=== PATIENT | male | born 1955 | race Caucasian/White ===

== ENCOUNTER → 2017-07-07 06:35 | Outpatient (CLI) | payer OTHER, SELFPAY ==
--- NOTE | 2017-07-07 06:37 | CT_ITS ---
STUDY: CT CHEST WITH CONTRAST REASON FOR EXAM: Male, 61 years old. History of pulmonary nodule. The patient has a history of a cervical cancer. The patient has a history of radiation chemotherapy. RADIATION DOSAGE (If Supplied By Facility): CTDIvol = ( 8.18 ) mGy, DLP = ( 282.72 ) mGycm TECHNIQUE: Transaxial imaging was performed following intravenous administration of 100 ml of Isovue 300 contrast material. Multiplanar coronal and sagittal images were reformatted. Individualized dose optimization techniques were used for this CT. COMPARISON: Comparison is made with prior study dated April 07, 2017. FINDINGS: A left-sided terry catheter is in situ. Emphysematous changes. There is a lobulated irregular nodular density in the peripheral aspect of the left lower lobe as seen on axial images 73 through 81. It presently measures 2.4 cm x 1.2 cm. This has increased in size as compared to prior study. A faint nodule measuring 5 mm is seen in the anterior aspect of the lingular segment of the left upper lobe anterior to the heart as seen on axial image #99. This may represent a focal area of scarring. Stable emphysematous changes. There is no demonstrated pleural abnormality. Normal heart and pericardium. Prominent left hilar lymph node measuring 2.2 cm. Normal hilar regions. Normal enhanced pulmonary arteries. Normal aorta arch and descending thoracic aorta. Normal osseous structures. A gastrostomy tube is seen within the stomach. CT/Chest WITH Contrast IMPRESSION: Increased size of the nodular density in the peripheral aspect of the left lower lobe. Enlargement of the left hilar lymph node. Electronically Signed: Yosef Blevins MD at 10:40 EST Tel [phone], Service support ,
[2017-07-07 06:51] LABS: CREATININE FINGERSTICK < 0.6 mg/dL (0.70-1.30); EGFR FINGERSTICK > 60.0000 mL/min (>60)
== END ==
PROVIDERS: Family Provider Nurse Practitioner Family; PCP Nurse Practitioner Family; Visit Provider Internal Medicine Medical Oncology
DX: C76.0 Malignant neoplasm of head, face and neck (principal); R91.1 Solitary pulmonary nodule; R59.0 Localized enlarged lymph nodes
CPT/HCPCS: 71260; Q9967

== ENCOUNTER → 2017-08-22 12:53 | Outpatient (CLI) | payer OTHER, SELFPAY ==
[2017-08-22 15:08] LABS: T4 Free Direct 1.85 ng/dL (0.76-1.46); Thyroid Stim Hormone (TSH) < 0.01 uIU/mL (0.358-3.74)
== END ==
PROVIDERS: Family Provider Nurse Practitioner Family; PCP Nurse Practitioner Family; Visit Provider Nurse Practitioner Family
DX: E03.8 Other specified hypothyroidism (principal)
CPT/HCPCS: 36415; 84439; 84443

== ENCOUNTER → 2017-09-16 06:49 | Outpatient (CLI) | payer OTHER, SELFPAY ==
--- NOTE | 2017-09-16 06:52 | CT_ITS ---
STUDY: CT CHEST WITH CONTRAST REASON FOR EXAM: Male, 61 years old. Pulmonary nodule- FOLLOW-UP. THROAT CANCER WITH CHEMO AND RADIATION RADIATION DOSAGE (If Supplied By Facility): CTDIvol = ( 10.16 ) mGy, DLP = ( 299.60 ) mGycm TECHNIQUE: Transaxial imaging was performed following intravenous administration of 100 ml of Isovue 300 contrast material. Individualized dose optimization techniques were used for this CT. COMPARISON: None. FINDINGS: The previously described subpleural nodule has increased in size since the previous study now measures 3.5 x 2.5 cm it measured previously 2.4 x 1.2 cm. There is a new left infrahilar mass measures approximately 4.2 x 3.4 cm resulted in complete occlusion of the right lower lobe bronchus with extension in the segmental bronchi of the right lower lobe. There is no demonstrated pleural abnormality. Normal heart and pericardium. Normal mediastinum. Normal hilar regions. Normal enhanced pulmonary arteries. Normal aorta arch and descending thoracic aorta. Normal osseous structures. There is no demonstrated abnormality of the visualized upper abdomen. CT/Chest WITH Contrast IMPRESSION: Findings are consistent with disease progression the previously described metastatic lesion in the left lung lower lobe has increased in size now measures 3.5 x 2.5 cm. There is a new left hilar mass measures 4.2 x 3.4 cm. Electronically Signed: Nando Angela MD at 12:54 EDT Tel , Service support ,
[2017-09-16 07:00] LABS: CREATININE FINGERSTICK < 0.6 mg/dL (0.70-1.30); EGFR FINGERSTICK > 60.0000 mL/min (>60)
== END ==
PROVIDERS: Family Provider Nurse Practitioner Family; PCP Nurse Practitioner Family; Visit Provider Internal Medicine Medical Oncology
DX: R91.1 Solitary pulmonary nodule (principal); Z85.21 Personal history of malignant neoplasm of larynx
CPT/HCPCS: 71260; Q9967; A4216; J2405

== ENCOUNTER 2017-09-26 12:00 | Day surgery (SDC) | payer OTHER, SELFPAY ==
[2017-09-26] VITALS (8 sets, daily range): BP systolic 107–127; BP diastolic 62–79; PULSE 72–96; RESP 12–16; TEMP 36.6–37.1; O2SAT 94–100; BMI 19.5
--- NOTE | 2017-09-26 | IMM_PTH ---
PATIENT: ALBERTO GRIDER LOC: EN U#:[id number] AGE/SX: 61/M ROOM: RE09/26/[address]: Dr. Carlos Robles DO : 1955 BED: DIS: 09/26/2017 SPEC #: [id number] RECD: 09/29/17 11:59 STATUS: IQRA REQ #: [id number] LUCIANO: 09/26/17 00:[address]: Carlos Robles DEPT: IMMUNOHISTOCHEMISTRY RECD BY: Tati Saez ENTERED: 09/29/17 12:01 SP TYPE: IMMUNO OTHR DR: Allison Sarmiento, WOUND CARE SPECIALIST-C Tissues: D - Lung, NOS Procedures: CK20 (add) CK5-6 (add) CK7 (add) CK8 (add) KI-67 (add) P16 (add) P53 (add) TTF1 (add) Pankeratin (initial) P40 (add) PHYSICIAN & INSTITUTION [place] [phone] SPECIMEN INFORMATION: Tissue Source: D ? Left hilar mass fluid Clinical Info: Hilar mass Specimen Number: [id number] CPT code: 55437, 98286 x9 METHODOLOGY: Deparaffinized sections of prefer/formalin-fixed tissue or PAP/DQ stained slides are incubated with monoclonal/polyclonal antibodies/oligonucleotide probes. Localization is made via biotin free immunoperoxidase method. Appropriate controls are performed and reacted as expected. Results on target cell population are indicated in the following table: RESULTS: ANTIBODY / CLONE RESULT Block D AE1-3 (AE1/AE3/PCK26) positive CK7 (OV-TL12/30) positive, weak CK8 (60ehbtA43) positive, weak CK20 (KS20.8) negative CK5-6 (D5 & 1684) positive P16 (E6H4) negative Ki-67 (30-9) positive, moderate P53 (DO-7) positive, moderate P40 (BC28) positive TTF-1 (8G7G3/1) negative These tests were developed and their performance characteristics determined by [facility]. They may not have been cleared or approved by the U.S. Food and Drug Administration. The FDA has determined that such clearance or approval is not necessary. INTERPRETATION: D. Left hilar mass fluid: Moderately differentiated non-small cell carcinoma, favor squamous cell carcinoma. SJ:angelia 09/30/17
--- NOTE | 2017-09-26 | FLU_PTH ---
PATIENT: ALBERTO GRIDER LOC: EN U#:[id number] AGE/SX: 61/M ROOM: RE09/26/[address]: Dr. Carlos Robles DO : 1955 BED: DIS: 09/26/2017 SPEC #: [id number] RECD: 09/26/17 14:57 STATUS: IQRA CAROLINE #: [id number] LUCIANO: 09/26/17 00:[address]: Carlos Robles DEPT: CYTOLOGY RECD BY: Og Solano ENTERED: 09/26/17 14:58 SP TYPE: Fluid OTHR DR: Allison Sarmiento, ROYCE Tissues: A - Lung, NOS B - Lung, NOS C - Lung, NOS D - Lung, NOS Procedures: Special Stain Group II Surgery Specimen Level IV Cytospin Fluid Comments: @ Specimen number changed from [id number] to [id number] @ on 09/29/17 at 0852 by RGOOD. HEADER OPERATION: EBUS with TBNA and endobronchial biopsy PRE-OP DIAGNOSIS: Hilar mass TISSUE SUBMITTED: A-C - EBUS FNA left hilar mass, D ? Left hilar mass fluid for cytology DIAGNOSIS CYTOLOGY A. EBUS, left hilar mass, FNA, aspiration #1 (smears): Malignant cells present mixed with necrotic cells and inflammation, suspicious for squamous cell carcinoma. B. EBUS, left hilar mass, FNA, aspiration #2 (smears): A few atypical squamous cells noted, suspicious for carcinoma. C. EBUS, left hilar mass, FNA, aspiration #3 (smears): Malignant cells present mixed with necrotic cells and inflammation, suspicious for squamous cell carcinoma. D. Left hilar mass fluid (cell block): Malignant cells present derived from moderately differentiated non-small cell carcinoma, favor squamous cell carcinoma. See comment. SJ:angelia 09/29/17 COMMENT The specimen is evaluated at the time of procedure by Dr. Simental. Immediate evaluation: A. EBUS, FNA, left hilar mass, aspiration #1: Atypical squamous mixed with inflammation. Adequate. Reported to Dr. Robles at 1:55 p.m. B. EBUS, FNA, left hilar mass, aspiration #2: A few atypical squamous cells noted. Reported to Dr. Robles at 2:00 p.m. C. EBUS, FNA, left hilar mass, aspiration #3: Atypical squamous mixed with inflammation. Adequate. Reported to Dr. Robles at 2:00 p.m. D. Immunohistochemistry ([id number]) supports the above diagnosis. CYTOLOGY STUDY Slides are reviewed. CYTOLOGY GROSS A ? Received labeled with the patient?s name, and designated ?EBUS FNA left hilar mass.? The specimen consists of two smears that are submitted for immediate cytologic evaluation (wet read). B - Received labeled with the patient?s name, and designated ?EBUS FNA left hilar mass.? The specimen consists of two smears that are submitted for immediate cytologic evaluation (wet read). C - Received labeled with the patient?s name, and designated ?EBUS FNA left hilar mass.? The specimen consists of two smears that are submitted for immediate cytologic evaluation (wet read). D - Received labeled with the patient's name and and designated per the requisition as left hilar mass. Submitted for cytology preparation including cell block. 09/26/17 TC:0 CPT: 47704, 60134, 06828 x2, 99613
--- NOTE | 2017-09-26 | LUNG_PTH ---
PATIENT: ALBERTO GRIDER LOC: EN U#:[id number] AGE/SX: 61/M ROOM: RE09/26/[address]: Dr. Carlos Robles DO : 1955 BED: DIS: 09/26/2017 SPEC #: [id number] RECD: 09/26/17 14:58 STATUS: IQRA CAROLINE #: [id number] LUCIANO: 09/26/17 00:[address]: Carlos Robles DEPT: SURGICAL PATHOLOGY RECD BY: Og Solano ENTERED: 09/26/17 14:58 SP TYPE: LUNG BX OTHR DR: Allison Sarmiento, CLEARANCE REP-C Tissues: Lung, NOS Procedures: Surgery Specimen Level IV HEADER OPERATION: EBUS with TBNA and endobronchial biopsy PRE-OP DIAGNOSIS: Hilar mass TISSUE SUBMITTED: Endobronchial biopsy, endobronchial lesion MICROSCOPIC DIAGNOSIS Endobronchial lesion, endobronchial biopsy: A fragment of necrotic material with atypical squamous cells, suspicious for carcinoma. Fragments of benign bronchial mucosa with chronic inflammation. See comment. MC:angelia 09/29/17 COMMENT Please correlate with corresponding EBUS, FNA, cytology ([id number]) with diagnosis of moderately differentiated non-small cell carcinoma, favor squamous cell carcinoma. MICROSCOPIC DESCRIPTION Slides are reviewed. GROSS DESCRIPTION Received in fixative is one container labeled with the patient's name and designated endobronchial biopsy, endobronchial lesion. The specimen consists of two irregular fragments of britt soft tissue that in aggregate measure 0.4 x 0.2 x 0.1 cm. The specimen is totally submitted in one cassette. / MC:angelia 09/26/17 TC:5 CPT: 51135
--- NOTE | 2017-09-26 14:30 | OP.PCM_ITS ---
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 As part of the patient's routine follow-up a PET CT was completed in September 2016 which revealed hypermetabolic activity within the left lower lobe and within the laryngeal structures. The patient underwent biopsies of his larynx in October 2016 which were negative. He also had a CT-guided lung biopsy completed of the left lower lobe lung nodule in December 2016 which was also negative. He then followed up with Dr. Leihg of oncology on September 18, 2017, after having undergone a follow-up chest CT with contrast, dated September 16. That imaging study demonstrated increased size in the left lower lobe lung nodule, along with a new infrahilar mass, which appeared to cause compression/obstruction of the left lower lobe mainstem bronchus. Therefore, the patient was referred to undergo bronchoscopy in order to obtain tissue biopsies. PROCEDURE: Bronchoscopy with endoscopic endobronchial ultrasound (EBUS), transbronchial needle aspiration, endobronchial biopsies INDICATION: Left hilar mass PHYSICIAN: Carlos Robles DO ANESTHETIC: This procedure was completed under the supervision of anesthesia. Please refer to their documentation accordingly. COMPLICATIONS: No immediate complications noted. DESCRIPTION OF PROCEDURE: A history and physical has been performed. Please see outpatient pulmonary clinic note. The patient's medications and allergies have been reviewed. The risks and benefits of the procedure and sedation options and risks were discussed with the patient at length. All questions were answered and informed consent was obtained. The patient's identification and proposed procedure were verified prior to the procedure by the physician. ASA GRADE ASSESSMENT: II After obtaining informed consent, the bronchoscope was introduced through the mouth, via the endotracheal tube and advanced to the tracheal bronchial tree bilaterally. The procedure was accomplished without difficulty. The patient tolerated the procedure well. FINDINGS: The trachea was of normal caliber. The carroll is sharp. The tracheal bronchial trees of the left and right lungs were examined to at least the first subsegmental level. The right tracheal bronchial tree was grossly normal in appearance. There was a large circumferential endobronchial lesion noted at the bifurcation of the left upper and left lower lobes. The lesion appeared to nearly completely obstruct the orifice of the left lower lobe takeoff. Once the airway inspection was completed, the standard bronchoscope was withdrawn and a convex probe endobronchial ultrasound (EBUS) bronchoscope was inserted through the same route. The endobronchial ultrasound endoscope was then utilized to systematically examine the superior/inferior mediastinal and hilar lymph nodes to assist with fine-needle aspiration. In total, 3 transbronchial needle aspirations were completed within the identified left hilar mass. On ultrasound, the mass measured at least 3.5 x 4.5 cm. Rapid on-site evaluation (LOPEZ): Preliminary cytology was suggestive of atypical squamous cells. Final pathology results are pending. Following this, the EBUS endoscope was subsequently withdrawn from the patient' s airway through the endotracheal tube. A conventional bronchoscope was then reinserted into the patient's airway, at which time, a total of 4 endobronchial biopsies were obtained from the endobronchial lesion noted at the bifurcation of the left upper and left lower lobes. Following this, cold saline was instilled to assist with hemostasis. Any retained secretions and/or blood was subsequently cleared. The bronchoscope was then withdrawn without complication. The patient was then transferred to the PACU, where they recovered in the usual fashion. IMPRESSION: 1. Large left hilar mass. Transbronchial needle aspiration was completed with preliminary cytology suggestive of atypical squamous cells. 2. Large endobronchial lesion noted at the bifurcation of the left upper and left lower lobes. 4 endobronchial biopsies were completed here. RECOMMENDATIONS: 1. Await final pathology results. 2. Follow-up in the pulmonary medicine clinic as scheduled. Code Visit 9xxxx: Other Procedure See Report - [id number]
== END 2017-09-26 16:36 | disposition home or self-care (01) ==
LOC: EN 12:00 → AC 12:02
PROVIDERS: Family Provider Nurse Practitioner Family; PCP Nurse Practitioner Family; Visit Provider Internal Medicine Critical Care Medicine
PROC: BB4BZZZ Ultrasonography of Pleura (ICD-10-PCS; principal; 2017-09-26 12:00)
DX: C34.32 Malignant neoplasm of lower lobe, left bronchus or lung (principal); E03.9 Hypothyroidism, unspecified; Z85.21 Personal history of malignant neoplasm of larynx; Z87.891 Personal history of nicotine dependence; Z79.899 Other long term (current) drug therapy; Z93.1 Gastrostomy status
CPT/HCPCS: 00520; 31625; 31652; 88108; 88305; 88313; 88341; 88342; J7120; A4216

== ENCOUNTER → 2017-10-14 16:24 | Outpatient (CLI) | payer MEDICARE, OTHER, SELFPAY ==
--- NOTE | 2017-10-14 16:41 | MRI_ITS ---
MR Brain WO/W Contrast INDICATION: New Lung Ca diagnosis. No complaints from patient COMPARISON: None TECHNIQUE: Multiplanar multisequence MRI examination of the brain without and with IV contrast. 6 mL of Gadavist given intravenously. FINDINGS: There is no evidence of restricted diffusion. The ventricular system is normal in size. Cortical sulci and basal cisterns are well seen. Minimal periventricular and few patchy subcortical T2/FLAIR signal hyperintensities are seen, compatible with very mild early chronic ischemic microvascular white matter changes. There is no evidence of parenchymal hemorrhage, mass effect, midline shift, or abnormal extra-axial collection. After contrast administration, there is no abnormal enhancement identified. Flow voids of the [place] vascularity are present. Paranasal sinuses and mastoid air cells are clear. MRI/Brain W/WO Contrast IMPRESSION: No evidence of intracranial metastatic disease. Minimal chronic ischemic microvascular white matter changes, otherwise unremarkable study. at 2329 Reported and signed by: Blanca Davila MD Electronically Signed: Blanca Davila MD at 23:27 EDT Tel , Service support ,
== END ==
PROVIDERS: Family Provider Nurse Practitioner Family; PCP Nurse Practitioner Family; Visit Provider Internal Medicine Medical Oncology
DX: C34.92 Malignant neoplasm of unspecified part of left bronchus or lung (principal)
CPT/HCPCS: 70553; A9585

== ENCOUNTER → 2017-10-16 11:32 | Outpatient (CLI) | payer MEDICARE, OTHER, SELFPAY ==
--- NOTE | 2017-10-16 08:00 | PET_ITS ---
EXAMINATION: FDG PET CT INDICATIONS: A 61-year-old male with reported history of primary head and neck and lung carcinoma presenting for restaging examination. COMPARISON EXAMINATION: Prior FDG PET study dated 09/30/16. INDEX LESION SIZE SUV INTERPRETATION PERSISTENT and NEW: Left mid posterolateral hemithorax pulmonary parenchyma, left lower posterior lung zone 8.1 cm x 4.5 cm (frame 150) compared to 11.5 mm, 09/30/16 12.7 compared to 2.9, 09/30/16 Fulfills quantitative criteria for viable neoplasm, interim metabolic progression NEW: Left thoracic perihilum, precarinal posterior mediastinum 51.9 mm x 48.2 mm 14.3 Fulfills quantitative criteria for viable neoplasm PREVIOUS: Left mid posterolateral hemithorax, left lower lobe, laryngeal structures Demonstrate metabolic resolution on the current examination TECHNIQUE: Following the intravenous administration of 14.84 mCi of F-18 deoxyglucose via the right antecubital fossa, multiplanar image acquisitions of the neck, chest, abdomen and pelvis to level of mid thigh, obtained at one hour post radiopharmaceutical administration contemporaneously interpreted with the current CT of the neck, chest, abdomen and pelvis to level of mid thigh, dated 10/16/17 via coregistration and prior FDG PET study dated 09/30/16 reveal: SERUM GLUCOSE LEVEL: 116 mg/dl. HEIGHT: 68 inches. WEIGHT: 130 lbs. FINDINGS: 1. Persistent and newly defined increased glucose concentration is manifest in the left mid-lower posterior, posterolateral hemithorax pulmonary parenchyma. The calculated maximum standard uptake value is 12.7 compared to 2.9 defined on the FDG PET study dated 09/30/16. The maximal axial diameter of the corresponding metabolic, morphologic abnormality on review of CT of the thorax dated 10/16/17 is 8.1 cm (transverse) x 4.5 cm (AP). 2. Newly defined increased glucose concentration is manifest in the left thoracic perihilum and subcarinal mediastinum, precarinal posterior mediastinum, retroesophageal in location generating a calculated maximum standard uptake value of 14.3. The maximal axial diameter of the largest metabolic, morphologic abnormality on review of CT of the thorax dated 10/16/17 is 51.9 mm (transverse) x 48.2 mm (AP). 3. Normal physiologic distribution of the radiopharmaceutical is apparent in the hepatic (1.5) and splenic parenchyma, both renal units, bladder and visualized intestinal tract. There is uniform distribution of the radiopharmaceutical concentration compared on the cerebellar hemispheres and cerebral cortex. Diffuse intestinal tract activity is noted throughout all four quadrants of the abdominal-pelvic retroperitoneum, mesentery consistent with normal physiologic distribution of the radiopharmaceutical. Prominent glucose metabolism is manifest within the oral cavity without definitive soft tissue abnormalities noted on review of CT of the head and neck dated 10/16/17. There is prominent glucose metabolism observed in the right-left atrial and ventricular myocardium. The previously identified left mid posterolateral hemithorax pulmonary parenchyma, left lower lobe, as well as laryngeal structure hypermetabolic foci noted on the FDG PET study dated 09/30/16 are not apparent on the current examination. Pertinent CT findings are as follows. CHEST: Pjwj-E-Jzlo-MediPort placement is noted. Atherosclerotic calcification is defined in the thoracic aorta without evidence of dilatation, aneurysm formation. Coronary arterial calcification is observed. There are no parenchymal densities-nodules in noted the right-left hemithorax manifesting quantitatively significant increased glucose metabolism. Interstitial changes defined in the left mid-lower posterior lung zone demonstrate no evidence of facilitated glucose metabolism. A left hemithorax pleural effusion demonstrates no evidence of facilitated glucose metabolism. ABDOMEN AND PELVIS: Atherosclerotic calcification is defined in the abdominal aorta without evidence of dilatation, aneurysm formation. Pelvic arterial calcification is observed. Dystrophic calcification is manifest within the prostate gland without evidence of quantitatively significant enhanced glucose metabolism. Right-left inguinal soft tissue densities with fatty hilus formation are non-glucose avid. SKELETAL: Degenerative changes defined in the cervical, thoracic and lumbar spine demonstrate no evidence for glucose hypermetabolism. PET/PET/CT Tumor Base -Thigh Subs IMPRESSION: 1. ABNORMAL EXAMINATION INDICATIVE OF MALIGNANT VIABLE NEOPLASM. 2. Redefined and newly apparent increased glucose metabolism manifest in the left hemithorax pulmonary parenchyma fulfills quantitative criteria for viable neoplasm. (Rose et al, Annals of Internal Medicine, 138:724, 2003). 3. Facilitated radiopharmaceutical concentration noted in the precarinal posterior mediastinum and left thoracic perihilum fulfills quantitative criteria for viable neoplasm. (Ximena et al, Journal of Clinical Oncology 16:2142, 1998). 4. There is interim metabolic resolution of the previously identified left lower lobe pulmonary parenchymal, as well as laryngeal structure hypermetabolic abnormalities. 5. Overall, compared to the prior FDG PET study dated 09/30/16, there is apparent current expression of defined viable neoplastic disease within the context of the left lower hemithorax pulmonary parenchyma, as well as left thoracic perihilum, precarinal posterior mediastinum. Electronic Signature Evelio Pat D.O. Electronically Signed: Evelio Pat DO at 23:50 EDT Tel , Service support ,
== END ==
PROVIDERS: Family Provider Nurse Practitioner Family; PCP Nurse Practitioner Family; Visit Provider Internal Medicine Medical Oncology
DX: C34.32 Malignant neoplasm of lower lobe, left bronchus or lung (principal)
CPT/HCPCS: 78815; A9552; A4216

== ENCOUNTER → 2017-11-07 14:12 | Outpatient (CLI) | payer MEDICARE, OTHER, SELFPAY ==
[2017-11-06 15:18] VITALS: BMI 20.7
--- NOTE | 2017-11-07 | IMM_PTH ---
PATIENT: ALBERTO GRIDER LOC: U#:[id number] AGE/SX: 69/M ROOM: RE11/07/[address]: Dr. Vish Ruiz DO : 1955 BED: DIS: SPEC #: [id number] RECD: 11/11/17 11:00 STATUS: IQRA REJere #: [id number] LUCIANO: 11/07/17 00:[address]: Vish Ruiz DEPT: IMMUNOHISTOCHEMISTRY RECD BY: Eliseo aWhl ENTERED: 11/11/17 11:03 SP TYPE: IMMUNO OTHR DR: Allison Sarmiento, SUPERVISOR [employer]SE-C Tissues: THORACIC FLUID Procedures: RCC (add) NAPSIN A (add) Magno Ret (add) CK20 (add) CK5-6 (add) CK7 (add) CK8 (add) HEP PAR (add) MACRO (add) PSA (add) TTF1 (add) AE1 (add) P40 (add) Vimentin (initial) PHYSICIAN & [address] [address] SPECIMEN INFORMATION: Tissue Source: Thoracic fluid Clinical Info: Pleural effusion Specimen Number: [id number] CPT code: 03867, 12824 x13 METHODOLOGY: Deparaffinized sections of prefer/formalin-fixed tissue or PAP/DQ stained slides are incubated with monoclonal/polyclonal antibodies/oligonucleotide probes. Localization is made via biotin free immunoperoxidase method. Appropriate controls are performed and reacted as expected. Results on target cell population are indicated in the following table: RESULTS: ANTIBODY / CLONE RESULT Vimentin (V9) negative * AE1-3 (AE1/AE3/PCK26) negative * CK7 (OV-TL12/30) negative * CK8 (44tucsZ08) negative * CK20 (KS20.8) negative TTF-1 (8G7G3/1) negative Napsin A (Rabbit Polyclonal) negative HepPar (OCh1E5) negative RCC (PN-15) negative PSA (ER-PR8) negative Macro (HAM-56) negative CK5-6 (D5 & 1684) negative * CALRET (polyclonal) negative * P40 (BC28) negative * - Positive in mesothelial cells - Positive in the macrophages These tests were developed and their performance characteristics determined by [facility]. They may not have been cleared or approved by the U.S. Food and Drug Administration. The FDA has determined that such clearance or approval is not necessary. INTERPRETATION: Thoracentesis fluid: Negative for malignant cells. SJ:mona 11/11/17
--- NOTE | 2017-11-07 | FLU_PTH ---
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 Vish Ruiz DO : 1955 BED: DIS: SPEC #: [id number] RECD: 11/07/17 16:50 STATUS: IQRA CAROLINE #: [id number] LUCIANO: 11/07/17 00:[address]: Vish Ruiz DEPT: CYTOLOGY RECD BY: Og Solano ENTERED: 11/10/17 10:05 SP TYPE: Fluid OTHR DR: Allison Sarmiento WORKERS COMPENSATION MANAGER-C Tissues: THORACIC FLUID Procedures: Pap Stain (control) Special Stain Group II Surgery Specimen Level IV Cell Block Cytospin Fluid HEADER OPERATION: Ultrasound-guided left thoracentesis PRE-OP DIAGNOSIS: Pleural effusion TISSUE SUBMITTED: Thoracentesis fluid for cytology DIAGNOSIS CYTOLOGY Thoracentesis (Cytospin and cell block): Negative for malignant cells. See comment. SJ:leandro 11/11/17 COMMENT Immunohistochemistry ([id number]) supports the above diagnosis. Please make reference to previous specimen cytology [id number] Left hilar mass fluid (cell block) with diagnosis of malignant cells present derived from moderately differentiated non-small cell carcinoma, favor squamous cell carcinoma. Correlation with clinical findings and appropriate followup are necessary. Case has been reviewed in consultation with Dr. Maldonado who concurs with the above diagnosis. IDC:AM CYTOLOGY STUDY Slides are reviewed. CYTOLOGY GROSS Received is 50 ml of red cloudy fluid labeled with the patient's name and and designated per the requisition as left thoracentesis. Submitted for cytology preparation including cell block. / 11/10/17 TC: 5 CPT: 18154, 64341
--- NOTE | 2017-11-07 14:16 | US_ITS ---
PROCEDURE: ULTRASOUND GUIDED THORACENTESIS. DATE: November 07, 2017.. INDICATION: Male, 61 years old. Left pleural effusion PHYSICIAN: Yosef Blevins M.D. PROCEDURE: The risks, benefits, and alternatives to the procedure were explained to the patient. The specific risks of bleeding, infection, and pneumothorax requiring chest tube insertion were discussed and accepted. Written informed consent was obtained. Ultrasonographic evaluation of the left lower pleural space was carried out. An adequate pocket was identified. The patient was placed in the sitting, upright position. The overlying skin was prepped and draped in sterile fashion. 1% lidocaine was administered subcutaneously for local anesthesia. Under ultrasound guidance, a 5French thoracentesis needle/catheter system was advanced into the left posterior lower pleural fluid collection. Approximately 530 mL of blood tinged fluid was drained. The catheter was removed, and a sterile dressing was applied. A specimen was collected and sent to the laboratory for analysis, as requested by the referring clinician. The patient tolerated the procedure well. A chest x-ray was ordered. US/Thoracentesis W US IMPRESSION: Ultrasound-guided left thoracentesis. Electronically Signed: Yosef Blevins MD at 15:56 EDT Tel [phone], Service support ,
--- NOTE | 2017-11-07 15:00 | RAD_ITS ---
STUDY: X-RAY CHEST REASON FOR EXAM: Male, 61 years old. The patient is status post left thoracentesis. TECHNIQUE: PA expiration and inspiration chest radiographs. COMPARISON: None. FINDINGS: The patient is status post left thoracentesis. No evidence of pneumothorax. Residual pleural parenchymal changes at the left lung base. RAD/Chest Insp/Exp 2 View IMPRESSION: There is no evidence of pneumothorax following the left thoracentesis. Electronically Signed: Yosef Blevins MD at 15:49 EDT Tel [phone], Service support ,
[2017-11-07 16:31] LABS: Cytology, Body Fluid / CSF SEE PATHOLOGY REPORT
[2017-11-07 17:06] LABS: Body Fluid Mononuclear WBC # 0.518 10^3/uL; Body Fluid Mononuclear WBC % 65.2 %; Body Fluid Polynuclear WBC # 0.277 10^3/uL; Body Fluid Polynuclear WBC % 34.8 %; Body Fluid Total Cells Counted 0.859 10^3/ul; White Blood Count/Body Fluid 0.795 10^3/uL
[2017-11-07 18:16] LABS: Lymphocytes 17 %; Macrophages 12 %; Monocytes 7 %; Neutrophil (Segs) 44 %
[2017-11-07 18:17] LABS: Auto B Fluid Analyzer BKGD Ct COUNTS W/IN LIMITS (W/IN LIMITS); Mesothelial Cells 20 %
[2017-11-07 18:18] LABS: Appearance/Body Fluid CLOUDY; Color/Body Fluid PINK; Source- Body Fluid THORACENTESIS
[2017-11-11 11:26] LABS: Pathologist Comment/Body Fluid Reviewed
== END ==
PROVIDERS: Family Provider Nurse Practitioner Family; PCP Nurse Practitioner Family; Visit Provider Student in an Organized Health Care Education/Training Program
DX: J90 Pleural effusion, not elsewhere classified (principal)
CPT/HCPCS: 32555; 71046; 87070; 87075; 87205; 88108; 88305; 88313; 88341; 88342; 89050

== ENCOUNTER 2017-11-10 09:23 | Inpatient (IN) | payer MEDICARE, OTHER, SELFPAY ==
[2017-11-06 15:18] VITALS: BMI 20.7
[2017-11-10] VITALS (12 sets, daily range): BP systolic 94–136; BP diastolic 50–76; PULSE 90–103; RESP 16–28; TEMP 36.8–37.9; O2SAT 94–98; BMI 25.0; BMI 18.9; BMI 19.0
--- NOTE | 2017-11-10 09:38 | EKG12_ITS ---
Test Reason : SOB Blood Pressure : / mmHG Vent. Rate : 100 BPM Atrial Rate : 100 BPM P-R Int : 116 ms QRS Dur : 078 ms QT Int : 308 ms P-R-T Axes : 070 055 051 degrees QTc Int : 397 ms Normal sinus rhythm Normal ECG Confirmed by MIKEY TURNER MD ([id number]), film editor supervisor WILLIAM CARLSON ([id number]) on 11/11/2017 9:56:50 AM Referred By: Vish Ruiz Confirmed By:MIKEY TURNER MD
--- NOTE | 2017-11-10 09:38 | RAD_ITS ---
STUDY: X-RAY CHEST REASON FOR EXAM: Male, 61 years old. Dyspnea and shortness of breath. History of pleural effusion. TECHNIQUE: Single AP portable view of the chest. COMPARISON: Comparison is made with prior study dated November 07, 2017. FINDINGS: A left-sided portacatheter is seen with the tip at the junction of the superior cava and right atrium. Since prior study, there is increasing pleural parenchymal changes at the left lung base with loss of volume in the left hemithorax. The right lung is hyperexpanded and clear. Normal size heart. Normal mediastinum and tashia. Normal visualized pulmonary arteries. Normal visualized aortic arch and descending thoracic aorta. Normal visualized thoracic spine. Normal visualized ribs, clavicles, and shoulders. There is no demonstrated abnormality of the visualized soft tissue structures of the upper abdomen. RAD/Chest 1 View (Portable) IMPRESSION: Progressive pleural parenchymal changes at the left lung base with volume loss in the left hemithorax. Electronically Signed: Yosef Blevins MD at 10:26 EDT Tel [phone], Service support ,
[2017-11-10] MEDS: Albuterol 2.5 MG/3 ML VIAL.NEB. INHALATION (09:53)
[2017-11-10 11:02] LABS: Absolute Lymphocyte Count 0.74 X10^3/ul (0.83-4.51); Absolute Neutrophil Count 8.3 X10^3/uL (2.0-7.7); Basophil# 0.02 X10^3/uL; Basophil% 0.2 % (0-1); Eosinophil# 0.05 X10^3/uL; Eosinophils% 0.5 % (0-5); Hematocrit 27.3 % (40-54); Hemoglobin 8.6 g/dl (13.0-16.5); Lymphocyte # 0.74 X10^3/ul (4.0); Lymphocyte % 7.9 % (19-41); Mean Corp Hgb Conc 31.5 g/gl (32-36); Mean Corpuscular Hgb 29.2 pg (27.0-32.0); Mean Corpuscular Volume 92.5 fL (80-94); Mean Platelet Vol. 8.1 fl (6.2-12.0); Monocyte# 0.29 X10^3/uL; Monocyte% 3.1 % (0-10); Neutrophil % 88.1 % (47-70); POSITIVE COUNT NO; POSITIVE DIFFERENTIAL NO; POSITIVE MORPHOLOGY YES; Platelet Count 358 K/mm3 (150-450); RBC Distribution Width CV 15.3 % (11.6-14.6); RBC Distribution Width SD 52.5 fl (35.1-43.9); Red Blood Count 2.95 M/mm3 (4.6-6.2); White Blood Count 9.4 K/mm3 (4.4-11.0)
[2017-11-10 11:03] LABS: Differential Indicated SCAN CRITERIA MET
[2017-11-10 11:16] LABS: Anion Gap 7 (5-15); BUN 28 mg/dL (7-18); BUN/Creat Ratio 29.8 RATIO (10-20); Calcium,Total 9.3 mg/dL (8.5-10.1); Chloride 95 mmol/L (98-107); Creatinine, Serum 0.94 mg/dL (0.70-1.30); EST Glomerular Filtration Rate 87 mL/min (>60); Est Glom Filt Rate - Afr Amer 105 mL/min (>60); Estimated Creatinine Clearance 77.16 ml/min; Glucose 137 mg/dL (74-106); Potassium 4.1 mmol/L (3.5-5.1); Sodium Level 136 mmol/L (136-145)
[2017-11-10 11:22] LABS: Hypochromasia 2+; Platelet Estimate ADEQUATE (ADEQ); Polychromasia 1+
--- NOTE | 2017-11-10 11:46 | ED.VISSUMM ---
- ER Visit Summary Date of Service: 11/10/17 Chief Complaint: [shortness of breath, chest pain] History of Present Illness: The patient is a 61 M [the presents with worsening shortness of breath over the last 2 days. He has a history of recently diagnosed left-sided lung cancer and had thoracentesis this past Friday. He states he initially felt better then began to feel progressively short of breath again over the last 2 days. He also describes intermittent chest pain and right-sided jaw pain. No diaphoresis or exertional symptoms. He is scheduled to start chemotherapy tomorrow. He has a history of past smoking. He appears in no acute distress. He has no other complaints.] Physical Examination: [General: The patient appears well and in no apparent distress. Patient is resting comfortably on cart. Skin: Warm, dry, no pallor noted. No rash. Left anterior chest port site benign. Head: Normocephalic, atraumatic Neck: Supple, nontender. No JVD. Eye: PERRLA, EOMI ENT: Moist mucus membranes, pharynx within normal limits. Cardiovascular: Regular Rate and Rhythm, no gallups or rubs Respiratory: Patient is in no distress, no accessory muscle use, lungs are clear to auscultation on the right side, diminished at the left base, no wheezing, rales or rhonchi Musculoskeletal: normal ROM, no deformity, no tenderness, no swelling. 2+ radial and DP pulses symmetric. GI: No tenderness to palpation, no masses appreciated. No rebound, guarding, or rigidity noted. Neurological: A&O, normal strength and sensation. GCS 15. Psychiatric: Cooperative] Test Results: [EKG shows sinus rhythm with a rate of 100, no acute ischemic changes or arrhythmia, overall unchanged from prior EKG. Hemoglobin is 8.6. CO2 is 34 and BUN is 28. Troponin and BNP are negative. Chest x-ray shows increased left-sided parenchymal changes from recent prior study.] Emergency Department Course and Treatment: [Patient was given albuterol breathing treatment without significant improvement of his symptoms. Chest x-ray finds reaccumulated and worsened left-sided pleural effusion. Patient is not hypoxic and appears in no respiratory distress. On reevaluation at 1140 pulse oximetry 95% on room air. His blood pressure is about 100 systolic which he states is normal for him. He has no fever. Given patient's chest pain and dyspnea I feel he requires admission to the hospital for further evaluation of his chest pain as well as possible repeat thoracentesis or placement of a drain for his left-sided pleural effusion that is making him symptomatically dyspneic. Given his cancer he may need evaluation for possible PE. CTA imaging not able to be performed in the emergency department due to IV dye allergy. Patient would possibly be a candidate for a VQ scan upon admission if indicated. This was discussed with patient and family who are agreeable. Patient's Heart Score is 4. Patient discussed with hospitalist, Dr. Menon, who is agreeable with admission. Patient admitted to PCU in stable condition. ] Treatment Plan: [see above] Disposition: [admission] Impression: [Dyspnea, Chest Pain, Recurrent Pleural Effusion] This note was generated with [employer] dictation software. It may contain incorrect words, spelling, and punctuation that were not noted in review of the chart prior to signing ED Disposition - Plan for ED Patient: Chief Complaint: Shortness of Breath Referrals: Allison Sarmiento FLUME MAKER-C [Primary Care Provider] -
--- NOTE | 2017-11-10 11:51 | ED.DCSUM_ITS ---
- ER Visit Summary Date of Service: 11/10/17 Chief Complaint: [shortness of breath, chest pain] History of Present Illness: The patient is a 61 M [the presents with worsening shortness of breath over the last 2 days. He has a history of recently diagnosed left-sided lung cancer and had thoracentesis this past Friday. He states he initially felt better then began to feel progressively short of breath again over the last 2 days. He also describes intermittent chest pain and right-sided jaw pain. No diaphoresis or exertional symptoms. He is scheduled to start chemotherapy tomorrow. He has a history of past smoking. He appears in no acute distress. He has no other complaints.] Physical Examination: [General: The patient appears well and in no apparent distress. Patient is resting comfortably on cart. Skin: Warm, dry, no pallor noted. No rash. Left anterior chest port site benign. Head: Normocephalic, atraumatic Neck: Supple, nontender. No JVD. Eye: PERRLA, EOMI ENT: Moist mucus membranes, pharynx within normal limits. Cardiovascular: Regular Rate and Rhythm, no gallups or rubs Respiratory: Patient is in no distress, no accessory muscle use, lungs are clear to auscultation on the right side, diminished at the left base, no wheezing, rales or rhonchi Musculoskeletal: normal ROM, no deformity, no tenderness, no swelling. 2+ radial and DP pulses symmetric. GI: No tenderness to palpation, no masses appreciated. No rebound, guarding, or rigidity noted. Neurological: A&O, normal strength and sensation. GCS 15. Psychiatric: Cooperative] Test Results: [EKG shows sinus rhythm with a rate of 100, no acute ischemic changes or arrhythmia, overall unchanged from prior EKG. Hemoglobin is 8.6. CO2 is 34 and BUN is 28. Troponin and BNP are negative. Chest x-ray shows increased left-sided parenchymal changes from recent prior study.] Emergency Department Course and Treatment: [Patient was given albuterol breathing treatment without significant improvement of his symptoms. Chest x- ray finds reaccumulated and worsened left-sided pleural effusion. Patient is not hypoxic and appears in no respiratory distress. On reevaluation at 1140 pulse oximetry 95% on room air. His blood pressure is about 100 systolic which he states is normal for him. He has no fever. Given patient's chest pain and dyspnea I feel he requires admission to the hospital for further evaluation of his chest pain as well as possible repeat thoracentesis or placement of a drain for his left-sided pleural effusion that is making him symptomatically dyspneic. Given his cancer he may need evaluation for possible PE. CTA imaging not able to be performed in the emergency department due to IV dye allergy. Patient would possibly be a candidate for a VQ scan upon admission if indicated. This was discussed with patient and family who are agreeable. Patient's Heart Score is 4. Patient discussed with hospitalist, Dr. Menon, who is agreeable with admission. Patient admitted to PCU in stable condition. ] Treatment Plan: [see above] Disposition: [admission] Impression: [Dyspnea, Chest Pain, Recurrent Pleural Effusion] This note was generated with [employer] dictation software. It may contain incorrect words, spelling, and punctuation that were not noted in review of the chart prior to signing ED Disposition - Plan for ED Patient: Chief Complaint: Shortness of Breath Referrals: Allison Sarmiento TOPPIECE CUTTER-C [Primary Care Provider] -
--- NOTE | 2017-11-10 12:57 | NURSING ---
called ER nurses medical assistants phlebotomists, okay to send up patient
--- NOTE | 2017-11-10 13:19 | HP.PCM_ITS ---
Problem List (1) Chronic anemia Status: Chronic (2) Dysphagia Status: Chronic (3) Non-small cell carcinoma of left lung, stage 3 Status: Chronic (4) History of laryngeal cancer Status: Chronic (5) Pulmonary nodule, left Status: Chronic (6) Tobacco dependence in remission Status: Chronic (7) PEG (percutaneous endoscopic gastrostomy) status Status: Chronic History of Present Illness Date of Admission: 11/10/17 Chief Complaint: Chest pain, shortness of breath. The patient is a 61 year old M with past medical history as mentioned above presented to the emergency room because of chest pain and shortness of breath. This patient had left thoracentesis for left-sided pleural effusion this past Friday, November 07, 2017 and later on that date, he started having chest pain and shortness of breath. The chest pain is both on the anterior chest as well as left lateral chest, pressure-like pain, 6 out of 10 in severity, goes across the left lateral chest, associated with shortness of breath as well as productive cough with small amount of yellow to green sputum, aggravated by taking a deep breath, intermittent pain without relieving factors. He has been more short of breath since he had the thoracentesis which comes mainly on exertion but has been progressively increasing since Friday. He denied fever chills. He denies dizziness or lightheadedness. He denies syncope or presyncope. Also, he complained of right ear pain that has been going on for 3 months, dull aching pain, associated with mild decreasing hearing on the right ear, aggravated by moving his right jaw. On September 26, 2017, he underwent endoscopic endobronchial ultrasound with transbronchial needle aspiration and endobronchial biopsies for left hilar mass and histopathology of that mass revealed moderately differentiated non-small cell carcinoma in favor of squamous cell carcinoma. He is supposed to start chemotherapy tomorrow. In the emergency department, his vital signs were stable and his pulse ox was normal on room air. His routine blood work is remarkable for hemoglobin of 8.6 g/dL, otherwise normal. EKG revealed normal sinus rhythm, normal CT interval, normal QRS, normal QTC and no acute ischemic changes. His troponin is negative. Chest x-ray revealed worsening left-sided pleural effusion. He is being admitted for chest pain, worsening left sided pleural effusion, shortness of breath and right ear pain with questionable tympanic membrane rupture. Past Medical History Past Medical History (Chronic Problems): Chronic Problems (Last Reviewed 11/06/17 @ 15:29 by Lotus Lemos, RN) Chronic anemia (Chronic) Dysphagia (Chronic) Non-small cell carcinoma of left lung, stage 3 (Chronic) History of laryngeal cancer (Chronic) Pulmonary nodule, left (Chronic) Tobacco dependence in remission (Chronic) PEG (percutaneous endoscopic gastrostomy) status (Chronic) Medical History: Medical History (Last Reviewed 11/06/17 @ 15:29 by Lotus Lemos, RN) Anemia D64.9 Chicken pox B01.9 Dysphagia R13.10 Hypernatremia E87.0 Hyponatremia E87.1 Hypothyroidism E03.9 LEFT WRIST SURGERY Laryngeal cancer C32.9 Lymphadenitis I88.9 Measles B05.9 Mumps B26.9 Status post insertion of percutaneous endoscopic gastrostomy (PEG) tube Z93.1 Allergies Iodinated Contrast- Oral and IV Dye [CT] Allergy (Mild, Verified 11/10/17 09:26) Rash Home Medications: Ambulatory Orders Medication Instructions Recorded Albuterol IH (ProAir) [Proair Hfa] 2 puff INHALATION Q6H PRN 11/10/17 Dexamethasone [Decadron] 1 tablet PO DAILY@0800 11/10/17 Levothyroxine [Synthroid] 1 tablet PO DAILY 11/10/17 Lorazepam [Ativan] 1 tablet PO BID 11/10/17 Oxycodone HCl/Acetaminophen 1 tablet PO Q6H PRN 11/10/17 [Percocet 5-325] Surgical History: Surgical History (Last Reviewed 11/06/17 @ 15:29 by Lotus Lemos, RN) History of hernia repair Z98.890, Z87.19 Surgical History: herniorrhaphy, - - PEG tube placement. Psychiatric History: Anxiety Lives: With Family Smoking Status: Former smoker Alcohol: None Drugs: None - *Family History Paternal Family History: Family History (Last Reviewed 11/06/17 @ 15:29 by Lotus Lemos, RN) Father Heart disease History Items: Heart Disease - Maternal Family History: Family History (Last Reviewed 11/06/17 @ 15:29 by Lotus Lemos, RN) Father Heart disease History Items: No pertinent history Review of Systems Constitutional: Reports: Anorexia, Weakness. Denies: Chills, Fever Eyes: Denies: Blurred vision, Double vision, Drainage, Redness HEENT: Reports: Ear Pain - Right ear pain., Hearing Changes. Denies: Difficulty Hearing, Eye Pain, Nasal Congestion, Sore Throat Cardiovascular: Reports: Chest Pain. Denies: Edema, Heaviness, Light Headedness , Orthopnea, Paroxysmal Noc. Dyspnea, Syncope Respiratory: Reports: Shortness of Breath, Shortness of breath upon exertion. Denies: Cough, Hemoptysis, Pleuritic Pain, Sputum production, Wheezing Gastrointestinal: Denies: Abdominal Pain, Constipation, Diarrhea, Nausea, Vomiting Genitourinary: Denies: Dysuria, Frequency, Hematuria Musculoskeletal: Denies: Arm Pain, Back Pain, Foot Pain Skin: Denies: Dryness, Rash Neurological: Denies: Balance problems, Change in Speech, Confusion, Focal weakness, Headaches, Incoordination, Numbness Psychiatric: Reports: Anxiety. Denies: Depression Endocrine: Denies: Change in Body Habitus, Polydipsia VTE Information - Inpt Only VTE Present on Admission: No VTE Mechan Device Prophylaxis: SCD's VTE Pharm Prophylaxis ordered?: No - Physical Exam General: Alert, Oriented x3, Cooperative, No apparent distress HEENT: Atraumatic, PERRLA, EOMI, Normocephalic, - - Tympanic membrane on the right: 2 red spots, questionable perforated tympanic membrane. Oral: Moist Mucosa, No Gingival or Mucosal Lesions/ Ulcerations Neck: Supple, No JVD, Negative Carotid Bruits, Trachea Midline, Thyroid Normal Size and Texture Lungs: Clear to auscultation, No rhonchi, No wheeze, No rales, Diminished Cardiovascular: Regular rate, Regular Rhythm, Normal S1, Normal S2, PMI Normal Abdomen: Bowel Sounds Present, Soft, Non Tender, Non-Distended, No Hepato- splenomegaly, - - PEG tube in place. Extremities: No clubbing, No cyanosis, No edema Skin: No rashes, No breakdown Lymphatic: No Cervical, Supraclavicular, or Inguinal Adenopathy Neurological: Cranial nerves II-XII grossly intact, Motor Exam 5/5 strength throughout Psych/Mental Status: Normal Affect, Appropriate, Alert and oriented to time, place, person, mood and affect Vital Signs Temp Pulse Resp BP Pulse Ox 98.8 F 90 25 H 102/55 L 95 11/10/17 09:24 11/10/17 12:20 11/10/17 12:20 11/10/17 12:20 11/10/17 12:20 Oxygen Delivery Method Room Air Weight: 160 lb Body Mass Index (BMI) 25.0 Laboratory Tests Past 24 Hrs 11/10/17 11/10/17 11/10/17 10:53 10:53 10:53 WBC 9.4 RBC 2.95 L Hgb 8.6 L Hct 27.3 L MCV 92.5 MCH 29.2 MCHC 31.5 L RDW 15.3 H RDW Differential 52.5 H Plt Count 358 MPV 8.1 Immature Gran % (Auto) 0.200 Neut % (Auto) 88.1 H Lymph % (Auto) 7.9 L [place] % (Auto) 3.1 Eos % (Auto) 0.5 Baso % (Auto) 0.2 Absolute Neuts (auto) 8.3 H Absolute Lymphs (auto) 0.74 L Total Counted Not Reportable Platelet Estimate ADEQUATE Polychromasia 1+ Hypochromasia 2+ Sodium 136 Potassium 4.1 Chloride 95 L Carbon Dioxide 34.0 H Anion Gap 7 BUN 28 H Creatinine 0.94 Estim Creat Clear Calc 77.16 Est GFR (MDRD) Af Amer 105 Est GFR (MDRD) Non-Af 87 BUN/Creatinine Ratio 29.8 H Glucose 137 H Calcium 9.3 Troponin I 0.018 B-Natriuretic Peptide 32.0 Clinical Impression(s) from Imaging Studies Chest X-Ray 11/10/17 09:38 IMPRESSION: Progressive pleural parenchymal changes at the left lung base with volume loss in the left hemithorax. Electronically Signed: Yosef Blevins MD at 10:26 EDT Tel [phone], Service support , Assessment/Plan This is a 61 years old male patient presented to the emergency room because of anterior chest pain, left lateral chest pain and shortness of breath, found to have worsening left side pleural effusion in context of recent diagnosis of non- small cell lung cancer and also complains of right ear pain with change in hearing and questionable perforated right tympanic membrane. #1 worsening left pleural effusion: Status post recent left thoracentesis on November 07, 2017, 530 mL of blood-tinged fluid was drained. Pleural fluid analysis reviewed, no pleural fluid protein, albumin or LDH performed. Chest x- ray from today reviewed, revealed worsening left sided pleural effusion. Vital signs are stable, pulse ox is maintained on room air. Plan: Admit to PCU, cardiac monitoring, serial cardiac enzymes, IV morphine as needed for pain, OxyIR as needed for pain, IV fluids, IV antiemetics, pulmonology consult, PT, PTT and INR, PT OT evaluation and treatment. #2 recent diagnosis of non-small cell lung cancer: Status post endoscopic endobronchial ultrasound with biopsies, biopsy revealed moderately differentiated non-small cell lung carcinoma, in favor of squamous cell carcinoma. The plan was to start him on chemotherapy today, now would be postponed. Plan as above. #3 chest pain: Seems to be atypical, it is on both anterior chest and left lateral chest. EKG revealed normal sinus rhythm, no acute ischemic changes. First troponin is negative. Plan: Cardiac monitoring, serial cardiac enzymes, repeat EKG tomorrow morning. #4 right ear pain/questionable perforated right tympanic membrane: This has been going on for 3 months. Right ear examination revealed 2 red spots on the tympanic membrane, questionable perforation. Plan for ENT consult. #5 acute on chronic anemia: It is normocytic anemia, likely because of anemia chronic disease secondary to cancer. Baseline hemoglobin has been fluctuating around 11-12 g/dL. Admission hemoglobin is 8.6 g/dL, it is the first time has been this low. At this time, no evidence of active bleeding. Pleural effusion could be hemorrhagic. At this time, noted indication for blood transfusion. Plan to repeat CBC tomorrow morning. #6 history of laryngeal cancer: Status post chemotherapy and radiation, in remission. #7 chronic dysphagia: Status post PEG tube placement, on tube feeds. #8 DVT prophylaxis: SCDs. This note was generated with [employer] dictation software. It may contain incorrect words, spelling, and punctuation that were not noted in checking the note before signing. Code Visit Inpatient E&M: 73675 Init Hosp L3
--- NOTE | 2017-11-10 13:43 | CASEMGMT ---
Social Work Note In to complete initial assessment as pt is to be admitted. Introduced self and role at [facility]. Pt presents with pleasant affect and is accompanied by his son, Elias. Pt reports to live alone in a one-story home with no entry steps. Denies access issues or use of DME. Pt is independent with ADLs. Confirms that his PCP is Dr. Sarmiento and he also sees Dr. Leigh, Dr. Robles and is scheduled to see Dr. Ruiz for radiation. Preferred pharmacy is [facility]. HCPOA is his son, Elias. Pt does not anticipate needs at discharge, but is aware that RN JONNA or SW is available if needs arise. Adrianne Lovell, HAZARD MITIGATION OFFICER, ABSTRACT WRITER
--- NOTE | 2017-11-10 14:10 | EKG12_ITS ---
Test Reason : Blood Pressure : / mmHG Vent. Rate : 094 BPM Atrial Rate : 094 BPM P-R Int : 122 ms QRS Dur : 086 ms QT Int : 328 ms P-R-T Axes : 069 061 052 degrees QTc Int : 410 ms Normal sinus rhythm Normal ECG When compared with ECG of 08-NOV-2016 09:54, No significant change was found Confirmed by JOHNNY FERNANDEZ, MIKEY ([id number]), order editor WILLIAM CARLSON ([id number]) on 11/11/2017 10:48:59 AM Referred By: KEVIN Confirmed By:MIKEY TURNER MD
--- NOTE | 2017-11-10 14:46 | CON.PCM_ITS ---
Problem List (1) Non-small cell carcinoma of left lung, stage 3 Status: Chronic (2) History of laryngeal cancer Status: Chronic (3) Pulmonary nodule, left Status: Chronic (4) Chronic anemia Status: Chronic (5) Dysphagia Status: Chronic (6) Tobacco dependence in remission Status: Chronic (7) PEG (percutaneous endoscopic gastrostomy) status Status: Chronic Reason for Consult Date of Consultation: 11/10/17 Reason for Consultation: worsening L pleural effusion, recent diagnosis lung CA History of Present Illness: The patient is a 61 year old M with a past medical history as below, last seen by Dr. Robles on 10/01/17 secondary to hilar mass s/p EBUS 09/26, diagnosis of non- small cell carcinoma, favor squamous cell, presented to the ED on 11/10/17 with complaints of progressive shortness of breath since Friday. The patient underwent a left-sided thoracentesis on Friday and has developed worsening shortness of breath and chest discomfort since then. There was approximately 530 mL of blood-tinged fluid drained. A chest x-ray was performed postprocedure and showed no pneumothorax. The patient's chest discomfort does worsen with deep inspiration and with exertion. He has tried using his albuterol inhaler with some improvement in his pain and breathing. The patient has an occasional productive cough of yellow sputum, was green a couple of days ago. Denies any epistaxis or hemoptysis. Denies any fever or chills. Also complains of inability to pass much food down his esophagus, has been losing weight. He has been having nausea and vomiting as well. The patient does have a PEG tube for nutrition. Complains of night sweats. Patient also has a history of laryngeal cancer status post chemoradiation in 2016 with subsequent dysphagia. Not on a modified diet. Significant past smoking history, quit in 2016. A CT of the chest was performed on September 16 that showed increased size in the left lower lobe lung nodule along with a new infrahilar mass, which appeared to cause compression/obstruction of the left lower lobe mainstem bronchus. However, the distal lung remained aerated indicating that the obstruction was not complete. Initial vitals BP 136/76, pulse 103, RR 20, 98.8?F, 97% on room air. Blood work revealed no leukocytosis, hemoglobin of 8.6, was 12.8 on September 23, 2017. Coags were normal. Chemistry remarkable for chloride of 95 and serum bicarb of 34. BUN was 28 and creatinine 0.94. Troponin and BNP were negative. EKG sinus rhythm with no acute changes. Chest x-ray showing progressive pleural parenchymal changes at the left lung base with volume loss in the left hemithorax. Right lung was clear. The patient was transitioned to the progressive care unit for further evaluation and management, with plans for probable Pleurx catheter insertion. Past Medical History Past Medical History (Chronic Problems): Chronic Problems (Last Reviewed 11/06/17 @ 15:29 by Lotus Lemos, RN) Chronic anemia (Chronic) Dysphagia (Chronic) Non-small cell carcinoma of left lung, stage 3 (Chronic) History of laryngeal cancer (Chronic) Pulmonary nodule, left (Chronic) Tobacco dependence in remission (Chronic) PEG (percutaneous endoscopic gastrostomy) status (Chronic) Medical History: Medical History (Last Reviewed 11/06/17 @ 15:29 by Lotus Lemos, MAIRO) Anemia D64.9 Chicken pox B01.9 Dysphagia R13.10 Hypernatremia E87.0 Hyponatremia E87.1 Hypothyroidism E03.9 LEFT WRIST SURGERY Laryngeal cancer C32.9 Lymphadenitis I88.9 Measles B05.9 Mumps B26.9 Status post insertion of percutaneous endoscopic gastrostomy (PEG) tube Z93.1 Allergies Iodinated Contrast- Oral and IV Dye [CT] Allergy (Mild, Verified 11/10/17 09:26) Rash Home Medications: Ambulatory Orders Medication Instructions Recorded Albuterol IH (ProAir) [Proair Hfa] 2 puff INHALATION Q6H PRN 11/10/17 Dexamethasone [Decadron] 1 tablet PO DAILY@0800 11/10/17 Levothyroxine [Synthroid] 1 tablet PO DAILY 11/10/17 Lorazepam [Ativan] 1 tablet PO BID PRN 11/10/17 Oxycodone HCl/Acetaminophen 1 tablet PO Q6H PRN 11/10/17 [Percocet 5-325] Surgical History: Surgical History (Last Reviewed 11/06/17 @ 15:29 by Lotus Lemos, MARIO) History of hernia repair Z98.890, Z87.19 Surgical History: herniorrhaphy, - - PEG tube placement. Psychiatric History: Anxiety Lives: With Family Smoking Status: Former smoker Tobacco Use: Cigarettes - 12-ygdf-odch history Alcohol: None Drugs: None - *Family History Paternal Family History: Family History (Last Reviewed 11/06/17 @ 15:29 by Lotus Lemos RN) Father Heart disease History Items: Heart Disease - Maternal Family History: Family History (Last Reviewed 11/06/17 @ 15:29 by Lotus Lemos RN) Father Heart disease History Items: No pertinent history Review of Systems Constitutional: Reports: Anorexia, Night Sweats, Weakness, Weight Change, Fatigue. Denies: Chills, Fever Eyes: Denies: Vision Change HEENT: Reports: Difficulty Swallowing, - - Throat feels tight. Denies: Head Aches, Nasal bleeding, Nasal Congestion, Post Nasal Drip, Sinus Congestion, Sinus Drainage, Sore Throat Cardiovascular: Reports: Chest Pain, Chest Tightness, Orthopnea. Denies: Edema , Light Headedness, Palpitations, Paroxysmal Noc. Dyspnea, Syncope Respiratory: Reports: Cough, Pleuritic Pain, Shortness of breath upon exertion, Sputum production. Denies: Hemoptysis, Wheezing Gastrointestinal: Reports: Nausea, Vomiting. Denies: Abdominal Pain, Constipation, Diarrhea, Dyspepsia, Hematemesis, Hematochezia, Melena Genitourinary: Denies: Dysuria, Frequency, Hematuria, Nocturia, Retention Musculoskeletal: Denies: Leg Pain, Neck Pain Skin: Denies: Rash, Wounds Neurological: Reports: Difficulty swallowing. Denies: Balance problems, Change in Speech, Confusion, Focal weakness, Numbness, Tingling, Tremor, Seizures Psychiatric: Reports: Anxiety, Depression. Denies: Suicidal Ideations Endocrine: Reports: Change in Body Habitus - Losing weight, inability to eat Hematologic/ Lymphatic: Reports: Anemia, Easy Bruising, Easy Bleeding. Denies: Adenopathy, Hx of blood clot Subjective: The patient was seen and examined. Denies any shortness of breath per se, however feels like he just cannot take a deep breath. He is maintaining appropriate saturations on room air. Denies any fever or chills. No current cough or sputum production. His chest pain is waxing and waning, typically increases with activity or deep breath. Objective: Clinical Impression(s) from Imaging Studies Chest X-Ray 11/10/17 09:38 IMPRESSION: Progressive pleural parenchymal changes at the left lung base with volume loss in the left hemithorax. Electronically Signed: Yosef Blevins MD at 10:26 EDT Tel [phone], Service support , - Physical Exam General: Alert, Oriented x3, Cooperative, No apparent distress, - - Cachectic, appears older than stated age HEENT: Atraumatic, PERRLA, Normocephalic Oral: No Gingival or Mucosal Lesions/ Ulcerations, Dry Mucosa Neck: Supple, No Nodes, No Nuchal Rigidity, Trachea Midline, - - no overt masses palpated but evidence of radiation w/areas of firmness Lungs: No rhonchi, - - Diminished on the left with some dullness to percussion, no rhonchi wheezes or rales. Right lung clear. Cardiovascular: Regular rate, Regular Rhythm, Normal S1, Normal S2, No murmurs, No rub noted, No Gallop Abdomen: Bowel Sounds Present, Soft, Non Tender, Non-Distended Extremities: No clubbing, No cyanosis, No edema Skin: No rashes, No breakdown Musculoskeletal: No Tenderness to Palpation of Joints or Extremities, Arthritic Changes, Cachexia, Muscle Wasting Lymphatic: No Cervical, Supraclavicular, or Inguinal Adenopathy Neurological: Cranial nerves II-XII grossly intact, Neuro grossly intact, Motor Exam 5/5 strength throughout Psych/Mental Status: Alert and oriented to time, place, person, mood and affect Vital Signs Temp Pulse Resp BP Pulse Ox 98.2 F 98 18 104/52 L 96 11/10/17 14:05 11/10/17 14:05 11/10/17 14:05 11/10/17 14:05 11/10/17 14:05 Oxygen Delivery Method Room Air Weight: 121 lb 0.54 oz Body Mass Index (BMI) 18.9 Laboratory Tests Past 24 Hrs 11/10/17 11/10/17 14:15 14:25 PT Pending INR Pending APTT Pending Troponin I Pending Assessment/Plan RECOMMENDATIONS 1. Oxygen supplementation to keep saturations greater than 90% 2. Encourage incentive spirometer 3. Increase activity as tolerated 4. Continue PRN aerosols 5. Consult surgery, plan for Pleurx catheter placement 6. Continue nutrition through PEG tube IMPRESSIONS 1. Newly diagnosed left lung cancer, hilar mass Follows with Dr. Robles, had an endobronchial ultrasound guided biopsy in September 2017 with diagnosis of non-small cell lung cancer. Patient with recent thoracentesis on 11/06 and removal of approximate 530 mL of bloody fluid. Current imaging showing rapid reaccumulation of the fluid, highly suspicious for recurrent malignant effusion. Would recommend placement of Pleurx cath to facilitate drainage. The indications, risks, and benefits were reviewed with the patient and he is agreeable to proceed with procedure. Coags were normal. Consult placed to surgery. 2. Chronic anemia/dysphagia/history of laryngeal cancer status post radiation/ tobacco dependence in remission Complicates care, management, recovery, and prognosis. May benefit from a swallowing evaluation. Encouraged ongoing smoking cessation. Check a CBC in the morning as hemoglobin is significantly lower than last month. No evidence of acute bleed at this time. Thank you for the opportunity to participate in this patient's care, please do not hesitate contact us with any further questions or concerns. This note was generated with [employer] dictation software. It may contain incorrect words, spelling, and punctuation that were not noted in checking the note before signing.
[2017-11-10 15:01] LABS: International Normalized Ratio 1.1; Prothrombin Time (Protime)PT. 14.6 SECONDS (11.7-14.9)
[2017-11-10 15:02] LABS: Partial Thromboplast Time 33.7 Seconds (24.1-36.2)
[2017-11-10 15:26] LABS: Mucous, Urine 0 SEEN /hpf (<or=2+); Red Blood Cells-Urine 0 SEEN /hpf (0-5); Squamous Epithelial Cells - UA 0 SEEN /hpf (0-5); White Blood Cells 0 SEEN /hpf (0-5)
[2017-11-10 15:30] LABS: Color, Urine Yellow (Yellow); Glucose, Dipstick Normal (Normal); Ketone-Dipstick Negative (Negative); Leukocyte Esterase-Dipstick Negative /ul (Negative); Nitrite-Dipstick Negative (Negative); Occult Blood-Urine Negative /ul (Negative); Protein-Dipstick 15 mg/dl (Negative); Urine Bilirubin Dipstick Negative (Negative); Urine Clarity Clear (Clear); Urine Urobilinogen Normal (Normal)
[2017-11-10] MEDS: 0.9% Normal Saline 1,000 ML 75 ML IV (15:32)
[2017-11-10] MEDS: 0.9% NaCl Peripheral Flush Adult/Peds IV ×2 (15:34→18:59)
[2017-11-10 15:55] LABS: Bacteria RARE /hpf (None Seen)
[2017-11-10] MEDS: Morphine 2 MG/ML Syringe 1 MG IV (18:57)
--- NOTE | 2017-11-10 19:00 | PCM.PN.BLA ---
Progress Note Asked to see the patient at the request of Dr. Menon for an abnormal ear drum 61 yo white male well known to me with a previous diagnosis of laryngeal carcinoma. He is s/p chemoradiation therapy for this. He recently was diagnosed with lung CA. He was admitted for increasing shortness of breath. He will be undergoing a pleural catheter placement tomorrow for his pleural effusion and is slated to start chemotherapy for his lung carcinoma. He has been seeing an oral surgeon for a left mandibular micah spicule. He had addressed by oral surgery as it was bothering his tongue. The area of the mandible has not healed. He as been having some right ear pain as well. Recent PET scan did not reveal uptake in the larynx or mandible. PE: awake alert nad left TM is normal Right TM is normal. He has small broken vessel just posterior to the TM on the EAC skin. This is likely from coughing (or trauma which the patient denies). Nose- no bleeding lesions M/op- exposed bone on the right lingual side of the mandible (1 x 3 cm). Neck no adenopathy A: Referred otalgia secondary to non healing mandible ruptured vessel of the right ear canal skin likely secondary to coughing P: The patient should proceed with all planned procedures and chemotherapy. The ruptured vessel will heal without intervention.
--- NOTE | 2017-11-10 19:18 | PCM.CONS.GEN ---
Reason for Consult Date of Consultation: 11/10/17 History of Present Illness: The patient is a 61 year old M with a recently diagnosed left lung cancer. He has a left malignant pleural effusion. He had thoracentesis of this left pleural fluid performed on Friday. He is noted increasing shortness of breath. Chest x-ray today demonstrates significant reaccumulation of the left pleural fluid now about half the lung field. I was contacted for Pleurx catheter placement. Past Medical History Past Medical History (Chronic Problems): Chronic Problems (Last Reviewed 11/06/17 @ 15:29 by Lotus Lemos, RN) Chronic anemia (Chronic) Dysphagia (Chronic) Non-small cell carcinoma of left lung, stage 3 (Chronic) History of laryngeal cancer (Chronic) Pulmonary nodule, left (Chronic) Tobacco dependence in remission (Chronic) PEG (percutaneous endoscopic gastrostomy) status (Chronic) Medical History: Medical History (Last Reviewed 11/06/17 @ 15:29 by Lotus Lemos, RN) Anemia D64.9 Chicken pox B01.9 Dysphagia R13.10 Hypernatremia E87.0 Hyponatremia E87.1 Hypothyroidism E03.9 LEFT WRIST SURGERY Laryngeal cancer C32.9 Lymphadenitis I88.9 Measles B05.9 Mumps B26.9 Status post insertion of percutaneous endoscopic gastrostomy (PEG) tube Z93.1 Allergies Iodinated Contrast- Oral and IV Dye [CT] Allergy (Mild, Verified 11/10/17 09:26) Rash Home Medications: Ambulatory Orders Medication Instructions Recorded Albuterol IH (ProAir) [Proair Hfa] 2 puff INHALATION Q6H PRN 11/10/17 Dexamethasone [Decadron] 1 tablet PO DAILY@0800 11/10/17 Levothyroxine [Synthroid] 1 tablet PO DAILY 11/10/17 Lorazepam [Ativan] 1 tablet PO BID PRN 11/10/17 Oxycodone HCl/Acetaminophen 1 tablet PO Q6H PRN 11/10/17 [Percocet 5-325] Surgical History: Surgical History (Last Reviewed 11/06/17 @ 15:29 by Lotus Lemos, MARIO) History of hernia repair Z98.890, Z87.19 Surgical History: herniorrhaphy, - - PEG tube placement. Psychiatric History: Anxiety Lives: With Family Smoking Status: Former smoker Tobacco Use: Cigarettes - 69-lzek-icpd history Alcohol: None Drugs: None - *Family History Paternal Family History: Family History (Last Reviewed 11/06/17 @ 15:29 by Lotus Lemos RN) Father Heart disease History Items: Heart Disease - Maternal Family History: Family History (Last Reviewed 11/06/17 @ 15:29 by Lotus Lemos RN) Father Heart disease History Items: No pertinent history Review of Systems Constitutional: Reports: Anorexia, Malaise, Weakness. Denies: Chills, Fever, Weight Change HEENT: Reports: - - mouth pain on the right side of his mouth Cardiovascular: Denies: Chest Pain, Palpitations Respiratory: Reports: Cough. Denies: Shortness of breath at rest, Sputum production Gastrointestinal: Denies: Abdominal Pain, Nausea, Vomiting Genitourinary: Denies: Dysuria Musculoskeletal: Denies: Joint Pain, Joint Tenderness Skin: Denies: Rash, Wounds Neurological: Denies: Numbness, Tingling, Focal weakness Psychiatric: Denies: Anxiety, Depression, Homicidal Ideations, Suicidal Ideations Hematologic/ Lymphatic: Denies: Easy Bruising, Easy Bleeding - Physical Exam General: Alert, Oriented x3, Cooperative HEENT: - Oral: Ulcerations Present - with visible bone in the right lower jaw Lungs: Diminished - left to mid base with dullness to percussion on the left hemithorax bottom half consistent with recurring effusion Cardiovascular: Tachycardic Abdomen: Bowel Sounds Present, Soft, Non Tender Vital Signs Temp Pulse Resp BP Pulse Ox 99.5 F H 97 16 112/50 L 94 11/10/17 16:45 11/10/17 16:45 11/10/17 16:45 11/10/17 16:45 11/10/17 16:45 Oxygen Delivery Method Room Air Weight: 54.9 kg Body Mass Index (BMI) 18.9 Intake and Output for Last 24 Hours 11/08/17 11/09/17 11/10/17 23:59 23:59 23:59 Intake Total 243 / 243 Balance 243 / 243 Laboratory Tests Past 24 Hrs 11/10/17 11/10/17 11/10/17 13:15 14:15 14:25 PT 14.6 INR 1.1 APTT 33.7 Troponin I 0.016 Urine Color Yellow Urine Clarity Clear Urine pH 7.0 Ur Specific [place] 1.010 Urine Protein 15 H Urine Glucose (UA) Normal Urine Ketones Negative Urine Occult Blood Negative Urine Nitrite Negative Urine Bilirubin Negative Urine Urobilinogen Normal Ur Leukocyte Esterase Negative Urine RBC 0 SEEN Urine WBC 0 SEEN Ur Squamous Epith Cells 0 SEEN Urine Bacteria RARE Urine Mucus 0 SEEN 11/10/17 17:10 PT INR APTT Troponin I < 0.015 Urine Color Urine Clarity Urine pH Ur Specific [place] Urine Protein Urine Glucose (UA) Urine Ketones Urine Occult Blood Urine Nitrite Urine Bilirubin Urine Urobilinogen Ur Leukocyte Esterase Urine RBC Urine WBC Ur Squamous Epith Cells Urine Bacteria Urine Mucus Assessment/Plan recurring left pleural effusion-need for tunneled pleural catheter I plan to perform a left tunneled thoracic catheter/Pleurx catheter. The patient understands the risks, benefits, possible complications and alternatives. The patient consents to the procedure. We'll make the patient nothing by mouth. We'll hold Lovenox tomorrow. We will plan for 2 g of Ancef on-call to the operating suite.
[2017-11-10] MEDS: LORazepam 0.5 MG Tablet PO (21:57)
[2017-11-10] MEDS: oxyCODONE 5 MG Tablet PO (21:58)
[2017-11-11] VITALS (45 sets, daily range): BP systolic 90–118; BP diastolic 53–70; PULSE 78–172; RESP 13–26; TEMP 36.7–37.9; O2SAT 90–100; BMI 18.9
--- NOTE | 2017-11-11 02:13 | NURSING ---
Patient's tele monitor showing heart rate 150's. Patient resting in bed with eyes closed. Tele monitor shows heart rate back in 80's-90's.
[2017-11-11] MEDS: Morphine 2 MG/ML Syringe 1 MG IV ×3 (04:01→18:10)
[2017-11-11] MEDS: 0.9% NaCl Peripheral Flush Adult/Peds IV ×4 (04:01→23:27)
[2017-11-11 05:00] LABS: Anion Gap 8 (5-15); BUN 23 mg/dL (7-18); Calcium,Total 8.8 mg/dL (8.5-10.1); Chloride 99 mmol/L (98-107); Creatinine, Serum 0.74 mg/dL (0.70-1.30); EST Glomerular Filtration Rate 114 mL/min (>60); Est Glom Filt Rate - Afr Amer 137 mL/min (>60); Glucose 96 mg/dL (74-106); Potassium 4.5 mmol/L (3.5-5.1); Sodium Level 138 mmol/L (136-145)
[2017-11-11 05:41] LABS: Absolute Lymphocyte Count 0.33 X10^3/ul (0.83-4.51); Absolute Neutrophil Count 6.4 X10^3/uL (2.0-7.7); Basophil# 0.02 X10^3/uL; Basophil% 0.3 % (0-1); Eosinophil# 0.14 X10^3/uL; Eosinophils% 1.8 % (0-5); Hematocrit 26.2 % (40-54); Hemoglobin 8.1 g/dl (13.0-16.5); Lymphocyte # 0.33 X10^3/ul (4.0); Lymphocyte % 4.2 % (19-41); Mean Corp Hgb Conc 30.9 g/gl (32-36); Mean Corpuscular Hgb 29.3 pg (27.0-32.0); Mean Corpuscular Volume 94.9 fL (80-94); Mean Platelet Vol. 8.4 fl (6.2-12.0); Monocyte# 0.92 X10^3/uL; Monocyte% 11.7 % (0-10); Neutrophil # 6.44 X10^3/uL (2.7-7.7); Neutrophil % 81.6 % (47-70); Platelet Count 436 K/mm3 (150-450); RBC Distribution Width CV 15.3 % (11.6-14.6); RBC Distribution Width SD 50.4 fl (35.1-43.9); Red Blood Count 2.76 M/mm3 (4.6-6.2); White Blood Count 7.9 K/mm3 (4.4-11.0)
--- NOTE | 2017-11-11 05:55 | EKG12_ITS ---
Test Reason : AM EKG Blood Pressure : / mmHG Vent. Rate : 103 BPM Atrial Rate : 103 BPM P-R Int : 120 ms QRS Dur : 080 ms QT Int : 312 ms P-R-T Axes : 078 065 054 degrees QTc Int : 408 ms Sinus tachycardia Otherwise normal ECG When compared with ECG of 10-NOV-2017 14:19, MANUAL COMPARISON REQUIRED, DATA IS UNCONFIRMED Confirmed by JOHNNY FERNANDEZ, MIKEY ([id number]), news video editor WILLIAM CARLSON ([id number]) on 11/14/2017 9:48:11 AM Referred By: ISIDRO Confirmed By:MIKEY TURNER MD
[2017-11-11 05:57] LABS: Differential Indicated SCAN CRITERIA MET; POSITIVE COUNT NO; POSITIVE DIFFERENTIAL YES; POSITIVE MORPHOLOGY NO
[2017-11-11 06:26] LABS: Differential Comment SCANNED
--- NOTE | 2017-11-11 07:38 | NURSING ---
now in room assessing patient
--- NOTE | 2017-11-11 08:11 | PCM.PROGNOTE ---
Subjective: Chief complaint: Follow-up after admission for worsening left-sided pleural effusion, chest pain, right ear pain, acute on chronic anemia and overnight, he developed cardiac arrhythmia with heart rates up to 160 which seemed to be in sinus tachycardia. Patient seen and examined. He is still complaining of anterior chest pain described as chest pressure. Shortness of breath slightly improved and he was able to sleep last night. Nursing staff reported that overnight, his heart rate has been fast at occasions up to 160 bpm. It seems to be SVT and it was short-term and he could not get an EKG when he had those arrhythmias. At this time, he is in sinus rhythm, heart rate stable and EKG revealed normal sinus rhythm without acute ischemic changes or cardiac arrhythmias. He did mention that he has intermittent symptoms of palpitation that he feels does in his head. He denied dizziness, lightheadedness, syncope or presyncope. At this time, his vital signs are stable. - Physical Exam General: Alert, Oriented x3, Cooperative, No apparent distress HEENT: Atraumatic, PERRLA, EOMI Oral: Moist Mucosa, No Gingival or Mucosal Lesions/ Ulcerations Neck: Supple, No JVD, Negative Carotid Bruits, Trachea Midline, Thyroid Normal Size and Texture Lungs: No wheeze, No rales, Diminished, Rhonchi, - - Markedly decreased breath sounds on the left base with the percussion note, decreased breath sounds bilaterally. Cardiovascular: Regular rate, Regular Rhythm, Normal S1, Normal S2, PMI Normal Abdomen: Bowel Sounds Present, Soft, Non Tender, Non-Distended, No Hepato-splenomegaly Extremities: No clubbing, No cyanosis, No edema Skin: No rashes, No breakdown Lymphatic: No Cervical, Supraclavicular, or Inguinal Adenopathy Neurological: Cranial nerves II-XII grossly intact, Motor Exam 5/5 strength throughout Psych/Mental Status: Normal Affect, Appropriate, Alert and oriented to time, place, person, mood and affect Vital Signs Temp Pulse Resp BP Pulse Ox 98.8 F 106 H 18 114/55 L 90 11/11/17 04:00 11/11/17 06:54 11/11/17 04:00 11/11/17 04:00 11/11/17 07:55 Oxygen Delivery Method Room Air Weight: 121 lb 0.54 oz Body Mass Index (BMI) 18.9 Intake and Output for Last 24 Hours 11/09/17 11/10/17 11/11/17 23:59 23:59 23:59 Intake Total 243 / 243 1833 / 1833 Output Total 600 / 600 Balance 243 / 243 1233 / 1233 Laboratory Tests Past 24 Hrs 11/10/17 11/10/17 11/10/17 13:15 14:15 14:25 WBC RBC Hgb Hct MCV MCH MCHC RDW RDW Differential Plt Count MPV Immature Gran % (Auto) Neut % (Auto) Lymph % (Auto) [place] % (Auto) Eos % (Auto) Baso % (Auto) Absolute Neuts (auto) Absolute Lymphs (auto) Total Counted Differential Comment PT 14.6 INR 1.1 APTT 33.7 Sodium Potassium Chloride Carbon Dioxide Anion Gap BUN Creatinine Estim Creat Clear Calc Est GFR (MDRD) Af Amer Est GFR (MDRD) Non-Af BUN/Creatinine Ratio Glucose Calcium Magnesium Troponin I 0.016 Urine Color Yellow Urine Clarity Clear Urine pH 7.0 Ur Specific [place] 1.010 Urine Protein 15 H Urine Glucose (UA) Normal Urine Ketones Negative Urine Occult Blood Negative Urine Nitrite Negative Urine Bilirubin Negative Urine Urobilinogen Normal Ur Leukocyte Esterase Negative Urine RBC 0 SEEN Urine WBC 0 SEEN Ur Squamous Epith Cells 0 SEEN Urine Bacteria RARE Urine Mucus 0 SEEN 11/10/17 11/11/17 11/11/17 17:10 04:20 04:20 WBC 7.9 RBC 2.76 L Hgb 8.1 L Hct 26.2 L MCV 94.9 H MCH 29.3 MCHC 30.9 L RDW 15.3 H RDW Differential 50.4 H Plt Count 436 MPV 8.4 Immature Gran % (Auto) 0.400 Neut % (Auto) 81.6 H Lymph % (Auto) 4.2 L [place] % (Auto) 11.7 H Eos % (Auto) 1.8 Baso % (Auto) 0.3 Absolute Neuts (auto) 6.4 Absolute Lymphs (auto) 0.33 L Total Counted Not Reportable Differential Comment SCANNED PT INR APTT Sodium 138 Potassium 4.5 Chloride 99 Carbon Dioxide 31.0 Anion Gap 8 BUN 23 H Creatinine 0.74 Estim Creat Clear Calc 81.40 Est GFR (MDRD) Af Amer 137 Est GFR (MDRD) Non-Af 114 BUN/Creatinine Ratio 31.0 H Glucose 96 Calcium 8.8 Magnesium Troponin I < 0.015 Urine Color Urine Clarity Urine pH Ur Specific [place] Urine Protein Urine Glucose (UA) Urine Ketones Urine Occult Blood Urine Nitrite Urine Bilirubin Urine Urobilinogen Ur Leukocyte Esterase Urine RBC Urine WBC Ur Squamous Epith Cells Urine Bacteria Urine Mucus 11/11/17 04:50 WBC RBC Hgb Hct MCV MCH MCHC RDW RDW Differential Plt Count MPV Immature Gran % (Auto) Neut % (Auto) Lymph % (Auto) [place] % (Auto) Eos % (Auto) Baso % (Auto) Absolute Neuts (auto) Absolute Lymphs (auto) Total Counted Differential Comment PT INR APTT Sodium Potassium Chloride Carbon Dioxide Anion Gap BUN Creatinine Estim Creat Clear Calc Est GFR (MDRD) Af Amer Est GFR (MDRD) Non-Af BUN/Creatinine Ratio Glucose Calcium Magnesium 2.0 Troponin I Urine Color Urine Clarity Urine pH Ur Specific [place] Urine Protein Urine Glucose (UA) Urine Ketones Urine Occult Blood Urine Nitrite Urine Bilirubin Urine Urobilinogen Ur Leukocyte Esterase Urine RBC Urine WBC Ur Squamous Epith Cells Urine Bacteria Urine Mucus Medical Necessity - Tobacco Use Smoking Status: Former smoker Tobacco Use: Cigarettes - [id number] history Assessment/Plan This is a 61 years old male patient presented to the emergency room because of anterior chest pain, left lateral chest pain and shortness of breath, found to have worsening left side pleural effusion in context of recent diagnosis of non-small cell lung cancer and also complains of right ear pain with change in hearing. Overnight, he developed cardiac arrhythmia seems to be sinus tachycardia with questionable SVT. #1 worsening left pleural effusion: Respiratory status remains stable, maintaining pulse ox on room air. Status post recent left thoracentesis on November 07, 2017, 530 mL of blood-tinged fluid was drained. Pleural fluid analysis reviewed, no pleural fluid protein, albumin or LDH performed. Pulmonology consulted as well as neurosurgery and plan is for placement of Pleurx catheter. #2 recent diagnosis of non-small cell lung cancer: Status post endoscopic endobronchial ultrasound with biopsies, biopsy revealed moderately differentiated non-small cell lung carcinoma, in favor of squamous cell carcinoma. The plan was to start him on chemotherapy today, now would be postponed. Plan as above. #3 chest pain: Patient still complaining of chest pressure. Repeat EKG today reveals no acute ischemic changes. Troponin is negative ?3. #4 cardiac arrhythmia: Has been intermittent, no EKG obtained during the abnormal rhythm because it is of short duration. Patient complained of intermittent palpitation. Repeat EKG this morning revealed normal sinus rhythm without evidence of arrhythmias. Serum sodium, potassium as well as magnesium are normal. TSH was normal 4 days ago. #5 right ear pain: According to ENT, this is due to referred otalgia secondary to nonhealing mandible. He does have a ruptured visit in the right ear canal which is attributed to coughing. This will heal without interventions according to ENT. #6 acute on chronic anemia: It is normocytic anemia, likely because of anemia chronic disease secondary to cancer. Baseline hemoglobin has been fluctuating around 11-12 g/dL. Admission hemoglobin is 8.1 g/dL, it is the first time has been this low. No indication for transfusion. Plan to transfuse if hemoglobin drops below 8 g/dL. 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 #8 chronic dysphagia: Status post PEG tube placement, on tube feeds. #9 DVT prophylaxis: SCDs. This note was generated with [employer] dictation software. It may contain incorrect words, spelling, and punctuation that were not noted in checking the note before signing. Code Visit Inpatient E&M: 27265 Subs Hosp L3
--- NOTE | 2017-11-11 08:19 | PN_ITS ---
Subjective: Chief complaint: Follow-up after admission for worsening left-sided pleural effusion, chest pain, right ear pain, acute on chronic anemia and overnight, he developed cardiac arrhythmia with heart rates up to 160 which seemed to be in sinus tachycardia. Patient seen and examined. He is still complaining of anterior chest pain described as chest pressure. Shortness of breath slightly improved and he was able to sleep last night. Nursing staff reported that overnight, his heart rate has been fast at occasions up to 160 bpm. It seems to be SVT and it was short-term and he could not get an EKG when he had those arrhythmias. At this time, he is in sinus rhythm, heart rate stable and EKG revealed normal sinus rhythm without acute ischemic changes or cardiac arrhythmias. He did mention that he has intermittent symptoms of palpitation that he feels does in his head. He denied dizziness, lightheadedness, syncope or presyncope. At this time, his vital signs are stable. - Physical Exam General: Alert, Oriented x3, Cooperative, No apparent distress HEENT: Atraumatic, PERRLA, EOMI Oral: Moist Mucosa, No Gingival or Mucosal Lesions/ Ulcerations Neck: Supple, No JVD, Negative Carotid Bruits, Trachea Midline, Thyroid Normal Size and Texture Lungs: No wheeze, No rales, Diminished, Rhonchi, - - Markedly decreased breath sounds on the left base with the percussion note, decreased breath sounds bilaterally. Cardiovascular: Regular rate, Regular Rhythm, Normal S1, Normal S2, PMI Normal Abdomen: Bowel Sounds Present, Soft, Non Tender, Non-Distended, No Hepato- splenomegaly Extremities: No clubbing, No cyanosis, No edema Skin: No rashes, No breakdown Lymphatic: No Cervical, Supraclavicular, or Inguinal Adenopathy Neurological: Cranial nerves II-XII grossly intact, Motor Exam 5/5 strength throughout Psych/Mental Status: Normal Affect, Appropriate, Alert and oriented to time, place, person, mood and affect Vital Signs Temp Pulse Resp BP Pulse Ox 98.8 F 106 H 18 114/55 L 90 11/11/17 04:00 11/11/17 06:54 11/11/17 04:00 11/11/17 04:00 11/11/17 07:55 Oxygen Delivery Method Room Air Weight: 121 lb 0.54 oz Body Mass Index (BMI) 18.9 Intake and Output for Last 24 Hours 11/09/17 11/10/17 11/11/17 23:59 23:59 23:59 Intake Total 243 / 243 1833 / 1833 Output Total 600 / 600 Balance 243 / 243 1233 / 1233 Laboratory Tests Past 24 Hrs 11/10/17 11/10/17 11/10/17 13:15 14:15 14:25 WBC RBC Hgb Hct MCV MCH MCHC RDW RDW Differential Plt Count MPV Immature Gran % (Auto) Neut % (Auto) Lymph % (Auto) [place] % (Auto) Eos % (Auto) Baso % (Auto) Absolute Neuts (auto) Absolute Lymphs (auto) Total Counted Differential Comment PT 14.6 INR 1.1 APTT 33.7 Sodium Potassium Chloride Carbon Dioxide Anion Gap BUN Creatinine Estim Creat Clear Calc Est GFR (MDRD) Af Amer Est GFR (MDRD) Non-Af BUN/Creatinine Ratio Glucose Calcium Magnesium Troponin I 0.016 Urine Color Yellow Urine Clarity Clear Urine pH 7.0 Ur Specific [place] 1.010 Urine Protein 15 H Urine Glucose (UA) Normal Urine Ketones Negative Urine Occult Blood Negative Urine Nitrite Negative Urine Bilirubin Negative Urine Urobilinogen Normal Ur Leukocyte Esterase Negative Urine RBC 0 SEEN Urine WBC 0 SEEN Ur Squamous Epith Cells 0 SEEN Urine Bacteria RARE Urine Mucus 0 SEEN 11/10/17 11/11/17 11/11/17 17:10 04:20 04:20 WBC 7.9 RBC 2.76 L Hgb 8.1 L Hct 26.2 L MCV 94.9 H MCH 29.3 MCHC 30.9 L RDW 15.3 H RDW Differential 50.4 H Plt Count 436 MPV 8.4 Immature Gran % (Auto) 0.400 Neut % (Auto) 81.6 H Lymph % (Auto) 4.2 L [place] % (Auto) 11.7 H Eos % (Auto) 1.8 Baso % (Auto) 0.3 Absolute Neuts (auto) 6.4 Absolute Lymphs (auto) 0.33 L Total Counted Not Reportable Differential Comment SCANNED PT INR APTT Sodium 138 Potassium 4.5 Chloride 99 Carbon Dioxide 31.0 Anion Gap 8 BUN 23 H Creatinine 0.74 Estim Creat Clear Calc 81.40 Est GFR (MDRD) Af Amer 137 Est GFR (MDRD) Non-Af 114 BUN/Creatinine Ratio 31.0 H Glucose 96 Calcium 8.8 Magnesium Troponin I < 0.015 Urine Color Urine Clarity Urine pH Ur Specific [place] Urine Protein Urine Glucose (UA) Urine Ketones Urine Occult Blood Urine Nitrite Urine Bilirubin Urine Urobilinogen Ur Leukocyte Esterase Urine RBC Urine WBC Ur Squamous Epith Cells Urine Bacteria Urine Mucus 11/11/17 04:50 WBC RBC Hgb Hct MCV MCH MCHC RDW RDW Differential Plt Count MPV Immature Gran % (Auto) Neut % (Auto) Lymph % (Auto) [place] % (Auto) Eos % (Auto) Baso % (Auto) Absolute Neuts (auto) Absolute Lymphs (auto) Total Counted Differential Comment PT INR APTT Sodium Potassium Chloride Carbon Dioxide Anion Gap BUN Creatinine Estim Creat Clear Calc Est GFR (MDRD) Af Amer Est GFR (MDRD) Non-Af BUN/Creatinine Ratio Glucose Calcium Magnesium 2.0 Troponin I Urine Color Urine Clarity Urine pH Ur Specific [place] Urine Protein Urine Glucose (UA) Urine Ketones Urine Occult Blood Urine Nitrite Urine Bilirubin Urine Urobilinogen Ur Leukocyte Esterase Urine RBC Urine WBC Ur Squamous Epith Cells Urine Bacteria Urine Mucus Medical Necessity - Tobacco Use Smoking Status: Former smoker Tobacco Use: Cigarettes - [id number] history Assessment/Plan This is a 61 years old male patient presented to the emergency room because of anterior chest pain, left lateral chest pain and shortness of breath, found to have worsening left side pleural effusion in context of recent diagnosis of non- small cell lung cancer and also complains of right ear pain with change in hearing. Overnight, he developed cardiac arrhythmia seems to be sinus tachycardia with questionable SVT. #1 worsening left pleural effusion: Respiratory status remains stable, maintaining pulse ox on room air. Status post recent left thoracentesis on November 07, 2017, 530 mL of blood-tinged fluid was drained. Pleural fluid analysis reviewed, no pleural fluid protein, albumin or LDH performed. Pulmonology consulted as well as neurosurgery and plan is for placement of Pleurx catheter. #2 recent diagnosis of non-small cell lung cancer: Status post endoscopic endobronchial ultrasound with biopsies, biopsy revealed moderately differentiated non-small cell lung carcinoma, in favor of squamous cell carcinoma. The plan was to start him on chemotherapy today, now would be postponed. Plan as above. #3 chest pain: Patient still complaining of chest pressure. Repeat EKG today reveals no acute ischemic changes. Troponin is negative ?3. #4 cardiac arrhythmia: Has been intermittent, no EKG obtained during the abnormal rhythm because it is of short duration. Patient complained of intermittent palpitation. Repeat EKG this morning revealed normal sinus rhythm without evidence of arrhythmias. Serum sodium, potassium as well as magnesium are normal. TSH was normal 4 days ago. #5 right ear pain: According to ENT, this is due to referred otalgia secondary to nonhealing mandible. He does have a ruptured visit in the right ear canal which is attributed to coughing. This will heal without interventions according to ENT. #6 acute on chronic anemia: It is normocytic anemia, likely because of anemia chronic disease secondary to cancer. Baseline hemoglobin has been fluctuating around 11-12 g/dL. Admission hemoglobin is 8.1 g/dL, it is the first time has been this low. No indication for transfusion. Plan to transfuse if hemoglobin drops below 8 g/dL. 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 #8 chronic dysphagia: Status post PEG tube placement, on tube feeds. #9 DVT prophylaxis: SCDs. This note was generated with [employer] dictation software. It may contain incorrect words, spelling, and punctuation that were not noted in checking the note before signing. Code Visit Inpatient E&M: 18475 Subs Hosp L3
--- NOTE | 2017-11-11 08:24 | EKG12_ITS ---
Test Reason : RHYTHM Blood Pressure : / mmHG Vent. Rate : 091 BPM Atrial Rate : 340 BPM P-R Int : 000 ms QRS Dur : 102 ms QT Int : 336 ms P-R-T Axes : -67 069 055 degrees QTc Int : 413 ms Atrial flutter with variable A-V block Abnormal ECG When compared with ECG of 11-NOV-2017 08:40, MANUAL COMPARISON REQUIRED, DATA IS UNCONFIRMED Confirmed by JOHNNY FERNANDEZ, MIKEY ([id number]), news copy editor WILLIAM CARLSON ([id number]) on 11/14/2017 9:46:38 AM Referred By: KEVIN Confirmed By:MIKEY TURNER MD
--- NOTE | 2017-11-11 08:28 | NURSING ---
patient hr noted to be elevated again called for ekg abnormal sent to md notified md awaiting orders . states feels like someone pushing on chest midsternal states better when lying down
--- NOTE | 2017-11-11 08:32 | ECHOD_ITS ---
Reason For Study: AFIB/FLUTTER Procedure This was a 2D Doppler, Color Flow transthoracic echocardiogram. The study was technically difficult. Due to PT sitting supine for exam, off axis apical views due to bandages (unable to remove), no subcostal view due to PEG. Exam performed portable in patient room. Left Ventricle Normal LV size. Left ventricular systolic function is normal. The estimated ejection fraction is 55 %. Unable to assess diastolic dysfunction. No regional wall motion abnormalities noted. Right Ventricle Normal RV size. Normal systolic function. Atria Normal left atrium. Normal right atrium. No doppler evidence for ASD. Mitral Valve There is no mitral annular calcification. Normal mitral valve. Trivial mitral valve insufficiency. Tricuspid Valve Normal tricuspid valve. Trivial tricuspid valve insufficiency. Right ventricular systolic pressure estimated to be 31 mmHg. Aortic Valve Trisinus/trileaflet aortic valve. Mild diffuse aortic valve thickening. Pulmonic Valve The pulmonic valve is not well visualized. Trivial pulmonic valve insufficiency. Great Vessels Normal sized aortic root. Pericardium/Pleural No pericardial effusion. Echolucency c/w a pleural effusion. MMode/2D Measurements & Calculations LVIDd: 4.2 cm IVSd: 1.0 cm Ao root diam: 3.3 cm LVIDs: 2.5 cm LVPWd: 1.0 cm LA dimension: 2.9 cm RVDd: 3.3 cm FS: 40.5 % LAV(MOD-sp4): 47.4 ml LA A4 area: 18.2 cm2 RA A4 area: 16.2 cm2 Doppler Measurements & Calculations MV E max leigh ann: 79.1 cm/sec Ao V2 max: 110.2 cm/sec LV V1 max: 89.0 cm/sec MV A max leigh ann: 38.5 cm/sec Ao max P.9 mmHg LV V1 max P.2 mmHg MV E/A: 2.1 PA V2 max: 98.2 cm/sec TR max leigh ann: 263.0 cm/sec TR max P.7 mmHg Interpretation Summary The study was technically difficult. Left ventricular systolic function is normal. The estimated ejection fraction is 55 %. Trivial mitral valve insufficiency. Trivial tricuspid valve insufficiency. Mild diffuse aortic valve thickening. Trivial pulmonic valve insufficiency. Echolucency c/w a pleural effusion. Right ventricular systolic pressure estimated to be 31 mmHg. Unable to assess diastolic dysfunction. Ordering Physician: Nadege Menon Referring Physician: Vish Ruiz Performed By: January Storey RDCS, RVT
[2017-11-11] MEDS: dilTIAZem 25 MG/5 ML Vial 10 MG IV BOLUS (08:35)
--- NOTE | 2017-11-11 10:17 | PCM.PROGNOTE ---
Subjective: Patient did okay overnight. Patient did have periods of tachycardia that resolved spontaneously. However, on my evaluation this morning, patient had a heart rate of 171 bpm. Patient was given 10 mg of Cardizem with some improvement, but had to be initiated on Cardizem drip. Patient reported slightly worsening shortness of breath compared to previous. No chest pain was reported. Patient did not have any syncope or other hemodynamic instability. - Physical Exam General: Alert, Oriented x3, Cooperative, - - Thin build. Mild respiratory distress HEENT: Atraumatic, PERRLA, EOMI, Normocephalic, - - No scleral icterus or injection noted. Oral: Moist Mucosa, No Gingival or Mucosal Lesions/ Ulcerations Neck: Supple, No JVD, No Nodes, Trachea Midline Lungs: No rhonchi, No wheeze, No rales, Diminished, - - Dullness to percussion at the left chest Cardiovascular: No murmurs, Irregular Rate, No rub noted, No Gallop, Tachycardic, - - A flutter noted on telemetry Abdomen: Bowel Sounds Present, Soft, Non Tender, Non-Distended, - - PEG clean, dry and intact. Extremities: No cyanosis, No edema, Capillary Refill Less than 3 Seconds, Clubbing Skin: No rashes, No breakdown Musculoskeletal: No Tenderness to Palpation of Joints or Extremities, No Muscle Wasting Lymphatic: No Cervical, Supraclavicular, or Inguinal Adenopathy Neurological: Cranial nerves II-XII grossly intact, Neuro grossly intact, Motor Exam 5/5 strength throughout Psych/Mental Status: Alert and oriented to time, place, person, mood and affect Vital Signs Temp Pulse Resp BP Pulse Ox 37.4 C H 103 H 17 117/57 L 97 11/11/17 08:25 11/11/17 09:31 11/11/17 09:31 11/11/17 09:31 11/11/17 09:31 Oxygen Flow Rate (L/min) 2 Oxygen Delivery Method Nasal Cannula Weight: 54.9 kg Body Mass Index (BMI) 18.9 Intake and Output for Last 24 Hours 11/09/17 11/10/17 11/11/17 23:59 23:59 23:59 Intake Total 243 / 243 1833 / 1833 Output Total 600 / 600 Balance 243 / 243 1233 / 1233 Microbiology Past 72 Hours 11/10/17 19:42 Gram Stain - Final Sputum, Expectorated/Coughed Laboratory Tests Past 24 Hrs 11/10/17 11/10/17 11/10/17 13:15 14:15 14:25 WBC RBC Hgb Hct MCV MCH MCHC RDW RDW Differential Plt Count MPV Immature Gran % (Auto) Neut % (Auto) Lymph % (Auto) [place] % (Auto) Eos % (Auto) Baso % (Auto) Absolute Neuts (auto) Absolute Lymphs (auto) Total Counted Differential Comment PT 14.6 INR 1.1 APTT 33.7 Sodium Potassium Chloride Carbon Dioxide Anion Gap BUN Creatinine Estim Creat Clear Calc Est GFR (MDRD) Af Amer Est GFR (MDRD) Non-Af BUN/Creatinine Ratio Glucose Calcium Magnesium Troponin I 0.016 Urine Color Yellow Urine Clarity Clear Urine pH 7.0 Ur Specific [place] 1.010 Urine Protein 15 H Urine Glucose (UA) Normal Urine Ketones Negative Urine Occult Blood Negative Urine Nitrite Negative Urine Bilirubin Negative Urine Urobilinogen Normal Ur Leukocyte Esterase Negative Urine RBC 0 SEEN Urine WBC 0 SEEN Ur Squamous Epith Cells 0 SEEN Urine Bacteria RARE Urine Mucus 0 SEEN 11/10/17 11/11/17 11/11/17 17:10 04:20 04:20 WBC 7.9 RBC 2.76 L Hgb 8.1 L Hct 26.2 L MCV 94.9 H MCH 29.3 MCHC 30.9 L RDW 15.3 H RDW Differential 50.4 H Plt Count 436 MPV 8.4 Immature Gran % (Auto) 0.400 Neut % (Auto) 81.6 H Lymph % (Auto) 4.2 L [place] % (Auto) 11.7 H Eos % (Auto) 1.8 Baso % (Auto) 0.3 Absolute Neuts (auto) 6.4 Absolute Lymphs (auto) 0.33 L Total Counted Not Reportable Differential Comment SCANNED PT INR APTT Sodium 138 Potassium 4.5 Chloride 99 Carbon Dioxide 31.0 Anion Gap 8 BUN 23 H Creatinine 0.74 Estim Creat Clear Calc 81.40 Est GFR (MDRD) Af Amer 137 Est GFR (MDRD) Non-Af 114 BUN/Creatinine Ratio 31.0 H Glucose 96 Calcium 8.8 Magnesium Troponin I < 0.015 Urine Color Urine Clarity Urine pH Ur Specific [place] Urine Protein Urine Glucose (UA) Urine Ketones Urine Occult Blood Urine Nitrite Urine Bilirubin Urine Urobilinogen Ur Leukocyte Esterase Urine RBC Urine WBC Ur Squamous Epith Cells Urine Bacteria Urine Mucus 11/11/17 04:50 WBC RBC Hgb Hct MCV MCH MCHC RDW RDW Differential Plt Count MPV Immature Gran % (Auto) Neut % (Auto) Lymph % (Auto) [place] % (Auto) Eos % (Auto) Baso % (Auto) Absolute Neuts (auto) Absolute Lymphs (auto) Total Counted Differential Comment PT INR APTT Sodium Potassium Chloride Carbon Dioxide Anion Gap BUN Creatinine Estim Creat Clear Calc Est GFR (MDRD) Af Amer Est GFR (MDRD) Non-Af BUN/Creatinine Ratio Glucose Calcium Magnesium 2.0 Troponin I Urine Color Urine Clarity Urine pH Ur Specific [place] Urine Protein Urine Glucose (UA) Urine Ketones Urine Occult Blood Urine Nitrite Urine Bilirubin Urine Urobilinogen Ur Leukocyte Esterase Urine RBC Urine WBC Ur Squamous Epith Cells Urine Bacteria Urine Mucus Clinical Impression(s) from Imaging Studies Chest X-Ray 11/10/17 09:38 IMPRESSION: Progressive pleural parenchymal changes at the left lung base with volume loss in the left hemithorax. Electronically Signed: Yosef Blevins MD at 10:26 EDT Tel [phone], Service support , Medical Necessity - Tobacco Use Smoking Status: Former smoker Tobacco Use: Cigarettes - [id number] history Assessment/Plan RECOMMENDATIONS 1. Oxygen supplementation to keep saturations greater than 90% 2. Encourage incentive spirometer 3. Okay to proceed with Pleurx catheter 4. Continue PRN aerosols 5. Continue with Cardizem drip 6. Continue nutrition through PEG tube 7. Hold on anticoagulation for now given surgical procedure IMPRESSIONS 1. Stage III non-small cell lung cancer Follows with Dr. Robles, had an endobronchial ultrasound guided biopsy in September 2017 with diagnosis of non-small cell lung cancer. Patient with recent thoracentesis on 11/06 and removal of approximate 530 mL of bloody fluid. Current imaging showing rapid reaccumulation of the fluid, highly suspicious for recurrent malignant effusion. Patient has agreed to Pleurx catheter placement. Likely okay to continue with plan. Removal of pleural fluid may improve cardiac irritation. 2. New onset a flutter with RVR Patient does not have an echocardiogram currently on file. Some concern patient may have a concomitant pericardial effusion. Will order echocardiogram. Dr. Arreaga was personally contacted about the case and has seen the patient. Patient was placed on a Cardizem drip. 3. Chronic anemia/dysphagia/history of laryngeal cancer status post radiation/tobacco dependence in remission Complicates care, management, recovery, and prognosis. May benefit from a swallowing evaluation. Encouraged ongoing smoking cessation. Hemoglobin has been stable through hospitalization. No evidence of acute bleed at this time. Thank you for the opportunity to participate in this patient's care, please do not hesitate contact us with any further questions or concerns. This note was generated with [employer] dictation software. It may contain incorrect words, spelling, and punctuation that were not noted in checking the note before signing. Code Visit Inpatient E&M: 57581 Subs Hosp L3
--- NOTE | 2017-11-11 10:23 | PN_ITS ---
Subjective: Patient did okay overnight. Patient did have periods of tachycardia that resolved spontaneously. However, on my evaluation this morning, patient had a heart rate of 171 bpm. Patient was given 10 mg of Cardizem with some improvement, but had to be initiated on Cardizem drip. Patient reported slightly worsening shortness of breath compared to previous. No chest pain was reported. Patient did not have any syncope or other hemodynamic instability. - Physical Exam General: Alert, Oriented x3, Cooperative, - - Thin build. Mild respiratory distress HEENT: Atraumatic, PERRLA, EOMI, Normocephalic, - - No scleral icterus or injection noted. Oral: Moist Mucosa, No Gingival or Mucosal Lesions/ Ulcerations Neck: Supple, No JVD, No Nodes, Trachea Midline Lungs: No rhonchi, No wheeze, No rales, Diminished, - - Dullness to percussion at the left chest Cardiovascular: No murmurs, Irregular Rate, No rub noted, No Gallop, Tachycardic , - - A flutter noted on telemetry Abdomen: Bowel Sounds Present, Soft, Non Tender, Non-Distended, - - PEG clean, dry and intact. Extremities: No cyanosis, No edema, Capillary Refill Less than 3 Seconds, Clubbing Skin: No rashes, No breakdown Musculoskeletal: No Tenderness to Palpation of Joints or Extremities, No Muscle Wasting Lymphatic: No Cervical, Supraclavicular, or Inguinal Adenopathy Neurological: Cranial nerves II-XII grossly intact, Neuro grossly intact, Motor Exam 5/5 strength throughout Psych/Mental Status: Alert and oriented to time, place, person, mood and affect Vital Signs Temp Pulse Resp BP Pulse Ox 37.4 C H 103 H 17 117/57 L 97 11/11/17 08:25 11/11/17 09:31 11/11/17 09:31 11/11/17 09:31 11/11/17 09:31 Oxygen Flow Rate (L/min) 2 Oxygen Delivery Method Nasal Cannula Weight: 54.9 kg Body Mass Index (BMI) 18.9 Intake and Output for Last 24 Hours 11/09/17 11/10/17 11/11/17 23:59 23:59 23:59 Intake Total 243 / 243 1833 / 1833 Output Total 600 / 600 Balance 243 / 243 1233 / 1233 Microbiology Past 72 Hours 11/10/17 19:42 Gram Stain - Final Sputum, Expectorated/Coughed Laboratory Tests Past 24 Hrs 11/10/17 11/10/17 11/10/17 13:15 14:15 14:25 WBC RBC Hgb Hct MCV MCH MCHC RDW RDW Differential Plt Count MPV Immature Gran % (Auto) Neut % (Auto) Lymph % (Auto) [place] % (Auto) Eos % (Auto) Baso % (Auto) Absolute Neuts (auto) Absolute Lymphs (auto) Total Counted Differential Comment PT 14.6 INR 1.1 APTT 33.7 Sodium Potassium Chloride Carbon Dioxide Anion Gap BUN Creatinine Estim Creat Clear Calc Est GFR (MDRD) Af Amer Est GFR (MDRD) Non-Af BUN/Creatinine Ratio Glucose Calcium Magnesium Troponin I 0.016 Urine Color Yellow Urine Clarity Clear Urine pH 7.0 Ur Specific [place] 1.010 Urine Protein 15 H Urine Glucose (UA) Normal Urine Ketones Negative Urine Occult Blood Negative Urine Nitrite Negative Urine Bilirubin Negative Urine Urobilinogen Normal Ur Leukocyte Esterase Negative Urine RBC 0 SEEN Urine WBC 0 SEEN Ur Squamous Epith Cells 0 SEEN Urine Bacteria RARE Urine Mucus 0 SEEN 11/10/17 11/11/17 11/11/17 17:10 04:20 04:20 WBC 7.9 RBC 2.76 L Hgb 8.1 L Hct 26.2 L MCV 94.9 H MCH 29.3 MCHC 30.9 L RDW 15.3 H RDW Differential 50.4 H Plt Count 436 MPV 8.4 Immature Gran % (Auto) 0.400 Neut % (Auto) 81.6 H Lymph % (Auto) 4.2 L [place] % (Auto) 11.7 H Eos % (Auto) 1.8 Baso % (Auto) 0.3 Absolute Neuts (auto) 6.4 Absolute Lymphs (auto) 0.33 L Total Counted Not Reportable Differential Comment SCANNED PT INR APTT Sodium 138 Potassium 4.5 Chloride 99 Carbon Dioxide 31.0 Anion Gap 8 BUN 23 H Creatinine 0.74 Estim Creat Clear Calc 81.40 Est GFR (MDRD) Af Amer 137 Est GFR (MDRD) Non-Af 114 BUN/Creatinine Ratio 31.0 H Glucose 96 Calcium 8.8 Magnesium Troponin I < 0.015 Urine Color Urine Clarity Urine pH Ur Specific [place] Urine Protein Urine Glucose (UA) Urine Ketones Urine Occult Blood Urine Nitrite Urine Bilirubin Urine Urobilinogen Ur Leukocyte Esterase Urine RBC Urine WBC Ur Squamous Epith Cells Urine Bacteria Urine Mucus 11/11/17 04:50 WBC RBC Hgb Hct MCV MCH MCHC RDW RDW Differential Plt Count MPV Immature Gran % (Auto) Neut % (Auto) Lymph % (Auto) [place] % (Auto) Eos % (Auto) Baso % (Auto) Absolute Neuts (auto) Absolute Lymphs (auto) Total Counted Differential Comment PT INR APTT Sodium Potassium Chloride Carbon Dioxide Anion Gap BUN Creatinine Estim Creat Clear Calc Est GFR (MDRD) Af Amer Est GFR (MDRD) Non-Af BUN/Creatinine Ratio Glucose Calcium Magnesium 2.0 Troponin I Urine Color Urine Clarity Urine pH Ur Specific [place] Urine Protein Urine Glucose (UA) Urine Ketones Urine Occult Blood Urine Nitrite Urine Bilirubin Urine Urobilinogen Ur Leukocyte Esterase Urine RBC Urine WBC Ur Squamous Epith Cells Urine Bacteria Urine Mucus Clinical Impression(s) from Imaging Studies Chest X-Ray 11/10/17 09:38 IMPRESSION: Progressive pleural parenchymal changes at the left lung base with volume loss in the left hemithorax. Electronically Signed: Yosef Blevins MD at 10:26 EDT Tel [phone], Service support , Medical Necessity - Tobacco Use Smoking Status: Former smoker Tobacco Use: Cigarettes - [id number] history Assessment/Plan RECOMMENDATIONS 1. Oxygen supplementation to keep saturations greater than 90% 2. Encourage incentive spirometer 3. Okay to proceed with Pleurx catheter 4. Continue PRN aerosols 5. Continue with Cardizem drip 6. Continue nutrition through PEG tube 7. Hold on anticoagulation for now given surgical procedure IMPRESSIONS 1. Stage III non-small cell lung cancer Follows with Dr. Robles, had an endobronchial ultrasound guided biopsy in September 2017 with diagnosis of non-small cell lung cancer. Patient with recent thoracentesis on 11/06 and removal of approximate 530 mL of bloody fluid. Current imaging showing rapid reaccumulation of the fluid, highly suspicious for recurrent malignant effusion. Patient has agreed to Pleurx catheter placement. Likely okay to continue with plan. Removal of pleural fluid may improve cardiac irritation. 2. New onset a flutter with RVR Patient does not have an echocardiogram currently on file. Some concern patient may have a concomitant pericardial effusion. Will order echocardiogram. Dr. Arreaga was personally contacted about the case and has seen the patient. Patient was placed on a Cardizem drip. 3. Chronic anemia/dysphagia/history of laryngeal cancer status post radiation/tobacco dependence in remission Complicates care, management, recovery, and prognosis. May benefit from a swallowing evaluation. Encouraged ongoing smoking cessation. Hemoglobin has been stable through hospitalization. No evidence of acute bleed at this time. Thank you for the opportunity to participate in this patient's care, please do not hesitate contact us with any further questions or concerns. This note was generated with [employer] dictation software. It may contain incorrect words, spelling, and punctuation that were not noted in checking the note before signing. Code Visit Inpatient E&M: 27170 Subs Hosp L3
[2017-11-11] MEDS: Cefazolin 2 GM in 0.9% Normal Saline 100 ML IV (10:53)
[2017-11-11] MEDS: Bupivacaine Mpf 0.5% 30 ML VIAL (11:00)
--- NOTE | 2017-11-11 11:35 | PCM.OPRPT ---
Report of Operation Date of Procedure: 11/11/17 Pre-Operative Diagnosis: LEFT RECURRENT PLUERAL EFFUSION Post-Operative Diagnosis: LEFT RECURRENT PLUERAL EFFUSION - Surgery/Procedure Performed:: LEFT TUNNELED PLEURAL/PLEUREX CATHETER WITH ULTRASOUND GUIDANCE federal mediation commissioner: None Type of Anesthesia:: MAC Anesthesiologist: Tino Velasquez - ASA3 Specimen's removed: pleural fluid for culture Drains: LEFT PLEUREX DRAIN - 300CC - GELATINOUS Estimated Blood Loss (mL): MINIMAL Fluids Replaced: 150 Description of Procedure: The patient was brought to the operating suite. The left chest site was marked in the holding area and the patient concurred this was the planned operative site. Sign was performed verifying patient, site, position, skip antibiotic prophylaxis-2 g of Ancef and DVT prophylaxis with SCDs. Ultrasound was used to evaluate the left thoracic space and pleural fluid was noted to be at the planned site which was marked on the skin Following IV sedation, left chest and upper lateral abdomen were prepped and draped in the usual fashion. Timeout was performed verifying patient, site, position. Local anesthetic was injected and a Seldinger needle was used to access the left pleural space without difficulty. a guidewire was inserted and advanced into the pleural space. Local anesthetic was injected and incision made for the catheter exit site. Next the catheter was tunneled from the skin exit site to the wire. Dilators were placed over the wire until the largest dilator with introducer sheath were placed. The wire and dilator removed. The catheter was fed through the introducer suture sheath and adjusted to the edge of the pleural surface with the fenestrations . There was good return of pleural fluid. The Pleurx catheter was affixed to an adapter and attached to a Pleur-evac at 25 cm suction. A total of approximately 400 cc of fluid was drained. The catheter was secured with a 3-0 silk suture at the skin exit site. The thoracic site. Skin was closed with 4-0 Biosyn interrupted subcuticular sutures. Dermabond was applied to the thoracic site. A dressing was applied. The joints were taped and a large dressing placed over the drain exit site. The patient was brought to recovery room in stable condition with plans for a postprocedure chest x-ray. - Admit VTE Documentation VTE Present on Admission: No
--- NOTE | 2017-11-11 11:37 | RAD_ITS ---
STUDY: X-RAY CHEST REASON FOR EXAM: Male, 61 years old. Pleural effusion TECHNIQUE: Single AP portable view of the chest. COMPARISON: 11/10/2017 FINDINGS: Implanted central catheter seen overlying the left chest with the tip in the SVC. There is a new left pleural catheter, with the tip projecting near the left lung apex. The right lung is expanded and clear. There is a posteriorly layering left pleural effusion. This is very similar to the prior study. There is left lower lobe opacification. There may be slightly increasing left upper lobe airspace disease. No pneumothorax. Normal size heart. Normal mediastinum and tashia. Normal visualized pulmonary arteries. Normal visualized aortic arch and descending thoracic aorta. Normal visualized thoracic spine. Normal visualized ribs, clavicles, and shoulders. There is no demonstrated abnormality of the visualized soft tissue structures of the upper abdomen. There is a small amount of subcutaneous emphysema at the left lateral chest wall. RAD/Chest 1 View (Portable) IMPRESSION: New left pleural catheter in place. No pneumothorax. There may be some increasing left upper lobe airspace disease. Electronically Signed: Steve Marquez DO at 12:19 EDT Tel , Service support ,
[2017-11-11] MEDS: LORazepam 0.5 MG Tablet PO ×2 (13:48→22:22)
[2017-11-11] MEDS: Levothyroxine 150 MCG Tablet PO (13:48)
--- NOTE | 2017-11-11 17:40 | PCM.CONS.C ---
Problem List (1) Atrial fibrillation and flutter Status: Acute (2) Pleural effusion Status: Acute (3) Non-small cell carcinoma of left lung, stage 3 Status: Chronic (4) Chronic anemia Status: Chronic Reason for Consult Date of Consultation: 11/11/17 History of Present Illness: The patient is a 61 year old white male who is referred for evaluation of paroxysmal atrial fibrillation/flutter with rapid ventricular response. The patient has been undergoing evaluation care for underlying lung carcinoma with concerns of metastatic pleural effusion. He is pending upcoming repeat thoracentesis/Pleurx catheter placement. In the interim he has been noted to have intermittent episodes of rapid heart rates which based on his cardiac rhythm strips appear compatible with episodes of paroxysmal atrial fibrillation/flutter. He has required treatment with IV diltiazem. He has been not thought to be an ideal candidate for systemic anticoagulation at this time based upon the need for upcoming further invasive evaluation/therapy. He denies any obvious palpitations. He has had intermittent vague left-sided chest discomfort she has been attributed to his left sided pleural effusion. This has not radiated. He has had progressive shortness of breath and dyspnea which has been attributed to his underlying pulmonary disease process. There has been no acute orthopnea, PND, peripheral pitting edema. There has been no near syncope or syncope. He denies any previous cardiovascular history or undergoing previous cardiovascular diagnostic studies. [] Past Medical History Allergies/Adverse Reactions: Allergies Iodinated Contrast- Oral and IV Dye [CT] Allergy (Mild, Verified 11/10/17 09:26) Rash Home Medications: Ambulatory Orders Medication Instructions Recorded Albuterol IH (ProAir) [Proair Hfa] 2 puff INHALATION Q6H PRN 11/10/17 Dexamethasone [Decadron] 1 tablet PO DAILY@0800 11/10/17 Levothyroxine [Synthroid] 1 tablet PO DAILY 11/10/17 Lorazepam [Ativan] 1 tablet PO BID PRN 11/10/17 Oxycodone HCl/Acetaminophen 1 tablet PO Q6H PRN 11/10/17 [Percocet 5-325] Past Medical History (Chronic Problems): Chronic Problems (Last Reviewed 11/06/17 @ 15:29 by Lotus Lemos RN) Chronic anemia (Chronic) Dysphagia (Chronic) Non-small cell carcinoma of left lung, stage 3 (Chronic) History of laryngeal cancer (Chronic) Pulmonary nodule, left (Chronic) Tobacco dependence in remission (Chronic) PEG (percutaneous endoscopic gastrostomy) status (Chronic) Surgical History: herniorrhaphy, - - PEG tube placement. Psychiatric History: Anxiety - *Family History Paternal Family History: Family History (Last Reviewed 11/06/17 @ 15:29 by Lotus Lemos RN) Father Heart disease History Items: Heart Disease - Maternal Family History: Family History (Last Reviewed 11/06/17 @ 15:29 by Lotus Lemos RN) Father Heart disease History Items: No pertinent history Lives: With Family Smoking Status: Former smoker Tobacco Use: Cigarettes - 82-acnj-cohh history Alcohol: None Drugs: None Review of Systems - Review of Systems General: Denies: Fever, Night Sweats, Fatigue Cardiovascular: Reports: Chest Discomfort, Shortness of Breath. Denies: Orthopnea, PND, Peripheral Edema, Palpitations, Lightheadedness, Dizziness, Near Syncope, Syncope Respiratory: Reports: Shortness of Breath Gastrointestinal: Denies: Hematemesis, Hematochezia, Melena Genitourinary: Denies: Dysuria, Hematuria Subjectve: This is a cachectic appearing 61-year-old white male who appears to be resting comfortably at the moment in no acute distress. Objective: Vital Signs Temp Pulse Resp BP Pulse Ox 99.1 F 84 24 H 103/55 L 94 11/11/17 13:00 11/11/17 17:00 11/11/17 17:00 11/11/17 17:00 11/11/17 17:00 Oxygen Flow Rate (L/min) 2 Oxygen Delivery Method Room Air Weight: 121 lb 0.54 oz Body Mass Index (BMI) 18.9 Intake and Output for Last 24 Hours 11/09/17 11/10/17 11/11/17 23:59 23:59 23:59 Intake Total 243 / 243 2433 / 2433 Output Total 1130 / 1130 Balance 243 / 243 1303 / 1303 General: Awake, Alert, Oriented x 3, Cooperative, No Acute Distress HEENT: Atraumatic, Normocephalic, PERRL, EOMI, Sclera Non Icteric Oral: Moist Mucosa Neck: Supple, Good ROM, No JVD Lungs: Diminished Left Base Cardiovascular: Irregular Rhythm, Normal S1, Normal S2 Vascular: No Carotid Bruits Abdomen: Bowel Sounds Present, Soft, Non Tender Extremities: No edema Psych/Mental Status: Appropriate, Normal Affect 11/10/17 17:10: Troponin I < 0.015 11/11/17 04:20: Sodium 138, Potassium 4.5, Chloride 99, Carbon Dioxide 31.0, Anion Gap 8, BUN 23 H, Creatinine 0.74, Est GFR (MDRD) Af Amer 137, Est GFR (MDRD) Non-Af 114, BUN/Creatinine Ratio 31.0 H, Glucose 96, Calcium 8.8 11/11/17 04:20: WBC 7.9, RBC 2.76 L, Hgb 8.1 L, Hct 26.2 L, MCV 94.9 H, MCH 29.3, MCHC 30.9 L, RDW 15.3 H, RDW Differential 50.4 H, Plt Count 436, MPV 8.4, Immature Gran % (Auto) 0.400, Neut % (Auto) 81.6 H, Lymph % (Auto) 4.2 L, [place] % (Auto) 11.7 H, Eos % (Auto) 1.8, Baso % (Auto) 0.3, Absolute Neuts (auto) 6.4, Total Counted Not Reportable 11/11/17 04:50: Magnesium 2.0 Rhythm: Atrial fibrillation/flutter with rapid ventricular response EKG: Atrial flutter; poor R-wave progression ECHO: 11/11/2017: LV considered normal with an estimated LVEF 55%; echolucency compatible with a pleural effusion; please see official report CXR: Please see official report Assessment/Plan 1. Paroxysmal atrial fibrillation/flutter The patient has demonstrated evidence of paroxysmal atrial fibrillation/flutter. The etiology may be multifactorial. This may be related to a combination of the patient's age, underlying pulmonary disease process, however, at the same time he needs to be monitored for other obvious etiologies. At the present time he is being treated with rate control therapy. It would be reasonable to consider an attempt at regaining sinus rhythm as this recently occurred. An attempt will be made to use IV amiodarone. At the moment he is not an ideal candidate for systemic anticoagulation therapy secondary to his need to undergo continued invasive evaluation care. However, depending upon his clinical course, if this changes, he may become a candidate for systemic oral anticoagulant therapy. Also depending upon his clinical course, if he is able to undergo systemic oral anticoagulation, that he may be considered for a future attempt, if he remains in atrial fibrillation/flutter, with synchronized biphasic DC cardioversion. He has undergone noninvasive studies with a transthoracic echocardiogram. He may eventually need further cardiovascular studies either noninvasive or invasive to evaluate his cardiovascular status as deemed appropriate going forward with respect to his pulmonary condition, etc. 2. Pleural effusion He does have a pleural effusion. Hopefully by placement of his upcoming catheter this will minimize his pleural effusion. This may help with respect any contribution to his atrial dysrhythmias. 3. Lung carcinoma He is pending further evaluation care by hematology oncology with chemotherapy. 4. Anemia The patient does appear to have anemia. This may be anemia of chronic disease. He will need to be monitored for other etiologies. In the meantime depending upon his H&H, if it declines, he may need PRBCs to assist in his oxygen carrying capacity. Comment: The patient's case has been discussed and reviewed with patient and Dr. Oliver of the [facility] pulmonology/critical care medicine staff. This note was generated with [employer] dictation software. It may contain incorrect words, spelling, and punctuation that were not noted in checking the note before signing.
--- NOTE | 2017-11-11 17:50 | CON.PCM_ITS ---
Problem List (1) Atrial fibrillation and flutter Status: Acute (2) Pleural effusion Status: Acute (3) Non-small cell carcinoma of left lung, stage 3 Status: Chronic (4) Chronic anemia Status: Chronic Reason for Consult Date of Consultation: 11/11/17 History of Present Illness: The patient is a 61 year old white male who is referred for evaluation of paroxysmal atrial fibrillation/flutter with rapid ventricular response. The patient has been undergoing evaluation care for underlying lung carcinoma with concerns of metastatic pleural effusion. He is pending upcoming repeat thoracentesis/Pleurx catheter placement. In the interim he has been noted to have intermittent episodes of rapid heart rates which based on his cardiac rhythm strips appear compatible with episodes of paroxysmal atrial fibrillation/ flutter. He has required treatment with IV diltiazem. He has been not thought to be an ideal candidate for systemic anticoagulation at this time based upon the need for upcoming further invasive evaluation/therapy. He denies any obvious palpitations. He has had intermittent vague left-sided chest discomfort she has been attributed to his left sided pleural effusion. This has not radiated. He has had progressive shortness of breath and dyspnea which has been attributed to his underlying pulmonary disease process. There has been no acute orthopnea, PND, peripheral pitting edema. There has been no near syncope or syncope. He denies any previous cardiovascular history or undergoing previous cardiovascular diagnostic studies. [] Past Medical History Allergies/Adverse Reactions: Allergies Iodinated Contrast- Oral and IV Dye [CT] Allergy (Mild, Verified 11/10/17 09:26) Rash Home Medications: Ambulatory Orders Medication Instructions Recorded Albuterol IH (ProAir) [Proair Hfa] 2 puff INHALATION Q6H PRN 11/10/17 Dexamethasone [Decadron] 1 tablet PO DAILY@0800 11/10/17 Levothyroxine [Synthroid] 1 tablet PO DAILY 11/10/17 Lorazepam [Ativan] 1 tablet PO BID PRN 11/10/17 Oxycodone HCl/Acetaminophen 1 tablet PO Q6H PRN 11/10/17 [Percocet 5-325] Past Medical History (Chronic Problems): Chronic Problems (Last Reviewed 11/06/17 @ 15:29 by Lotus Lemos RN) Chronic anemia (Chronic) Dysphagia (Chronic) Non-small cell carcinoma of left lung, stage 3 (Chronic) History of laryngeal cancer (Chronic) Pulmonary nodule, left (Chronic) Tobacco dependence in remission (Chronic) PEG (percutaneous endoscopic gastrostomy) status (Chronic) Surgical History: herniorrhaphy, - - PEG tube placement. Psychiatric History: Anxiety - *Family History Paternal Family History: Family History (Last Reviewed 11/06/17 @ 15:29 by Lotus Lemos RN) Father Heart disease History Items: Heart Disease - Maternal Family History: Family History (Last Reviewed 11/06/17 @ 15:29 by Lotus Lemos RN) Father Heart disease History Items: No pertinent history Lives: With Family Smoking Status: Former smoker Tobacco Use: Cigarettes - [id number] history Alcohol: None Drugs: None Review of Systems - Review of Systems General: Denies: Fever, Night Sweats, Fatigue Cardiovascular: Reports: Chest Discomfort, Shortness of Breath. Denies: Orthopnea, PND, Peripheral Edema, Palpitations, Lightheadedness, Dizziness, Near Syncope, Syncope Respiratory: Reports: Shortness of Breath Gastrointestinal: Denies: Hematemesis, Hematochezia, Melena Genitourinary: Denies: Dysuria, Hematuria Subjectve: This is a cachectic appearing 61-year-old white male who appears to be resting comfortably at the moment in no acute distress. Objective: Vital Signs Temp Pulse Resp BP Pulse Ox 99.1 F 84 24 H 103/55 L 94 11/11/17 13:00 11/11/17 17:00 11/11/17 17:00 11/11/17 17:00 11/11/17 17:00 Oxygen Flow Rate (L/min) 2 Oxygen Delivery Method Room Air Weight: 121 lb 0.54 oz Body Mass Index (BMI) 18.9 Intake and Output for Last 24 Hours 11/09/17 11/10/17 11/11/17 23:59 23:59 23:59 Intake Total 243 / 243 2433 / 2433 Output Total 1130 / 1130 Balance 243 / 243 1303 / 1303 General: Awake, Alert, Oriented x 3, Cooperative, No Acute Distress HEENT: Atraumatic, Normocephalic, PERRL, EOMI, Sclera Non Icteric Oral: Moist Mucosa Neck: Supple, Good ROM, No JVD Lungs: Diminished Left Base Cardiovascular: Irregular Rhythm, Normal S1, Normal S2 Vascular: No Carotid Bruits Abdomen: Bowel Sounds Present, Soft, Non Tender Extremities: No edema Psych/Mental Status: Appropriate, Normal Affect 11/10/17 17:10: Troponin I < 0.015 11/11/17 04:20: Sodium 138, Potassium 4.5, Chloride 99, Carbon Dioxide 31.0, Anion Gap 8, BUN 23 H, Creatinine 0.74, Est GFR (MDRD) Af Amer 137, Est GFR ( MDRD) Non-Af 114, BUN/Creatinine Ratio 31.0 H, Glucose 96, Calcium 8.8 11/11/17 04:20: WBC 7.9, RBC 2.76 L, Hgb 8.1 L, Hct 26.2 L, MCV 94.9 H, MCH 29.3 , MCHC 30.9 L, RDW 15.3 H, RDW Differential 50.4 H, Plt Count 436, MPV 8.4, Immature Gran % (Auto) 0.400, Neut % (Auto) 81.6 H, Lymph % (Auto) 4.2 L, [place] % (Auto) 11.7 H, Eos % (Auto) 1.8, Baso % (Auto) 0.3, Absolute Neuts (auto) 6.4 , Total Counted Not Reportable 11/11/17 04:50: Magnesium 2.0 Rhythm: Atrial fibrillation/flutter with rapid ventricular response EKG: Atrial flutter; poor R-wave progression ECHO: 11/11/2017: LV considered normal with an estimated LVEF 55%; echolucency compatible with a pleural effusion; please see official report CXR: Please see official report Assessment/Plan 1. Paroxysmal atrial fibrillation/flutter The patient has demonstrated evidence of paroxysmal atrial fibrillation/ flutter. The etiology may be multifactorial. This may be related to a combination of the patient's age, underlying pulmonary disease process, however , at the same time he needs to be monitored for other obvious etiologies. At the present time he is being treated with rate control therapy. It would be reasonable to consider an attempt at regaining sinus rhythm as this recently occurred. An attempt will be made to use IV amiodarone. At the moment he is not an ideal candidate for systemic anticoagulation therapy secondary to his need to undergo continued invasive evaluation care. However, depending upon his clinical course, if this changes, he may become a candidate for systemic oral anticoagulant therapy. Also depending upon his clinical course, if he is able to undergo systemic oral anticoagulation, that he may be considered for a future attempt, if he remains in atrial fibrillation/flutter, with synchronized biphasic DC cardioversion. He has undergone noninvasive studies with a transthoracic echocardiogram. He may eventually need further cardiovascular studies either noninvasive or invasive to evaluate his cardiovascular status as deemed appropriate going forward with respect to his pulmonary condition, etc. 2. Pleural effusion He does have a pleural effusion. Hopefully by placement of his upcoming catheter this will minimize his pleural effusion. This may help with respect any contribution to his atrial dysrhythmias. 3. Lung carcinoma He is pending further evaluation care by hematology oncology with chemotherapy. 4. Anemia The patient does appear to have anemia. This may be anemia of chronic disease. He will need to be monitored for other etiologies. In the meantime depending upon his H&H, if it declines, he may need PRBCs to assist in his oxygen carrying capacity. Comment: The patient's case has been discussed and reviewed with patient and Dr. Oliver of the [facility] pulmonology/critical care medicine staff. This note was generated with [employer] dictation software. It may contain incorrect words, spelling, and punctuation that were not noted in checking the note before signing.
[2017-11-11] MEDS: oxyCODONE 5 MG Tablet PO (20:15)
[2017-11-11] MEDS: morphine 10 MG/ML Syringe IV (23:24)
[2017-11-12] VITALS (16 sets, daily range): BP systolic 101–123; BP diastolic 56–91; PULSE 69–85; RESP 12–26; TEMP 37.1–37.2; O2SAT 90–99
[2017-11-12] MEDS: morphine 10 MG/ML Syringe IV ×3 (02:49→10:41)
[2017-11-12] MEDS: 0.9% NaCl Peripheral Flush Adult/Peds IV ×2 (02:49→06:26)
[2017-11-12 04:58] LABS: Hematocrit 25.9 % (40-54)
--- NOTE | 2017-11-12 05:00 | RAD_ITS ---
STUDY: X-RAY CHEST REASON FOR EXAM: Male, 61 years old. Pleural effusion TECHNIQUE: Single AP portable view of the chest. COMPARISON: 11/10/2017, 11/11/2017 FINDINGS: Left pleural catheter is unchanged. The tip projects near the left lung apex. Implanted left central catheter is seen with the tip in the SVC. Cardiac monitoring leads overlie the chest. The right lung is slightly hyperinflated. There is near complete opacification of the left hemithorax with evidence of some volume loss and mediastinal shift towards the left. There is some minimal aeration at the left lung apex. Heart size is difficult to evaluate due to adjacent left lung consolidation. There is mediastinal shift towards the left. Normal visualized pulmonary arteries. Normal visualized aortic arch and descending thoracic aorta. Normal visualized thoracic spine. Normal visualized ribs, clavicles, and shoulders. There is subcutaneous emphysema along the left lateral chest wall. RAD/Chest 1 View (Portable) IMPRESSION: Increasing opacification of the left hemithorax, with evidence of some volume loss. This is likely a combination of atelectasis, consolidation, pleural effusion. Life support tubes and catheters, as detailed above. Electronically Signed: Steve Marquez DO at 8:10 EDT Tel , Service support ,
--- NOTE | 2017-11-12 05:55 | EKG12_ITS ---
Test Reason : RHY CHANGE Blood Pressure : / mmHG Vent. Rate : 072 BPM Atrial Rate : 072 BPM P-R Int : 136 ms QRS Dur : 086 ms QT Int : 370 ms P-R-T Axes : 072 089 066 degrees QTc Int : 405 ms Normal sinus rhythm Normal ECG When compared with ECG of 11-NOV-2017 13:22, MANUAL COMPARISON REQUIRED, DATA IS UNCONFIRMED Confirmed by JOHNNY FERNANDEZ, MIKEY ([id number]), society editor WILLIAM CARLSON ([id number]) on 11/14/2017 9:45:59 AM Referred By: ISIDRO Confirmed By:MIKEY TURNER MD
[2017-11-12] MEDS: Levothyroxine 150 MCG Tablet PO (06:13)
--- NOTE | 2017-11-12 06:54 | CT_ITS ---
STUDY: CT CHEST WITHOUT CONTRAST REASON FOR EXAM: Male, 61 years old. Pleural effusion, non-small cell lung cancer, laryngeal cancer RADIATION DOSAGE (If Supplied By Facility): CTDIvol = ( 7.56 ) mGy, DLP = ( 295.48 ) mGycm TECHNIQUE: Transaxial imaging was performed without the administration of intravenous contrast material. Multiplanar coronal and sagittal images were reformatted. Individualized dose optimization techniques were used for this CT. COMPARISON: Chest x-ray 11/12/2017, PET/CT 65 07/17/2017, CT chest 09/16/2017 FINDINGS: A pleural catheter is seen with the tip directed medially near the left lung apex. An implanted central catheter is seen with the tip in the SVC. There is diffuse opacification of the majority of the left hemithorax, with mild sparing of the left lung apex. There is a small left pleural effusion, seen predominantly at the left lung base in a subpulmonic location and laterally. There is some volume loss within the left lung. There has been significant progression from the previous CT of 09/16/2017. Mild emphysematous changes are seen within the right lung. Normal heart and pericardium. Mild coronary artery calcifications are present. There is continued fullness in the left hilum, difficult to measure accurately due to adjacent lung consolidation, which appears more prominent than on comparison study. Hilar and mediastinal structures are not well delineated in the absence of intravenous contrast. There is a small nodular density within the upper trachea towards the right. This may represent a mass or adherent debris. There is occlusion of the left mainstem bronchus. Normal unenhanced pulmonary arteries. There is mild calcification of the aortic arch. Normal osseous structures. A G-tube is partially visualized. CT/Chest without Contrast IMPRESSION: Progressive opacification of the left hemithorax with only a small amount of aeration within the left upper lobe. Ill-defined hilar density, consistent with mass/adenopathy. Volume loss within the left chest with mediastinal shift towards the left. Small nodular density along the right side of the trachea may represent adherent debris or a mass. Occlusion of the left mainstem bronchus. Small left pleural effusion with a pleural catheter in place. Electronically Signed: Steve Marquez DO at 9:51 EDT Tel , Service support ,
--- NOTE | 2017-11-12 07:47 | PCM.PROGNOTE ---
Patient Problems: Active and Suspected Problems (Last Reviewed 11/06/17 @ 15:29 by Lotus Lemos RN) Atrial fibrillation and flutter (Acute) Pleural effusion (Acute) Subjective: Chief complaint: Follow-up after admission for recurrent left-sided pleural effusion, acute on chronic anemia A. fib with RVR. Patient seen and examined. No acute events overnight. He mentioned that the chest pain improved as well as shortness of breath. He complained of insertion site of the Pleurx catheter. Denied palpitation, dizziness or lightheadedness. No cough or sputum production. He has been in sinus rhythm, rate controlled, blood pressure stable, pulse ox is 95% on 2 L of oxygen. - Physical Exam General: Alert, Oriented x3, Cooperative, No apparent distress HEENT: Atraumatic, PERRLA, EOMI, Normocephalic Oral: Moist Mucosa, No Gingival or Mucosal Lesions/ Ulcerations Neck: Supple, No JVD, Negative Carotid Bruits, Trachea Midline, Thyroid Normal Size and Texture Lungs: No rhonchi, No wheeze, No rales, Diminished, - - Decreased breath sounds on the left base, otherwise clear. Cardiovascular: Regular rate, Regular Rhythm, Normal S1, Normal S2, PMI Normal Abdomen: Bowel Sounds Present, Soft, Non Tender, Non-Distended, No Hepato-splenomegaly Extremities: No clubbing, No cyanosis, No edema Skin: No rashes, No breakdown Lymphatic: No Cervical, Supraclavicular, or Inguinal Adenopathy Neurological: Cranial nerves II-XII grossly intact, Neuro grossly intact Psych/Mental Status: Normal Affect, Appropriate, Alert and oriented to time, place, person, mood and affect Vital Signs Temp Pulse Resp BP Pulse Ox 98.9 F 74 20 H 107/59 L 95 11/12/17 02:00 11/12/17 07:00 11/12/17 07:00 11/12/17 07:00 11/12/17 07:00 Oxygen Flow Rate (L/min) 2 Oxygen Delivery Method Nasal Cannula Weight: 121 lb 0.54 oz Body Mass Index (BMI) 18.9 Intake and Output for Last 24 Hours 11/10/17 11/11/17 11/12/17 23:59 23:59 23:59 Intake Total 243 / 243 4263 / 4263 154 / 154 Output Total 1979 / 1979 400 / 400 Balance 243 / 243 2283 / 2283 -246 / -246 Microbiology Past 72 Hours 11/11/17 Unknown Gram Stain - Final Aspirate - Liquid 11/10/17 19:42 Gram Stain - Final Sputum, Expectorated/Coughed Respiratory Culture - Preliminary Laboratory Tests Past 24 Hrs 11/12/17 04:35 Hgb 8.0 L Hct 25.9 L Clinical Impression(s) from Imaging Studies Chest X-Ray 11/10/17 09:38 IMPRESSION: Progressive pleural parenchymal changes at the left lung base with volume loss in the left hemithorax. Electronically Signed: Yosef Blevins MD at 10:26 EDT Tel [phone], Service support , Chest X-Ray 11/11/17 11:37 IMPRESSION: New left pleural catheter in place. No pneumothorax. There may be some increasing left upper lobe airspace disease. Electronically Signed: Steve Marquez DO at 12:19 EDT Tel , Service support , Medical Necessity - Tobacco Use Smoking Status: Former smoker Tobacco Use: Cigarettes - [id number]-edom history Assessment/Plan All Active Problems (Last Reviewed 11/06/17 @ 15:29 by Lotus Lemos RN) Atrial fibrillation and flutter (Acute) Pleural effusion (Acute) This is a 61 years old male patient presented to the emergency room because of anterior chest pain, left lateral chest pain and shortness of breath, found to have worsening left side pleural effusion in context of recent diagnosis of non-small cell lung cancer. During this hospital stay, he developed A. fib with RVR. #1 worsening left pleural effusion: Status post incision of left Pleurx catheter. Pulse ox is 95% on 2 L of oxygen.. He had recent left thoracentesis on November 07, 2017, 530 mL of blood-tinged fluid was drained. Pleural fluid analysis reviewed, no pleural fluid protein, albumin or LDH performed. Stat CT scan chest ordered by neurosurgery, will follow. #2 recent diagnosis of non-small cell lung cancer: Status post endoscopic endobronchial ultrasound with biopsies, biopsy revealed moderately differentiated non-small cell lung carcinoma, in favor of squamous cell carcinoma. The plan was to start him on chemotherapy today, now would be postponed. Plan as above. #3 chest pain: He has no more chest pain, improved. Repeat EKG today reveals no acute ischemic changes. Troponin is negative ?3. 2D echocardiogram revealed ejection fraction of 55%, other findings reviewed. #4 Newly diagnosed paroxysmal A. fib/flutter: He is on IV Cardizem drip as well as IV amiodarone drip. He converted back to sinus rhythm, rate is controlled, blood pressure stable. 2D echocardiogram revealed ejection fraction Serum sodium, potassium as well as magnesium are normal. TSH was normal 4 days ago. He is not on anticoagulation because of blood-tinged pleural effusion. Cardiology on the case. #5 right ear pain: According to ENT, this is due to referred otalgia secondary to nonhealing mandible. He does have a ruptured visit in the right ear canal which is attributed to coughing. This will heal without interventions according to ENT. #6 acute on chronic anemia: It is normocytic anemia, likely because of anemia chronic disease secondary to cancer. Baseline hemoglobin has been fluctuating around 11-12 g/dL. today's hemoglobin is 8.1 g/dL, it is the first time has been this low. No indication for transfusion. Plan to transfuse if hemoglobin drops below 8 g/dL. 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 #8 chronic dysphagia: Status post PEG tube placement, tolerating tube feeds. #9 DVT prophylaxis: SCDs. This note was generated with [employer] dictation software. It may contain incorrect words, spelling, and punctuation that were not noted in checking the note before signing. Code Visit Inpatient E&M: 26735 Subs Hosp L2
--- NOTE | 2017-11-12 07:54 | PN_ITS ---
Patient Problems: Active and Suspected Problems (Last Reviewed 11/06/17 @ 15:29 by Lotus Lemos RN) Atrial fibrillation and flutter (Acute) Pleural effusion (Acute) Subjective: Chief complaint: Follow-up after admission for recurrent left-sided pleural effusion, acute on chronic anemia A. fib with RVR. Patient seen and examined. No acute events overnight. He mentioned that the chest pain improved as well as shortness of breath. He complained of insertion site of the Pleurx catheter. Denied palpitation, dizziness or lightheadedness. No cough or sputum production. He has been in sinus rhythm, rate controlled, blood pressure stable, pulse ox is 95% on 2 L of oxygen. - Physical Exam General: Alert, Oriented x3, Cooperative, No apparent distress HEENT: Atraumatic, PERRLA, EOMI, Normocephalic Oral: Moist Mucosa, No Gingival or Mucosal Lesions/ Ulcerations Neck: Supple, No JVD, Negative Carotid Bruits, Trachea Midline, Thyroid Normal Size and Texture Lungs: No rhonchi, No wheeze, No rales, Diminished, - - Decreased breath sounds on the left base, otherwise clear. Cardiovascular: Regular rate, Regular Rhythm, Normal S1, Normal S2, PMI Normal Abdomen: Bowel Sounds Present, Soft, Non Tender, Non-Distended, No Hepato- splenomegaly Extremities: No clubbing, No cyanosis, No edema Skin: No rashes, No breakdown Lymphatic: No Cervical, Supraclavicular, or Inguinal Adenopathy Neurological: Cranial nerves II-XII grossly intact, Neuro grossly intact Psych/Mental Status: Normal Affect, Appropriate, Alert and oriented to time, place, person, mood and affect Vital Signs Temp Pulse Resp BP Pulse Ox 98.9 F 74 20 H 107/59 L 95 11/12/17 02:00 11/12/17 07:00 11/12/17 07:00 11/12/17 07:00 11/12/17 07:00 Oxygen Flow Rate (L/min) 2 Oxygen Delivery Method Nasal Cannula Weight: 121 lb 0.54 oz Body Mass Index (BMI) 18.9 Intake and Output for Last 24 Hours 11/10/17 11/11/17 11/12/17 23:59 23:59 23:59 Intake Total 243 / 243 4263 / 4263 154 / 154 Output Total 1979 / 1979 400 / 400 Balance 243 / 243 2283 / 2283 -246 / -246 Microbiology Past 72 Hours 11/11/17 Unknown Gram Stain - Final Aspirate - Liquid 11/10/17 19:42 Gram Stain - Final Sputum, Expectorated/Coughed Respiratory Culture - Preliminary Laboratory Tests Past 24 Hrs 11/12/17 04:35 Hgb 8.0 L Hct 25.9 L Clinical Impression(s) from Imaging Studies Chest X-Ray 11/10/17 09:38 IMPRESSION: Progressive pleural parenchymal changes at the left lung base with volume loss in the left hemithorax. Electronically Signed: Yosef Blevins MD at 10:26 EDT Tel [phone], Service support , Chest X-Ray 11/11/17 11:37 IMPRESSION: New left pleural catheter in place. No pneumothorax. There may be some increasing left upper lobe airspace disease. Electronically Signed: Steve Marquez DO at 12:19 EDT Tel , Service support , Medical Necessity - Tobacco Use Smoking Status: Former smoker Tobacco Use: Cigarettes - [id number] history Assessment/Plan All Active Problems (Last Reviewed 11/06/17 @ 15:29 by Lotus Lemos RN) Atrial fibrillation and flutter (Acute) Pleural effusion (Acute) This is a 61 years old male patient presented to the emergency room because of anterior chest pain, left lateral chest pain and shortness of breath, found to have worsening left side pleural effusion in context of recent diagnosis of non- small cell lung cancer. During this hospital stay, he developed A. fib with RVR. #1 worsening left pleural effusion: Status post incision of left Pleurx catheter. Pulse ox is 95% on 2 L of oxygen.. He had recent left thoracentesis on November 07, 2017, 530 mL of blood-tinged fluid was drained. Pleural fluid analysis reviewed, no pleural fluid protein, albumin or LDH performed. Stat CT scan chest ordered by neurosurgery, will follow. #2 recent diagnosis of non-small cell lung cancer: Status post endoscopic endobronchial ultrasound with biopsies, biopsy revealed moderately differentiated non-small cell lung carcinoma, in favor of squamous cell carcinoma. The plan was to start him on chemotherapy today, now would be postponed. Plan as above. #3 chest pain: He has no more chest pain, improved. Repeat EKG today reveals no acute ischemic changes. Troponin is negative ?3. 2D echocardiogram revealed ejection fraction of 55%, other findings reviewed. #4 Newly diagnosed paroxysmal A. fib/flutter: He is on IV Cardizem drip as well as IV amiodarone drip. He converted back to sinus rhythm, rate is controlled, blood pressure stable. 2D echocardiogram revealed ejection fraction Serum sodium, potassium as well as magnesium are normal. TSH was normal 4 days ago. He is not on anticoagulation because of blood-tinged pleural effusion. Cardiology on the case. #5 right ear pain: According to ENT, this is due to referred otalgia secondary to nonhealing mandible. He does have a ruptured visit in the right ear canal which is attributed to coughing. This will heal without interventions according to ENT. #6 acute on chronic anemia: It is normocytic anemia, likely because of anemia chronic disease secondary to cancer. Baseline hemoglobin has been fluctuating around 11-12 g/dL. today's hemoglobin is 8.1 g/dL, it is the first time has been this low. No indication for transfusion. Plan to transfuse if hemoglobin drops below 8 g/dL. 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 #8 chronic dysphagia: Status post PEG tube placement, tolerating tube feeds. #9 DVT prophylaxis: SCDs. This note was generated with [employer] dictation software. It may contain incorrect words, spelling, and punctuation that were not noted in checking the note before signing. Code Visit Inpatient E&M: 25723 Subs Hosp L2
[2017-11-12] MEDS: 0.9% Normal Saline 1,000 ML 75 ML IV (08:30)
[2017-11-12] MEDS: LORazepam 0.5 MG Tablet PO (08:30)
--- NOTE | 2017-11-12 10:20 | PCM.PROGNOTE ---
Patient Problems: Active and Suspected Problems (Last Reviewed 11/06/17 @ 15:29 by Lotus Lemos RN) Atrial fibrillation and flutter (Acute) Pleural effusion (Acute) Subjective: The patient was seen and examined. His breathing feels about the same. Having pain to insertion site of chest tube. Nursing staff reports issues with chest tube prior to CT, but now appears to be draining appropriately. Objective: Recent lab and culture data reviewed. Hemoglobin remained stable at 8. Preliminary sputum culture showing mixed normal respiratory iraj. Pleural fluid analysis results are pending. Chest CT without contrast 11/12/17 shows a pleural catheter in place near the left lung apex, diffuse opacification of the majority of the left hemithorax with mild sparing of the left lung apex, small left pleural effusion, volume loss within the left lung with mediastinal shift towards the left, significant progression from previous CT of September 16, 2017. Small nodular density along the right side of the trachea that may represent adherent debris or mass, occlusion of the left mainstem bronchus, ill-defined hilar density, consistent with mass/adenopathy. - Physical Exam General: Alert, Oriented x3, Cooperative, No apparent distress HEENT: Atraumatic, Normocephalic Oral: Moist Mucosa, No Gingival or Mucosal Lesions/ Ulcerations Neck: Supple Lungs: No rhonchi, No wheeze, Diminished Cardiovascular: Regular rate, Regular Rhythm, Normal S1, Normal S2, No murmurs, No rub noted, No Gallop Abdomen: Bowel Sounds Present, Soft, Non Tender Extremities: No cyanosis, No edema Skin: - - no changes from previous Musculoskeletal: No Tenderness to Palpation of Joints or Extremities Lymphatic: No Cervical, Supraclavicular, or Inguinal Adenopathy Neurological: Neuro grossly intact Psych/Mental Status: Alert and oriented to time, place, person, mood and affect Vital Signs Temp Pulse Resp BP Pulse Ox 98.7 F 77 17 101/75 97 11/12/17 08:00 11/12/17 08:00 11/12/17 08:00 11/12/17 08:00 11/12/17 08:00 Oxygen Flow Rate (L/min) 2 Oxygen Delivery Method Nasal Cannula Weight: 121 lb 0.54 oz Body Mass Index (BMI) 18.9 Intake and Output for Last 24 Hours 11/10/17 11/11/17 11/12/17 23:59 23:59 23:59 Intake Total 243 / 243 4263 / 4263 184 / 184 Output Total 1979 / 1979 400 / 400 Balance 243 / 243 2283 / 2283 -216 / -216 Microbiology Past 72 Hours 11/11/17 Unknown Gram Stain - Final Aspirate - Liquid 11/10/17 19:42 Gram Stain - Final Sputum, Expectorated/Coughed Respiratory Culture - Preliminary Laboratory Tests Past 24 Hrs 11/12/17 04:35 Hgb 8.0 L Hct 25.9 L Medical Necessity - Tobacco Use Smoking Status: Former smoker Tobacco Use: Cigarettes - [id number] history Assessment/Plan All Active Problems (Last Reviewed 11/06/17 @ 15:29 by Lotus Lemos, MARIO) Atrial fibrillation and flutter (Acute) Pleural effusion (Acute) RECOMMENDATIONS 1. Oxygen supplementation to keep saturations greater than 90% 2. Encourage incentive spirometer 3. Increase activity as tolerated 4. Continue PRN aerosols 5. Continue Cardizem and Amiodarone gtt per cardiology recommendations 6. Continue nutrition through PEG tube 7. Possible transfer to tertiary care center for interventional radiology evaluation IMPRESSIONS 1. Newly diagnosed left lung cancer, hilar mass Follows with Dr. Robles, had EBUS September 2017 with diagnosis of non-small cell lung cancer. Patient with recent thoracentesis on 11/06 and removal of approximate 530 mL of bloody fluid. Current imaging showing rapid reaccumulation of the fluid, highly suspicious for recurrent malignant effusion. Pleurx catheter was placed on 11/11. Not much drainage but fluid accumulation likely compensatory. A CT of the chest was obtained this morning and shows progression of disease with occlusion of left mainstem bronchus and mediastinal shift to the left. Discussed w/Dr. Oliver, possible transfer to tertiary [facility] interventional radiology evaluation and possible mechanical opening/stenting of occlusion, oncology plans for radiation regardless. 2. Chronic anemia/dysphagia/history of laryngeal cancer status post radiation/tobacco dependence in remission Complicates care, management, recovery, and prognosis. May benefit from a swallowing evaluation. Encouraged ongoing smoking cessation. No evidence of acute bleed at this time. Thank you for the opportunity to participate in this patient's care, please do not hesitate contact us with any further questions or concerns. This note was generated with [employer] dictation software. It may contain incorrect words, spelling, and punctuation that were not noted in checking the note before signing.
--- NOTE | 2017-11-12 11:05 | PN_ITS ---
Patient Problems: Active and Suspected Problems (Last Reviewed 11/06/17 @ 15:29 by Lotus Lemos RN) Atrial fibrillation and flutter (Acute) Pleural effusion (Acute) Subjective: The patient was seen and examined. His breathing feels about the same. Having pain to insertion site of chest tube. Nursing staff reports issues with chest tube prior to CT, but now appears to be draining appropriately. Objective: Recent lab and culture data reviewed. Hemoglobin remained stable at 8. Preliminary sputum culture showing mixed normal respiratory iraj. Pleural fluid analysis results are pending. Chest CT without contrast 11/12/17 shows a pleural catheter in place near the left lung apex, diffuse opacification of the majority of the left hemithorax with mild sparing of the left lung apex, small left pleural effusion, volume loss within the left lung with mediastinal shift towards the left, significant progression from previous CT of September 16, 2017. Small nodular density along the right side of the trachea that may represent adherent debris or mass, occlusion of the left mainstem bronchus, ill-defined hilar density, consistent with mass/ adenopathy. - Physical Exam General: Alert, Oriented x3, Cooperative, No apparent distress HEENT: Atraumatic, Normocephalic Oral: Moist Mucosa, No Gingival or Mucosal Lesions/ Ulcerations Neck: Supple Lungs: No rhonchi, No wheeze, Diminished Cardiovascular: Regular rate, Regular Rhythm, Normal S1, Normal S2, No murmurs, No rub noted, No Gallop Abdomen: Bowel Sounds Present, Soft, Non Tender Extremities: No cyanosis, No edema Skin: - - no changes from previous Musculoskeletal: No Tenderness to Palpation of Joints or Extremities Lymphatic: No Cervical, Supraclavicular, or Inguinal Adenopathy Neurological: Neuro grossly intact Psych/Mental Status: Alert and oriented to time, place, person, mood and affect Vital Signs Temp Pulse Resp BP Pulse Ox 98.7 F 77 17 101/75 97 11/12/17 08:00 11/12/17 08:00 11/12/17 08:00 11/12/17 08:00 11/12/17 08:00 Oxygen Flow Rate (L/min) 2 Oxygen Delivery Method Nasal Cannula Weight: 121 lb 0.54 oz Body Mass Index (BMI) 18.9 Intake and Output for Last 24 Hours 11/10/17 11/11/17 11/12/17 23:59 23:59 23:59 Intake Total 243 / 243 4263 / 4263 184 / 184 Output Total 1979 / 1979 400 / 400 Balance 243 / 243 2283 / 2283 -216 / -216 Microbiology Past 72 Hours 11/11/17 Unknown Gram Stain - Final Aspirate - Liquid 11/10/17 19:42 Gram Stain - Final Sputum, Expectorated/Coughed Respiratory Culture - Preliminary Laboratory Tests Past 24 Hrs 11/12/17 04:35 Hgb 8.0 L Hct 25.9 L Medical Necessity - Tobacco Use Smoking Status: Former smoker Tobacco Use: Cigarettes - [id number] history Assessment/Plan All Active Problems (Last Reviewed 11/06/17 @ 15:29 by Lotus Lemos, MARIO) Atrial fibrillation and flutter (Acute) Pleural effusion (Acute) RECOMMENDATIONS 1. Oxygen supplementation to keep saturations greater than 90% 2. Encourage incentive spirometer 3. Increase activity as tolerated 4. Continue PRN aerosols 5. Continue Cardizem and Amiodarone gtt per cardiology recommendations 6. Continue nutrition through PEG tube 7. Possible transfer to tertiary care center for interventional radiology evaluation IMPRESSIONS 1. Newly diagnosed left lung cancer, hilar mass Follows with Dr. Robles, had EBUS September 2017 with diagnosis of non-small cell lung cancer. Patient with recent thoracentesis on 11/06 and removal of approximate 530 mL of bloody fluid. Current imaging showing rapid reaccumulation of the fluid, highly suspicious for recurrent malignant effusion. Pleurx catheter was placed on 11/11. Not much drainage but fluid accumulation likely compensatory. A CT of the chest was obtained this morning and shows progression of disease with occlusion of left mainstem bronchus and mediastinal shift to the left. Discussed w/Dr. Oliver, possible transfer to tertiary [facility] interventional radiology evaluation and possible mechanical opening/stenting of occlusion, oncology plans for radiation regardless. 2. Chronic anemia/dysphagia/history of laryngeal cancer status post radiation/ tobacco dependence in remission Complicates care, management, recovery, and prognosis. May benefit from a swallowing evaluation. Encouraged ongoing smoking cessation. No evidence of acute bleed at this time. Thank you for the opportunity to participate in this patient's care, please do not hesitate contact us with any further questions or concerns. This note was generated with [employer] dictation software. It may contain incorrect words, spelling, and punctuation that were not noted in checking the note before signing.
--- NOTE | 2017-11-12 11:15 | PCM.PN.SRG ---
Patient Problems: Active and Suspected Problems (Last Reviewed 11/06/17 @ 15:29 by Lotus Lemos RN) Atrial fibrillation and flutter (Acute) Pleural effusion (Acute) Subjective: no real improvement in shortness of breath - Physical Exam General: Alert, Oriented x3 Lungs: Diminished - left side, - - serous fluid in CT, total output in reservoir - 500cc (additional 200 overnight) Vital Signs Temp Pulse Resp BP Pulse Ox 98.7 F 83 26 H 120/73 97 11/12/17 09:00 11/12/17 11:00 11/12/17 11:00 11/12/17 11:00 11/12/17 11:00 Oxygen Flow Rate (L/min) 2 Oxygen Delivery Method Nasal Cannula Weight: 54.9 kg Body Mass Index (BMI) 18.9 Intake and Output for Last 24 Hours 11/10/17 11/11/17 11/12/17 23:59 23:59 23:59 Intake Total 243 / 243 4263 / 4263 184 / 184 Output Total 1979 / 1979 400 / 400 Balance 243 / 243 2283 / 2283 -216 / -216 Microbiology Past 72 Hours 11/11/17 Unknown Gram Stain - Final Aspirate - Liquid Wound Culture - Preliminary No growth-Final to follow 11/10/17 19:42 Gram Stain - Final Sputum, Expectorated/Coughed Respiratory Culture - Preliminary Staphylococcus aureus Laboratory Tests Past 24 Hrs 11/12/17 04:35 Hgb 8.0 L Hct 25.9 L Medical Necessity - Tobacco Use Smoking Status: Former smoker Tobacco Use: Cigarettes - [id number] history Assessment/Plan All Active Problems (Last Reviewed 11/06/17 @ 15:29 by Lotus Lemos RN) Atrial fibrillation and flutter (Acute) Pleural effusion (Acute) recurring left pleural effusion-need for tunneled pleural catheter POD # 1 s/p left tunneled thoracic catheter/Pleurx catheter. The patient CXR still demonstrated likely residual fluid versus non re-expanded lung. THe trachea is slightly shifted to the left, suggesting poor lung expansion. Will check CT scan, continue CT to 25cm H2O suction.
--- NOTE | 2017-11-12 12:28 | PCM.DC.SUM ---
Discharge Date and Diagnosis Date of Admission: 11/10/17 Date of Discharge: 11/12/17 - Primary Discharge Diagnosis Active and Suspected Problems (Last Reviewed 11/06/17 @ 15:29 by Lotus Lemos, RN) #1 worsening left-sided pleural effusion. #2 newly diagnosed paroxysmal A. fib/flutter with RVR. #3 recent diagnosis of non-small cell lung cancer. #4 occlusion of the left main bronchus. - Secondary Discharge Diagnosis Chronic Problems (Last Reviewed 11/06/17 @ 15:29 by Lotus Lemos, RN) Chronic anemia (Chronic) Dysphagia (Chronic) Non-small cell carcinoma of left lung, stage 3 (Chronic) History of laryngeal cancer (Chronic) Pulmonary nodule, left (Chronic) Tobacco dependence in remission (Chronic) PEG (percutaneous endoscopic gastrostomy) status (Chronic) Hospital Course and Treatment Imaging Results: 11/12/17 05:00 CXR [Chest 1 View (Portable)] [RAD] Urgent 11/12/17 06:54 Chest without Contrast [CT] Urgent Clinical Impression(s) from Imaging Studies Chest X-Ray 11/10/17 09:38 IMPRESSION: Progressive pleural parenchymal changes at the left lung base with volume loss in the left hemithorax. Electronically Signed: Yosef Blevins MD at 10:26 EDT Tel [phone], Service support , Chest X-Ray 11/11/17 11:37 IMPRESSION: New left pleural catheter in place. No pneumothorax. There may be some increasing left upper lobe airspace disease. Electronically Signed: Steve Marquez DO at 12:19 EDT Tel , Service support , Chest X-Ray 11/12/17 05:00 IMPRESSION: Increasing opacification of the left hemithorax, with evidence of some volume loss. This is likely a combination of atelectasis, consolidation, pleural effusion. Life support tubes and catheters, as detailed above. Electronically Signed: Steve Marquez DO at 8:10 EDT Tel , Service support , Chest CT 11/12/17 06:54 IMPRESSION: Progressive opacification of the left hemithorax with only a small amount of aeration within the left upper lobe. Ill-defined hilar density, consistent with mass/adenopathy. Volume loss within the left chest with mediastinal shift towards the left. Small nodular density along the right side of the trachea may represent adherent debris or a mass. Occlusion of the left mainstem bronchus. Small left pleural effusion with a pleural catheter in place. Electronically Signed: Steve DO Jimmy at 9:51 EDT Tel , Service support , Dr. Chaudhary, general surgery. Dr. Arreaga, cardiology. Dr. Oliver, pulmonology. Dr. trejo, ENT. Procedures: 2-D Echocardiogram, EKG, - - Insertion of left Pleurx catheter for left pleural effusion. Summary of Care Provided: The patient is a 61 year old M admitted because of anterior chest pain, left lateral chest pain or shortness of breath and he was found to have increasing left side pleural effusion in context of recent has diagnosis of non-small cell lung cancer. He had recent endoscopic endobronchial ultrasound with biopsies that revealed moderately differentiated non-small cell lung carcinoma in favor of squamous cell carcinoma. He had thoracentesis a few days before admission but he came in back because of worsening shortness of breath. Chest x-ray revealed significantly increasing left-sided pleural effusion. General surgery consulted and he underwent insertion of left Pleurx catheter for drainage of the left pleural effusion. After admission to the hospital, he went into A. fib with RVR, was started on IV Cardizem as well as IV amiodarone drip for rate control. He converted back to sinus rhythm and his rate was controlled. His 2D echocardiogram revealed ejection fraction of 55%, RVSP of 31 and no significant valvular heart disease. Initially and after incision of the left Pleurx catheter, 500 cc of blood-tinged fluid drained and then no more fluid came out. CT scan chest performed and revealed progressive opacification of the left hemithorax and occlusion of the left main bronchus. There was a concern that this new occlusion of the left main bronchus is due to tumor growth. Dr. Oliver spoke with Dr. Reed Denny and decision was made to transfer the patient to [facility] for intervention regarding the occlusion of the left main bronchus. During this hospital stay, she complained of right ear pain. ENT consulted and stated that this is due to referred otalgia secondary to nonhealing mandible and there is no need for any interventions. Patient transferred to [facility] in a stable medical condition for further management and treatment regarding the complete occlusion of the right main bronchus as well as the left pleural effusion and A. fib with RVR. Home Medications: Medications to take at Discharge Albuterol IH (ProAir) [Proair Hfa] 2 puff INHALATION Q6H PRN 11/10/17 Dexamethasone [Decadron] 1 tablet PO DAILY@0800 11/10/17 Levothyroxine [Synthroid] 1 tablet PO DAILY 11/10/17 Lorazepam [Ativan] 1 tablet PO BID PRN 11/10/17 Oxycodone HCl/Acetaminophen [Percocet 5-325] 1 tablet PO Q6H PRN 11/10/17 Primary Care Physician: Allison Sarmiento, SHILA-C [Primary Care Provider] - Disposition: Acute care Hospital Minutes spent on discharge:: 36 Patient Condition:: Guarded Medical Necessity - Tobacco Use Smoking Status: Former smoker Tobacco Use: Cigarettes - [id number] history Meaningful Use Info Meaningful Use Diagnoses (Choose all that apply): None applicable Code Visit Inpatient E&M: 92453 Disch Hosp
[2017-11-12] MEDS: dilTIAZem 30 MG Tablet PO (12:35)
--- NOTE | 2017-11-12 18:29 | PCM.PN.CARD ---
Subjectve: The patient was evaluated earlier this day. He appear to be symptomatically improved overall since his chest tube placement. However he still had some residual left-sided chest discomfort. He had no other acute complaints. Objective: Vital Signs Temp Pulse Resp BP Pulse Ox 98.7 F 81 18 118/66 96 11/12/17 09:00 11/12/17 13:00 11/12/17 13:00 11/12/17 13:00 11/12/17 13:00 Oxygen Flow Rate (L/min) 2 Oxygen Delivery Method Nasal Cannula Weight: 121 lb 0.54 oz Body Mass Index (BMI) 18.9 Intake and Output for Last 24 Hours 11/10/17 11/11/17 11/12/17 23:59 23:59 23:59 Intake Total 243 / 243 4263 / 4263 585.6 / 585.6 Output Total 1979 / 1979 645 / 645 Balance 243 / 243 2283 / 2283 -59.4 / -59.4 General: Awake, Alert, Oriented x 3, Cooperative, Ill Appearing Neck: No JVD Lungs: Diminished Reinaldo Bases Cardiovascular: Regular Rhythm, Normal S1, Normal S2 Abdomen: Bowel Sounds Present, Soft, Non Tender Extremities: No edema 11/12/17 04:35: Hgb 8.0 L, Hct 25.9 L Rhythm: Sinus rhythm EKG: Sinus rhythm Chest CT Scan: Radiology report noted Medical Necessity - Tobacco Use Smoking Status: Former smoker Tobacco Use: Cigarettes - [id number] history Assessment/Plan 1. Paroxysmal atrial fibrillation/flutter The patient has demonstrated evidence of paroxysmal atrial fibrillation/flutter. The etiology may be multifactorial. This may be related to a combination of the patient's age, underlying pulmonary disease process, however, at the same time he needs to be monitored for other obvious etiologies. At the present time, on his rate control therapy and antiarrhythmic therapy, he is back in sinus rhythm. His IV diltiazem will be converted to oral diltiazem and his IV amiodarone will be converted to oral amiodarone therapy. 2. Pleural effusion He does have a pleural effusion. He is now s/p a chest tube placement. 3. Lung carcinoma He is pending further evaluation care by hematology oncology with chemotherapy. Based upon his ongoing pulmonary issues / findings on his chest CT scan he is being transferred to [facility] for further evaluation / care. 4. Anemia The patient does appear to have anemia. This may be anemia of chronic disease. He will need to be monitored for other etiologies. In the meantime depending upon his H&H, if it declines, he may need PRBCs to assist in his oxygen carrying capacity. Comment: The patient's case has been discussed and reviewed with patient and members of the [facility] hospitalist staff. This note was generated with [employer] dictation software. It may contain incorrect words, spelling, and punctuation that were not noted in checking the note before signing.
--- NOTE | 2017-11-12 18:34 | PN.CARD_ITS ---
Subjectve: The patient was evaluated earlier this day. He appear to be symptomatically improved overall since his chest tube placement. However he still had some residual left-sided chest discomfort. He had no other acute complaints. Objective: Vital Signs Temp Pulse Resp BP Pulse Ox 98.7 F 81 18 118/66 96 11/12/17 09:00 11/12/17 13:00 11/12/17 13:00 11/12/17 13:00 11/12/17 13:00 Oxygen Flow Rate (L/min) 2 Oxygen Delivery Method Nasal Cannula Weight: 121 lb 0.54 oz Body Mass Index (BMI) 18.9 Intake and Output for Last 24 Hours 11/10/17 11/11/17 11/12/17 23:59 23:59 23:59 Intake Total 243 / 243 4263 / 4263 585.6 / 585.6 Output Total 1979 / 1979 645 / 645 Balance 243 / 243 2283 / 2283 -59.4 / -59.4 General: Awake, Alert, Oriented x 3, Cooperative, Ill Appearing Neck: No JVD Lungs: Diminished Reinaldo Bases Cardiovascular: Regular Rhythm, Normal S1, Normal S2 Abdomen: Bowel Sounds Present, Soft, Non Tender Extremities: No edema 11/12/17 04:35: Hgb 8.0 L, Hct 25.9 L Rhythm: Sinus rhythm EKG: Sinus rhythm Chest CT Scan: Radiology report noted Medical Necessity - Tobacco Use Smoking Status: Former smoker Tobacco Use: Cigarettes - [id number] history Assessment/Plan 1. Paroxysmal atrial fibrillation/flutter The patient has demonstrated evidence of paroxysmal atrial fibrillation/ flutter. The etiology may be multifactorial. This may be related to a combination of the patient's age, underlying pulmonary disease process, however , at the same time he needs to be monitored for other obvious etiologies. At the present time, on his rate control therapy and antiarrhythmic therapy, he is back in sinus rhythm. His IV diltiazem will be converted to oral diltiazem and his IV amiodarone will be converted to oral amiodarone therapy. 2. Pleural effusion He does have a pleural effusion. He is now s/p a chest tube placement. 3. Lung carcinoma He is pending further evaluation care by hematology oncology with chemotherapy. Based upon his ongoing pulmonary issues / findings on his chest CT scan he is being transferred to [facility] for further evaluation / care. 4. Anemia The patient does appear to have anemia. This may be anemia of chronic disease. He will need to be monitored for other etiologies. In the meantime depending upon his H&H, if it declines, he may need PRBCs to assist in his oxygen carrying capacity. Comment: The patient's case has been discussed and reviewed with patient and members of the [facility] hospitalist staff. This note was generated with [employer] dictation software. It may contain incorrect words, spelling, and punctuation that were not noted in checking the note before signing.
== END 2017-11-12 13:55 | disposition short-term general hospital (02) | DRG 181 ==
LOC: ED 12:07 → PCU 13:36
PROVIDERS: Family Medicine; Surgery; Admitting Provider Hospitalist; Emergency Provider Emergency Medicine; Family Provider Nurse Practitioner Family; PCP Nurse Practitioner Family; Visit Provider Hospitalist
PROC: 0W9B30Z Drainage of Left Pleural Cavity with Drainage Device, Percutaneous Approach (ICD-10-PCS; CPT 32550; principal; 2017-11-11 10:15)
DX: C34.02 Malignant neoplasm of left main bronchus (principal); J90 Pleural effusion, not elsewhere classified; R64 Cachexia; Z68.1 Body mass index [BMI] 19.9 or less, adult; I48.92 Unspecified atrial flutter; Z93.1 Gastrostomy status; F17.201 Nicotine dependence, unspecified, in remission; D64.9 Anemia, unspecified; Z85.21 Personal history of malignant neoplasm of larynx; Z87.891 Personal history of nicotine dependence; H92.01 Otalgia, right ear; I48.0 Paroxysmal atrial fibrillation; Z92.3 Personal history of irradiation; R13.10 Dysphagia, unspecified
CPT/HCPCS: 32555; 71045; 71250; 80048; 81001; 83735; 83880; 84484; 85014; 85018; 85025; 85610; 85730; 87070; 87075; 87077; 87102; 87186; 87205; 87206; 88108; 88305; 88313; 88341; 88342; 89050; 93005; 93306; 94640; 97802; 97803; 99282; J7030; Q9957; A4216; C1729

== ENCOUNTER 2017-11-21 16:49 | Emergency (ER) | payer OTHER, MEDICARE, SELFPAY ==
[2017-11-06 15:18] VITALS: BMI 20.7
[2017-11-21 16:50] VITALS: BP 114/61; PULSE 101; RESP 18; TEMP 36.5; O2SAT 92; BMI 20.3
--- NOTE | 2017-11-21 17:48 | EKG12_ITS ---
Test Reason : CP Blood Pressure : / mmHG Vent. Rate : 100 BPM Atrial Rate : 100 BPM P-R Int : 124 ms QRS Dur : 086 ms QT Int : 346 ms P-R-T Axes : 099 100 081 degrees QTc Int : 446 ms Suspect arm lead reversal, interpretation assumes no reversal Normal sinus rhythm Right atrial enlargement Borderline ECG Confirmed by JOHNNY FERNANDEZ, MIKEY ([id number]), technical writer and editor JOYCE NICOLAS ([id number]) on 11/24/2017 2:14:30 PM Referred By: Allison Sarmiento Confirmed By:MIKEY TURNER MD
--- NOTE | 2017-11-21 17:50 | RAD_ITS ---
STUDY: X-RAY CHEST REASON FOR EXAM: Male, 61 years old. Chest pain. Lung cancer. TECHNIQUE: Single AP portable view of the chest. COMPARISON: 11/12/2017. FINDINGS: Complete opacification of the left hemithorax and shift of mediastinum to the left. Worsening opacification since previous study. Stable appearance of a left Mediport catheter and left indwelling pleural drain. Hyperexpansion of the right lung which is clear. Normal size heart. Normal mediastinum and tashia. Normal visualized pulmonary arteries. Normal visualized aortic arch and descending thoracic aorta. Normal visualized thoracic spine. Normal visualized ribs, clavicles, and shoulders. There is no demonstrated abnormality of the visualized soft tissue structures of the upper abdomen. RAD/Chest 1 View (Portable) IMPRESSION: Worsening, complete opacification of the left hemithorax. Electronically Signed: Humberto Love MD at 18:17 EDT , Service support ,
[2017-11-21 18:10] VITALS: BP 110/56; PULSE 87; RESP 26; O2SAT 93
[2017-11-21] MEDS: 0.9% Normal Saline 1,000 ML 150 ML IV (18:11)
[2017-11-21] MEDS: morphine 8 MG/ML Syringe IV (18:11)
[2017-11-21 18:48] LABS: Anion Gap 9 (5-15); BUN 47 mg/dL (7-18); BUN/Creat Ratio 35.1 RATIO (10-20); Calcium,Total 9.8 mg/dL (8.5-10.1); Chloride 95 mmol/L (98-107); Creatinine, Serum 1.34 mg/dL (0.70-1.30); EST Glomerular Filtration Rate 57 mL/min (>60); Est Glom Filt Rate - Afr Amer 70 mL/min (>60); Estimated Creatinine Clearance 48.28 ml/min; Glucose 127 mg/dL (74-106); Potassium 4.3 mmol/L (3.5-5.1); Sodium Level 137 mmol/L (136-145)
[2017-11-21 19:16] VITALS: O2SAT 94
[2017-11-21 19:18] LABS: Absolute Lymphocyte Count 0.21 X10^3/ul (0.83-4.51); Absolute Neutrophil Count 13.1 X10^3/uL (2.0-7.7); Hemoglobin 8.9 g/dl (13.0-16.5); Lymphocyte # 0.21 X10^3/ul (4.0); Lymphocyte % 1.5 % (19-41); Mean Corp Hgb Conc 30.7 g/gl (32-36); Mean Corpuscular Hgb 28.3 pg (27.0-32.0); Mean Corpuscular Volume 92.4 fL (80-94); Mean Platelet Vol. 9.1 fl (6.2-12.0); Monocyte# 0.61 X10^3/uL; Monocyte% 4.4 % (0-10); Neutrophil # 13.06 X10^3/uL (2.7-7.7); Neutrophil % 93.8 % (47-70); Platelet Count 506 K/mm3 (150-450); RBC Distribution Width CV 16.3 % (11.6-14.6); RBC Distribution Width SD 53.9 fl (35.1-43.9); Red Blood Count 3.14 M/mm3 (4.6-6.2); White Blood Count 13.9 K/mm3 (4.4-11.0)
[2017-11-21 19:19] LABS: Differential Indicated SCAN CRITERIA MET; POSITIVE COUNT NO; POSITIVE DIFFERENTIAL YES; POSITIVE MORPHOLOGY YES
[2017-11-21 20:00] VITALS: BP 127/68; PULSE 80; RESP 20; O2SAT 92
--- NOTE | 2017-11-21 20:01 | ED.DCSUM_ITS ---
- ER Visit Summary Date of Service: 11/21/17 Chief Complaint: Chest pain History of Present Illness: The patient is a [address] Leigh and Oanh Sarmiento. He has a history of non-small cell lung cancer that was recently diagnosed. He got his first dose of chemo yesterday. He was recently hospitalized and had a left Pleurx catheter placed for his pleural effusion. He was transferred to [facility] where he was seen by Dr. Denny and they were unable to stent his left mainstem bronchus which is a completely occluded. Patient reports that today the home health nurse came out and drained the left Pleurx catheter. States that she took off fluid much more quickly than usual and they got 250 mL off today. He states that on Friday only got 30 cc out. While she was doing this he had the onset of a sharp left-sided chest pain that is 10 at 10 worsening a 10 currently. Is worsened by deep breaths. Is relieved by nothing. He denies any ankle swelling or calf pain. Physical Examination: Vitals: Stable. Afebrile. General: Well-nourished and well-developed. Head: Normocephalic atraumatic. Neck: Supple, no lymphadenopathy. No JVD. Nontender. Cardiovascular: Regular rate and rhythm. No murmurs. Respiratory: No respiratory distress. Clear to auscultation bilaterally. Minimal erythema around the catheter site on the lower chest wall. No drainage or evidence of infection. Abdominal: Soft, nontender, nondistended, normal bowel sounds. No guarding, rebound, or peritoneal signs. Back: Nontender. Extremities: Nontender, no edema. Skin: Normal color, no rash. Neurologic: Alert and oriented ?3. Cranial nerves II through XII are intact. Normal strength and sensation. Psych: Normal affect. Test Results: EKG is sinus at 100 and is unchanged from is negative. Chem-7 is more for chloride of 95, CO2 33, BUN 47, creatinine 1.34, glucose 127. CBC is more for white count 13.9 with an H&H of 8.9-9.0, platelets of 506, 7 neutrophils 94, lymphocytes 2. Chest x-ray shows worsening opacification of left hemithorax with shift to the left. Emergency Department Course and Treatment: Patient had an IV placed. He was given Zofran IV and morphine IV. He is resting comfortably. Treatment Plan: Patient was discussed with Dr. Leigh. Given the onset of this it is likely that this is from the drainage of his pleural effusion. He will be discharged instructions to continue his Percocet for pain. He reports he has not had a bowel movement for 3 days. He is given a bottle of magnesium citrate. Instructed follow-up Dr. Leigh as previously scheduled. Return to the emergency department for any worsening symptoms. Disposition: To home in improved and stable condition. Impression: 1. Left pleural effusion. 2. Occlusion of left main stem bronchus. 3. Non-small cell lung cancer on chemotherapy. This note was generated with [employer] dictation software. It may contain incorrect words, spelling, and punctuation that were not noted in review of the chart prior to signing ED Disposition - Plan for ED Patient: Disposition: Home or Assisted Living Chief Complaint: Chest Pain Instructions: ED Effusion Pleural Referrals: Nino Leigh MD [NON-STAFF] - Keep Alexa appointment
[2017-11-21] MEDS: Ondansetron 4 MG/2 ML Vial IV (20:19)
[2017-11-21] MEDS: Magnesium Citrate 300 ML PO (20:19)
[2017-11-21] MEDS: oxyCODONE 5 MG Tablet 10 MG PO (20:19)
[2017-11-21 20:51] VITALS: BP 127/68; PULSE 71; RESP 19; O2SAT 93
== END 2017-11-21 20:52 | disposition home or self-care (01) ==
PROVIDERS: Emergency Provider Emergency Medicine; Family Provider Nurse Practitioner Family; PCP Nurse Practitioner Family
DX: J90 Pleural effusion, not elsewhere classified (principal); J98.09 Other diseases of bronchus, not elsewhere classified; C34.90 Malignant neoplasm of unspecified part of unspecified bronchus or lung; I48.91 Unspecified atrial fibrillation; I48.92 Unspecified atrial flutter; Z93.1 Gastrostomy status; Z85.21 Personal history of malignant neoplasm of larynx; Z79.899 Other long term (current) drug therapy
CPT/HCPCS: 36591; 71045; 80048; 84484; 85025; 93005; 96361; 96374; 96375; 99284; J7030; A4216; J2405

== ENCOUNTER 2017-12-07 14:47 | Inpatient (IN) | payer OTHER, MEDICARE, SELFPAY ==
[2017-11-06 15:18] VITALS: BMI 20.7
[2017-12-07 14:48] VITALS: BP 132/70; PULSE 107; RESP 18; TEMP 37.4; O2SAT 98; BMI 19.5
--- NOTE | 2017-12-07 15:07 | RAD_ITS ---
STUDY: X-RAY CHEST REASON FOR EXAM: Male, 62 years old. PT STATED HX OF LUNG CANCER, CHEMO, AND A PLEURAL CATHETER INFECTION TECHNIQUE: Frontal and lateral views of the chest. COMPARISON: 12/11/2017 FINDINGS: Chronic appearing increased interstitial lung markings. There is a left Port-A-Cath and/or mediport in place. The tip is in the superior vena caval - atrial junction. Significantly decrease in size of the previous large left pleural effusion. Presently, there is a moderate amount of pleural fluid on the left side. Left chest tube in place. There is no pneumothorax. Right lung is clear. Normal heart size. Normal mediastinum and tashia. Normal visualized pulmonary arteries. There is atherosclerotic calcification of the aortic arch with tortuosity. There are diffuse degenerative changes of the visualized thoracic spine. There is degenerative osteoarthritis of the bilateral shoulders. There is no demonstrated abnormality of the visualized soft tissue structures of the upper abdomen. RAD/Chest PA and Lateral IMPRESSION: Significantly decrease in size of the previous large left pleural effusion. Presently, there is a moderate amount of pleural fluid on the left side. Left chest tube in place. There is no pneumothorax. Right lung is clear. Electronically Signed: Jn Dubon MD at 16:00 EDT , Service support ,
--- NOTE | 2017-12-07 15:24 | ED.DCSUM_ITS ---
- ER Visit Summary Date of Service: 12/07/17 Chief Complaint: Concern for infection to pleural catheter site [] History of Present Illness: The patient is a 62 M [presents the emergency department with complaint of discomfort over the area of the pleural catheter with erythema to the chest wall. Patient states that he saw Dr. Evelio Camp 2 days ago to have the pleural catheter evaluated and was told that he would have to have it removed soon. Patient states he has not been getting any drainage from the catheter. Patient denies any increasing shortness of breath. Patient has not had fever at home. He does describe increased fatigue. Patient's last chemotherapy was 3 days ago. Patient's last radiation was 2 days ago. Patient currently being treated for non-small cell carcinoma of the lung. Patient also with history of laryngeal cancer.] Physical Examination: HEENT-PERRLA, EOMI. Cranial nerves II through XII grossly intact. TMs clear. Mucous membranes moist. No adenopathy. Cardiovascular-regular rate and rhythm without murmur or ectopy Lungs-clear to auscultation, chest wall stable without crepitus or subcu emphysema. Patient does have a left pleural catheter coming from the left anterior chest and along the tract of it subcutaneously he is tender and he has erythema laterally. No fluctuance or definite abscess noted. Abdomen-normoactive bowel sounds, soft, nontender, no rebound or rigidity, no peritoneal signs. Extremities-intact ?4, normal range of motion, normal pulses, atraumatic[] Test Results: [CBC with differential obtained showed a white blood cell count of 0.5, heme globin 7.1, hematocrit 22, platelets 79. Chemistries unremarkable. Lactate is pending. Blood cultures ordered and pending. Chest x -ray showed decreased effusion of the left chest and a left pleural catheter noted in left chest.] Emergency Department Course and Treatment: [Patient was started on Zosyn empirically in case was discussed with Dr. Evelio Chaudhary who will evaluate patient in the department. Patient also discussed with hospitalist who will admit patient.] Given the fact the patient has low-grade temperature and is neutropenic with concern for chest wall infection I feel patient needed to be admitted for further management. Treatment Plan: Admit] Disposition: [Admit] Impression: [Pancytopenia Chest wall cellulitis] This note was generated with [employer] software. It may contain incorrect words, spelling, and punctuation that were not noted in review of the chart prior to signing ED Disposition - Plan for ED Patient: Chief Complaint: Wound Referrals: Allison Sarmiento, ROBOTYPE OPERATOR-C [Primary Care Provider] -
[2017-12-07] MEDS: 0.9% Normal Saline 1,000 ML 150 ML IV ×2 (16:17→23:16)
[2017-12-07 16:19] LABS: Absolute Lymphocyte Count 0.04 X10^3/ul (0.83-4.51); Absolute Neutrophil Count 0.4 X10^3/uL (2.0-7.7); Hematocrit 22.1 % (40-54); Hemoglobin 7.1 g/dl (13.0-16.5); Lymphocyte # 0.04 X10^3/ul (4.0); Lymphocyte % 8.3 % (19-41); Mean Corp Hgb Conc 32.1 g/gl (32-36); Mean Corpuscular Hgb 28.4 pg (27.0-32.0); Mean Corpuscular Volume 88.4 fL (80-94); Mean Platelet Vol. 8.8 fl (6.2-12.0); Monocyte# 0.01 X10^3/uL; Monocyte% 2.1 % (0-10); Neutrophil # 0.42 X10^3/uL (2.7-7.7); Neutrophil % 87.5 % (47-70); Platelet Count 79 K/mm3 (150-450); RBC Distribution Width SD 55.3 fl (35.1-43.9); White Blood Count 0.5 K/mm3 (4.4-11.0)
[2017-12-07 16:20] LABS: Differential Indicated SCAN CRITERIA MET; POSITIVE COUNT YES; POSITIVE DIFFERENTIAL YES; POSITIVE MORPHOLOGY YES
[2017-12-07 16:25] LABS: Anion Gap 5 (5-15); BUN 27 mg/dL (7-18); BUN/Creat Ratio 31.7 RATIO (10-20); Calcium,Total 8.6 mg/dL (8.5-10.1); Chloride 94 mmol/L (98-107); Creatinine, Serum 0.85 mg/dL (0.70-1.30); EST Glomerular Filtration Rate 97 mL/min (>60); Est Glom Filt Rate - Afr Amer 117 mL/min (>60); Estimated Creatinine Clearance 72.39 ml/min; Glucose 117 mg/dL (74-106); Potassium 4.5 mmol/L (3.5-5.1); Sodium Level 130 mmol/L (136-145)
--- NOTE | 2017-12-07 16:39 | NURSING ---
NO LW OR POA
--- NOTE | 2017-12-07 16:44 | NURSING ---
DR SALVADOR SAMUEL
--- NOTE | 2017-12-07 16:59 | NURSING ---
MED SURG SMALL CELL LUNG CA WITH PLEURAL EFFUSION SALVADOR
[2017-12-07 17:02] LABS: Differential Comment SCANNED; Platelet Estimate MOD DEC (ADEQ)
[2017-12-07 17:07] LABS: Lactic Acid 1.4 mmol/L (0.4-2.0)
[2017-12-07 17:08] VITALS: BP 132/70; PULSE 94; RESP 16; O2SAT 97
[2017-12-07 17:09] VITALS: BP 132/70; PULSE 86; RESP 18; O2SAT 94
--- NOTE | 2017-12-07 17:09 | PCM.HP.STD ---
Problem List (1) Cellulitis Status: Acute History of Present Illness Date of Admission: 12/07/17 Chief Complaint: redness over left flank The patient is a 62 year old M with a history of small cell lung cancer s/p left chest tube placement, laryngeal cancer was admitted via the ED on 12/07/2017 with a complaint of redness, minimal swelling and tenderness over the left chest wall, just over the area of the chest tube placement. Symptoms started just 2 days ago. According to patient, he saw Dr. Briones the surgeon in his office Friday he did not have these symptoms. Friday night he noted that he was having the symptoms and he denied any fever or chills. He has had minimal drainage from the chest tube over the past couple of days. In the ED vitals were stable, and CBC with differential showed white cell count of 0.5 with hemoglobin of 7.1 and platelets of 79. Chemistries were unremarkable. Blood cultures were ordered and pending. Chest x-ray showed a decreased effusion of the left chest and a left pleural catheter noted in the left chest. Patient was started on IV Zosyn. He has been admitted and managed for cellulitis of left chest wall. [] Past Medical History Past Medical History (Chronic Problems): Chronic Problems (Last Reviewed 11/27/17 @ 09:38 by Carlota Miguel) PEG (percutaneous endoscopic gastrostomy) status (Chronic) Tobacco dependence in remission (Chronic) Pulmonary nodule, left (Chronic) History of laryngeal cancer (Chronic) Non-small cell carcinoma of left lung, stage 3 (Chronic) Dysphagia (Chronic) Chronic anemia (Chronic) Medical History: Medical History (Last Reviewed 11/27/17 @ 09:38 by Carlota Miguel) Anemia D64.9 Chicken pox B01.9 Dysphagia R13.10 Hypernatremia E87.0 Hyponatremia E87.1 Hypothyroidism E03.9 LEFT WRIST SURGERY Laryngeal cancer C32.9 Lymphadenitis I88.9 Measles B05.9 Mumps B26.9 Status post insertion of percutaneous endoscopic gastrostomy (PEG) tube Z93.1 Allergies Iodinated Contrast- Oral and IV Dye [CT] Allergy (Mild, Verified 12/07/17 14:52) Rash Home Medications: Ambulatory Orders Medication Instructions Recorded Albuterol IH (ProAir) [Proair Hfa] 2 puff INHALATION Q6H PRN 11/10/17 Dexamethasone [Decadron] 1 tablet PO DAILY@0800 11/10/17 Levothyroxine [Synthroid] 1 tablet PO DAILY 11/10/17 Ondansetron [Zofran Odt] 4 mg PO Q8H PRN PRN #30 tab 11/17/17 Oxycodone HCl/Acetaminophen 1 tablet PO Q6H PRN #90 tablet 11/17/17 [Percocet 5-325] Polyethylene Glycol 3350 [Miralax] 17 gm PO DAILY #30 packet 11/17/17 Magic Mouth Wash 15 ml PO Q6H PRN PRN #240 ml 11/27/17 Omeprazole [Prilosec] 20 mg PO DAILY #30 cap 12/03/17 Clonazepam [Klonopin] 0.5 mg PO TID 12/07/17 Surgical History: Surgical History (Last Reviewed 11/27/17 @ 09:38 by Carlota Miguel) History of thoracentesis Z98.890 History of hernia repair Z98.890, Z87.19 Surgical History: herniorrhaphy, - - PEG tube placement. Psychiatric History: Anxiety Lives: With Family Smoking Status: Former smoker - Quit 3 years ago. Had about a 37.5-pack-year smoking history. Alcohol: None - Quit 3 years ago - *Family History Paternal Family History: Family History (Last Reviewed 11/27/17 @ 09:38 by Carlota Miguel) Father Heart disease History Items: Heart Disease - Maternal Family History: Family History (Last Reviewed 11/27/17 @ 09:38 by Carlota Miguel) Father Heart disease History Items: No pertinent history Review of Systems Constitutional: Denies: Chills, Fever, Weight Change Eyes: Reports: Blurred vision HEENT: Denies: Head Aches, Sinus Congestion, Sinus Drainage Cardiovascular: Denies: Chest Pain, Chest Pressure, Chest Tightness, Light Headedness, Palpitations, Paroxysmal Noc. Dyspnea Respiratory: Denies: Cough, Shortness of breath at rest, Shortness of breath upon exertion, Sputum production, Wheezing Gastrointestinal: Denies: Abdominal Pain, Nausea, Vomiting Genitourinary: Denies: Dysuria Musculoskeletal: Denies: Joint Pain, Joint Tenderness Skin: Reports: - - ~ 10x8cm erythematous, warm area over left flank, over chest tube. Mild tenderness and minimal swelling on palpation Neurological: Denies: Numbness, Tingling, Focal weakness Psychiatric: Denies: Anxiety, Depression, Homicidal Ideations, Suicidal Ideations Hematologic/ Lymphatic: Denies: Easy Bruising, Easy Bleeding VTE Information - Inpt Only VTE Present on Admission: No VTE Mechan Device Prophylaxis: SCD's VTE Pharm Prophylaxis ordered?: No Reason prophylaxis not ordered:: Medical Contraindication - thrombocytopenia Patient Problems: Active and Suspected Problems (Last Reviewed 11/27/17 @ 09:38 by Carlota Miguel) Chemotherapy management, encounter for (Acute) Cellulitis (Acute) - Physical Exam General: Alert, Oriented x3, Cooperative, No apparent distress HEENT: Atraumatic, PERRLA, EOMI, Normocephalic Oral: Moist Mucosa Neck: Supple, No JVD, Negative Carotid Bruits Lungs: Normal air movement, No rhonchi, - - moderately decreased breath sounds in left lower lung romeo; no wheezing or crackles Cardiovascular: Regular rate, Regular Rhythm, Normal S1, Normal S2, No murmurs Abdomen: Bowel Sounds Present, Soft, Non Tender, Non-Distended, No Hepato-splenomegaly, - - PEG tube in place Extremities: No clubbing, No cyanosis, No edema, Capillary Refill Less than 3 Seconds Skin: - - erythematous, warm, mildly tender and swollen area over left flank, over the left chest tube Musculoskeletal: No Tenderness to Palpation of Joints or Extremities Lymphatic: No Cervical, Supraclavicular, or Inguinal Adenopathy Neurological: Cranial nerves II-XII grossly intact, Motor Exam 5/5 strength throughout Psych/Mental Status: Normal Affect, Alert and oriented to time, place, person, mood and affect Vital Signs Temp Pulse Resp BP Pulse Ox 99.3 F H 94 16 132/70 H 97 12/07/17 14:48 12/07/17 17:08 12/07/17 17:08 12/07/17 17:08 12/07/17 17:08 Oxygen Delivery Method Room Air Weight: 125 lb 3.561 oz Body Mass Index (BMI) 19.5 Laboratory Tests Past 24 Hrs 12/07/17 12/07/17 12/07/17 16:05 16:05 16:30 WBC 0.5 L* RBC 2.50 L Hgb 7.1 L Hct 22.1 L MCV 88.4 MCH 28.4 MCHC 32.1 RDW 18.0 H RDW Differential 55.3 H Plt Count 79 L MPV 8.8 Immature Gran % (Auto) 2.100 H Neut % (Auto) 87.5 H Lymph % (Auto) 8.3 L [place] % (Auto) 2.1 Eos % (Auto) 0.0 Baso % (Auto) 0.0 Absolute Neuts (auto) 0.4 L Absolute Lymphs (auto) 0.04 L Total Counted Not Reportable Differential Comment SCANNED Diff Path Review May foll Platelet Estimate MOD DEC Sodium 130 L Potassium 4.5 Chloride 94 L Carbon Dioxide 31.0 Anion Gap 5 BUN 27 H Creatinine 0.85 Estim Creat Clear Calc 72.39 Est GFR (MDRD) Af Amer 117 Est GFR (MDRD) Non-Af 97 BUN/Creatinine Ratio 31.7 H Glucose 117 H Lactic Acid 1.4 Calcium 8.6 Diagnostic Data Chest X-Ray 12/07/17 15:07 IMPRESSION: Significantly decrease in size of the previous large left pleural effusion. Presently, there is a moderate amount of pleural fluid on the left side. Left chest tube in place. There is no pneumothorax. Right lung is clear. Electronically Signed: Jn Dubon MD at 16:00 EDT , Service support , ADDENDUM: 12/07/17 1607 IMPRESSION: Significantly decrease in size of the previous large left pleural effusion. Presently, there is a moderate amount of pleural fluid on the left side. Left chest tube in place. There is no pneumothorax. Right lung is clear. Electronically Signed: Jn Duobn MD at 16:00 EDT , Service support , Assessment/Plan All Active Problems (Last Reviewed 11/27/17 @ 09:38 by Carlota Miguel) Atrial fibrillation and flutter (Acute) Pleural effusion (Acute) Chemotherapy management, encounter for (Acute) Cellulitis (Acute) 60-year-old male with a history of non-small cell lung cancer status post chest tube placement and laryngeal cancer admitted with a complaint of redness and swelling of his left chest wall, over site of chest tube. 1. Cellulitis over left chest wall (over site of left chest tube) symptoms started 2 days ago. No associated fever or chills. Fever was however 99.3F on admission. wbc is 0.2, likely due to chemo; last session of chemo was Friday. will admit to med surg 3. started on IV zosyn. will continue. Blood cultures taken in the ED. dicussed with Dr Chaudhary; to continue IV zosyn. If there is no improvement tomorrow, will remove chest tube catheter, and tip will be cultured general surgery consulted. 2. 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 says he is now having minimal drainage from chest tube over the last few days has had 3 sessions of chemotherapy, with last session being 1 week ago. Has had 7 sessions of radiotherapy. Sees Dr Leigh the oncologist wbc is 0.5; likely due to chemo effect; will consult oncology. will give sc granix 300mg once, in light of febrile neutropenia oncology consult placed. 3. History of laryngeal cancer s/p radiation. stable 4. Anemia (normocytic, normochromic) Hb is 7.1; baseline is around 8. will monitor; if it falls below 7, will transfuse. 5. Chronic hyponatremia: Sodium is 130. however, Na has been within normal limits this year ranging between 135-138. This is likely due to lung cancer. Will monitor. 6. Thrombocytopenia: Platelets 79. Will monitor. This is likely due to chemotherapy as platelets on 12/04/2017 was 182. Will monitor closely. 7. DVT prophylaxis; heparin. Given the platelets of 79, patient is a very high risk of DVT due to history of cancer. Will level give subcut heparin 5000 every 12.. If platelets fall below 50,000. SCDs 8. Nutrition: patient unable to eat due to history of laryngeal cancer. Has a PEG tube in place. Says he takes Isosource tube feeding 3x daily. Discussed with pharmacy; we dont have Isosource in our fomulary, the equivalent is Osmolite 1.2. Will start Osmolite 1.2 240mls tid. Nutrition consult placed. 9. Code status: patient counselled extensively about different types of code status and their interpretation. Patient wants to be Full code. This note was generated with [employer] dictation software. It may contain incorrect words, spelling, and punctuation that were not noted in checking the note before signing. Code Visit Inpatient E&M: 29595 Init Hosp L3 Procedures: 90007 Advncd Care Plan 30 Min
--- NOTE | 2017-12-07 17:26 | HP.PCM_ITS ---
Problem List (1) Cellulitis Status: Acute History of Present Illness Date of Admission: 12/07/17 Chief Complaint: redness over left flank The patient is a 62 year old M with a history of small cell lung cancer s/p left chest tube placement, laryngeal cancer was admitted via the ED on 2017 with a complaint of redness, minimal swelling and tenderness over the left chest wall, just over the area of the chest tube placement. Symptoms started just 2 days ago. According to patient, he saw Dr. Briones the surgeon in his office Friday he did not have these symptoms. Friday night he noted that he was having the symptoms and he denied any fever or chills. He has had minimal drainage from the chest tube over the past couple of days. In the ED vitals were stable, and CBC with differential showed white cell count of 0.5 with hemoglobin of 7.1 and platelets of 79. Chemistries were unremarkable. Blood cultures were ordered and pending. Chest x-ray showed a decreased effusion of the left chest and a left pleural catheter noted in the left chest. Patient was started on IV Zosyn. He has been admitted and managed for cellulitis of left chest wall. [] Past Medical History Past Medical History (Chronic Problems): Chronic Problems (Last Reviewed 11/27/17 @ 09:38 by Carlota Miguel) PEG (percutaneous endoscopic gastrostomy) status (Chronic) Tobacco dependence in remission (Chronic) Pulmonary nodule, left (Chronic) History of laryngeal cancer (Chronic) Non-small cell carcinoma of left lung, stage 3 (Chronic) Dysphagia (Chronic) Chronic anemia (Chronic) Medical History: Medical History (Last Reviewed 11/27/17 @ 09:38 by Carlota Miguel) Anemia D64.9 Chicken pox B01.9 Dysphagia R13.10 Hypernatremia E87.0 Hyponatremia E87.1 Hypothyroidism E03.9 LEFT WRIST SURGERY Laryngeal cancer C32.9 Lymphadenitis I88.9 Measles B05.9 Mumps B26.9 Status post insertion of percutaneous endoscopic gastrostomy (PEG) tube Z93.1 Allergies Iodinated Contrast- Oral and IV Dye [CT] Allergy (Mild, Verified 12/07/17 14:52) Rash Home Medications: Ambulatory Orders Medication Instructions Recorded Albuterol IH (ProAir) [Proair Hfa] 2 puff INHALATION Q6H PRN 11/10/17 Dexamethasone [Decadron] 1 tablet PO DAILY@0800 11/10/17 Levothyroxine [Synthroid] 1 tablet PO DAILY 11/10/17 Ondansetron [Zofran Odt] 4 mg PO Q8H PRN PRN #30 tab 11/17/17 Oxycodone HCl/Acetaminophen 1 tablet PO Q6H PRN #90 tablet 11/17/17 [Percocet 5-325] Polyethylene Glycol 3350 [Miralax] 17 gm PO DAILY #30 packet 11/17/17 Magic Mouth Wash 15 ml PO Q6H PRN PRN #240 ml 11/27/17 Omeprazole [Prilosec] 20 mg PO DAILY #30 cap 12/03/17 Clonazepam [Klonopin] 0.5 mg PO TID 12/07/17 Surgical History: Surgical History (Last Reviewed 11/27/17 @ 09:38 by Carlota Miguel) History of thoracentesis Z98.890 History of hernia repair Z98.890, Z87.19 Surgical History: herniorrhaphy, - - PEG tube placement. Psychiatric History: Anxiety Lives: With Family Smoking Status: Former smoker - Quit 3 years ago. Had about a 37.5-pack-year smoking history. Alcohol: None - Quit 3 years ago - *Family History Paternal Family History: Family History (Last Reviewed 11/27/17 @ 09:38 by Carlota Miguel) Father Heart disease History Items: Heart Disease - Maternal Family History: Family History (Last Reviewed 11/27/17 @ 09:38 by Carlota Miguel) Father Heart disease History Items: No pertinent history Review of Systems Constitutional: Denies: Chills, Fever, Weight Change Eyes: Reports: Blurred vision HEENT: Denies: Head Aches, Sinus Congestion, Sinus Drainage Cardiovascular: Denies: Chest Pain, Chest Pressure, Chest Tightness, Light Headedness, Palpitations, Paroxysmal Noc. Dyspnea Respiratory: Denies: Cough, Shortness of breath at rest, Shortness of breath upon exertion, Sputum production, Wheezing Gastrointestinal: Denies: Abdominal Pain, Nausea, Vomiting Genitourinary: Denies: Dysuria Musculoskeletal: Denies: Joint Pain, Joint Tenderness Skin: Reports: - - ~ 10x8cm erythematous, warm area over left flank, over chest tube. Mild tenderness and minimal swelling on palpation Neurological: Denies: Numbness, Tingling, Focal weakness Psychiatric: Denies: Anxiety, Depression, Homicidal Ideations, Suicidal Ideations Hematologic/ Lymphatic: Denies: Easy Bruising, Easy Bleeding VTE Information - Inpt Only VTE Present on Admission: No VTE Mechan Device Prophylaxis: SCD's VTE Pharm Prophylaxis ordered?: No Reason prophylaxis not ordered:: Medical Contraindication - thrombocytopenia Patient Problems: Active and Suspected Problems (Last Reviewed 11/27/17 @ 09:38 by Carlota Miguel) Chemotherapy management, encounter for (Acute) Cellulitis (Acute) - Physical Exam General: Alert, Oriented x3, Cooperative, No apparent distress HEENT: Atraumatic, PERRLA, EOMI, Normocephalic Oral: Moist Mucosa Neck: Supple, No JVD, Negative Carotid Bruits Lungs: Normal air movement, No rhonchi, - - moderately decreased breath sounds in left lower lung romeo; no wheezing or crackles Cardiovascular: Regular rate, Regular Rhythm, Normal S1, Normal S2, No murmurs Abdomen: Bowel Sounds Present, Soft, Non Tender, Non-Distended, No Hepato- splenomegaly, - - PEG tube in place Extremities: No clubbing, No cyanosis, No edema, Capillary Refill Less than 3 Seconds Skin: - - erythematous, warm, mildly tender and swollen area over left flank, over the left chest tube Musculoskeletal: No Tenderness to Palpation of Joints or Extremities Lymphatic: No Cervical, Supraclavicular, or Inguinal Adenopathy Neurological: Cranial nerves II-XII grossly intact, Motor Exam 5/5 strength throughout Psych/Mental Status: Normal Affect, Alert and oriented to time, place, person, mood and affect Vital Signs Temp Pulse Resp BP Pulse Ox 99.3 F H 94 16 132/70 H 97 12/07/17 14:48 12/07/17 17:08 12/07/17 17:08 12/07/17 17:08 12/07/17 17:08 Oxygen Delivery Method Room Air Weight: 125 lb 3.561 oz Body Mass Index (BMI) 19.5 Laboratory Tests Past 24 Hrs 12/07/17 12/07/17 12/07/17 16:05 16:05 16:30 WBC 0.5 L* RBC 2.50 L Hgb 7.1 L Hct 22.1 L MCV 88.4 MCH 28.4 MCHC 32.1 RDW 18.0 H RDW Differential 55.3 H Plt Count 79 L MPV 8.8 Immature Gran % (Auto) 2.100 H Neut % (Auto) 87.5 H Lymph % (Auto) 8.3 L [place] % (Auto) 2.1 Eos % (Auto) 0.0 Baso % (Auto) 0.0 Absolute Neuts (auto) 0.4 L Absolute Lymphs (auto) 0.04 L Total Counted Not Reportable Differential Comment SCANNED Diff Path Review May foll Platelet Estimate MOD DEC Sodium 130 L Potassium 4.5 Chloride 94 L Carbon Dioxide 31.0 Anion Gap 5 BUN 27 H Creatinine 0.85 Estim Creat Clear Calc 72.39 Est GFR (MDRD) Af Amer 117 Est GFR (MDRD) Non-Af 97 BUN/Creatinine Ratio 31.7 H Glucose 117 H Lactic Acid 1.4 Calcium 8.6 Diagnostic Data Chest X-Ray 12/07/17 15:07 IMPRESSION: Significantly decrease in size of the previous large left pleural effusion. Presently, there is a moderate amount of pleural fluid on the left side. Left chest tube in place. There is no pneumothorax. Right lung is clear. Electronically Signed: Jn Dubon MD at 16:00 EDT , Service support , ADDENDUM: 12/07/17 1607 IMPRESSION: Significantly decrease in size of the previous large left pleural effusion. Presently, there is a moderate amount of pleural fluid on the left side. Left chest tube in place. There is no pneumothorax. Right lung is clear. Electronically Signed: Jn Dubon MD at 16:00 EDT , Service support , Assessment/Plan All Active Problems (Last Reviewed 11/27/17 @ 09:38 by Carlota Miguel) Atrial fibrillation and flutter (Acute) Pleural effusion (Acute) Chemotherapy management, encounter for (Acute) Cellulitis (Acute) 60-year-old male with a history of non-small cell lung cancer status post chest tube placement and laryngeal cancer admitted with a complaint of redness and swelling of his left chest wall, over site of chest tube. 1. Cellulitis over left chest wall (over site of left chest tube) * symptoms started 2 days ago. No associated fever or chills. Fever was however 99.3F on admission. * wbc is 0.2, likely due to chemo; last session of chemo was Friday. * will admit to med surg 3. * started on IV zosyn. will continue. Blood cultures taken in the ED. * dicussed with Dr Chaudhary; to continue IV zosyn. If there is no improvement tomorrow, will remove chest tube catheter, and tip will be cultured * general surgery consulted. * 2. 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 says he is now having minimal drainage from chest tube over the last few days * has had 3 sessions of chemotherapy, with last session being 1 week ago. Has had 7 sessions of radiotherapy. Sees Dr Leigh the oncologist * wbc is 0.5; likely due to chemo effect; will consult oncology. * will give sc granix 300mg once, in light of febrile neutropenia * oncology consult placed. * 3. History of laryngeal cancer * s/p radiation. * stable * 4. Anemia (normocytic, normochromic) * Hb is 7.1; baseline is around 8. * will monitor; if it falls below 7, will transfuse. * 5. Chronic hyponatremia: * Sodium is 130. however, Na has been within normal limits this year ranging between 135-138. This is likely due to lung cancer. Will monitor. 6. Thrombocytopenia: Platelets 79. Will monitor. This is likely due to chemotherapy as platelets on 12/04/2017 was 182. Will monitor closely. 7. DVT prophylaxis; * heparin. Given the platelets of 79, patient is a very high risk of DVT due to history of cancer. * Will level give subcut heparin 5000 every 12.. If platelets fall below 50, 000. * SCDs * 8. Nutrition: patient unable to eat due to history of laryngeal cancer. Has a PEG tube in place. Says he takes Isosource tube feeding 3x daily. Discussed with pharmacy; we dont have Isosource in our fomulary, the equivalent is Osmolite 1.2. Will start Osmolite 1.2 240mls tid. Nutrition consult placed. 9. Code status: patient counselled extensively about different types of code status and their interpretation. Patient wants to be Full code. This note was generated with [employer] dictation software. It may contain incorrect words, spelling, and punctuation that were not noted in checking the note before signing. Code Visit Inpatient E&M: 51437 Init Hosp L3 Procedures: 27509 Advncd Care Plan 30 Min
[2017-12-07 17:32] VITALS: BMI 19.7
[2017-12-07 17:40] VITALS: BP 114/72; PULSE 85; RESP 16; TEMP 37.3; O2SAT 95
--- NOTE | 2017-12-07 18:05 | CON.PCM_ITS ---
Reason for Consult Date of Consultation: 12/07/17 History of Present Illness: The patient is a 62 year old M who presents with leukopenia/neutropenia and pain and erythema at his chest insertion site of his pleurex catheter Tomy is a patient I am following for malignant left pleural effusion. ~~ ? I performed a left tunnel Pleurx catheter placement~~on November 11, 2017. ~The patient had significant locally advanced disease and after withdrawal of fluid from the left pleural space. ~The lung failed to expand significantly and actually had a degree of shifting in the mediastinum towards the side of the disease. ~The patient has since been getting his chemotherapy and also had bronchoscopy performed with attempt at opening some of the proximal airways. ~ Overall, the patient notes improved shortness of breath and functional status. ~ He had a CT scan within the last 2 weeks which demonstrated significant reexpansion and aeration of the upper left lobe. ~There is still a consolidated not expanded lower lobe with some pleural fluid still present around it.~~~The patient currently notes that he gets a variable amount of fluid from the Pleurx catheter when he is draining it every few days. ~his appetite has been good. ~ he denies fever, chills or abdominal pain. ~he does note some no significant~ incisional discomfort. I had seen the patient in the office on December 04 and he was doing well without erythema. He now presents to the emergency department with these complaints. Aside from his left-sided lung cancer ,he also has a previous history of floor of mouth cancer. He has a PEG tube where he gets most of his nutrition Past Medical History Past Medical History (Chronic Problems): Chronic Problems (Last Reviewed 11/27/17 @ 09:38 by Carlota Miguel) PEG (percutaneous endoscopic gastrostomy) status (Chronic) Tobacco dependence in remission (Chronic) Pulmonary nodule, left (Chronic) History of laryngeal cancer (Chronic) Dysphagia (Chronic) Chronic anemia (Chronic) Medical History: Medical History (Last Reviewed 11/27/17 @ 09:38 by Carlota Miguel) Anemia D64.9 Chicken pox B01.9 Dysphagia R13.10 Hypernatremia E87.0 Hyponatremia E87.1 Hypothyroidism E03.9 LEFT WRIST SURGERY Laryngeal cancer C32.9 Lymphadenitis I88.9 Measles B05.9 Mumps B26.9 Status post insertion of percutaneous endoscopic gastrostomy (PEG) tube Z93.1 Allergies Iodinated Contrast- Oral and IV Dye [CT] Allergy (Mild, Verified 12/07/17 14:52) Rash Home Medications: Ambulatory Orders Medication Instructions Recorded Albuterol IH (ProAir) [Proair Hfa] 2 puff INHALATION Q6H PRN 11/10/17 Dexamethasone [Decadron] 1 tablet PO DAILY@0800 11/10/17 Levothyroxine [Synthroid] 1 tablet PO DAILY 11/10/17 Ondansetron [Zofran Odt] 4 mg PO Q8H PRN PRN #30 tab 11/17/17 Oxycodone HCl/Acetaminophen 1 tablet PO Q6H PRN #90 tablet 11/17/17 [Percocet 5-325] Polyethylene Glycol 3350 [Miralax] 17 gm PO DAILY #30 packet 11/17/17 Magic Mouth Wash 15 ml PO Q6H PRN PRN #240 ml 11/27/17 Omeprazole [Prilosec] 20 mg PO DAILY #30 cap 12/03/17 Clonazepam [Klonopin] 0.5 mg PO TID 12/07/17 Surgical History: Surgical History (Last Reviewed 11/27/17 @ 09:38 by Carlota Miguel) History of hernia repair Z98.890, Z87.19 History of thoracentesis Z98.890 Surgical History: herniorrhaphy, - - PEG tube placement. Psychiatric History: Anxiety Lives: With Family Smoking Status: Former smoker - Quit 3 years ago. Had about a 37.5-pack-year smoking history. Alcohol: None - Quit 3 years ago - *Family History Paternal Family History: Family History (Last Reviewed 11/27/17 @ 09:38 by Carlota Miguel) Father Heart disease History Items: Heart Disease - Maternal Family History: Family History (Last Reviewed 11/27/17 @ 09:38 by Carlota Miguel) Father Heart disease History Items: No pertinent history Review of Systems Constitutional: Denies: Chills, Fever, Weight Change HEENT: Denies: Head Aches, Sinus Congestion, Sinus Drainage Cardiovascular: Denies: Chest Pain, Palpitations Respiratory: Denies: Cough, Shortness of breath at rest, Sputum production Gastrointestinal: Denies: Abdominal Pain, Nausea, Vomiting Genitourinary: Denies: Dysuria Musculoskeletal: Denies: Joint Pain, Joint Tenderness Skin: Denies: Rash, Wounds Neurological: Denies: Numbness, Tingling, Focal weakness Psychiatric: Denies: Anxiety, Depression, Homicidal Ideations, Suicidal Ideations Hematologic/ Lymphatic: Denies: Easy Bruising, Easy Bleeding Patient Problems: Active and Suspected Problems (Last Reviewed 11/27/17 @ 09:38 by Carlota Miguel) Pancytopenia (Acute) - Physical Exam General: Alert, Oriented x3 Lungs: Diminished - breath sounds at the left base and dullness to percussion at the left base, but overall vastly improved over the past month, - - insertion site at the left lateral chest or the Pleurx catheter inserts into the chest demonstrates some erythema without fluctuance. There is no significant erythema at the site where the tube exits the skin and no expressible purulence. At the site is tender Cardiovascular: Regular rate, Regular Rhythm Abdomen: Bowel Sounds Present, Soft, Non Tender Vital Signs Temp Pulse Resp BP Pulse Ox 99.3 F H 86 18 132/70 H 94 12/07/17 14:48 12/07/17 17:09 12/07/17 17:09 12/07/17 17:09 12/07/17 17:09 Oxygen Delivery Method Room Air Weight: 57.1 kg Body Mass Index (BMI) 19.7 Laboratory Tests Past 24 Hrs 12/07/17 12/07/17 12/07/17 16:05 16:05 16:30 WBC 0.5 L* RBC 2.50 L Hgb 7.1 L Hct 22.1 L MCV 88.4 MCH 28.4 MCHC 32.1 RDW 18.0 H RDW Differential 55.3 H Plt Count 79 L MPV 8.8 Immature Gran % (Auto) 2.100 H Neut % (Auto) 87.5 H Lymph % (Auto) 8.3 L [place] % (Auto) 2.1 Eos % (Auto) 0.0 Baso % (Auto) 0.0 Absolute Neuts (auto) 0.4 L Absolute Lymphs (auto) 0.04 L Total Counted Not Reportable Differential Comment SCANNED Diff Path Review May foll Platelet Estimate MOD DEC Sodium 130 L Potassium 4.5 Chloride 94 L Carbon Dioxide 31.0 Anion Gap 5 BUN 27 H Creatinine 0.85 Estim Creat Clear Calc 72.39 Est GFR (MDRD) Af Amer 117 Est GFR (MDRD) Non-Af 97 BUN/Creatinine Ratio 31.7 H Glucose 117 H Lactic Acid 1.4 Calcium 8.6 Assessment/Plan All Active Problems (Last Reviewed 11/27/17 @ 09:38 by Carlota Miguel) Non-small cell carcinoma of left lung, stage 3 (Acute) Atrial fibrillation and flutter (Acute) Pleural effusion (Acute) Chemotherapy management, encounter for (Acute) Cellulitis (Acute) Pancytopenia (Acute) cellulitis at chest insertion site, neutropenia, lung cancer. The patient will be admitted and started on IV antibiotics. Since there is no significant erythema at the catheter skin exit site, I am not sure if this is erythema from infection or fluid tracing out from the chest. Overall, the patient is responding to his treatment and the upper lung romeo are much better expanded, but there is still collapse of the lower lobe with fluid present in the pleural space. If the site fails to improve, I will plan for removal of the catheter.
[2017-12-07] MEDS: oxyCODONE 5 MG Tablet PO (19:19)
[2017-12-07] MEDS: TBO-FILGRASTIM 300 MCG/0.5 ML ML SC (19:28)
[2017-12-07 20:05] VITALS: BP 122/68; PULSE 84; RESP 18; TEMP 36.9; O2SAT 98
[2017-12-07] MEDS: Piperacil/Tazobactam 3.375 GM/50 ML ML IV (21:50)
[2017-12-07] MEDS: oxyCODONE 5 MG Tablet 10 MG GT (21:51)
[2017-12-07] MEDS: Polyethylene Glycol 3350 17 GM PACKET GT (21:51)
[2017-12-07] MEDS: Heparin Injection (Vial) 5,000 UNIT/ML VIAL 5000 UNIT SC (21:52)
[2017-12-07] MEDS: clonazePAM 0.5 MG Tablet GT (21:52)
[2017-12-07] MEDS: Omeprazole 20 MG Capsule GT (21:53)
[2017-12-08] VITALS (10 sets, daily range): BP systolic 105–134; BP diastolic 54–78; PULSE 74–84; RESP 16–20; TEMP 36.6–37.9; O2SAT 92–100
[2017-12-08] MEDS: oxyCODONE 5 MG Tablet 10 MG GT ×3 (01:49→22:18)
[2017-12-08 05:15] LABS: Hematocrit 20.1 % (40-54); Hemoglobin 6.4 g/dl (13.0-16.5); Mean Corp Hgb Conc 31.8 g/gl (32-36); Mean Corpuscular Hgb 28.6 pg (27.0-32.0); Mean Corpuscular Volume 89.7 fL (80-94); Mean Platelet Vol. 9.3 fl (6.2-12.0); Platelet Count 97 K/mm3 (150-450); RBC Distribution Width CV 17.7 % (11.6-14.6); RBC Distribution Width SD 52.8 fl (35.1-43.9); Red Blood Count 2.24 M/mm3 (4.6-6.2)
[2017-12-08 05:17] LABS: Scan Indicated on CBC? Y/N YES- FLAGS NOTED
[2017-12-08 05:18] LABS: White Blood Count 0.7 K/mm3 (4.4-11.0)
[2017-12-08 05:23] LABS: Creatinine, Serum 0.75 mg/dL (0.70-1.30); EST Glomerular Filtration Rate 112 mL/min (>60); Est Glom Filt Rate - Afr Amer 136 mL/min (>60); Estimated Creatinine Clearance 82.48 ml/min
[2017-12-08] MEDS: Levothyroxine 150 MCG Tablet GT (05:56)
[2017-12-08] MEDS: 0.9% NaCl VAD Flush 10 ML IV (05:57)
[2017-12-08] MEDS: 0.9% Normal Saline 1,000 ML 150 ML IV ×2 (06:05→17:46)
[2017-12-08 06:27] LABS: Differential Comment SCANNED
[2017-12-08] MEDS: Piperacil/Tazobactam 3.375 GM/50 ML ML IV ×3 (06:54→22:18)
[2017-12-08] MEDS: Bupivacaine Mpf 0.5% 30 ML VIAL (08:22)
--- NOTE | 2017-12-08 08:32 | NURSING ---
0822 called report to Jane in [facility]. 1 Unit of blood sent with pt.
--- NOTE | 2017-12-08 09:28 | PCM.OPRPT ---
Report of Operation Date of Procedure: 12/08/17 Pre-Operative Diagnosis: infected left tunneled pleural catheter Post-Operative Diagnosis: infected left tunneled pleural catheter Surgery/Procedure Performed:: removal of tunneled catheter nuclear engineering technician: None Type of Anesthesia:: MAC Anesthesiologist: Alejandro Banuelos Specimen's removed: catheter - tract culture, catheter tip for aerobic and anaerobic Description of Procedure: the patient was brought to the operative suite. Sign in was performed and the patient, site, position. The patient is currently on antibiotics. Following IV sedation, the chest tubes/Pleurx catheter insertion site was prepped and draped in the usual fashion with Betadine paint. Local anesthetic was injected in the skin. The suture securing the catheter was cut and the catheter was removed with gentle traction. There was a scant amount of pus that came out with the catheter. The skin tract was then culture swab and sent for culture. The tip of the catheter was cut, placed in a sterile container and sent for culture. a dressing was applied. The patient was taken to recovery in stable condition.
[2017-12-08] MEDS: Omeprazole 20 MG Capsule GT (10:33)
--- NOTE | 2017-12-08 11:34 | NURSING ---
Pt arrived to floor from PACU around 1030. VSS. Blood hanging and running through pump as maintenance fluid at KVO. Adjusted to 150ml/hr. Pt denies any heart hx. Notified automobile radio repairer who noticed blood was not verified. Quantros entered.
--- NOTE | 2017-12-08 12:14 | NURSING ---
1135 TAR Vitals 98.2 temp, bp right arm 122/72, hr 77. 97% RA, resp 20. Unable to document vitals due to blood transfusion status being transfused even though blood still running. band maker aware.
--- NOTE | 2017-12-08 12:26 | NURSING ---
Blood transfusion complete at 1216. BP right arm 136/67, Hr 90, resp 20, 97% RA.
[2017-12-08 14:16] LABS: Pathologist Review Reviewed
[2017-12-08 14:17] LABS: Pathologist Review Reviewed
--- NOTE | 2017-12-08 14:57 | NURSING ---
pt arrive from PACU around 1030. VSS. Blood hanging and running through IV pump as maintenance fluid at KVO. Adjusted to 150ml/hr. Pt denies heart hx. Notified charge master specialist who noticed blood was not verified.
--- NOTE | 2017-12-08 15:04 | CASEMGMT ---
RNCM Readmission Note. 11/10/17-11/12/17. Pt treated for worsening L sided pleural effusion. Was treated for shortness of breath, had thoracentesis and L pleurx catheter placed. Home on discharge 12/07/17. Readmission for inflammation @ pleurx cath site. On IV antibiotics. Pt lives in one story home. Was independent prior to admission. Tunnel cath removed 12/08. PT/OT ordered, due to surgery, no evals today. DC PLAN: adelfo. Ramona BETANCOURTN RN ACM
[2017-12-08] MEDS: clonazePAM 0.5 MG Tablet GT ×2 (15:33→22:22)
[2017-12-08] MEDS: TBO-FILGRASTIM 300 MCG/0.5 ML ML SC (15:34)
--- NOTE | 2017-12-08 16:10 | ONC.CON.INP2 ---
- Problem List (1) Pancytopenia Status: Acute (2) Non-small cell carcinoma of left lung, stage 3 Status: Acute (3) Pleural effusion Status: Acute Consult Referring Physician: Hospitalist service Consult Results: Lung cancer, pleural effusion, pancytopenia Subjective Date of Service:: 12/08/17 Chief Complaint: infected chest tube History of Present Illness: Mr. Tomy Munson is a 62 y.o.man with stage IIIb non-small cell lung cancer recently diagnosed when a CT scan of chest on 09/16/2017 showed increasing Left lower lobe mass and new Left hilar mass. EBUS + biopsy, on 09/26/2017 and showed squamous cell cancer. MRI brain done on 10/14/2017 was negative for brain metastases. PET/CT on 10/16/2017 shows new hypermetabolic activity in left hemithorax with activity in precarinal area mediastinum, left perihilar area and pleural effusion. Thoracentesis showed no malignant cells. Pleurx cath was placed. He was staged as NSCLC stage IIIB. He started chemotherapy with weekly carboplatin and Taxol on 11/20/2017 with concomitant radiation therapy on 11/24/[address] Leigh and Sara. His last chemo was December 04, 2017. He was hospitalized on December 07 with increasing chest pain at the site of the Pleurx catheter associated with swelling and erythema. He was found to be profoundly pancytopenic with an absolute neutrophil count of 400. He was started on intravenous antibiotics, the Pleurx cath was removed December 08. Past Medical History: Chronic Problems (Last Reviewed 11/27/17 @ 09:38 by Carlota Miguel) PEG (percutaneous endoscopic gastrostomy) status (Chronic) Tobacco dependence in remission (Chronic) Pulmonary nodule, left (Chronic) History of laryngeal cancer (Chronic) Dysphagia (Chronic) Chronic anemia (Chronic) Past Medical/Surgical History: Past Medical History - Most Recent Inpatient Visit Past Medical History Start: 12/07/17 17:32 Text: Status: Complete Freq: ONCE Protocol: Document 12/07/17 17:32 TDW (Rec: 12/07/17 17:41 TDW [id number]) BMI Required to complete PMH What is Patient's BMI 19.7 Past Medical History Unable History Recalled No Query Text:Pt Unable/Family Not Present Neurologic Medical History Hx Stroke/TIA No Hx Dementia/Alzheimer's No Hx Parkinson's Disease No Hx Seizures No Hx Multiple Sclerosis No Hx Migraines No Cardiac Medical History VTE Present on Admission No Hx of Deep Vein Thrombosis/VTE/PE No Hx Hypertension No Hx Chest Pain/Angina Yes: from chest tube Hx Heart Attack No Hx Cardiac Surgery/Stents/Etc. No Hx Heart Failure No Hx Pacemaker/AICD No Hx Irregular Heartbeat and/or Afib Yes Hx Anticoagulant Therapy No Query Text:(Coumadin, Aspirin, Plavix, Xarelto, etc.) Hx Pain in Legs when Walking/Leg Cramps No Respiratory Medical History Hx COPD No Hx Emphysema No Hx Smoking Yes: SMOKED 25 YRS /PPD/QUIT SMOKING 2.5 YRS AGO Smoking Status Former smoker Hx Smoking Cessation Counseling Yes Hx Smoking Exposure Yes Hx Tobacco Use in last 12 months No Hx of Pipe Smoking No Hx Sleep Apnea No: . CPAP No BIPAP No Do you snore loudly (louder than talking No or can be heard through closed doors)? Do you often feel tired/ fatigued/ No sleepy during daytime? Has anyone observed you stop breathing No during sleep? STOP Results Negative GI Medical History Hx Ulcer No Hx Hepatitis No Hx Cirrhosis No Hx GI Bleed No: ESOPHAGUS STRETCHED Hx Unplanned Weight Loss Yes Genitourinary Medical History Indwelling Catheter in Place on Arrival/ No Admission Hx Renal Disease No Hx Dialysis No Musculoskeletal History Hx Arthritis Yes Hx Rheumatoid Arthritis No Endocrine Medical History Hx Diabetes No Hx Thyroid Disease Yes: ON MED Hematologic Medical History Hx of Blood Transfusion Yes Hx of Transfusion in last 3 Months No Ever experience any problems with No transfusion(s)? Hx of Preganancy in last 3 Months N/A Nurse Filling Out Transfusion & TWOLF Questions: Date: 12/07/17 Time: 17:39 Psycho/Social Medical History Hx Depression No Hx Anxiety No Hx Behavior Disorder No Hx Alcohol Use Yes: 12 BEERS /DAY QUIT 2 YRS AGO Hx Substance Use No Other Medical History Hx Blood Disorders No Hx Anemia Yes Hx Cancer Yes: throat/neck cancer/ RADIATION [place] Hx Drug Resistant Organism No Wound/Pressure Injury Present on Arrival Yes /Admission Query Text:If yes, chart assessment in Shift/Clinical Findings Central Line/PICC/VAD Present on Arrival Yes /Admission Antibiotics within last 7 days? No Risk for Readmission Number of Risk Factors 7 At Risk for Readmission Patient is At Risk For Readmission Patient is eligible for Call Back Y Past Medical History (Last Reviewed 11/27/17 @ 09:38 by Carlota Miguel) Anemia (Acute) Chicken pox (Acute) Dysphagia (Acute) Hypernatremia (Acute) Hyponatremia (Acute) Hypothyroidism (Acute) LEFT WRIST SURGERY (Acute) Laryngeal cancer (Acute) Lymphadenitis (Acute) Measles (Acute) Mumps (Acute) Status post insertion of percutaneous endoscopic gastrostomy (PEG) tube (Acute) Past Surgical History (Last Reviewed 11/27/17 @ 09:38 by Carlota Miguel) History of hernia repair (Acute) History of thoracentesis (Acute) Paternal Family History: Family History (Last Reviewed 11/27/17 @ 09:38 by Carlota Miguel) Father Heart disease Family History: Heart Disease - Maternal Family History: Family History (Last Reviewed 11/27/17 @ 09:38 by Carlota Miguel) Father Heart disease Family History: No pertinent history - Social History Lives: With Family Smoking Status: Former smoker - Quit 3 years ago. Had about a 37.5-pack-year smoking history. Alcohol: None - Quit 3 years ago Allergies/Adverse Reactions: Allergy/AdvReac Type Severity Reaction Status Date / Time Iodinated Contrast- Oral and Allergy Mild Rash Verified 12/07/17 14:52 IV Dye [CT] Review of Systems Constitutional:: Reports: Weakness, Fatigue, Weight loss - Each. Denies: Fever, Sweats, Appetite change, Chills Cardiovascular:: Reports: Chest pain - Site of the Pleurx cath, Dyspnea on exertion. Denies: Palpitations, Orthopnea, PND, Shortness of breath Respiratory: Reports: Cough, Shortness of Breath, Shortness of breath upon exertion. Denies: Hemoptysis, Wheezing Gastrointestinal:: Denies: Abdominal pain, Nausea, Vomiting, Diarrhea, Constipation, Hematochezia Genitourinary: Denies: Dysuria, Hematuria, 15, Flank pain Musculoskeletal:: Denies: Back pain, Myalgia, Arthralgia Skin: Denies: Rash, Skin Changes, Wounds Neurological:: Denies: Headache, Dizziness, Visual changes, Tinnitus, Hearing loss Psychiatric: Denies: Anxiety, Depression, Homicidal Ideations, Suicidal Ideations Vital Signs Height 5 ft 7 in Weight: 57.1 kg Weight in Pounds 125.9 lbs Pulse Ox 92 Temperature 98.1 F Pulse Rate 84 Respiratory Rate 20 Blood Pressure 123/66 Blood Pressure Position Semi-Fowlers - Physical Exam General: Alert, Oriented x3, No apparent distress, - - Frail, thin, hoarse HEENT: Atraumatic, PERRLA, EOMI, Normocephalic Oropharynx:: Dry mucosa Neck:: Supple, Trachea midline, - - Port okay. Negative for: JVD, bilateral Cardiac:: Regular rate, Regular rhythm, Normal S1, Normal S2. Negative for: Murmur Lungs: Clear to auscultation, Diminished, Excusion symmetrical. Negative for: Rhonchi, Wheezes Abdomen:: Soft, Non-tender, Non-distended, - - Feeding tube. Negative for: Hepatosplenomegaly Extremities:: Negative for: Cyanosis, Edema Neurological: Neuro grossly intact Skin:: Negative for: Lesions, Rash, Petechiae, Ecchymosis Psychiatric:: Appropriate affect, Euthymic Lymphatics:: Negative for: Cervical lymphadenopathy, Supraclavicular lymphadenopathy Laboratory Data: Microbiology 12/08/17 09:26 Gram Stain - Final Incision/Surgical Site Laboratory Tests 12/08/17 12/08/17 12/08/17 Range/Units 05:45 04:40 04:40 WBC 0.7 L* (4.4-11.0) K/mm3 RBC 2.24 L (4.6-6.2) M/mm3 Hgb 6.4 L (13.0-16.5) g/dl Hct 20.1 L (40-54) % MCV 89.7 (80-94) fL MCH 28.6 (27.0-32.0) pg MCHC 31.8 L (32-36) g/gl RDW 17.7 H (11.6-14.6) % RDW Differential 52.8 H (35.1-43.9) fl Plt Count 97 L (150-450) K/mm3 MPV 9.3 (6.2-12.0) fl Differential Comment SCANNED Diff Path Review Reviewed Creatinine 0.75 (0.70-1.30) mg/dL Estim Creat Clear Calc 82.48 ml/min Est GFR (MDRD) Af Amer 136 (>60) mL/min Est GFR (MDRD) Non-Af 112 (>60) mL/min Blood Type O NEGATIVE Antibody Screen NEGATIVE Crossmatch See Detail Diagnostic Data: Diagnostic Data Chest X-Ray 12/07/17 15:07 IMPRESSION: Significantly decrease in size of the previous large left pleural effusion. Presently, there is a moderate amount of pleural fluid on the left side. Left chest tube in place. There is no pneumothorax. Right lung is clear. Electronically Signed: Jn Dubon MD at 16:00 EDT , Service support , ADDENDUM: 12/07/17 1607 IMPRESSION: Significantly decrease in size of the previous large left pleural effusion. Presently, there is a moderate amount of pleural fluid on the left side. Left chest tube in place. There is no pneumothorax. Right lung is clear. Electronically Signed: Jn Dubon MD at 16:00 EDT , Service support , Assessment and Plan 62-year-old male with: 1. Non-small cell lung cancer, clinical stage IIIB on combined modality chemoradiation. Will hold chemotherapy and radiation this week due to severe pancytopenia and left Pleurx cath infection. 2. Pancytopenia severe due to recent chemotherapy and radiation on top of anemia of chronic disease. Chemo and radiation will be held this week to allow for bone marrow recovery. A)Transfused with packed red blood cells to a target hemoglobin above 7-8 g per DL depending on symptomatology. B) Will start growth factor support with Granix (5 mg/kg body weight subcu daily) until neutrophil recovery above 1000 for 3 successive days. C) Prophylactic platelet transfusion if less than 10 K or active bleeding. 3. Broad-spectrum antibiotic cover as per primary service. 4. Continue tube feeds. 5. Venous thromboembolism prophylaxis, okay to use pharmacologic agent as long as platelet count above 50,000. Patient encouraged to ambulate. Thank you for involving me in his care, will follow-up during hospital stay and after discharge Medications: Prescriptions This Visit Medication Instructions Recorded Clonazepam [Klonopin] 0.5 mg PO TID 12/07/17 Medications Added to Medication List This Visit Category Date Time Status Dexamethasone [Decadron] Med 12/08/17 08:00 Active 4 mg GT DAILY@0800 Tbo-Filgrastim [Granix] Med 12/08/17 11:00 Active 300 mcg SC DAILY Primary Care Provider: ROYCE Montero Referring Provider:
--- NOTE | 2017-12-08 16:20 | CON.PCM_ITS ---
- Problem List (1) Pancytopenia Status: Acute (2) Non-small cell carcinoma of left lung, stage 3 Status: Acute (3) Pleural effusion Status: Acute Consult Referring Physician: Hospitalist service Consult Results: Lung cancer, pleural effusion, pancytopenia Subjective Date of Service:: 12/08/17 Chief Complaint: infected chest tube History of Present Illness: Mr. Tomy Munson is a 62 y.o.man with stage IIIb non-small cell lung cancer recently diagnosed when a CT scan of chest on 09/16/2017 showed increasing Left lower lobe mass and new Left hilar mass. EBUS + biopsy, on 09/26/2017 and showed squamous cell cancer. MRI brain done on 10/14/2017 was negative for brain metastases. PET/CT on 10/16/2017 shows new hypermetabolic activity in left hemithorax with activity in precarinal area mediastinum, left perihilar area and pleural effusion. Thoracentesis showed no malignant cells. Pleurx cath was placed. He was staged as NSCLC stage IIIB. He started chemotherapy with weekly carboplatin and Taxol on 11/20/2017 with concomitant radiation therapy on 11/24/[address] Leigh and Sara. His last chemo was December 04, 2017. He was hospitalized on December 07 with increasing chest pain at the site of the Pleurx catheter associated with swelling and erythema. He was found to be profoundly pancytopenic with an absolute neutrophil count of 400. He was started on intravenous antibiotics, the Pleurx cath was removed December 08. Past Medical History: Chronic Problems (Last Reviewed 11/27/17 @ 09:38 by Carlota Miguel) PEG (percutaneous endoscopic gastrostomy) status (Chronic) Tobacco dependence in remission (Chronic) Pulmonary nodule, left (Chronic) History of laryngeal cancer (Chronic) Dysphagia (Chronic) Chronic anemia (Chronic) Past Medical/Surgical History: Past Medical History - Most Recent Inpatient Visit Past Medical History Start: 12/07/17 17: 32 Text: Status: Complete Freq: ONCE Protocol: Document 12/07/17 17:32 TDW (Rec: 12/07/17 17:41 TDW [id number]) BMI Required to complete PMH What is Patient's BMI 19.7 Past Medical History Unable History Recalled No Query Text:Pt Unable/Family Not Present Neurologic Medical History Hx Stroke/TIA No Hx Dementia/Alzheimer's No Hx Parkinson's Disease No Hx Seizures No Hx Multiple Sclerosis No Hx Migraines No Cardiac Medical History VTE Present on Admission No Hx of Deep Vein Thrombosis/VTE/PE No Hx Hypertension No Hx Chest Pain/Angina Yes: from chest tube Hx Heart Attack No Hx Cardiac Surgery/Stents/Etc. No Hx Heart Failure No Hx Pacemaker/AICD No Hx Irregular Heartbeat and/or Afib Yes Hx Anticoagulant Therapy No Query Text:(Coumadin, Aspirin, Plavix, Xarelto, etc.) Hx Pain in Legs when Walking/Leg Cramps No Respiratory Medical History Hx COPD No Hx Emphysema No Hx Smoking Yes: SMOKED 25 YRS /PPD/QUIT SMOKING 2.5 YRS AGO Smoking Status Former smoker Hx Smoking Cessation Counseling Yes Hx Smoking Exposure Yes Hx Tobacco Use in last 12 months No Hx of Pipe Smoking No Hx Sleep Apnea No: . CPAP No BIPAP No Do you snore loudly (louder than talking No or can be heard through closed doors)? Do you often feel tired/ fatigued/ No sleepy during daytime? Has anyone observed you stop breathing No during sleep? STOP Results Negative GI Medical History Hx Ulcer No Hx Hepatitis No Hx Cirrhosis No Hx GI Bleed No: ESOPHAGUS STRETCHED Hx Unplanned Weight Loss Yes Genitourinary Medical History Indwelling Catheter in Place on Arrival/ No Admission Hx Renal Disease No Hx Dialysis No Musculoskeletal History Hx Arthritis Yes Hx Rheumatoid Arthritis No Endocrine Medical History Hx Diabetes No Hx Thyroid Disease Yes: ON MED Hematologic Medical History Hx of Blood Transfusion Yes Hx of Transfusion in last 3 Months No Ever experience any problems with No transfusion(s)? Hx of Preganancy in last 3 Months N/A Nurse Filling Out Transfusion & TWOLF Questions: Date: 12/07/17 Time: 17:39 Psycho/Social Medical History Hx Depression No Hx Anxiety No Hx Behavior Disorder No Hx Alcohol Use Yes: 12 BEERS /DAY QUIT 2 YRS AGO Hx Substance Use No Other Medical History Hx Blood Disorders No Hx Anemia Yes Hx Cancer Yes: throat/neck cancer/ RADIATION [place] Hx Drug Resistant Organism No Wound/Pressure Injury Present on Arrival Yes /Admission Query Text:If yes, chart assessment in Shift/Clinical Findings Central Line/PICC/VAD Present on Arrival Yes /Admission Antibiotics within last 7 days? No Risk for Readmission Number of Risk Factors 7 At Risk for Readmission Patient is At Risk For Readmission Patient is eligible for Call Back Y Past Medical History (Last Reviewed 11/27/17 @ 09:38 by Carlota Miguel) Anemia (Acute) Chicken pox (Acute) Dysphagia (Acute) Hypernatremia (Acute) Hyponatremia (Acute) Hypothyroidism (Acute) LEFT WRIST SURGERY (Acute) Laryngeal cancer (Acute) Lymphadenitis (Acute) Measles (Acute) Mumps (Acute) Status post insertion of percutaneous endoscopic gastrostomy (PEG) tube (Acute) Past Surgical History (Last Reviewed 11/27/17 @ 09:38 by Carlota Miguel) History of hernia repair (Acute) History of thoracentesis (Acute) Paternal Family History: Family History (Last Reviewed 11/27/17 @ 09:38 by Carlota Miguel) Father Heart disease Family History: Heart Disease - Maternal Family History: Family History (Last Reviewed 11/27/17 @ 09:38 by Carlota Miguel) Father Heart disease Family History: No pertinent history - Social History Lives: With Family Smoking Status: Former smoker - Quit 3 years ago. Had about a 37.5-pack-year smoking history. Alcohol: None - Quit 3 years ago Allergies/Adverse Reactions: Allergy/AdvReac Type Severity Reaction Status Date / Time Iodinated Contrast- Oral and Allergy Mild Rash Verified 12/07/17 14:52 IV Dye [CT] Review of Systems Constitutional:: Reports: Weakness, Fatigue, Weight loss - Each. Denies: Fever , Sweats, Appetite change, Chills Cardiovascular:: Reports: Chest pain - Site of the Pleurx cath, Dyspnea on exertion. Denies: Palpitations, Orthopnea, PND, Shortness of breath Respiratory: Reports: Cough, Shortness of Breath, Shortness of breath upon exertion. Denies: Hemoptysis, Wheezing Gastrointestinal:: Denies: Abdominal pain, Nausea, Vomiting, Diarrhea, Constipation, Hematochezia Genitourinary: Denies: Dysuria, Hematuria, 15, Flank pain Musculoskeletal:: Denies: Back pain, Myalgia, Arthralgia Skin: Denies: Rash, Skin Changes, Wounds Neurological:: Denies: Headache, Dizziness, Visual changes, Tinnitus, Hearing loss Psychiatric: Denies: Anxiety, Depression, Homicidal Ideations, Suicidal Ideations Vital Signs Height 5 ft 7 in Weight: 57.1 kg Weight in Pounds 125.9 lbs Pulse Ox 92 Temperature 98.1 F Pulse Rate 84 Respiratory Rate 20 Blood Pressure 123/66 Blood Pressure Position Semi-Fowlers - Physical Exam General: Alert, Oriented x3, No apparent distress, - - Frail, thin, hoarse HEENT: Atraumatic, PERRLA, EOMI, Normocephalic Oropharynx:: Dry mucosa Neck:: Supple, Trachea midline, - - Port okay. Negative for: JVD, bilateral Cardiac:: Regular rate, Regular rhythm, Normal S1, Normal S2. Negative for: Murmur Lungs: Clear to auscultation, Diminished, Excusion symmetrical. Negative for: Rhonchi, Wheezes Abdomen:: Soft, Non-tender, Non-distended, - - Feeding tube. Negative for: Hepatosplenomegaly Extremities:: Negative for: Cyanosis, Edema Neurological: Neuro grossly intact Skin:: Negative for: Lesions, Rash, Petechiae, Ecchymosis Psychiatric:: Appropriate affect, Euthymic Lymphatics:: Negative for: Cervical lymphadenopathy, Supraclavicular lymphadenopathy Laboratory Data: Microbiology 12/08/17 09:26 Gram Stain - Final Incision/Surgical Site Laboratory Tests 3 12/08/17 12/08/17 12/08/17 Range/Units 05:45 04:40 04:40 WBC 0.7 L* (4.4-11.0) K/mm3 RBC 2.24 L (4.6-6.2) M/mm3 Hgb 6.4 L (13.0-16.5) g/dl Hct 20.1 L (40-54) % MCV 89.7 (80-94) fL MCH 28.6 (27.0-32.0) pg MCHC 31.8 L (32-36) g/gl RDW 17.7 H (11.6-14.6) % RDW Differential 52.8 H (35.1-43.9) fl Plt Count 97 L (150-450) K/mm3 MPV 9.3 (6.2-12.0) fl Differential Comment SCANNED Diff Path Review Reviewed Creatinine 0.75 (0.70-1.30) mg/dL Estim Creat Clear Calc 82.48 ml/min Est GFR (MDRD) Af Amer 136 (>60) mL/min Est GFR (MDRD) Non-Af 112 (>60) mL/min Blood Type O NEGATIVE Antibody Screen NEGATIVE Crossmatch See Detail Diagnostic Data: Diagnostic Data Chest X-Ray 12/07/17 15:07 IMPRESSION: Significantly decrease in size of the previous large left pleural effusion. Presently, there is a moderate amount of pleural fluid on the left side. Left chest tube in place. There is no pneumothorax. Right lung is clear. Electronically Signed: Jn Dubon MD at 16:00 EDT , Service support , ADDENDUM: 12/07/17 1607 IMPRESSION: Significantly decrease in size of the previous large left pleural effusion. Presently, there is a moderate amount of pleural fluid on the left side. Left chest tube in place. There is no pneumothorax. Right lung is clear. Electronically Signed: Jn Dubon MD at 16:00 EDT , Service support , Assessment and Plan 62-year-old male with: 1. Non-small cell lung cancer, clinical stage IIIB on combined modality chemoradiation. Will hold chemotherapy and radiation this week due to severe pancytopenia and left Pleurx cath infection. 2. Pancytopenia severe due to recent chemotherapy and radiation on top of anemia of chronic disease. Chemo and radiation will be held this week to allow for bone marrow recovery. A)Transfused with packed red blood cells to a target hemoglobin above 7-8 g per DL depending on symptomatology. B) Will start growth factor support with Granix (5 mg/kg body weight subcu daily ) until neutrophil recovery above 1000 for 3 successive days. C) Prophylactic platelet transfusion if less than 10 K or active bleeding. 3. Broad-spectrum antibiotic cover as per primary service. 4. Continue tube feeds. 5. Venous thromboembolism prophylaxis, okay to use pharmacologic agent as long as platelet count above 50,000. Patient encouraged to ambulate. Thank you for involving me in his care, will follow-up during hospital stay and after discharge Medications: Prescriptions This Visit Medication Instructions Recorded Clonazepam [Klonopin] 0.5 mg PO TID 12/07/17 Medications Added to Medication List This Visit Category Date Time Status Dexamethasone [Decadron] Med 12/08/17 08:00 Active 4 mg GT DAILY@0800 Tbo-Filgrastim [Granix] Med 12/08/17 11:00 Active 300 mcg SC DAILY Primary Care Provider: ROYCE Montero Referring Provider:
--- NOTE | 2017-12-08 20:36 | PCM.PROGNOTE ---
Patient Problems: Active and Suspected Problems (Last Reviewed 11/27/17 @ 09:38 by Carlota Miguel) Pancytopenia (Acute) Subjective: Patient seen and examined today, was given one unit PRBC's today, I noted oncology note. Cultures are pending on the patient's left Pleurx catheter wound. Patient is currently on Zosyn. Review of the patient's old culture results showed the patient had MRSA in his sputum and right parotid wound in the past. - Physical Exam General: Alert, Oriented x3, Cooperative, No apparent distress, Well developed HEENT: Atraumatic, PERRLA, EOMI, Normocephalic Oral: Moist Mucosa Neck: Supple, No JVD, Negative Carotid Bruits, No Nuchal Rigidity, Trachea Midline, Thyroid Normal Size and Texture Lungs: Clear to auscultation, Normal air movement, No rhonchi, No wheeze Cardiovascular: Regular rate, Regular Rhythm, Normal S1, Normal S2, No murmurs, No Ectopic Activity Abdomen: Bowel Sounds Present, Soft, Non Tender, Non-Distended, No hernias noted Extremities: No clubbing, No cyanosis, No edema, Capillary Refill Less than 3 Seconds Skin: No rashes, No breakdown Musculoskeletal: Cachexia, Muscle Wasting Neurological: Cranial nerves II-XII grossly intact, Neuro grossly intact, Muscle tone normal, Sensory exam intact to light touch and pain Psych/Mental Status: Normal Affect, Appropriate, Alert and oriented to time, place, person, mood and affect Vital Signs Temp Pulse Resp BP Pulse Ox 98.2 F 80 18 128/78 H 98 12/08/17 18:12 12/08/17 18:12 12/08/17 18:12 12/08/17 18:12 12/08/17 18:12 Oxygen Delivery Method Room Air Weight: 57.1 kg Body Mass Index (BMI) 19.7 Intake and Output for Last 24 Hours 12/06/17 12/07/17 12/08/17 23:59 23:59 23:59 Intake Total 740 / 740 5930 / 5930 Output Total 0 / 0 500 / 500 Balance 740 / 740 5430 / 5430 Microbiology Past 72 Hours 12/08/17 09:26 Gram Stain - Final Incision/Surgical Site Laboratory Tests Past 24 Hrs 07/23/18 07/23/18 07/23/18 04:40 04:40 05:45 WBC 0.7 L* RBC 2.24 L Hgb 6.4 L Hct 20.1 L MCV 89.7 MCH 28.6 MCHC 31.8 L RDW 17.7 H RDW Differential 52.8 H Plt Count 97 L MPV 9.3 Differential Comment SCANNED Diff Path Review Reviewed Creatinine 0.75 Estim Creat Clear Calc 82.48 Est GFR (MDRD) Af Amer 136 Est GFR (MDRD) Non-Af 112 Blood Type O NEGATIVE Antibody Screen NEGATIVE Crossmatch See Detail Medical Necessity - Tobacco Use Smoking Status: Former smoker - Quit 3 years ago. Had about a 37.5-pack-year smoking history. Assessment/Plan All Active Problems (Last Reviewed 11/27/17 @ 09:38 by Carlota Miguel) Atrial fibrillation and flutter (Resolved) Cellulitis (Acute) Pancytopenia (Acute) #1 infected left Pleurx catheter site-catheter now removed, patient remains on Zosyn, await culture results #2 pancytopenia-secondary to chemotherapy for non-small cell lung cancer #3 non-small cell lung cancer #4 hyponatremia-labs will be monitored Code Visit Inpatient E&M: 04904 Subs Hosp L2
[2017-12-08] MEDS: Heparin Injection (Vial) 5,000 UNIT/ML VIAL 5000 UNIT SC (22:18)
[2017-12-09] MEDS: 0.9% Normal Saline 1,000 ML 150 ML IV (00:45)
[2017-12-09] MEDS: oxyCODONE 5 MG Tablet 10 MG GT ×2 (05:00→22:19)
[2017-12-09] MEDS: Levothyroxine 150 MCG Tablet GT (05:00)
[2017-12-09] MEDS: Piperacil/Tazobactam 3.375 GM/50 ML ML IV ×3 (05:00→23:30)
[2017-12-09 05:06] VITALS: BP 126/71; PULSE 72; RESP 16; TEMP 36.8; O2SAT 97
[2017-12-09 06:24] LABS: Absolute Lymphocyte Count 0.06 X10^3/ul (0.83-4.51); Absolute Neutrophil Count 0.3 X10^3/uL (2.0-7.7); Hematocrit 22.8 % (40-54); Hemoglobin 7.3 g/dl (13.0-16.5); Lymphocyte # 0.06 X10^3/ul (4.0); Lymphocyte % 13.3 % (19-41); Mean Corpuscular Volume 87.4 fL (80-94); Mean Platelet Vol. 8.6 fl (6.2-12.0); Monocyte# 0.02 X10^3/uL; Monocyte% 4.4 % (0-10); Neutrophil # 0.34 X10^3/uL (2.7-7.7); Neutrophil % 75.6 % (47-70); Platelet Count 76 K/mm3 (150-450); RBC Distribution Width CV 18.4 % (11.6-14.6); RBC Distribution Width SD 53.6 fl (35.1-43.9); Red Blood Count 2.61 M/mm3 (4.6-6.2); White Blood Count 0.5 K/mm3 (4.4-11.0)
[2017-12-09 06:28] LABS: POSITIVE COUNT YES; POSITIVE DIFFERENTIAL YES
[2017-12-09 06:29] LABS: Differential Indicated SCAN CRITERIA MET; POSITIVE MORPHOLOGY YES
[2017-12-09 07:02] LABS: Differential Comment SCANNED; Platelet Estimate SLT DEC (ADEQ)
--- NOTE | 2017-12-09 07:02 | PN.SURG_ITS ---
Patient Problems: Active and Suspected Problems (Last Reviewed 11/27/17 @ 09:38 by Carlota Miguel) Pancytopenia (Acute) Subjective: less pain in the area - Physical Exam General: Alert, Oriented x3 Lungs: Diminished - at the left eycf-[id number]-[id number] erythema along the tract. No significant drainage on the bandage at the exit site. Bandage remians in place Vital Signs Temp Pulse Resp BP Pulse Ox 98.2 F 72 16 126/71 H 97 12/09/17 05:06 12/09/17 05:06 12/09/17 05:06 12/09/17 05:06 12/09/17 05:06 Oxygen Delivery Method Room Air Weight: 57.1 kg Body Mass Index (BMI) 19.7 Intake and Output for Last 24 Hours 12/07/17 12/08/17 12/09/17 23:59 23:59 23:59 Intake Total 740 / 740 6780 / 6780 3329 / 3329 Output Total 0 / 0 500 / 500 1500 / 1500 Balance 740 / 740 6280 / 6280 1829 / 1829 Microbiology Past 72 Hours 12/08/17 09:26 Gram Stain - Final Incision/Surgical Site Laboratory Tests Past 24 Hrs 12/08/17 12/08/17 12/09/17 04:40 05:45 05:50 WBC 0.5 L* RBC 2.61 L Hgb 7.3 L Hct 22.8 L MCV 87.4 MCH 28.0 MCHC 32.0 RDW 18.4 H RDW Differential 53.6 H Plt Count 76 L MPV 8.6 Immature Gran % (Auto) 6.700 H Neut % (Auto) 75.6 H Lymph % (Auto) 13.3 L [place] % (Auto) 4.4 Eos % (Auto) 0.0 Baso % (Auto) 0.0 Absolute Neuts (auto) 0.3 L Absolute Lymphs (auto) 0.06 L Total Counted Pending Diff Path Review Reviewed Blood Type O NEGATIVE Antibody Screen NEGATIVE Crossmatch See Detail Medical Necessity - Tobacco Use Smoking Status: Former smoker - Quit 3 years ago. Had about a 37.5-pack-year smoking history. Assessment/Plan All Active Problems (Last Reviewed 11/27/17 @ 09:38 by Carlota Miguel) Non-small cell carcinoma of left lung, stage 3 (Acute) Atrial fibrillation and flutter (Acute) Pleural effusion (Acute) Chemotherapy management, encounter for (Acute) Cellulitis (Acute) Pancytopenia (Acute) cellulitis at chest insertion site, neutropenia, lung cancer. - POD # 1 Status post removal of tunneled catheter. The patient was admitted and started on IV antibiotics. yesterday, the tract looked no better and there was what appeared to be some bubbling and purulence at the insertion site, so the patient was taken to the operating suite for removal of the catheter The site overall looks better today and the patient notes decreased pain. We are awaiting cultures.
[2017-12-09 08:04] VITALS: BP 123/72; PULSE 79; RESP 18; TEMP 37.4; O2SAT 96
[2017-12-09] MEDS: clonazePAM 0.5 MG Tablet GT ×3 (08:09→22:19)
[2017-12-09] MEDS: Heparin Injection (Vial) 5,000 UNIT/ML VIAL 5000 UNIT SC ×2 (08:12→22:20)
[2017-12-09] MEDS: Omeprazole 20 MG Capsule GT (08:12)
[2017-12-09 08:22] VITALS: PULSE 79
[2017-12-09] MEDS: TBO-FILGRASTIM 300 MCG/0.5 ML ML SC (08:41)
--- NOTE | 2017-12-09 13:49 | CASEMGMT ---
Social Work Note JAZLYN met with pt as pt could be good candidate for Palliative Care. SW introduced self and role at [facility]. Pt is alert and orientated x3. SW educated pt on Palliative care and provided pt with Palliative Care brochure. At this time pt is unsure if he would like referral made for Palliative Care. SW encouraged pt to review Palliative Care referral and this worker will follow up with pt tomorrow to determine if she would like a referral made. Pt states understanding. Adriana Beltran [employer]EL ASSEMBLER, EMPLOYEE BENEFITS COORDINATOR
[2017-12-09 14:21] VITALS: BP 111/70; PULSE 71; RESP 18; TEMP 36.9; O2SAT 97
[2017-12-09 16:30] LABS: Pathologist Review Reviewed
--- NOTE | 2017-12-09 16:50 | PCM.RX.CS ---
Consult Pharmacy has been consulted to manage selected antiobiotic: Vancomycin Type of Consult: New start Suspected Infection: Skin/Soft tissue, Other - PANCYTOPENIA Prior Doses of Antibiotics Received/Current Regimen: NO PRIOR DOSES OF VANCOMYCIN ADMINISTERED Labs: Sodium 130 mmol/L (136-145) L 12/07/17 16:05 Potassium 4.5 mmol/L (3.5-5.1) 12/07/17 16:05 Chloride 94 mmol/L (98-107) L 12/07/17 16:05 Carbon Dioxide 31.0 mmol/L (21.0-32.0) 12/07/17 16:05 Anion Gap 5 (5-15) 12/07/17 16:05 BUN 27 mg/dL (7-18) H 12/07/17 16:05 Creatinine 0.75 mg/dL (0.70-1.30) 12/08/17 04:40 Est GFR (MDRD) Af Amer 136 mL/min (>60) 12/08/17 04:40 Est GFR (MDRD) Non-Af 112 mL/min (>60) 12/08/17 04:40 BUN/Creatinine Ratio 31.7 RATIO (10-20) H 12/07/17 16:05 Glucose 117 mg/dL (74-106) H 12/07/17 16:05 Microbiology: Microbiology 12/08/17 09:26 Incision/Surgical Site Gram Stain - Final 12/08/17 09:26 Incision/Surgical Site Wound Culture - Preliminary Staphylococcus aureus 12/08/17 09:26 Incision/Surgical Site Gram Stain - Final Weight used for dosin.1 kg Estimated Creatinine Clearance: 82ML/MIN Goal Trough: 15-20 mcg/mL Pharmacy Plan for Drug Dosing: Pharmacy to dose vancomycin per consult for the treatment of suspected cellulitis/pancytopenia in a lung cancer patient. Prior to initiation of vancomycin, no previous doses have been administered. Will plan on targeting a trough of 15-20 and will continue to monitor the patient on a daily basis. PLAN/RECOMMENDATIONS 1. Vancomycin initial dose 1750mg IV x1 12/09 @1800 2. Scheduled vancomycin 1000mg IV Q12hrs to start 12/10 @0600 3. Trough scheduled prior to 4th total dose 12/11 @0530 4. Pharmacy Service will continue to monitor and adjust dosing as required.
--- NOTE | 2017-12-09 19:07 | PN_ITS ---
Patient Problems: Active and Suspected Problems (Last Reviewed 11/27/17 @ 09:38 by Carlota Miguel) Pancytopenia (Acute) Subjective: Patient seen and examined today, he remains pancytopenic, hemoglobin does remain above 7. Patient's Pleurx catheter culture site returned positive for staph aureus today-since patient has had a past history of MRSA on previous cultures, I contacted ID and have decided to start the patient on IV vancomycin in addition to his Zosyn. I also discussed this with general surgery. - Physical Exam General: Alert, Oriented x3, Cooperative, No apparent distress, Well developed HEENT: Atraumatic, PERRLA, EOMI, Normocephalic Oral: Moist Mucosa Neck: Supple, No JVD, No Nuchal Rigidity, Trachea Midline, Thyroid Normal Size and Texture Lungs: Clear to auscultation, No rhonchi, No wheeze, No rales, Diminished - Diminished breath sounds at the bases bilaterally Cardiovascular: Regular rate, Regular Rhythm, Normal S1, Normal S2, No murmurs, No Ectopic Activity, PMI Normal, No rub noted, No Gallop Abdomen: Bowel Sounds Present, Soft, Non Tender, Non-Distended, No hernias noted Extremities: No clubbing, No cyanosis, No edema, Capillary Refill Less than 3 Seconds Skin: No rashes, No breakdown Musculoskeletal: Cachexia, Muscle Wasting Neurological: Cranial nerves II-XII grossly intact, Neuro grossly intact, Sensory exam intact to light touch and pain, Coordination normal Psych/Mental Status: Normal Affect, Appropriate, Alert and oriented to time, place, person, mood and affect Vital Signs Temp Pulse Resp BP Pulse Ox 98.5 F 71 18 111/70 97 12/09/17 14:21 12/09/17 14:21 12/09/17 14:21 12/09/17 14:21 12/09/17 14:21 Oxygen Delivery Method Room Air Weight: 57.1 kg Body Mass Index (BMI) 19.7 Intake and Output for Last 24 Hours 12/07/17 12/08/17 12/09/17 23:59 23:59 23:59 Intake Total 740 / 740 6780 / 6780 4042.5 / 4042.5 Output Total 0 / 0 500 / 500 2600 / 2600 Balance 740 / 740 6280 / 6280 1442.5 / 1442.5 Microbiology Past 72 Hours 12/08/17 09:26 Gram Stain - Final Incision/Surgical Site Wound Culture - Preliminary Staphylococcus aureus 12/08/17 09:26 Gram Stain - Final Incision/Surgical Site Laboratory Tests Past 24 Hrs 12/09/17 05:50 WBC 0.5 L* RBC 2.61 L Hgb 7.3 L Hct 22.8 L MCV 87.4 MCH 28.0 MCHC 32.0 RDW 18.4 H RDW Differential 53.6 H Plt Count 76 L MPV 8.6 Immature Gran % (Auto) 6.700 H Neut % (Auto) 75.6 H Lymph % (Auto) 13.3 L [place] % (Auto) 4.4 Eos % (Auto) 0.0 Baso % (Auto) 0.0 Absolute Neuts (auto) 0.3 L Absolute Lymphs (auto) 0.06 L Total Counted Not Reportable Differential Comment SCANNED Diff Path Review Reviewed Platelet Estimate SLT DEC Medical Necessity - Tobacco Use Smoking Status: Former smoker - Quit 3 years ago. Had about a 37.5-pack-year smoking history. Assessment/Plan All Active Problems (Last Reviewed 11/27/17 @ 09:38 by Carlota Miguel) Atrial fibrillation and flutter (Resolved) Cellulitis (Acute) Pancytopenia (Acute) #1 infected left Pleurx catheter site-catheter now removed, patient remains on Zosyn but vancomycin was added due to positive culture for staph aureus from wound site, sensitivity on the staph aureus at this time is pending, ID will see the patient #2 pancytopenia-secondary to chemotherapy for non-small cell lung cancer- recheck CBC in a.m., continue Granix #3 non-small cell lung cancer #4 hyponatremia-labs will be monitored Code Visit Inpatient E&M: 60321 Subs Hosp L2
[2017-12-09 20:22] VITALS: BP 117/69; PULSE 80; RESP 20; TEMP 37.2; O2SAT 97
[2017-12-10] VITALS (7 sets, daily range): BP systolic 110–138; BP diastolic 67–76; PULSE 80–92; RESP 16–20; TEMP 35.8–37.7; O2SAT 95–100
[2017-12-10] MEDS: Albuterol 2.5 MG/3 ML VIAL.NEB. INHALATION (01:30)
[2017-12-10] MEDS: BMX LIQUID 180 ML 15 ML PO ×3 (01:31→22:29)
[2017-12-10] MEDS: 0.9% NaCl VAD Flush IV (06:09)
--- NOTE | 2017-12-10 06:11 | NURSING ---
Dr Padron was in pt c/o indigestion..Checked his meds increased his Gerd Med.
[2017-12-10] MEDS: Vancomycin IV 1,000 MG/200 ML BAG 200 MG IV ×2 (06:38→17:10)
[2017-12-10] MEDS: Piperacil/Tazobactam 3.375 GM/50 ML ML IV (06:38)
[2017-12-10] MEDS: clonazePAM 0.5 MG Tablet GT ×3 (06:41→22:29)
[2017-12-10] MEDS: Levothyroxine 150 MCG Tablet GT (06:41)
[2017-12-10 06:53] LABS: Absolute Neutrophil Count 0.1 X10^3/uL (2.0-7.7); Basophil# 0.01 X10^3/uL; Basophil% 2.8 % (0-1); Hematocrit 23.1 % (40-54); Hemoglobin 7.3 g/dl (13.0-16.5); Lymphocyte % 27.8 % (19-41); Mean Corp Hgb Conc 31.6 g/gl (32-36); Mean Corpuscular Hgb 27.8 pg (27.0-32.0); Mean Corpuscular Volume 87.8 fL (80-94); Mean Platelet Vol. 10.1 fl (6.2-12.0); Monocyte# 0.06 X10^3/uL; Monocyte% 16.7 % (0-10); Neutrophil # 0.09 X10^3/uL (2.7-7.7); Neutrophil % 24.9 % (47-70); Platelet Count 70 K/mm3 (150-450); RBC Distribution Width CV 17.9 % (11.6-14.6); RBC Distribution Width SD 52.5 fl (35.1-43.9); Red Blood Count 2.63 M/mm3 (4.6-6.2)
[2017-12-10 06:55] LABS: Differential Indicated SCAN CRITERIA MET; POSITIVE COUNT YES; POSITIVE DIFFERENTIAL YES; POSITIVE MORPHOLOGY YES; White Blood Count 0.4 K/mm3 (4.4-11.0)
[2017-12-10 07:09] LABS: Anion Gap 7 (5-15); BUN 24 mg/dL (7-18); BUN/Creat Ratio 30.9 RATIO (10-20); Calcium,Total 8.4 mg/dL (8.5-10.1); Chloride 98 mmol/L (98-107); Creatinine, Serum 0.78 mg/dL (0.70-1.30); EST Glomerular Filtration Rate 108 mL/min (>60); Est Glom Filt Rate - Afr Amer 131 mL/min (>60); Estimated Creatinine Clearance 79.31 ml/min; Glucose 70 mg/dL (74-106); Potassium 3.8 mmol/L (3.5-5.1); Sodium Level 136 mmol/L (136-145)
[2017-12-10 07:18] LABS: Differential Comment SCANNED
[2017-12-10 07:19] LABS: Rouleaux 2+
[2017-12-10] MEDS: Omeprazole 20 MG Capsule 40 MG GT (09:04)
[2017-12-10] MEDS: TBO-FILGRASTIM 300 MCG/0.5 ML ML SC (09:05)
[2017-12-10] MEDS: Heparin Injection (Vial) 5,000 UNIT/ML VIAL 5000 UNIT SC (09:05)
--- NOTE | 2017-12-10 11:40 | PCM.PN.SRG ---
Patient Problems: Active and Suspected Problems (Last Reviewed 11/27/17 @ 09:38 by Carlota Miguel) Pancytopenia (Acute) Subjective: basin tender - Physical Exam General: Alert, Oriented x3 Lungs: Diminished - left base - pleurex site slightly red Vital Signs Temp Pulse Resp BP Pulse Ox 99.1 F 82 16 138/72 H 95 12/10/17 09:01 12/10/17 09:01 12/10/17 09:01 12/10/17 09:01 12/10/17 09:01 Oxygen Delivery Method Room Air Weight: 57.1 kg Body Mass Index (BMI) 19.7 Intake and Output for Last 24 Hours 12/08/17 12/09/17 12/10/17 23:59 23:59 23:59 Intake Total 6780 / 6780 4042.5 / 4042.5 1081 / 1081 Output Total 500 / 500 2600 / 2600 1475 / 1475 Balance 6280 / 6280 1442.5 / 1442.5 -394 / -394 Microbiology Past 72 Hours 12/08/17 09:26 Gram Stain - Final Incision/Surgical Site Wound Culture - Final Meth. resistant Staph. aureus Anaerobic Culture - Final No anaerobic bacteria isolated. 12/08/17 09:26 Gram Stain - Final Incision/Surgical Site Wound Culture - Preliminary Staphylococcus aureus Anaerobic Culture - Preliminary Laboratory Tests Past 24 Hrs 12/09/17 12/10/17 12/10/17 05:50 06:00 06:20 WBC 0.4 L* RBC 2.63 L Hgb 7.3 L Hct 23.1 L MCV 87.8 MCH 27.8 MCHC 31.6 L RDW 17.9 H RDW Differential 52.5 H Plt Count 70 L MPV 10.1 Immature Gran % (Auto) 27.800 H Neut % (Auto) 24.9 L Lymph % (Auto) 27.8 [place] % (Auto) 16.7 H Eos % (Auto) 0.0 Baso % (Auto) 2.8 H Absolute Neuts (auto) 0.1 L Absolute Lymphs (auto) 0.10 L Total Counted Not Reportable Differential Comment SCANNED Diff Path Review Reviewed September foll Rouleaux 2+ Sodium 136 Potassium 3.8 Chloride 98 Carbon Dioxide 31.0 Anion Gap 7 BUN 24 H Creatinine 0.78 Estim Creat Clear Calc 79.31 Est GFR (MDRD) Af Amer 131 Est GFR (MDRD) Non-Af 108 BUN/Creatinine Ratio 30.9 H Glucose 70 L Calcium 8.4 L Medical Necessity - Tobacco Use Smoking Status: Former smoker - Quit 3 years ago. Had about a 37.5-pack-year smoking history. Assessment/Plan All Active Problems (Last Reviewed 11/27/17 @ 09:38 by Carlota Miguel) Atrial fibrillation and flutter (Resolved) Cellulitis (Acute) Pancytopenia (Acute) cellulitis at chest insertion site, neutropenia, lung cancer. - POD # 1 Status post removal of tunneled catheter. The patient was admitted and started on IV antibiotics. yesterday, the tract looked no better and there was what appeared to be some bubbling and purulence at the insertion site, so the patient was taken to the operating suite for removal of the catheter The site overall looks better today and the patient notes decreased pain. Culture MRSA - on appropriate Abx.
--- NOTE | 2017-12-10 13:19 | CON.PCM_ITS ---
Problem List (1) Cellulitis Status: Acute Reason for Consult: mrsa Consulted by: Dr. Hong History of Present Illness: The patient is a 62 year old M with NSCLC with malignant effusion, had L pleurx placed about [address] Padron. For past 2 weeks noticed some redness and pain around drain site. No drainage around the tube. No fever or chills. Some SOB. Output from tube was clear. Redness worsened, came to ED, cx (+) for MRSA and drain removed 12/08. Feeling better, abx narrowed to vanc. Full ROS performed and neg except as noted above. No issues with port. - Medical History Past Medical History (Chronic Problems): Chronic Problems (Last Reviewed 11/27/17 @ 09:38 by Carlota Miguel) PEG (percutaneous endoscopic gastrostomy) status (Chronic) Tobacco dependence in remission (Chronic) Pulmonary nodule, left (Chronic) History of laryngeal cancer (Chronic) Non-small cell carcinoma of left lung, stage 3 (Chronic) Dysphagia (Chronic) Chronic anemia (Chronic) Pleural effusion (Chronic) Chemotherapy management, encounter for (Chronic) Allergies/Adverse Reactions: Allergies Iodinated Contrast- Oral and IV Dye [CT] Allergy (Mild, Verified 12/07/17 14:52) Rash Home Medications: Ambulatory Orders Medication Instructions Recorded Albuterol IH (ProAir) [Proair Hfa] 2 puff INHALATION Q6H PRN 11/10/17 Dexamethasone [Decadron] 1 tablet PO DAILY@0800 11/10/17 Levothyroxine [Synthroid] 1 tablet PO DAILY 11/10/17 Ondansetron [Zofran Odt] 4 mg PO Q8H PRN PRN #30 tab 11/17/17 Oxycodone HCl/Acetaminophen 1 tablet PO Q6H PRN #90 tablet 11/17/17 [Percocet 5-325] Polyethylene Glycol 3350 [Miralax] 17 gm PO DAILY #30 packet 11/17/17 Magic Mouth Wash 15 ml PO Q6H PRN PRN #240 ml 11/27/17 Omeprazole [Prilosec] 20 mg PO DAILY #30 cap 12/03/17 Clonazepam [Klonopin] 0.5 mg PO TID 12/07/17 - Social History SMOKING STATUS:: Former smoker Vital Signs Temp Pulse Resp BP Pulse Ox 99.1 F 82 16 138/72 H 95 12/10/17 09:01 12/10/17 09:01 12/10/17 09:01 12/10/17 09:01 12/10/17 09:01 Oxygen Delivery Method Room Air Weight: 57.1 kg Body Mass Index (BMI) 19.7 Microbiology Past 72 Hours 12/08/17 09:26 Gram Stain - Final Incision/Surgical Site Wound Culture - Final Meth. resistant Staph. aureus Anaerobic Culture - Final No anaerobic bacteria isolated. 12/08/17 09:26 Gram Stain - Final Incision/Surgical Site Wound Culture - Preliminary Staphylococcus aureus Anaerobic Culture - Preliminary Laboratory Tests Past 24 Hrs 12/09/17 12/10/17 12/10/17 05:50 06:00 06:20 WBC 0.4 L* RBC 2.63 L Hgb 7.3 L Hct 23.1 L MCV 87.8 MCH 27.8 MCHC 31.6 L RDW 17.9 H RDW Differential 52.5 H Plt Count 70 L MPV 10.1 Immature Gran % (Auto) 27.800 H Neut % (Auto) 24.9 L Lymph % (Auto) 27.8 [place] % (Auto) 16.7 H Eos % (Auto) 0.0 Baso % (Auto) 2.8 H Absolute Neuts (auto) 0.1 L Absolute Lymphs (auto) 0.10 L Total Counted Not Reportable Differential Comment SCANNED Diff Path Review Reviewed September foll Rouleaux 2+ Sodium 136 Potassium 3.8 Chloride 98 Carbon Dioxide 31.0 Anion Gap 7 BUN 24 H Creatinine 0.78 Estim Creat Clear Calc 79.31 Est GFR (MDRD) Af Amer 131 Est GFR (MDRD) Non-Af 108 BUN/Creatinine Ratio 30.9 H Glucose 70 L Calcium 8.4 L - Other Studies Radiology: [] reviewed Other Studies: [] Route of nutrition/ use of supplements: [] Nutritional Intake: [] IV Site: [] Corcoran Catheter: [] - Physical Exam General: Alert, Oriented x3, Cooperative, No apparent distress HEENT: Atraumatic, PERRLA, EOMI Neck: Supple, No Nodes Lungs: Diminished Cardiovascular: Regular rate, Regular Rhythm Abdomen: Bowel Sounds Present, Soft, Non Tender, Non-Distended, - - PEG in place Extremities: No edema Skin: - - L chest former chest tube site with mild redness, no drainage IV Site: Central Line, without redness Musculoskeletal: No Tenderness to Palpation of Joints or Extremities Neurological: Cranial nerves II-XII grossly intact - Assessment/Plan Antibiotics: [] Assessment/Plan: [] Active and Suspected Problems (Last Reviewed 11/27/17 @ 09:38 by Carlota Miguel) Pancytopenia (Acute) MRSA infected chest tube - removed 12/08/[address] Padron. Cont iv vanc. Plan will be for him to go home on po abx. pancytopenia with NSCLC Will follow, thank you.
[2017-12-10 15:32] LABS: Pathologist Review Reviewed
--- NOTE | 2017-12-10 16:52 | PN_ITS ---
Patient Problems: Active and Suspected Problems (Last Reviewed 11/27/17 @ 09:38 by Carlota Miguel) Pancytopenia (Acute) Subjective: Patient was seen and examined today, the sensitivities for the staph aureus reveals that it is MRSA, it is susceptible to Levaquin, tetracycline, and Bactrim. Resistant to clindamycin. Patient has no complaints of any pain at the Pleurx catheter site, he does complain of dry mouth. - Physical Exam General: Alert, Oriented x3, Cooperative, No apparent distress, Well developed HEENT: Atraumatic, PERRLA, EOMI, Normocephalic Oral: Dry Mucosa Neck: Supple, No JVD, No Nuchal Rigidity, Trachea Midline, Thyroid Normal Size and Texture Lungs: Clear to auscultation, No rhonchi, No wheeze, No rales, Diminished - Diminished breath sounds at the bases Cardiovascular: Regular rate, Regular Rhythm, Normal S1, Normal S2, No murmurs, No Ectopic Activity, PMI Normal, No rub noted, No Gallop Abdomen: Bowel Sounds Present, Soft, Non Tender, Non-Distended, No hernias noted Extremities: No clubbing, No cyanosis, No edema, Capillary Refill Less than 3 Seconds Skin: No rashes, No breakdown Musculoskeletal: Cachexia, Muscle Wasting Neurological: Cranial nerves II-XII grossly intact, Neuro grossly intact, Sensory exam intact to light touch and pain, Coordination normal Psych/Mental Status: Normal Affect, Appropriate, Alert and oriented to time, place, person, mood and affect Vital Signs Temp Pulse Resp BP Pulse Ox 96.5 F L 92 16 110/67 95 12/10/17 15:07 12/10/17 15:07 12/10/17 15:07 12/10/17 15:07 12/10/17 15:07 Oxygen Delivery Method Room Air Weight: 57.1 kg Body Mass Index (BMI) 19.7 Intake and Output for Last 24 Hours 12/08/17 12/09/17 12/10/17 23:59 23:59 23:59 Intake Total 6780 / 6780 4042.5 / 4042.5 1407 / 1407 Output Total 500 / 500 2600 / 2600 1775 / 1775 Balance 6280 / 6280 1442.5 / 1442.5 -368 / -368 Microbiology Past 72 Hours 12/08/17 09:26 Gram Stain - Final Incision/Surgical Site Wound Culture - Final Meth. resistant Staph. aureus Anaerobic Culture - Final No anaerobic bacteria isolated. 12/08/17 09:26 Gram Stain - Final Incision/Surgical Site Wound Culture - Preliminary Staphylococcus aureus Anaerobic Culture - Preliminary Laboratory Tests Past 24 Hrs 12/10/17 12/10/17 06:00 06:20 WBC 0.4 L* RBC 2.63 L Hgb 7.3 L Hct 23.1 L MCV 87.8 MCH 27.8 MCHC 31.6 L RDW 17.9 H RDW Differential 52.5 H Plt Count 70 L MPV 10.1 Immature Gran % (Auto) 27.800 H Neut % (Auto) 24.9 L Lymph % (Auto) 27.8 [place] % (Auto) 16.7 H Eos % (Auto) 0.0 Baso % (Auto) 2.8 H Absolute Neuts (auto) 0.1 L Absolute Lymphs (auto) 0.10 L Total Counted Not Reportable Differential Comment SCANNED Diff Path Review Reviewed Rouleaux 2+ Sodium 136 Potassium 3.8 Chloride 98 Carbon Dioxide 31.0 Anion Gap 7 BUN 24 H Creatinine 0.78 Estim Creat Clear Calc 79.31 Est GFR (MDRD) Af Amer 131 Est GFR (MDRD) Non-Af 108 BUN/Creatinine Ratio 30.9 H Glucose 70 L Calcium 8.4 L Medical Necessity - Tobacco Use Smoking Status: Former smoker - Quit 3 years ago. Had about a 37.5-pack-year smoking history. Assessment/Plan All Active Problems (Last Reviewed 11/27/17 @ 09:38 by Carlota Miguel) Atrial fibrillation and flutter (Resolved) Cellulitis (Acute) Pancytopenia (Acute) #1 infected left Pleurx catheter site-catheter now removed, patient's Zosyn was stopped today, he remains on vancomycin at this time, ID is participating in his care #2 pancytopenia-secondary to chemotherapy for non-small cell lung cancer- recheck CBC in a.m., continue Granix #3 non-small cell lung cancer #4 hyponatremia-corrected at this time Code Visit Inpatient E&M: 88469 Subs Hosp L2
[2017-12-10] MEDS: oxyCODONE 5 MG Tablet 10 MG GT (22:34)
[2017-12-11 05:50] VITALS: BP 125/72; PULSE 90; RESP 18; TEMP 37.3; O2SAT 95
[2017-12-11] MEDS: oxyCODONE 5 MG Tablet 10 MG GT ×2 (05:53→21:29)
[2017-12-11] MEDS: Levothyroxine 150 MCG Tablet GT (05:54)
[2017-12-11] MEDS: clonazePAM 0.5 MG Tablet GT ×3 (05:54→21:19)
[2017-12-11] MEDS: 0.9% NaCl VAD Flush IV ×3 (05:55→17:33)
[2017-12-11] MEDS: Vancomycin IV 1,000 MG/200 ML BAG 200 MG IV ×2 (05:55→17:33)
[2017-12-11 06:09] LABS: Vancomycin, Trough Level 15.4 ug/mL (5.0-15.0)
[2017-12-11 06:11] VITALS: RESP 18; O2SAT 95
[2017-12-11] MEDS: Omeprazole 20 MG Capsule 40 MG GT (08:42)
[2017-12-11] MEDS: TBO-FILGRASTIM 300 MCG/0.5 ML ML SC (08:50)
[2017-12-11 09:01] VITALS: BP 124/74; PULSE 108; RESP 20; TEMP 38.1; O2SAT 95
--- NOTE | 2017-12-11 09:09 | PCM.RX.CS ---
Consult Pharmacy has been consulted to manage selected antiobiotic: Vancomycin Type of Consult: Follow-up Suspected Infection: Skin/Soft tissue Prior Doses of Antibiotics Received/Current Regimen: VANCOMYCIN 1000MG IV Q12HRS: 12/10 @0638, 1710 AND 12/11 @0555 Labs: Sodium 136 mmol/L (136-145) 12/10/17 06:00 Potassium 3.8 mmol/L (3.5-5.1) 12/10/17 06:00 Chloride 98 mmol/L (98-107) 12/10/17 06:00 Carbon Dioxide 31.0 mmol/L (21.0-32.0) 12/10/17 06:00 Anion Gap 7 (5-15) 12/10/17 06:00 BUN 24 mg/dL (7-18) H 12/10/17 06:00 Creatinine 0.78 mg/dL (0.70-1.30) 12/10/17 06:00 Est GFR (MDRD) Af Amer 131 mL/min (>60) 12/10/17 06:00 Est GFR (MDRD) Non-Af 108 mL/min (>60) 12/10/17 06:00 BUN/Creatinine Ratio 30.9 RATIO (10-20) H 12/10/17 06:00 Glucose 70 mg/dL (74-106) L 12/10/17 06:00 Vancomycin Trough 15.4 ug/mL (5.0-15.0) H 12/11/17 05:36 Microbiology: Microbiology 12/08/17 09:26 Incision/Surgical Site Gram Stain - Final 12/08/17 09:26 Incision/Surgical Site Wound Culture - Final Meth. resistant Staph. aureus 12/08/17 09:26 Incision/Surgical Site Gram Stain - Final 12/08/17 09:26 Incision/Surgical Site Wound Culture - Final Meth. resistant Staph. aureus 12/08/17 09:26 Incision/Surgical Site Anaerobic Culture - Final No anaerobic bacteria isolated. Weight used for dosin.1 kg Estimated Creatinine Clearance: 79ML/MIN Goal Trough: 15-20 mcg/mL Pharmacy Plan for Drug Dosing: Pharmacy to manage vancomycin per consult for the treatment of a SSTI with (+) MRSA cultures. The patient had a trough drawn which resulted in a value of 15.4 (12hr level). This is adequate given a trough goal of 15-20. Will continue current regimen and re-draw a trough in 4 days to reassess dosing. PLAN/RECOMMENDATIONS 1. Continue vancomycin 1000mg IV Q12hrs 2. Trough scheduled 12/15/17 @0530 to reassess dosing 3.Pharmacy Service will continue to monitor and adjust dosing as required.
--- NOTE | 2017-12-11 10:48 | CT_ITS ---
STUDY: CT CHEST WITH CONTRAST REASON FOR EXAM: Male, 62 years old. Fever, recent chest tube removal. RADIATION DOSAGE (If Supplied By Facility): CTDIvol = ( 8.11 ) mGy, DLP = ( 238.00 ) mGycm TECHNIQUE: Transaxial imaging was performed following intravenous administration of 100 ml of Isovue 300 contrast material. Individualized dose optimization techniques were used for this CT. COMPARISON: 11/12/2017 FINDINGS: Previous noted left-sided chest tube has been removed. The right lung is normally expanded without a superimposed process. There is no organized infiltrate, or suspicious noncalcified mass or nodule When compared to the previous study, there is been significant improvement in the left hemithorax but there remains a significant consolidation and effusion involving the inferior aspect of the left lower lobe. The upper half of the left lung shows some nonspecific pleural thickening and atelectatic changes. Normal heart and pericardium. Normal mediastinum. Normal hilar regions. Normal enhanced pulmonary arteries. Normal aorta arch and descending thoracic aorta. There are multi-level degenerative changes of the thoracic spine. Limited cuts through the upper abdomen suggests a PEG tube is placed CT/Chest WITH Contrast IMPRESSION: There is a combination of consolidation and effusion in the inferior half of the left hemithorax. This represents a significant improvement when compared to the previous study but follow-up is recommended to assure complete resolution. Right lung is clear and well expanded No suspicious axillary or mediastinal adenopathy Degenerative bony changes Electronically Signed: Nathaniel Miramontes MD at 13:36 EDT , Service support ,
--- NOTE | 2017-12-11 10:50 | PCM.PN.ID ---
Patient Problems: Active and Suspected Problems (Last Reviewed 11/27/17 @ 09:38 by Carlota Miguel) Pancytopenia (Acute) Subjective: Feeling ok, no chills, breathing stable, no n/v/d. - Physical Exam General: Alert, Cooperative, No apparent distress Lungs: Clear to auscultation, Diminished Cardiovascular: Regular rate, Regular Rhythm Abdomen: Soft, Non Tender, Non-Distended Skin: No rashes Vital Signs Temp Pulse Resp BP Pulse Ox 100.6 F H 108 H 20 H 124/74 H 95 12/11/17 09:01 12/11/17 09:01 12/11/17 09:01 12/11/17 09:01 12/11/17 09:01 Oxygen Delivery Method Room Air Weight: 57.1 kg Body Mass Index (BMI) 19.7 Intake and Output for Last 24 Hours 12/09/17 12/10/17 12/11/17 23:59 23:59 23:59 Intake Total 4042.5 / 4042.5 3493 / 3493 130 / 130 Output Total 2600 / 2600 3025 / 3025 300 / 300 Balance 1442.5 / 1442.5 468 / 468 -170 / -170 Microbiology Past 72 Hours 12/08/17 09:26 Gram Stain - Final Incision/Surgical Site Wound Culture - Final Meth. resistant Staph. aureus Anaerobic Culture - Final No anaerobic bacteria isolated. 12/08/17 09:26 Gram Stain - Final Incision/Surgical Site Wound Culture - Final Meth. resistant Staph. aureus Anaerobic Culture - Final No anaerobic bacteria isolated. Laboratory Tests Past 24 Hrs 12/10/17 12/11/17 06:20 05:36 Diff Path Review Reviewed Vancomycin Trough 15.4 H Medical Necessity - Tobacco Use Smoking Status: Former smoker - Quit 3 years ago. Had about a 37.5-pack-year smoking history. Route of nutrition/ use of supplements: [] Nutritional Intake: [] IV Site: [] Corcoran Catheter: [] - Assessment/Plan Antibiotics: [] Assessment/Plan: [] Active and Suspected Problems (Last Reviewed 11/27/17 @ 09:38 by Carlota Miguel) Pancytopenia (Acute) MRSA infected chest tube - removed 12/08/[address] Padron. Cont iv vanc. Now with fever to 100.6. Will repeat bcx, check CT chest to look for abscess. If fever recurs, will need to add zosyn for neutropenic fever. pancytopenia with NSCLC Will follow, d/w primary team
[2017-12-11] MEDS: DiphenhydrAMINE 50 MG/ML Syringe 25 MG IV (11:46)
[2017-12-11 12:00] VITALS: RESP 18
[2017-12-11 14:52] VITALS: BP 90/59; PULSE 90; RESP 18; TEMP 37.4; O2SAT 96
--- NOTE | 2017-12-11 16:21 | CASEMGMT ---
Social Work Note Charge Nurse Yareli updated this worker that pt's son Elias would like this worker to call him. SW placed a call to pt's son Elias. Elias wanted this worker to talk to his . SW spoke with Elias's . Elias's wanted to know the different options for the pt. Elias's has concerns about pt's current need for care and has concerns that since pt is positive for MRSA if she and her will be able to take care of pt properly. SW explained SNF, HHC and private duty aides. SW informed Elias's that as long as pt is alert and orientated and able to make decisions he can decide what he would like to do about discharge plans. SW informed Elias's that currently pt has denied SNF placement and plans to discharge home. SW informed Elias's of Medicare requirements and how long Medicare pays for SNF. SW explained that HHC comes out about once-twice a week and educated Elias's on private duty aides. Elias's states understanding. SW encouraged Elias's to have Elias speak to pt about Elias's concerns to see if pt would be agreeable to SNF, HHC, or private duty aides. Elias's states understanding and will have Elias speak to pt tomorrow. Plan: AMANDEEP Beltran [employer], [employer]
--- NOTE | 2017-12-11 18:55 | PCM.PROGNOTE ---
Patient Problems: Active and Suspected Problems (Last Reviewed 11/27/17 @ 09:38 by Carlota Miguel) Pancytopenia (Acute) Subjective: Patient was seen and examined today, no labs were obtained on the patient today, I will order them for tomorrow. Patient has no specific complaints today, temp this morning at 9:01 was 100.6., I talked briefly with infectious diseases as well as oncology about his care, oncology would like the patient's white blood cell count to elevate before he is sent home. - Physical Exam General: Alert, Oriented x3, Cooperative, No apparent distress, Well developed, Well nourished HEENT: Atraumatic, PERRLA, EOMI, Normocephalic Oral: Dry Mucosa Neck: Supple, No JVD, No Nuchal Rigidity, Trachea Midline, Thyroid Normal Size and Texture Lungs: Clear to auscultation, Normal air movement, No rhonchi, No wheeze, No rales Cardiovascular: Regular rate, Regular Rhythm, Normal S1, Normal S2, No murmurs, No Ectopic Activity, No rub noted, No Gallop Abdomen: Bowel Sounds Present, Soft, Non Tender, - - PEG tube present Extremities: No clubbing, No cyanosis, No edema, Capillary Refill Less than 3 Seconds Skin: No rashes, No breakdown Musculoskeletal: No Tenderness to Palpation of Joints or Extremities Neurological: Cranial nerves II-XII grossly intact, Sensory exam intact to light touch and pain, Coordination normal Psych/Mental Status: Normal Affect, Appropriate, Alert and oriented to time, place, person, mood and affect Vital Signs Temp Pulse Resp BP Pulse Ox 99.3 F H 90 18 90/59 L 96 12/11/17 14:52 12/11/17 14:52 12/11/17 14:52 12/11/17 14:52 12/11/17 14:52 Oxygen Delivery Method Room Air Weight: 57.1 kg Body Mass Index (BMI) 19.7 Intake and Output for Last 24 Hours 12/09/17 12/10/17 12/11/17 23:59 23:59 23:59 Intake Total 4042.5 / 4042.5 3493 / 3493 1850 / 1850 Output Total 2600 / 2600 3025 / 3025 1100 / 1100 Balance 1442.5 / 1442.5 468 / 468 750 / 750 Microbiology Past 72 Hours 12/08/17 09:26 Gram Stain - Final Incision/Surgical Site Wound Culture - Final Meth. resistant Staph. aureus Anaerobic Culture - Final No anaerobic bacteria isolated. 12/08/17 09:26 Gram Stain - Final Incision/Surgical Site Wound Culture - Final Meth. resistant Staph. aureus Anaerobic Culture - Final No anaerobic bacteria isolated. Laboratory Tests Past 24 Hrs 12/11/17 05:36 Vancomycin Trough 15.4 H Medical Necessity - Tobacco Use Smoking Status: Former smoker - Quit 3 years ago. Had about a 37.5-pack-year smoking history. Assessment/Plan All Active Problems (Last Reviewed 11/27/17 @ 09:38 by Carlota Miguel) Atrial fibrillation and flutter (Resolved) Cellulitis (Acute) Pancytopenia (Acute) #1 infected left Pleurx catheter site-catheter now removed, MRSA cellulitis-this does not seem to be a systemic infection however, patient will remain on IV vancomycin per ID, CT obtained today shows consolidation in the left lower lung which may however be a result of fluid, atelectasis, cancer, possible pneumonia. Blood cultures so far have been negative #2 pancytopenia-secondary to chemotherapy for non-small cell lung cancer-recheck CBC in a.m., continue Granix #3 non-small cell lung cancer #4 hyponatremia-corrected at this time #5 left hemithorax consolidation and effusion in the inferior half of the left hemithorax-possibly secondary to atelectasis, fluid, pneumonic infiltrate, and lung cancer-no specific treatment at this time other than continuation of present antibiotics, the CT was ordered by infectious diseases. Patient's pulse ox has remained good on room air Code Visit Inpatient E&M: 37302 Subs Hosp L2
--- NOTE | 2017-12-11 19:02 | PN_ITS ---
Patient Problems: Active and Suspected Problems (Last Reviewed 11/27/17 @ 09:38 by Carlota Miguel) Pancytopenia (Acute) Subjective: Patient was seen and examined today, no labs were obtained on the patient today , I will order them for tomorrow. Patient has no specific complaints today, temp this morning at 9:01 was 100.6., I talked briefly with infectious diseases as well as oncology about his care, oncology would like the patient's white blood cell count to elevate before he is sent home. - Physical Exam General: Alert, Oriented x3, Cooperative, No apparent distress, Well developed, Well nourished HEENT: Atraumatic, PERRLA, EOMI, Normocephalic Oral: Dry Mucosa Neck: Supple, No JVD, No Nuchal Rigidity, Trachea Midline, Thyroid Normal Size and Texture Lungs: Clear to auscultation, Normal air movement, No rhonchi, No wheeze, No rales Cardiovascular: Regular rate, Regular Rhythm, Normal S1, Normal S2, No murmurs, No Ectopic Activity, No rub noted, No Gallop Abdomen: Bowel Sounds Present, Soft, Non Tender, - - PEG tube present Extremities: No clubbing, No cyanosis, No edema, Capillary Refill Less than 3 Seconds Skin: No rashes, No breakdown Musculoskeletal: No Tenderness to Palpation of Joints or Extremities Neurological: Cranial nerves II-XII grossly intact, Sensory exam intact to light touch and pain, Coordination normal Psych/Mental Status: Normal Affect, Appropriate, Alert and oriented to time, place, person, mood and affect Vital Signs Temp Pulse Resp BP Pulse Ox 99.3 F H 90 18 90/59 L 96 12/11/17 14:52 12/11/17 14:52 12/11/17 14:52 12/11/17 14:52 12/11/17 14:52 Oxygen Delivery Method Room Air Weight: 57.1 kg Body Mass Index (BMI) 19.7 Intake and Output for Last 24 Hours 12/09/17 12/10/17 12/11/17 23:59 23:59 23:59 Intake Total 4042.5 / 4042.5 3493 / 3493 1850 / 1850 Output Total 2600 / 2600 3025 / 3025 1100 / 1100 Balance 1442.5 / 1442.5 468 / 468 750 / 750 Microbiology Past 72 Hours 12/08/17 09:26 Gram Stain - Final Incision/Surgical Site Wound Culture - Final Meth. resistant Staph. aureus Anaerobic Culture - Final No anaerobic bacteria isolated. 12/08/17 09:26 Gram Stain - Final Incision/Surgical Site Wound Culture - Final Meth. resistant Staph. aureus Anaerobic Culture - Final No anaerobic bacteria isolated. Laboratory Tests Past 24 Hrs 12/11/17 05:36 Vancomycin Trough 15.4 H Medical Necessity - Tobacco Use Smoking Status: Former smoker - Quit 3 years ago. Had about a 37.5-pack-year smoking history. Assessment/Plan All Active Problems (Last Reviewed 11/27/17 @ 09:38 by Carlota Miguel) Atrial fibrillation and flutter (Resolved) Cellulitis (Acute) Pancytopenia (Acute) #1 infected left Pleurx catheter site-catheter now removed, MRSA cellulitis- this does not seem to be a systemic infection however, patient will remain on IV vancomycin per ID, CT obtained today shows consolidation in the left lower lung which may however be a result of fluid, atelectasis, cancer, possible pneumonia. Blood cultures so far have been negative #2 pancytopenia-secondary to chemotherapy for non-small cell lung cancer- recheck CBC in a.m., continue Granix #3 non-small cell lung cancer #4 hyponatremia-corrected at this time #5 left hemithorax consolidation and effusion in the inferior half of the left hemithorax-possibly secondary to atelectasis, fluid, pneumonic infiltrate, and lung cancer-no specific treatment at this time other than continuation of present antibiotics, the CT was ordered by infectious diseases. Patient's pulse ox has remained good on room air Code Visit Inpatient E&M: 39365 Subs Hosp L2
[2017-12-11 21:04] VITALS: BP 115/70; PULSE 90; RESP 18; TEMP 36.5; O2SAT 98
[2017-12-11] MEDS: BMX LIQUID 180 ML 15 ML PO (21:28)
[2017-12-12 03:04] VITALS: BP 96/61; PULSE 85; RESP 18; TEMP 36.6; O2SAT 97
[2017-12-12] MEDS: BMX LIQUID 180 ML 15 ML PO (03:28)
--- NOTE | 2017-12-12 03:44 | NURSING ---
Patient began to discuss with this RN about how he read his MRSA booklet and that he is worried about going back home with his family because he does not want them to get MRSA. Emotional support was provided, social work involved.
[2017-12-12] MEDS: clonazePAM 0.5 MG Tablet GT ×2 (05:34→14:31)
[2017-12-12] MEDS: Levothyroxine 150 MCG Tablet GT (05:34)
[2017-12-12] MEDS: 0.9% NaCl VAD Flush IV (05:34)
[2017-12-12] MEDS: Vancomycin IV 1,000 MG/200 ML BAG 200 MG IV ×2 (05:34→17:43)
[2017-12-12 05:58] LABS: Hematocrit 23.8 % (40-54); Hemoglobin 7.6 g/dl (13.0-16.5); Mean Corp Hgb Conc 31.9 g/gl (32-36); Mean Corpuscular Hgb 28.3 pg (27.0-32.0); Mean Corpuscular Volume 88.5 fL (80-94); Mean Platelet Vol. 10.2 fl (6.2-12.0); Platelet Count 85 K/mm3 (150-450); RBC Distribution Width CV 17.9 % (11.6-14.6); RBC Distribution Width SD 52.2 fl (35.1-43.9); Red Blood Count 2.69 M/mm3 (4.6-6.2)
[2017-12-12 06:07] LABS: Anion Gap 8 (5-15); BUN 22 mg/dL (7-18); BUN/Creat Ratio 29.6 RATIO (10-20); Chloride 95 mmol/L (98-107); Creatinine, Serum 0.74 mg/dL (0.70-1.30); EST Glomerular Filtration Rate 113 mL/min (>60); Est Glom Filt Rate - Afr Amer 137 mL/min (>60); Estimated Creatinine Clearance 83.59 ml/min; Glucose 76 mg/dL (74-106); Potassium 3.8 mmol/L (3.5-5.1); Sodium Level 136 mmol/L (136-145)
[2017-12-12 06:12] LABS: POSITIVE COUNT NO; POSITIVE DIFFERENTIAL YES; POSITIVE MORPHOLOGY YES
[2017-12-12 06:27] LABS: Differential Indicated MANUAL DIFF
[2017-12-12 06:30] LABS: Lymphocyte 8 % (19-41); Metamyelocyte 8 % (0-1); Monocyte 14 % (0-10); Neutrophil-Band 16 % (0-5); Neutrophil-Segmented 54 % (47-70); Nucleated Red Bld Cells,Manual 2 % (0-5); Red Cell Morphology NORM C+C NORMAL (NORM C&C); Total Cells Counted 50 (MANUAL DIFF)
[2017-12-12 06:31] LABS: Absolute Lymphocyte Count 0.15 X10^3/ul (0.83-4.51); Absolute Neutrophil Count 1.4 X10^3/uL (2.0-7.7); Lymphocyte # 0.15 X10^3/ul (4.0); Neutrophil # 1.39 X10^3/uL (2.7-7.7); Platelet Estimate SLT DEC (ADEQ); Toxic Granulation 2+
[2017-12-12] MEDS: BENZOCAINE/MENTHOL 1 LOZENGE MUCOUS MEM ×2 (07:33→14:35)
[2017-12-12] MEDS: Omeprazole 20 MG Capsule 40 MG GT (08:33)
[2017-12-12 08:40] VITALS: BP 113/68; PULSE 97; RESP 18; TEMP 37.2; O2SAT 93
[2017-12-12 08:50] VITALS: PULSE 92
[2017-12-12 09:37] LABS: Pathologist Review Reviewed
--- NOTE | 2017-12-12 11:26 | PCM.PN.SRG ---
Patient Problems: Active and Suspected Problems (Last Reviewed 11/27/17 @ 09:38 by Carlota Miguel) Pancytopenia (Acute) Subjective: minimal pain - Physical Exam General: Alert, Oriented x3 Lungs: Clear to auscultation, Diminished - left base Vital Signs Temp Pulse Resp BP Pulse Ox 99.0 F 92 18 113/68 93 12/12/17 08:40 12/12/17 08:50 12/12/17 08:40 12/12/17 08:40 12/12/17 08:40 Oxygen Delivery Method Room Air Weight: 57.1 kg Body Mass Index (BMI) 19.7 Intake and Output for Last 24 Hours 12/10/17 12/11/17 12/12/17 23:59 23:59 23:59 Intake Total 3493 / 3493 1850 / 1850 1522 / 1522 Output Total 3025 / 3025 1100 / 1100 650 / 650 Balance 468 / 468 750 / 750 872 / 872 Microbiology Past 72 Hours 12/08/17 09:26 Gram Stain - Final Incision/Surgical Site Wound Culture - Final Meth. resistant Staph. aureus Anaerobic Culture - Final No anaerobic bacteria isolated. 12/08/17 09:26 Gram Stain - Final Incision/Surgical Site Wound Culture - Final Meth. resistant Staph. aureus Anaerobic Culture - Final No anaerobic bacteria isolated. Laboratory Tests Past 24 Hrs 12/12/17 12/12/17 05:20 05:20 WBC 2.0 L RBC 2.69 L Hgb 7.6 L Hct 23.8 L MCV 88.5 MCH 28.3 MCHC 31.9 L RDW 17.9 H RDW Differential 52.2 H Plt Count 85 L MPV 10.2 Immature Gran % (Auto) [employer] Neut % (Auto) [employer] Lymph % (Auto) [employer] [place] % (Auto) [employer] Eos % (Auto) [employer] Baso % (Auto) [employer] Absolute Neuts (auto) 1.4 L Absolute Lymphs (auto) 0.15 L Total Counted 50 Neutrophils % (Manual) 54 Band Neutrophils % 16 H Lymphocytes % (Manual) 8 L Monocytes % (Manual) 14 H Metamyelocytes % 8 H Nucleated RBCs/100 WBC [address] Review Reviewed Toxic Granulation 2+ Platelet Estimate SLT DEC RBC Morphology NORM C+C Sodium 136 Potassium 3.8 Chloride 95 L Carbon Dioxide 33.0 H Anion Gap 8 BUN 22 H Creatinine 0.74 Estim Creat Clear Calc 83.59 Est GFR (MDRD) Af Amer 137 Est GFR (MDRD) Non-Af 113 BUN/Creatinine Ratio 29.6 H Glucose 76 Calcium 9.0 Medical Necessity - Tobacco Use Smoking Status: Former smoker - Quit 3 years ago. Had about a 37.5-pack-year smoking history. Assessment/Plan All Active Problems (Last Reviewed 11/27/17 @ 09:38 by Carlota Miguel) Atrial fibrillation and flutter (Resolved) Cellulitis (Acute) Pancytopenia (Acute) cellulitis at chest insertion site, neutropenia, lung cancer. - Status post removal of tunneled catheter. The patient was admitted and started on IV antibiotics. The tract has no drainage and erythema is improved The site overall looks better today and the patient notes decreased pain. Culture MRSA - on appropriate Abx.
[2017-12-12] MEDS: TBO-FILGRASTIM 300 MCG/0.5 ML ML SC (11:57)
--- NOTE | 2017-12-12 12:21 | ONC.PN.INPT ---
- Problem List (1) Pancytopenia Status: Acute (2) Non-small cell carcinoma of left lung, stage 3 Status: Chronic (3) Pleural effusion Status: Chronic Subjective Date of Service:: 12/12/17 infected chest tube Mr. Tomy Munson is a 62 y.o.man with stage IIIb non-small cell lung cancer recently diagnosed when a CT scan of chest on 09/16/2017 showed increasing Left lower lobe mass and new Left hilar mass. EBUS + biopsy, on 09/26/2017 and showed squamous cell cancer. MRI brain done on 10/14/2017 was negative for brain metastases. PET/CT on 10/16/2017 shows new hypermetabolic activity in left hemithorax with activity in precarinal area mediastinum, left perihilar area and pleural effusion. Thoracentesis showed no malignant cells. Pleurx cath was placed. He was staged as NSCLC stage IIIB. He started chemotherapy with weekly carboplatin and Taxol on 11/20/2017 with concomitant radiation therapy on 11/24/[address] Leigh and Sara. His last chemo was December 04, 2017. He was hospitalized on December 07 with increasing chest pain at the site of the Pleurx catheter associated with swelling and erythema. He was found to be profoundly pancytopenic with an absolute neutrophil count of 400. He was started on intravenous antibiotics, the Pleurx cath was removed December 08. I feel much better no dyspnea no cough no chest pain no nausea or vomiting no diarrhea no dysuria no skin rash Past Medical History: Chronic Problems (Last Reviewed 11/27/17 @ 09:38 by Carlota Miguel) PEG (percutaneous endoscopic gastrostomy) status (Chronic) Tobacco dependence in remission (Chronic) Pulmonary nodule, left (Chronic) History of laryngeal cancer (Chronic) Non-small cell carcinoma of left lung, stage 3 (Chronic) Dysphagia (Chronic) Chronic anemia (Chronic) Pleural effusion (Chronic) Chemotherapy management, encounter for (Chronic) Past Medical History - Most Recent Inpatient Visit Past Medical History Start: 12/07/17 17:32 Text: Status: Complete Freq: ONCE Protocol: Document 12/07/17 17:32 TDW (Rec: 12/07/17 17:41 TDW [id number]) BMI Required to complete PMH What is Patient's BMI 19.7 Past Medical History Unable History Recalled No Query Text:Pt Unable/Family Not Present Neurologic Medical History Hx Stroke/TIA No Hx Dementia/Alzheimer's No Hx Parkinson's Disease No Hx Seizures No Hx Multiple Sclerosis No Hx Migraines No Cardiac Medical History VTE Present on Admission No Hx of Deep Vein Thrombosis/VTE/PE No Hx Hypertension No Hx Chest Pain/Angina Yes: from chest tube Hx Heart Attack No Hx Cardiac Surgery/Stents/Etc. No Hx Heart Failure No Hx Pacemaker/AICD No Hx Irregular Heartbeat and/or Afib Yes Hx Anticoagulant Therapy No Query Text:(Coumadin, Aspirin, Plavix, Xarelto, etc.) Hx Pain in Legs when Walking/Leg Cramps No Respiratory Medical History Hx COPD No Hx Emphysema No Hx Smoking Yes: SMOKED 25 YRS /PPD/QUIT SMOKING 2.5 YRS AGO Smoking Status Former smoker Hx Smoking Cessation Counseling Yes Hx Smoking Exposure Yes Hx Tobacco Use in last 12 months No Hx of Pipe Smoking No Hx Sleep Apnea No: . CPAP No BIPAP No Do you snore loudly (louder than talking No or can be heard through closed doors)? Do you often feel tired/ fatigued/ No sleepy during daytime? Has anyone observed you stop breathing No during sleep? STOP Results Negative GI Medical History Hx Ulcer No Hx Hepatitis No Hx Cirrhosis No Hx GI Bleed No: ESOPHAGUS STRETCHED Hx Unplanned Weight Loss Yes Genitourinary Medical History Indwelling Catheter in Place on Arrival/ No Admission Hx Renal Disease No Hx Dialysis No Musculoskeletal History Hx Arthritis Yes Hx Rheumatoid Arthritis No Endocrine Medical History Hx Diabetes No Hx Thyroid Disease Yes: ON MED Hematologic Medical History Hx of Blood Transfusion Yes Hx of Transfusion in last 3 Months No Ever experience any problems with No transfusion(s)? Hx of Preganancy in last 3 Months N/A Nurse Filling Out Transfusion & TWOLF Questions: Date: 12/07/17 Time: 17:39 Psycho/Social Medical History Hx Depression No Hx Anxiety No Hx Behavior Disorder No Hx Alcohol Use Yes: 12 BEERS /DAY QUIT 2 YRS AGO Hx Substance Use No Other Medical History Hx Blood Disorders No Hx Anemia Yes Hx Cancer Yes: throat/neck cancer/ RADIATION [place] Hx Drug Resistant Organism No Wound/Pressure Injury Present on Arrival Yes /Admission Query Text:If yes, chart assessment in Shift/Clinical Findings Central Line/PICC/VAD Present on Arrival Yes /Admission Antibiotics within last 7 days? No Risk for Readmission Number of Risk Factors 7 At Risk for Readmission Patient is At Risk For Readmission Patient is eligible for Call Back Y Past Medical History (Last Reviewed 11/27/17 @ 09:38 by Carlota Miguel) Anemia (Acute) Chicken pox (Acute) Dysphagia (Acute) Hypernatremia (Acute) Hyponatremia (Acute) Hypothyroidism (Acute) LEFT WRIST SURGERY (Acute) Laryngeal cancer (Acute) Lymphadenitis (Acute) Measles (Acute) Mumps (Acute) Status post insertion of percutaneous endoscopic gastrostomy (PEG) tube (Acute) Past Surgical History (Last Reviewed 11/27/17 @ 09:38 by Carlota Miguel) History of hernia repair (Acute) History of thoracentesis (Acute) Paternal Family History: Family History (Last Reviewed 11/27/17 @ 09:38 by Carlota Miguel) Father Heart disease Family History: Heart Disease - Maternal Family History: Family History (Last Reviewed 11/27/17 @ 09:38 by Carlota Miguel) Father Heart disease Family History: No pertinent history - Social History Lives: With Family Smoking Status: Former smoker - Quit 3 years ago. Had about a 37.5-pack-year smoking history. Alcohol: None - Quit 3 years ago Review of Systems Constitutional:: Reports: Weakness, Fatigue. Denies: Fever, Sweats, Weight loss, Appetite change, Chills Cardiovascular:: Reports: Dyspnea on exertion - At baseline. Denies: Chest pain, Palpitations, Orthopnea, PND, Shortness of breath Respiratory: Reports: Shortness of breath upon exertion. Denies: Cough, Hemoptysis, Shortness of Breath, Wheezing Gastrointestinal:: Denies: Abdominal pain, Nausea, Vomiting, Diarrhea, Constipation, Hematochezia Genitourinary: Denies: Dysuria, Hematuria, 15, Flank pain Musculoskeletal:: Denies: Back pain, Myalgia, Arthralgia Skin: Denies: Rash, Skin Changes, Wounds Neurological:: Denies: Headache, Dizziness, Visual changes, Tinnitus, Hearing loss Psychiatric: Denies: Anxiety, Depression, Homicidal Ideations, Suicidal Ideations Vital Signs Height 5 ft 7 in Weight: 57.1 kg Weight in Pounds 125.9 lbs Pulse Ox 93 Temperature 99.0 F Pulse Rate 92 Respiratory Rate 18 Blood Pressure 113/68 Blood Pressure Position Sitting - Physical Exam General: Alert, Oriented x3, No apparent distress Neurological: Neuro grossly intact Psychiatric:: Appropriate affect, Euthymic Laboratory Data: Microbiology 12/08/17 09:26 Gram Stain - Final Incision/Surgical Site Wound Culture - Final Meth. resistant Staph. aureus Anaerobic Culture - Final No anaerobic bacteria isolated. 12/08/17 09:26 Gram Stain - Final Incision/Surgical Site Wound Culture - Final Meth. resistant Staph. aureus Anaerobic Culture - Final No anaerobic bacteria isolated. Laboratory Tests 12/12/17 12/12/17 Range/Units 05:20 05:20 WBC 2.0 L (4.4-11.0) K/mm3 RBC 2.69 L (4.6-6.2) M/mm3 Hgb 7.6 L (13.0-16.5) g/dl Hct 23.8 L (40-54) % MCV 88.5 (80-94) fL MCH 28.3 (27.0-32.0) pg MCHC 31.9 L (32-36) g/gl RDW 17.9 H (11.6-14.6) % RDW Differential 52.2 H (35.1-43.9) fl Plt Count 85 L (150-450) K/mm3 MPV 10.2 (6.2-12.0) fl Immature Gran % (Auto) [employer] Neut % (Auto) [employer] Lymph % (Auto) [employer] [place] % (Auto) [employer] Eos % (Auto) [employer] Baso % (Auto) [employer] Absolute Neuts (auto) 1.4 L (2.0-7.7) X10^3/uL Absolute Lymphs (auto) 0.15 L (0.83-4.51) X10^3/ul Total Counted 50 (MANUAL DIFF) Neutrophils % (Manual) 54 (47-70) % Band Neutrophils % 16 H (0-5) % Lymphocytes % (Manual) 8 L (19-41) % Monocytes % (Manual) 14 H (0-10) % Metamyelocytes % 8 H (0-1) % Nucleated RBCs/100 WBC 2 (0-5) % Diff Path Review Reviewed Toxic Granulation 2+ Platelet Estimate SLT DEC (ADEQ) RBC Morphology NORM C+C (NORM C&C) NORMAL Sodium 136 (136-145) mmol/L Potassium 3.8 (3.5-5.1) mmol/L Chloride 95 L (98-107) mmol/L Carbon Dioxide 33.0 H (21.0-32.0) mmol/L Anion Gap 8 (5-15) BUN 22 H (7-18) mg/dL Creatinine 0.74 (0.70-1.30) mg/dL Estim Creat Clear Calc 83.59 ml/min Est GFR (MDRD) Af Amer 137 (>60) mL/min Est GFR (MDRD) Non-Af 113 (>60) mL/min BUN/Creatinine Ratio 29.6 H (10-20) RATIO Glucose 76 (74-106) mg/dL Calcium 9.0 (8.5-10.1) mg/dL Laboratory Tests 11/27/17 12/04/17 12/07/17 09:20 08:25 16:05 Hgb Plt Count Absolute Neuts (auto) 9.1 H 1.4 L 0.4 L 12/09/17 12/10/17 12/12/17 05:50 06:20 05:20 Hgb 7.6 L Plt Count 85 L Absolute Neuts (auto) 0.3 L 0.1 L 1.4 L Diagnostic Data: Diagnostic Data Chest X-Ray 12/07/17 15:07 IMPRESSION: Significantly decrease in size of the previous large left pleural effusion. Presently, there is a moderate amount of pleural fluid on the left side. Left chest tube in place. There is no pneumothorax. Right lung is clear. Electronically Signed: Jn Dubon MD at 16:00 EDT , Service support , ADDENDUM: 12/07/17 1607 IMPRESSION: Significantly decrease in size of the previous large left pleural effusion. Presently, there is a moderate amount of pleural fluid on the left side. Left chest tube in place. There is no pneumothorax. Right lung is clear. Electronically Signed: Jn Dubon MD at 16:00 EDT , Service support , Chest CT 12/11/17 10:48 IMPRESSION: There is a combination of consolidation and effusion in the inferior half of the left hemithorax. This represents a significant improvement when compared to the previous study but follow-up is recommended to assure complete resolution. Right lung is clear and well expanded No suspicious axillary or mediastinal adenopathy Degenerative bony changes Electronically Signed: Nathaniel Miramontes MD at 13:36 EDT , Service support , Assessment and Plan 62-year-old male with: 1. Non-small cell lung cancer, clinical stage IIIB on combined modality chemoradiation. As he recovers from his wound infection and bone marrow toxicity from chemotherapy he is expected to be able to resume therapy at the beginning of next week. From the hematology oncology view and he would be ready for discharge tomorrow December 13 and to follow-up in the outpatient to resume treatment December 15. 2. Pancytopenia severe due to recent chemotherapy and radiation on top of anemia of chronic disease. Chemo and radiation where held this week to allow for bone marrow recovery. A)Transfused with packed red blood cells to a target hemoglobin above 7-8 g per DL depending on symptomatology. B) Will discontinue growth factor support with Granix (5 mg/kg body weight subcu daily) after December 13 a.m. dose (unless the absolute neutrophil count is equal to or above 10,000 then it can be stopped before tomorrow's dose) C) Prophylactic platelet transfusion if less than 10 K or active bleeding. 3. Broad-spectrum antibiotic cover as per primary service and ID recommendations. 4. Continue tube feeds. 5. Venous thromboembolism prophylaxis, okay to use pharmacologic agent as long as platelet count above 50,000. Patient encouraged to ambulate. Thank you for involving me in his care, will follow-up with Dr. Leigh and Sara after discharge Medications: Prescriptions This Visit Medication Instructions Recorded Clonazepam [Klonopin] 0.5 mg PO TID 12/07/17 Medications Added to Medication List This Visit Category Date Time Status Benzocaine/Menthol [Cepacol Sore Throat Lozenge] Med 12/12/17 06:04 Active 1 lozenge MUCOUS MEM Q2H PRN PRN Primary Care Provider: NORM MonteroC Referring Provider:
--- NOTE | 2017-12-12 12:28 | PN_ITS ---
- Problem List (1) Pancytopenia Status: Acute (2) Non-small cell carcinoma of left lung, stage 3 Status: Chronic (3) Pleural effusion Status: Chronic Subjective Date of Service:: 12/12/17 infected chest tube Mr. Tomy Munson is a 62 y.o.man with stage IIIb non-small cell lung cancer recently diagnosed when a CT scan of chest on 09/16/2017 showed increasing Left lower lobe mass and new Left hilar mass. EBUS + biopsy, on 09/26/2017 and showed squamous cell cancer. MRI brain done on 10/14/2017 was negative for brain metastases. PET/CT on 10/16/2017 shows new hypermetabolic activity in left hemithorax with activity in precarinal area mediastinum, left perihilar area and pleural effusion. Thoracentesis showed no malignant cells. Pleurx cath was placed. He was staged as NSCLC stage IIIB. He started chemotherapy with weekly carboplatin and Taxol on 11/20/2017 with concomitant radiation therapy on 11/24/[address] Leigh and Sara. His last chemo was December 04, 2017. He was hospitalized on December 07 with increasing chest pain at the site of the Pleurx catheter associated with swelling and erythema. He was found to be profoundly pancytopenic with an absolute neutrophil count of 400. He was started on intravenous antibiotics, the Pleurx cath was removed December 08. I feel much better no dyspnea no cough no chest pain no nausea or vomiting no diarrhea no dysuria no skin rash Past Medical History: Chronic Problems (Last Reviewed 11/27/17 @ 09:38 by Carlota Miguel) PEG (percutaneous endoscopic gastrostomy) status (Chronic) Tobacco dependence in remission (Chronic) Pulmonary nodule, left (Chronic) History of laryngeal cancer (Chronic) Non-small cell carcinoma of left lung, stage 3 (Chronic) Dysphagia (Chronic) Chronic anemia (Chronic) Pleural effusion (Chronic) Chemotherapy management, encounter for (Chronic) Past Medical History - Most Recent Inpatient Visit Past Medical History Start: 12/07/17 17: 32 Text: Status: Complete Freq: ONCE Protocol: Document 12/07/17 17:32 TDW (Rec: 12/07/17 17:41 TDW [id number]) BMI Required to complete PMH What is Patient's BMI 19.7 Past Medical History Unable History Recalled No Query Text:Pt Unable/Family Not Present Neurologic Medical History Hx Stroke/TIA No Hx Dementia/Alzheimer's No Hx Parkinson's Disease No Hx Seizures No Hx Multiple Sclerosis No Hx Migraines No Cardiac Medical History VTE Present on Admission No Hx of Deep Vein Thrombosis/VTE/PE No Hx Hypertension No Hx Chest Pain/Angina Yes: from chest tube Hx Heart Attack No Hx Cardiac Surgery/Stents/Etc. No Hx Heart Failure No Hx Pacemaker/AICD No Hx Irregular Heartbeat and/or Afib Yes Hx Anticoagulant Therapy No Query Text:(Coumadin, Aspirin, Plavix, Xarelto, etc.) Hx Pain in Legs when Walking/Leg Cramps No Respiratory Medical History Hx COPD No Hx Emphysema No Hx Smoking Yes: SMOKED 25 YRS /PPD/QUIT SMOKING 2.5 YRS AGO Smoking Status Former smoker Hx Smoking Cessation Counseling Yes Hx Smoking Exposure Yes Hx Tobacco Use in last 12 months No Hx of Pipe Smoking No Hx Sleep Apnea No: . CPAP No BIPAP No Do you snore loudly (louder than talking No or can be heard through closed doors)? Do you often feel tired/ fatigued/ No sleepy during daytime? Has anyone observed you stop breathing No during sleep? STOP Results Negative GI Medical History Hx Ulcer No Hx Hepatitis No Hx Cirrhosis No Hx GI Bleed No: ESOPHAGUS STRETCHED Hx Unplanned Weight Loss Yes Genitourinary Medical History Indwelling Catheter in Place on Arrival/ No Admission Hx Renal Disease No Hx Dialysis No Musculoskeletal History Hx Arthritis Yes Hx Rheumatoid Arthritis No Endocrine Medical History Hx Diabetes No Hx Thyroid Disease Yes: ON MED Hematologic Medical History Hx of Blood Transfusion Yes Hx of Transfusion in last 3 Months No Ever experience any problems with No transfusion(s)? Hx of Preganancy in last 3 Months N/A Nurse Filling Out Transfusion & TWOLF Questions: Date: 12/07/17 Time: 17:39 Psycho/Social Medical History Hx Depression No Hx Anxiety No Hx Behavior Disorder No Hx Alcohol Use Yes: 12 BEERS /DAY QUIT 2 YRS AGO Hx Substance Use No Other Medical History Hx Blood Disorders No Hx Anemia Yes Hx Cancer Yes: throat/neck cancer/ RADIATION [place] Hx Drug Resistant Organism No Wound/Pressure Injury Present on Arrival Yes /Admission Query Text:If yes, chart assessment in Shift/Clinical Findings Central Line/PICC/VAD Present on Arrival Yes /Admission Antibiotics within last 7 days? No Risk for Readmission Number of Risk Factors 7 At Risk for Readmission Patient is At Risk For Readmission Patient is eligible for Call Back Y Past Medical History (Last Reviewed 11/27/17 @ 09:38 by Carlota Miguel) Anemia (Acute) Chicken pox (Acute) Dysphagia (Acute) Hypernatremia (Acute) Hyponatremia (Acute) Hypothyroidism (Acute) LEFT WRIST SURGERY (Acute) Laryngeal cancer (Acute) Lymphadenitis (Acute) Measles (Acute) Mumps (Acute) Status post insertion of percutaneous endoscopic gastrostomy (PEG) tube (Acute) Past Surgical History (Last Reviewed 11/27/17 @ 09:38 by Carlota Miguel) History of hernia repair (Acute) History of thoracentesis (Acute) Paternal Family History: Family History (Last Reviewed 11/27/17 @ 09:38 by Carlota Miguel) Father Heart disease Family History: Heart Disease - Maternal Family History: Family History (Last Reviewed 11/27/17 @ 09:38 by Carlota Miguel) Father Heart disease Family History: No pertinent history - Social History Lives: With Family Smoking Status: Former smoker - Quit 3 years ago. Had about a 37.5-pack-year smoking history. Alcohol: None - Quit 3 years ago Review of Systems Constitutional:: Reports: Weakness, Fatigue. Denies: Fever, Sweats, Weight loss , Appetite change, Chills Cardiovascular:: Reports: Dyspnea on exertion - At baseline. Denies: Chest pain , Palpitations, Orthopnea, PND, Shortness of breath Respiratory: Reports: Shortness of breath upon exertion. Denies: Cough, Hemoptysis, Shortness of Breath, Wheezing Gastrointestinal:: Denies: Abdominal pain, Nausea, Vomiting, Diarrhea, Constipation, Hematochezia Genitourinary: Denies: Dysuria, Hematuria, 15, Flank pain Musculoskeletal:: Denies: Back pain, Myalgia, Arthralgia Skin: Denies: Rash, Skin Changes, Wounds Neurological:: Denies: Headache, Dizziness, Visual changes, Tinnitus, Hearing loss Psychiatric: Denies: Anxiety, Depression, Homicidal Ideations, Suicidal Ideations Vital Signs Height 5 ft 7 in Weight: 57.1 kg Weight in Pounds 125.9 lbs Pulse Ox 93 Temperature 99.0 F Pulse Rate 92 Respiratory Rate 18 Blood Pressure 113/68 Blood Pressure Position Sitting - Physical Exam General: Alert, Oriented x3, No apparent distress Neurological: Neuro grossly intact Psychiatric:: Appropriate affect, Euthymic Laboratory Data: Microbiology 12/08/17 09:26 Gram Stain - Final Incision/Surgical Site Wound Culture - Final Meth. resistant Staph. aureus Anaerobic Culture - Final No anaerobic bacteria isolated. 12/08/17 09:26 Gram Stain - Final Incision/Surgical Site Wound Culture - Final Meth. resistant Staph. aureus Anaerobic Culture - Final No anaerobic bacteria isolated. Laboratory Tests 3 12/12/17 12/12/17 Range/Units 05:20 05:20 WBC 2.0 L (4.4-11.0) K/mm3 RBC 2.69 L (4.6-6.2) M/mm3 Hgb 7.6 L (13.0-16.5) g/dl Hct 23.8 L (40-54) % MCV 88.5 (80-94) fL MCH 28.3 (27.0-32.0) pg MCHC 31.9 L (32-36) g/gl RDW 17.9 H (11.6-14.6) % RDW Differential 52.2 H (35.1-43.9) fl Plt Count 85 L (150-450) K/mm3 MPV 10.2 (6.2-12.0) fl Immature Gran % (Auto) ASSEMBLY LINE LEADER Neut % (Auto) ASSEMBLY LINE LEADER Lymph % (Auto) ASSEMBLY LINE LEADER [place] % (Auto) ASSEMBLY LINE LEADER Eos % (Auto) ASSEMBLY LINE LEADER Baso % (Auto) ASSEMBLY LINE LEADER Absolute Neuts (auto) 1.4 L (2.0-7.7) X10^3/uL Absolute Lymphs (auto) 0.15 L (0.83-4.51) X10^3/ul Total Counted 50 (MANUAL DIFF) Neutrophils % (Manual) 54 (47-70) % Band Neutrophils % 16 H (0-5) % Lymphocytes % (Manual) 8 L (19-41) % Monocytes % (Manual) 14 H (0-10) % Metamyelocytes % 8 H (0-1) % Nucleated RBCs/100 WBC 2 (0-5) % Diff Path Review Reviewed Toxic Granulation 2+ Platelet Estimate SLT DEC (ADEQ) RBC Morphology NORM C+C (NORM C&C) NORMAL Sodium 136 (136-145) mmol/L Potassium 3.8 (3.5-5.1) mmol/L Chloride 95 L (98-107) mmol/L Carbon Dioxide 33.0 H (21.0-32.0) mmol/L Anion Gap 8 (5-15) BUN 22 H (7-18) mg/dL Creatinine 0.74 (0.70-1.30) mg/dL Estim Creat Clear Calc 83.59 ml/min Est GFR (MDRD) Af Amer 137 (>60) mL/min Est GFR (MDRD) Non-Af 113 (>60) mL/min BUN/Creatinine Ratio 29.6 H (10-20) RATIO Glucose 76 (74-106) mg/dL Calcium 9.0 (8.5-10.1) mg/dL Laboratory Tests 11/27/17 12/04/17 12/07/17 09:20 08:25 16:05 Hgb Plt Count Absolute Neuts (auto) 9.1 H 1.4 L 0.4 L 12/09/17 12/10/17 12/12/17 05:50 06:20 05:20 Hgb 7.6 L Plt Count 85 L Absolute Neuts (auto) 0.3 L 0.1 L 1.4 L Diagnostic Data: Diagnostic Data Chest X-Ray 12/07/17 15:07 IMPRESSION: Significantly decrease in size of the previous large left pleural effusion. Presently, there is a moderate amount of pleural fluid on the left side. Left chest tube in place. There is no pneumothorax. Right lung is clear. Electronically Signed: Jn Dubon MD at 16:00 EDT , Service support , ADDENDUM: 12/07/17 1607 IMPRESSION: Significantly decrease in size of the previous large left pleural effusion. Presently, there is a moderate amount of pleural fluid on the left side. Left chest tube in place. There is no pneumothorax. Right lung is clear. Electronically Signed: Jn Dubon MD at 16:00 EDT , Service support , Chest CT 12/11/17 10:48 IMPRESSION: There is a combination of consolidation and effusion in the inferior half of the left hemithorax. This represents a significant improvement when compared to the previous study but follow-up is recommended to assure complete resolution. Right lung is clear and well expanded No suspicious axillary or mediastinal adenopathy Degenerative bony changes Electronically Signed: Nathaniel Miramontes MD at 13:36 EDT , Service support , Assessment and Plan 62-year-old male with: 1. Non-small cell lung cancer, clinical stage IIIB on combined modality chemoradiation. As he recovers from his wound infection and bone marrow toxicity from chemotherapy he is expected to be able to resume therapy at the beginning of next week. From the hematology oncology view and he would be ready for discharge tomorrow December 13 and to follow-up in the outpatient to resume treatment December 15. 2. Pancytopenia severe due to recent chemotherapy and radiation on top of anemia of chronic disease. Chemo and radiation where held this week to allow for bone marrow recovery. A)Transfused with packed red blood cells to a target hemoglobin above 7-8 g per DL depending on symptomatology. B) Will discontinue growth factor support with Granix (5 mg/kg body weight subcu daily) after December 13 a.m. dose (unless the absolute neutrophil count is equal to or above 10,000 then it can be stopped before tomorrow's dose) C) Prophylactic platelet transfusion if less than 10 K or active bleeding. 3. Broad-spectrum antibiotic cover as per primary service and ID recommendations. 4. Continue tube feeds. 5. Venous thromboembolism prophylaxis, okay to use pharmacologic agent as long as platelet count above 50,000. Patient encouraged to ambulate. Thank you for involving me in his care, will follow-up with Dr. Leigh and Sara after discharge Medications: Prescriptions This Visit Medication Instructions Recorded Clonazepam [Klonopin] 0.5 mg PO TID 12/07/17 Medications Added to Medication List This Visit Category Date Time Status Benzocaine/Menthol [Cepacol Sore Throat Lozenge] Med 12/12/17 06:04 Active 1 lozenge MUCOUS MEM Q2H PRN PRN Primary Care Provider: NORM MonteroC Referring Provider:
[2017-12-12 14:27] VITALS: BP 102/71; PULSE 87; RESP 18; TEMP 37.1; O2SAT 96
--- NOTE | 2017-12-12 14:31 | CASEMGMT ---
Social Work Note Pt's son's requesting to speak with this worker. SW met with pt's son. Pt's son Elias asked this worker what are the options are pt as he is still contagious and in precautions. SW informed Elias that this worker is waiting for the ID doctor to determine if pt will be discharged on IV antibiotics or PO antibiotics and once the ID doctor decides this, this worker can confirm discharge plans. SW explained that if pt discharges on IV antibiotics then this worker can most likely get medical transcription services at a SNF. JAZLYN explained that if pt discharges on PO then there is nothing to skill pt as pt is doing well with PT/OT and doesn't require skilled services and that SNF would be private pay. Pt son's states understanding. Elias provided number [phone] and wants this worker to call him once ID doctor determines antibiotics. SW waiting for ID to determine antibiotics. Plan: Home vs. SNF Adriana Beltran REVIEW ANALYST, ROLL EDGE MACHINE OPERATOR
--- NOTE | 2017-12-12 15:14 | CASEMGMT ---
Social Work Note Dr. Hong states that pt will be discharged on PO antibiotics. SW in to update pt of this. He states that he is happy to be able to go home and confirms that he wishes to discharge home. Pt denied Palliative Care referral. SW encouraged pt to take Palliative Care brochure home and if he decides to make a referral he or his son's can call [facility]. Pt states understanding. Pt denies additional needs or concerns at this time. SW placed a call to pt's son Elias and updated him that pt will be discharged on PO antibiotics. Elias states understanding. Plan: Pt to discharge home when medically cleared Adriana Beltran TUCKPOINTER, AUTOMOBILE TIRE BUILDER
--- NOTE | 2017-12-12 16:05 | PN.ID_ITS ---
Patient Problems: Active and Suspected Problems (Last Reviewed 11/27/17 @ 09:38 by Carlota Miguel) Pancytopenia (Acute) Subjective: Feeling much better, no fever, no n/v/d. Minimal cough. - Physical Exam General: Alert, Cooperative, No apparent distress Lungs: Clear to auscultation, Normal air movement Cardiovascular: Regular rate, Regular Rhythm Abdomen: Soft, Non Tender, Non-Distended Skin: No rashes Vital Signs Temp Pulse Resp BP Pulse Ox 98.8 F 87 18 102/71 96 12/12/17 14:27 12/12/17 14:27 12/12/17 14:27 12/12/17 14:27 12/12/17 14:27 Oxygen Delivery Method Room Air Weight: 57.1 kg Body Mass Index (BMI) 19.7 Intake and Output for Last 24 Hours 12/10/17 12/11/17 12/12/17 23:59 23:59 23:59 Intake Total 3493 / 3493 1850 / 1850 2599 / 2599 Output Total 3025 / 3025 1100 / 1100 1150 / 1150 Balance 468 / 468 750 / 750 1449 / 1449 Microbiology Past 72 Hours 12/08/17 09:26 Gram Stain - Final Incision/Surgical Site Wound Culture - Final Meth. resistant Staph. aureus Anaerobic Culture - Final No anaerobic bacteria isolated. 12/08/17 09:26 Gram Stain - Final Incision/Surgical Site Wound Culture - Final Meth. resistant Staph. aureus Anaerobic Culture - Final No anaerobic bacteria isolated. Laboratory Tests Past 24 Hrs 12/12/17 12/12/17 05:20 05:20 WBC 2.0 L RBC 2.69 L Hgb 7.6 L Hct 23.8 L MCV 88.5 MCH 28.3 MCHC 31.9 L RDW 17.9 H RDW Differential 52.2 H Plt Count 85 L MPV 10.2 Immature Gran % (Auto) HYDROGEN POWER PLANT ENGINEER Neut % (Auto) HYDROGEN POWER PLANT ENGINEER Lymph % (Auto) HYDROGEN POWER PLANT ENGINEER [place] % (Auto) HYDROGEN POWER PLANT ENGINEER Eos % (Auto) HYDROGEN POWER PLANT ENGINEER Baso % (Auto) HYDROGEN POWER PLANT ENGINEER Absolute Neuts (auto) 1.4 L Absolute Lymphs (auto) 0.15 L Total Counted 50 Neutrophils % (Manual) 54 Band Neutrophils % 16 H Lymphocytes % (Manual) 8 L Monocytes % (Manual) 14 H Metamyelocytes % 8 H Nucleated RBCs/100 WBC 2 [address] Review Reviewed Toxic Granulation 2+ Platelet Estimate SLT DEC RBC Morphology NORM C+C Sodium 136 Potassium 3.8 Chloride 95 L Carbon Dioxide 33.0 H Anion Gap 8 BUN 22 H Creatinine 0.74 Estim Creat Clear Calc 83.59 Est GFR (MDRD) Af Amer 137 Est GFR (MDRD) Non-Af 113 BUN/Creatinine Ratio 29.6 H Glucose 76 Calcium 9.0 Medical Necessity - Tobacco Use Smoking Status: Former smoker - Quit 3 years ago. Had about a 37.5-pack-year smoking history. Route of nutrition/ use of supplements: [] Nutritional Intake: [] IV Site: [] [place]an Catheter: [] - Assessment/Plan Antibiotics: [] Assessment/Plan: [] Active and Suspected Problems (Last Reviewed 11/27/17 @ 09:38 by Carlota Miguel) Pancytopenia (Acute) MRSA infected chest tube - removed 12/08/[address] Padron. Cont iv vanc. Fever resolved. CT chest showed no new abscess. Bcx remain neg. Plan on d/c home tomorrow on 10 days of doxy 100mg bid. pancytopenia with NSCLC Will follow, d/w primary team
--- NOTE | 2017-12-12 19:02 | PN_ITS ---
Patient Problems: Active and Suspected Problems (Last Reviewed 11/27/17 @ 09:38 by Carlota Miguel) Pancytopenia (Acute) Subjective: Patient seen and examined today, I talked with oncology about his care, oncology would like the patient to receive 1 more shot of Shad X of his white blood cell count is below 10,000 tomorrow and he can be discharged to home. I talked briefly with infectious diseases also. - Physical Exam General: Alert, Oriented x3, Cooperative, No apparent distress, Well developed HEENT: Atraumatic, PERRLA, EOMI, Normocephalic Oral: Moist Mucosa Neck: Supple, No JVD, No Nuchal Rigidity, Trachea Midline, Thyroid Normal Size and Texture Lungs: Clear to auscultation, No rhonchi, No wheeze, No rales, Diminished - Diminished lung sounds at the left base Cardiovascular: Regular rate, Regular Rhythm, Normal S1, Normal S2, No murmurs Abdomen: Bowel Sounds Present, Soft, Non Tender Extremities: No edema, Capillary Refill Less than 3 Seconds Skin: No rashes, No breakdown Musculoskeletal: Cachexia, Muscle Wasting Neurological: Cranial nerves II-XII grossly intact, Motor Exam 5/5 strength throughout, Sensory exam intact to light touch and pain Psych/Mental Status: Normal Affect, Appropriate, Alert and oriented to time, place, person, mood and affect Vital Signs Temp Pulse Resp BP Pulse Ox 98.8 F 87 18 102/71 96 12/12/17 14:27 12/12/17 14:27 12/12/17 14:27 12/12/17 14:27 12/12/17 14:27 Oxygen Delivery Method Room Air Weight: 57.1 kg Body Mass Index (BMI) 19.7 Intake and Output for Last 24 Hours 12/10/17 12/11/17 12/12/17 23:59 23:59 23:59 Intake Total 3493 / 3493 1850 / 1850 3135 / 3135 Output Total 3025 / 3025 1100 / 1100 1150 / 1150 Balance 468 / 468 750 / 750 1984 / 1984 Microbiology Past 72 Hours 12/08/17 09:26 Gram Stain - Final Incision/Surgical Site Wound Culture - Final Meth. resistant Staph. aureus Anaerobic Culture - Final No anaerobic bacteria isolated. 12/08/17 09:26 Gram Stain - Final Incision/Surgical Site Wound Culture - Final Meth. resistant Staph. aureus Anaerobic Culture - Final No anaerobic bacteria isolated. Laboratory Tests Past 24 Hrs 12/12/17 12/12/17 05:20 05:20 WBC 2.0 L RBC 2.69 L Hgb 7.6 L Hct 23.8 L MCV 88.5 MCH 28.3 MCHC 31.9 L RDW 17.9 H RDW Differential 52.2 H Plt Count 85 L MPV 10.2 Immature Gran % (Auto) SPORTS TEAM MARKETING INTERN Neut % (Auto) SPORTS TEAM MARKETING INTERN Lymph % (Auto) SPORTS TEAM MARKETING INTERN [place] % (Auto) SPORTS TEAM MARKETING INTERN Eos % (Auto) SPORTS TEAM MARKETING INTERN Baso % (Auto) SPORTS TEAM MARKETING INTERN Absolute Neuts (auto) 1.4 L Absolute Lymphs (auto) 0.15 L Total Counted 50 Neutrophils % (Manual) 54 Band Neutrophils % 16 H Lymphocytes % (Manual) 8 L Monocytes % (Manual) 14 H Metamyelocytes % 8 H Nucleated RBCs/100 WBC 2 Diff Path Review Reviewed Toxic Granulation 2+ Platelet Estimate SLT DEC RBC Morphology NORM C+C Sodium 136 Potassium 3.8 Chloride 95 L Carbon Dioxide 33.0 H Anion Gap 8 BUN 22 H Creatinine 0.74 Estim Creat Clear Calc 83.59 Est GFR (MDRD) Af Amer 137 Est GFR (MDRD) Non-Af 113 BUN/Creatinine Ratio 29.6 H Glucose 76 Calcium 9.0 Medical Necessity - Tobacco Use Smoking Status: Former smoker - Quit 3 years ago. Had about a 37.5-pack-year smoking history. Assessment/Plan All Active Problems (Last Reviewed 11/27/17 @ 09:38 by Carlota Miguel) Atrial fibrillation and flutter (Resolved) Cellulitis (Acute) Pancytopenia (Acute) #1 infected left Pleurx catheter site-catheter now removed, MRSA cellulitis- this does not seem to be a systemic infection however, anticipate probable discharge tomorrow if patient's white blood cell count remains elevated #2 pancytopenia-secondary to chemotherapy for non-small cell lung cancer- recheck CBC in a.m., continue Granix #3 non-small cell lung cancer-squamous cell cancer #4 hyponatremia-corrected at this time #5 left hemithorax consolidation and effusion in the inferior half of the left hemithorax-possibly secondary to atelectasis and effects of radiation Code Visit Inpatient E&M: [id number] Subs Hosp L2
[2017-12-12 20:16] VITALS: BP 91/54; PULSE 93; RESP 18; TEMP 37.2; O2SAT 93
[2017-12-12] MEDS: oxyCODONE 5 MG Tablet 10 MG GT (21:45)
[2017-12-12 21:56] VITALS: BP 95/61; PULSE 96; RESP 18; TEMP 36.4; O2SAT 99
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
[2017-12-13 04:00] VITALS: BP 100/65; PULSE 80; RESP 18; TEMP 36.4; O2SAT 95
[2017-12-13] MEDS: oxyCODONE 5 MG Tablet 10 MG GT (04:01)
[2017-12-13] MEDS: BENZOCAINE/MENTHOL 1 LOZENGE MUCOUS MEM ×3 (04:01→12:39)
[2017-12-13 05:23] LABS: Hematocrit 23.4 % (40-54); Hemoglobin 7.4 g/dl (13.0-16.5); Mean Corp Hgb Conc 31.6 g/gl (32-36); Mean Corpuscular Hgb 28.2 pg (27.0-32.0); Mean Corpuscular Volume 89.3 fL (80-94); Mean Platelet Vol. 10.1 fl (6.2-12.0); Platelet Count 102 K/mm3 (150-450); RBC Distribution Width CV 17.8 % (11.6-14.6); RBC Distribution Width SD 51.5 fl (35.1-43.9); Red Blood Count 2.62 M/mm3 (4.6-6.2); White Blood Count 5.8 K/mm3 (4.4-11.0)
[2017-12-13 05:25] LABS: POSITIVE COUNT NO; POSITIVE DIFFERENTIAL YES; POSITIVE MORPHOLOGY YES
[2017-12-13 05:26] LABS: Differential Indicated MANUAL DIFF
[2017-12-13 05:58] LABS: Lymphocyte 13 % (19-41); Metamyelocyte 1 % (0-1); Monocyte 3 % (0-10); Neutrophil-Band 9 % (0-5); Neutrophil-Segmented 74 % (47-70); Platelet Estimate ADEQUATE (ADEQ); Red Cell Morphology NORM C+C NORMAL (NORM C&C); Total Cells Counted 100 (MANUAL DIFF)
[2017-12-13 05:59] LABS: Absolute Lymphocyte Count 0.74 X10^3/ul (0.83-4.51); Absolute Neutrophil Count 4.7 X10^3/uL (2.0-7.7); Lymphocyte # 0.74 X10^3/ul (4.0)
[2017-12-13] MEDS: clonazePAM 0.5 MG Tablet GT (06:33)
[2017-12-13] MEDS: Vancomycin IV 1,000 MG/200 ML BAG 200 MG IV (06:33)
[2017-12-13] MEDS: Levothyroxine 150 MCG Tablet GT (06:33)
[2017-12-13] MEDS: 0.9% NaCl VAD Flush IV ×4 (06:36→12:25)
[2017-12-13] MEDS: Omeprazole 20 MG Capsule 40 MG GT (06:40)
[2017-12-13 08:29] VITALS: BP 101/64; PULSE 91; PULSE 98; RESP 17; TEMP 37.2; O2SAT 95
--- NOTE | 2017-12-13 09:41 | PCM.PN.SRG ---
Patient Problems: Active and Suspected Problems (Last Reviewed 11/27/17 @ 09:38 by Carlota Miguel) Pancytopenia (Acute) Subjective: patient states that he feels overall well, looking forward to going home - Physical Exam General: Alert, Oriented x3 Neck: Supple Lungs: - - wound site appears with minimal erythema, healing scab at site, no fluctuance noted Vital Signs Temp Pulse Resp BP Pulse Ox 99.0 F 98 17 101/64 95 12/13/17 08:29 12/13/17 08:29 12/13/17 08:29 12/13/17 08:29 12/13/17 08:29 Oxygen Delivery Method Room Air Weight: 57.1 kg Body Mass Index (BMI) 19.7 Intake and Output for Last 24 Hours 12/11/17 12/12/17 12/13/17 23:59 23:59 23:59 Intake Total 1850 / 1850 3485 / 3485 846 / 846 Output Total 1100 / 1100 1150 / 1150 550 / 550 Balance 750 / 750 2335 / 2335 296 / 296 Microbiology Past 72 Hours 12/08/17 09:26 Gram Stain - Final Incision/Surgical Site Wound Culture - Final Meth. resistant Staph. aureus Anaerobic Culture - Final No anaerobic bacteria isolated. 12/08/17 09:26 Gram Stain - Final Incision/Surgical Site Wound Culture - Final Meth. resistant Staph. aureus Anaerobic Culture - Final No anaerobic bacteria isolated. Laboratory Tests Past 24 Hrs 12/13/17 05:08 WBC 5.8 RBC 2.62 L Hgb 7.4 L Hct 23.4 L MCV 89.3 MCH 28.2 MCHC 31.6 L RDW 17.8 H RDW Differential 51.5 H Plt Count 102 L MPV 10.1 Neut % (Auto) Not Reportable Absolute Neuts (auto) 4.7 Absolute Lymphs (auto) 0.74 L Total Counted 100 Neutrophils % (Manual) 74 H Band Neutrophils % 9 H Lymphocytes % (Manual) 13 L Monocytes % (Manual) 3 Metamyelocytes % 1 Diff Path Review May foll Platelet Estimate ADEQUATE RBC Morphology NORM C+C Medical Necessity - Tobacco Use Smoking Status: Former smoker - Quit 3 years ago. Had about a 37.5-pack-year smoking history. Assessment/Plan All Active Problems (Last Reviewed 11/27/17 @ 09:38 by Carlota Miguel) Atrial fibrillation and flutter (Resolved) Cellulitis (Acute) Pancytopenia (Acute) Impression: s/p removal of tunnelled catheter for infection Plan: much improved cellulitis - none by my exam this morning, except for healing scab Patient denies pain and is looking forward to going home
--- NOTE | 2017-12-13 10:11 | PCM.DC ---
- Discharge Diagnoses Current Active Problems: Current Active and Chronic Problems (Last Reviewed 11/27/17 @ 09:38 by Carlota Miguel) Pancytopenia (Acute) You will use the following diet at home:: No restrictions Your food should be the consistency of: Regular Your liquids should be the consistency of: Regular/Thin Discharge Activity: Return to Normal Activity Weight Bearing Status: Full weight bearing Allergies/Adverse Reactions: Allergies Iodinated Contrast- Oral and IV Dye [CT] Allergy (Mild, Verified 12/07/17 14:52) Rash Medications to take at Discharge Albuterol IH (ProAir) [Proair Hfa] 2 puff INHALATION Q6H PRN 11/10/17 Dexamethasone [Decadron] 1 tablet PO DAILY@0800 11/10/17 Levothyroxine [Synthroid] 1 tablet PO DAILY 11/10/17 Ondansetron [Zofran Odt] 4 mg PO Q8H PRN PRN #30 tab 11/17/17 Oxycodone HCl/Acetaminophen [Percocet 5-325] 1 tablet PO Q6H PRN #90 tablet 11/17/17 Polyethylene Glycol 3350 [Miralax] 17 gm PO DAILY #30 packet 11/17/17 Magic Mouth Wash 15 ml PO Q6H PRN PRN #240 ml 11/27/17 Omeprazole [Prilosec] 20 mg PO DAILY #30 cap 12/03/17 Clonazepam [Klonopin] 0.5 mg PO TID 12/07/17 Bmx Liquid 15 ml PO Q6H PRN ml 12/13/17 Doxycycline [Vibramycin] 100 mg PO BID #20 cap 12/13/17 The following prescriptions were given: Doxycycline [Vibramycin] 100 mg PO BID #20 cap Primary Care Physician: Allison Sarmiento NP-C [Primary Care Provider] - Please follow up with your Primary Care Physician in: in 1-2 weeks Test Results: Test results from this visit will be discussed in further detail at your follow-up appointment, if applicable. Please Follow Up With: Serina Hollingsworth MD When: next week
[2017-12-13] MEDS: TBO-FILGRASTIM 300 MCG/0.5 ML ML SC (10:12)
--- NOTE | 2017-12-13 10:15 | DCINST_ITS ---
- Discharge Diagnoses Current Active Problems: Current Active and Chronic Problems (Last Reviewed 11/27/17 @ 09:38 by Carlota Miguel) Pancytopenia (Acute) You will use the following diet at home:: No restrictions Your food should be the consistency of: Regular Your liquids should be the consistency of: Regular/Thin Discharge Activity: Return to Normal Activity Weight Bearing Status: Full weight bearing Allergies/Adverse Reactions: Allergies Iodinated Contrast- Oral and IV Dye [CT] Allergy (Mild, Verified 12/07/17 14:52) Rash Medications to take at Discharge Albuterol IH (ProAir) [Proair Hfa] 2 puff INHALATION Q6H PRN 11/10/17 Dexamethasone [Decadron] 1 tablet PO DAILY@0800 11/10/17 Levothyroxine [Synthroid] 1 tablet PO DAILY 11/10/17 Ondansetron [Zofran Odt] 4 mg PO Q8H PRN PRN #30 tab 11/17/17 Oxycodone HCl/Acetaminophen [Percocet 5-325] 1 tablet PO Q6H PRN #90 tablet 07/06 Polyethylene Glycol 3350 [Miralax] 17 gm PO DAILY #30 packet 11/17/17 Magic Mouth Wash 15 ml PO Q6H PRN PRN #240 ml 11/27/17 Omeprazole [Prilosec] 20 mg PO DAILY #30 cap 12/03/17 Clonazepam [Klonopin] 0.5 mg PO TID 12/07/17 Bmx Liquid 15 ml PO Q6H PRN ml 12/13/17 Doxycycline [Vibramycin] 100 mg PO BID #20 cap 12/13/17 The following prescriptions were given: Doxycycline [Vibramycin] 100 mg PO BID #20 cap Primary Care Physician: Allison Sarmiento NP-C [Primary Care Provider] - Please follow up with your Primary Care Physician in: in 1-2 weeks Test Results: Test results from this visit will be discussed in further detail at your follow- up appointment, if applicable. Please Follow Up With: Serina Hollingsworth MD When: next week
[2017-12-13 12:19] VITALS: BP 100/58; PULSE 86; RESP 16; TEMP 37.3; O2SAT 96
--- NOTE | 2017-12-15 08:23 | PCM.DC.SUM ---
Discharge Date and Diagnosis Date of Admission: 12/07/17 Date of Discharge: 12/13/17 - Primary Discharge Diagnosis #1 infected left Pleurx catheter site- MRSA cellulitis- #2 pancytopenia-secondary to chemotherapy for non-small cell lung cancer #3 non-small cell lung cancer-squamous cell cancer #4 hyponatremia-corrected at this time #5 left hemithorax consolidation and effusion in the inferior half of the left hemithorax-possibly secondary to atelectasis and effects of radiation - Secondary Discharge Diagnosis Chronic Problems (Last Reviewed 11/27/17 @ 09:38 by Carlota Miguel) PEG (percutaneous endoscopic gastrostomy) status (Chronic) Tobacco dependence in remission (Chronic) Pulmonary nodule, left (Chronic) History of laryngeal cancer (Chronic) Non-small cell carcinoma of left lung, stage 3 (Chronic) Dysphagia (Chronic) Chronic anemia (Chronic) Pleural effusion (Chronic) Chemotherapy management, encounter for (Chronic) Hospital Course and Treatment Operations: None Procedures: - - Removal of Pleurx catheter Summary of Care Provided: The patient is a 62 year old M was seen in the emergency room at [facility] with complaints of discomfort over an area where a Pleurx catheter had been placed in the left chest wall. Patient had seen his general surgeon 2 days prior and was told the catheter was going to have to be removed soon. Evaluation included a CBC which showed a pancytopenia, chemistries were unremarkable, chest x-ray showed a decreased diffusion around the left lung and the presence of a left Pleurx catheter. Patient was given Zosyn in the emergency room, the case was discussed with general surgery and the hospitalist service admitted the patient to [place] [id number] with his oncologist to consult. The Pleurx catheter was removed by general surgery, cultures of the area grew out methicillin resistant staph aureus, infectious diseases was consulted, patient was given Shad X during his hospitalization and his white blood cell count slowly increased. There were no complications during the hospitalization of this patient, on 12/13/17, patient was seen and examined and felt to be in stable condition for discharge home Discharge Activity: Return to Normal Activity Weight Bearing Status: Full weight bearing Home Medications: Medications to take at Discharge Albuterol IH (ProAir) [Proair Hfa] 2 puff INHALATION Q6H PRN 11/10/17 Dexamethasone [Decadron] 1 tablet PO DAILY@0800 11/10/17 Levothyroxine [Synthroid] 1 tablet PO DAILY 11/10/17 Ondansetron [Zofran Odt] 4 mg PO Q8H PRN PRN #30 tab 11/17/17 Oxycodone HCl/Acetaminophen [Percocet 5-325] 1 tablet PO Q6H PRN #90 tablet 11/17/17 Polyethylene Glycol 3350 [Miralax] 17 gm PO DAILY #30 packet 11/17/17 Magic Mouth Wash 15 ml PO Q6H PRN PRN #240 ml 11/27/17 Omeprazole [Prilosec] 20 mg PO DAILY #30 cap 12/03/17 Clonazepam [Klonopin] 0.5 mg PO TID 12/07/17 Bmx Liquid 15 ml PO Q6H PRN ml 12/13/17 Doxycycline [Vibramycin] 100 mg PO BID #20 cap 12/13/17 Following Prescrptions Were Given to Patient: Doxycycline [Vibramycin] 100 mg PO BID #20 cap Primary Care Physician: Allison Sarmiento NP-C [Primary Care Provider] - Please follow up with your Primary Care Physician in: in 1-2 weeks Please Follow Up With: Serina Hollingsworth MD When: next week Disposition: Home Minutes spent on discharge:: 32 Patient Condition:: Stable Medical Necessity - Tobacco Use Smoking Status: Former smoker - Quit 3 years ago. Had about a 37.5-pack-year smoking history. Meaningful Use Info Meaningful Use Diagnoses (Choose all that apply): None applicable Code Visit Inpatient E&M: 36285 Disch Hosp
--- NOTE | 2017-12-15 08:30 | DS.PCM_ITS ---
Discharge Date and Diagnosis Date of Admission: 12/07/17 Date of Discharge: 12/13/17 - Primary Discharge Diagnosis #1 infected left Pleurx catheter site- MRSA cellulitis- #2 pancytopenia-secondary to chemotherapy for non-small cell lung cancer #3 non-small cell lung cancer-squamous cell cancer #4 hyponatremia-corrected at this time #5 left hemithorax consolidation and effusion in the inferior half of the left hemithorax-possibly secondary to atelectasis and effects of radiation - Secondary Discharge Diagnosis Chronic Problems (Last Reviewed 11/27/17 @ 09:38 by Carlota Miguel) PEG (percutaneous endoscopic gastrostomy) status (Chronic) Tobacco dependence in remission (Chronic) Pulmonary nodule, left (Chronic) History of laryngeal cancer (Chronic) Non-small cell carcinoma of left lung, stage 3 (Chronic) Dysphagia (Chronic) Chronic anemia (Chronic) Pleural effusion (Chronic) Chemotherapy management, encounter for (Chronic) Hospital Course and Treatment Operations: None Procedures: - - Removal of Pleurx catheter Summary of Care Provided: The patient is a 62 year old M was seen in the emergency room at [facility] with complaints of discomfort over an area where a Pleurx catheter had been placed in the left chest wall. Patient had seen his general surgeon 2 days prior and was told the catheter was going to have to be removed soon. Evaluation included a CBC which showed a pancytopenia, chemistries were unremarkable, chest x-ray showed a decreased diffusion around the left lung and the presence of a left Pleurx catheter. Patient was given Zosyn in the emergency room, the case was discussed with general surgery and the hospitalist service admitted the patient to [place] [address] with his oncologist to consult. The Pleurx catheter was removed by general surgery, cultures of the area grew out methicillin resistant staph aureus, infectious diseases was consulted, patient was given Shad X during his hospitalization and his white blood cell count slowly increased. There were no complications during the hospitalization of this patient, on 12/13/17, patient was seen and examined and felt to be in stable condition for discharge home Discharge Activity: Return to Normal Activity Weight Bearing Status: Full weight bearing Home Medications: Medications to take at Discharge Albuterol IH (ProAir) [Proair Hfa] 2 puff INHALATION Q6H PRN 11/10/17 Dexamethasone [Decadron] 1 tablet PO DAILY@0800 11/10/17 Levothyroxine [Synthroid] 1 tablet PO DAILY 11/10/17 Ondansetron [Zofran Odt] 4 mg PO Q8H PRN PRN #30 tab 11/17/17 Oxycodone HCl/Acetaminophen [Percocet 5-325] 1 tablet PO Q6H PRN #90 tablet 07/06 Polyethylene Glycol 3350 [Miralax] 17 gm PO DAILY #30 packet 11/17/17 Magic Mouth Wash 15 ml PO Q6H PRN PRN #240 ml 11/27/17 Omeprazole [Prilosec] 20 mg PO DAILY #30 cap 12/03/17 Clonazepam [Klonopin] 0.5 mg PO TID 12/07/17 Bmx Liquid 15 ml PO Q6H PRN ml 12/13/17 Doxycycline [Vibramycin] 100 mg PO BID #20 cap 12/13/17 Following Prescrptions Were Given to Patient: Doxycycline [Vibramycin] 100 mg PO BID #20 cap Primary Care Physician: Allison Sarmiento NP-C [Primary Care Provider] - Please follow up with your Primary Care Physician in: in 1-2 weeks Please Follow Up With: Serina Hollingsworth MD When: next week Disposition: Home Minutes spent on discharge:: 32 Patient Condition:: Stable Medical Necessity - Tobacco Use Smoking Status: Former smoker - Quit 3 years ago. Had about a 37.5-pack-year smoking history. Meaningful Use Info Meaningful Use Diagnoses (Choose all that apply): None applicable Code Visit Inpatient E&M: 12316 Disch Hosp
[2017-12-15 13:31] LABS: Pathologist Review Reviewed
--- NOTE | 2017-12-15 15:57 | CASEMGMT ---
MARIO COYLE Discharge Follow-up Phone Call: LIANNE: 14 Strata: 4 Call Date: 12/15/17 Discharge Date: 12/13/17 Time of Call: 1557 Duration: 1 min Admitting Diagnosis: Small cell lung cancer with pleural effusion. MARIO COYLE attempted to complete follow-up phone call after recent hospitalization. No answer and voice message left with return contact information.
== END 2017-12-13 13:55 | disposition home or self-care (01) | DRG 919 ==
LOC: ED 16:17 → MS3 17:04
PROVIDERS: Internal Medicine Hematology & Oncology; Surgery; Admitting Provider Student in an Organized Health Care Education/Training Program; Emergency Provider Emergency Medicine; Family Provider Nurse Practitioner Family; PCP Nurse Practitioner Family; Visit Provider Internal Medicine
PROC: 0WPB30Z Removal of Drainage Device from Left Pleural Cavity, Percutaneous Approach (ICD-10-PCS; CPT 32550; principal; 2017-12-08 11:15)
DX: T85.79XA Infection and inflammatory reaction due to other internal prosthetic devices, implants and grafts, initial encounter (principal); D61.810 Antineoplastic chemotherapy induced pancytopenia; L03.313 Cellulitis of chest wall; J91.0 Malignant pleural effusion; C34.90 Malignant neoplasm of unspecified part of unspecified bronchus or lung; E87.1 Hypo-osmolality and hyponatremia; E03.9 Hypothyroidism, unspecified; R13.10 Dysphagia, unspecified; R91.1 Solitary pulmonary nodule; D64.9 Anemia, unspecified; F41.9 Anxiety disorder, unspecified; T45.1X5A Adverse effect of antineoplastic and immunosuppressive drugs, initial encounter; Z85.21 Personal history of malignant neoplasm of larynx; Z87.891 Personal history of nicotine dependence; Z93.1 Gastrostomy status; R50.81 Fever presenting with conditions classified elsewhere; B95.62 Methicillin resistant Staphylococcus aureus infection as the cause of diseases classified elsewhere
CPT/HCPCS: 36415; 71046; 71260; 80048; 80202; 82565; 83605; 85025; 85027; 86644; 86850; 86900; 86920; 86922; 87040; 87070; 87075; 87077; 87186; 87205; 94640; 97802; 99283; J7030; J7040; P9040; Q9967; A4216; J1447

== ENCOUNTER 2017-12-24 09:36 | Inpatient (IN) | payer OTHER, MEDICARE, SELFPAY ==
[2017-11-06 15:18] VITALS: BMI 20.7
[2017-12-24] VITALS (11 sets, daily range): BP systolic 91–111; BP diastolic 50–71; PULSE 73–171; RESP 14–21; TEMP 36.6–37.1; O2SAT 97–100; BMI 19.3; BMI 19.1
--- NOTE | 2017-12-24 09:51 | RAD_ITS ---
STUDY: X-RAY CHEST REASON FOR EXAM: Male, 62 years old. Irregular heart rate, status post radiation treatment TECHNIQUE: Single AP portable view of the chest. COMPARISON: 12/07/2017 FINDINGS: Cardiac monitoring leads overlie the chest. Implanted central catheter is seen overlying the left chest with the tip in the SVC. The previously seen pleural catheter at the left lung base has been removed. The right lung is hyperinflated. There is volume loss within the left lung. There is left pleural thickening or left pleural effusion. Normal size heart. Normal mediastinum and tashia. Normal visualized pulmonary arteries. Normal visualized aortic arch and descending thoracic aorta. Normal visualized thoracic spine. Normal visualized ribs, clavicles, and shoulders. There is no demonstrated abnormality of the visualized soft tissue structures of the upper abdomen. RAD/Chest 1 View (Portable) IMPRESSION: Continued pleural thickening or effusion at the left lung base. Removal of the previously seen left pleural tube. Electronically Signed: Steve Marquez DO at 10:47 EDT Tel , Service support ,
[2017-12-24 10:07] LABS: Absolute Lymphocyte Count 0.06 X10^3/ul (0.83-4.51); Absolute Neutrophil Count 6.1 X10^3/uL (2.0-7.7); Basophil# 0.02 X10^3/uL; Basophil% 0.3 % (0-1); Hematocrit 25.4 % (40-54); Hemoglobin 8.2 g/dl (13.0-16.5); Lymphocyte # 0.06 X10^3/ul (4.0); Lymphocyte % 0.9 % (19-41); Mean Corp Hgb Conc 32.3 g/gl (32-36); Mean Corpuscular Hgb 29.6 pg (27.0-32.0); Mean Corpuscular Volume 91.7 fL (80-94); Mean Platelet Vol. 8.2 fl (6.2-12.0); Monocyte# 0.15 X10^3/uL; Monocyte% 2.4 % (0-10); Neutrophil # 6.06 X10^3/uL (2.7-7.7); Neutrophil % 95.9 % (47-70); Platelet Count 444 K/mm3 (150-450); RBC Distribution Width CV 22.4 % (11.6-14.6); RBC Distribution Width SD 62.1 fl (35.1-43.9); Red Blood Count 2.77 M/mm3 (4.6-6.2); White Blood Count 6.3 K/mm3 (4.4-11.0)
[2017-12-24 10:09] LABS: Differential Indicated SCAN CRITERIA MET; POSITIVE COUNT NO; POSITIVE DIFFERENTIAL YES; POSITIVE MORPHOLOGY YES
[2017-12-24 10:22] LABS: Anion Gap 8 (5-15); BUN 29 mg/dL (7-18); BUN/Creat Ratio 31.6 RATIO (10-20); Calcium,Total 8.7 mg/dL (8.5-10.1); Chloride 95 mmol/L (98-107); Creatinine, Serum 0.92 mg/dL (0.70-1.30); EST Glomerular Filtration Rate 89 mL/min (>60); Est Glom Filt Rate - Afr Amer 107 mL/min (>60); Glucose 119 mg/dL (74-106); Potassium 4.4 mmol/L (3.5-5.1); Sodium Level 133 mmol/L (136-145)
--- NOTE | 2017-12-24 10:23 | ED.VISSUMM ---
- ER Visit Summary Date of Service: 12/24/17 Chief Complaint: Elevated heart rate History of Present Illness: The patient is a 62 M who presents with an elevated heart rate. Patient was here getting radiation treatment for his non-small cell lung cancer. They noted that his heart rate was elevated. He has no chest pain, shortness of breath or feels any palpitations. He tells me he has no history of atrial fibrillation/flutter, however upon chart review he does have a diagnosis of this being resolved. This was entered by Dr. Arreaga. Patient was here last week for a infected Pleurx. It grew out MRSA. He states he took his last antibiotic last night. He denies any fevers or pain in that area. Physical Examination: Vital signs reviewed. HEENT exam unremarkable. Heart is tachycardic and at times irregular and at times regular rhythm without murmurs. Lungs are clear to auscultation. There is an old scar on the left side of the chest. It is not erythematous. No draining. Abdomen is soft and nontender. PEG tube in the left upper quadrant is unremarkable. Extremities reveal no edema. Skin exam normal. Neurologic exam normal. Test Results: EKG was atrial flutter with a rate of 166. Hemoglobin 8.2. Sodium 133, chloride 95. Troponin is 0.057. Chest x-ray reveals some chronic pleural thickening Emergency Department Course and Treatment: Patient was given Cardizem and afterwards he converted to a normal sinus rhythm. I discussed this with Dr. Arreaga, on-call for cardiology. He would recommend admission to the elevated troponin. This was discussed with hospitalist for admission Treatment Plan: [] Disposition: Admit Impression: A. fib with RVR This note was generated with [employer] software. It may contain incorrect words, spelling, and punctuation that were not noted in review of the chart prior to signing ED Disposition - Plan for ED Patient: Chief Complaint: Palpitations Referrals: Allison Sarmiento NP-C [Primary Care Provider] -
[2017-12-24] MEDS: dilTIAZem 25 MG/5 ML Vial 20 MG IV BOLUS (10:47)
[2017-12-24] MEDS: Aspirin 81 MG TAB.CHEW 324 MG PO (10:47)
--- NOTE | 2017-12-24 10:58 | ED.RN ---
HR DROPPED FROM 171 TO 87 AFTER ADMIN OF CARDIZEM. RHYTHM A-FIB CONVERTED SHORTLY AFTER ATMOSPHERIC SCIENCES PROFESSOR. PHYSICIAN AWARE.
--- NOTE | 2017-12-24 11:45 | HP.PCM_ITS ---
Problem List (1) PEG (percutaneous endoscopic gastrostomy) status Status: Chronic (2) History of laryngeal cancer Status: Chronic (3) Non-small cell carcinoma of left lung, stage 3 Status: Chronic (4) Dysphagia Status: Chronic (5) Chronic anemia Status: Chronic History of Present Illness Date of Admission: 12/24/17 Chief Complaint: Fast heart rate. The patient is a 62 year old M with past medical history as mentioned above was sent to the emergency department from radiotherapy department because of elevated heart rate. Today, patient came to the radiation treatment department for radiotherapy for non-small cell lung cancer and he was noted to have heart rate in the 160s. He was sent to ER for evaluation. The patient denied any symptoms. He denied chest pain, shortness of breath, palpitation, dizziness, lightheadedness, syncope or presyncope. Patient denies any history of atrial fibrillation or flutter, no history of CAD. In his chart, atrial flutter was listed. He has a history of non-small cell lung cancer, currently on chemotherapy and radiation and his last chemotherapy was last and he supposed to get radiation treatment today. He had history of chronic dysphagia status post PEG tube placement and patient has been on the drinking water by mouth and he takes most of his medications through the PEG tube. He has a history of chronic anemia, baseline hemoglobin has been around 8 g/dL since October and it is normocytic anemia likely due to anemia of chronic disease secondary to cancer. He had history of hypothyroidism and he has been on levothyroxine. In the emergency room, patient was found to be in atrial flutter. He received 1 dose of IV Cardizem bolus and he converted back to sinus rhythm. At this time, heart rate has been in the 90s, blood pressure is borderline. Patient is asymptomatic. Routine blood work was remarkable for hemoglobin of 8.2 g/dL, sodium of 133, otherwise normal. Troponin is 0.057. EKG revealed atrial flutter with heart rates in the 160s, no acute ischemic changes. Chest x-ray showed left pleural thickening, no acute infiltrate or consolidation. He is being admitted for atrial flutter with RVR for evaluation. Past Medical History Past Medical History (Chronic Problems): Chronic Problems (Last Reviewed 12/24/17 @ 09:52 by Jania Vallejo) PEG (percutaneous endoscopic gastrostomy) status (Chronic) Tobacco dependence in remission (Chronic) Pulmonary nodule, left (Chronic) History of laryngeal cancer (Chronic) Non-small cell carcinoma of left lung, stage 3 (Chronic) Dysphagia (Chronic) Chronic anemia (Chronic) Pleural effusion (Chronic) Chemotherapy management, encounter for (Chronic) Medical History: Medical History (Last Reviewed 12/24/17 @ 09:52 by Jania Vallejo) Anemia D64.9 Chicken pox B01.9 Dysphagia R13.10 Hypernatremia E87.0 Hyponatremia E87.1 Hypothyroidism E03.9 LEFT WRIST SURGERY Laryngeal cancer C32.9 Lymphadenitis I88.9 Measles B05.9 Mumps B26.9 Status post insertion of percutaneous endoscopic gastrostomy (PEG) tube Z93.1 port placement Allergies Iodinated Contrast- Oral and IV Dye [CT] Allergy (Mild, Verified 12/24/17 10:54) Rash Home Medications: Ambulatory Orders Medication Instructions Recorded Dexamethasone [Decadron] 1 tablet PO DAILY@0800 11/10/17 Levothyroxine [Synthroid] 1 tablet PO DAILY 11/10/17 Ondansetron [Zofran Odt] 4 mg PO Q8H PRN PRN #30 tab 11/17/17 Polyethylene Glycol 3350 [Miralax] 17 gm PO DAILY #30 packet 11/17/17 Magic Mouth Wash 15 ml PO Q6H PRN PRN #240 ml 11/27/17 Omeprazole [Prilosec] 20 mg PO DAILY #30 cap 12/03/17 Albuterol IH (ProAir) [Proair Hfa] 2 puff INHALATION Q6H PRN #1 12/18/17 inhaler Oxycodone HCl/Acetaminophen 1 tablet PO Q6H PRN #90 tablet 12/18/17 [Percocet 5-325] Surgical History: Surgical History (Last Reviewed 12/24/17 @ 09:52 by Jania Vallejo) History of hernia repair Z98.890, Z87.19 History of thoracentesis Z98.890 Surgical History: herniorrhaphy, - - PEG tube placement. Psychiatric History: Anxiety Lives: Alone Smoking Status: Former smoker - *Family History Paternal Family History: Family History (Last Reviewed 12/24/17 @ 09:52 by Jania Vallejo) Father Heart disease History Items: Heart Disease - Maternal Family History: Family History (Last Reviewed 12/24/17 @ 09:52 by Jania Vallejo) Father Heart disease History Items: No pertinent history Review of Systems Constitutional: Denies: Anorexia, Chills, Fever, Weakness Eyes: Denies: Blurred vision, Double vision, Drainage, Redness HEENT: Denies: Difficulty Hearing, Ear Pain, Eye Pain, Nasal Congestion, Sore Throat Cardiovascular: Denies: Chest Pain, Chest Pressure, Chest Tightness, Heaviness, Light Headedness, Palpitations, Syncope Respiratory: Denies: Cough, Pleuritic Pain, Shortness of Breath, Sputum production, Wheezing Gastrointestinal: Denies: Abdominal Pain, Constipation, Diarrhea, Nausea, Vomiting Genitourinary: Denies: Dysuria, Frequency, Hematuria Musculoskeletal: Denies: Arm Pain, Back Pain, Foot Pain Skin: Denies: Dryness, Rash Neurological: Denies: Balance problems, Double vision, Change in Speech, Slurred speech, Confusion, Focal weakness, Headaches, Incoordination Psychiatric: Denies: Anxiety, Depression Endocrine: Denies: Change in Body Habitus, Polydipsia VTE Information - Inpt Only VTE Present on Admission: No VTE Mechan Device Prophylaxis: None VTE Pharm Prophylaxis ordered?: Yes - Physical Exam General: Alert, Oriented x3, Cooperative, No apparent distress HEENT: Atraumatic, PERRLA, EOMI, Normocephalic Oral: Moist Mucosa, No Gingival or Mucosal Lesions/ Ulcerations Neck: Supple, No JVD, Negative Carotid Bruits, Trachea Midline, Thyroid Normal Size and Texture Lungs: No wheeze, No rales, Diminished, Rhonchi, - - Diminished breath sounds bilateral, more at the bases. Cardiovascular: Regular rate, Regular Rhythm, Normal S1, Normal S2, No murmurs, PMI Normal Abdomen: Bowel Sounds Present, Soft, Non Tender, Non-Distended, No Hepato- splenomegaly, - - PEG tube in place. Extremities: No clubbing, No cyanosis, No edema Skin: No rashes, No breakdown Lymphatic: No Cervical, Supraclavicular, or Inguinal Adenopathy Neurological: Cranial nerves II-XII grossly intact, Motor Exam 5/5 strength throughout Psych/Mental Status: Normal Affect, Appropriate, Alert and oriented to time, place, person, mood and affect Vital Signs Temp Pulse Resp BP Pulse Ox 98.2 F 87 14 98/70 99 12/24/17 09:36 12/24/17 11:25 12/24/17 11:25 12/24/17 11:25 12/24/17 11:25 Oxygen Flow Rate (L/min) 2 Oxygen Delivery Method Room Air Weight: 123 lb Body Mass Index (BMI) 19.3 Laboratory Tests Past 24 Hrs 12/24/17 12/24/17 12/24/17 09:57 09:57 09:57 WBC 6.3 RBC 2.77 L Hgb 8.2 L Hct 25.4 L MCV 91.7 MCH 29.6 MCHC 32.3 RDW 22.4 H RDW Differential 62.1 H Plt Count 444 MPV 8.2 Immature Gran % (Auto) 0.500 Neut % (Auto) 95.9 H Lymph % (Auto) 0.9 L [place] % (Auto) 2.4 Eos % (Auto) 0.0 Baso % (Auto) 0.3 Absolute Neuts (auto) 6.1 Absolute Lymphs (auto) 0.06 L Total Counted Not Reportable Differential Comment COMMENT PT 13.0 INR 1.0 Sodium 133 L Potassium 4.4 Chloride 95 L Carbon Dioxide 30.0 Anion Gap 8 BUN 29 H Creatinine 0.92 Estim Creat Clear Calc 65.70 Est GFR (MDRD) Af Amer 107 Est GFR (MDRD) Non-Af 89 BUN/Creatinine Ratio 31.6 H Glucose 119 H Calcium 8.7 Troponin I 0.057 H Clinical Impression(s) from Imaging Studies Chest X-Ray 12/24/17 09:51 IMPRESSION: Continued pleural thickening or effusion at the left lung base. Removal of the previously seen left pleural tube. Electronically Signed: Steve Marquez DO at 10:47 EDT Tel , Service support , Assessment/Plan All Active Problems (Last Reviewed 12/24/17 @ 09:52 by Jania Vallejo) Atrial fibrillation and flutter (Resolved) This is a 62 years old male patient was sent to emergency department from the radiation therapy department for elevated heart rate, found to have atrial flutter with RVR and is being admitted for treatment and evaluation. #1 atrial flutter with RVR: Unclear of this is new onset or patient has a history of. In the ED, patient received dose of IV Cardizem and he converted back to sinus rhythm. EKG revealed atrial flutter with RVR, no acute ischemic changes. At this time, heart rate has been in the 90s, blood pressure is borderline, patient is asymptomatic. Troponin is borderline elevated. He had 2D echocardiogram back in October, that revealed ejection fraction of 55%, RVSP of 31 and no significant valvular heart disease. His TSH was normal on October,. Patient has no history of heart disease in the past. Plan: Admit to PCU, cardiac monitoring, serial cardiac enzymes, repeat EKG tomorrow morning , repeat CBC and BMP tomorrow, check serum magnesium, cardiology consult, PT OT evaluation and treatment. His [id number] score is 1 based on his age, he is at low to moderate risk of stroke and he is a candidate for antiplatelets only or anticoagulation. #2 non-small cell lung cancer: Currently on chemotherapy and radiation. Last chemotherapy was last and he was getting radiation treatment today. At this time, stable, recommend follow-up with oncology as outpatient. #3 recent history of MRSA infected/cellulitis of left Pleurx catheter site: Patient mentioned that he completed his antibiotics today morning. Incision site of the left Pleurx catheter is clean, dry, no erythema and no evidence of infection. #4 left pleural effusion: Status post removal of left Pleurx catheter, resolved. #5 chronic anemia: It is normocytic anemia due to anemia of chronic disease secondary to cancer. Baseline hemoglobin has been around 8 g/dL. Admission hemoglobin is 8.2 g/dL, stable at baseline. No indication for transfusion. #6 chronic dysphagia: Status post PEG tube placement, continue with tube feeds, nutrition consult. 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 #8 DVT prophylaxis: Subcu Lovenox. This note was generated with [employer] software. It may contain incorrect words, spelling, and punctuation that were not noted in checking the note before signing. Code Visit Inpatient E&M: 36207 Init Hosp L3
--- NOTE | 2017-12-24 15:17 | NURSING ---
Spoke with Thu (hospital manager) about TF for patient. At home pt is on Isosource 250ml TID. The conversion for that is Jevity 1.5. Per Thu, hospital manager left for day but will evaluate pt first thing in am.
--- NOTE | 2017-12-24 15:24 | NURSING ---
Spoke with Raquel in pharmacy- she will put order in for Jevity 1.5 bolus feedings according to what he verbally stated he does at home which is bolus feedings at 0700, 1400, 1900 followed by 50 ml flushes of NS before and after feedings.
[2017-12-24] MEDS: 0.9% Normal Saline 1,000 ML 75 ML IV (16:44)
[2017-12-24] MEDS: Jevity 1.5. 1,000 ML Bottle 250 ML GT (19:58)
--- NOTE | 2017-12-24 21:13 | CON.PCM_ITS ---
Problem List (1) Atrial fibrillation and flutter Status: Acute (2) Non-small cell carcinoma of left lung, stage 3 Status: Chronic (3) Chronic anemia Status: Chronic Reason for Consult Date of Consultation: 12/24/17 History of Present Illness: The patient is a 62 year old white male with a history of paroxysmal atrial fibrillation/flutter who presents for recurrent atrial fibrillation/flutter and concerns of indeterminate troponin I levels superimposed upon a history of underlying lung carcinoma with ongoing chemotherapy and radiation therapy and pleural effusion status post placement of an subsequent removal (secondary to concerns of infection) of a Pleurx catheter. He states he was at radiation therapy today. During his evaluation he noted the medical team noted his heart rate was elevated. They referred him to the [facility] emergency department. There he was found to have recurrent paroxysmal atrial fibrillation/flutter. He was treated with IV diltiazem and regaining sinus rhythm. He states he did not sense his rapid rate. He had no ongoing concerns of chest discomfort or change in his respiratory status. There was no sensation of near syncope or syncope. He was hopeful to be released home for continued outpatient follow-up. However, a troponin I level was taken in the emergency department and was found to be indeterminate. Thus he was placed in the hospital for further evaluation and care. At the present time he is in sinus rhythm. He states he still has no concerns of chest discomfort or any change in his respiratory status. He has denied any obvious palpitations or sensations of near syncope or having any previous syncopal event. He states he cannot take oral medications well and thus his medications and his nourishment has to be placed through his PEG tube. He is also still in need of additional chemotherapy and radiation therapy. He notes his Pleurx catheter was removed secondary to concerns of infection.. [] Past Medical History Allergies/Adverse Reactions: Allergies Iodinated Contrast- Oral and IV Dye [CT] Allergy (Mild, Verified 12/24/17 10:54) Rash Home Medications: Ambulatory Orders Medication Instructions Recorded Dexamethasone [Decadron] 1 tablet PO DAILY@0800 11/10/17 Levothyroxine [Synthroid] 1 tablet PO DAILY 11/10/17 Ondansetron [Zofran Odt] 4 mg PO Q8H PRN PRN #30 tab 11/17/17 Polyethylene Glycol 3350 [Miralax] 17 gm PO DAILY #30 packet 11/17/17 Magic Mouth Wash 15 ml PO Q6H PRN PRN #240 ml 11/27/17 Omeprazole [Prilosec] 20 mg PO DAILY #30 cap 12/03/17 Albuterol IH (ProAir) [Proair Hfa] 2 puff INHALATION Q6H PRN #1 12/18/17 inhaler Oxycodone HCl/Acetaminophen 1 tablet PO Q6H PRN #90 tablet 12/18/17 [Percocet 5-325] Past Medical History (Chronic Problems): Chronic Problems (Last Reviewed 12/24/17 @ 09:52 by Jania Vallejo) PEG (percutaneous endoscopic gastrostomy) status (Chronic) Tobacco dependence in remission (Chronic) Pulmonary nodule, left (Chronic) History of laryngeal cancer (Chronic) Non-small cell carcinoma of left lung, stage 3 (Chronic) Dysphagia (Chronic) Chronic anemia (Chronic) Pleural effusion (Chronic) Chemotherapy management, encounter for (Chronic) Surgical History: herniorrhaphy, - - PEG tube placement. Psychiatric History: Anxiety - *Family History Paternal Family History: Family History (Last Reviewed 12/24/17 @ 09:52 by Jania Vallejo) Father Heart disease History Items: Heart Disease - Maternal Family History: Family History (Last Reviewed 12/24/17 @ 09:52 by Jania Vallejo) Father Heart disease History Items: No pertinent history Lives: Alone Smoking Status: Former smoker Alcohol: None Drugs: None Review of Systems - Review of Systems General: Reports: Weight Loss. Denies: Fever, Fatigue, Night Sweats Cardiovascular: Denies: Chest Discomfort, Shortness of Breath, Orthopnea, PND, Peripheral Edema, Palpitations, Lightheadedness, Dizziness, Near Syncope, Syncope Respiratory: Denies: Cough, Sputum Production, Hemoptysis Gastrointestinal: Denies: Hematemesis, Hematochezia, Melena Genitourinary: Denies: Dysuria, Hematuria Skin: Denies: Rash Subjectve: This is a thin cachectic appearing 62-year-old white male who appears to be resting comfortably at the moment in no acute distress. Objective: Vital Signs Temp Pulse Resp BP Pulse Ox 97.9 F 79 16 97/50 L 100 12/24/17 18:53 12/24/17 19:00 12/24/17 18:53 12/24/17 18:53 12/24/17 18:53 Oxygen Flow Rate (L/min) 2 Oxygen Delivery Method Nasal Cannula Weight: 122 lb 2.177 oz Body Mass Index (BMI) 19.1 Intake and Output for Last 24 Hours 12/22/17 12/23/17 12/24/17 23:59 23:59 23:59 Intake Total 133 / 133 Output Total 250 / 250 Balance -117 / -117 General: Awake, Alert, Oriented x 3, No Acute Distress Neck: No JVD Lungs: Diminished Reinaldo Bases Cardiovascular: Regular Rhythm, Normal S1, Normal S2 Abdomen: Bowel Sounds Present, Soft, Non Tender Extremities: No edema Neurological: No Focal Motor or Sensory Deficit Psych/Mental Status: Appropriate, Normal Affect 12/24/17 14:10: Magnesium 2.0 12/24/17 14:10: Troponin I 0.069 H 12/24/17 16:35: Troponin I 0.060 H Rhythm: Sinus rhythm EKG: Atrial flutter with nonspecific ST segment abnormality ECHO: 11/11/2017: Left ventricle normal with an LVEF of 55%; trivial MR/TR; mild diffuse aortic valve thickening; trivial TX; echolucency compatible with a pleural effusion; estimated RV systolic pressure of 31 mmHg; unable to assess diastolic dysfunction Chest x-ray: Preliminary evaluation: Right lung: Hyperinflated; left lung: Continued evidence of left pleural effusion: Please see official report Assessment/Plan 1. Paroxysmal atrial fibrillation/flutter The patient has had a recurrence of his paroxysmal atrial dysrhythmia with atrial flutter. He appeared without obvious symptoms or hemodynamic compromise. He was treated with IV diltiazem and regain sinus rhythm. At the present time he is being monitored in sinus rhythm. He is being assessed based upon an indeterminate troponin I level which upon repeat has remained indeterminant. His case was reviewed with him. At the present time the etiology of the indeterminate troponin I level may be secondary to a type II event with supply demand mismatch secondary to the underlying atrial dysrhythmia with rapid ventricular response versus a primary acute cardiovascular event without other associated symptoms or objective findings. At the same time other potential noncardiovascular etiologies cannot necessarily be excluded. From a cardiac standpoint he is going to be monitored. He is going to initiate medical management with diltiazem therapy as he has responded to this with respect to his atrial dysrhythmia. He has not been on anticoagulant therapy secondary to his underlying lung carcinoma, anemia, and his need for previous invasive evaluation and care. This could change depending upon his future clinical course. A discussion was held with him as to further evaluation care of his indeterminate troponin I level for the possibility of underlying CAD either noninvasively or invasively. At the present time he is willing to undergo a noninvasive evaluation such as a pharmacologic stress nuclear imaging study. He states that he has not sure at this time, and would have to give consideration to, if he would require further evaluation with a diagnostic cardiac catheterization as to whether or not he would want to do that noting his other medical conditions. 2. 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 It appears he requires continued chemotherapy and radiation therapy. 3. Anemia He remains anemic. This may be anemia of chronic disease if he has no obvious deficiencies or obvious hemorrhagic issues. Depending upon his H&H he may eventually require PRBCs to increase his oxygen carrying capacity and assist with any underlying cardiovascular conditions. Comment: The patient's case has been discussed and reviewed with the patient and previously with the [facility] emergency department staff.
[2017-12-24] MEDS: oxyCODONE 5 MG Tablet GT (23:30)
[2017-12-24] MEDS: Zolpidem Tartrate 5 MG Tablet GT (23:31)
[2017-12-24] MEDS: dilTIAZem 30 MG Tablet GT (23:31)
[2017-12-25] VITALS (21 sets, daily range): BP systolic 102–121; BP diastolic 48–73; PULSE 73–88; RESP 16; TEMP 36.7–37.4; O2SAT 92–100
[2017-12-25 04:36] LABS: Absolute Lymphocyte Count 0.13 X10^3/ul (0.83-4.51); Absolute Neutrophil Count 2.1 X10^3/uL (2.0-7.7); Basophil# 0.01 X10^3/uL; Basophil% 0.4 % (0-1); Hemoglobin 6.6 g/dl (13.0-16.5); Lymphocyte # 0.13 X10^3/ul (4.0); Lymphocyte % 5.3 % (19-41); Mean Corp Hgb Conc 31.4 g/gl (32-36); Mean Corpuscular Hgb 28.6 pg (27.0-32.0); Mean Corpuscular Volume 90.9 fL (80-94); Mean Platelet Vol. 8.2 fl (6.2-12.0); Monocyte# 0.16 X10^3/uL; Monocyte% 6.5 % (0-10); Neutrophil # 2.14 X10^3/uL (2.7-7.7); Neutrophil % 87.4 % (47-70); Platelet Count 302 K/mm3 (150-450); RBC Distribution Width CV 22.5 % (11.6-14.6); RBC Distribution Width SD 65.6 fl (35.1-43.9); Red Blood Count 2.31 M/mm3 (4.6-6.2); White Blood Count 2.5 K/mm3 (4.4-11.0)
[2017-12-25 04:39] LABS: Prothrombin Time (Protime)PT. 13.5 SECONDS (11.7-14.9)
[2017-12-25 04:40] LABS: Partial Thromboplast Time 28.6 Seconds (24.1-36.2)
[2017-12-25 04:50] LABS: Differential Indicated SCAN CRITERIA MET; POSITIVE COUNT NO; POSITIVE DIFFERENTIAL YES; POSITIVE MORPHOLOGY YES
[2017-12-25 05:04] LABS: Anion Gap 9 (5-15); BUN 25 mg/dL (7-18); BUN/Creat Ratio 35.1 RATIO (10-20); Calcium,Total 8.6 mg/dL (8.5-10.1); Chloride 100 mmol/L (98-107); Creatinine, Serum 0.71 mg/dL (0.70-1.30); EST Glomerular Filtration Rate 119 mL/min (>60); Est Glom Filt Rate - Afr Amer 144 mL/min (>60); Estimated Creatinine Clearance 84.53 ml/min; Glucose 64 mg/dL (74-106); Potassium 4.2 mmol/L (3.5-5.1); Sodium Level 138 mmol/L (136-145)
[2017-12-25] MEDS: 0.9% Normal Saline 1,000 ML 75 ML IV (05:34)
[2017-12-25] MEDS: Levothyroxine 150 MCG Tablet GT (05:34)
[2017-12-25] MEDS: 0.9% NaCl Peripheral Flush Adult/Peds IV ×4 (05:37→23:30)
[2017-12-25 06:42] LABS: Anisocytosis 1+; Differential Comment SCAN; Hypochromasia 1+; Microcytosis 1+; Polychromasia 1+
--- NOTE | 2017-12-25 08:19 | PN_ITS ---
Subjective: Chief complaint: Follow-up after admission for A. fib/flutter with RVR. He developed acute on chronic anemia requiring blood transfusion. Patient seen and examined this morning. No acute events overnight. Denied chest pain or shortness of breath. Denied dizziness or lightheadedness he remained in sinus rhythm, vital signs are stable. - Physical Exam General: Alert, Oriented x3, Cooperative, No apparent distress HEENT: Atraumatic, PERRLA, EOMI, Normocephalic Oral: Moist Mucosa, No Gingival or Mucosal Lesions/ Ulcerations Neck: Supple, No JVD, Negative Carotid Bruits, Trachea Midline, Thyroid Normal Size and Texture Lungs: Clear to auscultation, No wheeze, No rales, Diminished, Rhonchi Cardiovascular: Regular rate, Regular Rhythm, Normal S1, Normal S2, PMI Normal Abdomen: Bowel Sounds Present, Soft, Non Tender, Non-Distended, No Hepato- splenomegaly, - - PEG tube in place. Extremities: No clubbing, No cyanosis, No edema Skin: No rashes, No breakdown Lymphatic: No Cervical, Supraclavicular, or Inguinal Adenopathy Neurological: Cranial nerves II-XII grossly intact, Neuro grossly intact Psych/Mental Status: Normal Affect, Appropriate, Alert and oriented to time, place, person, mood and affect Vital Signs Temp Pulse Resp BP Pulse Ox 98.6 F 76 16 115/60 92 12/25/17 05:34 12/25/17 06:56 12/25/17 05:34 12/25/17 05:34 12/25/17 07:50 Oxygen Flow Rate (L/min) 2 Oxygen Delivery Method Room Air Weight: 122 lb 2.177 oz Body Mass Index (BMI) 19.1 Intake and Output for Last 24 Hours 12/23/17 12/24/17 12/25/17 23:59 23:59 23:59 Intake Total 1341 / 1341 537 / 537 Output Total 450 / 450 350 / 350 Balance 891 / 891 187 / 187 Laboratory Tests Past 24 Hrs 12/24/17 12/24/17 12/24/17 14:10 14:10 16:35 WBC RBC Hgb Hct MCV MCH MCHC RDW RDW Differential Plt Count MPV Immature Gran % (Auto) Neut % (Auto) Lymph % (Auto) Power % (Auto) Eos % (Auto) Baso % (Auto) Absolute Neuts (auto) Absolute Lymphs (auto) Total Counted Differential Comment Polychromasia Hypochromasia Anisocytosis Microcytosis PT INR APTT Sodium Potassium Chloride Carbon Dioxide Anion Gap BUN Creatinine Estim Creat Clear Calc Est GFR (MDRD) Af Amer Est GFR (MDRD) Non-Af BUN/Creatinine Ratio Glucose Calcium Magnesium 2.0 Troponin I 0.069 H 0.060 H 12/25/17 12/25/17 12/25/17 04:15 04:15 04:15 WBC 2.5 L RBC 2.31 L Hgb 6.6 L Hct 21.0 L MCV 90.9 MCH 28.6 MCHC 31.4 L RDW 22.5 H RDW Differential 65.6 H Plt Count 302 MPV 8.2 Immature Gran % (Auto) 0.400 Neut % (Auto) 87.4 H Lymph % (Auto) 5.3 L Power % (Auto) 6.5 Eos % (Auto) 0.0 Baso % (Auto) 0.4 Absolute Neuts (auto) 2.1 Absolute Lymphs (auto) 0.13 L Total Counted Not Reportable Differential Comment SCAN Polychromasia 1+ Hypochromasia 1+ Anisocytosis 1+ Microcytosis 1+ PT 13.5 INR 1.0 APTT 28.6 Sodium 138 Potassium 4.2 Chloride 100 Carbon Dioxide 29.0 Anion Gap 9 BUN 25 H Creatinine 0.71 Estim Creat Clear Calc 84.53 Est GFR (MDRD) Af Amer 144 Est GFR (MDRD) Non-Af 119 BUN/Creatinine Ratio 35.1 H Glucose 64 L Calcium 8.6 Magnesium Troponin I Medical Necessity - Tobacco Use Smoking Status: Former smoker Assessment/Plan All Active Problems (Last Reviewed 12/24/17 @ 09:52 by Jania Vallejo) Atrial fibrillation and flutter (Acute) This is a 62 years old male patient was sent to emergency department from the radiation therapy department for elevated heart rate, found to have atrial flutter with RVR and is being admitted for treatment and evaluation. #1 Paroxysmal atrial fibrillation/flutter with RVR: Apparently, patient had a history of paroxysmal A. fib. He remained in sinus rhythm since admission after received 1 dose of IV Cardizem. Heart rate stable, other vital signs are stable. Repeat EKG from today revealed normal sinus rhythm, no acute ischemic changes. Troponin is borderline elevated and flat. He had 2D echocardiogram back in October, that revealed ejection fraction of 55%, RVSP of 31 and no significant valvular heart disease. His TSH was normal on October,. Serum potassium and magnesium were normal. His [id number] score is 1 based on his age, he is at low to moderate risk of stroke and he is a candidate for antiplatelets only or anticoagulation. He is supposed to go for stress test today according to cardiology recommendation but today's hemoglobin is 6.6 g/ dL. Plan to cancel the stress test, blood transfusion, stress test tomorrow. #2 acute on chronic anemia: Today's hemoglobin is 6.6 g/dL. No evidence of active bleeding. Could be due to hemodilution. Plan: Transfuse 2 units of packed RBCs, repeat H&H 2 hours after completing blood transfusion, repeat CBC tomorrow morning, will start iron supplement as well. His iron was low on November. #3 non-small cell lung cancer: Currently on chemotherapy and radiation. Last chemotherapy was last . He is supposed to go for radiation treatment again today. We will check with the staff as the patient can go to his radiation treatment this morning and come back. #4 recent history of MRSA infected/cellulitis of left Pleurx catheter site: Patient mentioned that he completed his antibiotics today morning. Incision site of the left Pleurx catheter is clean, dry, no erythema and no evidence of infection. #5 left pleural effusion: Status post removal of left Pleurx catheter, resolved. #6 chronic dysphagia: Status post PEG tube placement, continue with tube feeds, nutrition consult. 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 #8 DVT prophylaxis: Subcu Lovenox. This note was generated with [employer] dictation software. It may contain incorrect words, spelling, and punctuation that were not noted in checking the note before signing. Code Visit Inpatient E&M: 17877 [facility] L[facility]
--- NOTE | 2017-12-25 09:33 | PN.CARD_ITS ---
Subjectve: The patient remains without any obvious ongoing symptoms of chest discomfort, worsening shortness of breath or dyspnea, or palpitations. Objective: Vital Signs Temp Pulse Resp BP Pulse Ox 98.6 F 76 16 115/60 92 12/25/17 05:34 12/25/17 06:56 12/25/17 05:34 12/25/17 05:34 12/25/17 07:50 Oxygen Flow Rate (L/min) 2 Oxygen Delivery Method Room Air Weight: 122 lb 2.177 oz Body Mass Index (BMI) 19.1 Intake and Output for Last 24 Hours 12/23/17 12/24/17 12/25/17 23:59 23:59 23:59 Intake Total 1341 / 1341 537 / 537 Output Total 450 / 450 350 / 350 Balance 891 / 891 187 / 187 General: Awake, Alert, Oriented x 3, Cooperative, No Acute Distress Neck: No JVD Lungs: Diminished Left Base Cardiovascular: Regular Rhythm, Normal S1, Normal S2 Abdomen: Bowel Sounds Present, Soft, Non Tender Extremities: No edema 12/24/17 14:10: Magnesium 2.0 12/24/17 14:10: Troponin I 0.069 H 12/24/17 16:35: Troponin I 0.060 H 12/25/17 04:15: WBC 2.5 L, RBC 2.31 L, Hgb 6.6 L, Hct 21.0 L, MCV 90.9, MCH 28.6 , MCHC 31.4 L, RDW 22.5 H, RDW Differential 65.6 H, Plt Count 302, MPV 8.2, Immature Gran % (Auto) 0.400, Neut % (Auto) 87.4 H, Lymph % (Auto) 5.3 L, Fisher % (Auto) 6.5, Eos % (Auto) 0.0, Baso % (Auto) 0.4, Absolute Neuts (auto) 2.1, Total Counted Not Reportable 12/25/17 04:15: Sodium 138, Potassium 4.2, Chloride 100, Carbon Dioxide 29.0, Anion Gap 9, BUN 25 H, Creatinine 0.71, Est GFR (MDRD) Af Amer 144, Est GFR ( MDRD) Non-Af 119, BUN/Creatinine Ratio 35.1 H, Glucose 64 L, Calcium 8.6 12/25/17 04:15: PT 13.5, INR 1.0, APTT 28.6 Rhythm: Sinus rhythm Medical Necessity - Tobacco Use Smoking Status: Former smoker Assessment/Plan 1. Paroxysmal atrial fibrillation/flutter The patient has had a recurrence of his paroxysmal atrial dysrhythmia with atrial flutter. He appeared without obvious symptoms or hemodynamic compromise. He was treated with IV diltiazem and regain sinus rhythm. At the present time he is being monitored in sinus rhythm. He is being assessed based upon an indeterminate troponin I level which upon repeat has remained indeterminant. His case was reviewed with him. At the present time the etiology of the indeterminate troponin I level may be secondary to a type II event with supply demand mismatch secondary to the underlying atrial dysrhythmia with rapid ventricular response versus a primary acute cardiovascular event without other associated symptoms or objective findings. At the same time other potential noncardiovascular etiologies cannot necessarily be excluded. From a cardiac standpoint he is going to be monitored. He is going to initiate medical management with diltiazem therapy as he has responded to this with respect to his atrial dysrhythmia. He has not been on anticoagulant therapy secondary to his underlying lung carcinoma, anemia, and his need for previous invasive evaluation and care. This could change depending upon his future clinical course. A discussion was held with him as to further evaluation care of his indeterminate troponin I level for the possibility of underlying CAD either noninvasively or invasively. At the present time he is willing to undergo a noninvasive evaluation such as a pharmacologic stress nuclear imaging study. He states that he has not sure at this time, and would have to give consideration to, if he would require further evaluation with a diagnostic cardiac catheterization as to whether or not he would want to do that noting his other medical conditions. However, this evaluation is now on hold based upon his significant H&H drop. He is being evaluated by internal medicine. He should be considered for PRBC transfusion to increase his hemoglobin/hematocrit to assist with his oxygen carrying capacity. 2. 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 It appears he requires continued chemotherapy and radiation therapy. 3. Anemia He remains anemic. This may be anemia of chronic disease if he has no obvious deficiencies or obvious hemorrhagic issues. Again, based upon his H&H drop, he should be considered for PRBC transfusion. After his H&H is stabilized consideration can be given to further noninvasive cardiovascular evaluation as deemed appropriate. Comment: The patient's case has been discussed and reviewed with the patient.
--- NOTE | 2017-12-25 09:35 | CASEMGMT ---
Call to Radiology Oncology office re: radiation treatments. Jania nurse spoke with Dr. Ruiz who states pt needs to continue with radiation treatments while in the hospital. Jorge Avery nurse notified pt will go to radiation tx. Ramona BETANCOURTN RN ACM
[2017-12-25] MEDS: dilTIAZem 30 MG Tablet GT ×3 (11:13→23:23)
[2017-12-25] MEDS: Enoxaparin 40 MG/0.4 ML Syringe SC (11:13)
[2017-12-25] MEDS: Omeprazole 20 MG Capsule GT (11:16)
--- NOTE | 2017-12-25 11:37 | CASEMGMT ---
MARIO COYLE Readmission Note. Last admission: 12/07-12/13/17. Admission for infected L pleurx catheter site. DC: Home. Had information given for Palliative Care-declined. 12/24/17 Readmission. AFIB with RVR. Elevated heart rate after radiation treatment for NSCLC. HR 160's. Cardizem bolus, converted to SR. *H/H 6.11/06- to receive 3units PRBC. *MARIO COYLE called to Dr. Ruiz's office (radiology oncology) and radiation tx need to continue while in hospital. DC PLANNING: undetermined.
[2017-12-25] MEDS: oxyCODONE 5 MG Tablet GT ×2 (16:41→23:30)
[2017-12-25 21:54] LABS: Hematocrit 28.9 % (40-54); Hemoglobin 9.4 g/dl (13.0-16.5)
[2017-12-25] MEDS: Zolpidem Tartrate 5 MG Tablet GT (23:30)
[2017-12-26 03:00] VITALS: PULSE 68
[2017-12-26] MEDS: 0.9% Normal Saline 1,000 ML 75 ML IV (03:53)
[2017-12-26] MEDS: 0.9% NaCl Peripheral Flush Adult/Peds IV (04:57)
[2017-12-26 05:15] LABS: Absolute Lymphocyte Count 0.14 X10^3/ul (0.83-4.51); Absolute Neutrophil Count 2.6 X10^3/uL (2.0-7.7); Basophil# 0.01 X10^3/uL; Basophil% 0.3 % (0-1); Hematocrit 27.3 % (40-54); Hemoglobin 9.2 g/dl (13.0-16.5); Lymphocyte # 0.14 X10^3/ul (4.0); Lymphocyte % 4.6 % (19-41); Mean Corp Hgb Conc 33.7 g/gl (32-36); Mean Corpuscular Hgb 30.5 pg (27.0-32.0); Mean Corpuscular Volume 90.4 fL (80-94); Mean Platelet Vol. 8.4 fl (6.2-12.0); Monocyte# 0.29 X10^3/uL; Monocyte% 9.6 % (0-10); Neutrophil # 2.57 X10^3/uL (2.7-7.7); Neutrophil % 84.8 % (47-70); Platelet Count 381 K/mm3 (150-450); RBC Distribution Width CV 19.9 % (11.6-14.6); RBC Distribution Width SD 54.3 fl (35.1-43.9); Red Blood Count 3.02 M/mm3 (4.6-6.2)
[2017-12-26 05:16] LABS: Differential Indicated SCAN CRITERIA MET; POSITIVE COUNT NO; POSITIVE DIFFERENTIAL YES; POSITIVE MORPHOLOGY NO
[2017-12-26 05:21] LABS: Partial Thromboplast Time 30.3 Seconds (24.1-36.2)
[2017-12-26 05:28] LABS: Prothrombin Time (Protime)PT. 13.1 SECONDS (11.7-14.9)
[2017-12-26 05:29] LABS: Anion Gap 9 (5-15); BUN 22 mg/dL (7-18); BUN/Creat Ratio 30.6 RATIO (10-20); Calcium,Total 8.6 mg/dL (8.5-10.1); Chloride 99 mmol/L (98-107); Creatinine, Serum 0.72 mg/dL (0.70-1.30); EST Glomerular Filtration Rate 118 mL/min (>60); Est Glom Filt Rate - Afr Amer 143 mL/min (>60); Estimated Creatinine Clearance 83.36 ml/min; Glucose 81 mg/dL (74-106); Potassium 4.2 mmol/L (3.5-5.1); Sodium Level 137 mmol/L (136-145)
[2017-12-26 05:34] LABS: Differential Comment SCANNED
[2017-12-26] MEDS: Levothyroxine 150 MCG Tablet GT (05:35)
[2017-12-26 05:40] VITALS: BP 111/60; PULSE 75; RESP 16; TEMP 36.7; O2SAT 95
[2017-12-26 07:05] VITALS: PULSE 68
[2017-12-26 07:28] VITALS: O2SAT 95
--- NOTE | 2017-12-26 08:18 | STEWCON_ITS ---
Reason For Study: AFIB Stress Results Protocol: Nitish Protocol Maximum Predicted HR: 158 bpm Target HR: 134 bpm% Max imum Predicted HR: 107 % DurationHeart Rate Stage (mm:ss) (bpm) BPCom ment Baseline 73 110/70 Stage 1 3:00 11 5 148/60 Stage 2 0:23 16 9 / SARAI B, Increased fatigue, SOB Recovery 77 130/62 Stress Duration: 3:23 mm:ss Maximum Stress HR: 169 bpm Baseline Echocardiogram Findings The estimated ejection fraction is 65 %. Stress Echo Wall motion Data Resting WMIntermediate WMStress WM Resting Wall Motion Wall Motion Stress No regional wall motion No regional wall motion abnormalities noted. abnormalities noted. EKG Data The baseline ECG demonstrates normal sinus rhythm with at rate of _ beats per minute. No clinical angina was noted. During dobutamine infusion, there were no ST or T wave changes noted to suggest ischemia. Interpretation Summary The estimated ejection fraction is 65 %. Normal, adequate, treadmill echocardiogram. Negative for ischemia by EKG and echocardiographic anterior. No anginal symptoms noted. Transient atrial fibrillation at peak exercise which reverted back to normal sinus rhythm. Rare PVC noted. Appropriate blood pressure response to exercise. Below average exercise capacity for age. Test terminated due to dyspnea and attainment of target heart rate. Final LVEF of 75%. No complications. Ordering Physician: Nicolas Sherwood Referring Physician: Vish Ruiz Performed By: Laurie Johnson, NIKA, RVT
[2017-12-26 10:05] VITALS: BP 128/59; PULSE 80; RESP 16; TEMP 36.8; O2SAT 97
[2017-12-26] MEDS: Omeprazole 20 MG Capsule GT (10:29)
--- NOTE | 2017-12-26 10:41 | PCM.DC ---
You will use the following diet at home:: Other - Continue tube feeds as usual. Discharge Activity: Return to Normal Activity Weight Bearing Status: Weight bearing as tolerated Call your doctor if you observe: Fever of 101 or Higher, Shortness of breath, Dizziness, Fainting spells, Chest pain, Increased palpitations (irregular heartbeat), Uncontrolled pain Allergies/Adverse Reactions: Allergies Iodinated Contrast- Oral and IV Dye [CT] Allergy (Mild, Verified 12/24/17 10:54) Rash Medications to take at Discharge Dexamethasone [Decadron] 1 tablet PO DAILY@0800 11/10/17 Levothyroxine [Synthroid] 1 tablet PO DAILY 11/10/17 Ondansetron [Zofran Odt] 4 mg PO Q8H PRN PRN #30 tab 11/17/17 Polyethylene Glycol 3350 [Miralax] 17 gm PO DAILY #30 packet 11/17/17 Magic Mouth Wash 15 ml PO Q6H PRN PRN #240 ml 11/27/17 Omeprazole [Prilosec] 20 mg PO DAILY #30 cap 12/03/17 Albuterol IH (ProAir) [Proair Hfa] 2 puff INHALATION Q6H PRN #1 inhaler 12/18/17 Oxycodone HCl/Acetaminophen [Percocet 5-325] 1 tablet PO Q6H PRN #90 tablet 12/18/17 Lactose-Reduced Food/Fiber [Isosource 1.5 Magno Tube Feed Lq] 750 ml GT TID 12/25/17 Aspirin 81 mg GT DAILY #90 tab.chew 12/26/17 Diltiazem CD [Cardizem CD] 120 mg GT DAILY #90 cap 12/26/17 Ferrous Sulfate 325 mg GT BIDCM #90 tab 12/26/17 The following prescriptions were given: Aspirin 81 mg GT DAILY #90 tab.chew Diltiazem CD [Cardizem CD] 120 mg GT DAILY #90 cap Ferrous Sulfate 325 mg GT BIDCM #90 tab Primary Care Physician: Allison Sarmiento NP-C [Primary Care Provider] - Please follow up with your Primary Care Physician in: 1 week. Test Results: Test results from this visit will be discussed in further detail at your follow-up appointment, if applicable. Please Follow Up With: Kayode Arreaga MD When: 2 weeks. please call his office.
[2017-12-26] MEDS: Ferrous Sulfate 300 MG/5 ML UDC 325 MG GT (11:04)
[2017-12-26] MEDS: dilTIAZem 30 MG Tablet GT (11:05)
[2017-12-26 11:13] VITALS: PULSE 76
--- NOTE | 2017-12-26 12:54 | PCM.DC.SUM ---
Discharge Date and Diagnosis Date of Admission: 12/24/17 Date of Discharge: 12/26/17 - Primary Discharge Diagnosis #1 paroxysmal atrial fibrillation/flutter with RVR. #2 acute on chronic anemia required blood transfusion. - Secondary Discharge Diagnosis Chronic Problems (Last Reviewed 12/24/17 @ 09:52 by Jania Vallejo) PEG (percutaneous endoscopic gastrostomy) status (Chronic) Tobacco dependence in remission (Chronic) Pulmonary nodule, left (Chronic) History of laryngeal cancer (Chronic) Non-small cell carcinoma of left lung, stage 3 (Chronic) Dysphagia (Chronic) Chronic anemia (Chronic) Pleural effusion (Chronic) Chemotherapy management, encounter for (Chronic) Hospital Course and Treatment Imaging Results: 12/26/17 08:18 Stress Test Echo w/o Contrast [ECHO] Routine Clinical Impression(s) from Imaging Studies Chest X-Ray 12/24/17 09:51 IMPRESSION: Continued pleural thickening or effusion at the left lung base. Removal of the previously seen left pleural tube. Electronically Signed: Steve Marquez DO at 10:47 EDT Tel , Service support , Dr. Arreaga, cardiology. Operations: None Procedures: EKG, - - Stress echocardiogram. Summary of Care Provided: Patient seen and examined on the day of discharge and appeared to be stable to be discharged home. He denies any complaints. He remained in sinus rhythm and his vital signs were stable. - Physical Exam General: Alert, Oriented x3, Cooperative, No apparent distress. HEENT: Atraumatic, PERRLA, EOMI. Neck: Supple, No JVD, Negative Carotid Bruits, Trachea Midline, Thyroid Normal. Lungs: Decreased breath sounds at the bases, more on the left base, rhonchi, No wheeze, No rales. Cardiovascular: Regular rate, Regular Rhythm, Normal S1, Normal S2, PMI Normal. Abdomen: Bowel Sounds Present, Soft, Non Tender, Non-Distended, No Hepato-splenomegaly. Extremities: No clubbing, No cyanosis, No edema Skin: No rashes, No breakdown Neurological: Neuro grossly intact Vital Signs are stable. Hospital course: The patient is a 62 year old M was referred to the emergency department from the radiation therapy department for elevated heart rate and he was found to have atrial flutter with RVR. This patient has a history of episode of paroxysmal atrial fibrillation in the past. During this admission, he was found to be in atrial flutter and his heart rate was in the 160s. He received 1 dose of IV Cardizem bolus in the ER and he converted back to sinus rhythm remained in sinus rhythm throughout admission. Also, started on Cardizem through the GT tube and he remained in sinus rhythm. His troponin was borderline elevated and flat which is attributed to the episode of the atrial flutter with RVR. She denies any chest pain throughout admission. Cardiology consulted and patient underwent stress echocardiogram that was normal, adequate treadmill echocardiogram and was negative for ischemia by EKG and echocardiographic criteria, ejection fraction was 75%. This patient had a history of chronic anemia secondary to cancer and chemotherapy but during this admission, hemoglobin came down to 6.6 g/dL which is attributed to chemotherapy. There was no evidence of active bleeding. Patient received 2 units of packed RBCs and his hemoglobin went up to 9.4 g/dL. Again, he remained in sinus rhythm and his blood pressure remained stable. We did not start him on anticoagulation because of his history of lung cancer, left hemothorax status post removal of left Pleurx catheter and acute on chronic anemia and he is at high risk for bleeding. She discharged home in a stable medical condition, discharged on Cardizem CD 120 mg p.o. daily for rate control, discharged on aspirin 81 mg p.o. daily, not a candidate for anticoagulation as mentioned above, discharged on iron supplement, continued on his other chronic home medication without any changes, plan to follow-up with cardiology in 2 weeks and recommended follow-up with PCP in 1 week. Discharge Activity: Return to Normal Activity Weight Bearing Status: Weight bearing as tolerated Call your doctor if you observe: Fever of 101 or Higher, Shortness of breath, Dizziness, Fainting spells, Chest pain, Increased palpitations (irregular heartbeat), Uncontrolled pain Home Medications: Medications to take at Discharge Dexamethasone [Decadron] 1 tablet PO DAILY@0800 11/10/17 Levothyroxine [Synthroid] 1 tablet PO DAILY 11/10/17 Ondansetron [Zofran Odt] 4 mg PO Q8H PRN PRN #30 tab 11/17/17 Polyethylene Glycol 3350 [Miralax] 17 gm PO DAILY #30 packet 07/02/18 Magic Mouth Wash 15 ml PO Q6H PRN PRN #240 ml 11/27/17 Omeprazole [Prilosec] 20 mg PO DAILY #30 cap 12/03/17 Albuterol IH (ProAir) [Proair Hfa] 2 puff INHALATION Q6H PRN #1 inhaler 12/18/17 Oxycodone HCl/Acetaminophen [Percocet 5-325] 1 tablet PO Q6H PRN #90 tablet 12/18/17 Lactose-Reduced Food/Fiber [Isosource 1.5 Magno Tube Feed Lq] 750 ml GT TID 12/25/17 Aspirin 81 mg GT DAILY #90 tab.chew 12/26/17 Diltiazem CD [Cardizem CD] 120 mg GT DAILY #90 cap 12/26/17 Ferrous Sulfate 325 mg GT BIDCM #90 tab 12/26/17 Following Prescrptions Were Given to Patient: Aspirin 81 mg GT DAILY #90 tab.chew Diltiazem CD [Cardizem CD] 120 mg GT DAILY #90 cap Ferrous Sulfate 325 mg GT BIDCM #90 tab Primary Care Physician: Allison Sarmiento NP-C [Primary Care Provider] - Please follow up with your Primary Care Physician in: 1 week. Please Follow Up With: Kayode Arreaga MD When: 2 weeks. please call his office. Please Follow Up With: Allison Sarmiento NP-C Disposition: Home Minutes spent on discharge:: 32 Patient Condition:: Stable Medical Necessity - Tobacco Use Smoking Status: Former smoker Meaningful Use Info Meaningful Use Diagnoses (Choose all that apply): None applicable Code Visit Inpatient E&M: 03963 [facility]
--- NOTE | 2017-12-26 13:02 | DS.PCM_ITS ---
Discharge Date and Diagnosis Date of Admission: 12/24/17 Date of Discharge: 12/26/17 - Primary Discharge Diagnosis #1 paroxysmal atrial fibrillation/flutter with RVR. #2 acute on chronic anemia required blood transfusion. - Secondary Discharge Diagnosis Chronic Problems (Last Reviewed 12/24/17 @ 09:52 by Jania Vallejo) PEG (percutaneous endoscopic gastrostomy) status (Chronic) Tobacco dependence in remission (Chronic) Pulmonary nodule, left (Chronic) History of laryngeal cancer (Chronic) Non-small cell carcinoma of left lung, stage 3 (Chronic) Dysphagia (Chronic) Chronic anemia (Chronic) Pleural effusion (Chronic) Chemotherapy management, encounter for (Chronic) Hospital Course and Treatment Imaging Results: 12/26/17 08:18 Stress Test Echo w/o Contrast [ECHO] Routine Clinical Impression(s) from Imaging Studies Chest X-Ray 12/24/17 09:51 IMPRESSION: Continued pleural thickening or effusion at the left lung base. Removal of the previously seen left pleural tube. Electronically Signed: Steve Marquez DO at 10:47 EDT Tel , Service support , Dr. Arreaga, cardiology. Operations: None Procedures: EKG, - - Stress echocardiogram. Summary of Care Provided: Patient seen and examined on the day of discharge and appeared to be stable to be discharged home. He denies any complaints. He remained in sinus rhythm and his vital signs were stable. - Physical Exam General: Alert, Oriented x3, Cooperative, No apparent distress. HEENT: Atraumatic, PERRLA, EOMI. Neck: Supple, No JVD, Negative Carotid Bruits, Trachea Midline, Thyroid Normal. Lungs: Decreased breath sounds at the bases, more on the left base, rhonchi, No wheeze, No rales. Cardiovascular: Regular rate, Regular Rhythm, Normal S1, Normal S2, PMI Normal. Abdomen: Bowel Sounds Present, Soft, Non Tender, Non-Distended, No Hepato- splenomegaly. Extremities: No clubbing, No cyanosis, No edema Skin: No rashes, No breakdown Neurological: Neuro grossly intact Vital Signs are stable. Hospital course: The patient is a 62 year old M was referred to the emergency department from the radiation therapy department for elevated heart rate and he was found to have atrial flutter with RVR. This patient has a history of episode of paroxysmal atrial fibrillation in the past. During this admission, he was found to be in atrial flutter and his heart rate was in the 160s. He received 1 dose of IV Cardizem bolus in the ER and he converted back to sinus rhythm remained in sinus rhythm throughout admission. Also, started on Cardizem through the GT tube and he remained in sinus rhythm. His troponin was borderline elevated and flat which is attributed to the episode of the atrial flutter with RVR. She denies any chest pain throughout admission. Cardiology consulted and patient underwent stress echocardiogram that was normal, adequate treadmill echocardiogram and was negative for ischemia by EKG and echocardiographic criteria, ejection fraction was 75%. This patient had a history of chronic anemia secondary to cancer and chemotherapy but during this admission, hemoglobin came down to 6.6 g/dL which is attributed to chemotherapy. There was no evidence of active bleeding. Patient received 2 units of packed RBCs and his hemoglobin went up to 9.4 g/dL. Again, he remained in sinus rhythm and his blood pressure remained stable. We did not start him on anticoagulation because of his history of lung cancer, left hemothorax status post removal of left Pleurx catheter and acute on chronic anemia and he is at high risk for bleeding. She discharged home in a stable medical condition, discharged on Cardizem CD 120 mg p.o. daily for rate control , discharged on aspirin 81 mg p.o. daily, not a candidate for anticoagulation as mentioned above, discharged on iron supplement, continued on his other chronic home medication without any changes, plan to follow-up with cardiology in 2 weeks and recommended follow-up with PCP in 1 week. Discharge Activity: Return to Normal Activity Weight Bearing Status: Weight bearing as tolerated Call your doctor if you observe: Fever of 101 or Higher, Shortness of breath, Dizziness, Fainting spells, Chest pain, Increased palpitations (irregular heartbeat), Uncontrolled pain Home Medications: Medications to take at Discharge Dexamethasone [Decadron] 1 tablet PO DAILY@0800 11/10/17 Levothyroxine [Synthroid] 1 tablet PO DAILY 11/10/17 Ondansetron [Zofran Odt] 4 mg PO Q8H PRN PRN #30 tab 11/17/17 Polyethylene Glycol 3350 [Miralax] 17 gm PO DAILY #30 packet 07/02/18 Magic Mouth Wash 15 ml PO Q6H PRN PRN #240 ml 11/27/17 Omeprazole [Prilosec] 20 mg PO DAILY #30 cap 12/03/17 Albuterol IH (ProAir) [Proair Hfa] 2 puff INHALATION Q6H PRN #1 inhaler Oxycodone HCl/Acetaminophen [Percocet 5-325] 1 tablet PO Q6H PRN #90 tablet 07/06 Lactose-Reduced Food/Fiber [Isosource 1.5 Magno Tube Feed Lq] 750 ml GT TID Aspirin 81 mg GT DAILY #90 tab.chew 12/26/17 Diltiazem CD [Cardizem CD] 120 mg GT DAILY #90 cap 12/26/17 Ferrous Sulfate 325 mg GT BIDCM #90 tab 12/26/17 Following Prescrptions Were Given to Patient: Aspirin 81 mg GT DAILY #90 tab.chew Diltiazem CD [Cardizem CD] 120 mg GT DAILY #90 cap Ferrous Sulfate 325 mg GT BIDCM #90 tab Primary Care Physician: Allison Sarmiento NP-C [Primary Care Provider] - Please follow up with your Primary Care Physician in: 1 week. Please Follow Up With: Kayode Arreaga MD When: 2 weeks. please call his office. Please Follow Up With: Allison Sarmiento NP-C Disposition: Home Minutes spent on discharge:: 32 Patient Condition:: Stable Medical Necessity - Tobacco Use Smoking Status: Former smoker Meaningful Use Info Meaningful Use Diagnoses (Choose all that apply): None applicable Code Visit Inpatient E&M: 61137 Disch Hosp
--- NOTE | 2017-12-29 13:17 | CASEMGMT ---
MARIO COYLE DC Phone Call: Message left with call back information if questions. DC DATE:12/26/17 LACE/STRATA:29/08
== END 2017-12-26 12:06 | disposition home or self-care (01) | DRG 309 ==
LOC: ED 10:50 → PCU 11:49
PROVIDERS: Internal Medicine Cardiovascular Disease; Admitting Provider Hospitalist; Emergency Provider Emergency Medicine; Family Provider Nurse Practitioner Family; PCP Nurse Practitioner Family; Visit Provider Hospitalist
DX: I48.92 Unspecified atrial flutter (principal); C34.92 Malignant neoplasm of unspecified part of left bronchus or lung; J90 Pleural effusion, not elsewhere classified; Z79.899 Other long term (current) drug therapy; Z92.3 Personal history of irradiation; D63.0 Anemia in neoplastic disease; Z86.14 Personal history of Methicillin resistant Staphylococcus aureus infection; Z85.21 Personal history of malignant neoplasm of larynx; Z93.1 Gastrostomy status; R13.10 Dysphagia, unspecified; I48.0 Paroxysmal atrial fibrillation; D64.81 Anemia due to antineoplastic chemotherapy; T45.1X5A Adverse effect of antineoplastic and immunosuppressive drugs, initial encounter; Z87.891 Personal history of nicotine dependence
CPT/HCPCS: 36591; 71045; 77386; 80048; 83735; 84484; 85014; 85018; 85025; 85610; 85730; 86850; 86900; 86920; 86922; 92526; 93005; 93017; 93350; 97110; 97161; 97166; 97530; 97802; 99282; J1756; J7030; P9016; A4216; J2785

== ENCOUNTER 2018-01-12 09:36 | Inpatient (IN) | payer MEDICARE, OTHER, SELFPAY ==
[2017-11-06 15:18] VITALS: BMI 20.7
[2018-01-12] VITALS (7 sets, daily range): BP systolic 114–124; BP diastolic 55–84; PULSE 83–98; RESP 15–18; TEMP 36.6–37.3; O2SAT 94–96; BMI 19.7
[2018-01-12 11:03] LABS: Absolute Lymphocyte Count 0.08 X10^3/ul (0.83-4.51); Absolute Neutrophil Count 0.2 X10^3/uL (2.0-7.7); Basophil# 0.01 X10^3/uL; Basophil% 2.9 % (0-1); Eosinophil# 0.01 X10^3/uL; Eosinophils% 2.9 % (0-5); Hematocrit 22.2 % (40-54); Hemoglobin 7.3 g/dl (13.0-16.5); Lymphocyte # 0.08 X10^3/ul (4.0); Lymphocyte % 22.9 % (19-41); Mean Corp Hgb Conc 32.9 g/gl (32-36); Mean Corpuscular Hgb 30.7 pg (27.0-32.0); Mean Corpuscular Volume 93.3 fL (80-94); Mean Platelet Vol. 9.9 fl (6.2-12.0); Monocyte# 0.07 X10^3/uL; Neutrophil # 0.18 X10^3/uL (2.7-7.7); Neutrophil % 51.3 % (47-70); Platelet Count 38 K/mm3 (150-450); RBC Distribution Width CV 23.7 % (11.6-14.6); RBC Distribution Width SD 76.9 fl (35.1-43.9); Red Blood Count 2.38 M/mm3 (4.6-6.2); White Blood Count 0.4 K/mm3 (4.4-11.0)
[2018-01-12 11:05] LABS: Differential Indicated SCAN CRITERIA MET; POSITIVE COUNT YES; POSITIVE DIFFERENTIAL YES; POSITIVE MORPHOLOGY YES
--- NOTE | 2018-01-12 11:08 | ED.RN ---
AWARE OF LABS
[2018-01-12 11:09] LABS: Anion Gap 4 (5-15); BUN 23 mg/dL (7-18); BUN/Creat Ratio 24.1 RATIO (10-20); Calcium,Total 8.8 mg/dL (8.5-10.1); Chloride 96 mmol/L (98-107); Creatinine, Serum 0.95 mg/dL (0.70-1.30); EST Glomerular Filtration Rate 85 mL/min (>60); Est Glom Filt Rate - Afr Amer 103 mL/min (>60); Estimated Creatinine Clearance 65.17 ml/min; Glucose 123 mg/dL (74-106); Potassium 4.2 mmol/L (3.5-5.1); Sodium Level 133 mmol/L (136-145)
[2018-01-12 11:21] LABS: Anisocytosis 2+; Hypochromasia 3+; Platelet Estimate MKD DEC (ADEQ); Platelet Morphology LARGE; Polychromasia 1+
[2018-01-12] MEDS: Ondansetron 4 MG/2 ML Vial IV (12:08)
[2018-01-12] MEDS: Morphine 4 MG/ML Syringe IV (12:09)
[2018-01-12] MEDS: predniSONE 20 MG Tablet 60 MG PO (12:12)
[2018-01-12] MEDS: DiphenhydrAMINE 50 MG/ML Syringe 25 MG IV (12:12)
--- NOTE | 2018-01-12 14:17 | ED.VISSUMM ---
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 He states his PEG is working appropriately. He reports night sweats. He has had night sweats since diagnosis of his cancer. He does report approximately 7 pound weight loss over the past year. He does report dyspnea on exertion. Denies cough sputum production hemoptysis pleuritic chest pain. Denies leg pain, swelling discoloration. Physical Examination: Patient's vital signs were noted. He is not febrile nor is he hypoxic. HEENT exam is remarkable for pale conjunctival. Mucosa is moist. Lungs reveal no wheeze, rales or rhonchi. Heart is regular without murmur, gallop or rub. Patient has tenderness in the left upper quadrant and right upper quadrant to deep palpation only. There is no guarding or rebound tenderness. PEG is in place with no discoloration of the skin. Bowel sounds are present diminished. He is tympanitic to percussion. There is no inguinal lymphadenopathy. There is no asymmetry, swelling, discoloration, leg vein distention, palpable cords or tenderness along the distribution of the deep venous system. Neuro exam is nonfocal Test Results: Abdominal series reveals no ossific gas pattern with increased fecal matter. White count is 0.4 thousand with an absolute neutrophil count of approximately 220. H&H 7.5 and 22.2. Because he is neutropenic with abdominal pain a CT of the abdomen and pelvis was obtained with p.o. and IV contrast. CT reveals an effusion on the left and an infiltrate. The effusion was noted on x-ray but not the infiltrate. Lactate and blood cultures were obtained and he was treated with Rocephin and azithromycin for community acquired pneumonia since he was not admitted recently. And since he has a port he received 50 mg/kg of vancomycin. Emergency Department Course and Treatment: With patient being neutropenic abdominal pain abdominal CT was obtained since there was no explanation for his pain on the abdominal series. He does have evidence of a pleural effusion. This would not explain his abdominal pain. Treatment Plan: Blood cultures, lactate and antibiotics Disposition: Admit MedSurg reverse isolation Impression: 1. Neutropenic patient 2. Community-acquired pneumonia 3. Peripneumonic effusion 4. Metastatic head and neck cancer This note was generated with [employer] dictation software. It may contain incorrect words, spelling, and punctuation that were not noted in review of the chart prior to signing ED Disposition - Plan for ED Patient: Chief Complaint: Abd Pain Referrals: Allison Sarmiento, DRIER ATTENDANT-C [Primary Care Provider] -
--- NOTE | 2018-01-12 14:26 | PCM.HP.STD ---
Problem List (1) Abdominal pain Status: Acute History of Present Illness Date of Admission: 01/12/18 Chief Complaint: upper abdominal pain The patient is a 62 year old M with a history of laryngeal cancer, non-small cell carcinoma of the left lung, A. fib and hypothyroidism. He was admitted by the ED on 01/12/2018 after he presented with a complaint of upper abdominal pain of a couple of days duration. Pain was sharp, nonradiating, with no aggravating or relieving factors. He denied any fever or chills, any cough or chest pain, any shortness of breath, any diarrhea vomiting. He had his last session of chemotherapy today and decided coming to the ED to be checked out for the abdominal pain. As part of the workup, CAT scan was done which picked up right lower lobe infiltrate. He was therefore admitted to be managed for pneumonia. Vitals done in the ED showed blood pressure of 114/78, temperature of 98.5 Fahrenheit, pulse rate of 94 and respiratory rate of 15 and he was saturating at 94% on room air. Labs were significant for sodium of 133, bicarb of 33, WBC of 0.4, hemoglobin of 7.3 and platelets of 38. He was started on IV ceftriaxone and IV azithromycin. [] Past Medical History Past Medical History (Chronic Problems): Chronic Problems (Last Updated 01/12/18 @ 16:49 by Serina Hollingsworth MD) PEG (percutaneous endoscopic gastrostomy) status (Chronic) Tobacco dependence in remission (Chronic) Pulmonary nodule, left (Chronic) History of laryngeal cancer (Chronic) Non-small cell carcinoma of left lung, stage 3 (Chronic) Dysphagia (Chronic) Chronic anemia (Chronic) Atrial fibrillation and flutter (Chronic) Pleural effusion (Chronic) Chemotherapy management, encounter for (Chronic) Medical History: Medical History (Last Updated 01/12/18 @ 16:49 by Serina Hollingsworth MD) Pain (Acute) R52 PEG (percutaneous endoscopic gastrostomy) status (Chronic) Z93.1 Tobacco dependence in remission (Chronic) F17.201 Pulmonary nodule, left (Chronic) R91.1 History of laryngeal cancer (Chronic) Z85.21 Non-small cell carcinoma of left lung, stage 3 (Chronic) C34.92 Dysphagia (Chronic) R13.10 Chronic anemia (Chronic) D64.9 Atrial fibrillation and flutter (Chronic) I48.91, I48.92 Pleural effusion (Chronic) J90 Chemotherapy management, encounter for (Chronic) Z51.11 Anemia D64.9 Chicken pox B01.9 Dysphagia R13.10 Hypernatremia E87.0 Hyponatremia E87.1 Hypothyroidism E03.9 Laryngeal cancer C32.9 Lymphadenitis I88.9 Measles B05.9 Mumps B26.9 Allergies Iodinated Contrast- Oral and IV Dye [CT] Allergy (Mild, Verified 01/09/18 10:57) Rash Home Medications: Ambulatory Orders Medication Instructions Recorded Albuterol IH (ProAir) [Proair Hfa] 2 puff INHALATION Q6H PRN #1 12/18/17 inhaler Oxycodone HCl/Acetaminophen 1 tab PO Q6H PRN #90 tab 12/18/17 [Percocet 5-325] Ferrous Sulfate 325 mg GT BIDCM #90 tab 12/26/17 levothyroxine 150 mcg tablet 150 mcg PO DAILY tab 12/29/17 omeprazole 20 mg capsule,delayed 20 mg PO DAILY PRN cap 01/09/18 release Clonazepam [Clonazepam] 0.5 mg PO DAILY 01/12/18 Diltiazem HCl 60 mg PO BID 01/12/18 Polyethylene Glycol 3350 [Miralax] 17 gm GT DAILY PRN PRN 01/12/18 Surgical History: Surgical History (Last Updated 01/09/18 @ 10:58 by Edna Mc) Status post insertion of percutaneous endoscopic gastrostomy (PEG) tube Z93.1 port placement History of hernia repair Z98.890, Z87.19 History of thoracentesis Z98.890 LEFT WRIST SURGERY Surgical History: herniorrhaphy, - - PEG tube placement. Psychiatric History: Anxiety Smoking Status: Former smoker - *Family History Paternal Family History: Family History (Last Reviewed 01/08/18 @ 09:29 by Carlota Miguel) Father Heart disease History Items: Heart Disease - Maternal Family History: Family History (Last Reviewed 01/08/18 @ 09:29 by Carlota Miguel) Father Heart disease History Items: No pertinent history Review of Systems Constitutional: Denies: Chills, Fever, Malaise, Weight Change HEENT: Denies: Head Aches, Sinus Congestion, Sinus Drainage Cardiovascular: Denies: Chest Pain, Chest Pressure, Heaviness, Palpitations Respiratory: Reports: Cough, Shortness of breath upon exertion, Sputum production. Denies: Shortness of Breath, Shortness of breath at rest Gastrointestinal: Reports: Abdominal Pain. Denies: Constipation, Diarrhea, Dyspepsia, Nausea, Vomiting Genitourinary: Denies: Dysuria Musculoskeletal: Denies: Joint Pain, Joint Tenderness Skin: Denies: Dryness, Rash, Wounds Neurological: Denies: Numbness, Tingling, Focal weakness Psychiatric: Denies: Anxiety, Depression, Homicidal Ideations, Suicidal Ideations Hematologic/ Lymphatic: Denies: Easy Bruising, Easy Bleeding VTE Information - Inpt Only VTE Present on Admission: No VTE Mechan Device Prophylaxis: SCD's VTE Pharm Prophylaxis ordered?: No Reason prophylaxis not ordered:: Medical Contraindication - thrombocytopenia Patient Problems: Active and Suspected Problems (Last Updated 01/12/18 @ 16:49 by Serina Hollingsworth MD) Constipation (Acute) Pancytopenia (Acute) Abdominal pain (Acute) Pain (Acute) - Physical Exam General: Alert, Oriented x3, Cooperative, No apparent distress HEENT: Atraumatic, PERRLA, EOMI, - - nontender, firm fullness over right side of neck Oral: Moist Mucosa Neck: Supple, No JVD, Negative Carotid Bruits Lungs: - - decreased breath sounds bibasally, with no crackles or wheezing. Cardiovascular: Regular rate, Regular Rhythm, Normal S1, Normal S2, No murmurs Abdomen: Bowel Sounds Present, Soft, Non Tender, Non-Distended, No Hepato-splenomegaly, - - PEG tube. Extremities: No clubbing, No cyanosis, No edema, Capillary Refill Less than 3 Seconds Skin: No rashes, No breakdown Musculoskeletal: No Tenderness to Palpation of Joints or Extremities Lymphatic: No Cervical, Supraclavicular, or Inguinal Adenopathy Neurological: Cranial nerves II-XII grossly intact, Motor Exam 5/5 strength throughout Psych/Mental Status: Normal Affect, Appropriate, Alert and oriented to time, place, person, mood and affect Comment: Left chest mediport Vital Signs Temp Pulse Resp BP Pulse Ox 98.5 F 87 16 124/84 H 96 01/12/18 09:38 01/12/18 12:23 01/12/18 12:23 01/12/18 12:23 01/12/18 12:23 Oxygen Delivery Method Room Air Weight: 126 lb Body Mass Index (BMI) 19.7 Laboratory Tests Past 24 Hrs 01/12/18 01/12/18 10:50 10:50 WBC 0.4 L* RBC 2.38 L Hgb 7.3 L Hct 22.2 L MCV 93.3 MCH 30.7 MCHC 32.9 RDW 23.7 H RDW Differential 76.9 H Plt Count 38 L* MPV 9.9 Immature Gran % (Auto) 0.000 Neut % (Auto) 51.3 Lymph % (Auto) 22.9 Towner % (Auto) 20.0 H Eos % (Auto) 2.9 Baso % (Auto) 2.9 H Absolute Neuts (auto) 0.2 L Absolute Lymphs (auto) 0.08 L Total Counted Not Reportable Diff Path Review May foll Platelet Estimate MKD DEC Plt Morphology Comment LARGE Polychromasia 1+ Hypochromasia 3+ Anisocytosis 2+ Sodium 133 L Potassium 4.2 Chloride 96 L Carbon Dioxide 33.0 H Anion Gap 4 L BUN 23 H Creatinine 0.95 Estim Creat Clear Calc 65.17 Est GFR (MDRD) Af Amer 103 Est GFR (MDRD) Non-Af 85 BUN/Creatinine Ratio 24.1 H Glucose 123 H Calcium 8.8 Assessment/Plan All Active Problems (Last Updated 01/12/18 @ 16:49 by Serina Hollingsworth MD) Constipation (Acute) Pancytopenia (Acute) Abdominal pain (Acute) Pain (Acute) 60-year-old male with a history of laryngeal cancer non-small cell lung cancer presenting with upper abdominal pain of [address] picked up right lower lobe consolidation. 1. ? Health associated pneumonia denies any fever, chills or cough. ONly had right upper quadrant and left upper quadrant pain of a few days' duration SIRS criteria 1/4 (for leucopenia) CT abdomen/pelvis showed small left pleural effusion and consolidation in left lower lobe will admit to PCU with telemetry blood cultures, urine for strep and legionella antigens and urine cultures received IV ceftriaxone and IV azithromycin. will give Granix for neutropenia patient has no symptoms whatsoever pointing towards a pneumonia. Review of previous CT scans showed a left lower lobe mass which was diagnosed to be the NSCLC. CT chest with contrast (12/03) showed a significant consolidation and effusin of hte inferior polse of the left lower lobe. I think this is the same mass that was picked up on the abdominal CT scan. since this consolidation was diagnosed per CT abdomen/pelvis, will get a CT chest to further delineate it, to be sure it is not the lung mass. will hold off on antibiotics for now and await culture results 2. Pancytopenia wbc is 0.4, Hb is 7.4, and platelets-38 will give SC granix 300mcg daily will consult oncology will hold off on platelet transfusion for now 3. Slow transit constipation likely due to opioid use abdominal series showed large amounts of stool on opioids for pain from cancer likely cause of abdominal pain will start oral laxatives; no enemas due to pancytopenia 4. Chronic hyponatremia Na is 133 will monitor 5. Laryngeal cancer and nonsmall cell lung cancer had last radiation therapy today last chemo session 2 weeks ago was deferred o/a of leucopenia due to have next chemo session on 6. Hypothyroidism: on synthroid 7. Afib: controlled. On cardizem. DVT prophylaxis: SCDs. Code status: full code. Patient counselled about different types of code status and their meanings. He was counselled about difference between Full code, DNRCC and DNRCCA. Patient elects to be full code. Total face to face time: 18 minutes This note was generated with [employer] dictation software. It may contain incorrect words, spelling, and punctuation that were not noted in checking the note before signing. Code Visit Inpatient E&M: 56461 Subs Hosp L3 Procedures: 69476 Advncd Care Plan 30 Min
[2018-01-12] MEDS: Ceftriaxone 1 GM/50 ML BAG IV (15:15)
[2018-01-12 16:02] LABS: Lactic Acid 0.5 mmol/L (0.4-2.0)
--- NOTE | 2018-01-12 16:49 | ONC.CON.INP2 ---
- Problem List (1) Non-small cell carcinoma of left lung, stage 3 Status: Chronic (2) Pancytopenia Status: Acute (3) Abdominal pain Status: Acute (4) Constipation Status: Acute Consult Referring Physician: Hospitalist service Consult Results: Lung cancer, pancytopenia, abdominal pain, constipation Subjective Date of Service:: 01/12/18 Chief Complaint: Abdominal pain History of Present Illness: Patient is a 62-year-old male with stage IIIb non-small cell lung cancer on combined chemoradiation last chemotherapy was January 01, 2018 last radiation was today January 12, 2018. Patient admitted with increasing abdominal pain over the past 3 days, no nausea or vomiting, he has been constipated for at least 4 days. No fever, no increasing dyspnea, has a chronic cough no change in character and no sputum production. Past Medical History: Chronic Problems (Last Updated 01/12/18 @ 16:49 by Serina Hollingsworth MD) PEG (percutaneous endoscopic gastrostomy) status (Chronic) Tobacco dependence in remission (Chronic) Pulmonary nodule, left (Chronic) History of laryngeal cancer (Chronic) Non-small cell carcinoma of left lung, stage 3 (Chronic) Dysphagia (Chronic) Chronic anemia (Chronic) Atrial fibrillation and flutter (Chronic) Pleural effusion (Chronic) Chemotherapy management, encounter for (Chronic) Past Medical/Surgical History: Past Medical History - Most Recent Inpatient Visit Past Medical History Start: 01/12/18 14:47 Text: Status: Complete Freq: Protocol: Document 01/12/18 14:47 TASNEEM (Rec: 01/12/18 14:53 [facility] [id number] BMI Required to complete PMH What is Patient's BMI 19.7 Past Medical History Unable History Recalled No Query Text:Pt Unable/Family Not Present Neurologic Medical History Hx Stroke/TIA No Hx Dementia/Alzheimer's No Hx Parkinson's Disease No Hx Seizures No Hx Multiple Sclerosis No Hx Migraines No Cardiac Medical History VTE Present on Admission No Hx of Deep Vein Thrombosis/VTE/PE No Hx Hypertension No Hx Chest Pain/Angina Yes Hx Heart Attack No Hx Cardiac Surgery/Stents/Etc. No Hx Heart Failure No Hx Pacemaker/AICD No Hx Irregular Heartbeat and/or Afib Yes Hx Anticoagulant Therapy No Query Text:(Coumadin, Aspirin, Plavix, Xarelto, etc.) Hx Pain in Legs when Walking/Leg Cramps No Respiratory Medical History Hx COPD No Hx Emphysema No Hx Smoking Yes: QUIT 2014 Smoking Status Former smoker Tobacco Use Cigarettes Hx Smoking Cessation Counseling Yes Hx Smoking Exposure Yes Hx Tobacco Use in last 12 months No Hx of Pipe Smoking No Hx Sleep Apnea No: . CPAP No BIPAP No Do you snore loudly (louder than talking No or can be heard through closed doors)? Do you often feel tired/ fatigued/ Yes sleepy during daytime? Has anyone observed you stop breathing No during sleep? STOP Results Negative GI Medical History Hx Ulcer No Hx Hepatitis No Hx Cirrhosis No Hx GI Bleed No: ESOPHAGUS STRETCHED Hx Unplanned Weight Loss Yes Genitourinary Medical History Indwelling Catheter in Place on Arrival/ No Admission Hx Renal Disease No Hx Dialysis No Musculoskeletal History Hx Arthritis Yes Hx Rheumatoid Arthritis No Endocrine Medical History Hx Diabetes No Hx Thyroid Disease Yes: ON MED Hematologic Medical History Hx of Blood Transfusion Yes Hx of Transfusion in last 3 Months Yes Date of Last Transfusion (if within last 2018 3 months) Ever experience any problems with No transfusion(s)? Hx of Preganancy in last 3 Months N/A Nurse Filling Out Transfusion & SGESSEL Questions: Date: 01/12/18 Time: 14:50 Psycho/Social Medical History Hx Depression No Hx Anxiety Yes Hx Behavior Disorder No Hx Alcohol Use Yes: 12 BEERS /DAY QUIT 2 YRS AGO Hx Substance Use No Other Medical History Hx Blood Disorders No Hx Anemia Yes Hx Cancer Yes: throat/neck/ LUNG cancer/ RADIATION TX Hx Drug Resistant Organism Yes: MRSA Wound/Pressure Injury Present on Arrival No: TO BE ASSESSED PER PRIMARY /Admission RN Query Text:If yes, chart assessment in Shift/Clinical Findings Central Line/PICC/VAD Present on Arrival Yes /Admission Antibiotics within last 7 days? No Comments LAST CHEMO 2 WEEKS AGO Risk for Readmission Number of Risk Factors 8 At Risk for Readmission Patient is At Risk For Readmission Patient is eligible for Call Back Y Past Medical History (Last Updated 01/12/18 @ 16:49 by Serina Hollingsworth MD) Pain (Acute) PEG (percutaneous endoscopic gastrostomy) status (Chronic) Tobacco dependence in remission (Chronic) Pulmonary nodule, left (Chronic) History of laryngeal cancer (Chronic) Non-small cell carcinoma of left lung, stage 3 (Chronic) Dysphagia (Chronic) Chronic anemia (Chronic) Atrial fibrillation and flutter (Chronic) Pleural effusion (Chronic) Chemotherapy management, encounter for (Chronic) Anemia (Acute) Chicken pox (Acute) Dysphagia (Acute) Hypernatremia (Acute) Hyponatremia (Acute) Hypothyroidism (Acute) Laryngeal cancer (Acute) Lymphadenitis (Acute) Measles (Acute) Mumps (Acute) Past Surgical History (Last Updated 01/09/18 @ 10:58 by Edna Mc) Status post insertion of percutaneous endoscopic gastrostomy (PEG) tube (Chronic) port placement (Chronic) History of hernia repair (Resolved) History of thoracentesis (Resolved) LEFT WRIST SURGERY (Resolved) Paternal Family History: Family History (Last Reviewed 01/08/18 @ 09:29 by Carlota Miguel) Father Heart disease Family History: Heart Disease - Maternal Family History: Family History (Last Reviewed 01/08/18 @ 09:29 by Carlota Miguel) Father Heart disease Family History: No pertinent history - Social History Smoking Status: Former smoker Tobacco Use: Cigarettes Allergies/Adverse Reactions: Allergy/AdvReac Type Severity Reaction Status Date / Time Iodinated Contrast- Oral and Allergy Mild Rash Verified 01/09/18 10:57 IV Dye [CT] Review of Systems Constitutional:: Reports: Weakness, Fatigue, Weight loss, Appetite change. Denies: Fever, Sweats, Chills Cardiovascular:: Reports: Dyspnea on exertion. Denies: Chest pain, Palpitations, Orthopnea, PND, Shortness of breath Respiratory: Reports: Shortness of breath upon exertion. Denies: Cough, Hemoptysis, Shortness of Breath, Wheezing Gastrointestinal:: Reports: Abdominal pain - Pain in the right upper abdomen does not appear to be related to food intake., Constipation. Denies: Nausea, Vomiting, Diarrhea, Hematochezia Genitourinary: Denies: Dysuria, Hematuria, 15, Flank pain Musculoskeletal:: Denies: Back pain, Myalgia, Arthralgia Skin: Denies: Rash, Skin Changes, Wounds Neurological:: Denies: Headache, Dizziness, Visual changes, Tinnitus, Hearing loss Psychiatric: Denies: Anxiety, Depression, Homicidal Ideations, Suicidal Ideations Vital Signs Height 5 ft 7 in Weight: 57.017 kg Weight in Pounds 125.7 lbs Pulse Ox 96 Temperature 99.2 F Pulse Rate 84 Respiratory Rate 16 Blood Pressure 120/55 Blood Pressure Position Semi-Fowlers - Physical Exam General: Alert, Oriented x3, No apparent distress, - - ECOG 2, cachectic, hoarse (chronic with a history of laryngeal cancer) HEENT: Atraumatic, PERRLA, EOMI, Normocephalic Oropharynx:: Dry mucosa Neck:: Supple, Trachea midline, -. Negative for: JVD, bilateral Cardiac:: Regular rate, Regular rhythm, Normal S1, Normal S2. Negative for: Murmur Lungs: Clear to auscultation, Diminished - More notably over the left lower lung zone, Excusion symmetrical. Negative for: Rhonchi, Wheezes Abdomen:: Soft, Non-tender, Non-distended, - - No peritoneal signs. Negative for: Hepatosplenomegaly Extremities:: Negative for: Cyanosis, Edema Neurological: Neuro grossly intact Skin:: Negative for: Lesions, Rash, Petechiae, Ecchymosis Psychiatric:: Appropriate affect, Euthymic Lymphatics:: Negative for: Cervical lymphadenopathy, Supraclavicular lymphadenopathy Laboratory Data: Laboratory Tests 01/12/18 Range/Units 15:28 Lactic Acid 0.5 (0.4-2.0) mmol/L Diagnostic Data: Diagnostic Data Acute Abdomen Series 01/12/18 11:00 IMPRESSION: Large amount of fecal material is seen in the colon. Stable pleural parenchymal changes at the left lung base. Electronically Signed: Yosef Blevins MD at 11:27 EDT Tel [phone], Service support , Abdomen/Pelvis CT 01/12/18 11:30 IMPRESSION: Large amount of fecal material in the right hemicolon. Left pleural effusion with consolidation in the left lower lobe. Left renal cyst. Distended urinary bladder. Electronically Signed: Yosef Blevins MD at 14:07 EDT Tel [phone], Service support , Assessment and Plan 62-year-old male with: 1. Stage IIIb non-small cell lung cancer just concluded combined modality therapy (last chemo January 01, 2018, last radiation January 12, 2018). 2. Pancytopenia post chemo and radiation, await bone marrow recovery. A) prophylactic transfusion was packed red blood cells if hemoglobin less than 7 g per DL or symptomatic. B) prophylactic platelet transfusion if less than 10 K. Use nonpharmacologic VTE prophylaxis if platelets are less than 50 K C) Granix (G-CSF) 5 mg/kg (rounded to 300 mg) subcu daily until absolute neutrophil count recovery to above 1000 for 3 days. 3. Abdominal pain, acute but no evidence for an acute surgical abdomen and CT imaging is more consistent with intractable constipation. Advised oral laxative and avoid rectal route until after neutrophil recovery to minimize risk for bacteremia. 4. There is no evidence to suggest an active infection at the present time and therefore will hold off prophylactic antibiotics. 5. High risk for VTE, use nonpharmacologic prophylaxis until platelets are above 50 K. Pression and plan discussed with patient and Medications: Prescriptions This Visit Medication Instructions Recorded Clonazepam [Clonazepam] 0.5 mg PO DAILY 01/12/18 Diltiazem HCl 60 mg PO BID 01/12/18 Polyethylene Glycol 3350 [Miralax] 17 gm GT DAILY PRN PRN 01/12/18 Medications Added to Medication List This Visit Category Date Time Status 0.9% Normal Saline 1,000 ml Med 01/12/18 15:40 Active IV 100 mls/hr 0.9% Saline Lock Med 01/12/18 16:04 Active 5 - 30 ml IV UD PRN Albuterol Aerosols [Ventolin Aerosols] Med 01/12/18 15:40 Active 3 mg INHALATION Q4H PRN Clonazepam [Klonopin] Med 01/13/18 10:00 Active 0.5 mg PO DAILY Diltiazem [Cardizem] Med 01/12/18 22:00 Active 60 mg GT BID Ferrous Sulfate Med 01/12/18 17:00 Active 325 mg GT BIDCM Levothyroxine [Synthroid] Med 01/13/18 06:00 Active 150 mcg PO DAILY@0600 Magnesium Hydroxide [Milk Of Magnesia] Med 01/12/18 15:40 Active 30 ml PO DAILY PRN PRN Osmolite 1.2 Med 01/12/18 17:00 Active 750 ml GT TID Oxycodone [Oxyir] Med 01/12/18 15:40 Active 1 mg PO Q6H PRN Pantoprazole Sodium [Protonix] Med 01/12/18 15:40 Active 20 mg PO DAILY PRN Tbo-Filgrastim [Granix] Med 01/12/18 15:40 Active 300 mcg SC DAILY Primary Care Provider: NORM MonteroC Referring Provider:
[2018-01-12] MEDS: 0.9% Normal Saline 1,000 ML 100 ML IV (16:58)
[2018-01-12] MEDS: Ferrous Sulfate 325 MG Tablet GT (17:49)
[2018-01-12] MEDS: TBO-FILGRASTIM 300 MCG/0.5 ML ML SC (17:49)
[2018-01-12] MEDS: Magnesium Hydroxide 30 ML UDC PO (18:05)
[2018-01-12] MEDS: oxyCODONE 5 MG Tablet 10 MG PO (20:22)
[2018-01-12] MEDS: Senna/Docusate Sodium 1 Tablet PO (21:34)
[2018-01-12] MEDS: dilTIAZem 60 MG Tablet GT (21:34)
[2018-01-13] VITALS (11 sets, daily range): BP systolic 96–122; BP diastolic 55–72; PULSE 77–96; RESP 16–18; TEMP 36.6–37.1; O2SAT 93–96
[2018-01-13] MEDS: 0.9% Normal Saline 1,000 ML 100 ML IV (03:25)
[2018-01-13] MEDS: 0.9% NaCl Peripheral Flush Adult/Peds IV ×3 (04:59→18:48)
[2018-01-13 05:33] LABS: Anion Gap 9 (5-15); BUN 17 mg/dL (7-18); BUN/Creat Ratio 23.5 RATIO (10-20); Calcium,Total 8.4 mg/dL (8.5-10.1); Chloride 98 mmol/L (98-107); Creatinine, Serum 0.72 mg/dL (0.70-1.30); EST Glomerular Filtration Rate 117 mL/min (>60); Est Glom Filt Rate - Afr Amer 141 mL/min (>60); Estimated Creatinine Clearance 85.79 ml/min; Glucose 101 mg/dL (74-106); Potassium 4.2 mmol/L (3.5-5.1); Sodium Level 138 mmol/L (136-145)
[2018-01-13 05:42] LABS: Absolute Lymphocyte Count 0.08 X10^3/ul (0.83-4.51); Absolute Neutrophil Count 0.7 X10^3/uL (2.0-7.7); Hemoglobin 6.9 g/dl (13.0-16.5); Lymphocyte # 0.08 X10^3/ul (4.0); Lymphocyte % 7.8 % (19-41); Mean Corp Hgb Conc 32.9 g/gl (32-36); Mean Corpuscular Hgb 30.5 pg (27.0-32.0); Mean Corpuscular Volume 92.9 fL (80-94); Mean Platelet Vol. 9.9 fl (6.2-12.0); Monocyte# 0.27 X10^3/uL; Monocyte% 26.2 % (0-10); Neutrophil # 0.68 X10^3/uL (2.7-7.7); Platelet Count 53 K/mm3 (150-450); RBC Distribution Width CV 23.6 % (11.6-14.6); RBC Distribution Width SD 77.3 fl (35.1-43.9); Red Blood Count 2.26 M/mm3 (4.6-6.2)
[2018-01-13 05:45] LABS: Differential Indicated SCAN CRITERIA MET; POSITIVE COUNT YES; POSITIVE DIFFERENTIAL YES; POSITIVE MORPHOLOGY YES
[2018-01-13] MEDS: Levothyroxine 150 MCG Tablet GT (06:14)
[2018-01-13 06:36] LABS: Differential Comment SCAN
[2018-01-13 06:37] LABS: Anisocytosis 1+; Hypochromasia 2+; Microcytosis 1+; Polychromasia 1+
[2018-01-13] MEDS: dilTIAZem 60 MG Tablet GT (09:13)
[2018-01-13] MEDS: Ferrous Sulfate 325 MG Tablet GT (09:13)
[2018-01-13] MEDS: Senna/Docusate Sodium 1 Tablet GT (09:14)
[2018-01-13] MEDS: oxyCODONE 5 MG Tablet 10 MG GT (09:17)
[2018-01-13] MEDS: clonazePAM 0.5 MG Tablet GT (09:17)
[2018-01-13] MEDS: TBO-FILGRASTIM 300 MCG/0.5 ML ML SC (09:18)
--- NOTE | 2018-01-13 11:43 | CASEMGMT ---
SW met with patient, introduced self and role at [facility]. SW asked him if he remembered a SW talking with him about Palliative Care when he was at [facility] the end of November. He was not sure so SW started to tell him about Palliative Care and he said he remembered this conversation. He said he doesn't need anything and he will be fine. Jennifer BRITTON MSW
--- NOTE | 2018-01-13 11:51 | PCM.DC ---
- Discharge Diagnoses Current Active Problems: Current Active and Chronic Problems (Last Updated 01/12/18 @ 16:49 by Serina Hollingsworth MD) Constipation (Acute) Pancytopenia (Acute) Abdominal pain (Acute) Pain (Acute) You will use the following diet at home:: No restrictions, Other - PEG feedings as previously directed Your food should be the consistency of: Regular Your liquids should be the consistency of: Regular/Thin Discharge Activity: Return to Normal Activity Allergies/Adverse Reactions: Allergies Iodinated Contrast- Oral and IV Dye [CT] Allergy (Mild, Verified 01/09/18 10:57) Rash Medications to take at Discharge Albuterol IH (ProAir) [Proair Hfa] 2 puff INHALATION Q6H PRN #1 inhaler 12/18/17 Oxycodone HCl/Acetaminophen [Percocet 5-325] 1 tab PO Q6H PRN #90 tab 12/18/17 Ferrous Sulfate 325 mg GT BIDCM #90 tab 12/26/17 levothyroxine 150 mcg tablet 150 mcg PO DAILY tab 12/29/17 omeprazole 20 mg capsule,delayed release 20 mg PO DAILY PRN cap 01/09/18 Clonazepam 0.5 mg PO DAILY 01/12/18 Diltiazem HCl 60 mg PO BID 01/12/18 Polyethylene Glycol 3350 [Miralax] 17 gm GT DAILY PRN PRN 01/12/18 Primary Care Physician: Allison Sarmiento NP-C [Primary Care Provider] - Please follow up with your Primary Care Physician in: 1-2 weeks Test Results: Test results from this visit will be discussed in further detail at your follow-up appointment, if applicable. Please Follow Up With: Allison Sarmiento NP-C Please Follow Up With: Serina Hollingsworth MD When: 1 day Proposed Discharge Date: 01/13/18
--- NOTE | 2018-01-13 11:55 | DCINST_ITS ---
- Discharge Diagnoses Current Active Problems: Current Active and Chronic Problems (Last Updated 01/12/18 @ 16:49 by Serina Hollingsworth MD) Constipation (Acute) Pancytopenia (Acute) Abdominal pain (Acute) Pain (Acute) You will use the following diet at home:: No restrictions, Other - PEG feedings as previously directed Your food should be the consistency of: Regular Your liquids should be the consistency of: Regular/Thin Discharge Activity: Return to Normal Activity Allergies/Adverse Reactions: Allergies Iodinated Contrast- Oral and IV Dye [CT] Allergy (Mild, Verified 01/09/18 10:57) Rash Medications to take at Discharge Albuterol IH (ProAir) [Proair Hfa] 2 puff INHALATION Q6H PRN #1 inhaler Oxycodone HCl/Acetaminophen [Percocet 5-325] 1 tab PO Q6H PRN #90 tab 12/18/17 Ferrous Sulfate 325 mg GT BIDCM #90 tab 12/26/17 levothyroxine 150 mcg tablet 150 mcg PO DAILY tab 12/29/17 omeprazole 20 mg capsule,delayed release 20 mg PO DAILY PRN cap 01/09/18 Clonazepam 0.5 mg PO DAILY 01/12/18 Diltiazem HCl 60 mg PO BID 01/12/18 Polyethylene Glycol 3350 [Miralax] 17 gm GT DAILY PRN PRN 01/12/18 Primary Care Physician: Allison Sarmiento NP-C [Primary Care Provider] - Please follow up with your Primary Care Physician in: 1-2 weeks Test Results: Test results from this visit will be discussed in further detail at your follow- up appointment, if applicable. Please Follow Up With: Allison Sarmiento NP-C Please Follow Up With: Serina Hollingsworth MD When: 1 day Proposed Discharge Date: 01/13/18
[2018-01-13 12:42] LABS: Pathologist Review Reviewed
[2018-01-13 12:45] LABS: Pathologist Review Reviewed
--- NOTE | 2018-01-13 15:17 | PCM.DC.SUM ---
<Robbi Pathak - Last Filed: 01/13/18 15:17> Discharge Date and Diagnosis - Problem List Patient Problems: Active and Suspected Problems (Last Updated 01/12/18 @ 16:49 by Serina Hollingsworth MD) Constipation (Acute) Pancytopenia (Acute) Abdominal pain (Acute) Pain (Acute) Date of Admission: 01/12/18 Date of Discharge: 01/13/18 - Primary Discharge Diagnosis Active and Suspected Problems (Last Updated 01/12/18 @ 16:49 by Serina Hollingsworth MD) Abdominal pain 2/2 Constipation (Acute) Pneumonia ruled out Pancytopenia (Acute) 2/2 lung cancer/chemo, NSCLC stage IIIb Laryngeal cancer, dysphagia, s/p PEG tube Afib Chronic hyponatremia Hypothyroidism - Secondary Discharge Diagnosis Chronic Problems (Last Updated 01/12/18 @ 16:49 by Serina Hollingsworth MD) PEG (percutaneous endoscopic gastrostomy) status (Chronic) Tobacco dependence in remission (Chronic) Pulmonary nodule, left (Chronic) History of laryngeal cancer (Chronic) Non-small cell carcinoma of left lung, stage 3 (Chronic) Dysphagia (Chronic) Chronic anemia (Chronic) Atrial fibrillation and flutter (Chronic) Pleural effusion (Chronic) Chemotherapy management, encounter for (Chronic) Hospital Course and Treatment Imaging Results: CT/Abdomen/Pelvis WITH Contrast IMPRESSION: Large amount of fecal material in the right hemicolon. Left pleural effusion with consolidation in the left lower lobe. Left renal cyst. Distended urinary bladder. RAD/Acute Abdomen Inc Chest IMPRESSION: Large amount of fecal material is seen in the colon. Stable pleural parenchymal changes at the left lung base. Consults: Oncology -Edel Operations: None Procedures: None Summary of Care Provided: Physical exam on day of discharge: General: Resting comfortably NAD Psych: A/Ox3 normal affect HEENT: PEARRLA AT NC Neck: Supple NT CV: RRR no m/t/r/g/h Resp: CTA Abd: [id number] Soft NT no guarding or rigidity Ext: DP2+= no edema Skin: W/D normal turgor Lymph/Heme: No active bleeding or adenopathy Neuro: CN2-12 intact Hospital course: The patient is a 62 year old M with history as above currently on chemotherapy for non-small cell lung cancer with laryngeal cancer, who presented to the emergency room with upper abdominal pain. Imaging revealed severe constipation. Initially there was concern for possible developing infiltrate on CAT scan however this was consistent with prior known lung cancer. He was also found to be pancytopenic. He was admitted to the PCU, oncology was consulted, and started on oral laxatives. By the following morning he had 2 large bowel movements with improvement in his abdominal pain. It was felt that his constipation was likely 2/2 chronic opiate use. He received a dose of Shad X per oncology, and they advised for him to continue grindings until his absolute neutrophil count is greater than 1000 for 3 days. His hemoglobin did drop below 7 so 1 unit of blood was transfused. He was discharged home in stable condition. Please follow up with oncology tomorrow, and see your PCP in 2 weeks. This patient was seen by Robbi Pathak PA-C under the supervision of Doctor Milind. [] Discharge Diet: No Restrictions Discharge Activity: Return to Normal Activity Home Medications: Medications to take at Discharge Albuterol IH (ProAir) [Proair Hfa] 2 puff INHALATION Q6H PRN #1 inhaler 12/18/17 Oxycodone HCl/Acetaminophen [Percocet 5-325] 1 tab PO Q6H PRN #90 tab 12/18/17 Ferrous Sulfate 325 mg GT BIDCM #90 tab 12/26/17 levothyroxine 150 mcg tablet 150 mcg PO DAILY tab 12/29/17 omeprazole 20 mg capsule,delayed release 20 mg PO DAILY PRN cap 01/09/18 Clonazepam 0.5 mg PO DAILY 01/12/18 Diltiazem HCl 60 mg PO BID 01/12/18 Polyethylene Glycol 3350 [Miralax] 17 gm GT DAILY PRN PRN 01/12/18 Senna/Docusate Sodium [Senokot-S] 1 tab GT BID #60 tab 01/13/18 Tbo-Filgrastim [Granix] 300 mcg SC DAILY #5 vial 01/13/18 Following Prescrptions Were Given to Patient: Tbo-Filgrastim [Granix] 300 mcg SC DAILY #5 vial Senna/Docusate Sodium [Senokot-S] 1 tab GT BID #60 tab Primary Care Physician: Allison Sarmiento NP-C [Primary Care Provider] - Please follow up with your Primary Care Physician in: 1-2 weeks Please Follow Up With: Allison Sarmiento NP-C Please Follow Up With: Serina Hollingsworth MD When: 1 day Disposition: Home Minutes spent on discharge:: 35 Patient Condition:: Stable Medical Necessity - Tobacco Use Smoking Status: Former smoker Tobacco Use: Cigarettes Meaningful Use Info Meaningful Use Diagnoses (Choose all that apply): None applicable <Aminah Vaz - Last Filed: 01/13/18 17:44> Discharge Date and Diagnosis - Primary Discharge Diagnosis Active and Suspected Problems (Last Updated 01/12/18 @ 16:49 by Serina Hollingsworth MD) Constipation (Acute) Pancytopenia (Acute) Abdominal pain (Acute) Pain (Acute) - Secondary Discharge Diagnosis Chronic Problems (Last Updated 01/12/18 @ 16:49 by Serina Hollingsworth MD) PEG (percutaneous endoscopic gastrostomy) status (Chronic) Tobacco dependence in remission (Chronic) Pulmonary nodule, left (Chronic) History of laryngeal cancer (Chronic) Non-small cell carcinoma of left lung, stage 3 (Chronic) Dysphagia (Chronic) Chronic anemia (Chronic) Atrial fibrillation and flutter (Chronic) Pleural effusion (Chronic) Chemotherapy management, encounter for (Chronic) Hospital Course and Treatment Summary of Care Provided: Patient seen by Robbi Corral PA-C under my supervision. The patient is a 62 year old M with a history of laryngeal cancer, lung cancer on chemotherapy was admitted via the ED with complaint of upper abdominal pain a few days. Labs were remarkable for pancytopenia with severe neutropenia of 0.1. CT of the abdomen was essentially benign for abdominopelvic pathology but revealed possible infiltrate in the left lower lobe of the chest. He was therefore initially admitted to be managed for health associated pneumonia. Upon admission however on further review of the CT and previous CTs, consolidation had been persistent was consistent with known lung cancer. Abdominal x-rays done showed large stool burden. Patient was therefore managed for constipation likely due to chronic opioid use on account of cancer. He was also managed for pancytopenia due to chemotherapy and cancer. He was started on Granix SC. He was put on oral laxatives and the following day he had 2 large bowel movements and felt that the abdominal pain had been relieved. Patient's hemoglobin dropped to 6.9 and so he was transfused 1 unit of blood. Patient remained stable and was would have preferred to keep him for 1 more day to check if his hemoglobin had come up after transfusion, patient insisted on going home after transfusion. He is to continue with his chronic's for 5 days and is to follow-up with his primary care doctor and oncologist in 1 week and to check his CBC in one week. Was also given a prescription for oral laxatives to help with his bowel regimen. Patient seen and examined prior to discharge. He had no complaints and felt well. He denies any fever or chills, cough or chest pain, shortness of breath, any abdominal pain, any diarrhea vomiting. Review of systems is otherwise negative. o/e: Vitals: Vital Signs Height 5 ft 7 in Weight: 125 lb 10.616 oz Weight in Pounds 125.7 lbs BMI 20.7 Pulse Ox 95 Temperature 98.1 F Pulse Rate 83 Respiratory Rate 18 Blood Pressure 98/55 Blood Pressure Position Sitting General: Alert, Oriented x3, Cooperative, No apparent distress HEENT: Atraumatic, PERRLA, EOMI, - - nontender, firm fullness over right side of neck Oral: Moist Mucosa Neck: Supple, No JVD, Negative Carotid Bruits Lungs: - - decreased breath sounds bibasally, with no crackles or wheezing. Cardiovascular: Regular rate, Regular Rhythm, Normal S1, Normal S2, No murmurs Abdomen: Bowel Sounds Present, Soft, Non Tender, Non-Distended, No Hepato-splenomegaly, - - PEG tube. Extremities: No clubbing, No cyanosis, No edema, Capillary Refill Less than 3 Seconds Skin: No rashes, No breakdown Musculoskeletal: No Tenderness to Palpation of Joints or Extremities Lymphatic: No Cervical, Supraclavicular, or Inguinal Adenopathy Neurological: Cranial nerves II-XII grossly intact, Motor Exam 5/5 strength throughout Psych/Mental Status: Normal Affect, Appropriate, Alert and oriented to time, place, person, mood and affect Comment: Left chest mediport Plan as stated above. Agree with Robbi Pathak PA-C's note, assessment and plan. [] Code Visit Inpatient E&M: 77591 Disch Hosp
--- NOTE | 2018-01-13 15:28 | CASEMGMT ---
Face to Face with patient for initial transition planning/care coordination assessment. MARIO COYLE introduced self and role at [facility], pt voices understanding and consents to assessment at this time. Pt is sitting up in chair in no distress at this time. Pt is A/Ox4 at this time and answers all questions appropriately at this time. Care providers, pharmacy, and demographics verified. See attached link. Pt voices no further concerns/needs at this time. Advised pt to ask for CM if any further questions/concerns/needs arise, voices understanding. PLAN[place] MARIO [place]YLE
[2018-01-13 18:26] LABS: Hematocrit 24.2 % (40-54)
--- NOTE | 2018-01-13 18:49 | NURSING ---
port access flushed with NS & Heparin flush, deaccessed port. pt tolerated well.
--- NOTE | 2018-01-14 10:19 | CASEMGMT ---
Per Alayna MARTIN, pt had a script added on at discharge for Granix and it was sent to [facility] retail pharmacy and they are stating that it needed prior auth. Pt is scheduled to see Dr. Leigh today. Call to Dr Leigh's office and they state that they would prefer pt get the granix subq there and they will take care prior auth at this time. They state they will set pt up to come in and have granix given in the office. Script faxed to Lu's office at this time. Call to Cathy at [facility] retail pharmacy and she is updated on all at this time, voices understanding. Carlton MARTIN CM
--- NOTE | 2018-01-16 11:18 | CASEMGMT ---
RN CM Discharge F/U Phone Call LACE: 13 Strata: 4 Discharge date: 01/13/18 Call date: 01/16/18 Call time: 1122 Attempted to reach pt at this time without success, message left for pt to call this RN CM back. S[place]en RN CM Admission dx: Pneumonia
== END 2018-01-13 18:54 | disposition home or self-care (01) | DRG 391 ==
LOC: ED 10:33 → PCU 14:42
PROVIDERS: Physician Assistant; Admitting Provider Student in an Organized Health Care Education/Training Program; Emergency Provider Emergency Medicine; Family Provider Nurse Practitioner Family; PCP Nurse Practitioner Family; Visit Provider Student in an Organized Health Care Education/Training Program
DX: K59.03 Drug induced constipation (principal); D61.810 Antineoplastic chemotherapy induced pancytopenia; E87.1 Hypo-osmolality and hyponatremia; C34.92 Malignant neoplasm of unspecified part of left bronchus or lung; J90 Pleural effusion, not elsewhere classified; Z92.3 Personal history of irradiation; E03.9 Hypothyroidism, unspecified; I48.91 Unspecified atrial fibrillation; Z93.1 Gastrostomy status; K59.00 Constipation, unspecified; T40.605A Adverse effect of unspecified narcotics, initial encounter; T45.1X5A Adverse effect of antineoplastic and immunosuppressive drugs, initial encounter; R13.10 Dysphagia, unspecified; F17.201 Nicotine dependence, unspecified, in remission; C32.9 Malignant neoplasm of larynx, unspecified
CPT/HCPCS: 36591; 74022; 74177; 77336; 77386; 80048; 83605; 85014; 85018; 85025; 86644; 86850; 86900; 86920; 86922; 87040; 87449; 93005; 97802; 99281; J7030; J7040; J7050; P9040; Q9967; A4216; J1447; J2405; J3490

== ENCOUNTER 2018-02-12 08:58 | Outpatient (RCR) | payer MEDICARE, SELFPAY ==
[2017-11-06 15:18] VITALS: BMI 20.7
== END 2018-02-15 23:59 ==
LOC: NS 08:58
PROVIDERS: Family Provider Nurse Practitioner Family; PCP Nurse Practitioner Family; Visit Provider Internal Medicine Medical Oncology
DX: R13.10 Dysphagia, unspecified (principal); K59.03 Drug induced constipation; R63.4 Abnormal weight loss; N17.9 Acute kidney failure, unspecified; Z93.1 Gastrostomy status; Z68.1 Body mass index [BMI] 19.9 or less, adult; Z71.3 Dietary counseling and surveillance
CPT/HCPCS: 97802

== ENCOUNTER 2018-02-26 15:35 | Outpatient (RCR) | payer MEDICARE, SELFPAY ==
[2017-11-06 15:18] VITALS: BMI 20.7
== END 2018-03-18 23:59 ==
LOC: NS 15:35
PROVIDERS: Family Provider Nurse Practitioner Family; PCP Nurse Practitioner Family; Visit Provider Internal Medicine Medical Oncology
DX: R13.10 Dysphagia, unspecified (principal); K59.03 Drug induced constipation; R63.4 Abnormal weight loss; N17.9 Acute kidney failure, unspecified; Z68.1 Body mass index [BMI] 19.9 or less, adult; Z43.1 Encounter for attention to gastrostomy
CPT/HCPCS: 97803

== ENCOUNTER 2018-04-06 17:24 | Inpatient (IN) | payer MEDICARE, SELFPAY ==
[2017-11-06 15:18] VITALS: BMI 20.7
[2018-04-06 17:24] VITALS: BP 133/71; PULSE 96; RESP 14; TEMP 36.8; O2SAT 96; BMI 19.6
--- NOTE | 2018-04-06 17:47 | CT_ITS ---
STUDY: CT ABDOMEN AND PELVIS WITHOUT CONTRAST REASON FOR EXAM: Male, 62 years old. Abdominal pain, nausea, weakness RADIATION DOSAGE (If Supplied By Facility): CTDIvol = ( 6.04 ) mGy, DLP = ( 292.95 ) mGycm TECHNIQUE: Transaxial images were obtained from the dome of the diaphragm to the symphysis pubis without oral contrast, and without intravenous contrast. Sagittal and coronal images were reconstructed. Individualized dose optimization techniques were used for this CT. COMPARISON: Prior study of 01/12/2018 FINDINGS: There is left basilar atelectasis. Coronary arterial calcifications are present. There is a trace pericardial effusion. Normal liver. Normal gallbladder and extrahepatic biliary system. There is borderline splenomegaly. Normal pancreas. Normal bilateral adrenal glands. Normal right kidney. There is a 3.2 cm cyst of the lower pole of the left kidney. A PEG tube is noted in the stomach. Normal small intestine. There is a large amount of colonic stool. The appendix is visualized and appears normal. There are calcified plaques of the abdominal aorta and common iliac arteries. Normal inferior vena cava. Normal retroperitoneum. Normal urinary bladder. The prostate, seminal vesicles, and seminal vesicle angles are within normal limits. Normal abdominal wall. There are degenerative changes of the lumbar spine. CT/Abdomen/Pelvis without Cont IMPRESSION: 1. Trace pericardial effusion. This is new in the interval. 2. Borderline splenomegaly. 3. Stable 3.2 cm cyst of the left kidney. 4. A PEG tube is present in the stomach. 5. There is a large amount of colonic stool. 6. There is no evidence of free intra-abdominal or intrapelvic air or fluid. Electronically Signed: Jeffery Suárez MD at 19:54 EST , Service support ,
--- NOTE | 2018-04-06 17:50 | CT_ITS ---
STUDY: CT BRAIN WITH AND WITHOUT CONTRAST REASON FOR EXAM: Male, 62 years old. Headache, weakness, nausea RADIATION DOSAGE (If Supplied By Facility): CTDIvol = ( 44.99 ) mGy, DLP = ( 1603.47 ) mGycm TECHNIQUE: Transaxial CT imaging of the brain was performed pre and post contrast administration. The examination was performed with intravenous administration of 50ML ml of Isovue 370 contrast material. Individualized dose optimization techniques were used for this CT. COMPARISON: None. FINDINGS: Normal soft tissue structures. Normal calvarium. There are 2 adjacent rim-enhancing lesions of the right occipitoparietal region measuring 2.5 cm and 1.9 cm respectively. There is an additional rim-enhancing right parietal lobe lesion measuring 1.7 cm. There is diffuse right hemispheric white matter edema. There is mild effacement of the right lateral ventricle. There is effacement of right hemispheric cerebral sulci and an approximately 5.5 cm midline shift toward the left. Normal basal ganglia and thalami. Normal brainstem. Normal cerebellum. There is no intracranial hemorrhage. There are no findings of an acute ischemic infarction. There is inspissated secretion in the left maxillary sinus. CT/Brain/Head W/WO Contrast IMPRESSION: Right occipital and parietal lobe rim enhancing lesions with associated white matter edema and midline shift toward the left. Findings are consistent with metastatic disease. There is no evidence of acute infarct or intracranial hemorrhage. Electronically Signed: Jeffery Suárez MD at 20:01 EST , Service support ,
[2018-04-06] MEDS: MethylPREDNISolone 125 MG/2 ML Vial 60 MG IV (18:24)
[2018-04-06] MEDS: DiphenhydrAMINE 50 MG/ML Syringe 25 MG IV (18:25)
[2018-04-06] MEDS: 0.9% Normal Saline 1,000 ML 150 ML IV (18:26)
[2018-04-06 18:43] LABS: Basophil# 0.01 X10^3/uL; Eosinophil# 0.01 X10^3/uL; Hematocrit 24.8 % (40-54); Hemoglobin 7.7 g/dl (13.0-16.5); Lymphocyte # 0.48 X10^3/ul (4.0); Mean Corpuscular Volume 112.7 fL (80-94); Mean Platelet Vol. 8.3 fl (6.2-12.0); Monocyte# 0.58 X10^3/uL; Neutrophil # 3.62 X10^3/uL (2.7-7.7); Platelet Count 437 K/mm3 (150-450); RBC Distribution Width CV 20.4 % (11.6-14.6); RBC Distribution Width SD 79.4 fl (35.1-43.9); White Blood Count 4.7 K/mm3 (4.4-11.0)
[2018-04-06 18:44] LABS: AST(SGOT) 12 U/L (15-37); Alanine Aminotransfer ALT/SGPT 14 U/L (16-61); Alkaline Phosphatase 69 U/L (45-117); Anion Gap 5 (5-15); BUN 16 mg/dL (7-18); BUN/Creat Ratio 17.1 RATIO (10-20); Bilirubin, Direct 0.17 mg/dL (0.00-0.30); Calcium,Total 8.1 mg/dL (8.5-10.1); Chloride 101 mmol/L (98-107); Creatinine, Serum 0.94 mg/dL (0.70-1.30); EST Glomerular Filtration Rate 87 mL/min (>60); Est Glom Filt Rate - Afr Amer 105 mL/min (>60); Estimated Creatinine Clearance 67.54 ml/min; Globulin 3.1 g/dL (2.2-4.2); Glucose 82 mg/dL (74-106); Potassium 3.6 mmol/L (3.5-5.1); Protein, Total 6.1 g/dL (6.4-8.2); Sodium Level 136 mmol/L (136-145)
[2018-04-06 18:46] LABS: Differential Indicated SCAN CRITERIA MET; POSITIVE COUNT NO; POSITIVE DIFFERENTIAL YES; POSITIVE MORPHOLOGY YES
[2018-04-06 18:50] LABS: International Normalized Ratio 1.1
[2018-04-06 18:51] LABS: Partial Thromboplast Time 41.6 Seconds (24.1-36.2)
[2018-04-06 19:19] LABS: Anisocytosis 2+
[2018-04-06 19:20] LABS: Polychromasia RARE
[2018-04-06 19:28] LABS: Lymphocyte 1 % (19-41); Metamyelocyte 1 % (0-1); Monocyte 13 % (0-10); Neutrophil-Band 18 % (0-5); Neutrophil-Segmented 67 % (47-70); Total Cells Counted 100 (MANUAL DIFF)
[2018-04-06 19:29] LABS: Scan Smear per Review Criteria MANUAL DIFF
--- NOTE | 2018-04-06 20:35 | ED.VISSUMM ---
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 Patient states today he took his medications through his PEG tube and then vomited on 2 separate occasions. He also presents with complaint of left hand cramping that occurred last week followed by rhythmic arm motions for several minutes. He had left hand and arm weakness since that time. Last night he had the cramping in his hand recurred with the rhythmic arm motions. Patient denies any known history of brain metastasis. Patient does follow with Dr. Leigh. Physical Examination: Vital signs are unremarkable. Patient sitting upright in bed no acute distress. Head neck examination is grossly unremarkable. He has no C-spine or paracervical muscular tenderness. Heart is regular rate and rhythm. Lung sounds are clear. Abdomen is soft with no focal tenderness. PEG tube is in place. Hypoactive bowel sounds are present. Neuro exam does reveal left arm weakness. He has strong distal pulses. Test Results: CBC was normal white count with a hemoglobin of 7.7. Chemistry studies normal. LFTs grossly unremarkable. Coags normal. Troponin negative. CT flank shows trace pericardial effusion. Borderline cardiomegaly is noted. PEG tube is present. There is a large amount of colonic stool. CT the head shows right occipital and right parietal lobe rim enhancing lesions with white matter edema and midline shift toward the left measuring 5.5 mm. Emergency Department Course and Treatment: Patient was given IV fluids. Test results were discussed with patient and son at bedside as well as . He advises that the patient needs steroids and with this rhythmic arm motion being concerning for seizure he will be started on Keppra. Patient will need an MRI to further evaluate the number of lesions present and best treatment options. Patient has been ordered initial dose of Decadron and Keppra. Treatment Plan: [] Disposition: Admit Impression: 1. Left arm weakness 2. Metastatic lesions to brain 3. Probable focal seizure left arm This note was generated with [employer]ation software. It may contain incorrect words, spelling, and punctuation that were not noted in review of the chart prior to signing ED Disposition - Plan for ED Patient: Chief Complaint: Weakness Referrals: Allison Sarmiento, SHILA-C [Primary Care Provider] -
--- NOTE | 2018-04-06 20:39 | ED.DCSUM_ITS ---
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 Patient states today he took his medications through his PEG tube and then vomited on 2 separate occasions. He also presents with complaint of left hand cramping that occurred last week followed by rhythmic arm motions for several minutes. He had left hand and arm weakness since that time. Last night he had the cramping in his hand recurred with the rhythmic arm motions. Patient denies any known history of brain metastasis. Patient does follow with Dr. Leigh. Physical Examination: Vital signs are unremarkable. Patient sitting upright in bed no acute distress. Head neck examination is grossly unremarkable. He has no C-spine or paracervical muscular tenderness. Heart is regular rate and rhythm. Lung sounds are clear. Abdomen is soft with no focal tenderness. PEG tube is in place. Hypoactive bowel sounds are present. Neuro exam does reveal left arm weakness. He has strong distal pulses. Test Results: CBC was normal white count with a hemoglobin of 7.7. Chemistry studies normal. LFTs grossly unremarkable. Coags normal. Troponin negative. CT flank shows trace pericardial effusion. Borderline cardiomegaly is noted. PEG tube is present. There is a large amount of colonic stool. CT the head shows right occipital and right parietal lobe rim enhancing lesions with white matter edema and midline shift toward the left measuring 5.5 mm. Emergency Department Course and Treatment: Patient was given IV fluids. Test results were discussed with patient and son at bedside as well as . He advises that the patient needs steroids and with this rhythmic arm motion be ing concerning for seizure he will be started on Keppra. Patient will need an MRI to further evaluate the number of lesions present and best treatment options. Patient has been ordered initial dose of Decadron and Keppra. Treatment Plan: [] Disposition: Admit Impression: 1. Left arm weakness 2. Metastatic lesions to brain 3. Probable focal seizure left arm This note was generated with [employer] software. It may contain incorrect words, spelling, and punctuation that were not noted in review of the chart prior to signing ED Disposition - Plan for ED Patient: Chief Complaint: Weakness Referrals: Allison Sarmiento, SHILA-C [Primary Care Provider] -
[2018-04-06 20:44] VITALS: BP 135/64; PULSE 81; RESP 16; O2SAT 97
--- NOTE | 2018-04-06 20:48 | PCM.HP.STD ---
Problem List (1) Weakness Status: Acute (2) Seizure Status: Acute (3) Brain cancer Status: Acute (4) Constipation Status: Acute (5) Abdominal pain Status: Acute (6) PEG (percutaneous endoscopic gastrostomy) status Status: Chronic (7) Tobacco dependence in remission Status: Chronic (8) History of laryngeal cancer Status: Chronic (9) Dysphagia Status: Chronic (10) Chronic anemia Status: Chronic (11) Atrial fibrillation and flutter Status: Chronic History of Present Illness Date of Admission: 04/06/18 Chief Complaint: weakness, nausea and vomiting The patient is a 62 year old male patient presents to the ER with a complaint of nausea and vomiting and weakness. He describes having involuntary movement of his left arm up and down along with contraction of his right hand. He has abdominal pain/discomfort at or just below his peg tube site and has not been able to keep medication or food down through his peg tube. He is status post laryngeal cancer diagnosed three years ago and then last month for metastatic tumors in the lung for which he has been getting treatment. Today CT scan of the brain shows three brain lesions with a midline shift. He will be admitted to our facility for medical management and MRI in the AM. He will require follow up consultation with neurosurgery to ascertain if any intervention is advised. He will be placed on IV fluid, steroids and Keppra and neurology will be consulted. Past Medical History Past Medical History (Chronic Problems): Chronic Problems (Last Reviewed 03/12/18 @ 09:24 by Jania Vallejo) PEG (percutaneous endoscopic gastrostomy) status (Chronic) Tobacco dependence in remission (Chronic) Pulmonary nodule, left (Chronic) History of laryngeal cancer (Chronic) Non-small cell carcinoma of left lung, stage 3 (Chronic) Dysphagia (Chronic) Chronic anemia (Chronic) Atrial fibrillation and flutter (Chronic) Pleural effusion (Chronic) Chemotherapy management, encounter for (Chronic) Medical History: Medical History (Last Reviewed 03/12/18 @ 09:24 by Jania Vallejo) Pain (Acute) R52 Tobacco dependence in remission (Chronic) F17.201 Pulmonary nodule, left (Chronic) R91.1 History of laryngeal cancer (Chronic) Z85.21 Non-small cell carcinoma of left lung, stage 3 (Chronic) C34.92 Dysphagia (Chronic) R13.10 Chronic anemia (Chronic) D64.9 Atrial fibrillation and flutter (Chronic) I48.91, I48.92 Pleural effusion (Chronic) J90 Chemotherapy management, encounter for (Chronic) Z51.11 Anemia D64.9 Chicken pox B01.9 Dysphagia R13.10 Hypernatremia E87.0 Hyponatremia E87.1 Hypothyroidism E03.9 Laryngeal cancer C32.9 Lymphadenitis I88.9 Measles B05.9 Mumps B26.9 Allergies Iodinated Contrast- Oral and IV Dye [CT] Allergy (Mild, Verified 04/06/18 17:24) Rash Home Medications: Ambulatory Orders Medication Instructions Recorded Albuterol IH (ProAir) [Proair Hfa] 2 puff INHALATION Q6H PRN #1 12/18/17 inhaler levothyroxine 150 mcg tablet 150 mcg GT DAILY tab 12/29/17 Clonazepam 0.5 mg GT Q8H PRN 18 Ferrous Sulfate 325 mg GT BIDCM 90 Days #180 tab 03/24/18 Diltiazem HCl 60 mg GT BID 04/06/18 Lactose-Reduced Food/Fiber 750 ml GT BID 04/06/18 [Isosource 1.5 Magno Liquid] Omeprazole [Prilosec] 20 mg GT DAILY 18 Oxycodone HCl/Acetaminophen 1 tab GT Q6H PRN 04/06/18 [Oxycodone-Acetaminophen 10-325] Surgical History: Surgical History (Last Reviewed 03/12/18 @ 09:24 by Jania Vallejo) PEG (percutaneous endoscopic gastrostomy) status (Chronic) Z93.1 Status post insertion of percutaneous endoscopic gastrostomy (PEG) tube Z93.1 port placement History of hernia repair Z98.890, Z87.19 History of thoracentesis Z98.890 LEFT WRIST SURGERY Surgical History: herniorrhaphy, - - PEG tube placement. Psychiatric History: Anxiety Smoking Status: Former smoker - *Family History Paternal Family History: Family History (Last Reviewed 03/12/18 @ 09:24 by Jania Vallejo) Father Heart disease History Items: Heart Disease - Maternal Family History: Family History (Last Reviewed 03/12/18 @ 09:24 by Jania Vallejo) Father Heart disease History Items: No pertinent history Review of Systems Constitutional: Reports: Malaise, Weakness, Fatigue. Denies: Chills, Fever, Weight Change HEENT: Denies: Head Aches, Sinus Congestion, Sinus Drainage Cardiovascular: Denies: Chest Pain, Palpitations Respiratory: Denies: Cough, Shortness of breath at rest, Sputum production Gastrointestinal: Reports: Abdominal Pain, Nausea, Vomiting Genitourinary: Denies: Dysuria Musculoskeletal: Denies: Joint Pain, Joint Tenderness Skin: Denies: Rash, Wounds Neurological: Reports: Difficulty swallowing, Seizures. Denies: Focal weakness, Numbness, Tingling Psychiatric: Reports: Anxiety. Denies: Depression, Homicidal Ideations, Suicidal Ideations Hematologic/ Lymphatic: Denies: Easy Bruising, Easy Bleeding VTE Information - Inpt Only VTE Present on Admission: No VTE Mechan Device Prophylaxis: None VTE Pharm Prophylaxis ordered?: Yes Patient Problems: Active and Suspected Problems (Last Reviewed 03/12/18 @ 09:24 by Jania Vallejo) Weakness (Acute) Seizure (Acute) Brain cancer (Acute) - Physical Exam General: Alert, Oriented x3, Cooperative HEENT: Atraumatic, PERRLA, EOMI, Normocephalic Neck: Supple Lungs: Clear to auscultation, Normal air movement, No rhonchi, No wheeze, No rales Cardiovascular: Regular rate, Regular Rhythm, Normal S1, Normal S2, No murmurs Abdomen: Bowel Sounds Present, Soft, Tender - mild tenderness no guarding Extremities: No edema Skin: No rashes Musculoskeletal: No Tenderness to Palpation of Joints or Extremities Neurological: Neuro grossly intact Psych/Mental Status: Normal Affect, Appropriate Vital Signs Temp Pulse Resp BP Pulse Ox 98.3 F 81 16 135/64 H 97 04/06/18 17:24 04/06/18 20:44 04/06/18 20:44 04/06/18 20:44 04/06/18 20:44 Oxygen Delivery Method Room Air Weight: 129 lb 3.054 oz Body Mass Index (BMI) 19.6 Laboratory Tests Past 24 Hrs 04/06/18 04/06/18 04/06/18 18:10 18:10 18:10 WBC 4.7 RBC 2.20 L Hgb 7.7 L Hct 24.8 L MCV 112.7 H MCH 35.0 H MCHC 31.0 L RDW 20.4 H RDW Differential 79.4 H Plt Count 437 MPV 8.3 Immature Gran % (Auto) [employer]IT[employer] Neut % (Auto) [employer]ITY ARCHITECT Lymph % (Auto) [employer]ITY ARCHITECT Day % (Auto) [employer]ITY ARCHITECT Eos % (Auto) [employer]ITY ARCHITECT Baso % (Auto) [employer]ITY ARCHITECT Absolute Neuts (auto) 3.6 Absolute Lymphs (auto) 0.48 L Total Counted 100 Neutrophils % (Manual) 67 Band Neutrophils % 18 H Lymphocytes % (Manual) 1 L Monocytes % (Manual) 13 H Metamyelocytes % 1 [address] Review May foll Polychromasia RARE Anisocytosis 2+ PT 14.0 INR 1.1 APTT 41.6 H Sodium 136 Potassium 3.6 Chloride 101 Carbon Dioxide 30.0 Anion Gap 5 BUN 16 Creatinine 0.94 Estim Creat Clear Calc 67.54 Est GFR (MDRD) Af Amer 105 Est GFR (MDRD) Non-Af 87 BUN/Creatinine Ratio 17.1 Glucose 82 Calcium 8.1 L Total Bilirubin 0.40 Direct Bilirubin 0.17 AST 12 L ALT 14 L Alkaline Phosphatase 69 Troponin I < 0.015 Total Protein 6.1 L Albumin 3.0 L Globulin 3.1 Assessment/Plan All Active Problems (Last Reviewed 03/12/18 @ 09:24 by Jania Vallejo) Weakness (Acute) Seizure (Acute) Brain cancer (Acute) Constipation (Acute) Pancytopenia (Acute) Abdominal pain (Acute) Pain (Acute) Chronic Problems (Last Reviewed 03/12/18 @ 09:24 by Jania Vallejo) PEG (percutaneous endoscopic gastrostomy) status (Chronic) Tobacco dependence in remission (Chronic) Pulmonary nodule, left (Chronic) History of laryngeal cancer (Chronic) Non-small cell carcinoma of left lung, stage 3 (Chronic) Dysphagia (Chronic) Chronic anemia (Chronic) Atrial fibrillation and flutter (Chronic) Pleural effusion (Chronic) Chemotherapy management, encounter for (Chronic) Plan - admit to medical surgical floor - consult neurology - IV normal saline at 125cc/hour, zofran 8mg IV q 8hrs prn nausea, Solumedrol 40mg IV q8hrs, and Keppra 500mg IV q 12hrs - MRI brain in am - cbc, bmp in am - morphine 4mg IV q 2 hrs prn pain - miralax 17g in 4 oz water daily via peg - LMWH for DVT prophylaxis Code Visit Inpatient E&M: 26680 Init Hosp L3
[2018-04-06] MEDS: levETIRAcetam IV 1,000 MG/100 ML BAG 400 MG IV (21:04)
[2018-04-06] MEDS: Morphine 4 MG/ML Syringe IV (21:04)
[2018-04-06] MEDS: Ondansetron 4 MG/2 ML Vial IV (21:05)
[2018-04-06 21:18] LABS: Absolute Lymphocyte Count 0.05 X10^3/ul (0.83-4.51)
[2018-04-06 21:56] VITALS: BMI 19.5
[2018-04-06 21:59] VITALS: BP 120/62; PULSE 98; RESP 20; TEMP 36.9; O2SAT 97
[2018-04-06 22:10] VITALS: BMI 19.6
[2018-04-06 23:40] VITALS: BP 107/58; PULSE 82
[2018-04-06] MEDS: dilTIAZem 60 MG Tablet GT (23:56)
[2018-04-07] MEDS: 0.9% Normal Saline 1,000 ML 125 ML IV (04:10)
[2018-04-07 04:20] VITALS: BP 116/56; PULSE 72; RESP 18; TEMP 36.4; O2SAT 97
[2018-04-07 04:39] LABS: Absolute Lymphocyte Count 0.13 X10^3/ul (0.83-4.51); Hematocrit 26.3 % (40-54); Hemoglobin 8.2 g/dl (13.0-16.5); Lymphocyte # 0.13 X10^3/ul (4.0); Lymphocyte % 4.1 % (19-41); Mean Corp Hgb Conc 31.2 g/gl (32-36); Mean Corpuscular Hgb 35.3 pg (27.0-32.0); Mean Corpuscular Volume 113.4 fL (80-94); Mean Platelet Vol. 8.2 fl (6.2-12.0); Monocyte# 0.04 X10^3/uL; Monocyte% 1.3 % (0-10); Neutrophil # 2.98 X10^3/uL (2.7-7.7); Platelet Count 405 K/mm3 (150-450); RBC Distribution Width CV 19.9 % (11.6-14.6); RBC Distribution Width SD 78.9 fl (35.1-43.9); Red Blood Count 2.32 M/mm3 (4.6-6.2); White Blood Count 3.2 K/mm3 (4.4-11.0)
[2018-04-07 04:40] LABS: Differential Indicated SCAN CRITERIA MET; POSITIVE COUNT NO; POSITIVE DIFFERENTIAL YES; POSITIVE MORPHOLOGY YES
[2018-04-07 04:48] LABS: Anion Gap 13 (5-15); BUN 21 mg/dL (7-18); BUN/Creat Ratio 18.9 RATIO (10-20); Calcium,Total 8.9 mg/dL (8.5-10.1); Chloride 100 mmol/L (98-107); Creatinine, Serum 1.11 mg/dL (0.70-1.30); EST Glomerular Filtration Rate 71 mL/min (>60); Est Glom Filt Rate - Afr Amer 86 mL/min (>60); Estimated Creatinine Clearance 55.34 ml/min; Glucose 128 mg/dL (74-106); Potassium 4.5 mmol/L (3.5-5.1); Sodium Level 139 mmol/L (136-145)
[2018-04-07 05:25] LABS: Anisocytosis 1+; Differential Comment SCAN; Hypochromasia 1+; Macrocytosis 1+; Polychromasia 1+
[2018-04-07] MEDS: 0.9% NaCl VAD Flush 10 ML IV ×2 (05:52→05:56)
[2018-04-07] MEDS: Levothyroxine 150 MCG Tablet GT (06:01)
--- NOTE | 2018-04-07 07:22 | MRI_ITS ---
STUDY: MRI BRAIN WITH AND WITHOUT CONTRAST REASON FOR EXAM: Male, 62 years old. Weakness and history of lung cancer TECHNIQUE: Standardized multiplanar fat and water weighted pulse sequences were obtained. 5 ml of Gadavist contrast material was administered intravenously for the contrast portion of the examination. COMPARISON: CT 04/06/2018, MRI 10/14/2017 FINDINGS: 2 heterogeneous ring-enhancing masses are now noted in the right cerebrum. The first is in the posterior right frontal cortex measuring 17 x 16 mm, and the second is in the right temporooccipital subcortical white matter measuring 26 x 25 mm. Both lesions are associated with severe local vasogenic edema. There is effacement of the occipital horn of the right lateral ventricle. There is effacement of all adjacent sulci. A third lesion is identified in the anterior right cerebellar hemisphere measuring 10 x 9 mm. It is associated with mild local vasogenic edema. All 3 lesions are associated with internal T2 shine-through. The cerebral lesions both extend to the pial surface with mild adjacent dural enhancement. Normal sella turcica, pituitary gland, infundibular stalk, optic chiasm and hypothalamus. Normal tectal plate and pineal gland. Remote lacunar infarct in the left thalamus. Normal midbrain, daria and medulla. Normal basal cisterns. Normal bilateral temporal bones. Normal bilateral internal auditory canals. No demonstrated orbital abnormality, within the constraints of a routine brain study. Normal visualized paranasal sinuses. Normal calvarium and skull base. Normal visualized soft tissue structures. Normal visualized upper cervical spine. MRI/Brain W/WO Contrast IMPRESSION: 3 ring-enhancing brain masses are now present, located in the right frontal lobe, right temporo-occipital region, and right cerebellar hemisphere. Signal characteristics are most compatible with metastatic disease. No infarcts or hemorrhages are seen. Electronically Signed: Dennys Romero MD at 9:39 EST Tel , Service support ,
[2018-04-07 07:30] VITALS: BP 116/62; PULSE 81; RESP 18; TEMP 36.6; O2SAT 99
--- NOTE | 2018-04-07 09:03 | NURSING ---
FLUSHED PORT WITH NORMAL SALINE, CONTRAST GIVEN FOR MRI THEN FLUSHED AGAIN WITH 10 CC NORMAL SALINE, REPORT CALLED TO QUINTEN TO INFORM HER NO HEPARIN GIVEN, PT WILL BE HOOKED UP TO A RUNNING IV WHEN BACK TO FLOOR.
[2018-04-07] MEDS: oxyCODONE 5 MG Tablet GT ×2 (09:37→16:20)
[2018-04-07] MEDS: Polyethylene Glycol 3350 17 GM PACKET PO (09:37)
[2018-04-07] MEDS: Enoxaparin 40 MG/0.4 ML Syringe SC (09:37)
[2018-04-07] MEDS: dilTIAZem 60 MG Tablet GT (09:37)
[2018-04-07] MEDS: levETIRAcetam IV 100 ML 400 MG IV (09:41)
[2018-04-07 10:19] LABS: Pathologist Review Reviewed
--- NOTE | 2018-04-07 11:02 | CASEMGMT ---
Tertiary Hospitals in network in-network with insurance. [facility], [facility], [place], [facility], [facility], [place], [place], [place], [facility], [facility]. Per Giving Assistant Website [facility] is not in-network.
[2018-04-07] MEDS: clonazePAM 0.5 MG Tablet GT (11:32)
--- NOTE | 2018-04-07 12:33 | RAO.INPT.CON ---
Date of Service: 04/06/18 Referring Provider: Dr. 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 Unfortunately due to treatment delays the lung cancer appears to have progressed and caused complete collapse of the left lung romeo and interventional pulmonology was unable to place stent. From 11/25/17 - 01/12/18: Patient received definitive chemoradiation therapy to the left lung and hilar disease consisting of 6000 cGy in 30 fractions. History of Present Illness: 06/19/2015: Patient underwent direct laryngoscopy with biopsy of the supraglottic mass which demonstrated invasive moderately differentiated squamous cell carcinoma (p16 negative). 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 From 07/04/15-08/25/15 he received 7104 cGy in 36 fractions. Chemotherapy was given from 07/04/2015 through 08/09/2015 and consisted of 3 cycles of 100 mg/m? cisplatin. 12/23/2016: CT chest with contrast was performed which demonstrated a 1.5 x 1.4 cm noncalcified nodule in the peripheral aspect of the superior segment of the left lower lobe as well as a 5.3 mm noncalcified nodule in the posterior medial segment of the left lower lobe. 01/02/2017: Patient underwent CT-guided biopsy of the left lower lung mass which demonstrated evidence for pneumocyte to hyperplasia with mild atypia but no evidence of malignancy in the submitted specimen. 04/07/2017: CT chest with contrast was performed which showed that the previously seen spiculated mass in left lower lobe had enlarged and now measures 2.04 x 1.72 cm, there is a slightly enlarged small indistinct nodular density in the right upper lobe medially posterior to the trachea which measures 0.46 cm and on the previous exam measured 0.3 cm, there is a lymph node anterior to the right mainstem bronchus which on short axis measures 0.95 cm and previously was 0.65 cm, enlarged left hilar lymph node measuring 1.1 cm is new. 07/07/2017: CT chest with contrast was performed which demonstrated a 2.4 x 1.2 cm lobulated irregular nodular density in the peripheral aspect of the left lower lobe which has increased in size from the previous study, a prominent left hilar lymph node is measured at 2.2 cm. 09/16/2017: CT chest with contrast was performed and demonstrated that the left lower lobe nodular density measuring 3.5 x 2.5 cm and previously measured 2.4 x 1.2 cm, there is a new left infrahilar mass measuring about 4.2 by 3.4 cm resulting in complete occlusion of the right lower lobe bronchus with extension into the segmental bronchi of the right lower lobe. 09/26/2017: Bronchoscopy with EBUS was performed. There was noted to be a large circumferential endobronchial lesion noted at the bifurcation of the left upper and left lower lobes and this lesion appeared to nearly completely obstructed orifice of the left lower lobe takeoff. On ultrasound this lesion measured at least 3.5 x 4.5 cm and several biopsies were obtained. Pathology demonstrated fragment of necrotic material with atypical squamous cells suspicious for carcinoma (CK7 weakly positive, CK20/TTF1/p16 all negative). 10/14/2017: MRI brain was completed which showed no evidence for intracranial metastatic disease. 10/16/2017: PET scan was performed which showed evidence for persistent and newly defined increased glucose concentration manifest in the left mid lower posterior, posterior lateral hemithorax pulmonary parenchyma with a calculated SUV of 12.7, newly defined increased glucose concentration manifest in the precarinal posterior mediastinum and left thoracic perihilum. There is interim metabolic resolution of the previously identified left lower lobe pulmonary parenchymal as well as laryngeal structure hypermetabolic abnormalities. 11/07/2017: Patient underwent ultrasound-guided thoracentesis and 530 mL of blood-tinged fluid was drained, there were no malignant cells identified in the retreat fluid. 11/10/2017: Patient was admitted after returning to the hospital with increasing shortness of breath over the weekend. 11/11/2017: Left tunneled Pleurx catheter was placed 11/12/2017: CT chest without contrast was performed which demonstrated progressive opacification of the left hemithorax with only a small amount of aeration within the left upper lobe, ill-defined hilar density consistent with the previously identified mass/adenopathy, volume loss within the left chest with mediastinal shift towards the left, small nodular density along the right side of the trachea which may represent adherent debris or mass, complete occlusion of the left mainstem bronchus, small left pleural effusion with pleural catheter in place. 11/13/2017: Due to the need for interventional pulmonology consultation the patient was transferred to [facility] to attempt bronchoscopy and stent placement. Mucous plugging and tumor were noted in the left mainstem bronchus, an endobronchial stent was placed but then removed due to suboptimal position and therefore he was sent back to the ICU and extubated and then discharged on 11/14/2017. From 11/25/17 - 01/12/18: Patient received definitive chemoradiation therapy to the left lung and hilar disease consisting of 6000 cGy in 30 fractions. 01/22/18: Initiated consolidative carbo/taxol 04/06/2018: Patient presented to the emergency room with a 3-day history of nausea/vomiting, left hand weakness/seizure activity. 04/06/2018: CT head with and without contrast was performed which demonstrated which demonstrated 3 lesions with associated edema and 5.5 mm midline shift to the left. 04/06/2018: CT abdomen/pelvis was completed which demonstrated trace pericardial effusion, borderline splenomegaly, stable 3.2 cm cyst in the left kidney, and no other abnormalities identified including evidence for metastatic disease. 04/07/2018: MRI of the brain was completed which demonstrated evidence of 3 ring enhancing lesions that are compatible with metastatic disease. These lesions include a 1.7 x 1.6 cm lesion in the right frontal cortex, a 2.6 x 2.5 cm lesion in the right temporal occipital region, and a 1 x 0.9 cm lesion in the right cerebellar hemisphere. There is noted to be associated edema with all lesions. Radiation Treatment History: 1) From 07/04/15-08/25/15 he received 7104 cGy in 36 fractions. Chemotherapy was given from 07/04/2015 through 08/09/2015 and consisted of 3 cycles of 100 mg/m? cisplatin. 2) From 11/25/17 - 01/12/18: Patient received definitive chemoradiation therapy to the left lung and hilar disease consisting of 6000 cGy in 30 fractions. Interval History: Patient was most recently undergoing consolidative chemotherapy with carbo/Taxol under the care of medical oncology. Approximately 3 days prior to admission patient developed twitching seizure-like activity involving the left hand and arm which lasted approximately 3 minutes. He developed no confusion after this and did not have seizure-like activity in any other parts of his body. He had no change in cognitive function or memory and did not lose consciousness during this episode. He then had a recurrence 2 days ago of a very similar experience involving the left hand and arm lasting approximately same amount of time. Over these last few days he is also noted progressively worsening in his strength involving the left hand and has found that he is dropping things more commonly and having a difficult time holding onto things/clenching his hand. He denied having weakness in any other motions in his left arm and denies having any sensory changes. Proximally 5 days ago he developed nausea with occasional vomiting. All feeding is through his PEG tube as he has not been able to swallow since completing treatment for his larynx cancer in 2016. He denies headaches, vision changes, changes in speech, ataxia, falls, changes in cognitive function/memory, weakness anywhere other than his left hand, numbness anywhere in his body, unexpected weight loss, or fatigue. He denies having any worsening in breathing and specifically denies having cough, hemoptysis, increased shortness of breath on exertion. Since initiating Decadron last night he has noted essentially normal strength in the left hand and has not had any other seizure activity for the last 2 days at least. The patient denies having any other problems or concerns at this time. Family History Father Heart disease Medical History Pain (Acute) Tobacco dependence in remission (Chronic) Pulmonary nodule, left (Chronic) History of laryngeal cancer (Chronic) Non-small cell carcinoma of left lung, stage 3 (Chronic) Dysphagia (Chronic) Chronic anemia (Chronic) Atrial fibrillation and flutter (Chronic) Pleural effusion (Chronic) Chemotherapy management, encounter for (Chronic) Anemia (Acute) Chicken pox (Acute) Dysphagia (Acute) Hypernatremia (Acute) Hyponatremia (Acute) Hypothyroidism (Acute) Laryngeal cancer (Acute) Lymphadenitis (Acute) Measles (Acute) Mumps (Acute) Surgical History PEG (percutaneous endoscopic gastrostomy) status (Chronic) Status post insertion of percutaneous endoscopic gastrostomy (PEG) tube (Chronic) port placement (Chronic) History of hernia repair (Resolved) History of thoracentesis (Resolved) LEFT WRIST SURGERY (Resolved) Social History - Tobacco Smoking Status Former smoker Social History - Living Arrangements Patients Living Arrangements Alone Home Medications Medication Instructions Recorded Albuterol IH (ProAir) [Proair Hfa] 2 puff INHALATION Q6H PRN #1 12/18/17 inhaler levothyroxine 150 mcg tablet 150 mcg GT DAILY tab 12/29/17 Clonazepam 0.5 mg GT Q8H PRN 01/12/18 Ferrous Sulfate 325 mg GT BIDCM 90 Days #180 tab 03/24/18 Diltiazem HCl 60 mg GT BID 04/06/18 Lactose-Reduced Food/Fiber 750 ml GT BID 04/06/18 [Isosource 1.5 Magno Liquid] Omeprazole [Prilosec] 20 mg GT DAILY 04/06/18 Oxycodone HCl/Acetaminophen 1 tab GT Q6H PRN 04/06/18 [Oxycodone-Acetaminophen 10-325] Allergy/AdvReac Type Severity Reaction Status Date / Time Iodinated Contrast- Oral and Allergy Mild Rash Verified 04/06/18 17:24 IV Dye [CT] I have reviewed the medical, surgical, and other pertinent history in details and have updated medication and allergy information in the electronic medical record. Review of Systems: A 12-point review of systems was completed and was negative except for what is noted in the HPI/Interval History and by the nurse. Height/Weight/BMI: Height: 5 ft 7 in Weight: 125 lbs (stable) Vital Signs Temperature 97.8 F 04/07/18 07:30 Temperature Source Oral 04/07/18 07:30 Pulse Rate 81 04/07/18 07:30 Pulse Strength Weak (1+) 04/07/18 07:16 Respiratory Rate 18 04/07/18 07:30 Respiratory Effort Non-Labored 04/06/18 17:50 Respiratory Pattern Normal 04/06/18 17:50 Blood Pressure 116/62 04/07/18 07:30 Blood Pressure Mean 80 04/07/18 07:30 Blood Pressure Source Monitor 04/07/18 07:30 Blood Pressure Position Supine 04/07/18 07:30 Blood Pressure Location Left Arm 04/07/18 07:30 Pulse Ox 99 04/07/18 07:30 Oxygen Delivery Method Room Air 04/07/18 07:30 Physical Exam: ECO KARNOFSKY SCORE: 70% CONSTITUTIONAL: Well-developed, well-nourished, and in no apparent distress. Examined while in hospital bed HEENT: No evidence of thrush or lesions within the visualized oropharynx or oral cavity. No trismus. Pupils are equal, round, and reactive to light and accommodation. Extraocular movements are intact. Sclerae are anicteric. NECK: Supple,with no thyromegaly, and non-tender. Trachea midline. No cervical or supraclavicular adenopathy noted. CARDIAC: Regular rate and rhythm. Normal S1, S2. No murmurs, rubs, or gallops. PULMONARY/CHEST: Lungs are clear to auscultation and percussion bilaterally. No wheezes, rhonchi, or crackles noted. No increased work of breathing. ABDOMINAL: Abdomen soft, non-tender, non-distended. PEG tube in place without abnormality. No hepatomegaly. Normoactive bowel sounds in all four quadrants. No guarding, rebound. BACK: Straight and aligned. No CVA tenderness. Axial skeleton non-tender to percussion. EXTREMITIES: Full range of motion in all four extremities, with normal strength equally and symmetrically. No evidence of edema. No clubbing. NEUROLOGICAL EXAM: Alert and oriented x 3. Cranial nerves II through XII are grossly intact. No focal neurological deficit. Speech is fluent. There is no upper or lower extremity sensory deficit or motor deficit. Muscle strength is 5/5 in all muscle groups. Gait not tested. Finger to nose slower with the left hand but no dysmetria noted PSYCHIATRIC: Appropriate mood and affect for the clinical situation. 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 Unfortunately due to treatment delays the lung cancer appears to have progressed and caused complete collapse of the left lung romeo and interventional pulmonology was unable to place stent. From 11/25/17 - 01/12/18: Patient received definitive chemoradiation therapy to the left lung and hilar disease consisting of 6000 cGy in 30 fractions. I reviewed the findings of the CT brain and MRI brain with the patient and his family. Specifically this demonstrates evidence for 3 metastatic lesions, one measuring about 2 cm in the right parietal lobe, one measuring 2.5-3 cm in the right parieto-occipital lobe, and one measuring approximately 1 cm in the right cerebellar hemisphere, there is a fairly large amount of associated edema. In terms of his symptoms he appears to have had a focal seizure twice and has had weakness in the left hand as well as nausea and vomiting, his symptoms appear to have completely stabilized since initiating Decadron yesterday. I reviewed with the patient that the most likely origin of these lesions is from metastatic non-small cell lung cancer given his recent completion of chemoradiation. I also discussed that there is no evidence of disease progression within the abdomen/pelvis but there will be needed CT of the chest to confirm there is no disease progression in this area. I had a detailed discussion with the patient and his family regarding the diagnosis and treatment of brain metastases. Specifically we discussed surgery and radiation therapy options and I explained that systemic therapy would not be appropriate to address these lesions. Given the small number of lesions and large size with symptoms I recommend that he have a neurosurgical evaluation for consideration of removal of the 2 larger lesions. If he is able to undergo surgical resection then I recommended he receive fractionated stereotactic radiation therapy to the resection cavity as well as likely radiosurgery to the small cerebellar lesion. In the event that he is unable to undergo surgical resection then I recommend that he receive fractionated stereotactic radiation therapy alone to the largest lesion and possibly he could receive radiosurgery to the remaining 2. I also had a brief discussion about whole brain radiation therapy but explained that this treatment is generally reserved for patients with multiple (usually greater than 10-15) brain metastases that cannot be treated with focal radiation or surgical resection. I briefly discussed and contrasted the potential toxicities to both focal radiation and whole brain radiation therapy. I explained that we do not have neurosurgical services at our hospital and that he will need to be transferred to a facility that can provide this evaluation. I also explained that we do not complete fractionated stereotactic radiation therapy to the brain or brain radiosurgery at our facility and therefore I would recommend that he have this treatment elsewhere. After discussion with the hospitalist, plan is for transfer depending on social work and insurance. I recommend continuing Decadron 4 mg 3 times daily, Keppra, and PPI for gastric prophylaxis. Thank you for allowing me to participate in the management and care of your patient. If I may answer any questions in the interim, please do not hesitate to contact me at any time. Vish Ruiz DO, Irrigation System Operator, Department of Radiation Oncology [facility]
--- NOTE | 2018-04-07 12:41 | PCM.CONS.GEN ---
Problem List (1) Seizure Status: Acute (2) Metastatic cancer to brain Status: Acute Reason for Consult Date of Consultation: 04/07/18 Reason for Consultation: seizure, brain mets History of Present Illness: The patient is a 62 year old CM with PMH H/O Laryngeal cancer s/p radiation/chemotherapy, H/O lung cancer s/p chemotherapy, radiation, Afib not on AC, S/P PEG placement, H/O tobacco abuse admitted with weakness and seizure. Per patient he had left arm cramping followed by incoordinated and rhythmic swinging movements of the left arm lasting for about 2-3 mins, without any loss of awareness, tongue bite or post ictal state, occurred about 2 times in the last week, left arm got stiff during the event per patient, but denies any GTCs or staring off episodes. Documentation of possible left arm weakness since the events. MRI brain done during this admission showed mets to the right frontal, right occipital and right cerebellum with vasogenic edema and mass effect. Patient has been started on Decadron and Keppra. At present denies any JOHNS, visual disturbances, new onset focal motor weakness, sensory loss or speech disturbances. He lives alone, does drive, denies any falls, does not use cane or walker to ambulate, does not need any assistance for his ADLs. He used to smoke about 2 PPD for many years but quit about 3 yrs ago after being diagnosed with laryngeal cancer. [] Past Medical History Past Medical History (Chronic Problems): Chronic Problems (Last Reviewed 03/12/18 @ 09:24 by Jania Vallejo) PEG (percutaneous endoscopic gastrostomy) status (Chronic) Tobacco dependence in remission (Chronic) Pulmonary nodule, left (Chronic) History of laryngeal cancer (Chronic) Non-small cell carcinoma of left lung, stage 3 (Chronic) Dysphagia (Chronic) Chronic anemia (Chronic) Atrial fibrillation and flutter (Chronic) Pleural effusion (Chronic) Chemotherapy management, encounter for (Chronic) Medical History: Medical History (Last Reviewed 03/12/18 @ 09:24 by Jania Vallejo) Pain (Acute) R52 Tobacco dependence in remission (Chronic) F17.201 Pulmonary nodule, left (Chronic) R91.1 History of laryngeal cancer (Chronic) Z85.21 Non-small cell carcinoma of left lung, stage 3 (Chronic) C34.92 Dysphagia (Chronic) R13.10 Chronic anemia (Chronic) D64.9 Atrial fibrillation and flutter (Chronic) I48.91, I48.92 Pleural effusion (Chronic) J90 Chemotherapy management, encounter for (Chronic) Z51.11 Anemia D64.9 Chicken pox B01.9 Dysphagia R13.10 Hypernatremia E87.0 Hyponatremia E87.1 Hypothyroidism E03.9 Laryngeal cancer C32.9 Lymphadenitis I88.9 Measles B05.9 Mumps B26.9 Allergies Iodinated Contrast- Oral and IV Dye [CT] Allergy (Mild, Verified 04/06/18 17:24) Rash Home Medications: Ambulatory Orders Medication Instructions Recorded Albuterol IH (ProAir) [Proair Hfa] 2 puff INHALATION Q6H PRN #1 12/18/17 inhaler levothyroxine 150 mcg tablet 150 mcg GT DAILY tab 18 Clonazepam 0.5 mg GT Q8H PRN 18 Ferrous Sulfate 325 mg GT BIDCM 90 Days #180 tab 03/24/18 Diltiazem HCl 60 mg GT BID 18 Lactose-Reduced Food/Fiber 750 ml GT BID 04/06/18 [Isosource 1.5 Magno Liquid] Omeprazole [Prilosec] 20 mg GT DAILY 18 Oxycodone HCl/Acetaminophen 1 tab GT Q6H PRN 04/06/18 [Oxycodone-Acetaminophen 10-325] Surgical History: Surgical History (Last Reviewed 03/12/18 @ 09:24 by Jania Vallejo) PEG (percutaneous endoscopic gastrostomy) status (Chronic) Z93.1 Status post insertion of percutaneous endoscopic gastrostomy (PEG) tube Z93.1 port placement History of hernia repair Z98.890, Z87.19 History of thoracentesis Z98.890 LEFT WRIST SURGERY Surgical History: herniorrhaphy, - - PEG tube placement. Psychiatric History: Anxiety Smoking Status: Former smoker Alcohol: None Drugs: None - *Family History Paternal Family History: Family History (Last Reviewed 03/12/18 @ 09:24 by Jania Vallejo) Father Heart disease History Items: Heart Disease - Maternal Family History: Family History (Last Reviewed 03/12/18 @ 09:24 by Jania Vallejo) Father Heart disease History Items: No pertinent history Review of Systems Constitutional: Reports: - - complete ROS negative except as documented in HPI Patient Problems: Active and Suspected Problems (Last Reviewed 03/12/18 @ 09:24 by Jania Vallejo) Weakness (Acute) Seizure (Acute) Brain cancer (Acute) Metastatic cancer to brain (Acute) - Physical Exam General: Alert HEENT: Normocephalic Neck: Supple Lungs: Normal air movement Cardiovascular: Normal S1, Normal S2 Abdomen: Bowel Sounds Present Extremities: No cyanosis Neurological: - - consious, alert, AoA x3, CN 2-12 grossly intact, power 5/5 right UE/LE, left UE -5/5 and left LE 5/5, no sensory loss, no cerebellar signs, Reflexes + B/L B/S/T/K/A, is cachectic, gait deferred. Psych/Mental Status: Normal Affect Vital Signs Temp Pulse Resp BP Pulse Ox 97.8 F 81 18 116/62 99 04/07/18 07:30 04/07/18 07:30 04/07/18 07:30 04/07/18 07:30 04/07/18 07:30 Oxygen Delivery Method Room Air Weight: 56.7 kg Body Mass Index (BMI) 19.5 Intake and Output for Last 24 Hours 04/05/18 04/06/18 04/07/18 23:59 23:59 23:59 Intake Total 1275 / 1275 Output Total 450 / 450 Balance 825 / 825 Laboratory Tests Past 24 Hrs 04/06/18 04/06/18 04/06/18 18:10 18:10 18:10 WBC 4.7 RBC 2.20 L Hgb 7.7 L Hct 24.8 L MCV 112.7 H MCH 35.0 H MCHC 31.0 L RDW 20.4 H RDW Differential 79.4 H Plt Count 437 MPV 8.3 Immature Gran % (Auto) JUMP IRON MACHINE PRESSER Neut % (Auto) JUMP IRON MACHINE PRESSER Lymph % (Auto) JUMP IRON MACHINE PRESSER [place] % (Auto) JUMP IRON MACHINE PRESSER Eos % (Auto) JUMP IRON MACHINE PRESSER Baso % (Auto) JUMP IRON MACHINE PRESSER Absolute Neuts (auto) 4.0 Absolute Lymphs (auto) 0.05 L Total Counted 100 Neutrophils % (Manual) 67 Band Neutrophils % 18 H Lymphocytes % (Manual) 1 L Monocytes % (Manual) 13 H Metamyelocytes % 1 Differential Comment Diff Path Review Reviewed Polychromasia RARE Hypochromasia Anisocytosis 2+ Macrocytosis PT 14.0 INR 1.1 APTT 41.6 H Sodium 136 Potassium 3.6 Chloride 101 Carbon Dioxide 30.0 Anion Gap 5 BUN 16 Creatinine 0.94 Estim Creat Clear Calc 67.54 Est GFR (MDRD) Af Amer 105 Est GFR (MDRD) Non-Af 87 BUN/Creatinine Ratio 17.1 Glucose 82 Calcium 8.1 L Total Bilirubin 0.40 Direct Bilirubin 0.17 AST 12 L ALT 14 L Alkaline Phosphatase 69 Troponin I < 0.015 Total Protein 6.1 L Albumin 3.0 L Globulin 3.1 04/07/18 04/07/18 04:28 04:28 WBC 3.2 L RBC 2.32 L Hgb 8.2 L Hct 26.3 L MCV 113.4 H MCH 35.3 H MCHC 31.2 L RDW 19.9 H RDW Differential 78.9 H Plt Count 405 MPV 8.2 Immature Gran % (Auto) 0.600 Neut % (Auto) 94.0 H Lymph % (Auto) 4.1 L [place] % (Auto) 1.3 Eos % (Auto) 0.0 Baso % (Auto) 0.0 Absolute Neuts (auto) 3.0 Absolute Lymphs (auto) 0.13 L Total Counted Not Reportable Neutrophils % (Manual) Band Neutrophils % Lymphocytes % (Manual) Monocytes % (Manual) Metamyelocytes % Differential Comment SCAN Diff Path Review Polychromasia 1+ Hypochromasia 1+ Anisocytosis 1+ Macrocytosis 1+ PT INR APTT Sodium 139 Potassium 4.5 Chloride 100 Carbon Dioxide 26.0 Anion Gap 13 BUN 21 H Creatinine 1.11 Estim Creat Clear Calc 55.34 Est GFR (MDRD) Af Amer 86 Est GFR (MDRD) Non-Af 71 BUN/Creatinine Ratio 18.9 Glucose 128 H Calcium 8.9 Total Bilirubin Direct Bilirubin AST ALT Alkaline Phosphatase Troponin I Total Protein Albumin Globulin Assessment/Plan All Active Problems (Last Reviewed 03/12/18 @ 09:24 by Jania Vallejo) Weakness (Acute) Seizure (Acute) Brain cancer (Acute) Metastatic cancer to brain (Acute) Constipation (Acute) Pancytopenia (Acute) Abdominal pain (Acute) Pain (Acute) The patient is a 62 year old CM with PMH H/O Laryngeal cancer s/p radiation/chemotherapy, H/O lung cancer s/p chemotherapy, radiation, Afib not on AC, S/P PEG placement, H/O tobacco abuse admitted with weakness and seizure. Per patient he had left arm cramping followed by incoordinated and rhythmic swinging movements of the left arm lasting for about 2-3 mins, without any loss of awareness, tongue bite or post ictal state, occurred about 2 times in the last week, left arm got stiff during the event per patient, but denies any GTCs or staring off episodes. Documentation of possible left arm weakness since the events. MRI brain done during this admission showed mets to the right frontal, right occipital and right cerebellum with vasogenic edema and mass effect. Patient has been started on Decadron and Keppra. At present denies any JOHNS, visual disturbances, new onset focal motor weakness, sensory loss or speech disturbances. He lives alone, does drive, denies any falls, does not use cane or walker to ambulate, does not need any assistance for his ADLs. He used to smoke about 2 PPD for many years but quit about 3 yrs ago after being diagnosed with laryngeal cancer. Impression Metastatic cancer to the brain Simple partial seizures Plan -MRI brain reviewed -Keppra 750 mg BID -Increase Decadron to 4 mg IV q 6 hrly -Check EEG -Neurosurgery consult SAMANTHA -Labs reviewed -seizure precautions discussed in detail, avoid climbing at heights, avoid working with any sharp objects, avoid swimming alone, use shower to bathe instead of bath tub -No driving for 6 months from last seizure event -Afib management and AC decision per primary team and cardiology -Further medical and cancer management per primary team and oncology -Fall precautions -GI/DVT prophylaxis -PT/OT -Please call with questions if any -Follow up with Neurology as outpatient in 4 weeks -Thank you for allowing us to participate in patient's care and management Code Visit Inpatient E&M: [id number] Init Hosp L3
--- NOTE | 2018-04-07 13:24 | PN_ITS ---
<Robbi Pathak - Last Filed: 04/07/18 13:15> Patient Problems: Active and Suspected Problems (Last Reviewed 03/12/18 @ 09:24 by Jania Vallejo) Weakness (Acute) Seizure (Acute) Brain cancer (Acute) Metastatic cancer to brain (Acute) Subjective: Pt had left upper extremity muscle spasms. No other extremity involved. None since admission. No JOHNS, dizziness, LH, double vision, focal weakness. No CP/SOB. Wants transferred for surgery. - Physical Exam General: Alert, Oriented x3, Cooperative HEENT: Atraumatic, PERRLA, EOMI, Normocephalic Neck: Supple, No JVD, Negative Carotid Bruits Lungs: Clear to auscultation, Normal air movement Cardiovascular: Regular rate, No murmurs Abdomen: Bowel Sounds Present, Soft, Non Tender Extremities: No edema, Capillary Refill Less than 3 Seconds Skin: No rashes, No breakdown Musculoskeletal: No Tenderness to Palpation of Joints or Extremities Neurological: Cranial nerves II-XII grossly intact Psych/Mental Status: Normal Affect, Appropriate, Alert and oriented to time, place, person, mood and affect Vital Signs Temp Pulse Resp BP Pulse Ox 97.8 F 81 18 116/62 99 04/07/18 07:30 04/07/18 07:30 04/07/18 07:30 04/07/18 07:30 04/07/18 07:30 Oxygen Delivery Method Room Air Weight: 125 lb 0.034 oz Body Mass Index (BMI) 19.5 Intake and Output for Last 24 Hours 04/05/18 04/06/18 04/07/18 23:59 23:59 23:59 Intake Total 1275 / 1275 Output Total 450 / 450 Balance 825 / 825 Laboratory Tests Past 24 Hrs 04/06/18 04/06/18 04/06/18 18:10 18:10 18:10 WBC 4.7 RBC 2.20 L Hgb 7.7 L Hct 24.8 L MCV 112.7 H MCH 35.0 H MCHC 31.0 L RDW 20.4 H RDW Differential 79.4 H Plt Count 437 MPV 8.3 Immature Gran % (Auto) LITHOGRAPHIC PROOFER APPRENTICE Neut % (Auto) LITHOGRAPHIC PROOFER APPRENTICE Lymph % (Auto) LITHOGRAPHIC PROOFER APPRENTICE [place] % (Auto) LITHOGRAPHIC PROOFER APPRENTICE Eos % (Auto) LITHOGRAPHIC PROOFER APPRENTICE Baso % (Auto) LITHOGRAPHIC PROOFER APPRENTICE Absolute Neuts (auto) 4.0 Absolute Lymphs (auto) 0.05 L Total Counted 100 Neutrophils % (Manual) 67 Band Neutrophils % 18 H Lymphocytes % (Manual) 1 L Monocytes % (Manual) 13 H Metamyelocytes % 1 Differential Comment Diff Path Review Reviewed Polychromasia RARE Hypochromasia Anisocytosis 2+ Macrocytosis PT 14.0 INR 1.1 APTT 41.6 H Sodium 136 Potassium 3.6 Chloride 101 Carbon Dioxide 30.0 Anion Gap 5 BUN 16 Creatinine 0.94 Estim Creat Clear Calc 67.54 Est GFR (MDRD) Af Amer 105 Est GFR (MDRD) Non-Af 87 BUN/Creatinine Ratio 17.1 Glucose 82 Calcium 8.1 L Total Bilirubin 0.40 Direct Bilirubin 0.17 AST 12 L ALT 14 L Alkaline Phosphatase 69 Troponin I < 0.015 Total Protein 6.1 L Albumin 3.0 L Globulin 3.1 04/07/18 04/07/18 04:28 04:28 WBC 3.2 L RBC 2.32 L Hgb 8.2 L Hct 26.3 L MCV 113.4 H MCH 35.3 H MCHC 31.2 L RDW 19.9 H RDW Differential 78.9 H Plt Count 405 MPV 8.2 Immature Gran % (Auto) 0.600 Neut % (Auto) 94.0 H Lymph % (Auto) 4.1 L [place] % (Auto) 1.3 Eos % (Auto) 0.0 Baso % (Auto) 0.0 Absolute Neuts (auto) 3.0 Absolute Lymphs (auto) 0.13 L Total Counted Not Reportable Neutrophils % (Manual) Band Neutrophils % Lymphocytes % (Manual) Monocytes % (Manual) Metamyelocytes % Differential Comment SCAN Diff Path Review Polychromasia 1+ Hypochromasia 1+ Anisocytosis 1+ Macrocytosis 1+ PT INR APTT Sodium 139 Potassium 4.5 Chloride 100 Carbon Dioxide 26.0 Anion Gap 13 BUN 21 H Creatinine 1.11 Estim Creat Clear Calc 55.34 Est GFR (MDRD) Af Amer 86 Est GFR (MDRD) Non-Af 71 BUN/Creatinine Ratio 18.9 Glucose 128 H Calcium 8.9 Total Bilirubin Direct Bilirubin AST ALT Alkaline Phosphatase Troponin I Total Protein Albumin Globulin Medical Necessity - Tobacco Use Smoking Status: Former smoker Assessment/Plan All Active Problems (Last Reviewed 03/12/18 @ 09:24 by Jania Scanlon Weakness (Acute) Seizure (Acute) Brain cancer (Acute) Metastatic cancer to brain (Acute) Constipation (Acute) Pancytopenia (Acute) Abdominal pain (Acute) Pain (Acute) 1. New onset seizure 2/2 newly found brain mets - neuro following. Continue Keppra 2. 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 Leigh/Carri - oncology following. 3 mets including cerebellum, at risk of herniating. Pt desires neurosurgical eval - cant go to [facility] due to insurance, waiting to hear from [facility]. Continue Decadron. Needs surgery and focal radiation. Last radiation therapy 12/2017, last chemo 02/2018. Hx of tobacco abuse. 3. Chronic Anemia - improved 4. Hx Afib - rate controlled. Cardizem. Not on OAC. 5. Hypothyroid - synthroid 6. PEG tube - continue prior feedings. 300 cc isosource 1.5 3x/day with 60cc flush H2O. Titrate up to home dose 6x per day for goal 2700 calories 122.4 g prot, 2094 cc free fluid daily per machine pack assembler notes. Note rec change to Jevity 1.5 30cc/hr with 80cc water flush q 40 hours for 1080 calories 46 g protein and 1027 cc free fluid, increase by 10cc q 8-12 hrs until goal of 60 cc/hr with 175 cc h20 flush for 2160 kiley, 92 g prot, 2144 cc free fluid daily. DVT ppx: lovenox DC planning: transfer for neurosurgery. This patient was seen by Robbi Pathak PA-C under the supervision of Dr. France. <Liam France - Last Filed: 04/07/18 15:03> Subjective: Seen and examined Patient has history of laryngeal cancer status post chemoradiation, completed last cycle of treatment about 1-[address] Leigh. Laryngeal cancer metastasized to left lung, non-small cell carcinoma. The patient was admitted with nausea vomiting about 5 days ago and then about 3 days ago he had 3 minutes of seizure-like activity of left hand with weakness and numbness. Yesterday he again had weakness and numbness and seizure-like activity which she could not control. He denies loss of consciousness, loss of vision/field vision, diplopia or fall. The patient was also seen by radiation oncologist, Vish Gutierrez. - Physical Exam General: Alert, Oriented x3, Cooperative, - - Severe malnutrition, looks like cancer cachexia HEENT: Atraumatic, PERRLA, EOMI, Normocephalic Neck: Supple, No JVD, Negative Carotid Bruits Lungs: Clear to auscultation, Normal air movement, No rhonchi, No wheeze, No rales Cardiovascular: Regular rate, Regular Rhythm, Normal S1, Normal S2, No murmurs Abdomen: Bowel Sounds Present, Soft, Non Tender, - - PEG tube present Extremities: No edema, Capillary Refill Less than 3 Seconds Skin: No rashes, No breakdown Musculoskeletal: No Tenderness to Palpation of Joints or Extremities, Arthritic Changes, Muscle Wasting Neurological: Cranial nerves II-XII grossly intact, Deep Tendon Reflexes 2+/4 and Symmetrical, Neuro grossly intact, - - Gross muscle strength 5/ 5 at major joints but diffuse decreased muscle bulk in extremities. Intact field of vision. No diplopia. Extraocular muscles intact. Gross sensation intact in both upper extremities and symmetrical Psych/Mental Status: Normal Affect, Appropriate Vital Signs Temp Pulse Resp BP Pulse Ox 98.6 F 76 18 110/59 L 97 04/07/18 13:30 04/07/18 13:30 04/07/18 13:30 04/07/18 13:30 04/07/18 13:30 Oxygen Delivery Method Room Air Weight: 125 lb 0.034 oz Body Mass Index (BMI) 19.5 Intake and Output for Last 24 Hours 04/05/18 04/06/18 04/07/18 23:59 23:59 23:59 Intake Total 2642 / 2642 Output Total 900 / 900 Balance 1742 / 1742 Laboratory Tests Past 24 Hrs 04/06/18 04/06/18 04/06/18 18:10 18:10 18:10 WBC 4.7 RBC 2.20 L Hgb 7.7 L Hct 24.8 L MCV 112.7 H MCH 35.0 H MCHC 31.0 L RDW 20.4 H RDW Differential 79.4 H Plt Count 437 MPV 8.3 Immature Gran % (Auto) LITHOGRAPHIC PROOFER APPRENTICE Neut % (Auto) LITHOGRAPHIC PROOFER APPRENTICE Lymph % (Auto) LITHOGRAPHIC PROOFER APPRENTICE [place] % (Auto) LITHOGRAPHIC PROOFER APPRENTICE Eos % (Auto) LITHOGRAPHIC PROOFER APPRENTICE Baso % (Auto) LITHOGRAPHIC PROOFER APPRENTICE Absolute Neuts (auto) 4.0 Absolute Lymphs (auto) 0.05 L Total Counted 100 Neutrophils % (Manual) 67 Band Neutrophils % 18 H Lymphocytes % (Manual) 1 L Monocytes % (Manual) 13 H Metamyelocytes % 1 Differential Comment Diff Path Review Reviewed Polychromasia RARE Hypochromasia Anisocytosis 2+ Macrocytosis PT 14.0 INR 1.1 APTT 41.6 H Sodium 136 Potassium 3.6 Chloride 101 Carbon Dioxide 30.0 Anion Gap 5 BUN 16 Creatinine 0.94 Estim Creat Clear Calc 67.54 Est GFR (MDRD) Af Amer 105 Est GFR (MDRD) Non-Af 87 BUN/Creatinine Ratio 17.1 Glucose 82 Calcium 8.1 L Total Bilirubin 0.40 Direct Bilirubin 0.17 AST 12 L ALT 14 L Alkaline Phosphatase 69 Troponin I < 0.015 Total Protein 6.1 L Albumin 3.0 L Globulin 3.1 04/07/18 04/07/18 04:28 04:28 WBC 3.2 L RBC 2.32 L Hgb 8.2 L Hct 26.3 L MCV 113.4 H MCH 35.3 H MCHC 31.2 L RDW 19.9 H RDW Differential 78.9 H Plt Count 405 MPV 8.2 Immature Gran % (Auto) 0.600 Neut % (Auto) 94.0 H Lymph % (Auto) 4.1 L [place] % (Auto) 1.3 Eos % (Auto) 0.0 Baso % (Auto) 0.0 Absolute Neuts (auto) 3.0 Absolute Lymphs (auto) 0.13 L Total Counted Not Reportable Neutrophils % (Manual) Band Neutrophils % Lymphocytes % (Manual) Monocytes % (Manual) Metamyelocytes % Differential Comment SCAN Diff Path Review Polychromasia 1+ Hypochromasia 1+ Anisocytosis 1+ Macrocytosis 1+ PT INR APTT Sodium 139 Potassium 4.5 Chloride 100 Carbon Dioxide 26.0 Anion Gap 13 BUN 21 H Creatinine 1.11 Estim Creat Clear Calc 55.34 Est GFR (MDRD) Af Amer 86 Est GFR (MDRD) Non-Af 71 BUN/Creatinine Ratio 18.9 Glucose 128 H Calcium 8.9 Total Bilirubin Direct Bilirubin AST ALT Alkaline Phosphatase Troponin I Total Protein Albumin Globulin Assessment/Plan This patient was seen in conjunction with Robbi GUTHRIE. I have independently interviewed and examined the patient and reviewed pertinent history, examination findings, laboratory and plan of management. I have reviewed the note and agree with the documented findings with the few additional points. In brief, patient is admitted for new onset seizure secondary to 3 ring- enhancing lesions found on brain with significant vasogenic edema and midline shift. Patient had CT scan brain and then MRI brain was done. MRI brain shows right frontal, right occipital and right cerebellum ring-enhancing lesions with significant vasogenic edema and midline shift. Patient was started on IV Decadron and Keppra. Seen by neurologist. As the patient needs neurosurgical consult and further management for increased intracranial pressure, this was discussed with the patient son and [id number] present in the room. Further patient was transferred to [facility]. Patient is at risk of tonsillar herniation secondary to increased ICP. I have discussed my assessment with Robbi GUTHRIE and orders have been reviewed. Code Visit Inpatient E&M: [id number] Subs Hosp L3
[2018-04-07 13:30] VITALS: BP 110/59; PULSE 76; RESP 18; TEMP 37; O2SAT 97
--- NOTE | 2018-04-07 14:30 | PCM.DC.SUM ---
<Robbi Pathak - Last Filed: 04/07/18 14:48> Discharge Date and Diagnosis - Problem List Patient Problems: Active and Suspected Problems (Last Reviewed 03/12/18 @ 09:24 by Jania Vallejo) Weakness (Acute) Seizure (Acute) Brain cancer (Acute) Metastatic cancer to brain (Acute) Date of Admission: 04/06/18 Date of Discharge: 04/07/18 - Primary Discharge Diagnosis Active and Suspected Problems (Last Reviewed 03/12/18 @ 09:24 by Jania Vallejo) New onset simple partial seizure 2/2 newly found brain mets 2/2 squamous cell lung cancer, hx of laryngeal cancer Anemia of chronic disease Hx Afib Hx Hypothyroidism PEG tube in place Hx nicotine abuse - Secondary Discharge Diagnosis Chronic Problems (Last Reviewed 03/12/18 @ 09:24 by Jania Vallejo) PEG (percutaneous endoscopic gastrostomy) status (Chronic) Tobacco dependence in remission (Chronic) Pulmonary nodule, left (Chronic) History of laryngeal cancer (Chronic) Non-small cell carcinoma of left lung, stage 3 (Chronic) Dysphagia (Chronic) Chronic anemia (Chronic) Atrial fibrillation and flutter (Chronic) Pleural effusion (Chronic) Chemotherapy management, encounter for (Chronic) Hospital Course and Treatment Imaging Results: CT/Abdomen/Pelvis without Cont IMPRESSION: 1. Trace pericardial effusion. This is new in the interval. 2. Borderline splenomegaly. 3. Stable 3.2 cm cyst of the left kidney. 4. A PEG tube is present in the stomach. 5. There is a large amount of colonic stool. 6. There is no evidence of free intra-abdominal or intrapelvic air or fluid. CT/Brain/Head W/WO Contrast IMPRESSION: Right occipital and parietal lobe rim enhancing lesions with associated white matter edema and midline shift toward the left. Findings are consistent with metastatic disease. There is no evidence of acute infarct or intracranial hemorrhage. MRI/Brain W/WO Contrast IMPRESSION: 3 ring-enhancing brain masses are now present, located in the right frontal lobe, right temporo-occipital region, and right cerebellar hemisphere. Signal characteristics are most compatible with metastatic disease. No infarcts or hemorrhages are seen. Consults: Sara - Rad/Onc Jodie - Neurology Operations: None Procedures: None Summary of Care Provided: Hospital Course: The patient is a 62 year old M with pmhx of laryngeal ca in remission, squamous cell lung cancer pt of Dr. Liegh/Sara last chemo 03/05 last rads 01/03, with PEG tube for feeding in place, also with hx of Afib, hypothyroidism, who presented to the ER with c/o seizure described as his left arm and hand ney and shaking uncontrollably up and down with fist clenching for several minutes. He also had some nausea and vomiting. He had a CT of the brain in the ER and was found to have ring enhancing lesions and a midline shift. He was admitted to the [facility] for new onset simple partial seizure 2/2 mets with oncology and neuro consulted. He was placed on IV keppra and had no further seizure activity. He was placed on decadron as well. He had no issues after admission. An MRI of the brain w and w/o contrast was obtained showing 3 ring enhancing lesions located in the right frontal lobe, right temporo-occipital region, and right cerebellar hemisphere. Oncology and Neurology agreed that he needed seen by a neurosurgeon and would need surgery and focal radiation therapy. He was accepted at [facility] under the care of Dr. Arguello. He was discharged to [facility] in stable condition. Also of note in the ER a CT abd/pelvis was obtained which with nonconcerning results as above. This patient was seen by Robbi Pathak PA-C under the supervision of Dr. France. [] Patient Problems: Active and Suspected Problems (Last Reviewed 03/12/18 @ 09:24 by Jania Vallejo) Weakness (Acute) Seizure (Acute) Brain cancer (Acute) Metastatic cancer to brain (Acute) - Physical Exam General: Alert, Oriented x3, Cooperative HEENT: Atraumatic, PERRLA, EOMI, Normocephalic Neck: Supple, No JVD, Negative Carotid Bruits Lungs: Clear to auscultation, Normal air movement Cardiovascular: Regular rate, No murmurs Abdomen: Bowel Sounds Present, Soft, Non Tender Extremities: No edema, Capillary Refill Less than 3 Seconds Skin: No rashes, No breakdown Musculoskeletal: No Tenderness to Palpation of Joints or Extremities Neurological: Cranial nerves II-XII grossly intact Psych/Mental Status: Normal Affect, Appropriate, Alert and oriented to time, place, person, mood and affect Vital Signs Temp Pulse Resp BP Pulse Ox 98.6 F 76 18 110/59 L 97 04/07/18 13:30 04/07/18 13:30 04/07/18 13:30 04/07/18 13:30 04/07/18 13:30 Oxygen Delivery Method Room Air Weight: 125 lb 0.034 oz Body Mass Index (BMI) 19.5 Intake and Output for Last 24 Hours 04/05/18 04/06/18 04/07/18 23:59 23:59 23:59 Intake Total 2642 / 2642 Output Total 900 / 900 Balance 1742 / 1742 Laboratory Tests Past 24 Hrs 04/06/18 04/06/18 04/06/18 18:10 18:10 18:10 WBC 4.7 RBC 2.20 L Hgb 7.7 L Hct 24.8 L MCV 112.7 H MCH 35.0 H MCHC 31.0 L RDW 20.4 H RDW Differential 79.4 H Plt Count 437 MPV 8.3 Immature Gran % (Auto) [place] Neut % (Auto) [place] Lymph % (Auto) [place] Swain % (Auto) [place] Eos % (Auto) [place] Baso % (Auto) [place] Absolute Neuts (auto) 4.0 Absolute Lymphs (auto) 0.05 L Total Counted 100 Neutrophils % (Manual) 67 Band Neutrophils % 18 H Lymphocytes % (Manual) 1 L Monocytes % (Manual) 13 H Metamyelocytes % 1 Differential Comment Diff Path Review Reviewed Polychromasia RARE Hypochromasia Anisocytosis 2+ Macrocytosis PT 14.0 INR 1.1 APTT 41.6 H Sodium 136 Potassium 3.6 Chloride 101 Carbon Dioxide 30.0 Anion Gap 5 BUN 16 Creatinine 0.94 Estim Creat Clear Calc 67.54 Est GFR (MDRD) Af Amer 105 Est GFR (MDRD) Non-Af 87 BUN/Creatinine Ratio 17.1 Glucose 82 Calcium 8.1 L Total Bilirubin 0.40 Direct Bilirubin 0.17 AST 12 L ALT 14 L Alkaline Phosphatase 69 Troponin I < 0.015 Total Protein 6.1 L Albumin 3.0 L Globulin 3.1 04/07/18 04/07/18 04:28 04:28 WBC 3.2 L RBC 2.32 L Hgb 8.2 L Hct 26.3 L MCV 113.4 H MCH 35.3 H MCHC 31.2 L RDW 19.9 H RDW Differential 78.9 H Plt Count 405 MPV 8.2 Immature Gran % (Auto) 0.600 Neut % (Auto) 94.0 H Lymph % (Auto) 4.1 L Swain % (Auto) 1.3 Eos % (Auto) 0.0 Baso % (Auto) 0.0 Absolute Neuts (auto) 3.0 Absolute Lymphs (auto) 0.13 L Total Counted Not Reportable Neutrophils % (Manual) Band Neutrophils % Lymphocytes % (Manual) Monocytes % (Manual) Metamyelocytes % Differential Comment SCAN Diff Path Review Polychromasia 1+ Hypochromasia 1+ Anisocytosis 1+ Macrocytosis 1+ PT INR APTT Sodium 139 Potassium 4.5 Chloride 100 Carbon Dioxide 26.0 Anion Gap 13 BUN 21 H Creatinine 1.11 Estim Creat Clear Calc 55.34 Est GFR (MDRD) Af Amer 86 Est GFR (MDRD) Non-Af 71 BUN/Creatinine Ratio 18.9 Glucose 128 H Calcium 8.9 Total Bilirubin Direct Bilirubin AST ALT Alkaline Phosphatase Troponin I Total Protein Albumin Globulin Discharge Diet: - - PEG feedings as directed by rug receiving clerk: Rec start trophic feeds of Jevity 1.5 via PEG at 30cc/hour w/ 80cc H2O flush every 4 hours to provide 1080 calories, 46 g protein, and 1027cc free fluid/day. If pt tolerates tube feedings, would increase rate by 10cc every 8 to 12 hours as tolerated until goal rate of 60cc/hour w/ 175cc H2O flush to provide 2160 calories, 92 g protein, and 2144cc free fluid/day. Discharge Activity: Return to Normal Activity Home Medications: Medications to take at Discharge Albuterol IH (ProAir) [Proair Hfa] 2 puff INHALATION Q6H PRN #1 inhaler 12/18/17 levothyroxine 150 mcg tablet 150 mcg GT DAILY tab 12/29/17 Clonazepam 0.5 mg GT Q8H PRN 01/12/18 Ferrous Sulfate 325 mg GT BIDCM 90 Days #180 tab 03/24/18 Diltiazem HCl 60 mg GT BID 04/06/18 Lactose-Reduced Food/Fiber [Isosource 1.5 Magno Liquid] 750 ml GT BID 04/06/18 Omeprazole [Prilosec] 20 mg GT DAILY 04/06/18 Oxycodone HCl/Acetaminophen [Oxycodone-Acetaminophen 10-325] 1 tab GT Q6H PRN 04/06/18 Primary Care Physician: Allison Sarmiento NP-C [Primary Care Provider] - Please follow up with your Primary Care Physician in: 2 weeks Additional Instructions: Further care as directed by [facility]. Disposition: Acute care Hospital Minutes spent on discharge:: 35 Patient Condition:: Stable Medical Necessity - Tobacco Use Smoking Status: Former smoker Meaningful Use Info Meaningful Use Diagnoses (Choose all that apply): None applicable <RománLiam - Last Filed: 04/07/18 15:05> Discharge Date and Diagnosis - Primary Discharge Diagnosis Active and Suspected Problems (Last Reviewed 03/12/18 @ 09:24 by Jania Vallejo) Weakness (Acute) Seizure (Acute) Brain cancer (Acute) Metastatic cancer to brain (Acute) - Secondary Discharge Diagnosis Chronic Problems (Last Reviewed 03/12/18 @ 09:24 by Jania Vallejo) PEG (percutaneous endoscopic gastrostomy) status (Chronic) Tobacco dependence in remission (Chronic) Pulmonary nodule, left (Chronic) History of laryngeal cancer (Chronic) Non-small cell carcinoma of left lung, stage 3 (Chronic) Dysphagia (Chronic) Chronic anemia (Chronic) Atrial fibrillation and flutter (Chronic) Pleural effusion (Chronic) Chemotherapy management, encounter for (Chronic) Hospital Course and Treatment Imaging Results: 04/07/18 07:22 Brain W/WO Contrast [MRI] Stat Summary of Care Provided: This patient was seen in conjunction with Robbi GUTHRIE. I have independently interviewed and examined the patient and reviewed pertinent history, examination findings, laboratory and plan of management. I have reviewed the note and agree with the documented findings with the few additional points. In brief, patient is admitted for new onset seizure secondary to 3 ring-enhancing lesions found on brain with significant vasogenic edema and midline shift. Patient had CT scan brain and then MRI brain was done. MRI brain shows right frontal, right occipital and right cerebellum ring-enhancing lesions with significant vasogenic edema and midline shift. Patient was started on IV Decadron and Keppra. Seen by neurologist. As the patient needs neurosurgical consult and further management for increased intracranial pressure, this was discussed with the patient son and [id number] present in the room.Patient is at risk of tonsillar herniation secondary to increased ICP. The patient is in the process of being transferred to [facility] under the care of Dr. Arguello. I have discussed my assessment with Robbi GUTHRIE and orders have been reviewed. [] Objective: Please see my progress note of today. - Physical Exam Vital Signs Temp Pulse Resp BP Pulse Ox 98.6 F 76 18 110/59 L 97 04/07/18 13:30 04/07/18 13:30 04/07/18 13:30 04/07/18 13:30 04/07/18 13:30 Oxygen Delivery Method Room Air Weight: 125 lb 0.034 oz Body Mass Index (BMI) 19.5 Intake and Output for Last 24 Hours 04/05/18 04/06/18 04/07/18 23:59 23:59 23:59 Intake Total 2642 / 2642 Output Total 900 / 900 Balance 1742 / 1742 Laboratory Tests Past 24 Hrs 04/06/18 04/06/18 04/06/18 18:10 18:10 18:10 WBC 4.7 RBC 2.20 L Hgb 7.7 L Hct 24.8 L MCV 112.7 H MCH 35.0 H MCHC 31.0 L RDW 20.4 H RDW Differential 79.4 H Plt Count 437 MPV 8.3 Immature Gran % (Auto) [place] Neut % (Auto) [place] Lymph % (Auto) [place] Swain % (Auto) [place] Eos % (Auto) [place] Baso % (Auto) [place] Absolute Neuts (auto) 4.0 Absolute Lymphs (auto) 0.05 L Total Counted 100 Neutrophils % (Manual) 67 Band Neutrophils % 18 H Lymphocytes % (Manual) 1 L Monocytes % (Manual) 13 H Metamyelocytes % 1 Differential Comment Diff Path Review Reviewed Polychromasia RARE Hypochromasia Anisocytosis 2+ Macrocytosis PT 14.0 INR 1.1 APTT 41.6 H Sodium 136 Potassium 3.6 Chloride 101 Carbon Dioxide 30.0 Anion Gap 5 BUN 16 Creatinine 0.94 Estim Creat Clear Calc 67.54 Est GFR (MDRD) Af Amer 105 Est GFR (MDRD) Non-Af 87 BUN/Creatinine Ratio 17.1 Glucose 82 Calcium 8.1 L Total Bilirubin 0.40 Direct Bilirubin 0.17 AST 12 L ALT 14 L Alkaline Phosphatase 69 Troponin I < 0.015 Total Protein 6.1 L Albumin 3.0 L Globulin 3.1 04/07/18 04/07/18 04:28 04:28 WBC 3.2 L RBC 2.32 L Hgb 8.2 L Hct 26.3 L MCV 113.4 H MCH 35.3 H MCHC 31.2 L RDW 19.9 H RDW Differential 78.9 H Plt Count 405 MPV 8.2 Immature Gran % (Auto) 0.600 Neut % (Auto) 94.0 H Lymph % (Auto) 4.1 L Swain % (Auto) 1.3 Eos % (Auto) 0.0 Baso % (Auto) 0.0 Absolute Neuts (auto) 3.0 Absolute Lymphs (auto) 0.13 L Total Counted Not Reportable Neutrophils % (Manual) Band Neutrophils % Lymphocytes % (Manual) Monocytes % (Manual) Metamyelocytes % Differential Comment SCAN Diff Path Review Polychromasia 1+ Hypochromasia 1+ Anisocytosis 1+ Macrocytosis 1+ PT INR APTT Sodium 139 Potassium 4.5 Chloride 100 Carbon Dioxide 26.0 Anion Gap 13 BUN 21 H Creatinine 1.11 Estim Creat Clear Calc 55.34 Est GFR (MDRD) Af Amer 86 Est GFR (MDRD) Non-Af 71 BUN/Creatinine Ratio 18.9 Glucose 128 H Calcium 8.9 Total Bilirubin Direct Bilirubin AST ALT Alkaline Phosphatase Troponin I Total Protein Albumin Globulin Code Visit Inpatient E&M: [id number] Disch Hosp
--- NOTE | 2018-04-07 14:33 | DS.PCM_ITS ---
<Robbi Pathak - Last Filed: 04/07/18 14:48> Discharge Date and Diagnosis - Problem List Patient Problems: Active and Suspected Problems (Last Reviewed 03/12/18 @ 09:24 by Jania Vallejo) Weakness (Acute) Seizure (Acute) Brain cancer (Acute) Metastatic cancer to brain (Acute) Date of Admission: 04/06/18 Date of Discharge: 04/07/18 - Primary Discharge Diagnosis Active and Suspected Problems (Last Reviewed 03/12/18 @ 09:24 by Jania Vallejo) New onset simple partial seizure 2/2 newly found brain mets 2/2 squamous cell lung cancer, hx of laryngeal cancer Anemia of chronic disease Hx Afib Hx Hypothyroidism PEG tube in place Hx nicotine abuse - Secondary Discharge Diagnosis Chronic Problems (Last Reviewed 03/12/18 @ 09:24 by Jania Vallejo) PEG (percutaneous endoscopic gastrostomy) status (Chronic) Tobacco dependence in remission (Chronic) Pulmonary nodule, left (Chronic) History of laryngeal cancer (Chronic) Non-small cell carcinoma of left lung, stage 3 (Chronic) Dysphagia (Chronic) Chronic anemia (Chronic) Atrial fibrillation and flutter (Chronic) Pleural effusion (Chronic) Chemotherapy management, encounter for (Chronic) Hospital Course and Treatment Imaging Results: CT/Abdomen/Pelvis without Cont IMPRESSION: 1. Trace pericardial effusion. This is new in the interval. 2. Borderline splenomegaly. 3. Stable 3.2 cm cyst of the left kidney. 4. A PEG tube is present in the stomach. 5. There is a large amount of colonic stool. 6. There is no evidence of free intra-abdominal or intrapelvic air or fluid. CT/Brain/Head W/WO Contrast IMPRESSION: Right occipital and parietal lobe rim enhancing lesions with associated white matter edema and midline shift toward the left. Findings are consistent with metastatic disease. There is no evidence of acute infarct or intracranial hemorrhage. MRI/Brain W/WO Contrast IMPRESSION: 3 ring-enhancing brain masses are now present, located in the right frontal lobe, right temporo-occipital region, and right cerebellar hemisphere. Signal characteristics are most compatible with metastatic disease. No infarcts or hemorrhages are seen. Consults: Sara - Rad/Onc Jodie - Neurology Operations: None Procedures: None Summary of Care Provided: Hospital Course: The patient is a 62 year old M with pmhx of laryngeal ca in remission, squamous cell lung cancer pt of Dr. Leigh/Sara last chemo 03/05 last rads 01/03, with PEG tube for feeding in place, also with hx of Afib, hypothyroidism, who presented to the ER with c/o seizure described as his left arm and hand ney and shaking uncontrollably up and down with fist clenching for several minutes. He also had some nausea and vomiting. He had a CT of the brain in the ER and was found to have ring enhancing lesions and a midline shift. He was admitted to the [facility] for new onset simple partial seizure 2/2 mets with oncology and neuro consulted. He was placed on IV keppra and had no further seizure activity. He was placed on decadron as well. He had no issues after admission. An MRI of the brain w and w/o contrast was obtained showing 3 ring enhancing lesions located in the right frontal lobe, right temporo-occipital region, and right cerebellar hemisphere. Oncology and Neurology agreed that he needed seen by a neurosurgeon and would need surgery and focal radiation therapy. He was accepted at [facility] under the care of Dr. Arguello. He was discharged to [facility] in stable condition. Also of note in the ER a CT abd/pelvis was obtained which with nonconcerning results as above. This patient was seen by Robbi Pathak PA-C under the supervision of Dr. France. [] Patient Problems: Active and Suspected Problems (Last Reviewed 03/12/18 @ 09:24 by Jania Vallejo) Weakness (Acute) Seizure (Acute) Brain cancer (Acute) Metastatic cancer to brain (Acute) - Physical Exam General: Alert, Oriented x3, Cooperative HEENT: Atraumatic, PERRLA, EOMI, Normocephalic Neck: Supple, No JVD, Negative Carotid Bruits Lungs: Clear to auscultation, Normal air movement Cardiovascular: Regular rate, No murmurs Abdomen: Bowel Sounds Present, Soft, Non Tender Extremities: No edema, Capillary Refill Less than 3 Seconds Skin: No rashes, No breakdown Musculoskeletal: No Tenderness to Palpation of Joints or Extremities Neurological: Cranial nerves II-XII grossly intact Psych/Mental Status: Normal Affect, Appropriate, Alert and oriented to time, place, person, mood and affect Vital Signs Temp Pulse Resp BP Pulse Ox 98.6 F 76 18 110/59 L 97 04/07/18 13:30 04/07/18 13:30 04/07/18 13:30 04/07/18 13:30 04/07/18 13:30 Oxygen Delivery Method Room Air Weight: 125 lb 0.034 oz Body Mass Index (BMI) 19.5 Intake and Output for Last 24 Hours 04/05/18 04/06/18 04/07/18 23:59 23:59 23:59 Intake Total 2642 / 2642 Output Total 900 / 900 Balance 1742 / 1742 Laboratory Tests Past 24 Hrs 04/06/18 04/06/18 04/06/18 18:10 18:10 18:10 WBC 4.7 RBC 2.20 L Hgb 7.7 L Hct 24.8 L MCV 112.7 H MCH 35.0 H MCHC 31.0 L RDW 20.4 H RDW Differential 79.4 H Plt Count 437 MPV 8.3 Immature Gran % (Auto) BATT PACKER Neut % (Auto) BATT PACKER Lymph % (Auto) BATT PACKER Lanier % (Auto) BATT PACKER Eos % (Auto) BATT PACKER Baso % (Auto) BATT PACKER Absolute Neuts (auto) 4.0 Absolute Lymphs (auto) 0.05 L Total Counted 100 Neutrophils % (Manual) 67 Band Neutrophils % 18 H Lymphocytes % (Manual) 1 L Monocytes % (Manual) 13 H Metamyelocytes % 1 Differential Comment Diff Path Review Reviewed Polychromasia RARE Hypochromasia Anisocytosis 2+ Macrocytosis PT 14.0 INR 1.1 APTT 41.6 H Sodium 136 Potassium 3.6 Chloride 101 Carbon Dioxide 30.0 Anion Gap 5 BUN 16 Creatinine 0.94 Estim Creat Clear Calc 67.54 Est GFR (MDRD) Af Amer 105 Est GFR (MDRD) Non-Af 87 BUN/Creatinine Ratio 17.1 Glucose 82 Calcium 8.1 L Total Bilirubin 0.40 Direct Bilirubin 0.17 AST 12 L ALT 14 L Alkaline Phosphatase 69 Troponin I < 0.015 Total Protein 6.1 L Albumin 3.0 L Globulin 3.1 04/07/18 04/07/18 04:28 04:28 WBC 3.2 L RBC 2.32 L Hgb 8.2 L Hct 26.3 L MCV 113.4 H MCH 35.3 H MCHC 31.2 L RDW 19.9 H RDW Differential 78.9 H Plt Count 405 MPV 8.2 Immature Gran % (Auto) 0.600 Neut % (Auto) 94.0 H Lymph % (Auto) 4.1 L Lanier % (Auto) 1.3 Eos % (Auto) 0.0 Baso % (Auto) 0.0 Absolute Neuts (auto) 3.0 Absolute Lymphs (auto) 0.13 L Total Counted Not Reportable Neutrophils % (Manual) Band Neutrophils % Lymphocytes % (Manual) Monocytes % (Manual) Metamyelocytes % Differential Comment SCAN Diff Path Review Polychromasia 1+ Hypochromasia 1+ Anisocytosis 1+ Macrocytosis 1+ PT INR APTT Sodium 139 Potassium 4.5 Chloride 100 Carbon Dioxide 26.0 Anion Gap 13 BUN 21 H Creatinine 1.11 Estim Creat Clear Calc 55.34 Est GFR (MDRD) Af Amer 86 Est GFR (MDRD) Non-Af 71 BUN/Creatinine Ratio 18.9 Glucose 128 H Calcium 8.9 Total Bilirubin Direct Bilirubin AST ALT Alkaline Phosphatase Troponin I Total Protein Albumin Globulin Discharge Diet: - - PEG feedings as directed by pipe cutter: Rec start trophic feeds of Jevity 1.5 via PEG at 30cc/hour w/ 80cc H2O flush every 4 hours to provide 1080 calories, 46 g protein, and 1027cc free fluid/day. If pt tolerates tube feedings, would increase rate by 10cc every 8 to 12 hours as tolerated until goal rate of 60cc/hour w/ 175cc H2O flush to provide 2160 calories, 92 g protein, and 2144cc free fluid/day. Discharge Activity: Return to Normal Activity Home Medications: Medications to take at Discharge Albuterol IH (ProAir) [Proair Hfa] 2 puff INHALATION Q6H PRN #1 inhaler 12/18/17 levothyroxine 150 mcg tablet 150 mcg GT DAILY tab 12/29/17 Clonazepam 0.5 mg GT Q8H PRN 01/12/18 Ferrous Sulfate 325 mg GT BIDCM 90 Days #180 tab 03/24/18 Diltiazem HCl 60 mg GT BID 04/06/18 Lactose-Reduced Food/Fiber [Isosource 1.5 Magno Liquid] 750 ml GT BID 04/06/18 Omeprazole [Prilosec] 20 mg GT DAILY 04/06/18 Oxycodone HCl/Acetaminophen [Oxycodone-Acetaminophen 10-325] 1 tab GT Q6H PRN 04/06/18 Primary Care Physician: Allison Sarmiento NP-C [Primary Care Provider] - Please follow up with your Primary Care Physician in: 2 weeks Additional Instructions: Further care as directed by [facility]. Disposition: Acute care Hospital Minutes spent on discharge:: 35 Patient Condition:: Stable Medical Necessity - Tobacco Use Smoking Status: Former smoker Meaningful Use Info Meaningful Use Diagnoses (Choose all that apply): None applicable <RománLiam - Last Filed: 04/07/18 15:05> Discharge Date and Diagnosis - Primary Discharge Diagnosis Active and Suspected Problems (Last Reviewed 03/12/18 @ 09:24 by Jania Vallejo) Weakness (Acute) Seizure (Acute) Brain cancer (Acute) Metastatic cancer to brain (Acute) - Secondary Discharge Diagnosis Chronic Problems (Last Reviewed 03/12/18 @ 09:24 by Jania Vallejo) PEG (percutaneous endoscopic gastrostomy) status (Chronic) Tobacco dependence in remission (Chronic) Pulmonary nodule, left (Chronic) History of laryngeal cancer (Chronic) Non-small cell carcinoma of left lung, stage 3 (Chronic) Dysphagia (Chronic) Chronic anemia (Chronic) Atrial fibrillation and flutter (Chronic) Pleural effusion (Chronic) Chemotherapy management, encounter for (Chronic) Hospital Course and Treatment Imaging Results: 04/07/18 07:22 Brain W/WO Contrast [MRI] Stat Summary of Care Provided: This patient was seen in conjunction with Robbi GUTHRIE. I have independently interviewed and examined the patient and reviewed pertinent history, examination findings, laboratory and plan of management. I have reviewed the note and agree with the documented findings with the few additional points. In brief, patient is admitted for new onset seizure secondary to 3 ring- enhancing lesions found on brain with significant vasogenic edema and midline shift. Patient had CT scan brain and then MRI brain was done. MRI brain shows right frontal, right occipital and right cerebellum ring-enhancing lesions with significant vasogenic edema and midline shift. Patient was started on IV Decadron and Keppra. Seen by neurologist. As the patient needs neurosurgical consult and further management for increased intracranial pressure, this was discussed with the patient son and [id number] present in the room.Patient is at risk of tonsillar herniation secondary to increased ICP. The patient is in the process of being transferred to [facility] under the care of Dr. Arguello. I have discussed my assessment with Robbi GUTHRIE and orders have been reviewed. [] Objective: Please see my progress note of today. - Physical Exam Vital Signs Temp Pulse Resp BP Pulse Ox 98.6 F 76 18 110/59 L 97 04/07/18 13:30 04/07/18 13:30 04/07/18 13:30 04/07/18 13:30 04/07/18 13:30 Oxygen Delivery Method Room Air Weight: 125 lb 0.034 oz Body Mass Index (BMI) 19.5 Intake and Output for Last 24 Hours 04/05/18 04/06/18 04/07/18 23:59 23:59 23:59 Intake Total 2642 / 2642 Output Total 900 / 900 Balance 1742 / 1742 Laboratory Tests Past 24 Hrs 04/06/18 04/06/18 04/06/18 18:10 18:10 18:10 WBC 4.7 RBC 2.20 L Hgb 7.7 L Hct 24.8 L MCV 112.7 H MCH 35.0 H MCHC 31.0 L RDW 20.4 H RDW Differential 79.4 H Plt Count 437 MPV 8.3 Immature Gran % (Auto) BATT PACKER Neut % (Auto) BATT PACKER Lymph % (Auto) BATT PACKER Lanier % (Auto) BATT PACKER Eos % (Auto) BATT PACKER Baso % (Auto) BATT PACKER Absolute Neuts (auto) 4.0 Absolute Lymphs (auto) 0.05 L Total Counted 100 Neutrophils % (Manual) 67 Band Neutrophils % 18 H Lymphocytes % (Manual) 1 L Monocytes % (Manual) 13 H Metamyelocytes % 1 Differential Comment Diff Path Review Reviewed Polychromasia RARE Hypochromasia Anisocytosis 2+ Macrocytosis PT 14.0 INR 1.1 APTT 41.6 H Sodium 136 Potassium 3.6 Chloride 101 Carbon Dioxide 30.0 Anion Gap 5 BUN 16 Creatinine 0.94 Estim Creat Clear Calc 67.54 Est GFR (MDRD) Af Amer 105 Est GFR (MDRD) Non-Af 87 BUN/Creatinine Ratio 17.1 Glucose 82 Calcium 8.1 L Total Bilirubin 0.40 Direct Bilirubin 0.17 AST 12 L ALT 14 L Alkaline Phosphatase 69 Troponin I < 0.015 Total Protein 6.1 L Albumin 3.0 L Globulin 3.1 04/07/18 04/07/18 04:28 04:28 WBC 3.2 L RBC 2.32 L Hgb 8.2 L Hct 26.3 L MCV 113.4 H MCH 35.3 H MCHC 31.2 L RDW 19.9 H RDW Differential 78.9 H Plt Count 405 MPV 8.2 Immature Gran % (Auto) 0.600 Neut % (Auto) 94.0 H Lymph % (Auto) 4.1 L Lanier % (Auto) 1.3 Eos % (Auto) 0.0 Baso % (Auto) 0.0 Absolute Neuts (auto) 3.0 Absolute Lymphs (auto) 0.13 L Total Counted Not Reportable Neutrophils % (Manual) Band Neutrophils % Lymphocytes % (Manual) Monocytes % (Manual) Metamyelocytes % Differential Comment SCAN Diff Path Review Polychromasia 1+ Hypochromasia 1+ Anisocytosis 1+ Macrocytosis 1+ PT INR APTT Sodium 139 Potassium 4.5 Chloride 100 Carbon Dioxide 26.0 Anion Gap 13 BUN 21 H Creatinine 1.11 Estim Creat Clear Calc 55.34 Est GFR (MDRD) Af Amer 86 Est GFR (MDRD) Non-Af 71 BUN/Creatinine Ratio 18.9 Glucose 128 H Calcium 8.9 Total Bilirubin Direct Bilirubin AST ALT Alkaline Phosphatase Troponin I Total Protein Albumin Globulin Code Visit Inpatient E&M: 93710 Disch Hosp
--- NOTE | 2018-04-07 14:37 | NURSING ---
called report to Leah at this time at [facility] 5400. notified her of knot picker cloth time of 1510.
[2018-04-07] MEDS: Jevity 1.5 1,000 ML 60 ML GT (16:32)
== END 2018-04-07 16:49 | disposition short-term general hospital (02) | DRG 54 ==
LOC: ED 18:38 → MS3 21:10
PROVIDERS: Admitting Provider Family Medicine; Emergency Provider Emergency Medicine; Family Provider Nurse Practitioner Family; PCP Nurse Practitioner Family; Visit Provider Internal Medicine
DX: C79.31 Secondary malignant neoplasm of brain (principal); G93.6 Cerebral edema; E43 Unspecified severe protein-calorie malnutrition; G40.89 Other seizures; Z68.1 Body mass index [BMI] 19.9 or less, adult; C34.32 Malignant neoplasm of lower lobe, left bronchus or lung; Z93.1 Gastrostomy status; E03.9 Hypothyroidism, unspecified; Z92.3 Personal history of irradiation; Z85.21 Personal history of malignant neoplasm of larynx; D63.8 Anemia in other chronic diseases classified elsewhere; Z87.891 Personal history of nicotine dependence; Z79.899 Other long term (current) drug therapy; Z86.79 Personal history of other diseases of the circulatory system; R13.10 Dysphagia, unspecified
CPT/HCPCS: 70470; 70553; 74176; 80048; 80076; 84484; 85025; 85610; 85730; 97802; 99282; A9585; J7030; Q9967; A4216; J2405

== ENCOUNTER 2018-05-05 17:55 | Emergency (ER) | payer MEDICARE, SELFPAY ==
[2017-11-06 15:18] VITALS: BMI 20.7
[2018-04-16 13:58] VITALS: BMI 17.9
[2018-05-05] VITALS (7 sets, daily range): BP systolic 108–136; BP diastolic 65–71; PULSE 79–101; RESP 16–22; TEMP 37.1–38.7; O2SAT 94–98; BMI 17.2
--- NOTE | 2018-05-05 18:32 | CT_ITS ---
STUDY: CT BRAIN WITHOUT CONTRAST REASON FOR EXAM: Male, 62 years old. Weakness, history cephalgia and lung CA with metastases to the brain RADIATION DOSAGE (If Supplied By Facility): CTDIvol = ( 44.99 ) mGy, DLP = ( 829.85 ) mGycm TECHNIQUE: Transaxial CT imaging of the brain was performed without administration of intravenous contrast material. Individualized dose optimization techniques were used for this CT. COMPARISON: April 06, 2018 FINDINGS: Normal soft tissue structures. Normal calvarium. Normal size ventricles and extra-axial spaces for the patient's age. There are at least 2 right cerebral lesions noted with surrounding vasogenic edema. The lesions demonstrate slight enlargement since the previous study. Correlation with MRI is recommended if needed to determine interval progression. Normal basal ganglia and thalami. Normal brainstem. Normal cerebellum. There is no intracranial hemorrhage. There are no findings of an acute ischemic infarction. Paranasal sinus disease. CT/Brain/Head without Contrast IMPRESSION: Right cerebral mass lesions with vasogenic edema with interval increase in size since the previous study. Correlate with MRI is recommended to determine interval progression. Electronically Signed: Paulino Martinez DO at 19:55 EST Tel [phone], Service support ,
--- NOTE | 2018-05-05 18:32 | EKG12_ITS ---
Test Reason : WEAKNESS Blood Pressure : / mmHG Vent. Rate : 097 BPM Atrial Rate : 097 BPM P-R Int : 112 ms QRS Dur : 080 ms QT Int : 312 ms P-R-T Axes : 075 078 070 degrees QTc Int : 396 ms Normal sinus rhythm Normal ECG Confirmed by MIKEY TURNER MD ([id number]), film editor supervisor JOYCE NICOLAS ([id number]) on 05/08/2018 1:46:36 PM Referred By: FLORENTINO Confirmed By:MIKEY TURNER MD
--- NOTE | 2018-05-05 18:45 | RAD_ITS ---
STUDY: X-RAY CHEST REASON FOR EXAM: Male, 62 years old. Weakness, fever, dehydration TECHNIQUE: Single AP portable view of the chest. COMPARISON: Prior study of 12/24/2017 FINDINGS: potline monitor leads are present. There is a left-sided MediPort with catheter tip superimposed on the distal SVC. The right lung is mildly hyperinflated. There is an infiltrate of the left lower lobe. There is evidence of left hemithoracic volume loss. There is no demonstrated pleural abnormality. Normal size heart. Normal mediastinum and tashia. Normal visualized pulmonary arteries. There are calcified plaques of the aortic arch. Normal visualized thoracic spine. Normal visualized ribs, clavicles, and shoulders. There is no demonstrated abnormality of the visualized soft tissue structures of the upper abdomen. RAD/Chest 1 View (Portable) IMPRESSION: Left lower lobe infiltrate. There is evidence of left hemithoracic volume loss. The right lung is hyperinflated. Calcified plaques of the aortic arch. A left-sided MediPort is seen with catheter tip superimposed on the distal SVC. Electronically Signed: Jeffery Suárez MD at 19:18 EST , Service support ,
[2018-05-05] MEDS: 0.9% Normal Saline 1,000 ML 150 ML IV (18:51)
[2018-05-05] MEDS: Acetaminophen 650 MG/20 ML UDC GT (18:53)
[2018-05-05 19:18] LABS: Lactic Acid 0.7 mmol/L (0.4-2.0)
[2018-05-05 19:21] LABS: AST(SGOT) 19 U/L (15-37); Alanine Aminotransfer ALT/SGPT 22 U/L (16-61); Albumin, Serum 2.9 g/dL (3.2-5.0); Alkaline Phosphatase 57 U/L (45-117); Anion Gap 8 (5-15); BUN 45 mg/dL (7-18); BUN/Creat Ratio 41.3 RATIO (10-20); Bilirubin, Direct 0.21 mg/dL (0.00-0.30); Calcium,Total 8.6 mg/dL (8.5-10.1); Chloride 96 mmol/L (98-107); Creatinine, Serum 1.09 mg/dL (0.70-1.30); EST Glomerular Filtration Rate 73 mL/min (>60); Est Glom Filt Rate - Afr Amer 88 mL/min (>60); Estimated Creatinine Clearance 49.59 ml/min; Globulin 3.1 g/dL (2.2-4.2); Glucose 71 mg/dL (74-106); Potassium 3.8 mmol/L (3.5-5.1); Sodium Level 134 mmol/L (136-145)
[2018-05-05 19:26] LABS: Absolute Lymphocyte Count 0.22 X10^3/ul (0.83-4.51); Absolute Neutrophil Count 5.2 X10^3/uL (2.0-7.7); Differential Indicated SCAN CRITERIA MET; Eosinophil# 0.07 X10^3/uL; Eosinophils% 1.3 % (0-5); Hematocrit 33.6 % (40-54); Lymphocyte # 0.22 X10^3/ul (4.0); Mean Corp Hgb Conc 32.7 g/gl (32-36); Mean Corpuscular Hgb 34.4 pg (27.0-32.0); Mean Platelet Vol. 9.4 fl (6.2-12.0); Monocyte# 0.02 X10^3/uL; Monocyte% 0.4 % (0-10); Neutrophil # 5.17 X10^3/uL (2.7-7.7); Neutrophil % 94.1 % (47-70); POSITIVE COUNT NO; POSITIVE DIFFERENTIAL YES; POSITIVE MORPHOLOGY YES; Platelet Count 136 K/mm3 (150-450); RBC Distribution Width SD 73.2 fl (35.1-43.9); White Blood Count 5.5 K/mm3 (4.4-11.0)
[2018-05-05 19:40] LABS: Anisocytosis 1+; Macrocytosis 1+; Platelet Estimate SLT DEC (ADEQ)
[2018-05-05 19:49] LABS: Prothrombin Time (Protime)PT. 13.1 SECONDS (11.7-14.9)
[2018-05-05 19:50] LABS: Partial Thromboplast Time 33.6 Seconds (24.1-36.2)
[2018-05-05] MEDS: Piperacil/Tazobactam 3.375 GM/50 ML ML IV (19:55)
--- NOTE | 2018-05-05 21:57 | ED.DCSUM_ITS ---
- ER Visit Summary Date of Service: 05/05/18 Chief Complaint: Weakness History of Present Illness: The patient is a 62 M with known lung/esophageal cancer with metastatic lesions to his brain. He is supposed to begin chemo/radiation this coming week. Patient states yesterday his left arm was intermittently weak but today has been flaccid. He has not been able to feed himself. Physical Examination: Blood pressure is 136/67, temperature 101.4, heart rate 97, respiratory rate 18, pulse ox 96% on room air. Patient is a cachectic appearing gentleman. Head neck examination grossly unremarkable. Heart is regular rate and rhythm. Lungs sounds are diminished at the bases. Abdomen is soft and nontender. PEG tube is in place. Neuro exam reveals his left arm to be flaccid. He does have intact shoulder shrug. He has strong distal pulses and has good sensation on testing. Test Results: Chest x-ray reveals left lower lobe infiltrate. EKG is sinus at 97 with no sign of acute ischemia. CBC was normal white count. Hemoglobin is 11 and platelet count is 136,000. Chemistry studies reveal glucose of 71. Coags normal. LFTs normal. Lactate normal. CT the head shows right cerebral mass lesions with vasogenic edema with interval increase in size since the previous study. Emergency Department Course and Treatment: Patient was given Tylenol for his fever. Patient was given Zosyn and vancomycin following chest x-ray. He is given a dose of IV Decadron following his head CT. Blood cultures were sent. Test results were discussed with the patient's oncologist, Dr. Leigh. He advises the patient could stay here for treatment of his pneumonia or we could transfer to [facility] where he is to begin his radiation therapy. After speaking with the patient he would prefer transfer to [place]. Patient was accepted by Dr. Anderson. Treatment Plan: [] Disposition: Transfer Impression: 1. Esophageal/lung cancer with metastatic brain lesions 2. Flaccid left arm 3. Pneumonia This note was generated with [employer] dictation software. It may contain incorrect words, spelling, and punctuation that were not noted in review of the chart prior to signing ED Disposition - Plan for ED Patient: Disposition: [facility] Chief Complaint: Weakness Referrals: Allison Sarmiento, SHILA-C [Primary Care Provider] -
--- OUTSIDE RECORDS SUMMARY | 2018-08-07 06:11 | XMS RPT_ITS ---
:1955 Author Organization OHIP Support Name Relationship Address Phone Mackenzie Valero Unavailable Unavailable + Sebas Munson Unavailable Unavailable + Lois Munson Unavailable Unavailable + D Unavailable Unavailable Unavailable MACKENZIE VALERO Unavailable [address] + [address] [place] [address] SEBAS MUNSON Unavailable [address] + [place] [address] Mackenzie Valero Unavailable Unavailable + Sebas Munson Unavailable Unavailable + Lois Munson Unavailable Unavailable + Mackenzie Valero Unavailable Unavailable + Sebas Munson Unavailable Unavailable + Lois Munson Unavailable Unavailable + Mackenzie Valero Unavailable Unavailable + Sebas Munson Unavailable Unavailable + Lois Munson Unavailable Unavailable + D Unavailable Unavailable Unavailable MACKENZIE VALERO Unavailable [address] + [address] [place] [address] SEBAS MUNSON Unavailable [address] + [place] [address] D Unavailable Unavailable Unavailable MACKENZIE VALERO Unavailable [address] + [address] [place] [address] SEBAS MUNSON Unavailable [address] + [place] [address] D Unavailable Unavailable Unavailable MACKENZIE VALERO Unavailable [address] + [address] [place] [address] SEBAS MUNSON Unavailable [address] + [place] [address] D Unavailable Unavailable Unavailable MACKENZIE VALERO Unavailable [address] + [address] [place] [address] SEBAS MUNSON Unavailable [address] + [place] [address] D Unavailable Unavailable Unavailable KELLEN VALEROON Unavailable [address] + [address] [place] [address] SEBAS MUNSON Unavailable [address] + [place] [address] D Unavailable Unavailable Unavailable MACKENZIE VALERO Unavailable [address] + [address] [place] [address] SEBAS MUNSON Unavailable [address] + [place] [address] D Unavailable Unavailable Unavailable MACKENZIE VALERO Unavailable [address] + [address] [place] [address] SEBAS MUNSON Unavailable [address] + [place] [address] D Unavailable Unavailable Unavailable KELLEN VALEROON Unavailable [address] + [address] [place] [address] SEBAS MUNSON Unavailable [address] + [place] [address] D Unavailable Unavailable Unavailable MACKENZIE VALERO Unavailable [address] + [address] [place] [address] SEBAS MUNSON Unavailable [address] + [place] [address] D Unavailable Unavailable Unavailable KELLEN VALEROON Unavailable [address] + [address] [place] [address] SEBAS MUNSON Unavailable [address] + [place] [address] D Unavailable Unavailable Unavailable KELLEN VALEROON Unavailable [address] + [address] [place] [address] SEBAS MUNSON Unavailable [address] + [place] [address] D Unavailable Unavailable Unavailable KELLEN VALEROON Unavailable [address] + [address] [place] [address] SEBAS MUNSON Unavailable [address] + [place] [address] D Unavailable Unavailable Unavailable MACKENZIE VALERO Unavailable [address] + [address] [place] [address] SEBAS MUNSON Unavailable [address] + [place] [address] D Unavailable Unavailable Unavailable MACKENZIE VALERO Unavailable [address] + [address] [place] [address] SEBAS MUNSON Unavailable [address] + [place] [address] LOIS MUNSON Unavailable SON + NOT GIVEN Unavailable Unavailable Unavailable D Unavailable Unavailable Unavailable MACKENZIE VALERO Unavailable [address] + [address] [place] [address] SEBAS MUNSON Unavailable [address] + [place] [address] D Unavailable Unavailable Unavailable MACKENZIE VALERO Unavailable [address] + [address] [place] [address] SEBAS MUNSON Unavailable [address] + [place] [address] D Unavailable Unavailable Unavailable MACKENZIE VALERO Unavailable [address] + [address] [place] [address] SEBAS MUNSON Unavailable [address] + [place] [address] D Unavailable Unavailable Unavailable MACKENZIE VALERO Unavailable [address] + [address] [place] [address] SEBAS MUNSON Unavailable [address] + [place] [address] D Unavailable Unavailable Unavailable MACKENZIE VALERO Unavailable [address] + [address] [place] [address] SEBAS MUNSON Unavailable [address] + [place] [address] D Unavailable Unavailable Unavailable MACKENZIE VALERO Unavailable [address] + [address] [place] [address] SEBAS MUNSON Unavailable [address] + [place] [address] D Unavailable Unavailable Unavailable KELLEN VALEROON Unavailable [address] + [address] [place] [address] SEBAS MUNSON Unavailable [address] + [place] [address] D Unavailable Unavailable Unavailable GARDAVID, MACKENZIE Unavailable [address] + [address] [place] [address] SEBAS MUNSON Unavailable [address] + [place] [address] D Unavailable Unavailable Unavailable OSVALDO, MACKENZIE Unavailable [address] + [address] [place] [address] SEBAS MUNSON Unavailable [address] + [place] [address] D Unavailable Unavailable Unavailable OSVALDO, MACKENZIE Unavailable [address] + [address] [place] [address] SEBAS MUNSON Unavailable [address] + [place] [address] D Unavailable Unavailable Unavailable OSVALDO, MACKENZIE Unavailable [address] + [address] [place] [address] SEBAS MUNSON Unavailable [address] + [place] [address] D Unavailable Unavailable Unavailable KELLEN VALEROON Unavailable [address] + [address] [place] [address] SEBAS MUNSON Unavailable [address] + [place] [address] D Unavailable Unavailable Unavailable KELLEN VALEROON Unavailable [address] + [address] [place] [address] SEBAS MUNSON Unavailable [address] + [place] [address] D Unavailable Unavailable Unavailable KELLEN VALEROON Unavailable [address] + [address] [place] [address] SEBAS MUNSON Unavailable [address] + [place] [address] D Unavailable Unavailable Unavailable KELLEN VALEROON Unavailable [address] + [address] [place] [address] SEBAS MUNSON Unavailable [address] + [place] [address] D Unavailable Unavailable Unavailable GARNES, MACKENZIE Unavailable [address] + [address] [place] [address] SEBAS MUNSON Unavailable [address] + [place] [address] D Unavailable Unavailable Unavailable GARNES, MACKENZIE Unavailable [address] + [address] [place] [address] SEBAS MUNSON Unavailable [address] + [place] [address] D Unavailable Unavailable Unavailable GARNES, MACKENZIE Unavailable [address] + [address] [place] [address] SEBAS MUNSON Unavailable [address] + [place] [address] D Unavailable Unavailable Unavailable GARNES, MACKENZIE Unavailable [address] + [address] [place] [address] SEBAS MUNSON Unavailable [address] + [place] [address] D Unavailable Unavailable Unavailable GARNES, MACKENZIE Unavailable [address] + [address] [place] [address] SEBAS MUNSON Unavailable [address] + [place] [address] D Unavailable Unavailable Unavailable GARNES, MACKENZIE Unavailable [address] + [address] [place] [address] SEBAS MUNSON Unavailable [address] + [place] [address] D Unavailable Unavailable Unavailable GARNES, MACKENZIE Unavailable [address] + [address] [place] [address] SEBAS MUNSON Unavailable [address] + [place] [address] D Unavailable Unavailable Unavailable GARNES, MACEKNZIE Unavailable [address] + [address] [place] [address] SEBAS MUNSON Unavailable [address] + [place] [address] D Unavailable Unavailable Unavailable GARNES, MACKENZIE Unavailable [address] + [address] [place] [address] SEBAS MUNSON Unavailable [address] + [place] [address] D Unavailable Unavailable Unavailable KELLEN VALEROON Unavailable [address] + [address] [place] [address] SEBAS MUNSON Unavailable [address] + [place] [address] D Unavailable Unavailable Unavailable MACKENZIE VALERO Unavailable [address] + [address] [place] [address] SEBAS MUNSON Unavailable [address] + [place] [address] D Unavailable Unavailable Unavailable MACKENZIE VALERO Unavailable [address] + [address] [place] [address] SEBAS MUNSON Unavailable [address] + [place] [address] D Unavailable Unavailable Unavailable MACKENZIE VALERO Unavailable [address] + [address] [place] [address] SEBAS MUNSON Unavailable [address] + [place] [address] D Unavailable Unavailable Unavailable MACKENZIE VALERO Unavailable [address] + [address] [place] [address] SEBAS MUNSON Unavailable [address] + [place] [address] D Unavailable Unavailable Unavailable MACKENZIE VALERO Unavailable [address] + [address] [place] [address] SEBAS MUNSON Unavailable [address] + [place] [address] D Unavailable Unavailable Unavailable MACKENZIE VALERO Unavailable [address] + [address] [place] [address] SEBAS MUNSON Unavailable [address] + [place] [address] D Unavailable Unavailable Unavailable MACKENZIE VALERO Unavailable [address] + [address] [place] [address] SEBAS MUNSON Unavailable [address] + [place] [address] D Unavailable Unavailable Unavailable GARNES, MACKENZIE Unavailable [address] + [address] [place] [address] SEBAS UMNSON Unavailable [address] + [place] [address] D Unavailable Unavailable Unavailable GARNES, MACKENZIE Unavailable [address] + [address] [place] [address] SEBAS MUNSON Unavailable [address] + [place] [address] D Unavailable Unavailable Unavailable GARNES, MACKENZIE Unavailable [address] + [address] [place] [address] SEBAS MUNSON Unavailable [address] + [place] [address] D Unavailable Unavailable Unavailable GARNES, MACKENZIE Unavailable [address] + [address] [place] [address] SEBAS MUNSON Unavailable [address] + [place] [address] D Unavailable Unavailable Unavailable GARNES, MACKENZIE Unavailable [address] + [address] [place] [address] SEBAS MUNSON Unavailable [address] + [place] [address] D Unavailable Unavailable Unavailable GARNES, MACKENZIE Unavailable [address] + [address] [place] [address] SEBAS MUNSON Unavailable [address] + [place] [address] D Unavailable Unavailable Unavailable GARNES, MACKENZIE Unavailable [address] + [address] [place] [address] SEBAS MUNSON Unavailable [address] + [place] [address] D Unavailable Unavailable Unavailable GARNES, MACKENZIE Unavailable [address] + [address] [place] [address] SEBAS MUNSON Unavailable [address] + [place] [address] Kellen Valeroon Unavailable Unavailable + Sebas Munson Unavailable Unavailable + D Unavailable Unavailable Unavailable KELLEN VALEROON Unavailable [address] + [address] [place] [address] SEBAS MUNSON Unavailable [address] + [place] [address] D Unavailable Unavailable Unavailable KELLEN VALEROON Unavailable [address] + [address] [place] [address] SEBAS MUNSON Unavailable [address] + [place] [address] D Unavailable Unavailable Unavailable KELLEN VALEROON Unavailable [address] + [address] [place] [address] SEBAS MUNSON Unavailable [address] + [place] [address] D Unavailable Unavailable Unavailable MACKENZIE VALERO Unavailable [address] + [address] [place] [address] SEBAS MUNSON Unavailable [address] + [place] [address] D Unavailable Unavailable Unavailable KELLEN VALEROON Unavailable [address] + [address] [place] [address] SEBAS MUNSON Unavailable [address] + [place] [address] D Unavailable Unavailable Unavailable KELLEN VALEROON Unavailable [address] + [address] [place] [address] SEBAS MUNSON Unavailable [address] + [place] [address] D Unavailable Unavailable Unavailable KELLEN VALEROON Unavailable [address] + [address] [place] [address] SEBAS MUNSON Unavailable [address] + [place] [address] D Unavailable Unavailable Unavailable MACKENZIE VALERO Unavailable [address] + [address] [place] [address] SEBAS MUNSON Unavailable [address] + [place] [address] D Unavailable Unavailable Unavailable MACKENZIE VALERO Unavailable [address] + [address] [place] [address] SEBAS MUNSON Unavailable [address] + [place] [address] D Unavailable Unavailable Unavailable GARNES, MACKENZIE Unavailable [address] + [address] [place] [address] SEBAS MUNSON Unavailable [address] + [place] [address] D Unavailable Unavailable Unavailable GARNES, MACKENZIE Unavailable [address] + [address] [place] [address] SEBAS MUNSON Unavailable [address] + [place] [address] D Unavailable Unavailable Unavailable GARNES, MACKENZIE Unavailable [address] + [address] [place] [address] SEBAS MUNSON Unavailable [address] + [place] [address] D Unavailable Unavailable Unavailable GARNES, MACKENZIE Unavailable [address] + [address] [place] [address] SEBAS MUNSON Unavailable [address] + [place] [address] D Unavailable Unavailable Unavailable GARNES, MACKENZIE Unavailable [address] + [address] [place] [address] SEBAS MUNSON Unavailable [address] + [place] [address] D Unavailable Unavailable Unavailable GARNES, MACKENZIE Unavailable [address] + [address] [place] [address] SEBAS MUNSON Unavailable [address] + [place] [address] D Unavailable Unavailable Unavailable GARNES, MACKENZIE Unavailable [address] + [address] [place] [address] SEBAS MUNSON Unavailable [address] + [place] [address] D Unavailable Unavailable Unavailable GARNES, MACKENZIE Unavailable [address] + [address] [place] [address] D Unavailable Unavailable Unavailable GARNES, MACKENZIE Unavailable [address] + [address] [place] [address] SEBAS MUNSON Unavailable [address] + [place] [address] D Unavailable Unavailable Unavailable GARNES, MACKENZIE Unavailable [address] + [address] [place] [address] MARNI SEBAS Unavailable [address] + [place] [address] D Unavailable Unavailable Unavailable GARNES, MACKENZIE Unavailable [address] + [address] [place] [address] D Unavailable Unavailable Unavailable GARNES, MACKENZIE Unavailable [address] + [address] [place] [address] D Unavailable Unavailable Unavailable GARNES, MACKENZIE Unavailable [address] + [address] [place] [address] D Unavailable Unavailable Unavailable GARNES, MACKENZIE Unavailable [address] + [address] [place] [address] D Unavailable Unavailable Unavailable GARNES, MACKENZIE Unavailable [address] + [address] [place] [address] D Unavailable Unavailable Unavailable GARNES, MACKENZIE Unavailable [address] + [address] [place] [address] D Unavailable Unavailable Unavailable GARNES, MACKENZIE Unavailable [address] + [address] [place] [address] D Unavailable Unavailable Unavailable GARNES, MACKENZIE Unavailable [address] + [address] [place] [address] D Unavailable Unavailable Unavailable GARNES, MACKENZIE Unavailable [address] + [address] [place] [address] D Unavailable Unavailable Unavailable GARNES, MACKENZIE Unavailable [address] + [address] [place] [address] D Unavailable Unavailable Unavailable GARNES, MACKENZIE Unavailable [address] + [address] [place] [address] Care Team Providers Name Role Phone Alfred Sarmiento CAD ENGINEER-C Primary Care Unavailable Leah Hdz Attending Unavailable Alfred Sarmiento CAD ENGINEER-C Primary Care Unavailable Aminah Vaz Admitting Unavailable Aminah Vaz Attending Unavailable Serina Hollingsworth Consulting Unavailable Marisol Segura Attending Unavailable Torsten, Alfred CAD ENGINEER-C Referring Unavailable Torsten, Alfred CAD ENGINEER-C Primary Care Unavailable Prah, Nino Consulting Unavailable Vish Crespo Attending Unavailable Torsten, Alfred CAD ENGINEER-C Referring Unavailable Torsten, Alfred CAD ENGINEER-C Primary Care Unavailable Prah, Nino Consulting Unavailable Marisol Segura Attending Unavailable Torsten, Alfred CAD ENGINEER-C Referring Unavailable Torsten, Alfred CAD ENGINEER-C Primary Care Unavailable Prah, Nino Consulting Unavailable Ashelfah, Ghasem Admitting Unavailable Ashelfah, Ghasem Attending Unavailable Torsten, Alfred CAD ENGINEER-C Primary Care Unavailable Moodispaw, Kayode Consulting Unavailable Ashelfah, Ghasem Consulting Unavailable Ashelfah, Ghasem Admitting Unavailable Ashelfah, Ghasem Attending Unavailable Torsten, Alfred CAD ENGINEER-C Primary Care Unavailable Moodispareva, Kayode Consulting Unavailable Ashelfah, Ghasem Consulting Unavailable Ashelfah, Ghasem Admitting Unavailable Kayode Arreaga Attending Unavailable Torsten, Alfred CAD ENGINEER-C Primary Care Unavailable Kayode Arreaga Consulting Unavailable Ashelfah, Ghasem Consulting Unavailable Vish Crespo Attending Unavailable Torsten, Alfred CAD ENGINEER-C Referring Unavailable Torsten, Alfred CAD ENGINEER-C Primary Care Unavailable Prah, Nino Consulting Unavailable Ashelfah, Ghasem Admitting Unavailable Ashelfah, Ghasem Attending Unavailable Torsten, Alfred CAD ENGINEER-C Primary Care Unavailable Ashelfah, Ghasem Consulting Unavailable Torsten, Alfred CAD ENGINEER-C Primary Care Unavailable Ashelfah, Ghasem Admitting Unavailable Ashelfah, Ghasem Attending Unavailable Gibson, Kayode Consulting Unavailable Neal Jaimes Attending Unavailable ЮлияhNino Attending Unavailable Torsten, Alfred CAD ENGINEER-C Referring Unavailable Torsten, Alfred CAD ENGINEER-C Primary Care Unavailable Prah, Nino Consulting Unavailable Vish Crespo Attending Unavailable Torsten, Alfred CAD ENGINEER-C Referring Unavailable Torsten, Alfred CAD ENGINEER-C Primary Care Unavailable Prah, Nino Consulting Unavailable Koram, Aminah Maricruz Admitting Unavailable Antoine Hong Attending Unavailable Torsten, Alfred CAD ENGINEER-C Primary Care Unavailable Ron Padron Consulting Unavailable Serina Hollingsworth Consulting Unavailable Marko Elliott Consulting Unavailable Antoine Hong Consulting Unavailable Vish Crespo Attending Unavailable Vish Crespo Referring Unavailable Koram, Aminah Maricruz Admitting Unavailable Antoine Hong Attending Unavailable Torsten, Alfred CAD ENGINEER-C Primary Care Unavailable Nereida, Ron Consulting Unavailable Isckarus, Mansour Consulting Unavailable Earl, Marko Consulting Unavailable Tereletsky, Antoine Consulting Unavailable Koram, Aminah Maricruz Admitting Unavailable Antoine Hong Attending Unavailable Torsten, Alfred CAD ENGINEER-C Primary Care Unavailable Nereida, Ron Consulting Unavailable Isckarus, Mansour Consulting Unavailable Earl, Marko Consulting Unavailable Tereletsky, Antoine Consulting Unavailable Koram, Aminah Maricruz Admitting Unavailable Antoine Hong Attending Unavailable Torsten, Alfred CAD ENGINEER-C Primary Care Unavailable Nereida, Ron Consulting Unavailable Isckarus, Mansour Consulting Unavailable Earl, Marko Consulting Unavailable Tereletsky, Antoine Consulting Unavailable Koram, Aminah Maricruz Admitting Unavailable Antoine Hong Attending Unavailable Torsten, Alfred CAD ENGINEER-C Primary Care Unavailable Nereida, Ron Consulting Unavailable Isckarus, Mansour Consulting Unavailable Earl, Marko Consulting Unavailable Tereletsky, Antoine Consulting Unavailable Koram, Aminah Maricruz Admitting Unavailable Serina Hollingsworth Attending Unavailable Torsten, Alfred CAD ENGINEER-C Primary Care Unavailable Nereida, Ron Consulting Unavailable Isckarus, Mansour Consulting Unavailable Tereletsky, Antoine Consulting Unavailable Koram, Aminah Maricruz Admitting Unavailable Koram, Aminah Maricruz Attending Unavailable Torsten, Alfred CAD ENGINEER-C Primary Care Unavailable Koram, Aminah Maricruz Consulting Unavailable Torsten, Alfred CAD ENGINEER-C Primary Care Unavailable Koram, Aminah Maricruz Admitting Unavailable Nereida, Ron Consulting Unavailable Antoine Hong Attending Unavailable Isckarus, Mansour Consulting Unavailable Earl, Marko Consulting Unavailable Vish Crespo Attending Unavailable Torsten, Alfred CAD ENGINEER-C Referring Unavailable Torsten, Alfred CAD ENGINEER-C Primary Care Unavailable PraNino romero Consulting Unavailable Nino Leigh Attending Unavailable Torsten, Alfred CAD ENGINEER-C Referring Unavailable Torsten, Alfred CAD ENGINEER-C Primary Care Unavailable Prah, Nino Consulting Unavailable Vish Crespo Attending Unavailable Torsten, Alfred CAD ENGINEER-C Referring Unavailable Torsten, Alfred CAD ENGINEER-C Primary Care Unavailable Prah, Nino Consulting Unavailable Torsten, Alfred CAD ENGINEER-C Primary Care Unavailable Arya García Attending Unavailable Vish Crespo Attending Unavailable Nino Leigh Attending Unavailable Torsten, Alfred CAD ENGINEER-C Referring Unavailable Torsten, Alfred CAD ENGINEER-C Primary Care Unavailable Prah, Nino Consulting Unavailable Ashelffavian, Ghasem Admitting Unavailable Moodispaw, Kayode Attending Unavailable Alfred Sarmiento CAD ENGINEER-C Primary Care Unavailable BenitoNitish bell Consulting Unavailable Silva, Hai Consulting Unavailable Nereida, Ron Consulting Unavailable Moodispareva, Kayode Consulting Unavailable Ashelfah, Ghasem Consulting Unavailable Ashelfah, Ghasem Admitting Unavailable Nitish Oliver Attending Unavailable Alfred Sarmiento CAD ENGINEER-C Primary Care Unavailable Nitish Oliver Consulting Unavailable Silva, Hai Consulting Unavailable Nereida, Ron Consulting Unavailable Moodispareva, Kayode Consulting Unavailable Ashelfah, Ghasem Consulting Unavailable Ashelfah, Ghasem Admitting Unavailable Ban Alicea CAD ENGINEER-C Attending Unavailable Alfred Sarmiento CAD ENGINEER-C Primary Care Unavailable Benito, Nitish Consulting Unavailable Silva, Hai Consulting Unavailable Nereida, Ron Consulting Unavailable Moodispareva, Kayode Consulting Unavailable Ashelfah, Ghasem Consulting Unavailable Ashelfah, Ghasem Admitting Unavailable Ashelfah, Ghasem Attending Unavailable Alfred Sarmiento CAD ENGINEER-C Primary Care Unavailable Nitish Oliver Consulting Unavailable Silva, Hai Consulting Unavailable Nereida, Ron Consulting Unavailable Basilispareva, Kayode Consulting Unavailable Ashelfah, Ghasem Consulting Unavailable Ashelfah, Ghasem Admitting Unavailable Kayode Arreaga Attending Unavailable Alfred Sarmiento CAD ENGINEER-C Primary Care Unavailable Nitish Oliver Consulting Unavailable Silva, Hai Consulting Unavailable Nereida, Ron Consulting Unavailable Moodispareva, Kayode Consulting Unavailable Ashelfah, Ghasem Consulting Unavailable Ashelfah, Ghasem Admitting Unavailable Ashelfah, Ghasem Attending Unavailable Alfred Sarmiento CAD ENGINEER-C Primary Care Unavailable Nitish Oliver Consulting Unavailable Silva, Hai Consulting Unavailable Nereida, Ron Consulting Unavailable Ashelfah, Ghasem Consulting Unavailable Ashelfah, Ghasem Admitting Unavailable Nitish Oliver Attending Unavailable Torsten, Alfred CAD ENGINEER-C Primary Care Unavailable Nitish Oliver Consulting Unavailable Silva, Hai Consulting Unavailable Nereida, Ron Consulting Unavailable Ashelfah, Ghasem Consulting Unavailable Ashelfah, Ghasem Admitting Unavailable Ban Alicea CAD ENGINEER-C Attending Unavailable lAfred Sarmiento CAD ENGINEER-C Primary Care Unavailable Nitish Oliver Consulting Unavailable Silva, Hai Consulting Unavailable Ashelfah, Ghasem Consulting Unavailable Carlos Robles D.O. Attending Unavailable Torsten, Alfred CAD ENGINEER-C Referring Unavailable Ashelfah, Ghasem Admitting Unavailable Ashelfah, Ghasem Attending Unavailable Torsten, Alfred CAD ENGINEER-C Primary Care Unavailable Ashelfah, Ghasem Consulting Unavailable Torsten, Alfred CAD ENGINEER-C Primary Care Unavailable Ashelfah, Ghasem Admitting Unavailable Ashelfah, Ghasem Attending Unavailable Nitish Oliver Consulting Unavailable Hai Ascencio Consulting Unavailable Ron Padron Consulting Unavailable Kayode Arreaga Consulting Unavailable Vish Crespo Attending Unavailable Vish Crespo Referring Unavailable Torsten, Alfred CAD ENGINEER-C Primary Care Unavailable Vish Crespo Attending Unavailable Torsten, Alfred CAD ENGINEER-C Referring Unavailable Torsten, Alfred CAD ENGINEER-C Primary Care Unavailable Nino Leigh Consulting Unavailable Nino Leigh Attending Unavailable Nino Leigh Attending Unavailable Torsten, Alfred CAD ENGINEER-C Referring Unavailable Torsten, Alfred CAD ENGINEER-C Primary Care Unavailable Nino Leigh Consulting Unavailable Nino Leigh Attending Unavailable Torsten, Alfred CAD ENGINEER-C Primary Care Unavailable Nino Leigh Attending Unavailable Nino Leigh Referring Unavailable Torsten, Alfred CAD ENGINEER-C Primary Care Unavailable Nino Leigh Attending Unavailable Torsten, Alfred CAD ENGINEER-C Referring Unavailable Torsten, Alfred CAD ENGINEER-C Primary Care Unavailable Nino Leigh Consulting Unavailable Carlos Robles D.O. Attending Unavailable Torsten, Alfred CAD ENGINEER-C Referring Unavailable Torsten, Alfred CAD ENGINEER-C Primary Care Unavailable Carlos Robles D.O. Attending Unavailable Carlos Robles D.O. Referring Unavailable Torsten, Alfred CAD ENGINEER-C Primary Care Unavailable Carlos Robles D.O. Consulting Unavailable Carlos Robles D.O. Attending Unavailable Carlos Robles D.O. Referring Unavailable Torsten, Alfred CAD ENGINEER-C Primary Care Unavailable Carlos Robles D.O. Attending Unavailable Torsten, Alfred CAD ENGINEER-C Referring Unavailable Nino Leigh Attending Unavailable Torsten, Alfred CAD ENGINEER-C Referring Unavailable Torsten, Alfred CAD ENGINEER-C Primary Care Unavailable Nino Leigh Consulting Unavailable Nino Leigh Attending Unavailable Lu Nino Referring Unavailable Torsten, Alfred CAD ENGINEER-C Primary Care Unavailable Torsten, Alfred CAD ENGINEER-C Attending Unavailable Torsten, Alfred CAD ENGINEER-C Primary Care Unavailable Nino Leigh Attending Unavailable Torsten, Alfred CAD ENGINEER-C Primary Care Unavailable Nino Leigh Consulting Unavailable Nino Leigh Attending Unavailable Lu Nino Referring Unavailable Torsten, Alfred CAD ENGINEER-C Primary Care Unavailable Nino Leigh Attending Unavailable Torsten, Alfred CAD ENGINEER-C Referring Unavailable Torsten, Alfred CAD ENGINEER-C Primary Care Unavailable Praheather Nino Consulting Unavailable Anu, Kayode Admitting Unavailable Torsten, Alfred CAD ENGINEER-C Primary Care Unavailable Isckarus, Mansour Consulting Unavailable Román, Liam Attending Unavailable Jodie, Melina S. Consulting Unavailable Román, Liam Consulting Unavailable Román, Liam Referring Unavailable Anu, Kayode Admitting Unavailable Vish Crespo Attending Unavailable Torsten, Alfred CAD ENGINEER-C Primary Care Unavailable Isckarus, Mansour Consulting Unavailable Jodie, Melina S. Consulting Unavailable Román, Liam Consulting Unavailable Anu, Kayode Attending Unavailable Torsten, Alfred CAD ENGINEER-C Primary Care Unavailable Torsten, Alfred CAD ENGINEER-C Primary Care Unavailable Brennan, Kayode Admitting Unavailable Isckarus, Mansour Consulting Unavailable Román, Liam Attending Unavailable Jodie, Melina S. Consulting Unavailable Sara, Vish Consulting Unavailable Nino Leigh Attending Unavailable Torsten, Alfred CAD ENGINEER-C Primary Care Unavailable Nino Leigh Attending Unavailable Torsten, Alfred CAD ENGINEER-C Referring Unavailable Torsten, Alfred CAD ENGINEER-C Primary Care Unavailable Nino Leigh Consulting Unavailable Nino Leigh Attending Unavailable Torsten, Alfred CAD ENGINEER-C Referring Unavailable Torsten, Alfred CAD ENGINEER-C Primary Care Unavailable Nino Leigh Consulting Unavailable Vish Crespo Attending Unavailable Nino Leigh Attending Unavailable Torsten, Alfred CAD ENGINEER-C Primary Care Unavailable Kayode Arreaga Attending Unavailable Milind, Aminah Maricruz Referring Unavailable Nino Leigh Attending Unavailable Torsten, Alfred CAD ENGINEER-C Referring Unavailable Torsten, Alfred CAD ENGINEER-C Primary Care Unavailable Nino Leigh Consulting Unavailable Nino Leigh Attending Unavailable Torsten, Alfred CAD ENGINEER-C Primary Care Unavailable Neal Jaimes Attending Unavailable Ashelfah, Ghasem Referring Unavailable Neal Jaimes Attending Unavailable Ashelfah, Ghasem Referring Unavailable Nino Leigh Attending Unavailable Torsten, Alfred CAD ENGINEER-C Referring Unavailable Torsten, Alfred CAD ENGINEER-C Primary Care Unavailable PraNino romero Consulting Unavailable Nino Leigh Attending Unavailable Torsten, Alfred CAD ENGINEER-C Referring Unavailable Torsten, Alfred CAD ENGINEER-C Primary Care Unavailable Nino Leigh Consulting Unavailable Koram, Aminah Maricruz Admitting Unavailable Torsten, Alfred CAD ENGINEER-C Primary Care Unavailable Isckarus, Mansour Consulting Unavailable Koram, Aminah Maricruz Attending Unavailable Koram, Aminah Maricruz Consulting Unavailable Vish Crespo Attending Unavailable Sara, Vish Referring Unavailable Koram, Aminah Maricruz Admitting Unavailable Koram, Aminah Maricruz Attending Unavailable Torsten, Alfred CAD ENGINEER-C Primary Care Unavailable Isckarus, Mansour Consulting Unavailable Koram, Aminah Maricruz Consulting Unavailable Koram, Aminah Maricruz Referring Unavailable Koram, Aminah Maricruz Admitting Unavailable Lucykarus, Naniour Attending Unavailable Torsten, Alfred CAD ENGINEER-C Primary Care Unavailable Lucykarus, Mansour Consulting Unavailable Koram, Aminah Maricruz Consulting Unavailable Esther Johnson Attending Unavailable Torsten, Alfred CAD ENGINEER-C Referring Unavailable Vish Crespo Attending Unavailable Torsten, Alfred CAD ENGINEER-C Referring Unavailable Torsten, Alfred CAD ENGINEER-C Primary Care Unavailable Nino Leigh Consulting Unavailable Neal Jaimes Attending Unavailable Ashelfah, Ghasem Referring Unavailable Ashelfah, Ghasem Admitting Unavailable Kayode Arreaga Attending Unavailable Torsten, Alfred CAD ENGINEER-C Primary Care Unavailable Kayode Arreaga Consulting Unavailable Timoelfah, Ghasem Consulting Unavailable Vish Crespo Attending Unavailable Sara, Vish Referring Unavailable Vish Crespo Attending Unavailable Sara, Vish Referring Unavailable Koram, Aminah Maricruz Admitting Unavailable Antoine Hong Attending Unavailable Torsten, Alfred CAD ENGINEER-C Primary Care Unavailable Ron Padron Unavailable Edel, Mansour Consulting Unavailable Marko Elliott Consulting Unavailable Antoine Hong Consulting Unavailable Nino Leigh Attending Unavailable Torsten, Alfred CAD ENGINEER-C Primary Care Unavailable Torsten, Alfred CAD ENGINEER-C Referring Unavailable TORSTEN, ALFRED Admitting Unavailable TORSTEN, ALFRED Attending Unavailable TORSTEN, ALFRED Primary Care Unavailable TORSTEN, ALFRED Consulting Unavailable PROVIDER, UNKNOWN Consulting Unavailable DENNYOLIVER Attending Unavailable PROVIDER, UNKNOWN Referring Unavailable No, PCP Primary Care Unavailable Stiles, Yoko Attending Unavailable PROVIDER, UNKNOWN Referring Unavailable Torsten, Alfred Primary Care Unavailable Stiles, Yoko Attending Unavailable PROVIDER, UNKNOWN Referring Unavailable No, PCP Primary Care Unavailable Stiles, Yoko Attending Unavailable PROVIDER, UNKNOWN Referring Unavailable Torsten, Alfred Primary Care Unavailable PROVIDER, UNKNOWN Referring Unavailable Torsten, Alfred Primary Care Unavailable MANDEEP Attending Unavailable UNKNOWN, PROVIDER Admitting Unavailable IMCA Primary Care Unavailable SAE CASTILLO Consulting Unavailable BETTYE SUERO Attending Unavailable ITRPETER, AHMED Consulting Unavailable ESTHER BARNES Consulting Unavailable RON PADRON Attending Unavailable ALFRED SARMIENTO Referring Unavailable IVY JEAN Attending Unavailable ZARA YANG Admitting Unavailable BETTYE SUERO Attending Unavailable ESTHER BARNES Consulting Unavailable PROBLEMS PROBLEMS DATE TYPE CONDITION / CODE ATTENDING STATUS SOURCE Admitting Personal history of PARAJULI Active [facility] 8 Diagnosis malignant neoplasm of System larynx / Repository Z85.21(ICD-10) Admitting Secondary malignant PARAJULI Active [facility] 8 Diagnosis neoplasm of brain / System C79.31(ICD-10) Repository Admitting Pneumonia, unspecified PARAJULI Active [facility] 8 Diagnosis organism / System J18.9(ICD-10) Repository Admitting Pneumonia due to other PARAJULI Active [facility] 8 Diagnosis Gram-negative bacteria System / J15.6(ICD-10) Repository Admitting Unspecified severe PARAJULI Active [facility] 8 Diagnosis protein-calorie System malnutrition / Repository E43(ICD-10) Admitting Malignant neoplasm of PARAJULI Active [facility] 8 Diagnosis unsp part of left System bronchus or lung / Repository C34.92(ICD-10) Admitting Hypo-osmolality and PARAJULI Active [facility] 8 Diagnosis hyponatremia / System E87.1(ICD-10) Repository Admitting Candidal stomatitis / PARAJULI Active [facility] 8 Diagnosis B37.0(ICD-10) System Repository Admitting Body mass index (BMI) PARAJULI Active [facility] 8 Diagnosis 19.9 or less, adult / System Z68.1(ICD-10) Repository Admitting Cachexia / R64(ICD-10) PARAJULI Active [facility] 8 Diagnosis System Repository Admitting Dysphagia, unspecified PARAJULI Active [facility] 8 Diagnosis / R13.10(ICD-10) System Repository Admitting Anxiety disorder, PARAJULI Active [facility] 8 Diagnosis unspecified / System F41.9(ICD-10) Repository Admitting Encounter for PARAJULI Active [facility] 8 Diagnosis palliative care / System Z51.5(ICD-10) Repository Admitting Do not resuscitate / PARAJULI Active [facility] 8 Diagnosis Z66(ICD-10) System Repository Admitting Essential (primary) PARAJULI Active [facility] 8 Diagnosis hypertension / System I10(ICD-10) Repository Admitting Neoplasm related pain PARAJULI Active [facility] 8 Diagnosis (acute) (chronic) / System G89.3(ICD-10) Repository Admitting Unspecified PARAJULI Active [facility] 8 Diagnosis convulsions / System R56.9(ICD-10) Repository Admitting Personal history of PARAJULI Active [facility] 8 Diagnosis nicotine dependence / System Z87.891(ICD-10) Repository Admitting Gastrostomy status / PARAJULI Active [facility] 8 Diagnosis Z93.1(ICD-10) System Repository Unknown Z51.0 - Encounter for Nino Leigh Active [facility] antineoplastic Community radiation therapy / Hospital Z51.0(ICD-10) Repository Unknown C34.92 - Malignant Nino Leigh Active [facility] neoplasm of Community unspecified part of Hospital left bronchus or lung Repository / C34.92(ICD-10) Unknown D64.9 - Anemia, Nino Leigh Active [facility] unspecified / Community D64.9(ICD-10) Hospital Repository Unknown Z85.21 - Personal Nino Leigh Active [facility] history of malignant Community neoplasm of larynx / Hospital Z85.21(ICD-10) Repository Admitting Unknown / UNK(Unknown) STONE, BETTYE Active [facility] diagnosis [facility] Repository Active Unknown / UNK(Unknown) STONE, BETTYE Active [place] [facility] Other [place] Repository Unknown R53.1 - Weakness / Liam [place] Active [facility] R53.1(ICD-10) [facility] Hospital Repository Unknown R13.10 - Dysphagia, Nino Leigh Active [facility] unspecified / Community R13.10(ICD-10) Hospital Repository Principle Other specified ALFRED SARMIENTO Active [facility] 8 Diagnosis hypothyroidism / [facility] E038(ICD-10) Hospital Repository Unknown R94.31 - Abnormal [place], Active [facility] electrocardiogram [facility] [ECG] [EKG] / Hospital R94.31(ICD-10) Repository Unknown I48.0 - Paroxysmal [place], Active [facility] atrial fibrillation / [facility] I48.0(ICD-10) Hospital Repository Unknown R91.1 - Solitary Col[place], Active [facility] pulmonary nodule / [facility] Community R91.1(ICD-10) Hospital Repository Unknown K21.9 - [place], Active [facility] esophagitis / Repository K21.9(ICD-10) Unknown I48.92 - Unspecified Fiona, Neal Active [facility] atrial flutter / [facility] I48.92(ICD-10) Hospital Repository Unknown D61.818 - Other Tereletsky, Active [facility] 8 pancytopenia / [facility] D61.818(ICD-10) Hospital Repository Unknown R07.0 - Pain in Nino Hayes Active [facility] / R07.0(ICD-10) [facility] Hospital Repository Unknown Z79.899 - Other long Nino Leigh Active [facility] 8 term (current) drug Community therapy / Hospital Z79.899(ICD-10) Repository Unknown R07.9 - Chest pain, Raquel, Active [facility] unspecified / [facility] R07.9(ICD-10) Hospital Repository Admitting Malignant neoplasm of DENNY, OLIVER Active [facility] 8 Diagnosis left main bronchus / System C34.02(ICD-10) Repository Admitting Oth foreign object in DENNY, OLIVER Active [facility] 8 Diagnosis bronchus causing System asphyxiation, init / Repository T17.590A(ICD-10) Admitting Other diseases of DENNY, OLIVER Active [facility] 8 Diagnosis bronchus, not System elsewhere classified / Repository J98.09(ICD-10) Admitting Unspecified atrial DENNY, OLIVER Active [facility] 8 Diagnosis fibrillation / System I48.91(ICD-10) Repository Admitting Exposure to other DENNY, OLIVER Active [facility] 8 Diagnosis specified factors, System initial encounter / Repository X58.XXXA(ICD-10) Admitting Personal history of DENNY, OLIVER Active [facility] 8 Diagnosis irradiation / System Z92.3(ICD-10) Repository Admitting Personal history of DENNY, OLIVER Active [facility] 8 Diagnosis antineoplastic System chemotherapy / Repository Z92.21(ICD-10) Unknown R00.0 - Tachycardia, Fiona, [place] Active [facility] unspecified / Community R00.0(ICD-10) Hospital Repository Unknown J90 - Pleural Vish Crespo Active [facility] effusion, not Community elsewhere classified / Hospital J90(ICD-10) Repository Unknown C34.32 - Malignant Nino Leigh Active [facility] 8 neoplasm of lower Community lobe, left bronchus or Hospital lung / C34.32(ICD-10) Repository Unknown R91.8 - Other Carlos Robles Active [facility] nonspecific abnormal D.O. Community finding of lung field Hospital / R91.8(ICD-10) Repository Unknown C76.0 - Malignant Nino Leigh Active [facility] 8 neoplasm of head, face Community and neck / Hospital C76.0(ICD-10) Repository PROCEDURES PROCEDURES No Procedure Records FoundRESULTS RESULTS RADIATION ONC DISCH Observed: 06/06/2018 Status: F Source: [employer] [facility] 7:08 PM SYSTEM REPOSITORY PATIENT: TOMY MUNSON DATE OF SERVICE: 05/14/2018 : 1955 AGE: 62 Electronically Authenticated Yoko Stiles MD 06/07/2018 08:19 A MR. MUNSON is a 62-year-old gentleman with multifocal brain metastasis. Given the symptomatology related to the largest lesions, he was treated with stereotactic radiation therapy to a single isocenter consisting of the right parietal and right occipital tumors, delivering 25 Gy over 5 fractions daily. He began therapy on April 2018, and completed therapy on May 14, 2018. CT scan was utilized for planning. 3D reconstruction with DVH. IMRT was utilized to generate steep dose gradients and spare underlying normal tissue structures. Stereotactic planning was done in conjunction with Dr. Westfall. Overall, the patient tolerated the treatment well without required interruption. However, given his overall clinical decline, plan was to complete stereotactic radiation and pursue hospice care. No further follow-up will be scheduled in my clinic. Player[employer] Job ID: [id number] Yoko Stiles MD DOD:06/06/2018 07:08 P ABD/dsk DOT:06/06/201810:35 P cc: Kayode Westfall MD [facility] [address] [facility] [address] Alfred Sarmiento, RANCH MANAGER [address] [facility] [address] [facility] [address] Dexter Crespo, DO [address] [facility] [address] DISCHARGE SUMMARY Observed: 06/06/2018 Status: F Source: [employer] 7:08 PM SYSTEM REPOSITORY PATIENT: TOMY MUNSON DATE OF SERVICE: 05/14/2018 : 1955 AGE: 62 Electronically Authenticated Yoko Stiles MD 06/07/2018 08:19 A MR. MUNSON is a 62-year-old gentleman with multifocal brain metastasis. Given the symptomatology related to the largest lesions, he was treated with stereotactic radiation therapy to a single isocenter consisting of the right parietal and right occipital tumors, delivering 25 Gy over 5 fractions daily. He began therapy on April 2018, and completed therapy on May 14, 2018. CT scan was utilized for planning. 3D reconstruction with DVH. IMRT was utilized to generate steep dose gradients and spare underlying normal tissue structures. Stereotactic planning was done in conjunction with Dr. Westfall. Overall, the patient tolerated the treatment well without required interruption. However, given his overall clinical decline, plan was to complete stereotactic radiation and pursue hospice care. No further follow-up will be scheduled in my clinic. [employer] Job ID: [id number] Yoko Stiles MD DOD:06/06/2018 07:08 P ABD/dsk DOT:06/06/201810:35 P cc: Kayode Westfall MD [facility] [address] [facility] [address] Alfred Sarmiento, RANCH MANAGER [address] [facility] [address] Dexter Crespo, DO [address] [facility] [id number] DISCHARGE SUMMARY Observed: 05/16/2018 Status: F Source: [facility] 9:21 AM SYSTEM REPOSITORY Tomy Munson : 1955 ADMIT DATE: 05/06/2018 DISCHARGE DATE: 05/16/2018 PRIMARY CARE PHYSICIAN: ALFRED SARMIENTO APRN - SECURITY DIRECTOR VISIT STATUS: Inpatient CODE STATUS: DNR-CC DISCHARGE DIAGNOSES: 1. Lung Ca with brain mets 2. Hx of laryngeal CA s/p chemo/XRT with chronic dysphagia 3. Gram negative PNA 4. HTN 5. 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 MRI of the brain was obtained which showed a ting ring-enhancing 4-5 mm lesion in the left Left parietal cortical area. Patient continued to receive XRT with second treatment on 05/08. Patient was aslo found to have gram negative PNA and was treated with a course of antibiotics. Palliative care team was consulted and patient was made DNR CC. He was discharged home today with hospice. Vitals: 05/16/18 0816 BP: 122/74 Pulse: 80 Resp: 20 Temp: 98.7 ?F (37.1 ?C) SpO2: 97% CONSULTANTS: MD Andreia Mcpherson MD DISCHARGE MEDICATIONS: Tomy Munson Home Medication Instructions KIMBERLEY:[id number] Printed on:05/16/18920 Medication Information clonazePAM (KLONOPIN) 1 MG tablet Take 1 tablet by mouth 2 times daily for 10 days. Hospice Patient. dexamethasone (DECADRON) 4 MG tablet Take 4 mg by mouth every 6 hours diltiazem (CARDIZEM) 60 MG tablet Take 60 mg by mouth 2 times daily levETIRAcetam (KEPPRA) 100 MG/ML solution Take 1,000 mg by mouth 2 times daily LORazepam (ATIVAN) 0.5 MG tablet 1 tablet by PEG Tube route every 6 hours as needed for Anxiety for up to 30 days. Hospice Patient. morphine (MSIR) 15 MG tablet 0.5-1 tablets by PEG Tube route every 2 hours as needed for Pain for up to 10 days. Hospice Patient. DIET: DIET GENERAL; ACTIVITY: As tolerated Readmission Risk Risk of Unplanned Readmission: 16 DISPOSITION: Home with hospice FACILITY/HOME CARE AGENCY NAME: [facility] Total Discharge time > 35 mins SIGNATURE: Trini Brito MD PAGER- [phone] Date of Service: 05/16/2018 Time of Service: 9:21 AM RENAL FUNCTION Collected: 05/13/2018 Status: F Source: [employer] 6:03 PM SYSTEM REPOSITORY TYPE CODE TESTS RESULT OUT OF RANGE REFERENCE UNITS LAB NA3 135-145 mmol/L Low Sodium 131 LAB K3 3.5-5.1 mmol/L Normal Potassium 4.6 LAB CL3 98-107 mmol/L Low Chloride 92 LAB CO23 22-30 mmol/L High Carbon Dioxide 33 LAB ANIN3 NA Anion Gap 5 LAB GLUC3 70-100 mg/dL High Glucose 106 LAB BUN3 7-20 mg/dL High Urea Nitrogen 48 LAB CRET3 0.52-1.25 mg/dL Normal Creatinine 0.77 LAB GF3BR >60 mL/min eGFR > 60.0 LAB GF3WR >60 mL/min eGFR OTHER > 60.0 Result Comment: Source- MDRD equation with creatinine calibration to IDMS(NKDEP) eGFR not recommended for drug dose adjustment LAB CA3 8.4-10.4 mg/dL Normal Calcium 8.6 LAB ALB3 3.5-5.0 g/dL Low Albumin, Serum 3.1 LAB PHOS3 2.5-4.5 mg/dL Low Phosphorus 2.4 Performed By: #### RENL3 #### [facility] [address] [place] [id number] RENAL FUNCTION Collected: 05/13/2018 Status: F Source: [employer] 5:07 AM SYSTEM REPOSITORY TYPE CODE TESTS RESULT OUT OF RANGE REFERENCE UNITS LAB NA3 135-145 mmol/L Low Sodium 131 LAB K3 3.5-5.1 mmol/L Normal Potassium 4.2 LAB CL3 98-107 mmol/L Low Chloride 92 LAB CO23 22-30 mmol/L High Carbon Dioxide 35 LAB ANIN3 NA Anion Gap 5 LAB GLUC3 70-100 mg/dL High Glucose 124 LAB BUN3 7-20 mg/dL High Urea Nitrogen 48 LAB CRET3 0.52-1.25 mg/dL Normal Creatinine 0.88 LAB GF3BR >60 mL/min eGFR > 60.0 LAB GF3WR >60 mL/min eGFR OTHER > 60.0 Result Comment: Source- MDRD equation with creatinine calibration to IDMS(NKDEP) eGFR not recommended for drug dose adjustment LAB CA3 8.4-10.4 mg/dL Normal Calcium 8.5 LAB ALB3 3.5-5.0 g/dL Low Albumin, Serum 2.9 LAB PHOS3 2.5-4.5 mg/dL Low Phosphorus 2.3 Performed By: #### RENL3 #### [facility] [address] [place] [id number] PROCALCITONIN Collected: 05/09/2018 Status: F Source: [employer] 12:24 AM SYSTEM REPOSITORY TYPE CODE TESTS RESULT OUT OF RANGE REFERENCE UNITS LAB PRO <0.10 ng/mL Procalcitonin Abnormal 0.13 LAB INT3 NA Interpretation See Below Result Comment: PCT <0.50 = Low risk of severe sepsis and/or septic shock. PCT >2.00 = High risk of severe sepsis and/or septic shock. Performed By: #### PCAL #### [facility] [address] [place] [id number] COMMUTER PILOT MODIFIED BARIUM Observed: 05/08/2018 Status: F Source: [employer] SWALLOW STUDY 2:50 PM SYSTEM REPOSITORY Patient Name: TOMY MUNSON Fluoroscopy Exam Date/Time 05/10/2018 07:53:13 EST Exam COMMUTER PILOT Modified Barium Swallow Study Ordering Physician MD JAMIE, ZORA Tovar Accession Number [id number] Reason For Exam eval ability to swallow liquids Report Date: 05/08/2018 2:50 PM EST Onset Date: 05-06-18 Diagnosis: h/o laryngeal CA s/p radiation ( 5 years ago, 37 radiation treatments, PEG), lung CA w/ mets to the brain (per MRI: vasogenic edema with metastatic lesions right cerebellar hemisphere, right parietal, right occipital lobe, left parietal lobe) Reason for Referral: pneumonia, concern for aspiration PMHX: laryngeal CA, dysphagia, PEG, lung CA w/ brain mets, seizures, anxiety Oxygen Requirement: RA Current Diet: NPO/PEG TF Thickness of liquid: NPO Prior MBS date and results: No prior MBS in [facility]. Pt reports MBS x5 completed at [facility] along with speech therapy. Pt reports most recent MBS completed 3 months ago cleared for liquids only. Pt reports drinking thin liquids at home, PEG TF to supplement. Textures tested: Lemon Ice, [place] Thick, Thin Liquid, Honey Thick Patient position: Seated/Lateral TEST RESULTS: Oral Phase: Pt is edentulous. No solids or purees tested per pt request- concerned it will get stuck. There is premature spillage into the pharynx with liquid consistencies tested. Pharyngeal Phase: The pt does not achieve full epiglottic deflection and as a result has reduced airway protection. Pharyngeal residues across consistencies, although mild, do not clear w/ reflexive reswallows and cued effortful swallows. Lemon ice, nectar thick, honey thick and thin liquids draining down posterior epiglottis and piriforms. There is SILENT vocal cord penetration with nectar thick and thin liquids. Cued hawker and cough do not clear residues from laryngeal vestibule. Pt's absent protective sensory response likely post radiation effect. Pharyngeal Weakness: Weak Pharyngeal Wall, Weak Tongue Base, Reduced Laryngeal Excursion, Reduced Epiglottic Deflection Esophageal Phase: WFL for the scope of this evaluation General Impressions: There is no safe oral diet that can be recommended for this patient. Continue NPO/PEG TF. Pt is currently full code. If pleasure diet desired, consider palliative care consult for further guidance. Discussed importance of good oral hygiene and option of Dill Free Water Protocol when respiratory status is more stable (currently with pneumonia). Patient reports past speech therapy for dysphagia completed at [facility]. Patient is interested in resuming post discharge. Given long standing history of dysphagia and now with brain mets, prognosis for recovery of functional swallow is guarded. Diet Recommendations / Strategies: NPO/PEG TF Recommended Consultations / Follow Up: Plan to follow up 05-11-18 for further education if needed. G-Code: CL Radiologist: Dr. Anastacio Bourgeois DO Radiologist Physician [employer] Technician: Lopez SANTACRUZ Report Dictated on Final Dictated: 05/08/2018 2:50 pm Dictating Physician: MATY BROWNE CCC/FATOU MATTHEWS Signed Date and Time: 05/08/2018 3:10 pm Signed by: MATY BROWNE CCC/FATOU MATTHEWS Transcribed Date and Time: 05/08/2018 2:50 RF SWALLOWING FUNCTION Observed: 05/08/2018 Status: F Source: [employer] W/ VIDEO 2:43 PM SYSTEM REPOSITORY Patient Name: TOMY MUNSON Fluoroscopy Exam Date/Time 05/08/2018 14:56:18 EST Exam RF Swallowing Function w/ Video Ordering Physician MD AYALA DOUGLAS B Accession Number [id number] CTP4 Codes 69299 () Reason For Exam evaluate ability to swallow liquids Report MODIFIED BARIUM SWALLOW (COOKIE SWALLOW) CLINICAL INDICATION: Dysphagia. History of laryngeal cancer. Gastrostomy tube. COMPARISON: None. FLUOROSCOPY TIME: 1.40 minutes. 10 fluoroscopic loop runs were obtained. TECHNIQUE: The procedure was performed in conjunction with speech therapy. Barium mixtures of various consistencies were given under fluoroscopy with the patient in the sitting lateral position. FINDINGS: Preparatory phase shows decreased oral motor skills. Oral phase is unremarkable. Pharyngeal phase shows increased residuals in the valleculae and increased residuals in the piriform sinuses. There is coating of the pharyngeal woo, weakness of pharyngeal wall, weakness of the tongue base, reduced laryngeal elevation, and reduced epiglottic deflection. There is coating of back the epiglottis and silent vocal cord penetration. There is no airway aspiration. There is hypertrophy of the cricopharyngeus. IMPRESSION: Silent vocal cord penetration, but no airway aspiration. Hypertrophy of the cricopharyngeus. Please refer to the speech pathologist's report for additional comments and recommendations. Report Dictated on Final Dictated: 05/08/2018 2:40 pm Dictating Physician: DO BOURGEOIS ALFRED Signed Date and Time: 05/08/2018 3:17 pm Signed by: DO BOURGEOIS ALFRED Transcribed Date and Time: 05/08/2018 2:43 12 LEAD ELECTROCARDIOGRAM Observed: 05/08/2018 Status: F Source: [facility] 1:46 PM [facility] REPOSITORY [facility] Cardiovascular Services [address] [place] [address] 12 Lead EKG 05/05/18 1846 MR#: [id number] Acct: [id number] Name: TOMY MUNSON Rep #: [id number] : 1955 62 From: Neal Jaimes MD Attending Dr: Status: DEP ER Ordering Dr: Leah Hdz MD Date: 05/05/18 Location: ED Sex: M C Admitted: Test Reason : WEAKNESS Blood Pressure : / mmHG Vent. Rate : 097 BPM Atrial Rate : 097 BPM P-R Int : 112 ms QRS Dur : 080 ms QT Int : 312 ms P-R-T Axes : 075 078 070 degrees QTc Int : 396 ms Normal sinus rhythm Normal ECG Confirmed by NEAL JAIMES MD ([id number]), editor in chief newspaper BLANCA NICOLAS ([id number]) on 05/08/2018 1:46:36 PM Referred By: FLORENTINO Confirmed By:NEAL JAIMES MD 05/08/18 1346 Date Neal Jaimes MD CC: ROYCE Sarmiento; Leah Hdz MD Signed VANCOMYCIN TROUGH Collected: 05/08/2018 Status: F Source: [employer] 12:55 PM SYSTEM REPOSITORY TYPE CODE TESTS RESULT OUT OF REFERENCE UNITS RANGE LAB VNCT 15.0-20.0 ug/mL Low Vancomycin 8.4 Trough Result Comment: . Performed By: #### VANCT #### [facility] [address] [place] [phone] HEMOGRAM W/ AUTODIFF Collected: 05/08/2018 Status: F Source: [employer] 6:00 AM SYSTEM REPOSITORY TYPE CODE TESTS RESULT OUT OF REFERENCE UNITS RANGE LAB IWBC 3.6-10.7 10*3/uL WBC Normal 5.7 LAB RBC 4.40-5.90 10*6/uL Low RBC 2.72 LAB HGB 13.0-18.0 g/dL Low Hemoglobin 9.8 LAB HCT 40.0-52.0 % Low Hematocrit 28.3 LAB MCV 80.0-98.0 fL MCV High 103.7 LAB MCH 26.0-34.0 pg MCH High 36.0 LAB MCHC 32.0-36.0 % MCHC Normal 34.8 LAB RDW 11.5-14.5 % RDW High 20.2 LAB PLT 140-440 10*3/uL Platelet Normal 169 LAB MPV 7.4-10.4 fL Low MPV 7.1 LAB GRAN% 40.0-80.0 % Granulocytes High 94.9 LAB LYMP% 20.0-40.0 % Low Lymphocytes 1.1 LAB MONO% 2.0-10.0 % Monocytes Normal 3.3 LAB EOS% 1.0-6.0 % Low Eosinophils 0.0 LAB BAS% 0.0-2.0 % Basophils Normal 0.7 LAB ANC 1.8-7.0 10*3/uL Abs Normal Neutrophile Cnt 5.4 LAB ALC 1.0-4.3 10*3/uL Low Abs Lymph Cnt 0.1 LAB AMC 0.0-0.8 10*3/uL Abs Monocyte Normal Cnt 0.2 LAB AEC 0.0-0.5 10*3/uL Abs Eosin Cnt Normal 0.0 LAB ABC 0.0-0.2 10*3/uL Abs Baso Cnt Normal 0.0 Performed By: #### HEMDF, BMP3 #### [employer] [facility] [address] [place] [phone] BASIC METABOLIC PANEL Collected: 05/08/2018 Status: F Source: [employer] 6:00 AM SYSTEM REPOSITORY TYPE CODE TESTS RESULT OUT OF REFERENCE UNITS RANGE LAB NA3 135-145 mmol/L Low Sodium 132 Result Comment: NOTE: New Sodium Reference Range effective 2018 @ 10:00 LAB K3 3.5-5.1 mmol/L Normal Potassium 4.6 LAB CL3 98-107 mmol/L Low Chloride 94 LAB CO23 22-30 mmol/L High Carbon Dioxide 32 LAB ANIN3 NA Anion Gap 7 LAB GLUC3 70-100 mg/dL High Glucose 109 LAB BUN3 7-20 mg/dL High Urea Nitrogen 39 LAB CRET3 0.52-1.25 mg/dL Normal Creatinine 0.89 LAB GF3BR >60 mL/min eGFR > 60.0 LAB GF3WR >60 mL/min eGFR OTHER > 60.0 Result Comment: Source- MDRD equation with creatinine calibration to IDMS(NKDEP) eGFR not recommended for drug dose adjustment LAB CA3 8.4-10.4 mg/dL Normal Calcium 8.9 Performed By: #### HEMDF, BMP3 #### [facility] [address] [place] [address] Observed: 05/07/2018 Status: F Source: [employer] STREP PNEUMO ANTIGEN, 5:13 PM SYSTEM REPOSITORY URINE Order Comment: Specimen Source Comment:Urine, clean catch STREP PNEUMO ANTIGEN, URINE --> Status: F Strep pneumo antigen NOT DETECTED. Performed By: #### ROBYN DENTON #### [facility] [address] [place] [address] Observed: 05/07/2018 Status: F Source: [employer] LEGIONELLA AG, URINE 5:13 PM SYSTEM REPOSITORY Order Comment: Specimen Source Comment:Urine, clean catch LEGIONELLA AG, URINE --> Status: F Legionella antigen NOT DETECTED. Performed By: #### ROBYN DENTON #### [facility] [address] [place] [phone] HEMOGRAM W/ AUTODIFF Collected: 05/07/2018 Status: F Source: [employer] 5:45 AM SYSTEM REPOSITORY TYPE CODE TESTS RESULT OUT OF REFERENCE UNITS RANGE LAB IWBC 3.6-10.7 10*3/uL WBC Normal 4.4 LAB RBC 4.40-5.90 10*6/uL Low RBC 2.55 LAB HGB 13.0-18.0 g/dL Low Hemoglobin 9.2 LAB HCT 40.0-52.0 % Low Hematocrit 26.5 LAB MCV 80.0-98.0 fL MCV High 104.2 LAB MCH 26.0-34.0 pg MCH High 36.1 LAB MCHC 32.0-36.0 % MCHC Normal 34.6 LAB RDW 11.5-14.5 % RDW High 20.6 LAB PLT 140-440 10*3/uL Platelet Normal 141 LAB MPV 7.4-10.4 fL MPV Normal 7.6 LAB GRAN% 40.0-80.0 % Granulocytes High 96.9 LAB LYMP% 20.0-40.0 % Low Lymphocytes 1.0 LAB MONO% 2.0-10.0 % Monocytes Normal 2.1 LAB EOS% 1.0-6.0 % Low Eosinophils 0.0 LAB BAS% 0.0-2.0 % Basophils Normal 0.0 LAB ANC 1.8-7.0 10*3/uL Abs Normal Neutrophile Cnt 4.2 LAB ALC 1.0-4.3 10*3/uL Low Abs Lymph Cnt 0.0 LAB AMC 0.0-0.8 10*3/uL Abs Monocyte Normal Cnt 0.1 LAB AEC 0.0-0.5 10*3/uL Abs Eosin Cnt Normal 0.0 LAB ABC 0.0-0.2 10*3/uL Abs Baso Cnt Normal 0.0 Performed By: #### HEMDF, BMP3, RBCMO, PCAL #### [facility] [address] [place] [phone] BASIC METABOLIC PANEL Collected: 05/07/2018 Status: F Source: [employer] 5:45 AM SYSTEM REPOSITORY TYPE CODE TESTS RESULT OUT OF REFERENCE UNITS RANGE LAB NA3 135-145 mmol/L Low Sodium 132 Result Comment: NOTE: New Sodium Reference Range effective 2018 @ 10:00 LAB K3 3.5-5.1 mmol/L Normal Potassium 4.4 LAB CL3 98-107 mmol/L Low Chloride 97 LAB CO23 22-30 mmol/L Normal Carbon Dioxide 26 LAB ANIN3 NA Anion Gap 8 LAB GLUC3 70-100 mg/dL High Glucose 124 LAB BUN3 7-20 mg/dL High Urea Nitrogen 35 LAB CRET3 0.52-1.25 mg/dL Normal Creatinine 0.95 LAB GF3BR >60 mL/min eGFR > 60.0 LAB GF3WR >60 mL/min eGFR OTHER > 60.0 Result Comment: Source- MDRD equation with creatinine calibration to IDMS(NKDEP) eGFR not recommended for drug dose adjustment LAB CA3 8.4-10.4 mg/dL Normal Calcium 8.6 Performed By: #### HEMDF, BMP3, RBCMO, PCAL #### [facility] [address] [place] [phone] RBC MORPHOLOGY Collected: 05/07/2018 Status: F Source: [employer] 5:45 AM SYSTEM REPOSITORY TYPE CODE TESTS RESULT OUT OF REFERENCE UNITS RANGE LAB RBMOR NA RBC Morphology ABNORMAL LAB ANISO NA Anisocytosis Moderate LAB POIK NA Poikilocytosis Slight LAB MACRO NA Macrocytosis Slight LAB MICRO NA Microcytosis Slight LAB SCHIS NA Schistocytes Slight LAB SPHER NA Spherocytes Slight Performed By: #### HEMDF, BMP3, RBCMO, PCAL #### [facility] [address] [place] [address] PROCALCITONIN Collected: 05/07/2018 Status: F Source: [employer] 5:45 AM SYSTEM REPOSITORY TYPE CODE TESTS RESULT OUT OF RANGE REFERENCE UNITS LAB PRO <0.10 ng/mL Procalcitonin Abnormal 0.41 LAB INT3 NA Interpretation See Below Result Comment: PCT <0.50 = Low risk of severe sepsis and/or septic shock. PCT >2.00 = High risk of severe sepsis and/or septic shock. Performed By: #### HEMDF, BMP3, RBCMO, PCAL #### [facility] [address] [place] [address] CREATININE Collected: 05/06/2018 Status: F Source: [employer] 11:30 AM SYSTEM REPOSITORY TYPE CODE TESTS RESULT OUT OF RANGE REFERENCE UNITS LAB CRET3 0.52-1.25 mg/dL Normal Creatinine 1.03 LAB GF3BR >60 mL/min eGFR > 60.0 LAB GF3WR >60 mL/min eGFR OTHER > 60.0 Result Comment: Source- MDRD equation with creatinine calibration to IDMS(NKDEP) eGFR not recommended for drug dose adjustment Performed By: #### CRTN3 #### [facility] [address] [place] [address] MRI BRAIN W/ CONTRAST Observed: 05/06/2018 Status: F Source: [employer] 11:12 AM SYSTEM REPOSITORY Patient Name: TOMY MUNSON MRI Exam Date/Time 05/06/2018 10:42:59 EST Exam MRI Brain w/ Contrast Ordering Physician MD MERRY, YOKO B Accession Number [id number] CPT4 Codes 95218 () Reason For Exam LUNG CANCER, NON-SMALL CELL, STAGING Report HISTORY: 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 FINDINGS: Examination compared to last exam 11 days ago and shows slightly increasing vasogenic edema surrounding the known large metastatic lesions in the right cerebellar hemisphere, right parietal, and right occipital lobes A tiny ring-enhancing 4-5 mm lesion is now apparent in the left parietal lobe subcortical white matter Report Dictated on Final Dictated: 05/06/2018 11:12 am Dictating Physician: MD SOLIMAN WILLIAM Signed Date and Time: 05/06/2018 11:18 am Signed by: MD SOLIMAN WILLIAM Transcribed Date and Time: 05/06/2018 11:12 EMERGENCY DEPARTMENT Observed: 05/06/2018 Status: F Source: [facility] SUMMARY 1:[address] [facility] Medical Records Department [address] [place] [address] Emergency Department Summary 05/05/18 2157 MR#: [id number] Acct: [id number] Name: TOMY MUNSON Rep #: [id number] : 1955 62 From: Leah Hdz MD PCP: ROYCE Montero Status: DEP ER - ER Visit Summary Date of Service: 05/05/18 Chief Complaint: Weakness History of Present Illness: The patient is a 62 M with known lung/esophageal cancer with metastatic lesions to his brain. He is supposed to begin chemo/radiation this coming week. Patient states yesterday his left arm was intermittently weak but today has been flaccid. He has not been able to feed himself. Physical Examination: Blood pressure is 136/67, temperature 101.4, heart rate 97, respiratory rate 18, pulse ox 96% on room air. Patient is a cachectic appearing gentleman. Head neck examination grossly unremarkable. Heart is regular rate and rhythm. Lungs sounds are diminished at the bases. Abdomen is soft and nontender. PEG tube is in place. Neuro exam reveals his left arm to be flaccid. He does have intact shoulder shrug. He has strong distal pulses and has good sensation on testing. Test Results: Chest x-ray reveals left lower lobe infiltrate. EKG is sinus at 97 with no sign of acute ischemia. CBC was normal white count. Hemoglobin is 11 and platelet count is 136,000. Chemistry studies reveal glucose of 71. Coags normal. LFTs normal. Lactate normal. CT the head shows right cerebral mass lesions with vasogenic edema with interval increase in size since the previous study. Emergency Department Course and Treatment: Patient was given Tylenol for his fever. Patient was given Zosyn and vancomycin following chest x-ray. He is given a dose of IV Decadron following his head CT. Blood cultures were sent. Test results were discussed with the patient's oncologist, Dr. Leigh. He advises the patient could stay here for treatment of his pneumonia or we could transfer to [facility] where he is to begin his radiation therapy. After speaking with the patient he would prefer transfer to [facility]. Patient was accepted by Dr. Anderson. Treatment Plan: [] Disposition: Transfer Impression: 1. Esophageal/lung cancer with metastatic brain lesions 2. Flaccid left arm 3. Pneumonia This note was generated with [employer] dictation software. It may contain incorrect words, spelling, and punctuation that were not noted in review of the chart prior to signing ED Disposition - Plan for ED Patient: Disposition: [facility] Chief Complaint: Weakness Referrals: Alfred Sarmiento, ROYCE [Primary Care Provider] - What to do if you have Problems For any increased pain, shortness of breath, bleeding, nausea or vomiting, chest pain, or any unexpected problems, contact your Primary Care Provider. Call [facility] ([phone]) or report to the closest Emergency Room. Call 911 if necessary. 05/06/18 0157 <Electronically signed by Leah Hdz MD> Date Leah Hdz MD Cosigner Signature (If Indicated): Date CC: ROYCE Sarmiento Observed: 05/05/2018 Status: F Source: [place] CULTURE, BLOOD (WB) 7:02 PM [facility] REPOSITORY BC No growth in 5 days. Performed By: #### M200.1000 #### [facility] [address] [place], [address] LACTIC ACID Collected: 05/05/2018 Status: F Source: [place] 6:40 PM [facility] REPOSITORY Order Comment: Yes/No query for Sepsis Lactate Rule Y TYPE CODE TESTS RESULT OUT OF RANGE REFERENCE UNITS LAB L503.6005 0.4-2.0 mmol/L Normal LACTIC ACID 0.7 Performed By: #### L503.6005 #### [facility] [address] [place], [address] BASIC METABOLIC Collected: 05/05/2018 Status: F Source: [place] PROFILE (BMP) 6:40 PM [facility] REPOSITORY TYPE CODE TESTS RESULT OUT OF RANGE REFERENCE UNITS LAB L501.0100 74-106 mg/dL Low GLU 71 Result Comment: Please note revised GLUCOSE reference range effective 2017. LAB L501.1000 7-18 mg/dL High BUN 45 LAB L501.1100 0.70-1.30 mg/dL Normal CREAT,SERUM 1.09 Result Comment: The validity of the calculated GFR AND GFRAA in patients over 70 years has not been determined. Clinical correlation is essential. LAB L501.1110 >60 mL/min Normal EST GFR 73 Result Comment: Non- GFR Calc LAB L501.1115 >60 mL/min Normal EST GFR - AA 88 Result Comment: GFR Calc LAB L501.1255 ml/min Normal Estimated CRCL 49.59 LAB L501.1300 10-20 RATIO High BUN/CRE 41.3 LAB L501.2200 8.5-10 mg/dL Normal .1 CA 8.6 LAB L501.5300 136-14 mmol/L Low 5 NA 134 LAB L501.5600 3.5-5. mmol/L Normal 1 K 3.8 LAB L501.5900 98-107 mmol/L Low CL 96 LAB L501.6100 21.0-3 mmol/L Normal 2.0 CO2 30.0 LAB L501.6200 5-15 Normal GAP 8 Performed By: #### L500.2500, L500.3400 #### [facility] [address] [place], [place], [id number] LIVER PROFILE Collected: 05/05/2018 Status: F Source: [place] 6:40 PM [facility] REPOSITORY TYPE CODE TESTS RESULT OUT OF RANGE REFERENCE UNITS LAB L501.1500 6.4-8.2 g/dL Low T PROT 6.0 LAB L501.1800 3.2-5.0 g/dL Low ALB 2.9 LAB L501.1950 2.2-4.2 g/dL Normal GLOB 3.1 LAB L501.4100 15-37 U/L Normal AST 19 LAB L501.4305 45-117 U/L Normal ALK P 57 LAB L501.4405 16-61 U/L Normal ALT 22 LAB L501.4600 0.20-1.00 mg/dL Normal T BILI 0.60 LAB L501.4700 0.00-0.30 mg/dL Normal D BILI 0.21 Performed By: #### L500.2500, L500.3400 #### [facility] [address] [place], [place], [address] CBC W/DIFF, AUTOMATED Collected: 05/05/2018 Status: F Source: [place] 6:40 PM [facility] REPOSITORY TYPE CODE TESTS RESULT OUT OF RANGE REFERENCE UNITS LAB L100.1000 4.4-11.0 K/mm3 Normal WBC 5.5 LAB L100.1200 4.6-6.2 M/mm3 Low RBC 3.20 LAB L100.1300 13.0-16.5 g/dl Low HGB 11.0 LAB L100.1400 40-54 % Low HCT 33.6 LAB L100.1500 80-94 fL High MCV 105.0 LAB L100.1600 27.0-32.0 pg High MCH 34.4 LAB L100.1700 32-36 g/gl Normal MCHC 32.7 LAB L100.1810 11.6-14.6 % High RDW CV 19.0 LAB L100.1820 35.1-43.9 fl High RDW SD 73.2 LAB L100.1900 150-450 K/mm3 Low PLT 136 LAB L100.2000 6.2-12.0 fl Normal MPV 9.4 LAB L100.2100 47-70 % High NEUT% 94.1 LAB L100.2200 19-41 % Low LY% 4.0 LAB L100.2300 0-10 % Normal MONO% 0.4 LAB L100.2400 0-5 % Normal EO% 1.3 LAB L100.2500 0-1 % Normal BASO% 0.0 LAB L100.2550 0.0-0.9 % Normal IM GRAN % 0.200 Result Comment: IG% - Immature Granulocytes (promyelocytes, myelocytes and metamyelocytes) > 1% indicates that a LEFT SHIFT is Present. LAB L100.2620 2.0-7.7 X10 3/uL Normal Absolute Neut 5.2 LAB L100.2720 0.83-4.51 X10 3/ul Low Absolute Lymph 0.22 LAB L100.4500 SMEAR Normal COMMENT Result Comment: LYMPHOPENIA AND LEFT SHIFT NOTED LAB L100.5500 ADEQ Normal PLT EST SLT DEC LAB L100.7300 Normal ANISO 1+ LAB L100.7800 Normal MACROCYTE 1+ Performed By: #### L100.0100 #### [facility] [address] [facility] [place], [place], [id number] PROTHROMBIN TIME W/INR Collected: 05/05/2018 Status: F Source: [place] 6:40 PM [facility] REPOSITORY TYPE CODE TESTS RESULT OUT OF RANGE REFERENCE UNITS LAB L300.4150 11.7-14.9 SECONDS Normal PROTIME 13.1 LAB L300.4200 Normal INR 1.0 Performed By: #### L300.3900, L300.4310 #### [facility] [address] [place], [address] PARTIAL THROMBOPLAST Collected: 05/05/2018 Status: F Source: [facility] TIME 6:40 PM [facility] REPOSITORY TYPE CODE TESTS RESULT OUT OF RANGE REFERENCE UNITS LAB L300.4310 24.1-36.2 Seconds Normal PTT 33.6 Performed By: #### L300.3900, L300.4310 #### [facility] [address] [place], [address] Observed: 05/05/2018 Status: F Source: [place] CULTURE, BLOOD (WB) 6:40 PM [facility] REPOSITORY BC No growth in 5 days. Performed By: #### M200.1000 #### [facility] [address] [place], [place], [address] CHEST 1 VIEW Observed: 05/05/2018 Status: F Source: [place] (PORTABLE) 6:36 PM [facility] REPOSITORY [facility] Imaging Services [address] [place] [address] Chest 1 View (Portable) MR#: [id number] Acct: [id number] Name: TOMY MUNSON Rep #: [id number] : 1955 62 From: Jeffery Suárez MD PCP: ROYCE Montero Status: REG ER Study: Chest 1 View (Portable) Date of Exam: 05/05/18 Exam# [id number] Ordering Dr: Leah Hdz MD STUDY: X-RAY CHEST REASON FOR EXAM: Male, 62 years old. Weakness, fever, dehydration TECHNIQUE: Single AP portable view of the chest. COMPARISON: Prior study of 12/24/2017 FINDINGS: quality assurance monitor body leads are present. There is a left-sided MediPort with catheter tip superimposed on the distal SVC. The right lung is mildly hyperinflated. There is an infiltrate of the left lower lobe. There is evidence of left hemithoracic volume loss. There is no demonstrated pleural abnormality. Normal size heart. Normal mediastinum and tashia. Normal visualized pulmonary arteries. There are calcified plaques of the aortic arch. Normal visualized thoracic spine. Normal visualized ribs, clavicles, and shoulders. There is no demonstrated abnormality of the visualized soft tissue structures of the upper abdomen. RAD/Chest 1 View (Portable) IMPRESSION: Left lower lobe infiltrate. There is evidence of left hemithoracic volume loss. The right lung is hyperinflated. Calcified plaques of the aortic arch. A left-sided MediPort is seen with catheter tip superimposed on the distal SVC. Electronically Signed: Jeffery Suárez MD at 19:18 EST , Service support , CC: ROYCE Sarmiento; Leah Hdz MD [employer] Driver: Signed BRAIN/HEAD WITHOUT Observed: 05/05/2018 Status: F Source: [place] CONTRAST 6:36 PM [facility] REPOSITORY [facility] Imaging Services [address] [place] [address] Brain/Head without Contrast MR#: [id number] Acct: [id number] Name: TOMY MUNSON Rep #: [id number] : 1955 62 From: Paulino Martinez DO PCP: ROYCE Montero Status: REG ER Study: Brain/Head without Contrast Date of Exam: 05/05/18 Exam# [id number] Ordering Dr: Leah Hdz MD STUDY: CT BRAIN WITHOUT CONTRAST REASON FOR EXAM: Male, 62 years old. Weakness, history cephalgia and lung CA with metastases to the brain RADIATION DOSAGE (If Supplied By Facility): CTDIvol = ( 44.99 ) mGy, DLP = ( 829.85 ) mGycm TECHNIQUE: Transaxial CT imaging of the brain was performed without administration of intravenous contrast material. Individualized dose optimization techniques were used for this CT. COMPARISON: April 06, 2018 FINDINGS: Normal soft tissue structures. Normal calvarium. Normal size ventricles and extra-axial spaces for the patient's age. There are at least 2 right cerebral lesions noted with surrounding vasogenic edema. The lesions demonstrate slight enlargement since the previous study. Correlation with MRI is recommended if needed to determine interval progression. Normal basal ganglia and thalami. Normal brainstem. Normal cerebellum. There is no intracranial hemorrhage. There are no findings of an acute ischemic infarction. Paranasal sinus disease. CT/Brain/Head without Contrast IMPRESSION: Right cerebral mass lesions with vasogenic edema with interval increase in size since the previous study. Correlate with MRI is recommended to determine interval progression. Electronically Signed: Paulino Martinez DO at 19:55 EST Tel [phone], Service support , CC: ROYCE Sarmiento; Leah Hdz MD [employer] Driver: Signed RADIATION ONC INIT Observed: 04/29/2018 Status: F Source: [employer] 10:48 AM SYSTEM REPOSITORY PATIENT: TOMY MUNSON DATE OF SERVICE: 04/15/2018 : 1955 AGE: 62 Electronically Authenticated Yoko Stiles MD 04/30/2018 11:22 A REFERRING PHYSICIAN: DEXTER CRESPO DO DIAGNOSIS: MR. MUNSON is a 62-year-old gentleman with multifocal brain metastasis. HISTORY OF PRESENT ILLNESS: We are asked by Dr. Dr. Crespo to see the patient in consideration of the above. 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 He then subsequently had a CT chest done in December of 2016, which demonstrated a mass in the left lower lobe for which he underwent a CT guided biopsy demonstrating pneumocyte hyperplasia with mild atypia, but no evidence of malignancy. On April 07, 2017, the left lower mass had enlarged in size and surveillance CT chest once again in June of 2017 showed increased in size once again with a prominent left hilar lymph node. On September 26, 2017, he underwent bronchoscopy with EBUS with pathology demonstrating a fragment of necrotic material with atypical squamous cell, suspicious for carcinoma. MRI of brain done on October 14, 2017 was negative. PET-CT scan on October 16, 2017 showed newly defined hep avidity in the left mid lower posterior lateral hemithorax as well as precarinal posterior mediastinum and left thoracic perihilum. There was also an effusion, which was negative, but Pleurx catheter was placed. He then in October of 2017 had a volume loss in the left chest with mediastinal shift towards the left and given this, initiated chemoradiation of the left lung and hilar disease consisting of 60 Gy in 30 fractions, completed in December 2017. He then initiated consolidative CarboTaxol in January 2018, however, was admitted in March of 2018 with 3-day history of nausea and vomiting, and left hand weakness/seizure activity. CT head showed 3 lesions with associated edema. He had an MRI of the brain done in March 2018, which showed 3 ring enhancing lesions that are compatible with metastatic disease. Currently, the patient continues on Decadron as well as antiepileptic, though he does not have the doses available for me. He will follow up with me on those. He denies current headache, nausea, or vomiting. He continues to have weakness in the left hand, dropping thing more commonly. He continues to use his PEG tube primarily for nutritional intake. The patient has a prior history of radiotherapy as above. He denies any history of connective tissue diseases including scleroderma. PAST MEDICAL HISTORY: 1. Larynx cancer as above. 2. Lung cancer as above. 3. Atrial fibrillation. 4. Hypothyroidism. PAST SURGICAL HISTORY: 1. PEG tube placement. 2. Hernia repair. 3. Left wrist surgery. ALLERGIES: THESE WERE REVIEWED WITHIN [facility]. MEDICATIONS: These were reviewed within [facility]. FAMILY HISTORY: No familial history of head and neck malignancy, lung cancer. SOCIAL HISTORY: The patient lives with his family member. He denies current tobacco or alcohol use. REVIEW OF SYSTEMS: Complete 12-point review of systems was performed, pertinent positives and negatives are those per in the history of present illness. All other systems reviewed and negative. PHYSICAL EXAMINATION: Vital Signs: These were reviewed within [facility]. General: No acute distress, alert and oriented x3, pleasant. HEENT: Atraumatic, normocephalic. Neck: Supple. Lymph Nodes: No palpable supraclavicular or cervical adenopathy appreciated. Chest: Symmetric. Respiratory: Clear to auscultation bilaterally. Heart: Regular rate and rhythm. Abdomen: Soft, nontender. Extremities: No lower or upper extremity. Neurologic: No focal motor or sensory deficits appreciated. Psychiatric: Appropriate affect, goal oriented speech. IMAGING STUDIES: As documented above in HPI. I personally reviewed the most recent MRI of brain from an outside hospital. ASSESSMENT: MR. MUNSON is a 62-year-old gentleman with a history of metachronous Stage TAWNY supraglottic larynx cancer, status post chemoradiation with then at least clinical Stage IIIB locally advanced squamous cell carcinoma of lung, status post chemoradiation, now with 3 brain metastases, with clinical improvement on Decadron as well as antiepileptic. He is clinically reasonably well. His ECOG performance status is 1. I reviewed with the patient the role for the treatment paradigm for brain metastasis, including whole brain radiotherapy versus stereotactic approaches. Given his age and overall health, a stereotactic approach may be most reasonable. In regards to that, I will coordinate for BrainLab MRI for stereotactic planning in conjunction with Dr. Westfall of Neurosurgery. I reviewed the logistics of this, including CT simulation as well as daily therapy. I reviewed the acute and late side effects of therapy as well. All his questions were answered to his satisfaction. He would like to proceed, and sign the informed sheet to that effect. PLAN: 1. Schedule BrainLab MRI. 2. Pending the above, scheduled CT simulation with subsequent treatment planning for stereotactic radiosurgery and fractionated stereotactic radiation therapy. Thank you for involving me in the care of this patient. Should any questions or concerns arise, please feel free to contact me. [email or web address] Job ID: [id number] Yoko Stiles MD DOD:04/29/2018 10:48 A ABD/yaw DOT:04/29/201801:35 P MRI BRAIN W/ CONTRAST Observed: 04/24/2018 Status: F Source: [employer] 2:14 PM SYSTEM REPOSITORY Patient Name: TOMY MUNSON MRI Exam Date/Time 04/24/2018 10:29:47 EST Exam MRI Brain w/ Contrast Ordering Physician MD MERRY, YOKO Tovar Accession Number [id number] CPT4 Codes 08988 () Reason For Exam brain mets Report Examination: MRI brain with and without gadolinium Indication: brain mets Technique: High-resolution T1 axial images through the brain were obtained following intravenous administration of 10 mL Multihance. Findings: There is a rim enhancing lesion within the right parietal lobe which measures approximately 1.9 x 1.8 cm. There is adjacent parenchymal edema. There is an additional lesion within the right occipital lobe which measures approximately 2.8 x 2.9 cm in axial dimensions. Large amount of adjacent parenchymal edema is noted adjacent to this lesion as well. There is an additional rim-enhancing lesion within the right cerebellar hemisphere on coronal image 20 which measures 9 mm no significant adjacent parenchymal edema is present. No significant midline shift is present. The ventricles, sulci and cisterns are otherwise unremarkable. The brainstem is grossly unremarkable. The orbits are unremarkable. Impression: Intracranial metastatic mass lesions within the right parietal lobe, right occipital lobe and smaller lesion in the right cerebellar hemisphere. Report Dictated on Final Dictated: 04/24/2018 2:14 pm Dictating Physician: MD LIZARRAGA KRIKOR Signed Date and Time: 04/24/2018 2:17 pm Signed by: MD LIZARRAGA KRIKOR Transcribed Date and Time: 04/24/2018 2:14 MRI BRAIN W/ + W/O Observed: 04/24/2018 Status: F Source: [employer] 2:10 PM SYSTEM REPOSITORY Patient Name: TOMY MUNSON MRI Exam Date/Time 04/24/2018 10:30:24 EST Exam MRI Brain w/ + w/o Contrast Ordering Physician MD MERRY, YOKO B Accession Number [id number] CPT4 Codes 30760 () Reason For Exam brain mets Report Examination: MRI brain with and without gadolinium Indication: brain mets Technique: Multi-planar multi-sequence MRI images of the brain were obtained, including gradient echo, T2 and flair axial images, T1 sagittal and coronal images, in addition to diffusion/ADC map. Post gadolinium T1 axial and coronal images were also acquired following intravenous administration of 10 mL Multihance. Findings: There is a rim enhancing lesion within the right parietal lobe which measures approximately 1.7 cm. There is adjacent parenchymal edema. There is an additional lesion within the right occipital lobe which measures approximately 2.7 x 2 x 3.5 cm in axial and craniocaudad dimensions. Large amount of adjacent parenchymal edema is noted adjacent to this lesion as well. There is an additional rim-enhancing lesion within the right cerebellar hemisphere on coronal image 20 which measures 1 cm. No significant adjacent parenchymal edema is present. The ventricles, sulci and cisterns are prominent, consistent with moderate diffuse parenchymal volume loss.. Mild signal changes in the periventricular white matter are present. There are a few small foci of increased T2 signal abnormality in the subcortical white matter. There are no extra-axial fluid collections. The paranasal sinuses and mastoid air cells are grossly clear. The bilateral orbits are grossly unremarkable. There is no abnormal diffusion restriction to suggest acute ischemia/infarct. Impression: Rim-enhancing mass lesions within the right parietal lobe, right occipital lobe and right cerebellar hemisphere, consistent with intracranial metastatic disease. There is adjacent parenchymal edema. Report Dictated on Final Dictated: 04/24/2018 2:10 pm Dictating Physician: MD LIZARRAGA KRIKOR Signed Date and Time: 04/24/2018 2:14 pm Signed by: MD LIZARRAGA KRIKOR Transcribed Date and Time: 04/24/2018 2:10 ONCOLOGY VISIT REPORT Observed: 04/16/2018 Status: F Source: [facility] 2:27 PM [facility] REPOSITORY [facility] [address] [place] [id number] OFFICE VISIT Date of Service: 04/16/18 1412 MR#: [id number] Acct: [id number] Name: TOMY MUNSON Rep #: [id number] : 1955 From: Nino Leigh MD Age/Sex: 62/M Location: [facility] Status: Signed Subjective - Date of Service Date of Service:: 04/16/18 - Chief Complaint F/U for NSCLC on treatment - History of Present Illness Mr. 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 He was treated with concurrent chemotherapy and Radiation. He received 3 cycles of Cisplatin 100mg/m2 from 07/04/2015-08/09/2015. He had a PET/CT done on 11/30/2015 which showed no hypermetabolic activity. PET/CT on 09/30/2016 demonstrated hypermetabolic activity within the left lower lobe and at the level of the laryngeal structures. Underwent biopsies of larynx on 11/15/16 under the care of Dr. Ascencio, pathology of which were negative. Had CT guided bx of LLL nodule on 01/02/[address] scan of chest on 09/16/2017 showed increasing Left lower lobe mass and new Left hilar mass. He was referred for EBUS + biopsy, it was done on 09/26/2017 and showed squamous cell cancer. MRI brain done on 10/14/2017 was negative for brain metastases. PET/CT on 10/16/2017 shows new hypermetabolic activity in left hemithorax with activity in precarinal area mediastinum, left perihilar area and pleural effusion. He had increase in Pleural fluid, thoracentesis showed no malignant cells. Pleurx cath was placed. He was transferred to [facility] for bronchial stenting but could not be done. He was staged as NSCLC stage IIIB. He started chemotherapy with Carboplatin and Taxol every 28 days on 11/20/2017 and Radiation therapy on 11/24/2017. He was admitted 12/07/17-12/15/17 for sepsis and infected Pleurx catheter which was removed. Required admission 12/24/09 for management of atrial flutter with RVR, discharged home on ASA 81 and cardizem. cycle 2 day 8 Taxol omitted. Received cycle 2 day 15 Taxol on 01/01/18. Finished Radiation therapy on 01/12/2018. Started consolidation chemotherapy on 01/22/2018 with Carboplatin and Taxol, C3D15 Taxol was delayed last week because of neutropenia. Finished C4D15 Taxol on 03/12/2018. He developed L sided weakness, found to have Brain metastases on MRI done on 04/07/2018. He is on Decadron, awaiting SBRT to be done at [facility]. He has been falling at home. - Past Medical/Social History Past Medical History Past Medical History: Anemia Other Past Medical History: Hyponatremia Hypothyroidism Dysphagia Hypernatremia Lymphadenitis Measles Mumps Chicken Pox Cancer: Lung cancer,Oral cancer Other Cancer History: hx of laryngeal ca 06/21/15 treated w/chemo and radiation. Past Surgical History Surgical: Hernia repair Other Surgical History: Left Wrist surgery Peg Tube Family History Paternal Past Medical History: Heart disease Maternal Past Medical History: Unknown Social History Social History: No changes Smoking Status Former smoker Review of Systems Constitutional:: Reports: Weakness, Fatigue. Denies: Fever, Sweats Cardiovascular:: Denies: Chest pain, Palpitations, Dyspnea on exertion, Orthopnea, PND, Shortness of breath Respiratory: Denies: Cough, Hemoptysis, Shortness of Breath, Wheezing Gastrointestinal:: Denies: Abdominal pain, Nausea, Vomiting, Diarrhea, Constipation, Hematochezia Genitourinary: Denies: Dysuria, Hematuria, 15, Flank pain Musculoskeletal:: Denies: Back pain, Myalgia, Arthralgia Skin: Denies: Rash, Skin Changes, Wounds Neurological:: Reports: Headache Vital Signs Height 5 ft 8 in Weight: 53.297 kg Weight in Pounds 117.5 lbs BMI 20.7 Pulse Ox 97 - Physical Exam General: Alert, Oriented x3, No apparent distress, - - sitting in wheelchair. HEENT: Atraumatic, PERRLA, EOMI, Normocephalic Cardiac:: Regular rate, Regular rhythm, Normal S1, Normal S2, - - Port R IC.. Negative for: Murmur Lungs: Clear to auscultation, Excusion symmetrical. Negative for: Rhonchi, Wheezes Laboratory Data: Laboratory Tests WBC 15.4 H (4.4-11.0) K/mm3 RBC 2.96 L (4.6-6.2) M/mm3 Hgb 10.6 L (13.0-16.5) g/dl Hct 32.4 L (40-54) % MCV 109.5 H (80-94) fL Assessment and Plan Brain metastases on Decadron. Non small cell lung cancer, squamous cell type, T4 N2 M0-stage IIIB, Pleural fluid is negative for malignant cells. Has finished Carboplatin and Taxol with Radiation and consolidation chemotherapy with Carboplatin and Taxol. History of Laryngeal CA stage TAWNY, S/P Chemoradiation therapy. Falls due brain metastases, Pt wants to stay at his home. PEG tube for feeding. Plan is to continue Decadron and proceed with SBRT. Home care referral. Return to clinic 3 wks. Medications: Prescriptions This Visit Medication Instructions Recorded Albuterol IH (ProAir) [Proair Hfa] 2 puff INHALATION Q6H PRN #1 12/18/17 Primary Care Provider: ROYCE Montero Referring Provider: - Problem List (1) History of laryngeal cancer Status: Chronic (2) Non-small cell carcinoma of left lung, stage 3 Status: Chronic (3) Chemotherapy management, encounter for Status: Chronic Code Visit Office Visits / Consults: 12327 OV L5 Est 04/16/18 1427 <Electronically signed by Nino Leigh MD> Date Nino Leigh MD Cosigner Signature: Date (if applicable) CC: CBC W/DIFF, AUTOMATED Collected: 04/16/2018 Status: F Source: [facility] 1:21 PM [facility] REPOSITORY Order Comment: Reason for Laboratory Test . TYPE CODE TESTS RESULT OUT OF RANGE REFERENCE UNITS LAB L100.1000 4.4-11.0 K/mm3 High WBC 15.4 LAB L100.1200 4.6-6.2 M/mm3 Low RBC 2.96 LAB L100.1300 13.0-16.5 g/dl Low HGB 10.6 LAB L100.1400 40-54 % Low HCT 32.4 LAB L100.1500 80-94 fL High MCV 109.5 LAB L100.1600 27.0-32.0 pg High MCH 35.8 LAB L100.1700 32-36 g/gl Normal MCHC 32.7 LAB L100.1810 11.6-14.6 % High RDW CV 19.0 LAB L100.1820 35.1-43.9 fl High RDW SD 73.8 LAB L100.1900 150-450 K/mm3 Normal PLT 289 LAB L100.2000 6.2-12.0 fl Normal MPV 9.2 LAB L100.2100 47-70 % High NEUT% 95.3 LAB L100.2200 19-41 % Low LY% 1.4 LAB L100.2300 0-10 % Normal MONO% 2.4 LAB L100.2400 0-5 % Normal EO% 0.0 LAB L100.2500 0-1 % Normal BASO% 0.1 LAB L100.2550 0.0-0.9 % Normal IM GRAN % 0.800 Result Comment: IG% - Immature Granulocytes (promyelocytes, myelocytes and metamyelocytes) > 1% indicates that a LEFT SHIFT is Present. LAB L100.2620 2.0-7.7 X10 3/uL High Absolute Neut 14.7 LAB L100.2720 0.83-4.51 X10 3/ul Low Absolute Lymph 0.22 LAB L100.7300 ANISO Normal 1+ LAB L100.7800 Normal MACROCYTE 1+ Performed By: #### L100.0100 #### [facility] [address] [place], [address] COMPREHENSIVE METABOLIC Collected: 04/16/2018 Status: F Source: [facility] 1:21 PM [facility] REPOSITORY Order Comment: Reason for Laboratory Test . TYPE CODE TESTS RESULT OUT OF RANGE REFERENCE UNITS LAB L501.0100 74-106 mg/dL High GLU 215 Result Comment: Glucose result greater than or equal to 200 mg/dL suggests DIABETES MELLITUS per A.D.A. criteria. Please note revised GLUCOSE reference range effective 2017. LAB L501.1000 7-18 mg/dL High BUN 54 LAB L501.1100 0.70-1.30 mg/dL Normal CREAT,SERUM 1.26 Result Comment: The validity of the calculated GFR AND GFRAA in patients over 70 years has not been determined. Clinical correlation is essential. LAB L501.1110 >60 mL/min Normal EST GFR 62 Result Comment: Non- GFR Calc LAB L501.1115 >60 mL/min Normal EST GFR - AA 75 Result Comment: GFR Calc LAB L501.1255 ml/min Normal Estimated CRCL 45.82 LAB L501.1300 10-20 RATIO High BUN/CRE 42.9 LAB L501.1500 6.4-8. g/dL Normal 2 T PROT 6.5 LAB L501.1800 3.2-5. g/dL Normal 0 ALB 3.4 LAB L501.1950 2.2-4. g/dL Normal 2 GLOB 3.1 LAB L501.2000 0.9-2. RATIO Normal 4 A/G 1.1 LAB L501.2200 8.5-10 mg/dL Normal .1 CA 8.8 LAB L501.4100 15-37 U/L Normal AST 37 LAB L501.4305 45-117 U/L Normal ALK P 67 LAB L501.4405 16-61 U/L Normal ALT 60 LAB L501.4600 0.20-1 mg/dL Normal .00 T BILI 0.50 LAB L501.5300 136-14 mmol/L Low 5 NA 134 LAB L501.5600 3.5-5. mmol/L Normal 1 K 3.8 LAB L501.5900 98-107 mmol/L Low CL 95 LAB L501.6100 21.0-3 mmol/L Normal 2.0 CO2 30.0 LAB L501.6200 5-15 Normal GAP 9 Performed By: #### L500.4050, L501.9520 #### [facility] [address] [place], [place], [address] THYROID STIM HORMONE Collected: 04/16/2018 Status: F Source: [facility]) 1:21 PM [facility] REPOSITORY Order Comment: Reason for Laboratory Test . TYPE CODE TESTS RESULT OUT OF RANGE REFERENCE UNITS LAB L501.9520 0.358-3.74 uIU/mL Low TSH 0.19 Performed By: #### L500.4050, L501.9520 #### [facility] [address] [place], [address] CONSULTATION Observed: 04/08/2018 Status: F Source: [facility] 12:23 PM [facility] REPOSITORY [facility] Medical Records Department [address] [place] [id number] Consultation 04/07/18 1241 MR#: [id number] Acct: [id number] Name: TOMY MUNSON Rep #: [id number] : 1955 62 From: Melina Feliciano MD PCP: ROYCE Montero Status: DIS IN Y Location: [facility] [place] LL105-9 Problem List (1) Seizure Status: Acute (2) Metastatic cancer to brain Status: Acute Reason for Consult Date of Consultation: 04/07/18 Reason for Consultation: seizure, brain mets History of Present Illness: The patient is a 62 year old CM with PMH H/O Laryngeal cancer s/p radiation/chemotherapy, H/O lung cancer s/p chemotherapy, radiation, Afib not on AC, S/P PEG placement, H/O tobacco abuse admitted with weakness and seizure. Per patient he had left arm cramping followed by incoordinated and rhythmic swinging movements of the left arm lasting for about 2-3 mins, without any loss of awareness, tongue bite or post ictal state, occurred about 2 times in the last week, left arm got stiff during the event per patient, but denies any GTCs or staring off episodes. Documentation of possible left arm weakness since the events. MRI brain done during this admission showed mets to the right frontal, right occipital and right cerebellum with vasogenic edema and mass effect. Patient has been started on Decadron and Keppra. At present denies any JOHNS, visual disturbances, new onset focal motor weakness, sensory loss or speech disturbances. He lives alone, does drive, denies any falls, does not use cane or walker to ambulate, does not need any assistance for his ADLs. He used to smoke about 2 PPD for many years but quit about 3 yrs ago after being diagnosed with laryngeal cancer. [] Past Medical History Past Medical History (Chronic Problems): Chronic Problems (Last Reviewed 03/12/18 @ 09:24 by Jania Vallejo) PEG (percutaneous endoscopic gastrostomy) status (Chronic) Tobacco dependence in remission (Chronic) Pulmonary nodule, left (Chronic) History of laryngeal cancer (Chronic) Non-small cell carcinoma of left lung, stage 3 (Chronic) Dysphagia (Chronic) Chronic anemia (Chronic) Atrial fibrillation and flutter (Chronic) Pleural effusion (Chronic) Chemotherapy management, encounter for (Chronic) Medical History: Medical History (Last Reviewed 03/12/18 @ 09:24 by Jania Vallejo) Pain (Acute) R52 Tobacco dependence in remission (Chronic) F17.201 Pulmonary nodule, left (Chronic) R91.1 History of laryngeal cancer (Chronic) Z85.21 Non-small cell carcinoma of left lung, stage 3 (Chronic) C34.92 Dysphagia (Chronic) R13.10 Chronic anemia (Chronic) D64.9 Atrial fibrillation and flutter (Chronic) I48.91, I48.92 Pleural effusion (Chronic) J90 Chemotherapy management, encounter for (Chronic) Z51.11 Anemia D64.9 Chicken pox B01.9 Dysphagia R13.10 Hypernatremia E87.0 Hyponatremia E87.1 Hypothyroidism E03.9 Laryngeal cancer C32.9 Lymphadenitis I88.9 Measles B05.9 Mumps B26.9 Allergies Iodinated Contrast- Oral and IV Dye [CT] Allergy (Mild, Verified 04/06/18 17:24) Rash Home Medications: Ambulatory Orders Medication Instructions Recorded Albuterol IH (ProAir) [Proair Hfa] 2 puff INHALATION Q6H PRN #1 12/18/17 levothyroxine 150 mcg tablet 150 mcg GT DAILY tab 12/29/17 Surgical History: Surgical History (Last Reviewed 03/12/18 @ 09:24 by Jania Vallejo) PEG (percutaneous endoscopic gastrostomy) status (Chronic) Z93.1 Status post insertion of percutaneous endoscopic gastrostomy (PEG) tube Z93.1 port placement History of hernia repair Z98.890, Z87.19 History of thoracentesis Z98.890 LEFT WRIST SURGERY Surgical History: herniorrhaphy, - - PEG tube placement. Psychiatric History: Anxiety Smoking Status: Former smoker Alcohol: None Drugs: None - *Family History Paternal Family History: Family History (Last Reviewed 03/12/18 @ 09:24 by Jania Vallejo) Father Heart disease History Items: Heart Disease - Maternal Family History: Family History (Last Reviewed 03/12/18 @ 09:24 by Jania Vallejo) Father Heart disease History Items: No pertinent history Review of Systems Constitutional: Reports: - - complete ROS negative except as documented in HPI Patient Problems: Active and Suspected Problems (Last Reviewed 03/12/18 @ 09:24 by Jania Vallejo) Weakness (Acute) Seizure (Acute) Brain cancer (Acute) Metastatic cancer to brain (Acute) - Physical Exam General: Alert HEENT: Normocephalic Neck: Supple Lungs: Normal air movement Cardiovascular: Normal S1, Normal S2 Abdomen: Bowel Sounds Present Extremities: No cyanosis Neurological: - - consious, alert, AoA x3, CN 2-12 grossly intact, power 5/5 right UE/LE, left UE -5/5 and left LE 5/5, no sensory loss, no cerebellar signs, Reflexes + B/L B/S/T/K/A, is cachectic, gait deferred. Psych/Mental Status: Normal Affect Vital Signs Temp Pulse Resp BP Pulse Ox 97.8 F 81 18 116/62 99 04/07/18 07:30 04/07/18 07:30 04/07/18 07:30 04/07/18 07:30 04/07/18 07:30 Oxygen Delivery Method Room Air Weight: 56.7 kg Body Mass Index (BMI) 19.5 Intake and Output for Last 24 Hours Intake Total 1275 / 1275 Output Total 450 / 450 Balance 825 / 825 Laboratory Tests Past 24 Hrs WBC 4.7 RBC 2.20 L Hgb 7.7 L WBC 3.2 L RBC 2.32 L Hgb 8.2 L Hct 26.3 L MCV 113.4 H MCH 35.3 H MCHC 31.2 L RDW 19.9 H RDW Differential 78.9 H Assessment/Plan All Active Problems (Last Reviewed 03/12/18 @ 09:24 by Jania Vallejo) Weakness (Acute) Seizure (Acute) Brain cancer (Acute) Metastatic cancer to brain (Acute) Constipation (Acute) Pancytopenia (Acute) Abdominal pain (Acute) Pain (Acute) The patient is a 62 year old CM with PMH H/O Laryngeal cancer s/p radiation/chemotherapy, H/O lung cancer s/p chemotherapy, radiation, Afib not on AC, S/P PEG placement, H/O tobacco abuse admitted with weakness and seizure. Per patient he had left arm cramping followed by incoordinated and rhythmic swinging movements of the left arm lasting for about 2-3 mins, without any loss of awareness, tongue bite or post ictal state, occurred about 2 times in the last week, left arm got stiff during the event per patient, but denies any GTCs or staring off episodes. Documentation of possible left arm weakness since the events. MRI brain done during this admission showed mets to the right frontal, right occipital and right cerebellum with vasogenic edema and mass effect. Patient has been started on Decadron and Keppra. At present denies any JOHNS, visual disturbances, new onset focal motor weakness, sensory loss or speech disturbances. He lives alone, does drive, denies any falls, does not use cane or walker to ambulate, does not need any assistance for his ADLs. He used to smoke about 2 PPD for many years but quit about 3 yrs ago after being diagnosed with laryngeal cancer. Impression Metastatic cancer to the brain Simple partial seizures Plan -MRI brain reviewed -ppra 750 mg BID -Increase Decadron to 4 mg IV q 6 hrly -Check EEG -Neurosurgery consult SAMANTHA -Labs reviewed -seizure precautions discussed in detail, avoid climbing at heights, avoid working with any sharp objects, avoid swimming alone, use shower to bathe instead of bath tub -No driving for 6 months from last seizure event -Afib management and AC decision per primary team and cardiology -Further medical and cancer management per primary team and oncology -Fall precautions -GI/DVT prophylaxis -PT/OT -Please call with questions if any -Follow up with Neurology as outpatient in 4 weeks -Thank you for allowing us to participate in patient's care and management Code Visit Inpatient E AND M: [id number] Init Hosp L3 04/08/18 1223 <Electronically signed by Melina Feliciano MD> Date Melina Feliciano MD Cosigner Signature (if applicable): Date CC: ROYCE Sarmiento; Roland Feliciano MD; Serina Hollingsworth MD Signed CNDS Observed: 04/08/2018 Status: COMPLETED Source: [facility] 12:10 PM CLINIC OTHER CAMPUS REPOSITORY O ID: [id number] Author: Bettye Suero Service: Hospital Medicine Author Type: Physician Type: Discharge Summaries Filed: 04/08/2018 12:10 PM Note Text: DISCHARGE SUMMARY PATIENT NAME: Tomy Munson Code Status: Full Code Highest Readmission Risk Score: 13 The 30 day readmissions risk score is derived from an internally validated risk model which evaluates patient level characteristics, utilization history, medication orders and lab results up until the day of discharge. Patients with a score of 40 or above are considered highest risk for readmission. Specific patient level drivers will be listed at the bottom of the summary. Admission Information Admission Information ADMIT DATE: 04/07/2018 DISCHARGE DATE: 04/08/2018 MY DOCTORS AND MEDICAL TEAM: My Main Hospital Doctor: Bettye Suero Primary Care Provider: Alfred Sarmiento CNP My Medical Team Members: Treatment Team: Attending Provider: Bettye Suero Consulting: Sae Castillo Consulting: Sofia Suarez MD Primary Service: Law Lim Consulting: Esther Barnes MY CONDITION AT DISCHARGE: Stable REASON I WAS IN THE HOSPITAL: Seizure SUMMARY OF WHAT HAPPENED WHILE I WAS IN THE HOSPITAL: Patient was admitted for Seizure. This is a 62 year old male was transferred from [facility] for neurosurgery evaluation due to brain metastases. Patient was diagnosed with squamous cell carcinoma of larynx 3 years ago, s/p chemo/XRT, since then on PEG feeding. In October 2017 CT of chest demonstrated a left infrahilar mass compressing the left mainstem bronchus, had endobronchial stent placed but then removed due to sub-optimal position. Bx showed non small cell carcinoma. At that time had thoracentesis done with Pleurx catheter placement. Patient completed chemotherapy for lung cancer 4 weeks ago. Five days ago had one episode of possible seizure, it started with left hand cramping, hand claw followed with seizure like activity of left arm that lasted few minutes. Patient had another episode like this yesterday. Since then he has weakness and numbness of LUE. PCP saw him yesterday, sent to [facility] for admission, MRI of brain done and revealed two heterogeneous ring-enhancing masses in the right cerebellum with severe local vasogenic edema. He was seen by heme onc who felt a biopsy was not necessary and he was also seen by neurology. He was placed on Keppra and decadron and discharged home to see his oncologist in 1 week OTHER PROBLEMS/DIAGNOSIS: Active Problems: Brain metastases (HCC) Laryngeal cancer (HCC) Seizures (HCC) Dysphagia Lung cancer (HCC) Resolved Problems: * No resolved hospital problems. * OPERATIONS PERFORMED WHILE IN THE HOSPITAL: None IMPORTANT TEST/PROCEDURES: No procedures performed TEST RESULTS NOT AVAILABLE AT THIS TIME: No pending results Discharge Disposition Home/Self Care Activity When You Leave the Hospital Activity Resume pre-hospital activity No driving for: INDEFINITE no driving!!! Diet Instructions Diet Resume pre-hospital diet Follow Up Appointments Follow-Up Appointment With: Follow up with you oncologist in [facility] When: In 2 days Additional Provider to Provider Information: This is a 62 year old male was transferred from [facility] for neurosurgery evaluation due to brain metastases. Patient was diagnosed with squamous cell carcinoma of larynx 3 years ago, s/p chemo/XRT, since then on PEG feeding. In October 2017 CT of chest demonstrated a left infrahilar mass compressing the left mainstem bronchus, had endobronchial stent placed but then removed due to sub-optimal position. Bx showed non small cell carcinoma. At that time had thoracentesis done with Pleurx catheter placement. Patient completed chemotherapy for lung cancer 4 weeks ago. Five days ago had one episode of possible seizure, it started with left hand cramping, hand claw followed with seizure like activity of left arm that lasted few minutes. Patient had another episode like this yesterday. Since then he has weakness and numbness of LUE. PCP saw him yesterday, sent to [facility] for admission, MRI of brain done and revealed two heterogeneous ring-enhancing masses in the right cerebellum with severe local vasogenic edema. He was seen by [facility] onc who felt a biopsy was not necessary and he was also seen by neurology. He was placed on Keppra and decadron and discharged home to see his oncologist in 1 week Transitions of Care Critical Issues: SPECIALIST FOLLOW-UP: [place] oncologist SAMANTHA LABS AND PROCEDURES PENDING AT DISCHARGE: No pending results. FOLLOW-UP APPOINTMENTS ALREADY SCHEDULED WITH A [facility] PROVIDER: No future appointments. ALLERGIES Allergen Reactions - Iodinated Contrast-* Rash DISCHARGE MEDICATION: Current Discharge Medication List START taking these medications levETIRAcetam (KEPPRA) 1,000 mg Take 1,000 mg by mouth twice daily. Qty: 60 tablet Refills: 1 CONTINUE these medications which have CHANGED dexamethasone (DECADRON) 4 mg Take 4 mg by mouth every 6 hours. Qty: 60 tablet Refills: 1 CONTINUE these medications which have NOT CHANGED ferrous sulfate 65 mg Take 65 mg by mouth once daily. Refills: 0 clonazePAM (KLONOPIN) 0.5 mg tablet omeprazole (PRILOSEC) 20 mg capsule oxyCODONE-acetaminophen (PERCOCET) 5-325 mg tablet Refills: 0 albuterol (PROVENTIL) 2.5 mg 2.5 mg. levothyroxine (SYNTHROID) 150 mcg 150 mcg once daily. PROAIR HFA 90 mcg/actuation inhaler The patient's risk for 30-day readmission is determined using the following contributing factors: Pt variables contributing to increased readmission risk: 26 Most Recent BUN Result 13 Active Medication Orders 9 First Resulted Calcium During Admission 1 Insurance - Medicare 1 Discharge Disposition - Home 1 Active Anticoagulant TIME OF CARE: Discharge Management: I personally spent greater than 30 minutes involved in the discharge management of this patient. SIGNATURE: Bettye Suero DO PAGER/CONTACT #: DATE: April 08, 2018 TIME: 12:10 PM NUTRITION Observed: 04/08/2018 Status: COMPLETED Source: [facility] 11:00 AM CLINIC OTHER CAMPUS REPOSITORY HNO ID: [id number] Author: Kayla Morfin Service: Nutrition Therapy Author Type: Registered Dietitian Type: Nutrition Filed: 04/08/2018 12:44 PM Note Text: NUTRITION THERAPY INITIAL ASSESSMENT SERVICE DATE: 04/08/2018 SERVICE TIME: 11:00 RECOMMENDED MALNUTRITION DIAGNOSIS: NO MALNUTRITION IDENTIFIED NUTRITION CARE PLAN: Problem, Etiology and Signs/Symptoms: Suboptimal oral intake related to dysphagia as evidenced by pt with hx of larynx cancer and pt with PEG tube. Intervention: 1. Noting discharge orders in, if discharge is held recommend changing TF. Recommend Isosource 1.5 - 500 cc TID; Provides 1500 cc total product, 2250 calories, 102 Grams protein, 1146 cc free H2O. Flush 200 cc with bolus feeds Collaborated with RN Monitor and Evaluation: Goal: Meet >75% of estimated needs Monitor fluid/electrolyte balance Monitor labs, I/Os, vital signs, weight Discharge Nutrition Recommendations: Enteral/Tube feeding: Isosource 1.5 - 6 cartons a day Reason for Assessment: Tube feed consult, MST 2 Per HPI: This is a 62 year old male was transferred from [facility] for neurosurgery evaluation due to brain metastases. Patient was diagnosed with squamous cell carcinoma of larynx 3 years ago, s/p chemo/XRT, since then on PEG feeding. In October 2017 CT of chest demonstrated a left infrahilar mass compressing the left mainstem bronchus, had endobronchial stent placed but then removed due to sub-optimal position. Bx showed non small cell carcinoma. At that time had thoracentesis done with Pleurx catheter placement. Patient completed chemotherapy for lung cancer 4 weeks ago. Five days ago had one episode of possible seizure, it started with left hand cramping, hand claw followed with seizure like activity of left arm that lasted few minutes. Patient had another episode like this yesterday. Since then he has weakness and numbness of LUE. PCP saw him yesterday, sent to [facility] for admission, MRI of brain done and revealed two heterogeneous ring-enhancing masses in the right cerebellum with severe local vasogenic edema. CT of abdomen/pelvis-no metastases. Active Hospital Problems Diagnosis Date Noted - Brain metastases (HCC) 04/07/2018 - Laryngeal cancer (HCC) 04/07/2018 - Seizures (HCC) 04/07/2018 - Dysphagia 04/07/2018 - Lung cancer (HCC) 04/07/2018 PAST MEDICAL HISTORY Diagnosis Date - Anemia - Dysphagia - Hyponatremia - Lung cancer (HCC) - Malnutrition (HCC) - Squamous cell carcinoma head and neck - Xerostomia PAST SURGICAL HISTORY Procedure Laterality Date - COLONOSCOPY 02/01/16 - EGD 02/27/16 - INSERT PLEURAL CATHETER 11/11/2017 - LX UMBILICAL HERNIA REPAIR as a child - PAST SURGICAL HISTORY OF Left wrist surgery - PAST SURGICAL HISTORY OF powerport placed - PEG TUBE PLACEMENT HX Current Diet Order DIET TUBE FEED - BOLUS (NO TRAY) Order Specific Question: TF Product (26 years and up) Answer: ISOSOURCE 1.5 Order Specific Question: TF Total mL per 24 hours Answer: 1500 Order Specific Question: TF Bolus Amount (mL) Answer: 750 Order Specific Question: TF Bolus Every (hrs) Answer: 12 Order Specific Question: TF Route Answer: GASTROSTOMY Order Specific Question: TF Bolus Start Time Answer: 9:00 PM Order Specific Question: TF Water Flush Amt (mL) Pre/Post Bolus (18 years and up) Answer: 60 Lines and Drains: Implanted Vascular Access Device Single Port 04/07/18 1845 Left Chest (Active) Nutritional Intake Prior to Admission: >75% estimated energy needs over the past >1 month(s). Pt reports being TF dependent since undergoing treatment for larynx cancer. Pt reports doing two 750 cc bolus feeds a day at home. Pt reported tolerating well. Pt continued to say he was having vomiting in past 2 weeks which he feels is related to seizures. Pt reported vomiting meds and TF product at times. Suggested to pt he should spread TF throughout the day instead of doing 2 large bolus feeds, but pt declined. During visit, pt was giving himself bolus feeds. Pt stated he did 3 cartons today despite the RN saying he only did 2. Pt appeared slightly confused during visit. Pt states his weight has been stable for months at 125 lbs. 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 Nutrition Abdominal Exam:, abdomen is soft and bowel sounds are normal per clinical documentation ANTHROPOMETRICS Height: 170.2 cm (5' 7) Admission Weight: 57.6 kg (126 lb 15.8 oz) Current Weight: 57.6 kg (126 lb 15.8 oz) Body mass index is 19.89 kg/m?. normal Weight has not changed significantly Last Wt 04/07/18 : 57.6 kg (126 lb 15.8 oz)- bed wt. 03/12/18: 58.1 kg - care everywhere 03/04/18 : 58.1 kg (128 lb) 12/11/17: 57.1 kg - care everywhere Dosing Weight: 57.6 kg Resting Metabolic Rate: 1339 Estimated kilocalorie needs: 5096-8693 kilocalories determined by 30-35 kcal/kg Estimated protein needs: 69-92 grams determined by 1.2-1.6 g/kg Dosing weight Estimated fluid needs: 7095-5123 milliliters based on 1 mL per kcal NUTRITION FOCUSED PHYSICAL EXAM: Suspect pt at baseline, wt stable and pt meeting needs. Subcutaneous Fat Loss Orbital Moderate Triceps Severe Mid-axillary at the iliac crest Severe Muscle Loss Locations: Temporalis Severe Pectoralis Severe Deltoids Severe Interosseous Moderate Latissimus dorsi, trapezius Moderate Quadriceps Unable to determine at this time pt with pants on Gastrocnemius Moderate Potential micronutrient deficiency revealed in: No deficiency identified Edema: No Ascites: No Assessment of Functional Status: Functional capacity is unrelated to nutrition status Temperature Max in 24 hours: Temp (24hrs), Av.7 ?C (98.1 ?F), Min:36.7 ?C (98.1 ?F), Max:36.7 ?C (98.1 ?F) BP 117/60 Pulse 81 Temp 36.7 ?C (98.1 ?F) (Oral) Resp 18 Ht 170.2 cm (5' 7) Wt 57.6 kg (126 lb 15.8 oz) SpO2 96% BMI 19.89 kg/m? Recent Labs 04/08/18 0625 GLUC 114* BUN 26* CREAT 0.99 NA 137 K 4.2 CHLOR 102 CO2 29 HB 7.8* HCT 25.3* WBC 4.15* Potential Signs of Inflammation: hyperglycemia and leukopenia, chronic condition ALLERGIES Allergen Reactions - Iodinated Contrast-* Rash Current Facility-Administered Medications: clonazePAM 0.5 mg tab(s) (KlonoPIN) 0.5 mg ORAL BID albuterol 2.5 mg /3 mL (0.083 %) 2.5 mg (PROVENTIL) 2.5 mg INHALATION q 6 H PRN albuterol HFA 90 mcg/actuation 2 Puff (PROVENTIL HFA, VENTOLIN HFA) 2 Puff INHALATION q 6 H PRN dexamethasone 4 mg tab(s) (DECADRON) 4 mg ORAL q 6 H oxyCODONE-acetaminophen 5-325 mg 1 tablet (PERCOCET) 1 tablet ORAL q [address] 40 mg tab(s) (PROTONIX) 40 mg ORAL DAILY (6 AM) levothyroxine 150 mcg (SYNTHROID) 150 mcg ORAL DAILY (6 AM) heparin 5,000 Units injection 5,000 Units SUBCUTANEOUS q 12 H NaCl 0.9% iv infusion 75 mL/hr INTRAVENOUS CONTINUOUS ondansetron 4 mg tab(s) (ZOFRAN) 4 mg ORAL q 6 H PRN Or ondansetron (PF) 4 mg injection (ZOFRAN) 4 mg INTRAVENOUS q 6 H PRN levETIRAcetam 500 mg tab(s) (KEPPRA) 500 mg ORAL BID polyethylene glycol 3350 17 g packet (MIRALAX, GLYCOLAX) 17 g ORAL DAILY Date 04/07/18699 - 04/08/1865804/08/18699 - 04/09/18 0659 Shift 4452-0500 3027-9344 1872-4429 24 Hour Total 3622-2037 6630-4482 1994-1462 24 Hour Total I N T A K E Shift Total O U T P U T Urine 200 1400 1600 Void (ml) 200 1400 1600 Shift Total 200 1400 1600 Weight (kg) 57.6 57.6 57.6 57.6 57.6 57.6 57.6 Vitamin and Mineral Labs in the past year:No results for input(s): CHROMIUM, COPPER, MANGANESE, SELENIUM, VITAMINA, VITB1, VITB2, VITB6, B12, METHYLMAL, VITD25, VITAMINE, VITAK, ZINC, TIBC, FE, JOHANA in the last 8784 hours. MNT Billing Type: Initial Assess/15 min 3 units SIGNATURE: Kayla Morfin RD PATIENT NAME: Tomy Munson DATE: April 08, 2018 TIME: 8:42 AM PAGER: [phone] CONSULT Observed: 04/08/2018 Status: COMPLETED Source: [facility] 8:57 AM CLINIC OTHER CAMPUS REPOSITORY HNO ID: [id number] Author: Esther Barnes Service: Hematology/Oncology Author Type: Physician Type: Consults Filed: 04/08/2018 9:41 AM Note Text: TOMY MUNSON 62 year old MEDICAL ONCOLOGY CONSULTATION: Brain metastases Subjective HPI: 62-year-old male, admitted on 04/07/2018 secondary to new diagnosis of brain metastases. This patient does have a prior diagnosis of stage III squamous cell carcinoma larynx, treated with chemotherapy/XRT approximate 2014. This therapy was covered to by the development of dysphagia, requiring permanent use of a PEG tube. This summer, he developed a left pleural effusion, and was noted to have a left infrahilar mass compressing the left mainstem bronchus. He was seen at [facility] for an endobronchial stents to improve his respiratory status. This could not be adequately placed, but a Pleurx catheter was placed at that time. 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 His MRI of the brain demonstrated multiple supratentorial lesions. He has been getting outpatient chemotherapy in the [facility], although he does not know the names of his medications. It appears that he has a in non-small cell lung cancer with a malignant effusion. This alone is associated with stage IV disease. [place] prescription history is as follows: 03/24/2018 1 03/23/2018 Oxycodone-Acetaminophen 10-325 120 30 [address] [place] [id number] [place] (911) 0 60.00 MME [place] 03/23/2018 1 03/23/2018 Clonazepam 0.5 MG Tablet 90 30 [address] [place] [id number] [place] (911) 0 3.00 LME [place] 01/02/2018 1 01/02/2018 Oxycodone-Acetaminophen 10-325 90 22 [address] [place] [id number] [place] (911) 0 61.36 MME [place] 12/18/2017 1 12/18/2017 Oxycodone-Acetaminophen 5-325 90 [address] [id number] [place] (911) 0 30.68 [place] 11/21/2017 1 11/21/2017 Clonazepam 0.5 MG Tablet 90 30 [address] [place] [id number] [place] (9943) 0 3.00 [place] 11/21/2017 1 11/17/2017 Oxycodone-Acetaminophen 5-325 120 30 [address] [place] [id number] [place] (9943) 0 30.00 MME [place] Current Facility-Administered Medications: clonazePAM 0.5 mg tab(s) (KlonoPIN) 0.5 mg ORAL BID Yoselin [place] 0.5 mg at 04/07/182123 albuterol 2.5 mg /3 mL (0.083 %) 2.5 mg (PROVENTIL) 2.5 mg INHALATION q 6 H PRN Yoselin [place] albuterol HFA 90 mcg/actuation 2 Puff (PROVENTIL HFA, VENTOLIN HFA) 2 Puff INHALATION q 6 H PRN Y[place]elin [place] dexamethasone 4 mg tab(s) (DECADRON) 4 mg ORAL q 6 H Yoselin [place] 4 mg at 04/08/18611 oxyCODONE-acetaminophen 5-325 mg 1 tablet (PERCOCET) 1 tablet ORAL q 4 H PRN Yoselin [place] 1 tablet at 04/07/182135 pantoprazole DR 40 mg tab(s) (PROTONIX) 40 mg ORAL DAILY (6 AM) Yoselin [place] 40 mg at 04/08/18612 levothyroxine 150 mcg (SYNTHROID) 150 mcg ORAL DAILY (6 AM) Yoselin [place] 150 mcg at 04/08/18 06 heparin 5,000 Units injection 5,000 Units SUBCUTANEOUS q 12 H Yoselin [place] 5,000 Units at 04/07/182124 NaCl 0.9% iv infusion 75 mL/hr INTRAVENOUS CONTINUOUS Yoselin [place] Last Rate: 75 mL/hr at 04/07/182124 75 mL/hr at 04/07/182124 ondansetron 4 mg tab(s) (ZOFRAN) 4 mg ORAL q 6 H PRN Yoselin [place] Or ondansetron (PF) 4 mg injection (ZOFRAN) 4 mg INTRAVENOUS q 6 H PRN Yoselin [place] levETIRAcetam 500 mg tab(s) (KEPPRA) 500 mg ORAL BID Yoselin [place] 500 mg at 04/07/182123 polyethylene glycol 3350 17 g packet (MIRALAX, GLYCOLAX) 17 g ORAL DAILY Yoselin [place] Prescriptions Prior to Admission: ferrous sulfate 325 mg (65 mg iron) tablet Take 65 mg by mouth once daily. Disp: Rfl: 0 Taking dexamethasone (DECADRON) 4 mg tablet DAILY@0800 Disp: Rfl: Not Taking clonazePAM (KLONOPIN) 0.5 mg tablet Disp: Rfl: Taking omeprazole (PRILOSEC) 20 mg capsule Disp: Rfl: Not Taking oxyCODONE-acetaminophen (PERCOCET) 5-325 mg tablet Disp: Rfl: 0 Not Taking albuterol (PROVENTIL) 2.5 mg /3 mL (0.083 %) nebulizer solution 2.5 mg. Disp: Rfl: Not Taking levothyroxine (SYNTHROID) 50 mcg tablet 150 mcg once daily. Disp: Rfl: Taking PROAIR HFA 90 mcg/actuation inhaler Disp: Rfl: Not Taking Social History Marital status: Single Spouse name: Years of education: Number of children: Social History Main Topics Smoking status: Former Smoker Packs/day: 0.00 Years: 0.00 Smokeless tobacco: Never Used Alcohol use: No Drug use: No FAMILY HISTORY Problem Relation Age of Onset - None Other PAST SURGICAL HISTORY Procedure Laterality Date - COLONOSCOPY 02/01/16 - EGD 02/27/16 - INSERT PLEURAL CATHETER 11/11/2017 - LX UMBILICAL HERNIA REPAIR as a child - PAST SURGICAL HISTORY OF Left wrist surgery - PAST SURGICAL HISTORY OF powerport placed - PEG TUBE PLACEMENT HX ROS: All of the following reviewed and negative except as noted below: GENERAL: fatigue, generalized weakness, Anorexia HEENT: no headache, vision changes, eye discomfort, hearing change, ear discomfort, sinus pain, nasal discharge or congestion, oral lesions, soreness, dental problem NECK: no adenopathy, discomfort, change in ROM CHEST: shortness of breath, dyspnea on exertion, HEART: no chest pain, palpitations, syncope ABDOMEN: no nausea, vomiting, constipation, diarrhea, abdominal pain : no dysuria, urgency, frequency, history of stones, incontinence NEURO: See history of present illness EXTREMITIES: no new pain, edema, change in ROM HEME: no new adenopathy, bruises, petechiae PSYCH: no depression, anxiety, agitation PHYSICAL EXAMINATION: see below for new or abnormal findings BP 117/60 Pulse 81 Temp 36.7 ?C (98.1 ?F) (Oral) Resp 18 Ht 170.2 cm (5' 7) Wt 57.6 kg (126 lb 15.8 oz) SpO2 96% BMI 19.89 kg/m? BMI 19.89 kg/(m2) GENERAL: chronically ill-appearing, reasonably well nourished and developed; no acute distress; alert and oriented x 3; intact judgement and insight HEENT: no evidence of trauma; cranial nerves intact; eyes clear EOMI; no hearing deficits apparent; nasal passages unremarkable; throat and mucous membranes clear. Prominent alopecia NECK: supple without lymphadenopathy; no JVD; no thyromegaly CHEST: Breast sounds left base normal chest movement; no rales or rhonchi HEART: regular rate and rhythm, normal S1 and S2, no murmurs, clicks, rubs, or gallops ABDOMEN: soft; nondistended; bowel sounds present; no hepatomegaly; no splenomegaly; no tenderness EXTREMITIES: no evidence of clubbing; no cyanosis; no deformity; no joint effusion; no edema NEURO: cranial nerves intact; no focal deficits; no confusion; no tremor; sensorium normal SKIN: no rash; no skin breakdown; no decubitus lesions HEME: no bruising; no adenopathy PSYCH: no evidence of depression; no anxiety; no agitation; no apparent hallucinations ABNORMAL/NEW FINDINGS: NONE CBC: Recent Labs 04/08/18 0625 WBC 4.15* RBC 2.25* HB 7.8* HCT 25.3* PLT 379* MCV 112.4* MCH 34.7* MPV 9.3 RDW 19.9* CMP: Recent Labs 04/08/18 0625 NA 137 K 4.2 CHLOR 102 CO2 29 BUN 26* CREAT 0.99 GLUC 114* CA 9.0 ANION 10 Heme: No results for input(s): RETICP, ABSRETIC, LD, JOHANA, FE, TIBC, TRANSFERSAT in the last 24 hours. ASSESSMENT ACTIVE PROBLEM LIST Brain Metastases (Hcc) Laryngeal Cancer (Hcc) Seizures (Hcc) Dysphagia Lung Cancer (Hcc) PLAN: Overall prognosis is limited Estimated survival of weeks to months Rehabilitation potential is probably fair in the short-term New brain metastases most consistent with his non-small cell lung primary. Biopsy really is not necessary. He describes plan for restaging scans as early as next week in regard to his systemic disease. He will require follow-up in [place] for both chemotherapy and radiation therapy. Both his medical oncologist and radiation oncologist R in that area. He should be eligible for external beam radiation therapy to the brain. Doubt that he is eligible for gamma knife therapy. His seizures controlled, okay for discharge. As no further workup is necessary. He does not require any opiate prescriptions at discharge. Esther Barnes M.D. PROGRESS Observed: 04/08/2018 Status: COMPLETED Source: [facility] 8:39 AM CLINIC OTHER CAMPUS REPOSITORY HNO ID: [id number] Author: Bettye Suero Service: Hospital Medicine Author Type: Physician Type: Progress Notes Filed: 04/08/2018 8:43 AM Note Text: DEPARTMENT OF HOSPITAL MEDICINE PROGRESS NOTE SERVICE DATE: 04/08/2018 SERVICE TIME: 8:39 AM Hospital Medicine/Primary Attending: Bettye Suero, DO NIGHT AND WEEKEND COVERAGE: After 7pm please page [phone] CHIEF COMPLAINT: Follow up on seizures SUBJECTIVE: Pt seen and examined. No further seizures. Feels ok today. Pt denies chest pain, shortness of breath, nausea, vomiting, or diarrhea. Really only takes some water po OBJECTIVE: PHYSICAL EXAM: BP 117/60 Pulse 81 Temp (Src) 98.1 (Oral) Resp 18 Ht 5' 7 (1.70m) Wt 126 lb 15.8 oz (57.6kg) SpO2 96% BMI 19.88 kg/(m2). General - AANDOx3, NAD, Calm CV - RRR S1 S2, No M/R/G RESP - CTA B/L No wheezes, ronchi, rales ABD - soft, NT, ND +BS, +PEG EXT - no gross joint deformity, no clubbing, cyanosis, edema NEURO - CN II-XII grossly intact, no focal deficits MEDICATIONS: Current hospital medications: clonazePAM 0.5 mg tab(s) (KlonoPIN) 0.5 mg ORAL BID albuterol 2.5 mg /3 mL (0.083 %) 2.5 mg (PROVENTIL) 2.5 mg INHALATION q 6 H PRN albuterol HFA 90 mcg/actuation 2 Puff (PROVENTIL HFA, VENTOLIN HFA) 2 Puff INHALATION q 6 H PRN dexamethasone 4 mg tab(s) (DECADRON) 4 mg ORAL q 6 H oxyCODONE-acetaminophen 5-325 mg 1 tablet (PERCOCET) 1 tablet ORAL q [address] 40 mg tab(s) (PROTONIX) 40 mg ORAL DAILY (6 AM) levothyroxine 150 mcg (SYNTHROID) 150 mcg ORAL DAILY (6 AM) heparin 5,000 Units injection 5,000 Units SUBCUTANEOUS q 12 H NaCl 0.9% iv infusion 75 mL/hr INTRAVENOUS CONTINUOUS ondansetron 4 mg tab(s) (ZOFRAN) 4 mg ORAL q 6 H PRN ondansetron (PF) 4 mg injection (ZOFRAN) 4 mg INTRAVENOUS q 6 H PRN levETIRAcetam 500 mg tab(s) (KEPPRA) 500 mg ORAL BID polyethylene glycol 3350 17 g packet (MIRALAX, GLYCOLAX) 17 g ORAL DAILY DATA: Diagnostic tests reviewed for today's visit: CBC: Recent Labs 04/08/18 0625 WBC 4.15* RBC 2.25* HB 7.8* HCT 25.3* PLT 379* MCV 112.4* MCH 34.7* MPV 9.3 RDW 19.9* Coags: No results for input(s): INR, APTT in the last 24 hours. Invalid input(s): PT BMP: Recent Labs 04/08/18 0625 NA 137 K 4.2 CHLOR 102 CO2 29 BUN 26* CREAT 0.99 GLUC 114* CMP: Recent Labs 04/08/18 0625 NA 137 K 4.2 CHLOR 102 CO2 29 BUN 26* CREAT 0.99 GLUC 114* CA 9.0 ANION 10 Cardiac Enzymes: No results for input(s): CK, MB, CKMB, TROPT in the last 24 hours. Liver Function, Amylase, Lipase: No results for input(s): TPROT, ALB, ALT, AST, ALKPHOS, TBILI, AMYLASE, LIPASE, LACTATE in the last 24 hours. MG/PHOS: No results for input(s): MG, P in the last 24 hours. Renal Panel: Recent Labs 04/08/18 0625 CREAT 0.99 BUN 26* GLUC 114* CA 9.0 CHLOR 102 K 4.2 CO2 29 NA 137 Heme: No results for input(s): RETICP, ABSRETIC, LD, JOHANA, FE, TIBC, TRANSFERSAT in the last 24 hours. No results found for: UALBCR Assessment/Plan 1. Brain mets - appreciate neurosurgery. Await heme onc recs regarding treatment and if biopsy is needed. If bx needed can do next week per neurosurgery, con't with decadron 2. Seizure - due to #1. Con't with Keppra 3. Laryngeal cancer - Gets care in [place] 4. Dysphagia - due to laryngeal cancer. Typically only takes small amounts of water po 5. Non small cell lung cancer - s/p chemo. Follows in [place] 6. Anemia - of chronic disease. Monitor VTE Prophylaxis: Heparin 5000 units Sub Q BID Disposition: Home Functional Status Prior to Admit: Ambulatory Plan of care discussed with: Patient SIGNATURE: Bettye Suero DO PATIENT NAME: Tomy Munson DATE: April 08, 2018 TIME: 8:39 AM PAGER/CONTACT #: [phone] CONSULT Observed: 04/08/2018 Status: COMPLETED Source: [facility] 8:13 AM CLINIC OTHER CAMPUS REPOSITORY HNO ID: [id number] Author: Sae Castillo Service: Neurosurgery Author Type: Physician Type: Consults Filed: 04/08/2018 8:24 AM Note Text: CONSULT: NEUROLOGICAL SURGERY SERVICE SERVICE DATE: 04/08/2018 SERVICE TIME: 05:15A REASON FOR CONSULT: Multiple intracranial lesions concerning for metastasis REQUESTING PHYSICIAN: Yoselin Hennessy PRIMARY CARE PHYSICIAN: Alfred Sarmiento, SECURITY DIRECTOR Subjective Mr. Munson is a 62 year old male who presents for evaluation for recently discovered intracranial lesions. Pt has a hx significant for laryngeal CA and non-small cell lung CA. He presented to OSH with general malaise and left-sided weakness. MRI demonstrates supra and infratentorial lesions FUNCTIONAL STATUS: Partially dependent PAST MEDICAL HISTORY Diagnosis Date - Anemia - Dysphagia - Hyponatremia - Lung cancer (HCC) - Malnutrition (HCC) - Squamous cell carcinoma head and neck - Xerostomia PAST SURGICAL HISTORY Procedure Laterality Date - COLONOSCOPY 02/01/16 - EGD 02/27/16 - INSERT PLEURAL CATHETER 11/11/2017 - LX UMBILICAL HERNIA REPAIR as a child - PAST SURGICAL HISTORY OF Left wrist surgery - PAST SURGICAL HISTORY OF powerport placed - PEG TUBE PLACEMENT HX FAMILY HISTORY Problem Relation Age of Onset - None Other Social History Substance Use Topics - Smoking status: Former Smoker - Smokeless tobacco: Never Used - Alcohol use No Prescriptions Prior to Admission: ferrous sulfate 325 mg (65 mg iron) tablet Take 65 mg by mouth once daily. Disp: Rfl: 0 Taking dexamethasone (DECADRON) 4 mg tablet DAILY@0800 Disp: Rfl: Not Taking clonazePAM (KLONOPIN) 0.5 mg tablet Disp: Rfl: Taking omeprazole (PRILOSEC) 20 mg capsule Disp: Rfl: Not Taking oxyCODONE-acetaminophen (PERCOCET) 5-325 mg tablet Disp: Rfl: 0 Not Taking albuterol (PROVENTIL) 2.5 mg /3 mL (0.083 %) nebulizer solution 2.5 mg. Disp: Rfl: Not Taking levothyroxine (SYNTHROID) 50 mcg tablet 150 mcg once daily. Disp: Rfl: Taking PROAIR HFA 90 mcg/actuation inhaler Disp: Rfl: Not Taking Current hospital medications: clonazePAM 0.5 mg tab(s) (KlonoPIN) 0.5 mg ORAL BID albuterol 2.5 mg /3 mL (0.083 %) 2.5 mg (PROVENTIL) 2.5 mg INHALATION q 6 H PRN albuterol HFA 90 mcg/actuation 2 Puff (PROVENTIL HFA, VENTOLIN HFA) 2 Puff INHALATION q 6 H PRN dexamethasone 4 mg tab(s) (DECADRON) 4 mg ORAL q 6 H oxyCODONE-acetaminophen 5-325 mg 1 tablet (PERCOCET) 1 tablet ORAL q [address] 40 mg tab(s) (PROTONIX) 40 mg ORAL DAILY (6 AM) levothyroxine 150 mcg (SYNTHROID) 150 mcg ORAL DAILY (6 AM) heparin 5,000 Units injection 5,000 Units SUBCUTANEOUS q 12 H NaCl 0.9% iv infusion 75 mL/hr INTRAVENOUS CONTINUOUS ondansetron 4 mg tab(s) (ZOFRAN) 4 mg ORAL q 6 H PRN ondansetron (PF) 4 mg injection (ZOFRAN) 4 mg INTRAVENOUS q 6 H PRN levETIRAcetam 500 mg tab(s) (KEPPRA) 500 mg ORAL BID polyethylene glycol 3350 17 g packet (MIRALAX, GLYCOLAX) 17 g ORAL DAILY Allergies As of Date: 04/07/2018 Allergen Noted Reaction IODINATED CONTRAST- ORAL AND IV D*01/09/2018 Rash Fully Assessed 04/07/2018 COMPLETE REVIEW OF SYSTEMS: GENERAL: Unintentional weight loss RESPIRATORY: Cough; dry, congested NEURO: No history of headaches, syncope, paralysis, seizures or tremors Objective PHYSICAL EXAM: Physical Exam Performed: GENERAL: Alert, no distress, cooperative, No Distress, Smiling, thin HEAD/SINUSES: atraumatic normocephalic EYES: PERRLA, EOMI ABDOMEN: Abdomen soft, non-tender, BS normal, No masses or organomegaly NEURO: AAO x 4 (situation), fc, L-sided paresis (4+)and possible focal UE motor seizure The remainder of the physical exam is noncontributory. BP 117/60 Pulse 81 Temp (Src) 98.1 (Oral) Resp 18 Ht 5' 7 (1.70m) Wt 126 lb 15.8 oz (57.6kg) SpO2 96% BMI 19.88 kg/(m2). DATA: Diagnostic tests reviewed for today's visit: Most recent imaging OSH MRI brain w/wo Impression/Recommendations Active Problems: Brain metastases (HCC) POA: Yes Assessment AND Plan: most likely met from lung(s), multiple lesions (supra/infra tentorial) resection of multiple mets not recommended due to number and eloquence of cortex, will await oncology recs regarding treatment with or w/o need for biopsy. If biopsy recommended by oncology, will be able to perform next week. Please call with any questions or concerns. Sae Castillo MD PhD [facility] April 08, 2018 8:24 AM SIGNATURE: Sae Castillo MD PHd PATIENT NAME: Tomy Munson DATE: April 08, 2018 TIME: 8:13 AM PAGER: BASIC PANEL Collected: 04/08/2018 Status: F Source: [facility] 6:25 AM HEALTH SYSTEM REPOSITORY TYPE CODE TESTS RESULT OUT OF REFERENCE UNITS RANGE LAB NA(LOINC) 136-145 mEq/L Sodium Blood 137 LAB K(LOINC) 3.5-5.1 mEq/L Potassium Blood 4.2 LAB CL(LOINC) 98-107 mEq/L Chloride Blood 102 LAB CO2(LOINC) 21-32 mEq/L CO2 Blood 29 LAB GLU(LOINC) 70-99 mg/dL Glucose High Blood 114 LAB BUN(LOINC) 7-18 mg/dL BUN High Blood 26 LAB CREA(LOINC 0.67-1.17 mg/dL ) Creatinine Blood 0.99 LAB CA(LOINC) 8.5-10.1 mg/dL Calcium Blood 9.0 LAB ANGAP(LOIN 8-16 C) Anion Gap 10 Performed By: #### P8 #### [place] [address] MDRD GFR Collected: 04/08/2018 Status: F Source: [facility] 6:25 [facility] REPOSITORY TYPE CODE TESTS RESULT OUT OF RANGE REFERENCE UNITS LAB GFRFN(LOINC >60mL/min/1.73m ) 2 eGFR >60 Result Comment: If the patient is , multiply the result by 1.210. Performed By: #### GFR #### [place] [address] HEMOGRAM Collected: 04/08/2018 Status: F Source: [facility] 6:25 HEALTH SYSTEM REPOSITORY TYPE CODE TESTS RESULT OUT OF REFERENCE UNITS RANGE LAB WBC(LOINC) 4.23-9.07 thou/cmm Low WBC 4.15 LAB RBC(LOINC) 4.63-6.08 mil/cmm Low RBC 2.25 LAB HGB(LOINC) 13.7-17.5 g/dL Low Hgb 7.8 LAB HCT(LOINC) 40.1-51.0 % Low Hct 25.3 LAB MCV(LOINC) 83.2-95.6 fl High MCV 112.4 LAB MCH(LOINC) 25.7-32.2 pg High MCH 34.7 LAB MCHC(LOINC) 32.3-36.5 % Low MCHC 30.8 LAB RDW(LOINC) 11.6-14.4 % High RDW 19.9 LAB RDWSD(LOINC 36.1-45.8 fl ) High RDW SD 84.0 LAB PLT(LOINC) 141-365 thou/cmm High Platelet 379 LAB MPV(LOINC) 8.7-12.0 fl MPV 9.3 Performed By: #### CBC1 #### [facility] [address] [place] [address] CONSULT Observed: 04/07/2018 Status: COMPLETED Source: [facility] 10:24 PM CLINIC OTHER CAMPUS REPOSITORY HNO ID: [id number] Author: Amanda Valdez (Pa) Service: Neurology General Author Type: Physician Diesel Automotive Technician Type: Consults Filed: 04/07/2018 10:50 PM Note Text: Attestation signed by Yaya Richard Jr. at 04/08/2018 10:16 AM [facility] STAFF PHYSICIAN NOTE OF PERSONAL INVOLVEMENT IN CARE I have reviewed the consult note obtained and documented by the physician assistant hairstylist and I personally participated in the boswell components. I have discussed the case and management of the patient's care. The following comments revise or confirm relevant boswell components of their note. IMPRESSION: This is a 62 year old male who presents with a focal motor seizure of his RUE as detailed above, due to brain mets from his lung cancer. PLAN: Keppra 1000mg bid. Decadron. Neurosurgery eval for consideration of rsection vs gamma knife etc. Home when cleared by them and oncology.No need for EEG. Yaya Richard MD April 08, 2018 10:16 AM INITIAL CONSULT - GENERAL NEUROLOGY SERVICE DATE: 04/07/2018 SERVICE TIME: 10:24 PM Team Requesting Consult: JERRI Current Attending Provider: Zara Yang Neurology was asked by the Hospitalist team to evaluate Tomy Munson, a 62 year old male for a chief complaint of Seizures. Our recommendations of care will be communicated by shared medical record. Reason for Evaluation: Seizures Subjective HPI: This is Mr. Tomy Munson a 62 year old male, transferred from [facility] to the [facility] initially with a chief complaint of seizure activity. Likely secondary to new brain metastasis findings on MRI. Patient states approximately 1 week ago, he was sitting at home trying to use pill cutter to take his medications when all of a sudden his left hand and arm became very stiff and rigid and he was unable to open his hand or fingers. His arm then began thrashing around uncontrollably for 30s-1 minute in duration. Patient reports this then happened again on Friday. PCP instructed him to seek medical attention at [facility] for further evaluation. Patient has history of SCC of the larynx, diagnosed 3 years ago, s/p chemo and radiation therapy. In October of 2017, he was found to have L infrahilar mass in lung with compression of L main bronchus requiring endobronchial stent placement. Biopsy at that time with findings of NSCLC. Patient states he completed chemotherapy for this 4 weeks ago. Patient and son at bedside state that prior to 1 week ago, he has not experienced any seizure like activity or any bouts of confusion or altered mentation. In the last 1 week, son has noticed intermittent confusion, ' he as been off'. Patient denies headache, vision changes, dizziness, gait or balance problems, numbness or weakness in upper or lower extremities. MRI ordered at [facility] with findings of two heterogenous ring-enhancing masses in R cerebellum w/ severe local vasogenic edema. CT abdomen/pelvis with no evidence of additional metastases. Patient transferred here for further neurologic/neurosurgical evaluation. Current hospital medications: clonazePAM 0.5 mg tab(s) (KlonoPIN) 0.5 mg ORAL BID albuterol 2.5 mg /3 mL (0.083 %) 2.5 mg (PROVENTIL) 2.5 mg INHALATION q 6 H PRN albuterol HFA 90 mcg/actuation 2 Puff (PROVENTIL HFA, VENTOLIN HFA) 2 Puff INHALATION q 6 H PRN [START ON 04/08/2018] dexamethasone 4 mg tab(s) (DECADRON) 4 mg ORAL q 6 H oxyCODONE-acetaminophen 5-325 mg 1 tablet (PERCOCET) 1 tablet ORAL q 4 H PRN [START ON 04/08/2018] pantoprazole DR 40 mg tab(s) (PROTONIX) 40 mg ORAL DAILY (6 AM) [START ON 04/08/2018] levothyroxine 150 mcg (SYNTHROID) 150 mcg ORAL DAILY (6 AM) heparin 5,000 Units injection 5,000 Units SUBCUTANEOUS q 12 H NaCl 0.9% iv infusion 75 mL/hr INTRAVENOUS CONTINUOUS ondansetron 4 mg tab(s) (ZOFRAN) 4 mg ORAL q 6 H PRN ondansetron (PF) 4 mg injection (ZOFRAN) 4 mg INTRAVENOUS q 6 H PRN levETIRAcetam 500 mg tab(s) (KEPPRA) 500 mg ORAL BID PAST MEDICAL HISTORY Diagnosis Date - Anemia - Dysphagia - Hyponatremia - Lung cancer (HCC) - Malnutrition (HCC) - Squamous cell carcinoma head and neck - Xerostomia PAST SURGICAL HISTORY Procedure Laterality Date - COLONOSCOPY 02/01/16 - EGD 02/27/16 - INSERT PLEURAL CATHETER 11/11/2017 - LX UMBILICAL HERNIA REPAIR as a child - PAST SURGICAL HISTORY OF Left wrist surgery - PAST SURGICAL HISTORY OF powerport placed - PEG TUBE PLACEMENT HX Social History Marital status: Single Spouse name: Years of education: Number of children: Social History Main Topics Smoking status: Former Smoker Packs/day: 0.00 Years: 0.00 Smokeless tobacco: Never Used Alcohol use: No Drug use: No FAMILY HISTORY Problem Relation Age of Onset - None Other ALLERGIES Allergen Reactions - Iodinated Contrast-* Rash REVIEW OF SYSTEMS: GENERAL: Normal sleep, appetite and activity. No fevers or irritability. HEENT: Negative for headaches, No problems with hearing or vision, no nose bleeds or other nasal problems NECK: Negative for stiffness, lumps or significant neck swelling RESPIRATORY: Negative for cough, wheezing or respiratory distress CARDIOVASCULAR: Negative for chest pain, syncope, lightheadness or heart racing GI: No nausea, vomiting, or diarrhea : No history of dysuria, frequency or incontinence MUSCULOSKELETAL: Negative for joint pain or swelling, back pain or muscle pain SKIN: Negative for lesions, rash, and itching NEURO: See HPI Objective PHYSICAL EXAM: General Appearance: Thin and chronically ill appearing. No acute distress. Skin: Skin color, texture, turgor normal, no suspicious rashes or lesions Head: Normocephalic, no masses, lesions, tenderness or abnormalities Ears: Not examined Nose/Sinuses: Nares normal, septum midline, mucosa normal, no drainage or sinus tenderness Oropharynx: Lips, mucosa, and tongue normal, teeth and gums normal, oropharynx normal Neck: Supple, no adenopathy; thyroid symmetric, normal size, no bruits Lungs: Lungs clear to auscultation. No wheezing, rhonchi, rales Heart: RRR without murmur, gallop, or rubs. No ectopy Abdomen: Abdomen soft, non-tender. Bowel sounds normal. No masses, organomegaly Extremities: No deformities, edema, skin discoloration, clubbing or cyanosis. Good capillary refill. Musculoskeletal: No joint swelling, deformity, or tenderness Peripheral Pulses: Normal Neurological: ? Mental Status: Alert, oriented to person, place and time, Follows commands and Speech fluent and appropriate. Cranial Nerves: CNII: Visual acuity normal, Visual romeo full to confrontation, No APD noted on exam CNIII, IV, : Pupils equal, round and reactive to light, full extraoccular movements, without nystagmus CN V: Facial sensation intact bilaterally to fine touch and pinprick CN VII: Facial muscles symmetric and strong, No noted facial droop CN VIII: Hears finger rub well bilaterally CN IX: Gag Reflex Not examined CN X: Palate elevates symmetrically CN XI: Full strength shoulder shrug bilaterally CN XII: Tongue protrusion full and midline ? Non-Dilated Fundiscopic Examination: Deferred Examination ? Motor Exam: Tone - Normal Bulk - no muscle atrophy ? Motor Exam: Strength: 5/5 strength in bilateral upper and lower extremities ? Sensation: Intact to light touch and temperature. ? Coordination: Finger-to- nose-finger intact bilaterally. ? Gait: NT DATA: Diagnostic tests reviewed for today's visit: Most recent labs and imaging results. Impression/Recommendations This is Tomy Munson, a 62 year old male has a neurological examination that is essentially normal at this visit. 1) Brain Metastases - Neurosurgery consulted for possible surgical intervention - Imaging performed at [facility]. Images to be uploaded into [facility] system - Continue Decadron 4mg q6 2) Focal Seizure - Likely secondary to above -Check 20 minute EEG - Continue Keppra 500mg BID indefinitely - Discussed seizure precautions and no driving with patient and son at bedside 3) NSCLC - Completed chemotherapy 4 weeks ago 4) Hx. Of SCC of the larynx Will follow. To be staffed by Neurologist in AM. SIGNATURE: Amanda Valdez PA-C PATIENT NAME: Tomy Munson DATE: April 07, 2018 TIME: 10:24 PM PAGER/CONTACT #: [email or web address] Observed: 04/07/2018 Status: COMPLETED Source: [facility] 9:39 PM CLINIC OTHER CAMPUS REPOSITORY HNO ID: [id number] Author: Yoselin Hennessy Service: Hospital Medicine Author Type: Physician Type: Progress Notes Filed: 04/07/2018 9:41 PM Note Text: Advance Care Planning discussion Parties in Attendance patient and son Patient's decision making capacity -capable to making decisions Goals of care-home after discharge Plan-would like a neurosurgery input regarding brain mets Code Status-Full code Time spent discussing advanced care planning-16 min CONSULT PROG Observed: 04/07/2018 Status: COMPLETED Source: [facility] 8:[address] [facility] OTHER [place] REPOSITORY HNO ID: [id number] Author: [facility] [place] [place] [facility] Service: Neurosurgery Author Type: Health Clay Burner Type: Consult Progress Note Filed: 04/07/2018 8:09 PM Note Text: Cnslt to Neurosurg- Dr Castillo answering service notified () 04/07 @20:05 HISTORY PHYSICAL Observed: 04/07/2018 Status: COMPLETED Source: [facility] 7:59 PM CLINIC OTHER CAMPUS REPOSITORY HNO ID: [id number] Author: Yoselin Hennessy Service: Hospital Medicine Author Type: Physician Type: HANDP Filed: 04/07/2018 9:16 PM Note Text: DEPARTMENT OF HOSPITAL MEDICINE HISTORY AND PHYSICAL EXAM SERVICE DATE: 04/07/2018 SERVICE TIME: 7:59 PM Primary Care Physician: Alfred Sarmiento CNP NIGHT AND WEEKEND COVERAGE: After 7pm, please call cross cover pager #[phone] Subjective CHIEF COMPLAINT: Brain metastases. HPI: This is a 62 year old male was transferred from [facility] for neurosurgery evaluation due to brain metastases. Patient was diagnosed with squamous cell carcinoma of larynx 3 years ago, s/p chemo/XRT, since then on PEG feeding. In October 2017 CT of chest demonstrated a left infrahilar mass compressing the left mainstem bronchus, had endobronchial stent placed but then removed due to sub-optimal position. Bx showed non small cell carcinoma. At that time had thoracentesis done with Pleurx catheter placement. Patient completed chemotherapy for lung cancer 4 weeks ago. Five days ago had one episode of possible seizure, it started with left hand cramping, hand claw followed with seizure like activity of left arm that lasted few minutes. Patient had another episode like this yesterday. Since then he has weakness and numbness of LUE. PCP saw him yesterday, sent to [facility] for admission, MRI of brain done and revealed two heterogeneous ring-enhancing masses in the right cerebellum with severe local vasogenic edema. CT of abdomen/pelvis-no metastases. Patient denies headache, visual changes or nausea. PAST MEDICAL HISTORY Diagnosis Date - Anemia - Dysphagia - Hyponatremia - Lung cancer (HCC) - Malnutrition (HCC) - Squamous cell carcinoma head and neck - Xerostomia PAST SURGICAL HISTORY Procedure Laterality Date - COLONOSCOPY 02/01/16 - EGD 02/27/16 - INSERT PLEURAL CATHETER 11/11/2017 - LX UMBILICAL HERNIA REPAIR as a child - PAST SURGICAL HISTORY OF Left wrist surgery - PAST SURGICAL HISTORY OF powerport placed - PEG TUBE PLACEMENT HX FAMILY HISTORY Problem Relation Age of Onset - None Other Social History Substance Use Topics - Smoking status: Former Smoker - Smokeless tobacco: Never Used - Alcohol use No MEDICATIONS: Reviewed ALLERGIES Allergen Reactions - Iodinated Contrast-* Rash REVIEW OF SYSTEM: GENERAL: No weight loss, malaise or fevers HEENT: Negative for frequent or significant headaches, No changes in hearing or vision, no nose bleeds or other nasal problems NECK: Negative for lumps, goiter, pain and significant neck swelling RESPIRATORY: Negative for cough, hemoptysis, wheezing, COPD, dyspnea or shortness of breath CARDIOVASCULAR: Negative for chest pain, leg swelling, hypertension, CHF or palpitations GI: No nausea, vomiting, or diarrhea : No history of dysuria, frequency or incontinence MUSCULOSKELETAL: Negative for joint pain or swelling, back pain or muscle pain SKIN: Negative for lesions, rash, and itching PSYCH: Negative for sleep disturbance, mood disorder and recent psychosocial stressors HEMATOLOGY/LYMPHOLOGY: Negative for prolonged bleeding, bruising easily or swollen nodes ENDOCRINE: Negative for cold or heat intolerance, polyuria, polydipsia and goiter NEURO: No history of headaches, syncope, paralysis, seizures or tremors Objective PHYSICAL EXAM: BP 117/60 Pulse 81 Temp (Src) 98.1 (Oral) Resp 18 SpO2 96% GENERAL: Alert, no distress, cooperative SKIN: Skin color, texture, turgor normal. No rashes or lesions. HEENT: normocephalic, atraumatic, EOMI, KAYLA, sclerae anicteric NECK: No jugulovenous distention, Supple, no thyromegaly or lymphadenopathy. Trachea midline. LUNGS: Lungs clear to auscultation b/l, no wheezes, rhonchi or crackles. Good respiratory effort. CARDIAC: Normal S1 and S2; no rubs, murmurs, or gallops ABDOMEN: Abdomen soft, non-tender, BS normal, No masses or organomegaly EXTREMITIES: Extremities normal, no deformities, edema, clubbing or skin discoloration. Good capillary refill., No ulcers NEURO: Gait normal. Cranial nerves II-XII intact DATA: Diagnostic tests reviewed for today's visit: Most recent labs and imaging results. Assessment/Plan Active Problems: Brain metastases (HCC) POA: Yes Assessment AND Plan: -continue Decadron -MRI of brain done and images uploaded in our system -neurosurgery consulted Laryngeal cancer (HCC) POA: Yes Assessment AND Plan: squamous cell Seizures (HCC) POA: Yes Assessment AND Plan: secondary to brain mets -start on Keppra bid -consult neurology Dysphagia POA: Yes Assessment AND Plan: d/t laryngeal cancer -continue PEG feeding -nutrition consult Lung cancer (HCC) POA: Yes Assessment AND Plan: non small lung carcinoma -s/p chemotherapy -stable. Left renal cyst VTE Prophylaxis: Heparin 5000 units Sub Q BID Disposition: Home Plan of care discussed with: Patient and Family/Other: son SIGNATURE: Yoselin Hennessy MD PATIENT NAME: Tomy Munson DATE: April 07, 2018 TIME: 7:59 PM PAGER/CONTACT #: DISCHARGE SUMMARY Observed: 04/07/2018 Status: F Source: [place] 3:05 PM [facility] REPOSITORY [facility] Medical Records Department [address] [place] [id number] Discharge Summary 04/07/18 1430 MR#: [id number] Acct: [id number] Name: TOMY MUNSON Rep #: [id number] : [id number] 62 From: Robbi GUTHRIE PCP: Alfred Sarmiento CAD ENGINEER-C Status: ADM IN Y Location[place] [facility] [place] [id number] <Robbi Pathak - Last Filed: 04/07/18 14:48> Discharge Date and Diagnosis - Problem List Patient Problems: Active and Suspected Problems (Last Reviewed 03/12/18 @ 09:24 by Jania Vallejo) Weakness (Acute) Seizure (Acute) Brain cancer (Acute) Metastatic cancer to brain (Acute) Date of Admission: 04/06/18 Date of Discharge: 04/07/18 - Primary Discharge Diagnosis Active and Suspected Problems (Last Reviewed 03/12/18 @ 09:24 by Jania Vallejo) New onset simple partial seizure 2/2 newly found brain mets 2/2 squamous cell lung cancer, hx of laryngeal cancer Anemia of chronic disease Hx Afib Hx Hypothyroidism PEG tube in place Hx nicotine abuse - Secondary Discharge Diagnosis Chronic Problems (Last Reviewed 03/12/18 @ 09:24 by Jania Vallejo) PEG (percutaneous endoscopic gastrostomy) status (Chronic) Tobacco dependence in remission (Chronic) Pulmonary nodule, left (Chronic) History of laryngeal cancer (Chronic) Non-small cell carcinoma of left lung, stage 3 (Chronic) Dysphagia (Chronic) Chronic anemia (Chronic) Atrial fibrillation and flutter (Chronic) Pleural effusion (Chronic) Chemotherapy management, encounter for (Chronic) Hospital Course and Treatment Imaging Results: CT/Abdomen/Pelvis without Cont IMPRESSION: 1. Trace pericardial effusion. This is new in the interval. 2. Borderline splenomegaly. 3. Stable 3.2 cm cyst of the left kidney. 4. A PEG tube is present in the stomach. 5. There is a large amount of colonic stool. 6. There is no evidence of free intra-abdominal or intrapelvic air or fluid. CT/Brain/Head W/WO Contrast IMPRESSION: Right occipital and parietal lobe rim enhancing lesions with associated white matter edema and midline shift toward the left. Findings are consistent with metastatic disease. There is no evidence of acute infarct or intracranial hemorrhage. MRI/Brain W/WO Contrast IMPRESSION: 3 ring-enhancing brain masses are now present, located in the right frontal lobe, right temporo-occipital region, and right cerebellar hemisphere. Signal characteristics are most compatible with metastatic disease. No infarcts or hemorrhages are seen. Consults: Sara - Ministerio/Onc Jodie - Neurology Operations: None Procedures: None Summary of Care Provided: Hospital Course: The patient is a 62 year old M with pmhx of laryngeal ca in remission, squamous cell lung cancer pt of Dr. Leigh/Sara last chemo 03/05 last rads 01/03, with PEG tube for feeding in place, also with hx of Afib, hypothyroidism, who presented to the ER with c/o seizure described as his left arm and hand ney and shaking uncontrollably up and down with fist clenching for several minutes. He also had some nausea and vomiting. He had a CT of the brain in the ER and was found to have ring enhancing lesions and a midline shift. He was admitted to the [facility] for new onset simple partial seizure 2/2 mets with oncology and neuro consulted. He was placed on IV keppra and had no further seizure activity. He was placed on decadron as well. He had no issues after admission. An MRI of the brain w and w/o contrast was obtained showing 3 ring enhancing lesions located in the right frontal lobe, right temporo-occipital region, and right cerebellar hemisphere. Oncology and Neurology agreed that he needed seen by a neurosurgeon and would need surgery and focal radiation therapy. He was accepted at [facility] under the care of Dr. Arguello. He was discharged to [facility] in stable condition. Also of note in the ER a CT abd/pelvis was obtained which with nonconcerning results as above. This patient was seen by Robbi Pathak PA-C under the supervision of Dr. France. [] Patient Problems: Active and Suspected Problems (Last Reviewed 03/12/18 @ 09:24 by Jania Vallejo) Weakness (Acute) Seizure (Acute) Brain cancer (Acute) Metastatic cancer to brain (Acute) - Physical Exam General: Alert, Oriented x3, Cooperative HEENT: Atraumatic, PERRLA, EOMI, Normocephalic Neck: Supple, No JVD, Negative Carotid Bruits Lungs: Clear to auscultation, Normal air movement Cardiovascular: Regular rate, No murmurs Abdomen: Bowel Sounds Present, Soft, Non Tender Extremities: No edema, Capillary Refill Less than 3 Seconds Skin: No rashes, No breakdown Musculoskeletal: No Tenderness to Palpation of Joints or Extremities Neurological: Cranial nerves II-XII grossly intact Psych/Mental Status: Normal Affect, Appropriate, Alert and oriented to time, place, person, mood and affect Vital Signs Temp Pulse Resp BP Pulse Ox 98.6 F 76 18 110/59 L 97 04/07/18 13:30 04/07/18 13:30 04/07/18 13:30 04/07/18 13:30 04/07/18 13:30 Oxygen Delivery Method Room Air Weight: 125 lb 0.034 oz Body Mass Index (BMI) 19.5 Intake and Output for Last 24 Hours Intake Total 2642 / 2642 Output Total 900 / 900 Balance 1742 / 1742 Laboratory Tests Past 24 Hrs WBC 4.7 RBC 2.20 L Hgb 7.7 L WBC 3.2 L RBC 2.32 L Hgb 8.2 L Hct 26.3 L MCV 113.4 H MCH 35.3 H MCHC 31.2 L RDW 19.9 H RDW Differential 78.9 H Discharge Diet: - - PEG feedings as directed by skiver blockers: Rec start trophic feeds of Jevity 1.5 via PEG at 30cc/hour w/ 80cc H2O flush every 4 hours to provide 1080 calories, 46 g protein, and 1027cc free fluid/day. If pt tolerates tube feedings, would increase rate by 10cc every 8 to 12 hours as tolerated until goal rate of 60cc/hour w/ 175cc H2O flush to provide 2160 calories, 92 g protein, and 2144cc free fluid/day. Discharge Activity: Return to Normal Activity Home Medications: Medications to take at Discharge Albuterol IH (ProAir) [Proair Hfa] 2 puff INHALATION Q6H PRN #1 inhaler 12/18/17 levothyroxine 150 mcg tablet 150 mcg GT DAILY tab 12/29/17 Clonazepam 0.5 mg GT Q8H PRN 01/12/18 Ferrous Sulfate 325 mg GT BIDCM 90 Days #180 tab 03/24/18 Diltiazem HCl 60 mg GT BID 04/06/18 Lactose-Reduced Food/Fiber [Isosource 1.5 Magno Liquid] 750 ml GT BID 04/06/18 Omeprazole [Prilosec] 20 mg GT DAILY 04/06/18 Oxycodone HCl/Acetaminophen [Oxycodone-Acetaminophen 10-325] 1 tab GT Q6H PRN 04/06/18 Primary Care Physician: Alfred Sarmiento, [facility] [Primary Care Provider] - Please follow up with your Primary Care Physician in: 2 weeks Additional Instructions: Further care as directed by [facility]. Disposition: Acute care Hospital Minutes spent on discharge:: 35 Patient Condition:: Stable Medical Necessity - Tobacco Use Smoking Status: Former smoker Meaningful Use Info Meaningful Use Diagnoses (Choose all that apply): None applicable <Liam France - Last Filed: 04/07/18 15:05> Discharge Date and Diagnosis - Primary Discharge Diagnosis Active and Suspected Problems (Last Reviewed 03/12/18 @ 09:24 by Jania Vallejo) Weakness (Acute) Seizure (Acute) Brain cancer (Acute) Metastatic cancer to brain (Acute) - Secondary Discharge Diagnosis Chronic Problems (Last Reviewed 03/12/18 @ 09:24 by Jania Vallejo) PEG (percutaneous endoscopic gastrostomy) status (Chronic) Tobacco dependence in remission (Chronic) Pulmonary nodule, left (Chronic) History of laryngeal cancer (Chronic) Non-small cell carcinoma of left lung, stage 3 (Chronic) Dysphagia (Chronic) Chronic anemia (Chronic) Atrial fibrillation and flutter (Chronic) Pleural effusion (Chronic) Chemotherapy management, encounter for (Chronic) Hospital Course and Treatment Imaging Results: 04/07/18 07:22 Brain W/WO Contrast [MRI] Stat Summary of Care Provided: This patient was seen in conjunction with Robbi GUTHRIE. I have independently interviewed and examined the patient and reviewed pertinent history, examination findings, laboratory and plan of management. I have reviewed the note and agree with the documented findings with the few additional points. In brief, patient is admitted for new onset seizure secondary to 3 ring-enhancing lesions found on brain with significant vasogenic edema and midline shift. Patient had CT scan brain and then MRI brain was done. MRI brain shows right frontal, right occipital and right cerebellum ring-enhancing lesions with significant vasogenic edema and midline shift. Patient was started on IV Decadron and Keppra. Seen by neurologist. As the patient needs neurosurgical consult and further management for increased intracranial pressure, this was discussed with the patient son and [id number] present in the room.Patient is at risk of tonsillar herniation secondary to increased ICP. The patient is in the process of being transferred to [facility] under the care of Dr. Arguello. I have discussed my assessment with Robbi GUTHRIE and orders have been reviewed. [] Objective: Please see my progress note of today. - Physical Exam Vital Signs Temp Pulse Resp BP Pulse Ox 98.6 F 76 18 110/59 L 97 04/07/18 13:30 04/07/18 13:30 04/07/18 13:30 04/07/18 13:30 04/07/18 13:30 Oxygen Delivery Method Room Air Weight: 125 lb 0.034 oz Body Mass Index (BMI) 19.5 Intake and Output for Last 24 Hours Intake Total 2642 / 2642 Output Total 900 / 900 Balance 1742 / 1742 Laboratory Tests Past 24 Hrs WBC 4.7 RBC 2.20 L Hgb 7.7 L WBC 3.2 L RBC 2.32 L Hgb 8.2 L Hct 26.3 L MCV 113.4 H MCH 35.3 H MCHC 31.2 L RDW 19.9 H RDW Differential 78.9 H Code Visit Inpatient E AND M: [id number] Disch Hosp 04/07/18 1449 <Electronically signed by Robbi GUTHRIE> Date Robbi GUTHRIE 04/07/18 1505<Electronically signed by Liam France MD> Cosigner Signature (if applicable): Date Liam France MD CC: ROYCE Sarmiento; JERRI Pathak; Liam France MD Signed CONSULTATION Observed: 04/07/2018 Status: F Source: GIANNA 12:59 PM [facility] REPOSITORY [facility] Medical Records Department [address] [place] [address] Consultation 04/07/18 1233 MR#: [id number] Acct: [id number] Name: TOMY MUNSON Rep #: [id number] : 1955 62 From: Vish Crespo DO PCP: ROYCE Montero Status: ADM IN Y Location[place] [facility] [facility] [place]168-5 Date of Service: 04/06/18 Referring Provider: Dr. 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 Unfortunately due to treatment delays the lung cancer appears to have progressed and caused complete collapse of the left lung romeo and interventional pulmonology was unable to place stent. From 11/25/17 - 01/12/18: Patient received definitive chemoradiation therapy to the left lung and hilar disease consisting of 6000 cGy in 30 fractions. History of Present Illness: 06/19/2015: Patient underwent direct laryngoscopy with biopsy of the supraglottic mass which demonstrated invasive moderately differentiated squamous cell carcinoma (p16 negative). 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 From 07/04/15-08/25/15 he received 7104 cGy in 36 fractions. Chemotherapy was given from 07/04/2015 through 08/09/2015 and consisted of 3 cycles of 100 mg/m cisplatin. 12/23/2016: CT chest with contrast was performed which demonstrated a 1.5 x 1.4 cm noncalcified nodule in the peripheral aspect of the superior segment of the left lower lobe as well as a 5.3 mm noncalcified nodule in the posterior medial segment of the left lower lobe. 01/02/2017: Patient underwent CT-guided biopsy of the left lower lung mass which demonstrated evidence for pneumocyte to hyperplasia with mild atypia but no evidence of malignancy in the submitted specimen. 04/07/2017: CT chest with contrast was performed which showed that the previously seen spiculated mass in left lower lobe had enlarged and now measures 2.04 x 1.72 cm, there is a slightly enlarged small indistinct nodular density in the right upper lobe medially posterior to the trachea which measures 0.46 cm and on the previous exam measured 0.3 cm, there is a lymph node anterior to the right mainstem bronchus which on short axis measures 0.95 cm and previously was 0.65 cm, enlarged left hilar lymph node measuring 1.1 cm is new. 07/07/2017: CT chest with contrast was performed which demonstrated a 2.4 x 1.2 cm lobulated irregular nodular density in the peripheral aspect of the left lower lobe which has increased in size from the previous study, a prominent left hilar lymph node is measured at 2.2 cm. 09/16/2017: CT chest with contrast was performed and demonstrated that the left lower lobe nodular density measuring 3.5 x 2.5 cm and previously measured 2.4 x 1.2 cm, there is a new left infrahilar mass measuring about 4.2 by 3.4 cm resulting in complete occlusion of the right lower lobe bronchus with extension into the segmental bronchi of the right lower lobe. 09/26/2017: Bronchoscopy with EBUS was performed. There was noted to be a large circumferential endobronchial lesion noted at the bifurcation of the left upper and left lower lobes and this lesion appeared to nearly completely obstructed orifice of the left lower lobe takeoff. On ultrasound this lesion measured at least 3.5 x 4.5 cm and several biopsies were obtained. Pathology demonstrated fragment of necrotic material with atypical squamous cells suspicious for carcinoma (CK7 weakly positive, CK20/TTF1/p16 all negative). 10/14/2017: MRI brain was completed which showed no evidence for intracranial metastatic disease. 10/16/2017: PET scan was performed which showed evidence for persistent and newly defined increased glucose concentration manifest in the left mid lower posterior, posterior lateral hemithorax pulmonary parenchyma with a calculated SUV of 12.7, newly defined increased glucose concentration manifest in the precarinal posterior mediastinum and left thoracic perihilum. There is interim metabolic resolution of the previously identified left lower lobe pulmonary parenchymal as well as laryngeal structure hypermetabolic abnormalities. 11/07/2017: Patient underwent ultrasound-guided thoracentesis and 530 mL of blood-tinged fluid was drained, there were no malignant cells identified in the retreat fluid. 11/10/2017: Patient was admitted after returning to the hospital with increasing shortness of breath over the weekend. 11/11/2017: Left tunneled Pleurx catheter was placed 11/12/2017: CT chest without contrast was performed which demonstrated progressive opacification of the left hemithorax with only a small amount of aeration within the left upper lobe, ill-defined hilar density consistent with the previously identified mass/adenopathy, volume loss within the left chest with mediastinal shift towards the left, small nodular density along the right side of the trachea which may represent adherent debris or mass, complete occlusion of the left mainstem bronchus, small left pleural effusion with pleural catheter in place. 11/13/2017: Due to the need for interventional pulmonology consultation the patient was transferred to [facility] to attempt bronchoscopy and stent placement. Mucous plugging and tumor were noted in the left mainstem bronchus, an endobronchial stent was placed but then removed due to suboptimal position and therefore he was sent back to the ICU and extubated and then discharged on 11/14/2017. From 11/25/17 - 01/12/18: Patient received definitive chemoradiation therapy to the left lung and hilar disease consisting of 6000 cGy in 30 fractions. 01/22/18: Initiated consolidative carbo/taxol 04/06/2018: Patient presented to the emergency room with a 3-day history of nausea/vomiting, left hand weakness/seizure activity. 04/06/2018: CT head with and without contrast was performed which demonstrated which demonstrated 3 lesions with associated edema and 5.5 mm midline shift to the left. 04/06/2018: CT abdomen/pelvis was completed which demonstrated trace pericardial effusion, borderline splenomegaly, stable 3.2 cm cyst in the left kidney, and no other abnormalities identified including evidence for metastatic disease. 04/07/2018: MRI of the brain was completed which demonstrated evidence of 3 ring enhancing lesions that are compatible with metastatic disease. These lesions include a 1.7 x 1.6 cm lesion in the right frontal cortex, a 2.6 x 2.5 cm lesion in the right temporal occipital region, and a 1 x 0.9 cm lesion in the right cerebellar hemisphere. There is noted to be associated edema with all lesions. Radiation Treatment History: 1) From 07/04/15-08/25/15 he received 7104 cGy in 36 fractions. Chemotherapy was given from 07/04/2015 through 08/09/2015 and consisted of 3 cycles of 100 mg/m cisplatin. 2) From 11/25/17 - 01/12/18: Patient received definitive chemoradiation therapy to the left lung and hilar disease consisting of 6000 cGy in 30 fractions. Interval History: Patient was most recently undergoing consolidative chemotherapy with carbo/Taxol under the care of medical oncology. Approximately 3 days prior to admission patient developed twitching seizure-like activity involving the left hand and arm which lasted approximately 3 minutes. He developed no confusion after this and did not have seizure- like activity in any other parts of his body. He had no change in cognitive function or memory and did not lose consciousness during this episode. He then had a recurrence 2 days ago of a very similar experience involving the left hand and arm lasting approximately same amount of time. Over these last few days he is also noted progressively worsening in his strength involving the left hand and has found that he is dropping things more commonly and having a difficult time holding onto things/clenching his hand. He denied having weakness in any other motions in his left arm and denies having any sensory changes. Proximally 5 days ago he developed nausea with occasional vomiting. All feeding is through his PEG tube as he has not been able to swallow since completing treatment for his larynx cancer in 2016. He denies headaches, vision changes, changes in speech, ataxia, falls, changes in cognitive function/memory, weakness anywhere other than his left hand, numbness anywhere in his body, unexpected weight loss, or fatigue. He denies having any worsening in breathing and specifically denies having cough, hemoptysis, increased shortness of breath on exertion. Since initiating Decadron last night he has noted essentially normal strength in the left hand and has not had any other seizure activity for the last 2 days at least. The patient denies having any other problems or concerns at this time. Family History Father Heart disease Medical History Pain (Acute) Tobacco dependence in remission (Chronic) Pulmonary nodule, left (Chronic) History of laryngeal cancer (Chronic) Non-small cell carcinoma of left lung, stage 3 (Chronic) Dysphagia (Chronic) Chronic anemia (Chronic) Atrial fibrillation and flutter (Chronic) Pleural effusion (Chronic) Chemotherapy management, encounter for (Chronic) Anemia (Acute) Chicken pox (Acute) Dysphagia (Acute) Hypernatremia (Acute) Hyponatremia (Acute) Hypothyroidism (Acute) Laryngeal cancer (Acute) Lymphadenitis (Acute) Measles (Acute) Mumps (Acute) Surgical History PEG (percutaneous endoscopic gastrostomy) status (Chronic) Status post insertion of percutaneous endoscopic gastrostomy (PEG) tube (Chronic) port placement (Chronic) History of hernia repair (Resolved) History of thoracentesis (Resolved) LEFT WRIST SURGERY (Resolved) Social History - Tobacco Smoking Status Former smoker Social History - Living Arrangements Patients Living Arrangements Alone Home Medications Medication Instructions Recorded Albuterol IH (ProAir) [Proair Hfa] 2 puff INHALATION Q6H PRN #1 12/18/17 levothyroxine 150 mcg tablet 150 mcg GT DAILY tab 12/29/17 Allergy/AdvReac Type Severity Reaction Status Date / Time Iodinated Contrast- Oral and Allergy Mild Rash Verified 04/06/18 17:24 IV Dye [CT] I have reviewed the medical, surgical, and other pertinent history in details and have updated medication and allergy information in the electronic medical record. Review of Systems: A 12-point review of systems was completed and was negative except for what is noted in the HPI/Interval History and by the nurse. Height/Weight/BMI: Height: 5 ft 7 in Weight: 125 lbs (stable) Vital Signs Temperature 97.8 F 04/07/18 07:30 Physical Exam: ECO KARNOFSKY SCORE: 70% CONSTITUTIONAL: Well-developed, well-nourished, and in no apparent distress. Examined while in hospital bed HEENT: No evidence of thrush or lesions within the visualized oropharynx or oral cavity. No trismus. Pupils are equal, round, and reactive to light and accommodation. Extraocular movements are intact. Sclerae are anicteric. NECK: Supple,with no thyromegaly, and non-tender. Trachea midline. No cervical or supraclavicular adenopathy noted. CARDIAC: Regular rate and rhythm. Normal S1, S2. No murmurs, rubs, or gallops. PULMONARY/CHEST: Lungs are clear to auscultation and percussion bilaterally. No wheezes, rhonchi, or crackles noted. No increased work of breathing. ABDOMINAL: Abdomen soft, non-tender, non-distended. PEG tube in place without abnormality. No hepatomegaly. Normoactive bowel sounds in all four quadrants. No guarding, rebound. BACK: Straight and aligned. No CVA tenderness. Axial skeleton non-tender to percussion. EXTREMITIES: Full range of motion in all four extremities, with normal strength equally and symmetrically. No evidence of edema. No clubbing. NEUROLOGICAL EXAM: Alert and oriented x 3. Cranial nerves II through XII are grossly intact. No focal neurological deficit. Speech is fluent. There is no upper or lower extremity sensory deficit or motor deficit. Muscle strength is 5/5 in all muscle groups. Gait not tested. Finger to nose slower with the left hand but no dysmetria noted PSYCHIATRIC: Appropriate mood and affect for the clinical situation. 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 Unfortunately due to treatment delays the lung cancer appears to have progressed and caused complete collapse of the left lung romeo and interventional pulmonology was unable to place stent. From 11/25/17 - 01/12/18: Patient received definitive chemoradiation therapy to the left lung and hilar disease consisting of 6000 cGy in 30 fractions. I reviewed the findings of the CT brain and MRI brain with the patient and his family. Specifically this demonstrates evidence for 3 metastatic lesions, one measuring about 2 cm in the right parietal lobe, one measuring 2.5-3 cm in the right parieto-occipital lobe, and one measuring approximately 1 cm in the right cerebellar hemisphere, there is a fairly large amount of associated edema. In terms of his symptoms he appears to have had a focal seizure twice and has had weakness in the left hand as well as nausea and vomiting, his symptoms appear to have completely stabilized since initiating Decadron yesterday. I reviewed with the patient that the most likely origin of these lesions is from metastatic non-small cell lung cancer given his recent completion of chemoradiation. I also discussed that there is no evidence of disease progression within the abdomen/pelvis but there will be needed CT of the chest to confirm there is no disease progression in this area. I had a detailed discussion with the patient and his family regarding the diagnosis and treatment of brain metastases. Specifically we discussed surgery and radiation therapy options and I explained that systemic therapy would not be appropriate to address these lesions. Given the small number of lesions and large size with symptoms I recommend that he have a neurosurgical evaluation for consideration of removal of the 2 larger lesions. If he is able to undergo surgical resection then I recommended he receive fractionated stereotactic radiation therapy to the resection cavity as well as likely radiosurgery to the small cerebellar lesion. In the event that he is unable to undergo surgical resection then I recommend that he receive fractionated stereotactic radiation therapy alone to the largest lesion and possibly he could receive radiosurgery to the remaining 2. I also had a brief discussion about whole brain radiation therapy but explained that this treatment is generally reserved for patients with multiple (usually greater than 10-15) brain metastases that cannot be treated with focal radiation or surgical resection. I briefly discussed and contrasted the potential toxicities to both focal radiation and whole brain radiation therapy. I explained that we do not have neurosurgical services at our hospital and that he will need to be transferred to a facility that can provide this evaluation. I also explained that we do not complete fractionated stereotactic radiation therapy to the brain or brain radiosurgery at our facility and therefore I would recommend that he have this treatment elsewhere. After discussion with the hospitalist, plan is for transfer depending on social work and insurance. I recommend continuing Decadron 4 mg 3 times daily, Keppra, and PPI for gastric prophylaxis. Thank you for allowing me to participate in the management and care of your patient. If I may answer any questions in the interim, please do not hesitate to contact me at any time. Vish Crespo DO, MS [employer] Maker, Department of Radiation Oncology [facility] 04/07/18 3109 <Electronically signed by Vish Crespo DO> Date Vish Crespo DO Cosigner Signature (if applicable): Date CC: ROYCE Sarmiento; Roland Feliciano MD; Nino Leigh MD; Serina Hollingsworth MD; Liam France MD Signed CBC W/DIFF, AUTOMATED Collected: 04/07/2018 Status: F Source: GIANNA [facility] Order Comment: SPECIMEN OBTAINED FROM LINE DRAW TYPE CODE TESTS RESULT OUT OF RANGE REFERENCE UNITS LAB L100.1000 4.4-11.0 K/mm3 Low WBC 3.2 LAB L100.1200 4.6-6.2 M/mm3 Low RBC 2.32 LAB L100.1300 13.0-16.5 g/dl Low HGB 8.2 LAB L100.1400 40-54 % Low HCT 26.3 LAB L100.1500 80-94 fL High MCV 113.4 LAB L100.1600 27.0-32.0 pg High MCH 35.3 LAB L100.1700 32-36 g/gl Low MCHC 31.2 LAB L100.1810 11.6-14.6 % High RDW CV 19.9 LAB L100.1820 35.1-43.9 fl High RDW SD 78.9 LAB L100.1900 150-450 K/mm3 Normal PLT 405 LAB L100.2000 6.2-12.0 fl Normal MPV 8.2 LAB L100.2100 47-70 % High NEUT% 94.0 LAB L100.2200 19-41 % Low LY% 4.1 LAB L100.2300 0-10 % Normal MONO% 1.3 LAB L100.2400 0-5 % Normal EO% 0.0 LAB L100.2500 0-1 % Normal BASO% 0.0 LAB L100.2550 0.0-0.9 % Normal IM GRAN % 0.600 Result Comment: IG% - Immature Granulocytes (promyelocytes, myelocytes and metamyelocytes) > 1% indicates that a LEFT SHIFT is Present. LAB L100.2620 2.0-7.7 X10 3/uL Absolute Neut Normal 3.0 LAB L100.2720 0.83-4.51 X10 3/ul Low Absolute Lymph 0.13 LAB L100.4500 SMEAR COMMENT Normal SCAN LAB L100.7300 ANISO Normal 1+ LAB L100.7500 POLYCHROMASIA Normal 1+ LAB L100.7600 HYPOCHROMASIA Normal 1+ LAB L100.7800 MACROCYTE Normal 1+ Performed By: #### L100.0100 #### [facility] [address] [place], [place], [id number] BASIC METABOLIC Collected: 04/07/2018 Status: F Source: GIANNA PROFILE (BMP) 4:28 AM [facility] REPOSITORY Order Comment: SPECIMEN OBTAINED FROM LINE DRAW TYPE CODE TESTS RESULT OUT OF RANGE REFERENCE UNITS LAB L501.0100 74-106 mg/dL High GLU 128 Result Comment: Fasting Glucose result greater than or equal to 126 mg/dL suggests DIABETES MELLITUS per A.D.A. criteria. Please note revised GLUCOSE reference range effective 2017. LAB L501.1000 7-18 mg/dL High BUN 21 LAB L501.1100 0.70-1.30 mg/dL Normal CREAT,SERUM 1.11 Result Comment: The validity of the calculated GFR AND GFRAA in patients over 70 years has not been determined. Clinical correlation is essential. LAB L501.1110 >60 mL/min Normal EST GFR 71 Result Comment: Non- GFR Calc LAB L501.1115 >60 mL/min Normal EST GFR - AA 86 Result Comment: GFR Calc LAB L501.1255 ml/min Normal Estimated CRCL 55.34 LAB L501.1300 10-20 RATIO Normal BUN/CRE 18.9 LAB L501.2200 8.5-10 mg/dL Normal .1 CA 8.9 LAB L501.5300 136-14 mmol/L Normal 5 NA 139 LAB L501.5600 3.5-5. mmol/L Normal 1 K 4.5 LAB L501.5900 98-107 mmol/L Normal CL 100 LAB L501.6100 21.0-3 mmol/L Normal 2.0 CO2 26.0 LAB L501.6200 5-15 Normal GAP 13 Performed By: #### L500.2500 #### [facility] [address] [place], [address] EMERGENCY DEPARTMENT Observed: 04/06/2018 Status: F Source: BEECHER SUMMARY 10:48 PM [facility] REPOSITORY [facility] Medical Records Department [address] [facility] [place] [address] Emergency Department Summary 04/06/182034 MR#: [id number] Acct: [id number] Name: TOMY MUNSON Rep #: [id number] : 1955 62 From: Leah Hdz MD PCP: ROYCE Montero Status: ADM IN - ER Visit Summary Date of Service: 04/06/18 Chief Complaint: Left arm weakness History of Present Illness: The patient is a 62 M who finished chemotherapy for laryngeal cancer and lung cancer approximately 1 month ago. Patient states today he took his medications through his PEG tube and then vomited on 2 separate occasions. He also presents with complaint of left hand cramping that occurred last week followed by rhythmic arm motions for several minutes. He had left hand and arm weakness since that time. Last night he had the cramping in his hand recurred with the rhythmic arm motions. Patient denies any known history of brain metastasis. Patient does follow with Dr. Leigh. Physical Examination: Vital signs are unremarkable. Patient sitting upright in bed no acute distress. Head neck examination is grossly unremarkable. He has no C-spine or paracervical muscular tenderness. Heart is regular rate and rhythm. Lung sounds are clear. Abdomen is soft with no focal tenderness. PEG tube is in place. Hypoactive bowel sounds are present. Neuro exam does reveal left arm weakness. He has strong distal pulses. Test Results: CBC was normal white count with a hemoglobin of 7.7. Chemistry studies normal. LFTs grossly unremarkable. Coags normal. Troponin negative. CT flank shows trace pericardial effusion. Borderline cardiomegaly is noted. PEG tube is present. There is a large amount of colonic stool. CT the head shows right occipital and right parietal lobe rim enhancing lesions with white matter edema and midline shift toward the left measuring 5.5 mm. Emergency Department Course and Treatment: Patient was given IV fluids. Test results were discussed with patient and son at bedside as well as . He advises that the patient needs steroids and with this rhythmic arm motion being concerning for seizure he will be started on Keppra. Patient will need an MRI to further evaluate the number of lesions present and best treatment options. Patient has been ordered initial dose of Decadron and Keppra. Treatment Plan: [] Disposition: Admit Impression: 1. Left arm weakness 2. Metastatic lesions to brain 3. Probable focal seizure left arm This note was generated with [employer] software. It may contain incorrect words, spelling, and punctuation that were not noted in review of the chart prior to signing ED Disposition - Plan for ED Patient: Chief Complaint: Weakness Referrals: Alfred Sarmiento, CAD ENGINEER-C [Primary Care Provider] - What to do if you have Problems For any increased pain, shortness of breath, bleeding, nausea or vomiting, chest pain, or any unexpected problems, contact your Primary Care Provider. Call [facility] ([phone]) or report to the closest Emergency Room. Call 911 if necessary. 04/06/18 2248 <Electronically signed by Leah Hdz MD> Date Leah Hdz MD Cosigner Signature (If Indicated): Date CC: CAD ENGINEER-C Alfred Sarmiento BRAIN W/WO CONTRAST Observed: 04/06/2018 Status: F Source: BEECHER 9:47 PM [facility] REPOSITORY [facility] Imaging Services [address] [place] [address] Brain W/WO Contrast MR#: [id number] Acct: [id number] Name: TOMY MUNSON Rep #: [id number] : 1955 M 62 From: Dennys Romero MD PCP: ROYCE Montero Status: ADM IN Study: Brain W/WO Contrast Date of Exam: 04/07/18 Exam# [id number] Ordering Dr: Kayode Brennan MD STUDY: MRI BRAIN WITH AND WITHOUT CONTRAST REASON FOR EXAM: Male, 62 years old. Weakness and history of lung cancer TECHNIQUE: Standardized multiplanar fat and water weighted pulse sequences were obtained. 5 ml of Gadavist contrast material was administered intravenously for the contrast portion of the examination. COMPARISON: CT 04/06/2018, MRI 10/14/2017 FINDINGS: 2 heterogeneous ring-enhancing masses are now noted in the right cerebrum. The first is in the posterior right frontal cortex measuring 17 x 16 mm, and the second is in the right temporooccipital subcortical white matter measuring 26 x 25 mm. Both lesions are associated with severe local vasogenic edema. There is effacement of the occipital horn of the right lateral ventricle. There is effacement of all adjacent sulci. A third lesion is identified in the anterior right cerebellar hemisphere measuring 10 x 9 mm. It is associated with mild local vasogenic edema. All 3 lesions are associated with internal T2 shine-through. The cerebral lesions both extend to the pial surface with mild adjacent dural enhancement. Normal sella turcica, pituitary gland, infundibular stalk, optic chiasm and hypothalamus. Normal tectal plate and pineal gland. Remote lacunar infarct in the left thalamus. Normal midbrain, daria and medulla. Normal basal cisterns. Normal bilateral temporal bones. Normal bilateral internal auditory canals. No demonstrated orbital abnormality, within the constraints of a routine brain study. Normal visualized paranasal sinuses. Normal calvarium and skull base. Normal visualized soft tissue structures. Normal visualized upper cervical spine. MRI/Brain W/WO Contrast IMPRESSION: 3 ring-enhancing brain masses are now present, located in the right frontal lobe, right temporo-occipital region, and right cerebellar hemisphere. Signal characteristics are most compatible with metastatic disease. No infarcts or hemorrhages are seen. Electronically Signed: Dennys Romero MD at 9:39 EST Tel , Service support , CC: ROYCE Sarmiento; Kayode Brennan MD [employer] Tanker Driver: Signed HISTORY AND PHYSICAL Observed: 04/06/2018 Status: F Source: BEECHER EXAM 9:00 PM [facility] REPOSITORY [facility] Medical Records Department [address] [place] [address] History and Physical 04/06/182047 MR#: [id number] Acct: [id number] Name: MARNITOMY Tai Rep #: [id number] : 1955 62 From: Kayode Brennan MD PCP: ROYCE Montero Status: REG ER Y Location: ED Problem List (1) Weakness Status: Acute (2) Seizure Status: Acute (3) Brain cancer Status: Acute (4) Constipation Status: Acute (5) Abdominal pain Status: Acute (6) PEG (percutaneous endoscopic gastrostomy) status Status: Chronic (7) Tobacco dependence in remission Status: Chronic (8) History of laryngeal cancer Status: Chronic (9) Dysphagia Status: Chronic (10) Chronic anemia Status: Chronic (11) Atrial fibrillation and flutter Status: Chronic History of Present Illness Date of Admission: 04/06/18 Chief Complaint: weakness, nausea and vomiting The patient is a 62 year old male patient presents to the ER with a complaint of nausea and vomiting and weakness. He describes having involuntary movement of his left arm up and down along with contraction of his right hand. He has abdominal pain/discomfort at or just below his peg tube site and has not been able to keep medication or food down through his peg tube. He is status post laryngeal cancer diagnosed three years ago and then last month for metastatic tumors in the lung for which he has been getting treatment. Today CT scan of the brain shows three brain lesions with a midline shift. He will be admitted to our facility for medical management and MRI in the AM. He will require follow up consultation with neurosurgery to ascertain if any intervention is advised. He will be placed on IV fluid, steroids and Keppra and neurology will be consulted. Past Medical History Past Medical History (Chronic Problems): Chronic Problems (Last Reviewed 03/12/18 @ 09:24 by Jania Vallejo) PEG (percutaneous endoscopic gastrostomy) status (Chronic) Tobacco dependence in remission (Chronic) Pulmonary nodule, left (Chronic) History of laryngeal cancer (Chronic) Non-small cell carcinoma of left lung, stage 3 (Chronic) Dysphagia (Chronic) Chronic anemia (Chronic) Atrial fibrillation and flutter (Chronic) Pleural effusion (Chronic) Chemotherapy management, encounter for (Chronic) Medical History: Medical History (Last Reviewed 03/12/18 @ 09:24 by Jania Vallejo) Pain (Acute) R52 Tobacco dependence in remission (Chronic) F17.201 Pulmonary nodule, left (Chronic) R91.1 History of laryngeal cancer (Chronic) Z85.21 Non-small cell carcinoma of left lung, stage 3 (Chronic) C34.92 Dysphagia (Chronic) R13.10 Chronic anemia (Chronic) D64.9 Atrial fibrillation and flutter (Chronic) I48.91, I48.92 Pleural effusion (Chronic) J90 Chemotherapy management, encounter for (Chronic) Z51.11 Anemia D64.9 Chicken pox B01.9 Dysphagia R13.10 Hypernatremia E87.0 Hyponatremia E87.1 Hypothyroidism E03.9 Laryngeal cancer C32.9 Lymphadenitis I88.9 Measles B05.9 Mumps B26.9 Allergies Iodinated Contrast- Oral and IV Dye [CT] Allergy (Mild, Verified 04/06/18 17:24) Rash Home Medications: Ambulatory Orders Medication Instructions Recorded Albuterol IH (ProAir) [Proair Hfa] 2 puff INHALATION Q6H PRN #1 12/18/17 levothyroxine 150 mcg tablet 150 mcg GT DAILY tab 12/29/17 Surgical History: Surgical History (Last Reviewed 03/12/18 @ 09:24 by Jania Vallejo) PEG (percutaneous endoscopic gastrostomy) status (Chronic) Z93.1 Status post insertion of percutaneous endoscopic gastrostomy (PEG) tube Z93.1 port placement History of hernia repair Z98.890, Z87.19 History of thoracentesis Z98.890 LEFT WRIST SURGERY Surgical History: herniorrhaphy, - - PEG tube placement. Psychiatric History: Anxiety Smoking Status: Former smoker - *Family History Paternal Family History: Family History (Last Reviewed 03/12/18 @ 09:24 by Jania Vallejo) Father Heart disease History Items: Heart Disease - Maternal Family History: Family History (Last Reviewed 03/12/18 @ 09:24 by Jania Vallejo) Father Heart disease History Items: No pertinent history Review of Systems Constitutional: Reports: Malaise, Weakness, Fatigue. Denies: Chills, Fever, Weight Change HEENT: Denies: Head Aches, Sinus Congestion, Sinus Drainage Cardiovascular: Denies: Chest Pain, Palpitations Respiratory: Denies: Cough, Shortness of breath at rest, Sputum production Gastrointestinal: Reports: Abdominal Pain, Nausea, Vomiting Genitourinary: Denies: Dysuria Musculoskeletal: Denies: Joint Pain, Joint Tenderness Skin: Denies: Rash, Wounds Neurological: Reports: Difficulty swallowing, Seizures. Denies: Focal weakness, Numbness, Tingling Psychiatric: Reports: Anxiety. Denies: Depression, Homicidal Ideations, Suicidal Ideations Hematologic/ Lymphatic: Denies: Easy Bruising, Easy Bleeding VTE Information - Inpt Only VTE Present on Admission: No VTE Mechan Device Prophylaxis: None VTE Pharm Prophylaxis ordered?: Yes Patient Problems: Active and Suspected Problems (Last Reviewed 03/12/18 @ 09:24 by Jania Vallejo) Weakness (Acute) Seizure (Acute) Brain cancer (Acute) - Physical Exam General: Alert, Oriented x3, Cooperative HEENT: Atraumatic, PERRLA, EOMI, Normocephalic Neck: Supple Lungs: Clear to auscultation, Normal air movement, No rhonchi, No wheeze, No rales Cardiovascular: Regular rate, Regular Rhythm, Normal S1, Normal S2, No murmurs Abdomen: Bowel Sounds Present, Soft, Tender - mild tenderness no guarding Extremities: No edema Skin: No rashes Musculoskeletal: No Tenderness to Palpation of Joints or Extremities Neurological: Neuro grossly intact Psych/Mental Status: Normal Affect, Appropriate Vital Signs Temp Pulse Resp BP Pulse Ox 98.3 F 81 16 135/64 H 97 04/06/18 17:24 04/06/18 20:44 04/06/18 20:44 04/06/18 20:44 04/06/18 20:44 Oxygen Delivery Method Room Air Weight: 129 lb 3.054 oz Body Mass Index (BMI) 19.6 Laboratory Tests Past 24 Hrs Assessment/Plan All Active Problems (Last Reviewed 03/12/18 @ 09:24 by Jania Vallejo) Weakness (Acute) Seizure (Acute) Brain cancer (Acute) Constipation (Acute) Pancytopenia (Acute) Abdominal pain (Acute) Pain (Acute) Chronic Problems (Last Reviewed 03/12/18 @ 09:24 by Jania Vallejo) PEG (percutaneous endoscopic gastrostomy) status (Chronic) Tobacco dependence in remission (Chronic) Pulmonary nodule, left (Chronic) History of laryngeal cancer (Chronic) Non-small cell carcinoma of left lung, stage 3 (Chronic) Dysphagia (Chronic) Chronic anemia (Chronic) Atrial fibrillation and flutter (Chronic) Pleural effusion (Chronic) Chemotherapy management, encounter for (Chronic) Plan - admit to medical surgical floor - consult neurology - IV normal saline at 125cc/hour, zofran 8mg IV q 8hrs prn nausea, Solumedrol 40mg IV q8hrs, and Keppra 500mg IV q 12hrs - MRI brain in am - cbc, bmp in am - morphine 4mg IV q 2 hrs prn pain - miralax 17g in 4 oz water daily via peg - LMWH for DVT prophylaxis Code Visit Inpatient E AND M: [id number] Init Hosp L3 04/06/18 2100 <Electronically signed by Kayode Brennan MD> Date Kayode Brennan MD Cosigner Signature: Date (if applicable) CC: [facility] Alfred Sarmiento; Kayode Brennan MD Signed BASIC METABOLIC Collected: 04/06/2018 Status: F Source: GIANNA PROFILE (BMP) 6:10 PM [facility] REPOSITORY TYPE CODE TESTS RESULT OUT OF RANGE REFERENCE UNITS LAB L501.0100 74-106 mg/dL Normal GLU 82 Result Comment: Please note revised GLUCOSE reference range effective 2017. LAB L501.1000 7-18 mg/dL Normal BUN 16 LAB L501.1100 0.70-1.30 mg/dL Normal CREAT,SERUM 0.94 Result Comment: The validity of the calculated GFR AND GFRAA in patients over 70 years has not been determined. Clinical correlation is essential. LAB L501.1110 >60 mL/min Normal EST GFR 87 Result Comment: Non- GFR Calc LAB L501.1115 >60 mL/min Normal EST GFR - AA 105 Result Comment: GFR Calc LAB L501.1255 ml/min Normal Estimated CRCL 67.54 LAB L501.1300 10-20 RATIO Normal BUN/CRE 17.1 LAB L501.2200 8.5-10 mg/dL Low .1 CA 8.1 LAB L501.5300 136-14 mmol/L Normal 5 NA 136 LAB L501.5600 3.5-5. mmol/L Normal 1 K 3.6 LAB L501.5900 98-107 mmol/L Normal CL 101 LAB L501.6100 21.0-3 mmol/L Normal 2.0 CO2 30.0 LAB L501.6200 5-15 Normal GAP 5 Performed By: #### L500.2500, L500.3400, L501.4010 #### [facility] [address] [place], [place], [address] LIVER PROFILE Collected: 04/06/2018 Status: F Source: BEECHER 6:10 PM [facility] REPOSITORY TYPE CODE TESTS RESULT OUT OF RANGE REFERENCE UNITS LAB L501.1500 6.4-8.2 g/dL Low T PROT 6.1 LAB L501.1800 3.2-5.0 g/dL Low ALB 3.0 LAB L501.1950 2.2-4.2 g/dL Normal GLOB 3.1 LAB L501.4100 15-37 U/L Low AST 12 LAB L501.4305 45-117 U/L Normal ALK P 69 LAB L501.4405 16-61 U/L Low ALT 14 LAB L501.4600 0.20-1.00 mg/dL Normal T BILI 0.40 LAB L501.4700 0.00-0.30 mg/dL Normal D BILI 0.17 Performed By: #### L500.2500, L500.3400, L501.4010 #### [facility] [address] [place], [address] TROPONIN-I Collected: 04/06/2018 Status: F Source: BEECHER 6:10 PM [facility] REPOSITORY TYPE CODE TESTS RESULT OUT OF RANGE REFERENCE UNITS LAB L501.4010 <0.045 ng/mL Normal < 0.015 TROPONIN-I Result Comment: TROPONIN-I EXPECTED VALUES <0.045 Negative 0.045 - 0.590 Consistent with Cardiac Damage > OR = 0.600 Critical Value Not every elevated troponin is indicative of PR. These values should be used with clinical judgement in examining the patient's clinical picture for diagnosis. To establish a diagnosis of PR versus myocardial injury, there must be a demonstrated rise and/or fall in the troponin values, in addition to ischemic symptoms, EKG changes, new regional wall motion abnormality, and/or angiographical evidence. PLEASE NOTE: REFERENCE RANGES EDITED 17 Performed By: #### L500.2500, L500.3400, L501.4010 #### [facility] [place], [address] CBC W/DIFF, AUTOMATED Collected: 04/06/2018 Status: C Source: GIANNA 6:10 PM [facility] REPOSITORY TYPE CODE TESTS RESULT OUT OF RANGE REFERENCE UNITS LAB L100.1000 4.4-11.0 K/mm3 Normal WBC 4.7 LAB L100.1200 4.6-6.2 M/mm3 Low RBC 2.20 LAB L100.1300 13.0-16.5 g/dl Low HGB 7.7 LAB L100.1400 40-54 % Low HCT 24.8 LAB L100.1500 80-94 fL High MCV 112.7 LAB L100.1600 27.0-32.0 pg High MCH 35.0 LAB L100.1700 32-36 g/gl Low MCHC 31.0 LAB L100.1810 11.6-14.6 % High RDW CV 20.4 LAB L100.1820 35.1-43.9 fl High RDW SD 79.4 LAB L100.1900 150-450 K/mm3 Normal PLT 437 LAB L100.2000 6.2-12.0 fl Normal MPV 8.3 LAB L100.2620 2.0-7.7 X10 3/uL Normal Absolute Neut 4.0 Result Comment: AMENDED REPORT 04/06/182115 Absolute Neut previously reported as: 3.6 X10^3/uL LAB L100.2720 0.83-4.51 X10 3/ul Low Absolute Lymph 0.05 Result Comment: AMENDED REPORT 04/06/182117 Absolute Lymph previously reported as: 0.48 L X10^3/ul LAB L100.7300 ANISO 2+ Normal LAB L100.7500 POLYCHROMASIA Normal RARE LAB L100.3100 MANUAL DIFF CELLS COUNTED Normal 100 LAB L100.3200 47-70 % SEGS 67 Normal LAB L100.3300 0-5 % High BAND 18 LAB L100.3400 0-1 % META 1 Normal LAB L100.3800 19-41 % Low LYMPH 1 LAB L100.3900 0-10 % High MONOCYTE 13 LAB L100.9900 PATH REV Normal Reviewed Result Comment: Macrocytic anemia. Clinical correlation necessary. [place] M.D. 04/07/18 AMENDED REPORT 04/07/18 1019 PATH REV previously reported as: September Performed By: #### L100.0100 #### [facility] [address] [facility] [place], [address] PROTHROMBIN TIME W/INR Collected: 04/06/2018 Status: F Source: GIANNA 6:10 PM [facility] REPOSITORY TYPE CODE TESTS RESULT OUT OF RANGE REFERENCE UNITS LAB L300.4150 11.7-14.9 SECONDS Normal PROTIME 14.0 LAB L300.4200 Normal INR 1.1 Performed By: #### L300.3900, L300.4310 #### [facility] [address] [facility] [place], [address] PARTIAL THROMBOPLAST Collected: 04/06/2018 Status: F Source: GIANNA TIME 6:10 PM [facility] REPOSITORY TYPE CODE TESTS RESULT OUT OF REFERENCE UNITS RANGE LAB L300.4310 24.1-36.2 Seconds High PTT 41.6 Performed By: #### L300.3900, L300.4310 #### [facility] [address] [place], [address] ABDOMEN/PELVIS WITHOUT Observed: 04/06/2018 Status: F Source: GIANNA CONT 5:51 PM [facility] REPOSITORY [facility] Imaging Services [address] [place] [address] Abdomen/Pelvis without Cont MR#: [id number] Acct: [id number] Name: MARNITOMY Tai Rep #: [id number] : 1955 62 From: Jeffery Suárez MD PCP: ROYCE Montero Status: REG ER Study: Abdomen/Pelvis without Cont Date of Exam: 04/06/18 Exam# [id number] Ordering Dr: Leah Hdz MD STUDY: CT ABDOMEN AND PELVIS WITHOUT CONTRAST REASON FOR EXAM: Male, 62 years old. Abdominal pain, nausea, weakness RADIATION DOSAGE (If Supplied By Facility): CTDIvol = ( 6.04 ) mGy, DLP = ( 292.95 ) mGycm TECHNIQUE: Transaxial images were obtained from the dome of the diaphragm to the symphysis pubis without oral contrast, and without intravenous contrast. Sagittal and coronal images were reconstructed. Individualized dose optimization techniques were used for this CT. COMPARISON: Prior study of 01/12/2018 FINDINGS: There is left basilar atelectasis. Coronary arterial calcifications are present. There is a trace pericardial effusion. Normal liver. Normal gallbladder and extrahepatic biliary system. There is borderline splenomegaly. Normal pancreas. Normal bilateral adrenal glands. Normal right kidney. There is a 3.2 cm cyst of the lower pole of the left kidney. A PEG tube is noted in the stomach. Normal small intestine. There is a large amount of colonic stool. The appendix is visualized and appears normal. There are calcified plaques of the abdominal aorta and common iliac arteries. Normal inferior vena cava. Normal retroperitoneum. Normal urinary bladder. The prostate, seminal vesicles, and seminal vesicle angles are within normal limits. Normal abdominal wall. There are degenerative changes of the lumbar spine. CT/Abdomen/Pelvis without Cont IMPRESSION: 1. Trace pericardial effusion. This is new in the interval. 2. Borderline splenomegaly. 3. Stable 3.2 cm cyst of the left kidney. 4. A PEG tube is present in the stomach. 5. There is a large amount of colonic stool. 6. There is no evidence of free intra-abdominal or intrapelvic air or fluid. Electronically Signed: Jeffery Suárez MD at 19:54 EST , Service support , CC: ROYCE Sarmiento; Leah Hdz MD [employer] Driver: Signed BRAIN/HEAD W/WO Observed: 04/06/2018 Status: F Source: GIANNA CONTRAST 5:51 PM [facility]IT[facility] [facility] [address] [place] [id number] Brain/Head W/WO Contrast MR#: [id number] Acct: [id number] Name: TOMY MUNSON Rep #: [id number] : 1955 M 62 From: Jeffery Suárez MD PCP: ROYCE Montero Status: REG ER Study: Brain/Head W/WO Contrast Date of Exam: 04/06/18 Exam# [id number] Ordering Dr: Leah Hdz MD ADDENDUM by Jeffery Suárez M.D. on 04/06/18 at 2023 ADDENDUM ADDENDUM: There is an approximately 5.5 mm midline shift toward the left, not 5.5 cm as reported. Electronically Signed: Jeffery Suárez MD at 20:24 EST , Service support , 04/06/182023 Date cc: ROYCE Sarmiento; Leah Hdz MD * Signed ADDENDUM by Jeffery Suárez M.D. on 04/06/[address]/Brain/Head W/WO Contrast 04/06/182030 Date cc: ROYCE Sarmiento; Leah Hdz MD * Signed STUDY: CT BRAIN WITH AND WITHOUT CONTRAST REASON FOR EXAM: Male, 62 years old. Headache, weakness, nausea RADIATION DOSAGE (If Supplied By Facility): CTDIvol = ( 44.99 ) mGy, DLP = ( 1603.47 ) mGycm TECHNIQUE: Transaxial CT imaging of the brain was performed pre and post contrast administration. The examination was performed with intravenous administration of 50ML ml of Isovue 370 contrast material. Individualized dose optimization techniques were used for this CT. COMPARISON: None. FINDINGS: Normal soft tissue structures. Normal calvarium. There are 2 adjacent rim-enhancing lesions of the right occipitoparietal region measuring 2.5 cm and 1.9 cm respectively. There is an additional rim-enhancing right parietal lobe lesion measuring 1.7 cm. There is diffuse right hemispheric white matter edema. There is mild effacement of the right lateral ventricle. There is effacement of right hemispheric cerebral sulci and an approximately 5.5 cm midline shift toward the left. Normal basal ganglia and thalami. Normal brainstem. Normal cerebellum. There is no intracranial hemorrhage. There are no findings of an acute ischemic infarction. There is inspissated secretion in the left maxillary sinus. CT/Brain/Head W/WO Contrast IMPRESSION: Right occipital and parietal lobe rim enhancing lesions with associated white matter edema and midline shift toward the left. Findings are consistent with metastatic disease. There is no evidence of acute infarct or intracranial hemorrhage. Electronically Signed: Jeffery Suárez MD at 20:01 EST , Service support , CC: ROYCE Sarmiento; Leah Hdz MD [employer]: Signed ONCOLOGY VISIT REPORT Observed: 03/12/2018 Status: F Source: [place] 10:00 AM [facility] REPOSITORY [facility] [address] [place] [address] OFFICE VISIT Date of Service: 03/12/18 0954 MR#: [id number] Acct: [id number] Name: TOMY MUNSON Rep #: [id number] : 1955 From: Nino Leigh MD Age/Sex: 62/M Location: OMD Status: Signed Subjective - Date of Service Date of Service:: 03/12/18 - Chief Complaint NSCLC on treatment - History of Present Illness Mr. 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 He was treated with concurrent chemotherapy and Radiation. He received 3 cycles of Cisplatin 100mg/m2 from 07/04/2015-08/09/2015. He had a PET/CT done on 11/30/2015 which showed no hypermetabolic activity. PET/CT on 09/30/2016 demonstrated hypermetabolic activity within the left lower lobe and at the level of the laryngeal structures. Underwent biopsies of larynx on 11/15/16 under the care of Dr. Ascencio, pathology of which were negative. Had CT guided bx of LLL nodule on 01/02/[address] scan of chest on 09/16/2017 showed increasing Left lower lobe mass and new Left hilar mass. He was referred for EBUS + biopsy, it was done on 09/26/2017 and showed squamous cell cancer. MRI brain done on 10/14/2017 was negative for brain metastases. PET/CT on 10/16/2017 shows new hypermetabolic activity in left hemithorax with activity in precarinal area mediastinum, left perihilar area and pleural effusion. He had increase in Pleural fluid, thoracentesis showed no malignant cells. Pleurx cath was placed. He was transferred to [facility] for bronchial stenting but could not be done. He was staged as NSCLC stage IIIB. He started chemotherapy with Carboplatin and Taxol every 28 days on 11/20/2017 and Radiation therapy on 11/24/2017. He was admitted 12/07/17-12/15/17 for sepsis and infected Pleurx catheter which was removed. Required admission 12/24/09 for management of atrial flutter with RVR, discharged home on ASA 81 and cardizem. cycle 2 day 8 Taxol omitted. Received cycle 2 day 15 Taxol on 01/01/18. Finished Radiation therapy on 01/12/2018. Started consolidation chemotherapy on 01/22/2018 with Carboplatin and Taxol, C3D15 Taxol was delayed last week because of neutropenia. Comes in for C4D15 Taxol. - Past Medical/Social History Past Medical History Past Medical History: Anemia Other Past Medical History: Hyponatremia Hypothyroidism Dysphagia Hypernatremia Lymphadenitis Measles Mumps Chicken Pox Cancer: Lung cancer,Oral cancer Other Cancer History: hx of laryngeal ca 2/3/16 treated w/chemo and radiation. Past Surgical History Surgical: Hernia repair Other Surgical History: Left Wrist surgery Peg Tube Family History Paternal Past Medical History: Heart disease Maternal Past Medical History: Unknown Social History Social History: No changes Smoking Status Former smoker Review of Systems Constitutional:: Denies: Fever, Sweats, Weight loss, Appetite change, Chills Cardiovascular:: Denies: Chest pain, Palpitations, Dyspnea on exertion, Orthopnea, PND, Shortness of breath Respiratory: Denies: Cough, Hemoptysis, Shortness of Breath, Wheezing Gastrointestinal:: Denies: Abdominal pain, Nausea, Vomiting, Diarrhea, Constipation, Hematochezia Genitourinary: Denies: Dysuria, Hematuria, 15, Flank pain Musculoskeletal:: Denies: Back pain, Myalgia, Arthralgia Skin: Denies: Rash, Skin Changes, Wounds Neurological:: Denies: Headache, Dizziness, Visual changes, Tinnitus, Hearing loss Psychiatric: Denies: Anxiety, Depression, Homicidal Ideations, Suicidal Ideations Vital Signs Height 5 ft 7 in Weight: 58.06 kg Weight in Pounds 128.0 lbs BMI 20.7 Pulse Ox 96 - Physical Exam General: Alert, Oriented x3, No apparent distress, - - port L IC. HEENT: Atraumatic, PERRLA, EOMI, Normocephalic Oropharynx:: Dry mucosa Neck:: Supple, Trachea midline. Negative for: JVD, bilateral Cardiac:: Regular rate, Regular rhythm, Normal S1, Normal S2. Negative for: Murmur Lungs: Clear to auscultation, Excusion symmetrical. Negative for: Rhonchi, Wheezes Neurological: Neuro grossly intact Lymphatics:: Negative for: Cervical lymphadenopathy, Supraclavicular lymphadenopathy, Axillary lymphadenopathy Laboratory Data: Laboratory Tests WBC 1.6 L (4.4-11.0) K/mm3 RBC 2.21 L (4.6-6.2) M/mm3 Hgb 7.6 L (13.0-16.5) g/dl Assessment and Plan Non small cell lung cancer, squamous cell type, T4 N2 M0-stage IIIB, Pleural fluid is negative for malignant cells. Has finished Carboplatin and Taxol with Radiation. Now on consolidation chemotherapy with Carboplatin and Taxol, due for C4 D15 Taxol. History of Laryngeal CA stage TAWNY, S/P Chemoradiation therapy. Counts are OK for therapy. PEG tube for feeding. Plan is to proceed with C4D15 Taxol today. Continue Percocet, use Miralax for constipation prophylaxis. Return to clinic 4 wks with CBC/CMP/TSH. Medications: Prescriptions This Visit Medication Instructions Recorded Albuterol IH (ProAir) [Proair Hfa] 2 puff INHALATION Q6H PRN #1 12/18/17 Primary Care Provider: ROYCE Montero Referring Provider: - Problem List (1) History of laryngeal cancer Status: Chronic (2) Non-small cell carcinoma of left lung, stage 3 Status: Chronic (3) Chemotherapy management, encounter for Status: Chronic Code Visit Office Visits / Consults: [id number] OV L5 Est 03/12/18 1000 <Electronically signed by Nino Leigh MD> Date Nino Leigh MD Cosigner Signature: Date (if applicable) CC: CBC W/DIFF, AUTOMATED Collected: 03/12/2018 Status: F Source: [place]IANNA 9:04 AM [facility] REPOSITORY TYPE CODE TESTS RESULT OUT OF RANGE REFERENCE UNITS LAB L100.1000 4.4-11.0 K/mm3 Low WBC 1.6 LAB L100.1200 4.6-6.2 M/mm3 Low RBC 2.21 LAB L100.1300 13.0-16.5 g/dl Low HGB 7.6 LAB L100.1400 40-54 % Low HCT 23.9 LAB L100.1500 80-94 fL High MCV 108.1 LAB L100.1600 27.0-32.0 pg High MCH 34.4 LAB L100.1700 32-36 g/gl Low MCHC 31.8 LAB L100.1810 11.6-14.6 % High RDW CV 21.6 LAB L100.1820 35.1-43.9 fl High RDW SD 83.4 LAB L100.1900 150-450 K/mm3 Normal PLT 195 LAB L100.2000 6.2-12.0 fl Normal MPV 9.3 LAB L100.2100 47-70 % High NEUT% 71.3 LAB L100.2200 19-41 % Normal LY% 20.0 LAB L100.2300 0-10 % Normal MONO% 7.5 LAB L100.2400 0-5 % Normal EO% 0.6 LAB L100.2500 0-1 % Normal BASO% 0.6 LAB L100.2550 0.0-0.9 % Normal IM GRAN % 0.000 Result Comment: IG% - Immature Granulocytes (promyelocytes, myelocytes and metamyelocytes) > 1% indicates that a LEFT SHIFT is Present. LAB L100.2620 2.0-7.7 X10 3/uL Low Absolute Neut 1.1 LAB L100.2720 0.83-4.51 X10 3/ul Low Absolute Lymph 0.32 LAB L100.5500 ADEQ PLT EST Normal ADEQUATE LAB L100.7300 ANISO Normal 2+ LAB L100.7500 POLYCHROMASIA Normal 1+ LAB L100.7600 HYPOCHROMASIA Normal 3+ LAB L100.7800 MACROCYTE Normal 1+ LAB L100.8400 SCHISTOCYTES Normal RARE Performed By: #### L100.0100, L500.4050, L501.5200 #### [facility] [address] [place], [address] COMPREHENSIVE METABOLIC Collected: 03/12/2018 Status: F Source: [facility] 9:04 AM [facility] REPOSITORY Order Comment: Reason for Laboratory Test Chemotherapy TYPE CODE TESTS RESULT OUT OF RANGE REFERENCE UNITS LAB L501.0100 74-106 mg/dL High GLU 124 Result Comment: Fasting Glucose result from 100 to 125 mg/dL suggests IMPAIRED HOMEOSTASIS per A.D.A. criteria. Please note revised GLUCOSE reference range effective 2017. LAB L501.1000 7-18 mg/dL High BUN 22 LAB L501.1100 0.70-1.30 mg/dL Normal CREAT,SERUM 1.03 Result Comment: The validity of the calculated GFR AND GFRAA in patients over 70 years has not been determined. Clinical correlation is essential. LAB L501.1110 >60 mL/min Normal EST GFR 78 Result Comment: Non- GFR Calc LAB L501.1115 >60 mL/min Normal EST GFR - AA 94 Result Comment: GFR Calc LAB L501.1255 ml/min Normal Estimated CRCL 61.07 LAB L501.1300 10-20 RATIO High BUN/CRE 21.4 LAB L501.1500 6.4-8. g/dL Normal 2 T PROT 7.0 LAB L501.1800 3.2-5. g/dL Normal 0 ALB 3.5 LAB L501.1950 2.2-4. g/dL Normal 2 GLOB 3.5 LAB L501.2000 0.9-2. RATIO Normal 4 A/G 1.0 LAB L501.2200 8.5-10 mg/dL Normal .1 CA 8.9 LAB L501.4100 15-37 U/L Normal AST 18 LAB L501.4305 45-117 U/L Normal ALK P 89 LAB L501.4405 16-61 U/L Normal ALT 19 LAB L501.4600 0.20-1 mg/dL Normal .00 T BILI 0.30 LAB L501.5300 136-14 mmol/L Normal 5 NA 137 LAB L501.5600 3.5-5. mmol/L Normal 1 K 3.9 LAB L501.5900 98-107 mmol/L Normal CL 100 LAB L501.6100 21.0-3 mmol/L Normal 2.0 CO2 32.0 LAB L501.6200 5-15 Normal GAP 5 Performed By: #### L100.0100, L500.4050, L501.5200 #### [facility] [address] [place], [place], [address] MAGNESIUM Collected: 03/12/2018 Status: F Source: [place] 9:04 AM [facility] REPOSITORY Order Comment: Reason for Laboratory Test Chemotherapy TYPE CODE TESTS RESULT OUT OF RANGE REFERENCE UNITS LAB L501.5200 1.6-2.6 mg/dL Normal MG 1.8 Performed By: #### L100.0100, L500.4050, L501.5200 #### [facility] [address] [place], [address] CBC W/DIFF, AUTOMATED Collected: 03/05/2018 Status: F Source: [place] 8:59 AM [facility] REPOSITORY TYPE CODE TESTS RESULT OUT OF RANGE REFERENCE UNITS LAB L100.1000 4.4-11.0 K/mm3 Low WBC 3.1 LAB L100.1200 4.6-6.2 M/mm3 Low RBC 2.36 LAB L100.1300 13.0-16.5 g/dl Low HGB 7.8 LAB L100.1400 40-54 % Low HCT 24.7 LAB L100.1500 80-94 fL High MCV 104.7 LAB L100.1600 27.0-32.0 pg High MCH 33.1 LAB L100.1700 32-36 g/gl Low MCHC 31.6 LAB L100.1810 11.6-14.6 % High RDW CV 21.6 LAB L100.1820 35.1-43.9 fl High RDW SD 81.6 LAB L100.1900 150-450 K/mm3 Normal PLT 328 LAB L100.2000 6.2-12.0 fl Normal MPV 8.8 LAB L100.2100 47-70 % High NEUT% 83.9 LAB L100.2200 19-41 % Low LY% 9.0 LAB L100.2300 0-10 % Normal MONO% 5.2 LAB L100.2400 0-5 % Normal EO% 1.0 LAB L100.2500 0-1 % Normal BASO% 0.6 LAB L100.2550 0.0-0.9 % Normal IM GRAN % 0.300 Result Comment: IG% - Immature Granulocytes (promyelocytes, myelocytes and metamyelocytes) > 1% indicates that a LEFT SHIFT is Present. LAB L100.2620 2.0-7.7 X10 3/uL Normal Absolute Neut 2.6 LAB L100.2720 0.83-4.51 X10 3/ul Low Absolute Lymph 0.28 LAB L100.4500 Normal SMEAR COMMENT SCANNED Performed By: #### L100.0100 #### [facility] [address] [place], [address] COMPREHENSIVE METABOLIC Collected: 03/05/2018 Status: F Source: GIANNA ANDREWS 8:59 AM [facility] REPOSITORY Order Comment: Reason for Laboratory Test Chemotherapy TYPE CODE TESTS RESULT OUT OF RANGE REFERENCE UNITS LAB L501.0100 74-106 mg/dL High GLU 113 Result Comment: Fasting Glucose result from 100 to 125 mg/dL suggests IMPAIRED HOMEOSTASIS per A.D.A. criteria. Please note revised GLUCOSE reference range effective 2017. LAB L501.1000 7-18 mg/dL High BUN 26 LAB L501.1100 0.70-1.30 mg/dL Normal CREAT,SERUM 1.17 Result Comment: The validity of the calculated GFR AND GFRAA in patients over 70 years has not been determined. Clinical correlation is essential. LAB L501.1110 >60 mL/min Normal EST GFR 67 Result Comment: Non- GFR Calc LAB L501.1115 >60 mL/min Normal EST GFR - AA 81 Result Comment: GFR Calc LAB L501.1255 ml/min Normal Estimated CRCL 52.58 LAB L501.1300 10-20 RATIO High BUN/CRE 22.2 LAB L501.1500 6.4-8. g/dL Normal 2 T PROT 7.1 LAB L501.1800 3.2-5. g/dL Normal 0 ALB 3.5 LAB L501.1950 2.2-4. g/dL Normal 2 GLOB 3.6 LAB L501.2000 0.9-2. RATIO Normal 4 A/G 1.0 LAB L501.2200 8.5-10 mg/dL Normal .1 CA 9.0 LAB L501.4100 15-37 U/L Normal AST 22 LAB L501.4305 45-117 U/L Normal ALK P 86 LAB L501.4405 16-61 U/L Normal ALT 22 LAB L501.4600 0.20-1 mg/dL Normal .00 T BILI 0.30 LAB L501.5300 136-14 mmol/L Low 5 NA 133 LAB L501.5600 3.5-5. mmol/L Normal 1 K 4.1 LAB L501.5900 98-107 mmol/L Low CL 96 LAB L501.6100 21.0-3 mmol/L Normal 2.0 CO2 31.0 LAB L501.6200 5-15 Normal GAP 6 Performed By: #### L500.4050, L501.5200 #### [facility] [address] [place], [address] MAGNESIUM Collected: 03/05/2018 Status: F Source: [place] 8:59 AM [facility] REPOSITORY Order Comment: Reason for Laboratory Test Chemotherapy TYPE CODE TESTS RESULT OUT OF RANGE REFERENCE UNITS LAB L501.5200 1.6-2.6 mg/dL Normal MG 1.7 Performed By: #### L500.4050, L501.5200 #### [facility] [address] [place], [address] PROGRESS Observed: 03/04/2018 Status: COMPLETED Source: SELMA 4:[address] [facility] REPOSITORY HNO ID: [id number] Author: Ivy Jean Service: (none) Author Type: Physician Type: Progress Notes Filed: 03/06/2018 3:33 PM Note Text: Tomy Munson 1955 REFERRING PHYSICIAN: Marisol Segura RN CHIEF COMPLAINT: Gastrostomy tube irritation HPI: Tomy is a 62 y/o WM who has gastrostomy tube in place. States that he rubbed against it accidentally and noted red area at the opening and was concerned. Also notes hard stools of the abdomen (points to area of transverse colon) and is concerned about this. 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 pilocarpine (SALAGEN) 5 mg tablet Take 5 mg by mouth three times daily. ALLERGIES: Review of patient's allergies indicates no known allergies. PERSONAL HISTORY: Social History Marital Status: Single Social History Main Topics Extensive TOB and ETOH abuse - but quit with diagnosis of cancer REVIEW OF SYSTEMS: General - denies fevers, weight down with treatment for cancer - stable at present Cardiovascular - denies chest pain, denies history of heart attack Pulmonary - has shortness of breath with exertion, denies coughing up blood at present Gastrointestinal - complaint of severe dry mouth, swallowing difficulties due to post radiation changes requiring dilatation, has throat narrowing due to radiation therapy Neurological - denies numbness/weakness of extremities, denies seizures, denies history of stroke Genitourinary - denies blood in urine, denies burning with urination Hematological - denies spontaneous/prolonged bleeding, denies history of blood transfusions, denies history of deep venous thromboses and/or pulmonary emboli Skin - denies nonhealing skin wounds Musculoskeletal - denies history of fractures Endocrine - denies diabetes Psychological ? denies hallucinations PHYSICAL EXAMINATION: General: The patient is 60 year old male, cachetic appearing. The patient is oriented to time, place, and person. VITALS: Blood pressure 120/62, pulse 72, resp. rate 16. Head ? Normocephalic. EOM intact with sclera clear and no icterus noted. Mouth with mucus membranes tacky Neck - supple with no jugular venous distention noted. Trachea is midline. Lungs ? no labored breathing noted, such as retractions. No cough heard. Abdomen ? soft and benign. Gastrostomy tube in place with surrounding granulation tissue at the site - no evidence of infection, normal bowel sounds. Skin ? normal skin integrity. Psych ? calm and appropriate IMPRESSION: Supraglottic laryngeal cancer - metastatic, gastrostomy tube in place PLAN: I have discussed the above with the patient. Area of granulation tissue treated with silver nitrate, continue use of gastrostomy tube. Return to Clinic: The patient is instructed to follow-up with me as per needed. Ivy Jean MD CNOV Observed: 03/04/2018 Status: COMPLETED Source: [place] 2:30 PM [facility] REPOSITORY Office Visit (SWS) TOMY MUNSON ([id number]) 1955 M Date Time Provider Department 03/04/18 2:30 PM IVY JEAN During your visit today, we recorded the following information about you: Pulse Blood pressure Weight 96/minute 108/58 58.1 kg Gwen Tatum LPN 03/04/2018 3:00 PM Signed REVIEW OF SYSTEMS: General: The patient denies fatigue, NOTES weight loss, NOTES weight gain, denies feeling hot, and denies feelings of cold. Eyes: The patient denies glaucoma, denies eye injury/surgery, wears glasses or contacts. Ear/Nose/Throat: The patient denies allergies, denies hayfever, denies ear infections, and denies bloody noses. Cardiovascular: The patient denies chest pain, denies heart disease, denies high blood pressure,denies cardiac stent, denies prior heart attack, denies irregular heart beat, denies high cholesterol, denies poor circulation, denies heart failure, other cardiac issues, denies claudication, denies cold feet, denies peripheral arterial stent. Respiratory: The patient denies tuberculosis, denies pneumonia, denies frequent cough, denies pulmonary embolism, denies shortness of breath, and denies coughing up blood. Gastrointestinal: The patient NOTES difficulty swallowing, NOTES acid reflux, denies ulcers, denies vomiting, denies jaundice/hepatitis, denies gallbladder problems, denies black or tarry stools, denies hemorrhoids, denies bleeding from rectum, denies diverticulitis, NOTES constipation, denies diarrhea, denies loss of stool control, and denies hernias. Kidney/Bladder: The patient denies kidney stones, denies urine infections, and denies bloody urine. Skin: The patient denies a history of skin cancer, denies bleeding/changing moles, and denies a history of skin rash. Neurologic: The patient denies a history of epilepsy/convulsions, denies headaches, denies head/spinal injuries, and denies stroke/TIA. Psychiatric: The patient denies psychiatric medications, denies depression, and denies voices, denies substance abuse. Endocrine: The patient NOTES thyroid disorders, denies diabetes, and denies hormonal problems. Hematologic: The patient denies a history of bruising, denies bleeding, and denies anemia, denies blood clots. Infections: The patient denies a history of measles and mumps, denies rheumatic fever, and denies sexually transmitted diseases. Musculoskeletal: The patient denies back pain/injury, denies back problems, denies sciatica, denies knee/foot trouble, NOTES arthritis, or denies gout. When was patient's last Mammogram screening? N/A Last Colonoscopy: none Gwen Jean MD 03/06/2018 3:33 PM Signed Tomy Munson 1955 REFERRING PHYSICIAN: Marisol Segura RN CHIEF COMPLAINT: Gastrostomy tube irritation HPI: Tomy is a 62 y/o WM who has gastrostomy tube in place. States that he rubbed against it accidentally and noted red area at the opening and was concerned. Also notes hard stools of the abdomen (points to area of transverse colon) and is concerned about this. 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 pilocarpine (SALAGEN) 5 mg tablet Take 5 mg by mouth three times daily. ALLERGIES: Review of patient's allergies indicates no known allergies. PERSONAL HISTORY: Social History Marital Status: Single Social History Main Topics Extensive TOB and ETOH abuse - but quit with diagnosis of cancer REVIEW OF SYSTEMS: General - denies fevers, weight down with treatment for cancer - stable at present Cardiovascular - denies chest pain, denies history of heart attack Pulmonary - has shortness of breath with exertion, denies coughing up blood at present Gastrointestinal - complaint of severe dry mouth, swallowing difficulties due to post radiation changes requiring dilatation, has throat narrowing due to radiation therapy Neurological - denies numbness/weakness of extremities, denies seizures, denies history of stroke Genitourinary - denies blood in urine, denies burning with urination Hematological - denies spontaneous/prolonged bleeding, denies history of blood transfusions, denies history of deep venous thromboses and/or pulmonary emboli Skin - denies nonhealing skin wounds Musculoskeletal - denies history of fractures Endocrine - denies diabetes Psychological ? denies hallucinations PHYSICAL EXAMINATION: General: The patient is 60 year old male, cachetic appearing. The patient is oriented to time, place, and person. VITALS: Blood pressure 120/62, pulse 72, resp. rate 16. Head ? Normocephalic. EOM intact with sclera clear and no icterus noted. Mouth with mucus membranes tacky Neck - supple with no jugular venous distention noted. Trachea is midline. Lungs ? no labored breathing noted, such as retractions. No cough heard. Abdomen ? soft and benign. Gastrostomy tube in place with surrounding granulation tissue at the site - no evidence of infection, normal bowel sounds. Skin ? normal skin integrity. Psych ? calm and appropriate IMPRESSION: Supraglottic laryngeal cancer - metastatic, gastrostomy tube in place PLAN: I have discussed the above with the patient. Area of granulation tissue treated with silver nitrate, continue use of gastrostomy tube. Return to Clinic: The patient is instructed to follow-up with me as per needed. Ivy Jean MD Referring Provider: SELF [[id number]] Allergies As of Date: 03/04/2018 (No Known Allergies) Date Reviewed: 03/04/2018 Reviewed by: Meggan Richard RN - Fully Assessed Reason for Visit: Consult [173] Cmt: PEG tube Primary Visit Diagnosis:Gastrostomy tube skin breakdown (HCC) [K94.29] Prescriptions as of 03/04/2018 Sig: FERROUS SULFATE 325 MG (65 MG* Take 65 mg by mouth once charbel* CLONAZEPAM 0.5 MG TABLET LEVOTHYROXINE 50 MCG TABLET 1 tablet once daily. DEXAMETHASONE 4 MG TABLET DAILY@0800 OMEPRAZOLE 20 MG CAPSULE,VINI* OXYCODONE-ACETAMINOPHEN 5 MG-* ALBUTEROL SULFATE 2.5 MG/3 ML* 2.5 mg. PROAIR HFA 90 MCG/ACTUATION A* PILOCARPINE 5 MG TABLET Take 5 mg by mouth three time* Problem List As Of Date: 03/04/2018 (None) Visit Notes: >> Gwen Tatum LPN FriMar 04, 2018 2:59 PM Status: Signed REVIEW OF SYSTEMS: General: The patient denies fatigue, NOTES weight loss, NOTES weight gain, denies feeling hot, and denies feelings of cold. Eyes: The patient denies glaucoma, denies eye injury/surgery, wears glasses or contacts. Ear/Nose/Throat: The patient denies allergies, denies hayfever, denies ear infections, and denies bloody noses. Cardiovascular: The patient denies chest pain, denies heart disease, denies high blood pressure,denies cardiac stent, denies prior heart attack, denies irregular heart beat, denies high cholesterol, denies poor circulation, denies heart failure, other cardiac issues, denies claudication, denies cold feet, denies peripheral arterial stent. Respiratory: The patient denies tuberculosis, denies pneumonia, denies frequent cough, denies pulmonary embolism, denies shortness of breath, and denies coughing up blood. Gastrointestinal: The patient NOTES difficulty swallowing, NOTES acid reflux, denies ulcers, denies vomiting, denies jaundice/hepatitis, denies gallbladder problems, denies black or tarry stools, denies hemorrhoids, denies bleeding from rectum, denies diverticulitis, NOTES constipation, denies diarrhea, denies loss of stool control, and denies hernias. Kidney/Bladder: The patient denies kidney stones, denies urine infections, and denies bloody urine. Skin: The patient denies a history of skin cancer, denies bleeding/changing moles, and denies a history of skin rash. Neurologic: The patient denies a history of epilepsy/convulsions, denies headaches, denies head/spinal injuries, and denies stroke/TIA. Psychiatric: The patient denies psychiatric medications, denies depression, and denies voices, denies substance abuse. Endocrine: The patient NOTES thyroid disorders, denies diabetes, and denies hormonal problems. Hematologic: The patient denies a history of bruising, denies bleeding, and denies anemia, denies blood clots. Infections: The patient denies a history of measles and mumps, denies rheumatic fever, and denies sexually transmitted diseases. Musculoskeletal: The patient denies back pain/injury, denies back problems, denies sciatica, denies knee/foot trouble, NOTES arthritis, or denies gout. When was patient's last Mammogram screening? N/A Last Colonoscopy: none Gwen Tatum LPN Medications Discontinued During This Encounter LORazepam (ATIVAN) 0.5 mg tab 11/10/2017 03/04/2018 Class: Historical Med Route: ORAL Sig: Take 0.5 mg by mouth as needed. Disc: Erroneous entry Encounter Status:Closed by MD IVY JEAN on 03/06/18 IRON+IRON BINDING Collected: 02/26/2018 Status: F Source: GIANNA CAPACITY 10:18 AM [facility] REPOSITORY Order Comment: BLOOD IN LAB Reason for Laboratory Test . TYPE CODE TESTS RESULT OUT OF RANGE REFERENCE UNITS LAB L503.6075 250-450 ug/dL TIBC Normal 250 LAB L503.6150 65-175 ug/dL Low IRON 30 LAB L503.6250 15.0-55.0 % Low IRON SATURATION 12.0 Performed By: #### L503.6030, L503.6550 #### [facility] [address] [place], [address] FERRITIN Collected: 02/26/2018 Status: F Source: [place] 10:18 AM [facility] REPOSITORY Order Comment: BLOOD IN LAB Reason for Laboratory Test . TYPE CODE TESTS RESULT OUT OF REFERENCE UNITS RANGE LAB L503.6550 26-388 ng/mL High FERRITIN 1079 Performed By: #### L503.6030, L503.6550 #### [facility] [address] [place], [address] ONCOLOGY VISIT REPORT Observed: 02/26/2018 Status: F Source: [place] 10:02 AM [facility] REPOSITORY [facility] [address] [place] [address] OFFICE VISIT Date of Service: 02/26/18 0951 MR#: [id number] Acct: [id number] Name: TOMY MUNSON Rep #: [id number] : 1955 From: Nino Leigh MD Age/Sex: 62/M Location: OMD Status: Signed Subjective - Date of Service Date of Service:: 02/26/18 - Chief Complaint NSCLC on treatment - History of Present Illness Mr. 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 He was treated with concurrent chemotherapy and Radiation. He received 3 cycles of Cisplatin 100mg/m2 from 07/04/2015-08/09/2015. He had a PET/CT done on 11/30/2015 which showed no hypermetabolic activity. PET/CT on 09/30/2016 demonstrated hypermetabolic activity within the left lower lobe and at the level of the laryngeal structures. Underwent biopsies of larynx on 11/15/16 under the care of Dr. Ascencio, pathology of which were negative. Had CT guided bx of LLL nodule on 01/02/[address] scan of chest on 09/16/2017 showed increasing Left lower lobe mass and new Left hilar mass. He was referred for EBUS + biopsy, it was done on 09/26/2017 and showed squamous cell cancer. MRI brain done on 10/14/2017 was negative for brain metastases. PET/CT on 10/16/2017 shows new hypermetabolic activity in left hemithorax with activity in precarinal area mediastinum, left perihilar area and pleural effusion. He had increase in Pleural fluid, thoracentesis showed no malignant cells. Pleurx cath was placed. He was transferred to [facility] for bronchial stenting but could not be done. He was staged as NSCLC stage IIIB. He started chemotherapy with Carboplatin and Taxol every 28 days on 11/20/2017 and Radiation therapy on 11/24/2017. He was admitted 12/07/17-12/15/17 for sepsis and infected Pleurx catheter which was removed. Required admission 12/24/09 for management of atrial flutter with RVR, discharged home on ASA 81 and cardizem. cycle 2 day 8 Taxol omitted. Received cycle 2 day 15 Taxol on 01/01/18. Finished Radiation therapy on 01/12/2018. Started consolidation chemotherapy on 01/22/2018 with Carboplatin and Taxol, C3D15 Taxol was delayed last week because of neutropenia. Comes in for C4. - Past Medical/Social History Past Medical History Past Medical History: Anemia Other Past Medical History: Hyponatremia Hypothyroidism Dysphagia Hypernatremia Lymphadenitis Measles Mumps Chicken Pox Cancer: Lung cancer,Oral cancer Other Cancer History: hx of laryngeal ca 06/21/15 treated w/chemo and radiation. Past Surgical History Surgical: Hernia repair Other Surgical History: Left Wrist surgery Peg Tube Family History Paternal Past Medical History: Heart disease Maternal Past Medical History: Unknown Social History Social History: No changes Smoking Status Former smoker Review of Systems Constitutional:: Denies: Fever, Sweats, Weight loss, Appetite change, Chills Cardiovascular:: Denies: Chest pain, Palpitations, Dyspnea on exertion, Orthopnea, PND, Shortness of breath Respiratory: Denies: Cough, Hemoptysis, Shortness of Breath, Wheezing Gastrointestinal:: Reports: - - still using PEG tube. Genitourinary: Denies: Dysuria, Hematuria, 15, Flank pain Musculoskeletal:: Denies: Back pain, Myalgia, Arthralgia Skin: Denies: Rash, Skin Changes, Wounds Neurological:: Denies: Headache, Dizziness, Visual changes, Tinnitus, Hearing loss Vital Signs Height 5 ft 7 in Weight: 56.79 kg Weight in Pounds 125.2 lbs BMI 20.7 Pulse Ox 96 - Physical Exam General: Alert, Oriented x3, No apparent distress, - - + Port L IC area. HEENT: Atraumatic, PERRLA, EOMI, Normocephalic Oropharynx:: - - edentulous Neck:: Supple, Trachea midline. Negative for: JVD, bilateral Cardiac:: Regular rate, Regular rhythm, Normal S1, Normal S2. Negative for: Murmur Lungs: Clear to auscultation, Excusion symmetrical. Negative for: Rhonchi, Wheezes Abdomen:: Bowel sounds x 4, Soft, Non-tender, Non-distended, - - + PEG tube. Negative for: Hepatosplenomegaly Extremities:: Negative for: Cyanosis, Edema Neurological: Neuro grossly intact Skin:: Negative for: Lesions, Rash, Petechiae, Ecchymosis Lymphatics:: Negative for: Cervical lymphadenopathy, Supraclavicular lymphadenopathy, Axillary lymphadenopathy Laboratory Data: Laboratory Tests WBC 3.0 L (4.4-11.0) K/mm3 RBC 2.31 L (4.6-6.2) M/mm3 Assessment and Plan Non small cell lung cancer, squamous cell type, T4 N2 M0-stage IIIB, Pleural fluid is negative for malignant cells. Has finished Carboplatin and Taxol with Radiation. Now on consolidation chemotherapy with Carboplatin and Taxol, for C4. History of Laryngeal CA stage TAWNY, S/P Chemoradiation therapy. Counts are OK for therapy. PEG tube for feeding. Plan is to proceed with C4D1 Carboplatin and Taxol today, D8 Taxol next week. Continue Percocet, use Miralax for constipation prophylaxis. Surgery consult-Dr. Jean for PEG tube. Return to clinic 2 wks with CBC/CMP for C4D15 Taxol. Medications: Prescriptions This Visit Medication Instructions Recorded Albuterol IH (ProAir) [Proair Hfa] 2 puff INHALATION Q6H PRN #1 12/18/17 Primary Care Provider: ROYCE Montero Referring Provider: - Problem List (1) History of laryngeal cancer Status: Chronic (2) Non-small cell carcinoma of left lung, stage 3 Status: Chronic (3) Chemotherapy management, encounter for Status: Chronic Code Visit Office Visits / Consults: [id number] OV L5 Est 02/26/18 1002 <Electronically signed by Nino Leigh MD> Date Nino Leigh MD Cosigner Signature: Date (if applicable) CC: CBC W/DIFF, AUTOMATED Collected: 02/26/2018 Status: F Source: GIANNA 9:00 AM [facility] REPOSITORY TYPE CODE TESTS RESULT OUT OF RANGE REFERENCE UNITS LAB L100.1000 4.4-11.0 K/mm3 Low WBC 3.0 LAB L100.1200 4.6-6.2 M/mm3 Low RBC 2.31 LAB L100.1300 13.0-16.5 g/dl Low HGB 7.7 LAB L100.1400 40-54 % Low HCT 24.6 LAB L100.1500 80-94 fL High MCV 106.5 LAB L100.1600 27.0-32.0 pg High MCH 33.3 LAB L100.1700 32-36 g/gl Low MCHC 31.3 LAB L100.1810 11.6-14.6 % High RDW CV 24.0 LAB L100.1820 35.1-43.9 fl High RDW SD 92.5 LAB L100.1900 150-450 K/mm3 Normal PLT 382 LAB L100.2000 6.2-12.0 fl Normal MPV 8.6 LAB L100.2100 47-70 % Normal NEUT% 65.0 LAB L100.2200 19-41 % Normal LY% 19.7 LAB L100.2300 0-10 % High MONO% 13.3 LAB L100.2400 0-5 % Normal EO% 1.7 LAB L100.2500 0-1 % Normal BASO% 0.3 LAB L100.2550 0.0-0.9 % Normal IM GRAN % 0.000 Result Comment: IG% - Immature Granulocytes (promyelocytes, myelocytes and metamyelocytes) > 1% indicates that a LEFT SHIFT is Present. LAB L100.2620 2.0-7.7 X10 3/uL Normal Absolute Neut 2.0 LAB L100.2720 0.83-4.51 X10 3/ul Low Absolute Lymph 0.59 Performed By: #### L100.0100 #### [facility] [address] [place], [address] COMPREHENSIVE METABOLIC Collected: 02/26/2018 Status: F Source: [facility] 9:00 AM [facility] REPOSITORY Order Comment: Reason for Laboratory Test Chemotherapy TYPE CODE TESTS RESULT OUT OF RANGE REFERENCE UNITS LAB L501.0100 74-106 mg/dL High GLU 119 Result Comment: Fasting Glucose result from 100 to 125 mg/dL suggests IMPAIRED HOMEOSTASIS per A.D.A. criteria. Please note revised GLUCOSE reference range effective 2017. LAB L501.1000 7-18 mg/dL High BUN 21 LAB L501.1100 0.70-1.30 mg/dL High CREAT,SERUM 1.31 Result Comment: The validity of the calculated GFR AND GFRAA in patients over 70 years has not been determined. Clinical correlation is essential. LAB L501.1110 >60 mL/min Low EST GFR 59 Result Comment: Non- GFR Calc LAB L501.1115 >60 mL/min Normal EST GFR - AA 71 Result Comment: GFR Calc LAB L501.1255 ml/min Normal Estimated CRCL 46.96 LAB L501.1300 10-20 RATIO Normal BUN/CRE 16.0 LAB L501.1500 6.4-8. g/dL Normal 2 T PROT 6.9 LAB L501.1800 3.2-5. g/dL Normal 0 ALB 3.4 LAB L501.1950 2.2-4. g/dL Normal 2 GLOB 3.5 LAB L501.2000 0.9-2. RATIO Normal 4 A/G 1.0 LAB L501.2200 8.5-10 mg/dL Normal .1 CA 9.1 LAB L501.4100 15-37 U/L Normal AST 16 LAB L501.4305 45-117 U/L Normal ALK P 91 LAB L501.4405 16-61 U/L Normal ALT 20 LAB L501.4600 0.20-1 mg/dL Normal .00 T BILI 0.40 LAB L501.5300 136-14 mmol/L Low 5 NA 135 LAB L501.5600 3.5-5. mmol/L Normal 1 K 4.0 LAB L501.5900 98-107 mmol/L Low CL 95 LAB L501.6100 21.0-3 mmol/L Normal 2.0 CO2 31.0 LAB L501.6200 5-15 Normal GAP 9 Performed By: #### L500.4050, L501.5200 #### [facility] [address] [place], [address] MAGNESIUM Collected: 02/26/2018 Status: F Source: [place] 9:00 AM [facility] REPOSITORY Order Comment: Reason for Laboratory Test Chemotherapy TYPE CODE TESTS RESULT OUT OF RANGE REFERENCE UNITS LAB L501.5200 1.6-2.6 mg/dL Normal MG 2.1 Performed By: #### L500.4050, L501.5200 #### [facility] [address] [place], [address] ONCOLOGY FOLLOW-UP Observed: 02/12/2018 Status: F Source: [place]EE[place]ER VISIT 10:43 AM [facility] REPOSITORY [facility] Medical Records Department [address] [place] [address] Oncology Follow-Up Visit 02/12/18 1033 MR#: [id number] Acct: [id number] Name: TOMY MUNSON Rep #: [id number] : 1955 62 From: Vish Crespo DO PCP: ROYCE Montero Status: REG RCR Y Location: ONC Date of Service: 02/12/18 Diagnosis: Tomy Munson is a 61-year-old male previously treated for 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 Unfortunately due to treatment delays the lung cancer appears to have progressed and caused complete collapse of the left lung romeo and interventional pulmonology was unable to place stent. From 11/25/17 - 01/12/18: Patient received definitive chemoradiation therapy to the left lung and hilar disease consisting of 6000 cGy in 30 fractions. History of Present Illness: 06/19/2015: Patient underwent direct laryngoscopy with biopsy of the supraglottic mass which demonstrated invasive moderately differentiated squamous cell carcinoma (p16 negative). 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 From 07/04/15-08/25/15 he received 7104 cGy in 36 fractions. Chemotherapy was given from 07/04/2015 through 08/09/2015 and consisted of 3 cycles of 100 mg/m cisplatin. 12/23/2016: CT chest with contrast was performed which demonstrated a 1.5 x 1.4 cm noncalcified nodule in the peripheral aspect of the superior segment of the left lower lobe as well as a 5.3 mm noncalcified nodule in the posterior medial segment of the left lower lobe. 01/02/2017: Patient underwent CT-guided biopsy of the left lower lung mass which demonstrated evidence for pneumocyte to hyperplasia with mild atypia but no evidence of malignancy in the submitted specimen. 04/07/2017: CT chest with contrast was performed which showed that the previously seen spiculated mass in left lower lobe had enlarged and now measures 2.04 x 1.72 cm, there is a slightly enlarged small indistinct nodular density in the right upper lobe medially posterior to the trachea which measures 0.46 cm and on the previous exam measured 0.3 cm, there is a lymph node anterior to the right mainstem bronchus which on short axis measures 0.95 cm and previously was 0.65 cm, enlarged left hilar lymph node measuring 1.1 cm is new. 07/07/2017: CT chest with contrast was performed which demonstrated a 2.4 x 1.2 cm lobulated irregular nodular density in the peripheral aspect of the left lower lobe which has increased in size from the previous study, a prominent left hilar lymph node is measured at 2.2 cm. 09/16/2017: CT chest with contrast was performed and demonstrated that the left lower lobe nodular density measuring 3.5 x 2.5 cm and previously measured 2.4 x 1.2 cm, there is a new left infrahilar mass measuring about 4.2 by 3.4 cm resulting in complete occlusion of the right lower lobe bronchus with extension into the segmental bronchi of the right lower lobe. 09/26/2017: Bronchoscopy with EBUS was performed. There was noted to be a large circumferential endobronchial lesion noted at the bifurcation of the left upper and left lower lobes and this lesion appeared to nearly completely obstructed orifice of the left lower lobe takeoff. On ultrasound this lesion measured at least 3.5 x 4.5 cm and several biopsies were obtained. Pathology demonstrated fragment of necrotic material with atypical squamous cells suspicious for carcinoma (CK7 weakly positive, CK20/TTF1/p16 all negative). 10/14/2017: MRI brain was completed which showed no evidence for intracranial metastatic disease. 10/16/2017: PET scan was performed which showed evidence for persistent and newly defined increased glucose concentration manifest in the left mid lower posterior, posterior lateral hemithorax pulmonary parenchyma with a calculated SUV of 12.7, newly defined increased glucose concentration manifest in the precarinal posterior mediastinum and left thoracic perihilum. There is interim metabolic resolution of the previously identified left lower lobe pulmonary parenchymal as well as laryngeal structure hypermetabolic abnormalities. 11/07/2017: Patient underwent ultrasound-guided thoracentesis and 530 mL of blood-tinged fluid was drained, there were no malignant cells identified in the retreat fluid. 11/10/2017: Patient was admitted after returning to the hospital with increasing shortness of breath over the weekend. 11/11/2017: Left tunneled Pleurx catheter was placed 11/12/2017: CT chest without contrast was performed which demonstrated progressive opacification of the left hemithorax with only a small amount of aeration within the left upper lobe, ill-defined hilar density consistent with the previously identified mass/adenopathy, volume loss within the left chest with mediastinal shift towards the left, small nodular density along the right side of the trachea which may represent adherent debris or mass, complete occlusion of the left mainstem bronchus, small left pleural effusion with pleural catheter in place. 11/13/2017: Due to the need for interventional pulmonology consultation the patient was transferred to [facility] to attempt bronchoscopy and stent placement. Mucous plugging and tumor were noted in the left mainstem bronchus, an endobronchial stent was placed but then removed due to suboptimal position and therefore he was sent back to the ICU and extubated and then discharged on 11/14/2017. From 11/25/17 - 01/12/18: Patient received definitive chemoradiation therapy to the left lung and hilar disease consisting of 6000 cGy in 30 fractions. 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 From 07/04/15-08/25/15 he received 7104 cGy in 36 fractions. Chemotherapy was given from 07/04/2015 through 08/09/2015 and consisted of 3 cycles of 100 mg/m cisplatin. 2) From 11/25/17 - 01/12/18: Patient received definitive chemoradiation therapy to the left lung and hilar disease consisting of 6000 cGy in 30 fractions. No pacemaker Interval History: Patient returns for a one-month follow-up after completing chemoradiation. He initiated consolidative chemotherapy approximately 3 weeks ago and reports tolerating this very well. Breathing is improved and he denies having much shortness of breath on exertion. He does not use oxygen supplementation. He woke up with a discomfort in the left posterior lateral back last evening which is sore to the touch this morning but denies having any other pain. He reports occasional fatigue. He has back home and living by himself and able to take care of all activities of daily living without difficulty. He continues to be PEG dependent since his treatment for the head and neck cancer and reports no weight loss recently. He continues to swallow fluids by mouth and has very minimal discomfort with swallowing. I have reviewed the medical, surgical, and other pertinent history in details and have updated medication and allergy information in the electronic medical record. Review of Systems: A 12-point review of systems was completed and was negative except for what is noted in the HPI/Interval History and by the nurse. Imaging: As per HPI, no new imaging. 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 Unfortunately due to treatment delays the lung cancer appears to have progressed and caused complete collapse of the left lung romeo and interventional pulmonology was unable to place stent. From 11/25/17 - 01/12/18: Patient received definitive chemoradiation therapy to the left lung and hilar disease consisting of 6000 cGy in 30 fractions. Patient returns 1 month after completing chemoradiation therapy and he is tolerating consolidative chemotherapy very well. He does not appear to have any residual toxicities from radiation therapy other than mild fatigue at times and mild odynophagia occasionally but it is unclear that this is actually related. Plan: Patient is planning to complete consolidative chemotherapy in March and will then have a follow-up chest CT scan. I reviewed with the patient that I will follow-up with him following the scan to discuss the results. I encouraged him to continue swallowing as much as he can by mouth in an effort to potentially remove the PEG but unfortunate this is already been present for at least 2 years so getting off the PEG tube will be very difficult. Patient was in agreement with our follow-up plan and was instructed to call with any further questions or concerns in the interim. Vish Crespo DO, [employer], Department of Radiation Oncology [facility] 02/12/18 1043 <Electronically signed by Vish Crespo DO> Date Vish Crespo DO CC: Nino Leigh MD Signed ONCOLOGY VISIT REPORT Observed: 02/12/2018 Status: F Source: GIANNA 10:20 AM [facility] REPOSITORY [facility] [place] [address] OFFICE VISIT Date of Service: 02/12/18 1009 MR#: [id number] Acct: [id number] Name: TOMY MUNSON Rep #: [id number] : 1955 From: Nino Leigh MD Age/Sex: 62/M Location: OMD Status: Signed Subjective - Date of Service Date of Service:: 02/12/18 - Chief Complaint NSCLC on treatment - History of Present Illness Mr. 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 He was treated with concurrent chemotherapy and Radiation. He received 3 cycles of Cisplatin 100mg/m2 from 07/04/2015-08/09/2015. He had a PET/CT done on 11/30/2015 which showed no hypermetabolic activity. PET/CT on 09/30/2016 demonstrated hypermetabolic activity within the left lower lobe and at the level of the laryngeal structures. Underwent biopsies of larynx on 11/15/16 under the care of Dr. Ascencio, pathology of which were negative. Had CT guided bx of LLL nodule on 01/02/[address] scan of chest on 09/16/2017 showed increasing Left lower lobe mass and new Left hilar mass. He was referred for EBUS + biopsy, it was done on 09/26/2017 and showed squamous cell cancer. MRI brain done on 10/14/2017 was negative for brain metastases. PET/CT on 10/16/2017 shows new hypermetabolic activity in left hemithorax with activity in precarinal area mediastinum, left perihilar area and pleural effusion. He had increase in Pleural fluid, thoracentesis showed no malignant cells. Pleurx cath was placed. He was transferred to [facility] for bronchial stenting but could not be done. He was staged as NSCLC stage IIIB. He started chemotherapy with Carboplatin and Taxol every 28 days on 11/20/2017 and Radiation therapy on 11/24/2017. He was admitted 12/07/17-12/15/17 for sepsis and infected Pleurx catheter which was removed. Required admission 12/24/09 for management of atrial flutter with RVR, discharged home on ASA 81 and cardizem. cycle 2 day 8 Taxol omitted. Received cycle 2 day 15 Taxol on 01/01/18. Finished Radiation therapy on 01/12/2018. Started consolidation chemotherapy on 01/22/2018 with Carboplatin and Taxol, C3D15 Taxol was delayed last week because of neutropenia. - Past Medical/Social History Past Medical History Past Medical History: Anemia Other Past Medical History: Hyponatremia Hypothyroidism Dysphagia Hypernatremia Lymphadenitis Measles Mumps Chicken Pox Cancer: Lung cancer,Oral cancer Other Cancer History: hx of laryngeal ca 06/21/15 treated w/chemo and radiation. Past Surgical History Surgical: Hernia repair Other Surgical History: Left Wrist surgery Peg Tube Family History Paternal Past Medical History: Heart disease Maternal Past Medical History: Unknown Social History Social History: No changes Smoking Status Former smoker Review of Systems Constitutional:: Denies: Fever, Sweats, Weight loss, Appetite change, Chills Cardiovascular:: Denies: Chest pain, Palpitations, Dyspnea on exertion, Orthopnea, PND, Shortness of breath Respiratory: Denies: Cough, Hemoptysis, Shortness of Breath, Wheezing Gastrointestinal:: Denies: Abdominal pain, Nausea, Vomiting, Diarrhea, Constipation, Hematochezia Genitourinary: Denies: Dysuria, Hematuria, 15, Flank pain Musculoskeletal:: Denies: Back pain, Myalgia, Arthralgia Skin: Denies: Rash, Skin Changes, Wounds Neurological:: Denies: Headache, Dizziness, Visual changes, Tinnitus, Hearing loss Psychiatric: Denies: Anxiety, Depression, Homicidal Ideations, Suicidal Ideations Vital Signs Height 5 ft 7 in Weight: 57.516 kg Weight in Pounds 126.8 lbs BMI 20.7 Pulse Ox 96 - Physical Exam General: Alert, Oriented x3, No apparent distress, - - Port L IC area. HEENT: Atraumatic, PERRLA, EOMI, Normocephalic Oropharynx:: - - edentulous Neck:: Supple, Trachea midline. Negative for: JVD, bilateral Cardiac:: Regular rate, Regular rhythm, Normal S1, Normal S2. Negative for: Murmur Lungs: Clear to auscultation, Excusion symmetrical. Negative for: Rhonchi, Wheezes Abdomen:: Bowel sounds x 4, Soft, Non-tender, Non-distended, - - + PEG tube. Negative for: Hepatosplenomegaly Neurological: Neuro grossly intact Lymphatics:: Negative for: Cervical lymphadenopathy, Supraclavicular lymphadenopathy, Axillary lymphadenopathy Laboratory Data: Laboratory Tests Assessment and Plan Non small cell lung cancer, squamous cell type, T4 N2 M0-stage IIIB, Pleural fluid is negative for malignant cells. Has finished Carboplatin and Taxol with Radiation. Now on consolidation chemotherapy with Carboplatin and Taxol C3. History of Laryngeal CA stage TAWNY, S/P Chemoradiation therapy. Counts are OK for therapy. Plan is to proceed with C3D15 Taxol. Continue Percocet, use Miralax for constipation prophylaxis. Return to clinic 2 wks with CBC/CMP for C4D1 Taxol + Carboplatin. Medications: Prescriptions This Visit Medication Instructions Recorded Primary Care Provider: ROYCE Montero Referring Provider: - Problem List (1) History of laryngeal cancer Status: Chronic (2) Non-small cell carcinoma of left lung, stage 3 Status: Chronic (3) Chemotherapy management, encounter for Status: Chronic Code Visit Office Visits / Consults: 04365 OV L5 Est 02/12/18 1020 <Electronically signed by Nino Leigh MD> Date Nino Leigh MD Cosigner Signature: Date (if applicable) CC: CBC W/DIFF, AUTOMATED Collected: 02/12/2018 Status: F Source: [facility] 9:14 AM [facility] REPOSITORY TYPE CODE TESTS RESULT OUT OF RANGE REFERENCE UNITS LAB L100.1000 4.4-11.0 K/mm3 Low WBC 2.5 LAB L100.1200 4.6-6.2 M/mm3 Low RBC 2.22 LAB L100.1300 13.0-16.5 g/dl Low HGB 7.5 LAB L100.1400 40-54 % Low HCT 23.0 LAB L100.1500 80-94 fL High MCV 103.6 LAB L100.1600 27.0-32.0 pg High MCH 33.8 LAB L100.1700 32-36 g/gl Normal MCHC 32.6 LAB L100.1810 11.6-14.6 % High RDW CV 24.9 LAB L100.1820 35.1-43.9 fl High RDW SD 87.1 LAB L100.1900 150-450 K/mm3 Low PLT 138 LAB L100.2000 6.2-12.0 fl Normal MPV 9.1 LAB L100.2100 47-70 % High NEUT% 81.4 LAB L100.2200 19-41 % Low LY% 8.3 LAB L100.2300 0-10 % Normal MONO% 9.1 LAB L100.2400 0-5 % Normal EO% 0.8 LAB L100.2500 0-1 % Normal BASO% 0.4 LAB L100.2550 0.0-0.9 % Normal IM GRAN % 0.000 Result Comment: IG% - Immature Granulocytes (promyelocytes, myelocytes and metamyelocytes) > 1% indicates that a LEFT SHIFT is Present. LAB L100.2620 2.0-7.7 X10 3/uL Absolute Neut Normal 2.1 LAB L100.2720 0.83-4.51 X10 3/ul Low Absolute Lymph 0.21 LAB L100.5500 ADEQ PLT EST Normal ADEQUATE LAB L100.7300 ANISO Normal 1+ LAB L100.7500 POLYCHROMASIA Normal RARE LAB L100.7600 HYPOCHROMASIA Normal 2+ LAB L100.7800 MACROCYTE Normal 1+ Performed By: #### L100.0100 #### [facility] [address] [place], [place], [address] CBC W/DIFF, AUTOMATED Collected: 02/05/2018 Status: C Source: [place] 9:00 AM [facility] REPOSITORY TYPE CODE TESTS RESULT OUT OF RANGE REFERENCE UNITS LAB L100.1000 4.4-11.0 K/mm3 Low alert WBC 1.3 Result Comment: CRITICAL VALUE VERIFIED. CALLED TO VICTORINO MARTIN 02/05/18 0976 Sandeep Nuñez. RESULTS READ BACK BY SAME. LAB L100.1200 4.6-6.2 M/mm3 Low RBC 2.38 LAB L100.1300 13.0-16.5 g/dl Low HGB 7.6 LAB L100.1400 40-54 % Low HCT 23.4 LAB L100.1500 80-94 fL High MCV 98.3 LAB L100.1600 27.0-32.0 pg Normal MCH 31.9 LAB L100.1700 32-36 g/gl Normal MCHC 32.5 LAB L100.1810 11.6-14.6 % High RDW 24.7 CV LAB L100.1820 35.1-43.9 fl High RDW 84.0 SD LAB L100.1900 150-450 K/mm3 Low PLT 112 LAB L100.2000 6.2-12.0 fl Normal MPV 9.6 LAB L100.2100 47-70 % Normal NEUT% 65.6 LAB L100.2200 19-41 % Normal LY% 20.0 LAB L100.2300 0-10 % High MONO% 12.8 LAB L100.2400 0-5 % Normal EO% 0.8 LAB L100.2500 0-1 % Normal BASO% 0.8 LAB L100.2550 0.0-0.9 % Normal IM 0.000 GRAN % Result Comment: IG% - Immature Granulocytes (promyelocytes, myelocytes and metamyelocytes) > 1% indicates that a LEFT SHIFT is Present. LAB L100.2620 2.0-7.7 X10 3/uL Low Absolute Neut 0.8 LAB L100.2720 0.83-4.51 X10 3/ul Low Absolute Lymph 0.25 LAB L100.4500 Normal SMEAR COMMENT COMMENT Result Comment: SLIDE SCANNED - NEUTROPENIA,LYMPHOPENIA,LEUKOCYTOPENIA, 1+ ANISO. LAB L100.9900 Normal Reviewed PATH REV Result Comment: Pancytopenia. Clinical correlation necessary. Los Simental M.D. 02/06/18 AMENDED REPORT 02/06/18 1003 PATH REV previously reported as: September ale Performed By: #### L100.0100, L500.4050, L501.5200, L501.9520, L506.0400 #### [facility] [address] [place], [place], [address] COMPREHENSIVE METABOLIC Collected: 02/05/2018 Status: F Source: [facility] 9:00 AM [facility] REPOSITORY Order Comment: Reason for Laboratory Test Chemotherapy TYPE CODE TESTS RESULT OUT OF RANGE REFERENCE UNITS LAB L501.0100 74-106 mg/dL High GLU 109 Result Comment: Fasting Glucose result from 100 to 125 mg/dL suggests IMPAIRED HOMEOSTASIS per A.D.A. criteria. Please note revised GLUCOSE reference range effective 2017. LAB L501.1000 7-18 mg/dL High BUN 25 LAB L501.1100 0.70-1.30 mg/dL Normal CREAT,SERUM 1.00 Result Comment: The validity of the calculated GFR AND GFRAA in patients over 70 years has not been determined. Clinical correlation is essential. LAB L501.1110 >60 mL/min Normal EST GFR 81 Result Comment: Non- GFR Calc LAB L501.1115 >60 mL/min Normal EST GFR - AA 98 Result Comment: GFR Calc LAB L501.1255 ml/min Normal Estimated CRCL 62.31 LAB L501.1300 10-20 RATIO High BUN/CRE 25.1 LAB L501.1500 6.4-8. g/dL Normal 2 T PROT 7.1 LAB L501.1800 3.2-5. g/dL Normal 0 ALB 3.4 LAB L501.1950 2.2-4. g/dL Normal 2 GLOB 3.7 LAB L501.2000 0.9-2. RATIO Normal 4 A/G 0.9 LAB L501.2200 8.5-10 mg/dL Normal .1 CA 9.3 LAB L501.4100 15-37 U/L Normal AST 17 LAB L501.4305 45-117 U/L Normal ALK P 78 LAB L501.4405 16-61 U/L Normal ALT 19 LAB L501.4600 0.20-1 mg/dL Normal .00 T BILI 0.40 LAB L501.5300 136-14 mmol/L Low 5 NA 134 LAB L501.5600 3.5-5. mmol/L Normal 1 K 3.8 LAB L501.5900 98-107 mmol/L Low CL 96 LAB L501.6100 21.0-3 mmol/L Normal 2.0 CO2 32.0 LAB L501.6200 5-15 Normal GAP 6 Performed By: #### L100.0100, L500.4050, L501.5200, L501.9520, L506.0400 #### [facility] [address] [place], [address] MAGNESIUM Collected: 02/05/2018 Status: F Source: [place] 9:00 AM [facility] REPOSITORY Order Comment: Reason for Laboratory Test Chemotherapy TYPE CODE TESTS RESULT OUT OF RANGE REFERENCE UNITS LAB L501.5200 1.6-2.6 mg/dL Normal MG 1.8 Performed By: #### L100.0100, L500.4050, L501.5200, L501.9520, L506.0400 #### [facility] [address] [place], [address] THYROID STIM HORMONE Collected: 02/05/2018 Status: F Source: [facility] ([facility]) 9:00 AM [facility] REPOSITORY Order Comment: Reason for Laboratory Test Chemotherapy TYPE CODE TESTS RESULT OUT OF RANGE REFERENCE UNITS LAB L501.9520 0.358-3.74 uIU/mL High TSH 17.50 Performed By: #### L100.0100, L500.4050, L501.5200, L501.9520, L506.0400 #### [facility] [address] [facility] [place], [address] T4 FREE DIRECT Collected: 02/05/2018 Status: F Source: [place] 9:00 AM [facility] REPOSITORY Order Comment: Reason for Laboratory Test Chemotherapy TYPE CODE TESTS RESULT OUT OF RANGE REFERENCE UNITS LAB L506.0400 0.76-1.46 ng/dL Normal T4 FREE 1.15 DIRECT Performed By: #### L100.0100, L500.4050, L501.5200, L501.9520, L506.0400 #### [facility] [address] [facility] [place], [place], [address] CBC W/DIFF, AUTOMATED Collected: 01/30/2018 Status: F Source: [place] 8:57 AM [facility] REPOSITORY Order Comment: Reason for Laboratory Test chemo TYPE CODE TESTS RESULT OUT OF RANGE REFERENCE UNITS LAB L100.1000 4.4-11.0 K/mm3 Low WBC 3.1 LAB L100.1200 4.6-6.2 M/mm3 Low RBC 2.50 LAB L100.1300 13.0-16.5 g/dl Low HGB 7.8 LAB L100.1400 40-54 % Low HCT 24.3 LAB L100.1500 80-94 fL High MCV 97.2 LAB L100.1600 27.0-32.0 pg Normal MCH 31.2 LAB L100.1700 32-36 g/gl Normal MCHC 32.1 LAB L100.1810 11.6-14.6 % High RDW CV 24.5 LAB L100.1820 35.1-43.9 fl High RDW SD 82.4 LAB L100.1900 150-450 K/mm3 Normal PLT 267 LAB L100.2000 6.2-12.0 fl Normal MPV 8.3 LAB L100.2100 47-70 % High NEUT% 82.7 LAB L100.2200 19-41 % Low LY% 12.7 LAB L100.2300 0-10 % Normal MONO% 3.6 LAB L100.2400 0-5 % Normal EO% 0.0 LAB L100.2500 0-1 % Normal BASO% 0.7 LAB L100.2550 0.0-0.9 % Normal IM GRAN % 0.300 Result Comment: IG% - Immature Granulocytes (promyelocytes, myelocytes and metamyelocytes) > 1% indicates that a LEFT SHIFT is Present. LAB L100.2620 2.0-7.7 X10 3/uL Absolute Neut Normal 2.5 LAB L100.2720 0.83-4.51 X10 3/ul Low Absolute Lymph 0.39 LAB L100.7300 ANISO Normal 3+ LAB L100.7600 HYPOCHROMASIA Normal 1+ LAB L100.9900 PATH REV Normal Reviewed Result Comment: Leukopenia and Microcytic anemia. Clinical correlation necessary. Los Simental M.D. 01/30/18 Performed By: #### L100.0100, L500.4050, L501.5200 #### [facility] [address] [place], [place], [address] COMPREHENSIVE METABOLIC Collected: 01/30/2018 Status: F Source: [facility] 8:57 AM [facility] REPOSITORY Order Comment: Reason for Laboratory Test chemo TYPE CODE TESTS RESULT OUT OF RANGE REFERENCE UNITS LAB L501.0100 74-106 mg/dL Normal GLU 103 Result Comment: Fasting Glucose result from 100 to 125 mg/dL suggests IMPAIRED HOMEOSTASIS per A.D.A. criteria. Please note revised GLUCOSE reference range effective 2017. LAB L501.1000 7-18 mg/dL High BUN 27 LAB L501.1100 0.70-1.30 mg/dL Normal CREAT,SERUM 0.89 Result Comment: The validity of the calculated GFR AND GFRAA in patients over 70 years has not been determined. Clinical correlation is essential. LAB L501.1110 >60 mL/min Normal EST GFR 92 Result Comment: Non- GFR Calc LAB L501.1115 >60 mL/min Normal EST GFR - AA 111 Result Comment: GFR Calc LAB L501.1255 ml/min Normal Estimated CRCL 70.89 LAB L501.1300 10-20 RATIO High BUN/CRE 30.3 LAB L501.1500 6.4-8. g/dL Normal 2 T PROT 6.9 LAB L501.1800 3.2-5. g/dL Normal 0 ALB 3.3 LAB L501.1950 2.2-4. g/dL Normal 2 GLOB 3.6 LAB L501.2000 0.9-2. RATIO Normal 4 A/G 0.9 LAB L501.2200 8.5-10 mg/dL Normal .1 CA 8.8 LAB L501.4100 15-37 U/L Normal AST 19 LAB L501.4305 45-117 U/L Normal ALK P 79 LAB L501.4405 16-61 U/L Normal ALT 23 LAB L501.4600 0.20-1 mg/dL Normal .00 T BILI 0.30 LAB L501.5300 136-14 mmol/L Normal 5 NA 137 LAB L501.5600 3.5-5. mmol/L Normal 1 K 4.2 LAB L501.5900 98-107 mmol/L Normal CL 101 LAB L501.6100 21.0-3 mmol/L Normal 2.0 CO2 30.0 LAB L501.6200 5-15 Normal GAP 6 Performed By: #### L100.0100, L500.4050, L501.5200 #### [facility] [address] [place], [address] MAGNESIUM Collected: 01/30/2018 Status: F Source: [place] 8:57 AM [facility] REPOSITORY Order Comment: Reason for Laboratory Test chemo TYPE CODE TESTS RESULT OUT OF RANGE REFERENCE UNITS LAB L501.5200 1.6-2.6 mg/dL Normal MG 1.6 Performed By: #### L100.0100, L500.4050, L501.5200 #### [facility] [address] [place], [address] ONCOLOGY VISIT REPORT Observed: 01/23/2018 Status: F Source: [place] 11:00 AM [facility] REPOSITORY [facility] [address] [place] [address] OFFICE VISIT Date of Service: 01/22/18 1026 MR#: [id number] Acct: [id number] Name: TOMY MUNSON Rep #: [id number] : 1955 From: Nino Leigh MD Age/Sex: 62/M Location: ONC Status: Signed Subjective - Date of Service Date of Service:: 01/22/18 - Chief Complaint NSCLC on treatment - History of Present Illness Mr. 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 He was treated with concurrent chemotherapy and Radiation. He received 3 cycles of Cisplatin 100mg/m2 from 07/04/2015-08/09/2015. He had a PET/CT done on 11/30/2015 which showed no hypermetabolic activity. PET/CT on 09/30/2016 demonstrated hypermetabolic activity within the left lower lobe and at the level of the laryngeal structures. Underwent biopsies of larynx on 11/15/16 under the care of Dr. Ascencio, pathology of which were negative. Had CT guided bx of LLL nodule on 01/02/[address] scan of chest on 09/16/2017 showed increasing Left lower lobe mass and new Left hilar mass. He was referred for EBUS + biopsy, it was done on 09/26/2017 and showed squamous cell cancer. MRI brain done on 10/14/2017 was negative for brain metastases. PET/CT on 10/16/2017 shows new hypermetabolic activity in left hemithorax with activity in precarinal area mediastinum, left perihilar area and pleural effusion. He had increase in Pleural fluid, thoracentesis showed no malignant cells. Pleurx cath was placed. He was transferred to [facility] for bronchial stenting but could not be done. He was staged as NSCLC stage IIIB. He started chemotherapy with Carboplatin and Taxol every 28 days on 11/20/2017 and Radiation therapy on 11/24/2017. He was admitted 12/07/17-12/15/17 for sepsis and infected Pleurx catheter which was removed. Required admission 12/24/09 for management of atrial flutter with RVR, discharged home on ASA 81 and cardizem. cycle 2 day 8 Taxol omitted. Received cycle 2 day 15 Taxol on 01/01/18. Finished Radiation therapy on 01/12/2018. Comes in for follow up to start consolidation chemotherapy. - Past Medical/Social History Past Medical History Past Medical History: Anemia Other Past Medical History: Hyponatremia Hypothyroidism Dysphagia Hypernatremia Lymphadenitis Measles Mumps Chicken Pox Cancer: Lung cancer,Oral cancer Other Cancer History: hx of laryngeal ca 06/21/15 treated w/chemo and radiation. Past Surgical History Surgical: Hernia repair Other Surgical History: Left Wrist surgery Peg Tube Family History Paternal Past Medical History: Heart disease Maternal Past Medical History: Unknown Social History Social History: No changes Smoking Status Former smoker Review of Systems Constitutional:: Denies: Fever, Sweats, Weight loss, Appetite change, Chills Cardiovascular:: Denies: Chest pain, Palpitations, Dyspnea on exertion, Orthopnea, PND, Shortness of breath Respiratory: Denies: Cough, Hemoptysis, Shortness of Breath, Wheezing Gastrointestinal:: Denies: Abdominal pain, Nausea, Vomiting, Diarrhea, Constipation, Hematochezia Genitourinary: Denies: Dysuria, Hematuria, 15, Flank pain Musculoskeletal:: Denies: Back pain, Myalgia, Arthralgia Skin: Denies: Rash, Skin Changes, Wounds Neurological:: Denies: Headache, Dizziness, Visual changes, Tinnitus, Hearing loss Psychiatric: Denies: Anxiety, Depression, Homicidal Ideations, Suicidal Ideations Vital Signs Height 5 ft 7 in Weight: 57.516 kg Weight in Pounds 126.8 lbs BMI 20.7 Pulse Ox 96 - Physical Exam General: Alert, Oriented x3, No apparent distress HEENT: Atraumatic, PERRLA, EOMI, Normocephalic Oropharynx:: Dry mucosa Neck:: Supple, Trachea midline. Negative for: JVD, bilateral Cardiac:: Regular rate, Regular rhythm, Normal S1, Normal S2. Negative for: Murmur Lungs: Clear to auscultation, Excusion symmetrical. Negative for: Rhonchi, Wheezes Abdomen:: - - + PEG tube.` Neurological: Neuro grossly intact Lymphatics:: Negative for: Cervical lymphadenopathy, Supraclavicular lymphadenopathy, Axillary lymphadenopathy Laboratory Data: Laboratory Tests WBC 7.4 (4.4-11.0) K/mm3 Assessment and Plan Non small cell lung cancer, squamous cell type, T4 N2 M0-stage IIIB, Pleural fluid is negative for malignant cells. Has finished Carboplatin and Taxol with Radiation. History of Laryngeal CA stage TAWNY, S/P Chemoradiation therapy. Counts are improving. Plan is to do 2 cycles of consolidation chemotherapy with Taxol + Carboplatin starting today. Continue Percocet, use Miralax for constipation prophylaxis. Return to clinic 4 wks with CBC/CMP for C4D1 Taxol + Carboplatin. Medications: Prescriptions This Visit Medication Instructions Recorded Primary Care Provider: ROYCE Montero Referring Provider: - Problem List (1) History of laryngeal cancer Status: Chronic (2) Non-small cell carcinoma of left lung, stage 3 Status: Chronic (3) Chemotherapy management, encounter for Status: Chronic Code Visit Office Visits / Consults: 87846 OV L5 Est 01/23/18 1100 <Electronically signed by Nino Leigh MD> Date Nino Leigh MD Cosigner Signature: Date (if applicable) CC: CBC W/DIFF, AUTOMATED Collected: 01/22/2018 Status: C Source: [facility] 9:07 AM [facility] REPOSITORY TYPE CODE TESTS RESULT OUT OF RANGE REFERENCE UNITS LAB L100.1000 4.4-11.0 K/mm3 Normal WBC 7.4 LAB L100.1200 4.6-6.2 M/mm3 Low RBC 2.74 LAB L100.1300 13.0-16.5 g/dl Low HGB 8.7 LAB L100.1400 40-54 % Low HCT 27.3 LAB L100.1500 80-94 fL High MCV 99.6 LAB L100.1600 27.0-32.0 pg Normal MCH 31.8 LAB L100.1700 32-36 g/gl Low MCHC 31.9 LAB L100.1810 11.6-14.6 % High RDW CV 26.0 LAB L100.1820 35.1-43.9 fl High RDW SD 84.4 LAB L100.1900 150-450 K/mm3 Normal PLT 380 LAB L100.2000 6.2-12.0 fl Normal MPV 8.4 LAB L100.2100 47-70 % High NEUT% 78.3 LAB L100.2200 19-41 % Low LY% 10.5 LAB L100.2300 0-10 % Normal MONO% 7.9 LAB L100.2400 0-5 % Normal EO% 0.1 LAB L100.2500 0-1 % Normal BASO% 0.3 LAB L100.2550 0.0-0.9 % High IM GRAN % 2.900 Result Comment: IG% - Immature Granulocytes (promyelocytes, myelocytes and metamyelocytes) > 1% indicates that a LEFT SHIFT is Present. LAB L100.2620 2.0-7.7 X10 3/uL Normal Absolute Neut 5.8 LAB L100.2720 0.83-4.51 X10 3/ul Low Absolute Lymph 0.77 LAB L100.4500 Normal SMEAR COMMENT SCANNED LAB L100.9900 Normal PATH REV Reviewed Result Comment: Macrocytic anemia. Neutrophilic left shift. Clinical correlation necessary. Los Simental M.D. 01/23/18 AMENDED REPORT 01/23/18 1114 PATH REV previously reported as: September ale Performed By: #### L100.0100 #### [facility] [place], [address] COMPREHENSIVE METABOLIC Collected: 01/22/2018 Status: F [facility] REPOSITORY Order Comment: Reason for Laboratory Test Chemotherapy TYPE CODE TESTS RESULT OUT OF RANGE REFERENCE UNITS LAB L501.0100 74-106 mg/dL Normal GLU 102 Result Comment: Fasting Glucose result from 100 to 125 mg/dL suggests IMPAIRED HOMEOSTASIS per A.D.A. criteria. Please note revised GLUCOSE reference range effective 2017. LAB L501.1000 7-18 mg/dL High BUN 22 LAB L501.1100 0.70-1.30 mg/dL Normal CREAT,SERUM 0.93 Result Comment: The validity of the calculated GFR AND GFRAA in patients over 70 years has not been determined. Clinical correlation is essential. LAB L501.1110 >60 mL/min Normal EST GFR 87 Result Comment: Non- GFR Calc LAB L501.1115 >60 mL/min Normal EST GFR - AA 105 Result Comment: GFR Calc LAB L501.1255 ml/min Normal Estimated CRCL 67.63 LAB L501.1300 10-20 RATIO High BUN/CRE 23.6 LAB L501.1500 6.4-8. g/dL Normal 2 T PROT 7.2 LAB L501.1800 3.2-5. g/dL Normal 0 ALB 3.2 LAB L501.1950 2.2-4. g/dL Normal 2 GLOB 4.0 LAB L501.2000 0.9-2. RATIO Low 4 A/G 0.8 LAB L501.2200 8.5-10 mg/dL Normal .1 CA 9.1 LAB L501.4100 15-37 U/L Normal AST 17 LAB L501.4305 45-117 U/L Normal ALK P 84 LAB L501.4405 16-61 U/L Normal ALT 19 LAB L501.4600 0.20-1 mg/dL Normal .00 T BILI 0.30 LAB L501.5300 136-14 mmol/L Normal 5 NA 136 LAB L501.5600 3.5-5. mmol/L Normal 1 K 4.1 LAB L501.5900 98-107 mmol/L Normal CL 99 LAB L501.6100 21.0-3 mmol/L Normal 2.0 CO2 30.0 LAB L501.6200 5-15 Normal GAP 7 Performed By: #### L500.4050, L501.5200 #### [facility] [address] [place], [address] MAGNESIUM Collected: 01/22/2018 Status: F Source: [facility] 9:06 AM [facility] REPOSITORY Order Comment: Reason for Laboratory Test Chemotherapy TYPE CODE TESTS RESULT OUT OF RANGE REFERENCE UNITS LAB L501.5200 1.6-2.6 mg/dL Normal MG 2.2 Performed By: #### L500.4050, L501.5200 #### [facility] [address] [place], [address] ONCOLOGY VISIT REPORT Observed: 01/19/2018 Status: F Source: [facility] 5:47 PM [facility] REPOSITORY [facility] [address] [place] [address] OFFICE VISIT Date of Service: 01/19/18 1738 MR#: [id number] Acct: [id number] Name: TOMY MUNSON Rep #: [id number] : 1955 From: Nino Leigh MD Age/Sex: 62/M Location: OMD Status: Signed Subjective - Date of Service Date of Service:: 01/14/18 - Chief Complaint NSCLC on treatment - History of Present Illness Mr. 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 He was treated with concurrent chemotherapy and Radiation. He received 3 cycles of Cisplatin 100mg/m2 from 07/04/2015-08/09/2015. He had a PET/CT done on 11/30/2015 which showed no hypermetabolic activity. PET/CT on 09/30/2016 demonstrated hypermetabolic activity within the left lower lobe and at the level of the laryngeal structures. Underwent biopsies of larynx on 11/15/16 under the care of Dr. Ascencio, pathology of which were negative. Had CT guided bx of LLL nodule on 01/02/[address] scan of chest on 09/16/2017 showed increasing Left lower lobe mass and new Left hilar mass. He was referred for EBUS + biopsy, it was done on 09/26/2017 and showed squamous cell cancer. MRI brain done on 10/14/2017 was negative for brain metastases. PET/CT on 10/16/2017 shows new hypermetabolic activity in left hemithorax with activity in precarinal area mediastinum, left perihilar area and pleural effusion. He had increase in Pleural fluid, thoracentesis showed no malignant cells. Pleurx cath was placed. He was transferred to [facility] for bronchial stenting but could not be done. He was staged as NSCLC stage IIIB. He started chemotherapy with Carboplatin and Taxol every 28 days on 11/20/2017 and Radiation therapy on 11/24/2017. He was admitted 12/07/17-12/15/17 for sepsis and infected Pleurx catheter which was removed. Required admission 12/24/09 for management of atrial flutter with RVR, discharged home on ASA 81 and cardizem. cycle 2 day 8 Taxol omitted. Received cycle 2 day 15 Taxol on 01/01/18. Finished Radiation therapy. Comes in for follow up. He feels well, had abdominal pain and found to have constipation. He had stopped Miralax. - Past Medical/Social History Past Medical History Past Medical History: Anemia Other Past Medical History: Hyponatremia Hypothyroidism Dysphagia Hypernatremia Lymphadenitis Measles Mumps Chicken Pox Cancer: Lung cancer,Oral cancer Other Cancer History: hx of laryngeal ca 06/21/15 treated w/chemo and radiation. Past Surgical History Surgical: Hernia repair Other Surgical History: Left Wrist surgery Peg Tube Family History Paternal Past Medical History: Heart disease Maternal Past Medical History: Unknown Social History Social History: No changes Smoking Status Former smoker Review of Systems Constitutional:: Denies: Fever, Sweats, Weight loss, Appetite change, Chills Cardiovascular:: Denies: Chest pain, Palpitations, Dyspnea on exertion, Orthopnea, PND, Shortness of breath Respiratory: Denies: Cough, Hemoptysis, Shortness of Breath, Wheezing Gastrointestinal:: Denies: Abdominal pain, Nausea, Vomiting, Diarrhea, Constipation, Hematochezia Genitourinary: Denies: Dysuria, Hematuria, 15, Flank pain Musculoskeletal:: Denies: Back pain, Myalgia, Arthralgia Skin: Denies: Rash, Skin Changes, Wounds Neurological:: Denies: Headache, Dizziness, Visual changes, Tinnitus, Hearing loss Psychiatric: Denies: Anxiety, Depression, Homicidal Ideations, Suicidal Ideations Vital Signs Height 5 ft 7 in Weight: 58.06 kg Weight in Pounds 128.0 lbs BMI 20.7 Pulse Ox 97 - Physical Exam General: Alert, Oriented x3, No apparent distress HEENT: Atraumatic, PERRLA, EOMI, Normocephalic Oropharynx:: Dry mucosa Neck:: Supple, Trachea midline. Negative for: JVD, bilateral Cardiac:: Regular rate, Regular rhythm, Normal S1, Normal S2. Negative for: Murmur Lungs: Clear to auscultation, Excusion symmetrical. Negative for: Rhonchi, Wheezes Abdomen:: - - +PEG. Neurological: Neuro grossly intact Lymphatics:: Negative for: Cervical lymphadenopathy, Supraclavicular lymphadenopathy, Axillary lymphadenopathy Assessment and Plan Non small cell lung cancer, squamous cell type, T4 N2 M0-stage IIIB, Pleural fluid is negative for malignant cells. Has finished Carboplatin and Taxol with Radiation. History of Laryngeal CA stage TAWNY, S/P Chemoradiation therapy. Counts are improving. Plan is to do 2 cycles of consolidation chemotherapy with Taxol + Carboplatin next week. Continue Percocet, use Miralax for constipation prophylaxis. Return to clinic 1 wk with CBC/CMP for C3D1 Taxol + Carboplatin. Medications: Prescriptions This Visit Medication Instructions Recorded Primary Care Provider: ROYCE Montero Referring Provider: - Problem List (1) History of laryngeal cancer Status: Chronic (2) Non-small cell carcinoma of left lung, stage 3 Status: Chronic (3) Chemotherapy management, encounter for Status: Chronic Code Visit Office Visits / Consults: 07850 OV L5 Est 01/19/18 6617 <Electronically signed by Nino Leigh MD> Date Nino Leigh MD Cosigner Signature: Date (if applicable) CC: 12 LEAD ELECTROCARDIOGRAM Observed: 01/14/2018 Status: F Source: [place] 1:44 PM [facility] REPOSITORY [facility] Cardiovascular Services [address] [place] [address] 12 Lead EKG 01/12/18 1544 MR#: [id number] Acct: [id number] Name: TOMY MUNSON Rep #: [id number] : 1955 62 From: Kayode Arreaga MD Attending Dr: Aminah Vaz MD Status: DIS IN Ordering Dr: Aminah Vaz MD Date: 01/12/18 Location: [facility] Sex: M C Admitted: 01/12/18 Test Reason : ADMISSION Blood Pressure : / mmHG Vent. Rate : 083 BPM Atrial Rate : 083 BPM P-R Int : 132 ms QRS Dur : 086 ms QT Int : 362 ms P-R-T Axes : 072 055 066 degrees QTc Int : 425 ms Normal sinus rhythm Low voltage QRS (limb leads) Borderline ECG Confirmed by GIBSON FERNANDEZ, KAYODE ([id number]), editor in chief newspaper BLANCA NICOLAS ([id number]) on 01/14/2018 1:44:27 PM Referred By: Alfred Sarmiento Confirmed By:KAYODE ARREAGA MD 01/14/18 1344 Date Kayode Arreaga MD CC: CAD ENGINEER-C Alfred Sarmiento; Aminah Vaz MD Signed CBC W/DIFF, AUTOMATED Collected: 01/14/2018 Status: C Source: [place] 11:12 AM [facility] REPOSITORY Order Comment: Reason for Laboratory Test . TYPE CODE TESTS RESULT OUT OF RANGE REFERENCE UNITS LAB L100.1000 4.4-11.0 K/mm3 Low WBC 2.8 LAB L100.1200 4.6-6.2 M/mm3 Low RBC 2.86 LAB L100.1300 13.0-16.5 g/dl Low HGB 8.7 LAB L100.1400 40-54 % Low HCT 26.7 LAB L100.1500 80-94 fL Normal MCV 93.4 LAB L100.1600 27.0-32.0 pg Normal MCH 30.4 LAB L100.1700 32-36 g/gl Normal MCHC 32.6 LAB L100.1810 11.6-14.6 % High RDW CV 23.4 LAB L100.1820 35.1-43.9 fl High RDW SD 75.0 LAB L100.1900 150-450 K/mm3 Low PLT 89 LAB L100.2000 6.2-12.0 fl Normal MPV 9.7 LAB L100.2100 47-70 % Normal NEUT% 64.5 LAB L100.2200 19-41 % Low LY% 10.5 LAB L100.2300 0-10 % High MONO% 20.7 LAB L100.2400 0-5 % Normal EO% 1.1 LAB L100.2500 0-1 % Normal BASO% 0.7 LAB L100.2550 0.0-0.9 % High IM GRAN % 2.500 Result Comment: IG% - Immature Granulocytes (promyelocytes, myelocytes and metamyelocytes) > 1% indicates that a LEFT SHIFT is Present. LAB L100.2620 2.0-7.7 X10 3/uL Low Absolute Neut 1.8 LAB L100.2720 0.83-4.51 X10 3/ul Low Absolute Lymph 0.29 LAB L100.4800 TOXIC GRAN Normal 1+ LAB L100.5500 ADEQ PLT EST Normal SLT DEC LAB L100.7300 ANISO Normal 2+ LAB L100.7600 HYPOCHROMASIA Normal 1+ LAB L100.9900 PATH REV Normal Reviewed Result Comment: Pancytopenia. Absolute neutropenia. Normocytic anemia. Mild to moderate Thrombocytopenia. Clinical correlation necessary. Huber Maldonado D.O. 01/16/18 AMENDED REPORT 01/16/18 1227 PATH REV previously reported as: Summer aguilera Performed By: #### L100.0100 #### [facility] [place], [address] COMPREHENSIVE METABOLIC Collected: 01/14/2018 Status: F Source: [facility] 11:12 AM [facility] REPOSITORY Order Comment: Reason for Laboratory Test . TYPE CODE TESTS RESULT OUT OF RANGE REFERENCE UNITS LAB L501.0100 74-106 mg/dL High GLU 121 Result Comment: Fasting Glucose result from 100 to 125 mg/dL suggests IMPAIRED HOMEOSTASIS per A.D.A. criteria. Please note revised GLUCOSE reference range effective 2017. LAB L501.1000 7-18 mg/dL High BUN 21 LAB L501.1100 0.70-1.30 mg/dL Normal CREAT,SERUM 0.84 Result Comment: The validity of the calculated GFR AND GFRAA in patients over 70 years has not been determined. Clinical correlation is essential. LAB L501.1110 >60 mL/min Normal EST GFR 98 Result Comment: Non- GFR Calc LAB L501.1115 >60 mL/min Normal EST GFR - AA 119 Result Comment: GFR Calc LAB L501.1255 ml/min Normal Estimated CRCL 74.88 LAB L501.1300 10-20 RATIO High BUN/CRE 24.9 LAB L501.1500 6.4-8. g/dL Normal 2 T PROT 6.6 LAB L501.1800 3.2-5. g/dL Low 0 ALB 3.0 LAB L501.1950 2.2-4. g/dL Normal 2 GLOB 3.6 LAB L501.2000 0.9-2. RATIO Low 4 A/G 0.8 LAB L501.2200 8.5-10 mg/dL Normal .1 CA 8.9 LAB L501.4100 15-37 U/L Normal AST 16 LAB L501.4305 45-117 U/L Normal ALK P 73 LAB L501.4405 16-61 U/L Normal ALT 19 LAB L501.4600 0.20-1 mg/dL Normal .00 T BILI 0.50 LAB L501.5300 136-14 mmol/L Normal 5 NA 136 LAB L501.5600 3.5-5. mmol/L Normal 1 K 4.2 LAB L501.5900 98-107 mmol/L Normal CL 98 LAB L501.6100 21.0-3 mmol/L Normal 2.0 CO2 29.0 LAB L501.6200 5-15 Normal GAP 9 Performed By: #### L500.4050 #### [facility] [address] [place], [place], [id number] HH, HEMOGLOBIN AND Collected: 01/13/2018 Status: F Source: [facility] 6:05 PM [facility] REPOSITORY Order Comment: Comments: To be drawn after transfusion is complete TYPE CODE TESTS RESULT OUT OF RANGE REFERENCE UNITS LAB L100.1300 13.0-16.5 g/dl Low HGB 8.0 LAB L100.1400 40-54 % Low HCT 24.2 Performed By: #### L100.0600 #### [facility] [address] [place], [address] DISCHARGE SUMMARY Observed: 01/13/2018 Status: F Source: [place] 5:44 PM [facility] REPOSITORY [facility] Medical Records Department [address] [place] [address] Discharge Summary 01/13/18 1517 MR#: [id number] Acct: [id number] Name: TOMY MUNSON Rep #: [id number] : 1955 62 From: Robbi GUTHRIE PCP: ROYCE Montero Status: ADM IN Y [id number] <Robbi Pathak - Last Filed: 01/13/18 15:17> Discharge Date and Diagnosis - Problem List Patient Problems: Active and Suspected Problems (Last Updated 01/12/18 @ 16:49 by Serina Hollingsworth MD) Constipation (Acute) Pancytopenia (Acute) Abdominal pain (Acute) Pain (Acute) Date of Admission: 01/12/18 Date of Discharge: 01/13/18 - Primary Discharge Diagnosis Active and Suspected Problems (Last Updated 01/12/18 @ 16:49 by Serina Hollingsworth MD) Abdominal pain 2/2 Constipation (Acute) Pneumonia ruled out Pancytopenia (Acute) 2/2 lung cancer/chemo, NSCLC stage IIIb Laryngeal cancer, dysphagia, s/p PEG tube Afib Chronic hyponatremia Hypothyroidism - Secondary Discharge Diagnosis Chronic Problems (Last Updated 01/12/18 @ 16:49 by Serina Hollingsworth MD) PEG (percutaneous endoscopic gastrostomy) status (Chronic) Tobacco dependence in remission (Chronic) Pulmonary nodule, left (Chronic) History of laryngeal cancer (Chronic) Non-small cell carcinoma of left lung, stage 3 (Chronic) Dysphagia (Chronic) Chronic anemia (Chronic) Atrial fibrillation and flutter (Chronic) Pleural effusion (Chronic) Chemotherapy management, encounter for (Chronic) Hospital Course and Treatment Imaging Results: CT/Abdomen/Pelvis WITH Contrast IMPRESSION: Large amount of fecal material in the right hemicolon. Left pleural effusion with consolidation in the left lower lobe. Left renal cyst. Distended urinary bladder. RAD/Acute Abdomen Inc Chest IMPRESSION: Large amount of fecal material is seen in the colon. Stable pleural parenchymal changes at the left lung base. Consults: Oncology -[place] Operations: None Procedures: None Summary of Care Provided: Physical exam on day of discharge: General: Resting comfortably NAD Psych: A/Ox3 normal affect HEENT: PEARRLA AT NC Neck: Supple NT CV: RRR no m/t/r/g/h Resp: CTA Abd: [id number] Soft NT no guarding or rigidity Ext: DP2+= no edema Skin: W/D normal turgor Lymph/Heme: No active bleeding or adenopathy Neuro: CN2-12 intact Hospital course: The patient is a 62 year old M with history as above currently on chemotherapy for non-small cell lung cancer with laryngeal cancer, who presented to the emergency room with upper abdominal pain. Imaging revealed severe constipation. Initially there was concern for possible developing infiltrate on CAT scan however this was consistent with prior known lung cancer. He was also found to be pancytopenic. He was admitted to the PCU, oncology was consulted, and started on oral laxatives. By the following morning he had 2 large bowel movements with improvement in his abdominal pain. It was felt that his constipation was likely 2/2 chronic opiate use. He received a dose of Shad X per oncology, and they advised for him to continue grindings until his absolute neutrophil count is greater than 1000 for 3 days. His hemoglobin did drop below 7 so 1 unit of blood was transfused. He was discharged home in stable condition. Please follow up with oncology tomorrow, and see your PCP in 2 weeks. This patient was seen by Robbi Pathak PA-C under the supervision of Doctor Milind. [] Discharge Diet: No Restrictions Discharge Activity: Return to Normal Activity Home Medications: Medications to take at Discharge Albuterol IH (ProAir) [Proair Hfa] 2 puff INHALATION Q6H PRN #1 inhaler 12/18/17 Oxycodone HCl/Acetaminophen [Percocet 5-325] 1 tab PO Q6H PRN #90 tab 12/18/17 Ferrous Sulfate 325 mg GT BIDCM #90 tab 12/26/17 levothyroxine 150 mcg tablet 150 mcg PO DAILY tab 12/29/17 omeprazole 20 mg capsule,delayed release 20 mg PO DAILY PRN cap 01/09/18 Clonazepam 0.5 mg PO DAILY 01/12/18 Diltiazem HCl 60 mg PO BID 01/12/18 Polyethylene Glycol 3350 [Miralax] 17 gm GT DAILY PRN PRN 01/12/18 Senna/Docusate Sodium [Senokot-S] 1 tab GT BID #60 tab 01/13/18 Tbo-Filgrastim [Granix] 300 mcg SC DAILY #5 vial 01/13/18 Following Prescrptions Were Given to Patient: Tbo-Filgrastim [Granix] 300 mcg SC DAILY #5 vial Senna/Docusate Sodium [Senokot-S] 1 tab GT BID #60 tab Primary Care Physician: Alfred Sarmiento NP-C [Primary Care Provider] - Please follow up with your Primary Care Physician in: 1-2 weeks Please Follow Up With: Alfred Sarmiento NP-C Please Follow Up With: Serina Hollingsworth MD When: 1 day Disposition: Home Minutes spent on discharge:: 35 Patient Condition:: Stable Medical Necessity - Tobacco Use Smoking Status: Former smoker Tobacco Use: Cigarettes Meaningful Use Info Meaningful Use Diagnoses (Choose all that apply): None applicable <Aminah Vaz - Last Filed: 01/13/18 17:44> Discharge Date and Diagnosis - Primary Discharge Diagnosis Active and Suspected Problems (Last Updated 01/12/18 @ 16:49 by Serina Hollingsworth MD) Constipation (Acute) Pancytopenia (Acute) Abdominal pain (Acute) Pain (Acute) - Secondary Discharge Diagnosis Chronic Problems (Last Updated 01/12/18 @ 16:49 by Serina Hollingsworth MD) PEG (percutaneous endoscopic gastrostomy) status (Chronic) Tobacco dependence in remission (Chronic) Pulmonary nodule, left (Chronic) History of laryngeal cancer (Chronic) Non-small cell carcinoma of left lung, stage 3 (Chronic) Dysphagia (Chronic) Chronic anemia (Chronic) Atrial fibrillation and flutter (Chronic) Pleural effusion (Chronic) Chemotherapy management, encounter for (Chronic) Hospital Course and Treatment Summary of Care Provided: Patient seen by Robbi Corral PA-C under my supervision. The patient is a 62 year old M with a history of laryngeal cancer, lung cancer on chemotherapy was admitted via the ED with complaint of upper abdominal pain a few days. Labs were remarkable for pancytopenia with severe neutropenia of 0.1. CT of the abdomen was essentially benign for abdominopelvic pathology but revealed possible infiltrate in the left lower lobe of the chest. He was therefore initially admitted to be managed for health associated pneumonia. Upon admission however on further review of the CT and previous CTs, consolidation had been persistent was consistent with known lung cancer. Abdominal x-rays done showed large stool burden. Patient was therefore managed for constipation likely due to chronic opioid use on account of cancer. He was also managed for pancytopenia due to chemotherapy and cancer. He was started on Granix SC. He was put on oral laxatives and the following day he had 2 large bowel movements and felt that the abdominal pain had been relieved. Patient's hemoglobin dropped to 6.9 and so he was transfused 1 unit of blood. Patient remained stable and was would have preferred to keep him for 1 more day to check if his hemoglobin had come up after transfusion, patient insisted on going home after transfusion. He is to continue with his chronic's for 5 days and is to follow-up with his primary care doctor and oncologist in 1 week and to check his CBC in one week. Was also given a prescription for oral laxatives to help with his bowel regimen. Patient seen and examined prior to discharge. He had no complaints and felt well. He denies any fever or chills, cough or chest pain, shortness of breath, any abdominal pain, any diarrhea vomiting. Review of systems is otherwise negative. o/e: Vitals: Vital Signs Height 5 ft 7 in General: Alert, Oriented x3, Cooperative, No apparent distress HEENT: Atraumatic, PERRLA, EOMI, - - nontender, firm fullness over right side of neck Oral: Moist Mucosa Neck: Supple, No JVD, Negative Carotid Bruits Lungs: - - decreased breath sounds bibasally, with no crackles or wheezing. Cardiovascular: Regular rate, Regular Rhythm, Normal S1, Normal S2, No murmurs Abdomen: Bowel Sounds Present, Soft, Non Tender, Non-Distended, No Hepato-splenomegaly, - - PEG tube. Extremities: No clubbing, No cyanosis, No edema, Capillary Refill Less than 3 Seconds Skin: No rashes, No breakdown Musculoskeletal: No Tenderness to Palpation of Joints or Extremities Lymphatic: No Cervical, Supraclavicular, or Inguinal Adenopathy Neurological: Cranial nerves II-XII grossly intact, Motor Exam 5/5 strength throughout Psych/Mental Status: Normal Affect, Appropriate, Alert and oriented to time, place, person, mood and affect Comment: Left chest mediport Plan as stated above. Agree with Robbi Pathak PA-C's note, assessment and plan. [] Code Visit Inpatient E AND M: [id number] Disch Hosp 01/13/18 1525 <Electronically signed by Robbi GUTHRIE> Date Robbi GUTHRIE 01/13/18 1744<Electronically signed by Aminah Vaz MD> Cosigner Signature (if applicable): Date Aminah Vaz MD CC: ROYCE Sarmiento; JERRI Pathak; Aminah Vaz MD Signed DISCHARGE INSTRUCTION Observed: 01/13/2018 Status: F Source: [place] 4:13 PM [facility] REPOSITORY [facility] Medical Records Department [address] [place] [address] Instructions for Home/Discharge Instructions 01/13/18 1151 MR#: [id number] Acct: [id number] Name: MARNITOMY Tai Rep #: [id number] : 1955 62 From: Robbi GUTHRIE PCP: ROYCE Montero Status: ADM IN ADDENDUM by JERRI Pathak on 01/13/18 at 1613 Added granix 300 sq daily for 5 days, sennokot BID, and CBC in 7 days for discharge. Date Robbi Pathak cc: ROYCE Sarmiento; Serina Hollingsworth MD * Signed - Discharge Diagnoses Current Active Problems: Current Active and Chronic Problems (Last Updated 01/12/18 @ 16:49 by Serina Hollingsworth MD) Constipation (Acute) Pancytopenia (Acute) Abdominal pain (Acute) Pain (Acute) You will use the following diet at home:: No restrictions, Other - PEG feedings as previously directed Your food should be the consistency of: Regular Your liquids should be the consistency of: Regular/Thin Discharge Activity: Return to Normal Activity Allergies/Adverse Reactions: Allergies Iodinated Contrast- Oral and IV Dye [CT] Allergy (Mild, Verified 01/09/18 10:57) Rash Medications to take at Discharge Albuterol IH (ProAir) [Proair Hfa] 2 puff INHALATION Q6H PRN #1 inhaler 12/18/17 Oxycodone HCl/Acetaminophen [Percocet 5-325] 1 tab PO Q6H PRN #90 tab 12/18/17 Ferrous Sulfate 325 mg GT BIDCM #90 tab 12/26/17 levothyroxine 150 mcg tablet 150 mcg PO DAILY tab 12/29/17 omeprazole 20 mg capsule,delayed release 20 mg PO DAILY PRN cap 01/09/18 Clonazepam 0.5 mg PO DAILY 01/12/18 Diltiazem HCl 60 mg PO BID 01/12/18 Polyethylene Glycol 3350 [Miralax] 17 gm GT DAILY PRN PRN 01/12/18 Primary Care Physician: Alfred Sarmiento NP-C [Primary Care Provider] - Please follow up with your Primary Care Physician in: 1-2 weeks Test Results: Test results from this visit will be discussed in further detail at your follow-up appointment, if applicable. Please Follow Up With: Alfred Sarmiento NP-C Please Follow Up With: Serina Hollingsworth MD When: 1 day Proposed Discharge Date: 01/13/18 01/13/18 1155 <Electronically signed by Robbi GUTHRIE> Date Robbi GUTHRIE CC: ROYCE Hollingsworth MD END OF TREATMENT Observed: 01/13/2018 Status: F Source: [place] SUMMARY 2:50 PM [facility] REPOSITORY [facility] [place] [address] End of Treatment Summary Date of Service: 01/13/18 1422 MR#: [id number] Acct: [id number] Name: TOMY MUNSON Rep #: [id number] : 1955 From: Vish Crespo DO Age/Sex: 62/M Location: [facility] Status: Signed End of Treatment Summary: Diagnosis: Tomy Munson is a 61-year-old male previously treated for 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 Unfortunately due to treatment delays the lung cancer appears to have progressed and caused complete collapse of the left lung romeo and interventional pulmonology was unable to place stent. Oncologic History: 06/19/2015: Patient underwent direct laryngoscopy with biopsy of the supraglottic mass which demonstrated invasive moderately differentiated squamous cell carcinoma (p16 negative). 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 From 07/04/15- 08/25/15 he received 7104 cGy in 36 fractions. Chemotherapy was given from 07/04/2015 through 08/09/2015 and consisted of 3 cycles of 100 mg/m cisplatin. 12/23/2016: CT chest with contrast was performed which demonstrated a 1.5 x 1.4 cm noncalcified nodule in the peripheral aspect of the superior segment of the left lower lobe as well as a 5.3 mm noncalcified nodule in the posterior medial segment of the left lower lobe. 01/02/2017: Patient underwent CT-guided biopsy of the left lower lung mass which demonstrated evidence for pneumocyte to hyperplasia with mild atypia but no evidence of malignancy in the submitted specimen. 04/07/2017: CT chest with contrast was performed which showed that the previously seen spiculated mass in left lower lobe had enlarged and now measures 2.04 x 1.72 cm, there is a slightly enlarged small indistinct nodular density in the right upper lobe medially posterior to the trachea which measures 0.46 cm and on the previous exam measured 0.3 cm, there is a lymph node anterior to the right mainstem bronchus which on short axis measures 0.95 cm and previously was 0.65 cm, enlarged left hilar lymph node measuring 1.1 cm is new. 07/07/2017: CT chest with contrast was performed which demonstrated a 2.4 x 1.2 cm lobulated irregular nodular density in the peripheral aspect of the left lower lobe which has increased in size from the previous study, a prominent left hilar lymph node is measured at 2.2 cm. 09/16/2017: CT chest with contrast was performed and demonstrated that the left lower lobe nodular density measuring 3.5 x 2.5 cm and previously measured 2.4 x 1.2 cm, there is a new left infrahilar mass measuring about 4.2 by 3.4 cm resulting in complete occlusion of the right lower lobe bronchus with extension into the segmental bronchi of the right lower lobe. 09/26/2017: Bronchoscopy with EBUS was performed. There was noted to be a large circumferential endobronchial lesion noted at the bifurcation of the left upper and left lower lobes and this lesion appeared to nearly completely obstructed orifice of the left lower lobe takeoff. On ultrasound this lesion measured at least 3.5 x 4.5 cm and several biopsies were obtained. Pathology demonstrated fragment of necrotic material with atypical squamous cells suspicious for carcinoma (CK7 weakly positive, CK20/TTF1/p16 all negative). 10/14/2017: MRI brain was completed which showed no evidence for intracranial metastatic disease. 10/16/2017: PET scan was performed which showed evidence for persistent and newly defined increased glucose concentration manifest in the left mid lower posterior, posterior lateral hemithorax pulmonary parenchyma with a calculated SUV of 12.7, newly defined increased glucose concentration manifest in the precarinal posterior mediastinum and left thoracic perihilum. There is interim metabolic resolution of the previously identified left lower lobe pulmonary parenchymal as well as laryngeal structure hypermetabolic abnormalities. 11/07/2017: Patient underwent ultrasound-guided thoracentesis and 530 mL of blood-tinged fluid was drained, there were no malignant cells identified in the retreat fluid. 11/10/2017: Patient was admitted after returning to the hospital with increasing shortness of breath over the weekend. 11/11/2017: Left tunneled Pleurx catheter was placed 11/12/2017: CT chest without contrast was performed which demonstrated progressive opacification of the left hemithorax with only a small amount of aeration within the left upper lobe, ill-defined hilar density consistent with the previously identified mass/adenopathy, volume loss within the left chest with mediastinal shift towards the left, small nodular density along the right side of the trachea which may represent adherent debris or mass, complete occlusion of the left mainstem bronchus, small left pleural effusion with pleural catheter in place. 11/13/2017: Due to the need for interventional pulmonology consultation the patient was transferred to [facility] to attempt bronchoscopy and stent placement. Mucous plugging and tumor were noted in the left mainstem bronchus, an endobronchial stent was placed but then removed due to suboptimal position and therefore he was sent back to the ICU and extubated and then discharged on 11/14/2017. The patient completed a course of external beam radiotherapy in our department. This treatment was delivered for curative intent. Treatment was given according to the following parameters: TOMY MUNSON received 6000 cGy of 6 MV photons in 30 fractions to the Left lung and hilum disease with a VMAT technique consisting of 2. On the initial treatment plan the left lung was collapsed and as the lung expanded a re-simulation was completed given the volume changes in order to treat him for the final 16 treatments. Plan some was completed to ensure no overlap with the previous head and neck radiation. The patient did receive concurrent chemotherapy with weekly carbo/taxol. Date of First Treatment: 11/25/17 Date of Last Treatment: 01/12/18 Total Elapsed Days (including weekend and holidays): 48 Missed Treatments: 5, Radiation therapy was held from 12/08- 12/12 due to severe neutropenia. Response and Tolerance: The patient tolerated this course of radiotherapy fairly well overall. The following radiation related toxicities developed during the course of radiation therapy: * Grade 1 fatigue * Grade 1 esophagitis toxicity which was treated with MMW, only takes water by mouth due to chronic PEG and swallowing dysfunction. From 12/07-12/13 he was admitted to the hospital for neutropenia and diagnosed with MRSA infected chest tube which was removed. He reports increased fatigue but is improving since discharge. CT chest on 12/11 showed continued consolidation in the left lower hemithorax but improvement elsewhere. Radiation therapy was held from 12/08-12/12 due to the neutropenia. From 12/24 - 12/26: He was admitted for A. fib with RVR with rate in the 160s. This corrected with Cardizem and he was discharged with Cardizem per day and aspirin as he is not able to take blood thinners. He also was noted to have a borderline elevated troponin which was attributed to the A. fib with RVR, stress test and echo were normal with EF of 75%. Total weight change during therapy: gained 1 lb, PEG dependent and can only swallow fluids by mouth due to previous head and neck irradiation and chronic PEG use. Disposition: The patient tolerated the planned course of radiation therapy well without unexpected toxicity in an appropriate time course. He did miss one week of treatment due to severe neutropenia. I will have the patient follow-up in 4 weeks for a routine visit to assess resolution of radiation toxicity and he will see Dr. Leigh on 01/15/18 to determine if consolidative chemotherapy will be given. The patient will maintain scheduled follow-up visits with the other providers. If we can provide any further information on this patient's course of care, please do not hesitate to ask. We would like to thank you very much for allowing us to participate in the care of this patient. Sincerely, Vish Crespo DO, MS [employer], Department of Radiation Oncology [facility] 01/13/18 1458 <Electronically signed by Vsih Crespo DO> Date Vish Crespo DO Cosigner Signature: Date (if applicable) CC: CAD ENGINEERWin Sarmiento; Nino Leigh MD TYPE AND SCREEN Collected: 01/13/2018 Status: F Source: GIANNA 12:50 PM [facility] REPOSITORY Order Comment: CMV NEG? Y Number of units to transfuse: 1 Is pt's Hgb is </= to 7.0 mg/dl or Hct </= 21%? Y Reason for Ordering Blood: Chronic Are the blood/blood products to be transfused? Y Is the patient having/had surgery? N Give When? When Ready Irradiated? Y Leukodepleted? Y TYPE CODE TESTS RESULT OUT OF RANGE REFERENCE UNITS LAB B10.0800 O Normal BLOOD TYPE GEL NEGATIVE LAB B100.4000 Normal Antibody NEGATIVE Screen Performed By: #### B101.7450 #### [facility] [address] [place], [address] Collected: 01/13/2018 Status: F Source: GIANNA 12:50 PM [facility] REPOSITORY TYPE CODE TESTS RESULT OUT OF REFERENCE UNITS RANGE LAB U100.0000 [id number] TRANSFUSED PRODUCT: T AND S with Crossmatch, Red Cells COUNT: 1 Performed By: #### U100.0000 #### [facility] - refer to report for specific site BASIC METABOLIC Collected: 01/13/2018 Status: F Source: GIANNA PROFILE (BMP) 4:55 AM [facility] REPOSITORY Order Comment: SPECIMEN OBTAINED FROM LINE DRAW TYPE CODE TESTS RESULT OUT OF RANGE REFERENCE UNITS LAB L501.0100 74-106 mg/dL Normal GLU 101 Result Comment: Fasting Glucose result from 100 to 125 mg/dL suggests IMPAIRED HOMEOSTASIS per A.D.A. criteria. Please note revised GLUCOSE reference range effective 2017. LAB L501.1000 7-18 mg/dL Normal BUN 17 LAB L501.1100 0.70-1.30 mg/dL Normal CREAT,SERUM 0.72 Result Comment: The validity of the calculated GFR AND GFRAA in patients over 70 years has not been determined. Clinical correlation is essential. LAB L501.1110 >60 mL/min Normal EST GFR 117 Result Comment: Non- GFR Calc LAB L501.1115 >60 mL/min Normal EST GFR - AA 141 Result Comment: GFR Calc LAB L501.1255 ml/min Normal Estimated CRCL 85.79 LAB L501.1300 10-20 RATIO High BUN/CRE 23.5 LAB L501.2200 8.5-10 mg/dL Low .1 CA 8.4 LAB L501.5300 136-14 mmol/L Normal 5 NA 138 LAB L501.5600 3.5-5. mmol/L Normal 1 K 4.2 LAB L501.5900 98-107 mmol/L Normal CL 98 LAB L501.6100 21.0-3 mmol/L Normal 2.0 CO2 31.0 LAB L501.6200 5-15 Normal GAP 9 Performed By: #### L500.2500 #### [facility] [address] [place], [address] CBC W/DIFF, AUTOMATED Collected: 01/13/2018 Status: C Source: GIANNA 4:55 AM [facility] REPOSITORY Order Comment: SPECIMEN OBTAINED FROM LINE DRAW TYPE CODE TESTS RESULT OUT OF RANGE REFERENCE UNITS LAB L100.1000 4.4-11.0 K/mm3 Low alert WBC 1.0 Result Comment: CRITICAL VALUE VERIFIED. CALLED TO BRANDEN LICONA 01/13/18 0545 Rebeccaveronica Sellers. RESULTS READ BACK BY SAME . LAB L100.1200 4.6-6.2 M/mm3 Low RBC 2.26 LAB L100.1300 13.0-16.5 g/dl Low HGB 6.9 LAB L100.1400 40-54 % Low HCT 21.0 LAB L100.1500 80-94 fL Normal MCV 92.9 LAB L100.1600 27.0-32.0 pg Normal MCH 30.5 LAB L100.1700 32-36 g/gl Normal MCHC 32.9 LAB L100.1810 11.6-14.6 % High RDW 23.6 CV LAB L100.1820 35.1-43.9 fl High RDW 77.3 SD LAB L100.1900 150-450 K/mm3 Low PLT 53 LAB L100.2000 6.2-12.0 fl Normal MPV 9.9 LAB L100.2100 47-70 % Normal NEUT% 66.0 LAB L100.2200 19-41 % Low LY% 7.8 LAB L100.2300 0-10 % High MONO% 26.2 LAB L100.2400 0-5 % Normal EO% 0.0 LAB L100.2500 0-1 % Normal BASO% 0.0 LAB L100.2550 0.0-0.9 % Normal IM 0.000 GRAN % Result Comment: IG% - Immature Granulocytes (promyelocytes, myelocytes and metamyelocytes) > 1% indicates that a LEFT SHIFT is Present. LAB L100.2620 2.0-7.7 X10 3/uL Low Absolute Neut 0.7 LAB L100.2720 0.83-4.51 X10 3/ul Low Absolute Lymph 0.08 LAB L100.4500 SMEAR COMMENT Normal SCAN LAB L100.7300 ANISO Normal 1+ LAB L100.7500 POLYCHROMASIA Normal 1+ LAB L100.7600 HYPOCHROMASIA Normal 2+ LAB L100.7700 MICROCYTES Normal 1+ LAB L100.9900 PATH REV Normal Reviewed Result Comment: Pancytopenia. Leukopenia. Normocytic anemia. Marked Thrombocytopenia. Clinical correlation necessary. Huber Maldonado D.O. 01/13/18 AMENDED REPORT 01/13/18 1244 PATH REV previously reported as: September Performed By: #### L100.0100 #### [facility] [address] Observed: 01/12/2018 Status: F Source: [place] LEGIONELLA ANTIGEN 7:10 PM [facility] URINE REPOSITORY Legionella, UR Legionella Antigen result interpretation: Negative Presumptive negative for Legionella pneumophila serogroup 1 antigen in urine, suggesting no recent or current infection. . Legionella Ag, Urine Negative (See interpretation below) Performed By: #### M300.4500 #### [facility] [address] [place] [address], [address] STREP Observed: 01/12/2018 Status: F Source: [place] PNEUMONIAE ANTIG(UR,CSF) 7:10 PM [facility] REPOSITORY S pneumo Ag [] Negative Urine Presumptive negative for pneumococcal pneumonia, suggesting no current or recent pneumococcal infection. Infection due to S pneumoniae cannot be ruled out since the antigen present in the sample may be below the detection limit of the test. Strep pneumo Test Negative URINE (See interpretation below) Performed By: #### M300.4600 #### [facility] [address] [place], [address] HISTORY AND PHYSICAL Observed: 01/12/2018 Status: F Source: [place] EXAM 6:09 PM [facility] REPOSITORY [facility] Medical Records Department [address] [place] [address] History and Physical 01/12/18 1426 MR#: [id number] Acct: [id number] Name: TOMY MUNSON Rep #: [id number] : 1955 62 From: Aminah Vaz MD PCP: ROYCE Montero Status: ADM IN Location: [facility] [id number] Problem List (1) Abdominal pain Status: Acute History of Present Illness Date of Admission: 01/12/18 Chief Complaint: upper abdominal pain The patient is a 62 year old M with a history of laryngeal cancer, non-small cell carcinoma of the left lung, A. fib and hypothyroidism. He was admitted by the ED on 01/12/2018 after he presented with a complaint of upper abdominal pain of a couple of days duration. Pain was sharp, nonradiating, with no aggravating or relieving factors. He denied any fever or chills, any cough or chest pain, any shortness of breath, any diarrhea vomiting. He had his last session of chemotherapy today and decided coming to the ED to be checked out for the abdominal pain. As part of the workup, CAT scan was done which picked up right lower lobe infiltrate. He was therefore admitted to be managed for pneumonia. Vitals done in the ED showed blood pressure of 114/78, temperature of 98.5 Fahrenheit, pulse rate of 94 and respiratory rate of 15 and he was saturating at 94% on room air. Labs were significant for sodium of 133, bicarb of 33, WBC of 0.4, hemoglobin of 7.3 and platelets of 38. He was started on IV ceftriaxone and IV azithromycin. [] Past Medical History Past Medical History (Chronic Problems): Chronic Problems (Last Updated 01/12/18 @ 16:49 by Serina Hollingsworth MD) PEG (percutaneous endoscopic gastrostomy) status (Chronic) Tobacco dependence in remission (Chronic) Pulmonary nodule, left (Chronic) History of laryngeal cancer (Chronic) Non-small cell carcinoma of left lung, stage 3 (Chronic) Dysphagia (Chronic) Chronic anemia (Chronic) Atrial fibrillation and flutter (Chronic) Pleural effusion (Chronic) Chemotherapy management, encounter for (Chronic) Medical History: Medical History (Last Updated 01/12/18 @ 16:49 by Serina Hollingsworth MD) Pain (Acute) R52 PEG (percutaneous endoscopic gastrostomy) status (Chronic) Z93.1 Tobacco dependence in remission (Chronic) F17.201 Pulmonary nodule, left (Chronic) R91.1 History of laryngeal cancer (Chronic) Z85.21 Non-small cell carcinoma of left lung, stage 3 (Chronic) C34.92 Dysphagia (Chronic) R13.10 Chronic anemia (Chronic) D64.9 Atrial fibrillation and flutter (Chronic) I48.91, I48.92 Pleural effusion (Chronic) J90 Chemotherapy management, encounter for (Chronic) Z51.11 Anemia D64.9 Chicken pox B01.9 Dysphagia R13.10 Hypernatremia E87.0 Hyponatremia E87.1 Hypothyroidism E03.9 Laryngeal cancer C32.9 Lymphadenitis I88.9 Measles B05.9 Mumps B26.9 Allergies Iodinated Contrast- Oral and IV Dye [CT] Allergy (Mild, Verified 01/09/18 10:57) Rash Home Medications: Ambulatory Orders Medication Instructions Recorded Albuterol IH (ProAir) [Proair Hfa] 2 puff INHALATION Q6H PRN #1 12/18/17 Oxycodone HCl/Acetaminophen 1 tab PO Q6H PRN #90 tab 12/18/17 Surgical History: Surgical History (Last Updated 01/09/18 @ 10:58 by Edna Mc) Status post insertion of percutaneous endoscopic gastrostomy (PEG) tube Z93.1 port placement History of hernia repair Z98.890, Z87.19 History of thoracentesis Z98.890 LEFT WRIST SURGERY Surgical History: herniorrhaphy, - - PEG tube placement. Psychiatric History: Anxiety Smoking Status: Former smoker - *Family History Paternal Family History: Family History (Last Reviewed 01/08/18 @ 09:29 by Carlota Miguel) Father Heart disease History Items: Heart Disease - Maternal Family History: Family History (Last Reviewed 01/08/18 @ 09:29 by Carlota Miguel) Father Heart disease History Items: No pertinent history Review of Systems Constitutional: Denies: Chills, Fever, Malaise, Weight Change HEENT: Denies: Head Aches, Sinus Congestion, Sinus Drainage Cardiovascular: Denies: Chest Pain, Chest Pressure, Heaviness, Palpitations Respiratory: Reports: Cough, Shortness of breath upon exertion, Sputum production. Denies: Shortness of Breath, Shortness of breath at rest Gastrointestinal: Reports: Abdominal Pain. Denies: Constipation, Diarrhea, Dyspepsia, Nausea, Vomiting Genitourinary: Denies: Dysuria Musculoskeletal: Denies: Joint Pain, Joint Tenderness Skin: Denies: Dryness, Rash, Wounds Neurological: Denies: Numbness, Tingling, Focal weakness Psychiatric: Denies: Anxiety, Depression, Homicidal Ideations, Suicidal Ideations Hematologic/ Lymphatic: Denies: Easy Bruising, Easy Bleeding VTE Information - Inpt Only VTE Present on Admission: No VTE Mechan Device Prophylaxis: SCD's VTE Pharm Prophylaxis ordered?: No Reason prophylaxis not ordered:: Medical Contraindication - thrombocytopenia Patient Problems: Active and Suspected Problems (Last Updated 01/12/18 @ 16:49 by Serina Hollingsworth MD) Constipation (Acute) Pancytopenia (Acute) Abdominal pain (Acute) Pain (Acute) - Physical Exam General: Alert, Oriented x3, Cooperative, No apparent distress HEENT: Atraumatic, PERRLA, EOMI, - - nontender, firm fullness over right side of neck Oral: Moist Mucosa Neck: Supple, No JVD, Negative Carotid Bruits Lungs: - - decreased breath sounds bibasally, with no crackles or wheezing. Cardiovascular: Regular rate, Regular Rhythm, Normal S1, Normal S2, No murmurs Abdomen: Bowel Sounds Present, Soft, Non Tender, Non-Distended, No Hepato-splenomegaly, - - PEG tube. Extremities: No clubbing, No cyanosis, No edema, Capillary Refill Less than 3 Seconds Skin: No rashes, No breakdown Musculoskeletal: No Tenderness to Palpation of Joints or Extremities Lymphatic: No Cervical, Supraclavicular, or Inguinal Adenopathy Neurological: Cranial nerves II-XII grossly intact, Motor Exam 5/5 strength throughout Psych/Mental Status: Normal Affect, Appropriate, Alert and oriented to time, place, person, mood and affect Comment: Left chest mediport Vital Signs Temp Pulse Resp BP Pulse Ox 98.5 F 87 16 124/84 H 96 01/12/18 09:38 01/12/18 12:23 01/12/18 12:23 01/12/18 12:23 01/12/18 12:23 Oxygen Delivery Method Room Air Weight: 126 lb Body Mass Index (BMI) 19.7 Laboratory Tests Past 24 Hrs WBC 0.4 L* RBC 2.38 L Hgb 7.3 L Hct 22.2 L MCV 93.3 Assessment/Plan All Active Problems (Last Updated 01/12/18 @ 16:49 by Serina Hollingsworth MD) Constipation (Acute) Pancytopenia (Acute) Abdominal pain (Acute) Pain (Acute) 60-year-old male with a history of laryngeal cancer non-small cell lung cancer presenting with upper abdominal pain of [address] picked up right lower lobe consolidation. 1. ? Health associated pneumonia * denies any fever, chills or cough. ONly had right upper quadrant and left upper quadrant pain of a few days' duration * SIRS criteria 05/22 (for leucopenia) * CT abdomen/pelvis showed small left pleural effusion and consolidation in left lower lobe * will admit to PCU with telemetry * blood cultures, urine for strep and legionella antigens and urine cultures * received IV ceftriaxone and IV azithromycin. * will give Granix for neutropenia * patient has no symptoms whatsoever pointing towards a pneumonia. Review of previous CT scans showed a left lower lobe mass which was diagnosed to be the NSCLC. * CT chest with contrast (12/03) showed a significant consolidation and effusin of hte inferior polse of the left lower lobe. I think this is the same mass that was picked up on the abdominal CT scan. * since this consolidation was diagnosed per CT abdomen/pelvis, will get a CT chest to further delineate it, to be sure it is not the lung mass. * will hold off on antibiotics for now and await culture results * 2. Pancytopenia * wbc is 0.4, Hb is 7.4, and platelets-38 * will give SC granix 300mcg daily * will consult oncology * will hold off on platelet transfusion for now * 3. Slow transit constipation likely due to opioid use * abdominal series showed large amounts of stool * on opioids for pain from cancer * likely cause of abdominal pain * will start oral laxatives; no enemas due to pancytopenia * 4. Chronic hyponatremia * Na is 133 * will monitor * 5. Laryngeal cancer and nonsmall cell lung cancer * had last radiation therapy today * last chemo session 2 weeks ago was deferred o/a of leucopenia * due to have next chemo session on * 6. Hypothyroidism: on synthroid 7. Afib: controlled. On cardizem. DVT prophylaxis: SCDs. Code status: full code. Patient counselled about different types of code status and their meanings. He was counselled about difference between Full code, DNRCC and DNRCCA. Patient elects to be full code. Total face to face time: 18 minutes This note was generated with [employer] software. It may contain incorrect words, spelling, and punctuation that were not noted in checking the note before signing. Code Visit Inpatient E AND M: 48162 Subs Hosp L3 Procedures: 54887 Advncd Care Plan 30 Min 01/12/18 1809 <Electronically signed by Aminah Vaz MD> Date Aminah Vaz MD Cosigner Signature: Date (if applicable) CC: ROYCE Sarmiento; Aminah Vaz MD Signed CONSULTATION Observed: 01/12/2018 Status: F Source: [place]ER 5:[address] [facility] Medical Records Department [address] [place] [address] Consultation 01/12/18 1649 MR#: [id number] Acct: [id number] Name: TOMY MUNSON Rep #: [id number] : 1955 62 From: Serina Hollingsworth MD PCP: ROYCE Montero Status: ADM IN Location: [place] [id number] - Problem List (1) Non-small cell carcinoma of left lung, stage 3 Status: Chronic (2) Pancytopenia Status: Acute (3) Abdominal pain Status: Acute (4) Constipation Status: Acute Consult Referring Physician: Hospitalist service Consult Results: Lung cancer, pancytopenia, abdominal pain, constipation Subjective Date of Service:: 01/12/18 Chief Complaint: Abdominal pain History of Present Illness: Patient is a 62-year-old male with stage IIIb non-small cell lung cancer on combined chemoradiation last chemotherapy was January 01, 2018 last radiation was today January 12, 2018. Patient admitted with increasing abdominal pain over the past 3 days, no nausea or vomiting, he has been constipated for at least 4 days. No fever, no increasing dyspnea, has a chronic cough no change in character and no sputum production. Past Medical History: Chronic Problems (Last Updated 01/12/18 @ 16:49 by Serina Hollingsworth MD) PEG (percutaneous endoscopic gastrostomy) status (Chronic) Tobacco dependence in remission (Chronic) Pulmonary nodule, left (Chronic) History of laryngeal cancer (Chronic) Non-small cell carcinoma of left lung, stage 3 (Chronic) Dysphagia (Chronic) Chronic anemia (Chronic) Atrial fibrillation and flutter (Chronic) Pleural effusion (Chronic) Chemotherapy management, encounter for (Chronic) Past Medical/Surgical History: Past Medical History - Most Recent Inpatient Visit Past Medical History Start: 01/12/18 14:47 Text: Status: Complete Freq: Protocol: Document 01/12/18 14:47 [facility] (Rec: 01/12/18 14:53 [facility] [id number]) BMI Required to complete PMH What is Patient's BMI 19.7 Past Medical History Unable History Recalled No Query Text:Pt Unable/Family Not Present Neurologic Medical History Hx Stroke/TIA No Hx Dementia/Alzheimer's No Hx Parkinson's Disease No Hx Seizures No Hx Multiple Sclerosis No Hx Migraines No Cardiac Medical History VTE Present on Admission No Hx of Deep Vein Thrombosis/VTE/PE No Hx Hypertension No Hx Chest Pain/Angina Yes Hx Heart Attack No Hx Cardiac Surgery/Stents/Etc. No Hx Heart Failure No Hx Pacemaker/AICD No Hx Irregular Heartbeat and/or Afib Yes Hx Anticoagulant Therapy No Query Text:(Coumadin, Aspirin, Plavix, Xarelto, etc.) Hx Pain in Legs when Walking/Leg Cramps No Respiratory Medical History Hx COPD No Hx Emphysema No Hx Smoking Yes: QUIT 2014 Smoking Status Former smoker Tobacco Use Cigarettes Hx Smoking Cessation Counseling Yes Hx Smoking Exposure Yes Hx Tobacco Use in last 12 months No Hx of Pipe Smoking No Hx Sleep Apnea No: . CPAP No BIPAP No Do you snore loudly (louder than talking No or can be heard through closed doors)? Do you often feel tired/ fatigued/ Yes sleepy during daytime? Has anyone observed you stop breathing No during sleep? STOP Results Negative GI Medical History Hx Ulcer No Hx Hepatitis No Hx Cirrhosis No Hx GI Bleed No: ESOPHAGUS STRETCHED Hx Unplanned Weight Loss Yes Genitourinary Medical History Indwelling Catheter in Place on Arrival/ No Admission Hx Renal Disease No Hx Dialysis No Musculoskeletal History Hx Arthritis Yes Hx Rheumatoid Arthritis No Endocrine Medical History Hx Diabetes No Hx Thyroid Disease Yes: ON MED Hematologic Medical History Hx of Blood Transfusion Yes Hx of Transfusion in last 3 Months Yes Date of Last Transfusion (if within last 2018 3 months) Ever experience any problems with No transfusion(s)? Hx of Preganancy in last 3 Months N/A Nurse Filling Out Transfusion AND SGESSEL Questions: Date: 01/12/18 Time: 14:50 Psycho/Social Medical History Hx Depression No Hx Anxiety Yes Hx Behavior Disorder No Hx Alcohol Use Yes: 12 BEERS /DAY QUIT 2 YRS AGO Hx Substance Use No Other Medical History Hx Blood Disorders No Hx Anemia Yes Hx Cancer Yes: throat/neck/ LUNG cancer/ RADIATION TX Hx Drug Resistant Organism Yes: MRSA Wound/Pressure Injury Present on Arrival No: TO BE ASSESSED PER PRIMARY /Admission RN Query Text:If yes, chart assessment in Shift/Clinical Findings Central Line/PICC/VAD Present on Arrival Yes /Admission Antibiotics within last 7 days? No Comments LAST CHEMO 2 WEEKS AGO Risk for Readmission Number of Risk Factors 8 At Risk for Readmission Patient is At Risk For Readmission Patient is eligible for Call Back Y Past Medical History (Last Updated 01/12/18 @ 16:49 by Serina Hollingsworth MD) Pain (Acute) PEG (percutaneous endoscopic gastrostomy) status (Chronic) Tobacco dependence in remission (Chronic) Pulmonary nodule, left (Chronic) History of laryngeal cancer (Chronic) Non-small cell carcinoma of left lung, stage 3 (Chronic) Dysphagia (Chronic) Chronic anemia (Chronic) Atrial fibrillation and flutter (Chronic) Pleural effusion (Chronic) Chemotherapy management, encounter for (Chronic) Anemia (Acute) Chicken pox (Acute) Dysphagia (Acute) Hypernatremia (Acute) Hyponatremia (Acute) Hypothyroidism (Acute) Laryngeal cancer (Acute) Lymphadenitis (Acute) Measles (Acute) Mumps (Acute) Past Surgical History (Last Updated 01/09/18 @ 10:58 by Edna Mc) Status post insertion of percutaneous endoscopic gastrostomy (PEG) tube (Chronic) port placement (Chronic) History of hernia repair (Resolved) History of thoracentesis (Resolved) LEFT WRIST SURGERY (Resolved) Paternal Family History: Family History (Last Reviewed 01/08/18 @ 09:29 by Carlota Miguel) Father Heart disease Family History: Heart Disease - Maternal Family History: Family History (Last Reviewed 01/08/18 @ 09:29 by Carlota Miguel) Father Heart disease Family History: No pertinent history - Social History Smoking Status: Former smoker Tobacco Use: Cigarettes Allergies/Adverse Reactions: Allergy/AdvReac Type Severity Reaction Status Date / Time Iodinated Contrast- Oral and Allergy Mild Rash Verified 01/09/18 10:57 IV Dye [CT] Review of Systems Constitutional:: Reports: Weakness, Fatigue, Weight loss, Appetite change. Denies: Fever, Sweats, Chills Cardiovascular:: Reports: Dyspnea on exertion. Denies: Chest pain, Palpitations, Orthopnea, PND, Shortness of breath Respiratory: Reports: Shortness of breath upon exertion. Denies: Cough, Hemoptysis, Shortness of Breath, Wheezing Gastrointestinal:: Reports: Abdominal pain - Pain in the right upper abdomen does not appear to be related to food intake., Constipation. Denies: Nausea, Vomiting, Diarrhea, Hematochezia Genitourinary: Denies: Dysuria, Hematuria, 15, Flank pain Musculoskeletal:: Denies: Back pain, Myalgia, Arthralgia Skin: Denies: Rash, Skin Changes, Wounds Neurological:: Denies: Headache, Dizziness, Visual changes, Tinnitus, Hearing loss Psychiatric: Denies: Anxiety, Depression, Homicidal Ideations, Suicidal Ideations Vital Signs Height 5 ft 7 in Weight: 57.017 kg Weight in Pounds 125.7 lbs Pulse Ox 96 - Physical Exam General: Alert, Oriented x3, No apparent distress, - - ECOG 2, cachectic, hoarse (chronic with a history of laryngeal cancer) HEENT: Atraumatic, PERRLA, EOMI, Normocephalic Oropharynx:: Dry mucosa Neck:: Supple, Trachea midline, -. Negative for: JVD, bilateral Cardiac:: Regular rate, Regular rhythm, Normal S1, Normal S2. Negative for: Murmur Lungs: Clear to auscultation, Diminished - More notably over the left lower lung zone, Excusion symmetrical. Negative for: Rhonchi, Wheezes Abdomen:: Soft, Non-tender, Non-distended, - - No peritoneal signs. Negative for: Hepatosplenomegaly Extremities:: Negative for: Cyanosis, Edema Neurological: Neuro grossly intact Skin:: Negative for: Lesions, Rash, Petechiae, Ecchymosis Psychiatric:: Appropriate affect, Euthymic Lymphatics:: Negative for: Cervical lymphadenopathy, Supraclavicular lymphadenopathy Laboratory Data: Laboratory Tests Lactic Acid 0.5 (0.4-2.0) mmol/L Diagnostic Data: Diagnostic Data Acute Abdomen Series 01/12/18 11:00 IMPRESSION: Large amount of fecal material is seen in the colon. Stable pleural parenchymal changes at the left lung base. Electronically Signed: Yosef Blevins MD at 11:27 EDT Tel [phone], Service support , Abdomen/Pelvis CT 01/12/18 11:30 IMPRESSION: Large amount of fecal material in the right hemicolon. Left pleural effusion with consolidation in the left lower lobe. Left renal cyst. Distended urinary bladder. Electronically Signed: Yosef Blevins MD at 14:07 EDT Tel [phone], Service support , Assessment and Plan 62-year-old male with: 1. Stage IIIb non-small cell lung cancer just concluded combined modality therapy (last chemo January 01, 2018, last radiation January 12, 2018). 2. Pancytopenia post chemo and radiation, await bone marrow recovery. A) prophylactic transfusion was packed red blood cells if hemoglobin less than 7 g per DL or symptomatic. B) prophylactic platelet transfusion if less than 10 K. Use nonpharmacologic VTE prophylaxis if platelets are less than 50 K C) Granix (G-CSF) 5 mg/kg (rounded to 300 mg) subcu daily until absolute neutrophil count recovery to above 1000 for 3 days. 3. Abdominal pain, acute but no evidence for an acute surgical abdomen and CT imaging is more consistent with intractable constipation. Advised oral laxative and avoid rectal route until after neutrophil recovery to minimize risk for bacteremia. 4. There is no evidence to suggest an active infection at the present time and therefore will hold off prophylactic antibiotics. 5. High risk for VTE, use nonpharmacologic prophylaxis until platelets are above 50 K. Pression and plan discussed with patient and Medications: Prescriptions This Visit Medication Instructions Recorded Clonazepam [Clonazepam] 0.5 mg PO DAILY 01/12/18 Diltiazem HCl 60 mg PO BID 01/12/18 Polyethylene Glycol 3350 [Miralax] 17 gm GT DAILY PRN PRN 01/12/18 Medications Added to Medication List This Visit 0.9% Normal Saline 1,000 ml Med 01/12/18 15:40 Active IV 100 mls/hr 0.9% Saline Lock Med 01/12/18 16:04 Active 5 - 30 ml IV UD PRN Primary Care Provider: ROYCE Montero Referring Provider: 01/12/18 1700 <Electronically signed by Serina Hollingsworth MD> Date Serina Hollingsworth MD Cosigner Signature (if applicable): Date CC: ROYCE Sarmiento; Serina Hollingsworth MD Signed LACTIC ACID Collected: 01/12/2018 Status: F Source: GIANNA 3:28 PM [facility] REPOSITORY Order Comment: Yes/No query for Sepsis Lactate Rule Y TYPE CODE TESTS RESULT OUT OF RANGE REFERENCE UNITS LAB L503.6005 0.4-2.0 mmol/L Normal LACTIC ACID 0.5 Performed By: #### L503.6005 #### [facility] [facility] [place], [address] Observed: 01/12/2018 Status: F Source: GIANNA CULTURE, BLOOD (WB) 3:28 PM [facility] REPOSITORY BC No growth in 5 days. Performed By: #### M200.1000 #### [facility] [address] [place], [address] Observed: 01/12/2018 Status: F Source: GIANNA CULTURE, BLOOD (WB) 2:40 PM [facility] REPOSITORY BC No growth in 5 days. Performed By: #### M200.1000 #### [facility] [address] [place], [address] EMERGENCY DEPARTMENT Observed: 01/12/2018 Status: F Source: GIANNA SUMMARY 2:24 PM [facility]OSP[facility] REPOSITORY [facility] Medical Records Department [address] [place] [address] Emergency Department Summary 01/12/18 1417 MR#: [id number] Acct: [id number] Name: TOMY MUNSON Rep #: [id number] : 1955 62 From: Hiro Burgess MD PCP: ROYCE Montero Status: REG ER - ER Visit Summary Date of Service: 01/12/18 Chief Complaint: Bilateral anterior chest upper abdominal pain with drinking water and no BM 4 days History of Present Illness: The patient is a 62 M who has a history 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 He states his PEG is working appropriately. He reports night sweats. He has had night sweats since diagnosis of his cancer. He does report approximately 7 pound weight loss over the past year. He does report dyspnea on exertion. Denies cough sputum production hemoptysis pleuritic chest pain. Denies leg pain, swelling discoloration. Physical Examination: Patient's vital signs were noted. He is not febrile nor is he hypoxic. HEENT exam is remarkable for pale conjunctival. Mucosa is moist. Lungs reveal no wheeze, rales or rhonchi. Heart is regular without murmur, gallop or rub. Patient has tenderness in the left upper quadrant and right upper quadrant to deep palpation only. There is no guarding or rebound tenderness. PEG is in place with no discoloration of the skin. Bowel sounds are present diminished. He is tympanitic to percussion. There is no inguinal lymphadenopathy. There is no asymmetry, swelling, discoloration, leg vein distention, palpable cords or tenderness along the distribution of the deep venous system. Neuro exam is nonfocal Test Results: Abdominal series reveals no ossific gas pattern with increased fecal matter. White count is 0.4 thousand with an absolute neutrophil count of approximately 220. H AND H 7.5 and 22.2. Because he is neutropenic with abdominal pain a CT of the abdomen and pelvis was obtained with p.o. and IV contrast. CT reveals an effusion on the left and an infiltrate. The effusion was noted on x-ray but not the infiltrate. Lactate and blood cultures were obtained and he was treated with Rocephin and azithromycin for community acquired pneumonia since he was not admitted recently. And since he has a port he received 50 mg/kg of vancomycin. Emergency Department Course and Treatment: With patient being neutropenic abdominal pain abdominal CT was obtained since there was no explanation for his pain on the abdominal series. He does have evidence of a pleural effusion. This would not explain his abdominal pain. Treatment Plan: Blood cultures, lactate and antibiotics Disposition: Admit [facility] isolation Impression: 1. Neutropenic patient 2. Community-acquired pneumonia 3. Peripneumonic effusion 4. Metastatic head and neck cancer This note was generated with [employer] software. It may contain incorrect words, spelling, and punctuation that were not noted in review of the chart prior to signing ED Disposition - Plan for ED Patient: Chief Complaint: Abd Pain Referrals: Alfred Sarmiento NP-C [Primary Care Provider] - What to do if you have Problems For any increased pain, shortness of breath, bleeding, nausea or vomiting, chest pain, or any unexpected problems, contact your Primary Care Provider. Call [facility] ([phone]) or report to the closest Emergency Room. Call 911 if necessary. 01/12/18 1424 <Electronically signed by Hiro Burgess MD> Date Hiro Burgess MD Cosigner Signature (If Indicated): Date CC: ROYCE Sarmiento; Nino Leigh MD ABDOMEN/PELVIS WITH Observed: 01/12/2018 Status: F Source: GIANNA CONTRAST 11:30 AM [facility] REPOSITORY [facility] Imaging Services [facility] [place] [address] Abdomen/Pelvis WITH Contrast MR#: [id number] Acct: [id number] Name: TOMY MUNSON Tai Rep #: [id number] : 1955 M 62 From: Yosef Blevins MD PCP: ROYCE Montero Status: REG ER Study: Abdomen/Pelvis WITH Contrast Date of Exam: 01/12/18 Exam# [id number] Ordering Dr: Hiro Burgess MD STUDY: CT ABDOMEN AND PELVIS WITH CONTRAST REASON FOR EXAM: Male, 62 years old. Right upper abdominal pain. History of esophageal cancer. PEG tube in situ. RADIATION DOSAGE (If Supplied By Facility): CTDIvol = ( 11.80 ) mGy, DLP = ( 348.03 ) mGycm TECHNIQUE: Transaxial images were obtained from the dome of the diaphragm to the symphysis pubis with oral contrast. 100mL ml of Isovue 300 contrast was administered. Sagittal and coronal images were reconstructed. Individualized dose optimization techniques were used for this CT. COMPARISON: None. FINDINGS: Small left pleural effusion with consolidation in the left lower lobe. The visualized portions of the heart are within normal limits. Normal liver. Normal gallbladder and extrahepatic biliary system. Normal spleen. Normal pancreas. Normal bilateral adrenal glands. Normal right kidney. There is a 3.2 cm x 2.5 cm cyst in the inferior anterior aspect of the left kidney. A PEG tube is seen along the anterior aspect of the body of the stomach. Normal small intestine. Moderate amount of fecal material is seen in the right hemicolon. Sigmoid diverticulosis. The appendix is visualized and appears normal. There is diffuse atherosclerotic calcification of the abdominal aorta, without a demonstrated aneurysm. Normal inferior vena cava. Normal retroperitoneum. Distended urinary bladder Normal abdominal wall. Normal osseous structures. CT/Abdomen/Pelvis WITH Contrast IMPRESSION: Large amount of fecal material in the right hemicolon. Left pleural effusion with consolidation in the left lower lobe. Left renal cyst. Distended urinary bladder. Electronically Signed: Yosef Blevins MD at 14:07 EDT Tel [phone], Service support , CC: ROYCE Sarmiento; Hiro Burgess MD [employer] Driver: Signed CBC W/DIFF, AUTOMATED Collected: 01/12/2018 Status: C Source: GIANNA 10:50 AM [facility] REPOSITORY Order Comment: CRITICAL VALUES VERIFIED. CALLED TO MARIO PASTOR 01/12/18 1105 Adrianne Scruggs. RESULTS READ BACK BY SAME . TYPE CODE TESTS RESULT OUT OF RANGE REFERENCE UNITS LAB L100.1000 4.4-11.0 K/mm3 Low alert WBC 0.4 LAB L100.1200 4.6-6.2 M/mm3 Low RBC 2.38 LAB L100.1300 13.0-16.5 g/dl Low HGB 7.3 LAB L100.1400 40-54 % Low HCT 22.2 LAB L100.1500 80-94 fL Normal MCV 93.3 LAB L100.1600 27.0-32.0 pg Normal MCH 30.7 LAB L100.1700 32-36 g/gl Normal MCHC 32.9 LAB L100.1810 11.6-14.6 % High RDW CV 23.7 LAB L100.1820 35.1-43.9 fl High RDW SD 76.9 LAB L100.1900 150-450 K/mm3 Low alert PLT 38 LAB L100.2000 6.2-12.0 fl Normal MPV 9.9 LAB L100.2100 47-70 % Normal NEUT% 51.3 LAB L100.2200 19-41 % Normal LY% 22.9 LAB L100.2300 0-10 % High MONO% 20.0 LAB L100.2400 0-5 % Normal EO% 2.9 LAB L100.2500 0-1 % High BASO% 2.9 LAB L100.2550 0.0-0.9 % Normal IM GRAN % 0.000 Result Comment: IG% - Immature Granulocytes (promyelocytes, myelocytes and metamyelocytes) > 1% indicates that a LEFT SHIFT is Present. LAB L100.2620 2.0-7.7 X10 3/uL Low Absolute Neut 0.2 LAB L100.2720 0.83-4.51 X10 3/ul Low Absolute Lymph 0.08 LAB L100.5500 ADEQ PLT EST Normal MKD DEC LAB L100.5650 PLT MORPH Normal LARGE LAB L100.7300 ANISO Normal 2+ LAB L100.7500 POLYCHROMASIA Normal 1+ LAB L100.7600 HYPOCHROMASIA Normal 3+ LAB L100.9900 PATH REV Normal Reviewed Result Comment: Pancytopenia with marked Thrombocytopenia. Clinical correlation necessary. Huber Maldonado D.O. 01/13/18 AMENDED REPORT 01/13/18 1242 PATH REV previously reported as: Summer aguilera Performed By: #### L100.0100 #### [facility] [address] [place], [place], [address] BASIC METABOLIC Collected: 01/12/2018 Status: F Source: BEECHER PROFILE (BMP) 10:50 AM [facility] REPOSITORY TYPE CODE TESTS RESULT OUT OF RANGE REFERENCE UNITS LAB L501.0100 74-106 mg/dL High GLU 123 Result Comment: Fasting Glucose result from 100 to 125 mg/dL suggests IMPAIRED HOMEOSTASIS per A.D.A. criteria. Please note revised GLUCOSE reference range effective 2017. LAB L501.1000 7-18 mg/dL High BUN 23 LAB L501.1100 0.70-1.30 mg/dL Normal CREAT,SERUM 0.95 Result Comment: The validity of the calculated GFR AND GFRAA in patients over 70 years has not been determined. Clinical correlation is essential. LAB L501.1110 >60 mL/min Normal EST GFR 85 Result Comment: Non- GFR Calc LAB L501.1115 >60 mL/min Normal EST GFR - AA 103 Result Comment: GFR Calc LAB L501.1255 ml/min Normal Estimated CRCL 65.17 LAB L501.1300 10-20 RATIO High BUN/CRE 24.1 LAB L501.2200 8.5-10 mg/dL Normal .1 CA 8.8 LAB L501.5300 136-14 mmol/L Low 5 NA 133 LAB L501.5600 3.5-5. mmol/L Normal 1 K 4.2 LAB L501.5900 98-107 mmol/L Low CL 96 LAB L501.6100 21.0-3 mmol/L High 2.0 CO2 33.0 LAB L501.6200 5-15 Low GAP 4 Performed By: #### L500.2500 #### [facility] [address] [place], [address] ACUTE ABDOMEN INC Observed: 01/12/2018 Status: F Source: BEECHER CHEST 9:54 AM [facility] REPOSITORY [facility] Imaging Services [address] [place] [address] Acute Abdomen Inc Chest MR#: [id number] Acct: [id number] Name: TOMY MUNSON Rep #: [id number] : 1955 M 62 From: Yosef Blevins MD PCP: ROYCE Montero Status: REG ER Study: Acute Abdomen Inc Chest Date of Exam: 01/12/18 Exam# [id number] Ordering Dr: Hiro Burgess MD STUDY: X-RAY - ACUTE ABDOMINAL SERIES REASON FOR EXAM: Male, 62 years old. 3 day history of constipation and abdominal pain. TECHNIQUE: Single view of the chest. Supine, and erect view(s) of the abdomen were obtained. COMPARISON: Comparison is made with prior chest radiograph dated December 25, 1999 FINDINGS: A left-sided portacatheter is seen. The tip is at the junction of the superior vena cava and right atrium. Stable small left pleural effusion with underlying infiltration and/or atelectasis in the posterior medial segment of the left lower lobe. There is hyperexpansion of the right hemithorax. The right lung is clear. Normal size heart. Normal mediastinum and tashia. Normal visualized pulmonary arteries. Normal visualized aortic arch and descending thoracic aorta. There is an abundance of fecal material throughout the colon. The soft tissue structures of the abdomen and pelvis are unremarkable. Levoscoliosis. RAD/Acute Abdomen Inc Chest IMPRESSION: Large amount of fecal material is seen in the colon. Stable pleural parenchymal changes at the left lung base. Electronically Signed: Yosef Blevins MD at 11:27 EDT Tel [phone], Service support , CC: ROYCE Sarmiento; Hiro Burgess MD [employer]: Signed CARDIOLOGY VISIT Observed: 01/09/2018 Status: F Source: BEECHER REPORT 3:10 PM [facility] REPOSITORY [facility] [address] [place] [address] OFFICE VISIT Date of Service: 01/09/18 MR#: [id number] Acct: [id number] Name: TOMY MUNSON Rep #: [id number] : 1955 Provider: SHILA Johnson Age/Sex: 62/M [place] [facility] Status: Signed HPI HPI Details: TOMY MUNSON, is a 62 M who presents to the office today for a cardiovascular outpatient follow-up. He has a history of paroxysmal atrial fibrillation/flutter, lung carcinoma with ongoing chemotherapy and radiation therapy status post pleural effusion with Pleurx catheter (subsequently removed). He was recently admitted to [facility] in December 2017 for atrial fibrillation with RVR. He was started on IV Cardizem and return to sinus rhythm. He underwent a stress echocardiogram was negative for ischemia by EKG and echocardiographic criteria with ejection fraction 75%. He was not started on oral anticoagulation due to a history of chronic anemia secondary to cancer and chemotherapy. During his admission his hemoglobin did drop to 6.6 g/dL that was attributed to chemotherapy that required 2 units of PRBCs. He was discharged on p.o. Cardizem and asked to follow-up with cardiology. Pt denies chest, arm, jaw, or neck discomfort. His exercise tolerance is stable via fishing. Pt denies symptoms of CHF, palpitations, lightheadedness, dizziness, near syncopal or syncopal episodes. Pt denies edema or claudication issues. Pt. denies orthopnea, PND, fever, chills, blood in urine, blood in stool, myalgia, or unexplainable fatigue. Intake Vital Signs01/09/18 Height 5 ft 7 in 01/09/18 Weight: 128 lb 01/09/18 Body Mass Index (BMI) 20.0 01/09/18 Blood Pressure 106/48 01/09/18 Blood Pressure Location Lt brachial Intake Visit Reasons: DC PCU 8-10 (2 wks) Director Of Logistics Required: No Accompanied by: None Is patient in pain?: No Allergies Iodinated Contrast- Oral and IV Dye [CT] Allergy (Mild, Verified 01/09/18 10:57) Rash Medications Ondansetron [Zofran Odt] 4 mg PO Q8H PRN PRN #30 tab 11/17/17 [Rx Confirmed 01/09/18] Albuterol IH (ProAir) [Proair Hfa] 2 puff INHALATION Q6H PRN #1 inhaler 12/18/17 [Rx Confirmed 01/08/18] Oxycodone HCl/Acetaminophen [Percocet 5-325] 1 tab PO Q6H PRN #90 tab 12/18/17 [Rx Confirmed 01/09/18] Lactose-Reduced Food/Fiber [Isosource 1.5 Magno Tube Feed Lq] 750 ml GT TID 12/25/17 [History Confirmed 01/09/18] Ferrous Sulfate 325 mg GT BIDCM #90 tab 12/26/17 [Rx Confirmed 01/09/18] levothyroxine 150 mcg tablet 150 mcg PO DAILY tab 12/29/17 [History Confirmed 01/09/18] diltiazem 60 mg tablet 60 mg PO BID #60 tab 01/02/18 [Rx Confirmed 01/09/18] omeprazole 20 mg capsule,delayed release 20 mg PO DAILY PRN cap 01/09/18 [History] polyethylene glycol 3350 17 gram oral powder packet 17 g PO DAILY PRN packet 01/09/18 [History] Ejection fraction %: 55 to 59 PFSH Medical History Pain (Acute) PEG (percutaneous endoscopic gastrostomy) status (Chronic) Tobacco dependence in remission (Chronic) Pulmonary nodule, left (Chronic) History of laryngeal cancer (Chronic) Non-small cell carcinoma of left lung, stage 3 (Chronic) Dysphagia (Chronic) Chronic anemia (Chronic) Atrial fibrillation and flutter (Chronic) Pleural effusion (Chronic) Chemotherapy management, encounter for (Chronic) Anemia (Acute) Chicken pox (Acute) Dysphagia (Acute) Hypernatremia (Acute) Hyponatremia (Acute) Hypothyroidism (Acute) Laryngeal cancer (Acute) Lymphadenitis (Acute) Measles (Acute) Mumps (Acute) Surgical History Status post insertion of percutaneous endoscopic gastrostomy (PEG) tube (Chronic) port placement (Chronic) History of hernia repair (Resolved) History of thoracentesis (Resolved) LEFT WRIST SURGERY (Resolved) Family History Father Heart disease Social History Smoking Status: Former smoker quit date: 05/19/14 pack-years: 30 second hand exposure: No alcohol intake: never substance use type: does not use caffeine: No ROS Const Const: Negative for fatigue, weakness, body ache, fever(s) or chills ENT ENT: Negative for dizziness Cardio Chest Pain: No Palpitations: No Edema: None Muscle aches with walking: None Resp Respiratory: Negative for SOB with activity, SOB at rest, SOB orthopnea\SOB lying down or paroxysmal nocturnal dyspnea GI GI: Negative nausea, black,tarry stools, bright, red blood in stools or vomiting blood/hematemesis : Negative for hematuria or frequent nighttime urination/ nocturia Musc Musc: Negative for muscle aches/ myalgia Skin Skin: Negative non-healing lesions or rash Neuro Neuro: Negative for weakness, dizziness, lightheadedness, near syncope, syncope or orthostatic symptoms Endo Endo: Negative for fatigue Allergy Allergy/Immunology: Negative for rash Cardiology Exam Const Appearance: cooperative, healthy appearing, comfortable and no acute distress Nutritional Appearance: average body habitus and well nourished Orientation: alert, awake and oriented x3 Head Head: normal to inspection Ears: hearing grossly normal bilaterally Nose: external nose normal Face and Sinus: face symmetric Mouth: oral mucosae normal Eyes General: appearance normal, both eyes and all related structures Eyelids: eyelids normal EOM: EOM intact bilaterally Neck Neck: no JVD and normal visual inspection Carotids: normal carotid upstroke Chest Chest inspection: normal inspection of the chest and normal respiratory effort; negative cough Auscultation: Bilateral: Clear to Auscultation Cardio Rate: regular rate Rhythm: regular rhythm Heart sounds: S1 normal and S2 normal; negative rub, gallop or murmur GI GI: normal to inspection Neuro General: alert, awake, oriented x3 and CN's II-XI intact bilaterally Skin Skin: no rashes or lesions noted Extremities Pulses: Normal: Right Posterior Tibial Pulse, Left Posterior Tibial Pulse, Right Radial Pulse, Left Radial Pulse Lower Extremity Edema: None: Bilateral Psych Psychological: normal affect Supplemental Info Stress echocardiogram from December 2017 showed ejection fraction of 65% and was considered a normal, adequate, treadmill echocardiogram that was negative for ischemia by EKG and echocardiographic criteria. No anginal symptoms were noted. Transient atrial fibrillation at peak exercise with reverted back to normal sinus rhythm. Rare PVCs noted. Appropriate blood pressure response to exercise. Below average exercise capacity for age and test terminated due to dyspnea and attainment of target heart rate. Assessment AND Plan 1. Atrial fibrillation and flutter I48.91; I48.92 Plan He appears to be maintaining regular rhythm. His heart rate is well controlled. He will continue with Cardizem. As noted above he is not on oral anticoagulation due to history of chronic anemia and recently requiring packed red blood cells for hemoglobin 6.6 g/dL. Plan Detail Additional Comments Thank you for allowing us to participate in the patient's plan of care, if you have any questions please do not hesitate to call. This note was generated using a voice recognition system and there may be incorrect words, spelling, or punctuation that were not noted upon reviewing the office note prior to saving. Follow Up 14 Months (PFM) 6 Months (CAD ENGINEER/PA) Coding Level of Care Code Off vis,est,level 3 Diagnoses Atrial fibrillation and flutter I48.91; I48.92 Coding Level of Care Code Off vis,est,level 3 Diagnoses Atrial fibrillation and flutter I48.91; I48.92 01/09/18 1510 <Electronically signed by Esther CRANE> Date Esther CRANE Cosigner Signature: Date (if applicable) CC: ROYCE Sarmiento ONCOLOGY VISIT REPORT Observed: 01/08/2018 Status: F Source: [facility] 11:55 AM [facility] REPOSITORY [facility] [address] [place], [place] [address]laura [place] [address] OFFICE VISIT Date of Service: 01/08/18 0941 MR#: [id number] Acct: [id number] Name: TOMY MUNSON Rep #: [id number] : 1955 From: Marisol CRANE Age/Sex: 62/M Location: OMD Status: Signed Subjective - Date of Service Date of Service:: 01/08/18 - Chief Complaint NSCLC on treatment - History of Present Illness Mr. 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 He was treated with concurrent chemotherapy and Radiation. He received 3 cycles of Cisplatin 100mg/m2 from 07/04/2015-08/09/2015. He had a PET/CT done on 11/30/2015 which showed no hypermetabolic activity. PET/CT on 09/30/2016 demonstrated hypermetabolic activity within the left lower lobe and at the level of the laryngeal structures. Underwent biopsies of larynx on 11/15/16 under the care of Dr. Ascencio, pathology of which were negative. Had CT guided bx of LLL nodule on 01/02/[address] scan of chest on 09/16/2017 showed increasing Left lower lobe mass and new Left hilar mass. He was referred for EBUS + biopsy, it was done on 09/26/2017 and showed squamous cell cancer. MRI brain done on 10/14/2017 was negative for brain metastases. PET/CT on 10/16/2017 shows new hypermetabolic activity in left hemithorax with activity in precarinal area mediastinum, left perihilar area and pleural effusion. He had increase in Pleural fluid, thoracentesis showed no malignant cells. Pleurx cath was placed. He was transferred to [facility] for bronchial stenting but could not be done. He was staged as NSCLC stage IIIB. He started chemotherapy with Carboplatin and Taxol every 28 days on 11/20/2017 and Radiation therapy on 11/24/2017. He was admitted 12/07/17-12/15/17 for sepsis and infected Pleurx catheter which was removed. Required admission 12/24/09 for management of atrial flutter with RVR, discharged home on ASA 81 and cardizem. cycle 2 day 8 Taxol omitted. Received cycle 2 day 15 Taxol on 01/01/18. - Interval History The patient is presenting to clinic for 1 week follow up. Concerns today include bruising involving BUE, he attributes to use of ASA 81 mg. No other episodes of bleeding, including epistaxis, melena/hematochezia. Otherwise denies any outstanding complaints. Fatigue mild to moderate, citing he spent all day yesterday hiking and fishing. Nausea mild intermittent, taking Zofran with relief has not resulted in any episodes of emesis. Denies dizziness, CP, palpations, abd pain, swelling/pain of his extremities and diarrhea. - Past Medical/Social History Past Medical History Past Medical History: Anemia Other Past Medical History: Hyponatremia Hypothyroidism Dysphagia Hypernatremia Lymphadenitis Measles Mumps Chicken Pox Cancer: Lung cancer,Oral cancer Other Cancer History: hx of laryngeal ca 06/21/15 treated w/chemo and radiation. Past Surgical History Surgical: Hernia repair Other Surgical History: Left Wrist surgery Peg Tube Family History Paternal Past Medical History: Heart disease Maternal Past Medical History: Unknown Social History Social History: No changes Smoking Status Former smoker Review of Systems Constitutional:: Reports: Weakness, Fatigue. Denies: Fever, Sweats, Weight loss, Appetite change, Chills Cardiovascular:: Reports: Dyspnea on exertion. Denies: Chest pain, Palpitations, Orthopnea, PND Respiratory: Reports: Cough, Shortness of Breath. Denies: Hemoptysis, Wheezing Gastrointestinal:: Reports: Nausea. Denies: Abdominal pain, Vomiting, Diarrhea, Constipation, Hematochezia Genitourinary: Denies: Dysuria, Hematuria, Urinary frequency, Flank pain Musculoskeletal:: Denies: Back pain, Myalgia, Arthralgia Skin: Denies: Rash, Skin Changes, Wounds Neurological:: Reports: Numbness, Tingling. Denies: Headache, Dizziness, Visual changes, Tinnitus, Hearing loss Psychiatric: Denies: Anxiety, Depression, Homicidal Ideations, Suicidal Ideations Vital Signs Height 5 ft 7 in Weight: 126 lb Weight in Pounds 126.0 lbs BMI 20.7 Pulse Ox 96 - Physical Exam General: Alert, Oriented x3, No apparent distress HEENT: Atraumatic, Normocephalic, - - wears glasses Oropharynx:: Dry mucosa. Negative for: Ulcerated lesions Neck:: Supple, Trachea midline. Negative for: JVD, bilateral Cardiac:: Regular rate, Regular rhythm, Normal S1, Normal S2. Negative for: Murmur Lungs: Wheezes - faint expiratory, Excusion symmetrical. Negative for: Rhonchi, Diminished, Increased respiratory effort Abdomen:: Bowel sounds x 4, Soft, Non-tender, Non-distended, - - PEG in place. Negative for: Hepatosplenomegaly Extremities:: Negative for: Cyanosis, Edema, Calf tenderness Neurological: Neuro grossly intact Skin:: - - port left upper chest accessed with gripper covered with DSD. Negative for: Lesions, Rash, Petechiae, Ecchymosis Psychiatric:: Appropriate affect, Euthymic Lymphatics:: Negative for: Cervical lymphadenopathy, Supraclavicular lymphadenopathy, Axillary lymphadenopathy Assessment and Plan 1. Non small cell lung cancer, squamous cell type, T4 N2 M0- stage IIIB, Pleural fluid is negative for malignant cells, on Carboplatin and Taxol with Radiation. Compression of Left main bronchus and Pulmonary vessels. Overall, patient reports he is feeling better in comparison to last week in terms of energy levels and decreased incidence/severity of nausea. CBC reveals pancytopenia, notably grade 3 thrombocytopenia. Bleeding precautions reviewed in depth. No active bleeding, although patient admits to bruising easily. Advised to HOLD ASA 81 mg and cardiology notified. (Has appointment with Dr Arreaga tomorrow). He is not on Plavix. Hgb 8.5- no indication for transfusion at the present time. Will closely monitor. Grade 3 Neutropenia- ANC 0.8 Neutropenic precautions reviewed. 2. H/o Laryngeal CA stage TAWNY, S/P Chemoradiation therapy Repeat CBC on Friday01/12/18 while here for radiation. RTO on 01/15/[address] Leigh. Case discussed with Dr. Leigh on 01/07/18- Per Dr. Leigh patient to possibly start consolidation chemotherapy on 01/15/18. Marisol Segura, MSN, [employer]LECTION CLERK, AOCNP Medications: Prescriptions This Visit Medication Instructions Recorded Ondansetron [Zofran Odt] 4 mg PO Q8H PRN PRN #30 tab 11/17/17 Primary Care Provider: ROYCE Montero Referring Provider: - Problem List (1) Pulmonary nodule, left Status: Chronic (2) Atrial fibrillation and flutter Status: Acute (3) History of laryngeal cancer Status: Chronic 01/08/18 1155 <Electronically signed by Marisol CRANE> Date Marisol CRANE Cosigner Signature: Date (if applicable) CC: CBC W/DIFF, AUTOMATED Collected: 01/08/2018 Status: C Source: [place] 9:23 AM [facility] REPOSITORY Order Comment: Reason for Laboratory Test . TYPE CODE TESTS RESULT OUT OF RANGE REFERENCE UNITS LAB L100.1000 4.4-11.0 K/mm3 Low alert WBC 0.9 Result Comment: CRITICAL VALUE VERIFIED. CALLED TO VICTORINO MARTIN 01/08/18 0940 Sandepe Stephen RESULTS READ BACK BY SAME. LAB L100.1200 4.6-6.2 M/mm3 Low RBC 2.78 LAB L100.1300 13.0-16.5 g/dl Low HGB 8.5 LAB L100.1400 40-54 % Low HCT 26.0 LAB L100.1500 80-94 fL Normal MCV 93.5 LAB L100.1600 27.0-32.0 pg Normal MCH 30.6 LAB L100.1700 32-36 g/gl Normal MCHC 32.7 LAB L100.1810 11.6-14.6 % High RDW 23.7 CV LAB L100.1820 35.1-43.9 fl High RDW 80.3 SD LAB L100.1900 150-450 K/mm3 Low alert PLT 29 Result Comment: CRITICAL VALUE VERIFIED. CALLED TO VICTORINO MARTIN 01/08/18 0940 Sandeep Stephen RESULTS READ BACK BY SAME. LAB L100.2000 6.2-12.0 fl Normal MPV 9.8 LAB L100.2100 47-70 % High NEUT% 91.1 LAB L100.2200 19-41 % Low LY% 6.7 LAB L100.2300 0-10 % Normal MONO% 1.1 LAB L100.2400 0-5 % Normal EO% 1.1 LAB L100.2500 0-1 % Normal BASO% 0.0 LAB L100.2550 0.0-0.9 % Normal IM GRAN % 0.000 Result Comment: IG% - Immature Granulocytes (promyelocytes, myelocytes and metamyelocytes) > 1% indicates that a LEFT SHIFT is Present. LAB L100.2620 2.0-7.7 X10 3/uL Low Absolute Neut 0.8 LAB L100.2720 0.83-4.51 X10 3/ul Low Absolute Lymph 0.06 LAB L100.4500 Normal SMEAR COMMENT COMMENT Result Comment: SLIDE SCANNED - NEUTROPENIA,LYMPHOPENIA,LEUKOCYTOPENIA,THROMBOCYTOPENIA, 1+ ANISO. LAB L100.9900 Normal Reviewed PATH REV Result Comment: Pancytopenia. Clinical correlation necessary. [place] M.D. 01/09/18 AMENDED REPORT 01/09/18 0858 PATH REV previously reported as: September ale Performed By: #### L100.0100, L500.4050, L501.5200 #### [facility] [address] [place], [address] COMPREHENSIVE METABOLIC Collected: 01/08/2018 Status: F Source: [facility] 9:23 AM [facility] REPOSITORY Order Comment: Reason for Laboratory Test . TYPE CODE TESTS RESULT OUT OF RANGE REFERENCE UNITS LAB L501.0100 74-106 mg/dL High GLU 108 Result Comment: Fasting Glucose result from 100 to 125 mg/dL suggests IMPAIRED HOMEOSTASIS per A.D.A. criteria. Please note revised GLUCOSE reference range effective 2017. LAB L501.1000 7-18 mg/dL High BUN 26 LAB L501.1100 0.70-1.30 mg/dL Normal CREAT,SERUM 0.84 Result Comment: The validity of the calculated GFR AND GFRAA in patients over 70 years has not been determined. Clinical correlation is essential. LAB L501.1110 >60 mL/min Normal EST GFR 98 Result Comment: Non- GFR Calc LAB L501.1115 >60 mL/min Normal EST GFR - AA 118 Result Comment: GFR Calc LAB L501.1255 ml/min Normal Estimated CRCL 73.71 LAB L501.1300 10-20 RATIO High BUN/CRE 30.8 LAB L501.1500 6.4-8. g/dL Normal 2 T PROT 6.6 LAB L501.1800 3.2-5. g/dL Low 0 ALB 3.1 LAB L501.1950 2.2-4. g/dL Normal 2 GLOB 3.5 LAB L501.2000 0.9-2. RATIO Normal 4 A/G 0.9 LAB L501.2200 8.5-10 mg/dL Normal .1 CA 8.7 LAB L501.4100 15-37 U/L Normal AST 19 LAB L501.4305 45-117 U/L Normal ALK P 64 LAB L501.4405 16-61 U/L Normal ALT 21 LAB L501.4600 0.20-1 mg/dL Normal .00 T BILI 0.40 LAB L501.5300 136-14 mmol/L Low 5 NA 133 LAB L501.5600 3.5-5. mmol/L Normal 1 K 4.2 LAB L501.5900 98-107 mmol/L Low CL 96 LAB L501.6100 21.0-3 mmol/L Normal 2.0 CO2 30.0 LAB L501.6200 5-15 Normal GAP 7 Performed By: #### L100.0100, L500.4050, L501.5200 #### [facility] [address] [facility] [place], [address] MAGNESIUM Collected: 01/08/2018 Status: F Source: [place] 9:23 AM [facility] REPOSITORY Order Comment: Reason for Laboratory Test . TYPE CODE TESTS RESULT OUT OF RANGE REFERENCE UNITS LAB L501.5200 1.6-2.6 mg/dL Normal MG 1.9 Performed By: #### L100.0100, L500.4050, L501.5200 #### [facility] [address] [facility] [place], [address] RADIATION ONCOLOGY Observed: 01/07/2018 Status: F Source: [place] VISIT 9:57 AM [facility] REPOSITORY [facility] [address] [facility] 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 Unfortunately due to treatment delays the lung cancer appears to have progressed and caused complete collapse of the left lung romeo and interventional pulmonology was unable to place stent. Plan was made to complete definitive chemoradiation therapy consisting of 6000 cGy in 30 fractions with concurrent Carbo/Taxol. Treatment Data: Treatment Site: Left lung and left hilar disease Current total dose/Total dose planned: 5400 cGy / 6000 cGy Fraction number: Chemotherapy: Weekly Carbo/Taxol Subjective: Patient reports doing well overall. Patient previously was draining Pleurx catheter daily and getting out about 200-400 cc per day. From 12/07-12/13 he was admitted to the hospital for neutropenia and diagnosed with MRSA infected chest tube which was removed. He reports increased fatigue but is improving since discharge. CT chest on 12/11 showed continued consolidation in the left lower hemithorax but improvement elsewhere. Radiation therapy was held from 12/08-12/12 due to the neutropenia. From 12/24 - 12/26: He was admitted for A. fib with RVR with rate in the 160s. This corrected with Cardizem and he was discharged with Cardizem per day and aspirin as he is not able to take blood thinners. He also was noted to have a borderline elevated troponin which was attributed to the A. fib with RVR, stress test and echo were normal with EF of 75%. Nutrition: PEG tube dependent,weight fluctuating, up 5 lbs this week. Only water by mouth Xerostomia: chronic and stable, biotene and water Fatigue: moderate Pain: occasional right CW pain, mild Resp: occasional SOB (mild) and much improved since pre-treatment. occasional cough, no hemoptysis. Swallowing: just fluids since previous H AND N cancer chemoradiation. Occasional mild discomfort with fluids. no dysphagia Afib/Flutter: controlled with cardizem Height/Weight/BMI: Height: 5 ft 7 in Weight: 56.608 kg; 11/26/17: 124.8 lbs, 12/03/17: 127.5 lbs, 12/15/17: 125.9 lbs, 12/17/17: 123.6 lbs, 12/24/17: 123.9 lbs, 129 lbs. Vital Signs Temperature 98.5 F 01/07/18 09:48 Temperature Source Oral 01/07/18 09:48 Pulse Rate 87 01/07/18 09:48 Respiratory Rate 16 01/07/18 09:48 Objective: Gen: NAD ENT: mouth dry, no thrush Resp: improved upper left lung sounds with good air movement. CTA bilaterally now with occasional expiratory wheeze. CV: regular rate, irregularly irregular rhythm Abd: PEG tube and Pleurx Catheter in place Skin: no erythema Laboratory Tests WBC Hgb Plt Count Absolute Neuts (auto) 1.4 L 0.4 L 0.3 L WBC 5.8 Hgb 7.4 L Plt Count 102 L Absolute Neuts (auto) 0.1 L 1.4 L 4.7 Laboratory Tests Absolute Neuts (auto) 8.2 H 6.1 Troponin I < 0.015 Absolute Neuts (auto) Troponin I 0.057 H Laboratory Tests WBC 3.0 L Hgb 9.2 L Plt Count 381 Absolute Neuts (auto) 2.6 BUN 22 H Creatinine 0.72 Laboratory Tests WBC 2.6 L Hgb 10.2 L Plt Count 76 L BUN 26 H Creatinine 0.86 Assessment: Tolerating radiation therapy well overall. Left lung has re-expanded. All treatment related imaging reviewed and approved. GERD Breathing stable Neutropenia without fever: jennifer of 0.1, improved. Radiation therapy was held for one week due to very low neutrophil count A fib with RVR: rate controlled with cardizem, taking aspirin cannot take blood thinner. Plan: Due to lung re-expansion, completed verification simulation re-plan was completed for the final 16 fractions. Discussed potential radiation toxicities and their timing Omeprazole through PEG tube Will get percocet refill from PCP neutropenia resolved. Afib with RVR: continue follow up and recs from cardiology. Continue treatment as planned, will complete planned XRT on Friday 01/12 and follow up one month later. Still considering consolidative chemo. Thank you for allowing me to participate in the management and care of your patient. If I may answer any questions in the interim, please do not hesitate to contact me at any time. Vish Crespo DO, MS [employer], Department of Radiation Oncology [facility] 01/07/18 1731 <Electronically signed by Vish Crespo DO> Date Vish Sara RIOS Cosigner Signature: Date (if applicable) CC: ONCOLOGY VISIT REPORT Observed: 01/01/2018 Status: F Source: [place] 2:50 PM [facility] REPOSITORY [facility] [address] [place] [address] OFFICE VISIT Date of Service: 01/01/18 0925 MR#: [id number] Acct: [id number] Name: TOMY MUNSON Rep #: [id number] : 1955 From: Marisol CRANE Age/Sex: 62/M Location: ONC Status: Signed Subjective - Date of Service Date of Service:: 01/01/18 - Chief Complaint NSCLC on treatment - History of Present Illness Mr. 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 He was treated with concurrent chemotherapy and Radiation. He received 3 cycles of Cisplatin 100mg/m2 from 07/04/2015-08/09/2015. He had a PET/CT done on 11/30/2015 which showed no hypermetabolic activity. PET/CT on 09/30/2016 demonstrated hypermetabolic activity within the left lower lobe and at the level of the laryngeal structures. Underwent biopsies of larynx on 11/15/16 under the care of Dr. Ascencio, pathology of which were negative. Had CT guided bx of LLL nodule on 01/02/[address] scan of chest on 09/16/2017 showed increasing Left lower lobe mass and new Left hilar mass. He was referred for EBUS + biopsy, it was done on 09/26/2017 and showed squamous cell cancer. MRI brain done on 10/14/2017 was negative for brain metastases. PET/CT on 10/16/2017 shows new hypermetabolic activity in left hemithorax with activity in precarinal area mediastinum, left perihilar area and pleural effusion. He had increase in Pleural fluid, thoracentesis showed no malignant cells. Pleurx cath was placed. He was transferred to [facility] for bronchial stenting but could not be done. He was staged as NSCLC stage IIIB. He started chemotherapy with Carboplatin and Taxol every 28 days on 11/20/2017 and Radiation therapy on 11/24/2017. He was admitted 12/07/17-12/15/17 for sepsis and infected Pleurx catheter which was removed. Required admission 12/24/09 for management of atrial flutter with RVR, discharged home on ASA 81 and cardizem. - Interval History The patient is presenting to clinic for an evaluation anticipating he will receive chemotherapy today. Treatment held last week d/t admission for management of atrial flutter. Discharge home on 12/26/17 on ASA 81 and Cardizem, taking as advised. Only concerns today are difficulty administering Cardizem via PEG and fatigue. Describes fatigue is mild citing he was able to go fishing most of the weekend. Also requests refill of Percocet. Per patient takes 1 tablet at at bedtime for right-sided jaw pain (in which he attributes to radiation therapy for previously treated head and neck CA), chronic. Has been evaluated by oral surgery in the past and interventions have been deferred until after he has completed chemoradiation. Specifically denies chest pain, palpitations, swelling and pain of his extremities and any overt episodes of bleeding or abnormal bruising. Further denies any worsening of exertional dyspnea from baseline. - Past Medical/Social History Past Medical History Past Medical History: Anemia Other Past Medical History: Hyponatremia Hypothyroidism Dysphagia Hypernatremia Lymphadenitis Measles Mumps Chicken Pox Cancer: Lung cancer,Oral cancer Other Cancer History: hx of laryngeal ca 06/21/15 treated w/chemo and radiation. Past Surgical History Surgical: Hernia repair Other Surgical History: Left Wrist surgery Peg Tube Family History Paternal Past Medical History: Heart disease Maternal Past Medical History: Unknown Social History Social History: No changes Smoking Status Former smoker Review of Systems Constitutional:: Reports: Fatigue. Denies: Fever, Sweats, Weight loss, Appetite change, Chills Cardiovascular:: Denies: Chest pain, Palpitations, Dyspnea on exertion, Orthopnea, PND, Shortness of breath Respiratory: Denies: Cough, Hemoptysis, Shortness of Breath, Wheezing Gastrointestinal:: Denies: Abdominal pain, Nausea, Vomiting, Diarrhea, Constipation, Hematochezia Genitourinary: Denies: Dysuria, Hematuria, Urinary frequency, Flank pain Musculoskeletal:: Denies: Back pain, Myalgia, Arthralgia Skin: Denies: Rash, Skin Changes, Wounds Neurological:: Reports: Numbness, Tingling. Denies: Headache, Dizziness, Visual changes, Tinnitus, Hearing loss Psychiatric: Denies: Anxiety, Depression, Homicidal Ideations, Suicidal Ideations Vital Signs Height 5 ft 7 in Weight: 124 lb 4.8 oz Weight in Pounds 124.3 lbs BMI 20.7 Pulse Ox 99 - Physical Exam General: Alert, Oriented x3, No apparent distress HEENT: Atraumatic, Normocephalic Oropharynx:: Dry mucosa, - - Edentulous. Negative for: Ulcerated lesions Neck:: Supple, Trachea midline. Negative for: JVD, bilateral Cardiac:: Regular rate, Regular rhythm, Normal S1, Normal S2. Negative for: Murmur Lungs: Diminished, Excusion symmetrical. Negative for: Rhonchi, Wheezes, Increased respiratory effort Abdomen:: Bowel sounds x 4, Soft, Non-tender, Non-distended. Negative for: Hepatosplenomegaly Extremities:: Negative for: Cyanosis, Edema Neurological: Neuro grossly intact Skin:: - - Port left upper chest access with gripper covered with DSD. Negative for: Lesions, Rash, Petechiae, Ecchymosis Psychiatric:: Appropriate affect, Euthymic Lymphatics:: Negative for: Cervical lymphadenopathy, Supraclavicular lymphadenopathy, Axillary lymphadenopathy Diagnostic Data: Laboratory Tests WBC 2.6 L Hgb 10.2 L Plt Count 76 L Absolute Neuts (auto) 2.2 BUN 26 H Creatinine 0.86 Albumin 2.9 L Assessment and Plan 1. Non small cell lung cancer, squamous cell type, T4 N2 M0- stage IIIB, Pleural fluid is negative for malignant cells, on Carboplatin and Taxol with Radiation. Compression of Left main bronchus and Pulmonary vessels. Pleural effusion, Pleurx catheter removed. Dose of Taxol reduced with cycle 2 to 80mg/m2 in response to sepsis. C2 D8 Taxol omitted d/t hospitalization for management of arrhythmia last week. CBC reviewed and although thrombocytopenia more pronounced as evidenced by platelet count 76,000, counts are within acceptable parameters for Taxol. He is otherwise not endorsing any signs or symptoms of toxicity contraindicating chemotherapy today. Thus will proceed with cycle 2 day 15 Taxol at a maintained 80 mg/m2 2. H/o Laryngeal CA stage TAWNY, S/P Chemoradiation therapy 3. Right sided jaw pain- Patient attributes to radiation associated with treatment for laryngeal ca. Has established with an oral surgeon who plans intervention subsequent to present course of concomitant chemoradiation. Patient give #90 Percocet on 12/18/17. Will not refill at this time. Should continue Miralax for constipation prophylaxis. 4. Afib with RVR- Advised to continue cardiology recommendations. Platelets 76,000. Continue ASA 81 mg to hold in the future in the event platelets <50,000. Keep OV with Dr. Arreaga next week. Will call cardiology to determine if there is an alternate for the Cardizem capsules, ie a tablet that can be more easily crushed and administered through PEG. Return to clinic 1 wk with CBC/CMP for C3D1 Carboplatin/Taxol, sooner if issues arise. Marisol Segura, MSN, [employer] COLLECTION CLERK, AOCNP Medications: Prescriptions This Visit Medication Instructions Recorded Ondansetron [Zofran Odt] 4 mg PO Q8H PRN PRN #30 tab 11/17/17 Primary Care Provider: ROYCE Montero Referring Provider: - Problem List (1) Pulmonary nodule, left Status: Chronic (2) Atrial fibrillation and flutter Status: Acute (3) History of laryngeal cancer Status: Chronic (4) Pain Status: Acute 01/01/18 1450 <Electronically signed by Marisol ZHENGC> Date Marisol CRANE Cosigner Signature: Date (if applicable) CC: RAFITA W/DIFF, AUTOMATED Collected: 01/01/2018 Status: F Source: [facility] 9:18 AM [facility] REPOSITORY Order Comment: Reason for Laboratory Test OV TYPE CODE TESTS RESULT OUT OF RANGE REFERENCE UNITS LAB L100.1000 4.4-11.0 K/mm3 Low WBC 2.6 LAB L100.1200 4.6-6.2 M/mm3 Low RBC 3.34 LAB L100.1300 13.0-16.5 g/dl Low HGB 10.2 LAB L100.1400 40-54 % Low HCT 31.7 LAB L100.1500 80-94 fL High MCV 94.9 LAB L100.1600 27.0-32.0 pg Normal MCH 30.5 LAB L100.1700 32-36 g/gl Normal MCHC 32.2 LAB L100.1810 11.6-14.6 % High RDW CV 24.5 LAB L100.1820 35.1-43.9 fl High RDW SD 81.4 LAB L100.1900 150-450 K/mm3 Low PLT 76 LAB L100.2000 6.2-12.0 fl Normal MPV 8.3 LAB L100.2100 47-70 % High NEUT% 85.4 LAB L100.2200 19-41 % Low LY% 7.3 LAB L100.2300 0-10 % Normal MONO% 6.9 LAB L100.2400 0-5 % Normal EO% 0.0 LAB L100.2500 0-1 % Normal BASO% 0.4 LAB L100.2550 0.0-0.9 % Normal IM GRAN % 0.000 Result Comment: IG% - Immature Granulocytes (promyelocytes, myelocytes and metamyelocytes) > 1% indicates that a LEFT SHIFT is Present. LAB L100.2620 2.0-7.7 X10 3/uL Absolute Neut Normal 2.2 LAB L100.2720 0.83-4.51 X10 3/ul Low Absolute Lymph 0.19 LAB L100.5500 ADEQ PLT EST Normal MOD DEC LAB L100.7300 ANISO Normal 1+ LAB L100.7500 POLYCHROMASIA Normal RARE LAB L100.7600 HYPOCHROMASIA Normal 1+ LAB L100.7800 MACROCYTE Normal 1+ Performed By: #### L100.0100, L500.4050, L501.5200 #### [facility] [address] [place], [address] COMPREHENSIVE METABOLIC Collected: 01/01/2018 Status: F Source: [place] ANDREWS 9:18 AM [facility] REPOSITORY Order Comment: Reason for Laboratory Test OV TYPE CODE TESTS RESULT OUT OF RANGE REFERENCE UNITS LAB L501.0100 74-106 mg/dL High GLU 124 Result Comment: Fasting Glucose result from 100 to 125 mg/dL suggests IMPAIRED HOMEOSTASIS per A.D.A. criteria. Please note revised GLUCOSE reference range effective 2017. LAB L501.1000 7-18 mg/dL High BUN 26 LAB L501.1100 0.70-1.30 mg/dL Normal CREAT,SERUM 0.86 Result Comment: The validity of the calculated GFR AND GFRAA in patients over 70 years has not been determined. Clinical correlation is essential. LAB L501.1110 >60 mL/min Normal EST GFR 96 Result Comment: Non- GFR Calc LAB L501.1115 >60 mL/min Normal EST GFR - AA 116 Result Comment: GFR Calc LAB L501.1255 ml/min Normal Estimated CRCL 70.85 LAB L501.1300 10-20 RATIO High BUN/CRE 30.2 LAB L501.1500 6.4-8. g/dL Normal 2 T PROT 6.4 LAB L501.1800 3.2-5. g/dL Low 0 ALB 2.9 LAB L501.1950 2.2-4. g/dL Normal 2 GLOB 3.5 LAB L501.2000 0.9-2. RATIO Low 4 A/G 0.8 LAB L501.2200 8.5-10 mg/dL Normal .1 CA 8.6 LAB L501.4100 15-37 U/L Low AST 13 LAB L501.4305 45-117 U/L Normal ALK P 58 LAB L501.4405 16-61 U/L Normal ALT 21 LAB L501.4600 0.20-1 mg/dL Normal .00 T BILI 0.50 LAB L501.5300 136-14 mmol/L Low 5 NA 134 LAB L501.5600 3.5-5. mmol/L Normal 1 K 4.0 LAB L501.5900 98-107 mmol/L Low CL 97 LAB L501.6100 21.0-3 mmol/L Normal 2.0 CO2 31.0 LAB L501.6200 5-15 Normal GAP 6 Performed By: #### L100.0100, L500.4050, L501.5200 #### [facility] [address] [place], [address] MAGNESIUM Collected: 01/01/2018 Status: F Source: [place] 9:18 AM [facility] REPOSITORY Order Comment: Reason for Laboratory Test OV TYPE CODE TESTS RESULT OUT OF RANGE REFERENCE UNITS LAB L501.5200 1.6-2.6 mg/dL Normal MG 1.9 Performed By: #### L100.0100, L500.4050, L501.5200 #### [facility] [address] [place], [address] RADIATION ONCOLOGY Observed: 12/31/2017 Status: F Source: [place] VISIT 9:50 AM [facility] REPOSITORY [facility] [address] [facility] 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 Unfortunately due to treatment delays the lung cancer appears to have progressed and caused complete collapse of the left lung romeo and interventional pulmonology was unable to place stent. Plan was made to complete definitive chemoradiation therapy consisting of 6000 cGy in 30 fractions with concurrent Carbo/Taxol. Treatment Data: Treatment Site: Left lung and left hilar disease Current total dose/Total dose planned: 4400 cGy / 6000 cGy Fraction number: Chemotherapy: Weekly Carbo/Taxol Subjective: Patient reports doing well overall. Patient previously was draining Pleurx catheter daily and getting out about 200-400 cc per day. From 12/07-12/13 he was admitted to the hospital for neutropenia and diagnosed with MRSA infected chest tube which was removed. He reports increased fatigue but is improving since discharge. CT chest on 12/11 showed continued consolidation in the left lower hemithorax but improvement elsewhere. Radiation therapy was held from 12/08-12/12 due to the neutropenia. From 12/24 - 12/26: He was admitted for A. fib with RVR with rate in the 160s. This corrected with Cardizem and he was discharged with Cardizem per day and aspirin as he is not able to take blood thinners. He also was noted to have a borderline elevated troponin which was attributed to the A. fib with RVR, stress test and echo were normal with EF of 75%. Nutrition: PEG tube dependent, reduced about a week ago due to dietary recommendation. weight stable this week. Only water by mouth Fatigue: moderate Pain: occasional right CW pain, mild Resp: occasional SOB (mild) and much improved since pre-treatment. occasional cough, no hemoptysis. Swallowing: just fluids since previous H AND N cancer chemoradiation. no pain with fluids. no dysphagia Height/Weight/BMI: Height: 5 ft 7 in Weight: 56.608 kg; 11/26/17: 124.8 lbs, 12/03/17: 127.5 lbs, 12/15/17: 125.9 lbs, 12/17/17: 123.6 lbs, 12/24/17: 123.9 lbs Vital Signs Temperature 98.3 F 12/31/17 09:15 Temperature Source Oral 12/31/17 09:15 Pulse Rate 93 12/31/17 09:15 Respiratory Rate 16 12/31/17 09:15 Objective: Gen: NAD ENT: mouth dry, no thrush Resp: improved upper left lung sounds with good air movement. CTA bilaterally now with occasional expiratory wheeze CV: regular rate, irregularly irregular rhythm Abd: PEG tube and Pleurx Catheter in place Skin: no erythema Laboratory Tests WBC Hgb Plt Count Absolute Neuts (auto) 1.4 L 0.4 L 0.3 L WBC 5.8 Hgb 7.4 L Plt Count 102 L Absolute Neuts (auto) 0.1 L 1.4 L 4.7 Laboratory Tests Absolute Neuts (auto) 8.2 H 6.1 Troponin I < 0.015 Absolute Neuts (auto) Troponin I 0.057 H Laboratory Tests WBC 3.0 L Hgb 9.2 L Plt Count 381 Absolute Neuts (auto) 2.6 BUN 22 H Creatinine 0.72 Assessment: Tolerating radiation therapy well overall. Left lung has re-expanded superiorly in the last couple days. GERD Breathing stable Neutropenia without fever: jennifer of 0.1, improved. Radiation therapy was held for one week due to very low neutrophil count A fib with RVR: rate controlled with cardizem, taking aspirin cannot take blood thinner. Plan: Due to lung re-expansion, completed verification simulation re-plan was completed for the final 16 fractions. Discussed potential radiation toxicities and their timing Omeprazole through PEG tube Will get percocet refill from PCP neutropenia resolved. Afib with RVR: continue follow up and recs from cardiology. Continue treatment as planned, follow-up next week or sooner if needed. Thank you for allowing me to participate in the management and care of your patient. If I may answer any questions in the interim, please do not hesitate to contact me at any time. Vish Crespo DO, MS [employer], Department of Radiation Oncology [facility] 12/31/17 7987 <Electronically signed by Vish Crespo DO> Date Vish Crespo DO Cosigner Signature: Date (if applicable) CC: 12 LEAD ELECTROCARDIOGRAM Observed: 12/29/2017 Status: F Source: [place] 3:49 PM [facility] REPOSITORY [facility] Cardiovascular Services [address] [place] [address] 12 Lead EKG 12/25/17 0613 MR#: [id number] Acct: [id number] Name: TOMY MUNSON Rep #: [id number] : 1955 62 From: Neal Jaimes MD Attending Dr: Nadege Menon Status: DIS IN Ordering Dr: Nadege Menon MD Date: 12/25/17 Location: [facility] Sex: M C Admitted: 12/24/17 Test Reason : AM EKG Blood Pressure : / mmHG Vent. Rate : 073 BPM Atrial Rate : 073 BPM P-R Int : 132 ms QRS Dur : 084 ms QT Int : 368 ms P-R-T Axes : 077 052 058 degrees QTc Int : 405 ms Normal sinus rhythm Normal ECG When compared with ECG of 24-DEC-2017 09:44, MANUAL COMPARISON REQUIRED, DATA IS UNCONFIRMED Confirmed by NEAL JAIMES MD ([id number]), editor in chief newspaper [employer]AN[employer] NICOLAS ([id number]) on 12/29/2017 3:48:47 PM Referred By: DR MENON Confirmed By:NEAL JAIMES MD 12/29/17 1548 Date Neal Jaimes MD CC: ROYCE Sarmiento; Nadege Menon Signed 12 LEAD ELECTROCARDIOGRAM Observed: 12/29/2017 Status: F Source: [place] 3:47 PM [facility] REPOSITORY [facility] Cardiovascular Services [address] [place] [address] 12 Lead EKG 12/26/17 0506 MR#: [id number] Acct: [id number] Name: TOMY MUNSON Rep #: [id number] : 1955 62 From: Neal Jaimes MD Attending Dr: Nadege Menon Status: DIS IN Ordering Dr: Kayode Arreaga MD Date: 12/26/17 Location: [facility] Sex: M C Admitted: 12/24/17 Test Reason : AM Blood Pressure : / mmHG Vent. Rate : 071 BPM Atrial Rate : 071 BPM P-R Int : 138 ms QRS Dur : 084 ms QT Int : 362 ms P-R-T Axes : 069 071 072 degrees QTc Int : 393 ms Normal sinus rhythm Normal ECG When compared with ECG of 25-DEC-2017 06:13, MANUAL COMPARISON REQUIRED, DATA IS UNCONFIRMED Confirmed by NEAL JAIMES MD ([id number]), editor in chief newspaper [employer] NICOLAS ([id number]) on 12/29/2017 3:47:14 PM Referred By: ISIDRO Confirmed By:NEAL JAIMES MD 12/29/17 1547 Date Neal Jaimes MD CC: ROYCE Sarmiento; Nadege Menon; Kayode Arreaga MD Signed 12 LEAD ELECTROCARDIOGRAM Observed: 12/29/2017 Status: F Source: [place] 2:53 PM [facility] REPOSITORY [facility] Cardiovascular Services [facility] [address] [place] [address] 12 Lead EKG 12/24/17 0944 MR#: [id number] Acct: [id number] Name: TOMY MUNSON Rep #: [id number] : 1955 62 From: Neal Jaimes MD Attending Dr: N[place] Status: DIS IN Ordering Dr: Bright Joseph MD Date: 12/24/17 Location: [facility] Sex: M C Admitted: 12/24/17 Test Reason : TACHY Blood Pressure : / mmHG Vent. Rate : 166 BPM Atrial Rate : 332 BPM P-R Int : 000 ms QRS Dur : 080 ms QT Int : 270 ms P-R-T Axes : 000 058 075 degrees QTc Int : 448 ms Atrial flutter with 2:[address] abnormality Abnormal ECG Confirmed by NEAL JAIMES MD ([id number]), editor in chief newspaper [employer] NICOLAS ([id number]) on 12/29/2017 2:53:29 PM Referred By: CHRISTIANO/CAIO Confirmed By:NEAL JAIMES MD 12/29/17 1453 Date Neal Jaimes MD CC: ROYCE Sarmiento; Nadege Menon; Bright Joseph MD Signed DISCHARGE SUMMARY Observed: 12/26/2017 Status: F Source: [place] 1:03 PM [facility] REPOSITORY [facility] Medical Records Department [address] [place] [address] Discharge Summary 12/26/17 1254 MR#: [id number] Acct: [id number] Name: TOMY MUNSON Rep #: [id number] : 1955 62 From: Nadege Menon MD PCP: ROYCE Montero Status: DIS IN Y Location: [place] [id number] Discharge Date and Diagnosis Date of Admission: 12/24/17 Date of Discharge: 12/26/17 - Primary Discharge Diagnosis #1 paroxysmal atrial fibrillation/flutter with RVR. #2 acute on chronic anemia required blood transfusion. - Secondary Discharge Diagnosis Chronic Problems (Last Reviewed 12/24/17 @ 09:52 by Jania Vallejo) PEG (percutaneous endoscopic gastrostomy) status (Chronic) Tobacco dependence in remission (Chronic) Pulmonary nodule, left (Chronic) History of laryngeal cancer (Chronic) Non-small cell carcinoma of left lung, stage 3 (Chronic) Dysphagia (Chronic) Chronic anemia (Chronic) Pleural effusion (Chronic) Chemotherapy management, encounter for (Chronic) Hospital Course and Treatment Imaging Results: 12/26/17 08:18 Stress Test Echo w/o Contrast [ECHO] Routine Clinical Impression(s) from Imaging Studies Chest X-Ray 12/24/17 09:51 IMPRESSION: Continued pleural thickening or effusion at the left lung base. Removal of the previously seen left pleural tube. Electronically Signed: Steve Marquez DO at 10:47 EDT Tel , Service support , Dr. Arreaga, cardiology. Operations: None Procedures: EKG, - - Stress echocardiogram. Summary of Care Provided: Patient seen and examined on the day of discharge and appeared to be stable to be discharged home. He denies any complaints. He remained in sinus rhythm and his vital signs were stable. - Physical Exam General: Alert, Oriented x3, Cooperative, No apparent distress. HEENT: Atraumatic, PERRLA, EOMI. Neck: Supple, No JVD, Negative Carotid Bruits, Trachea Midline, Thyroid Normal. Lungs: Decreased breath sounds at the bases, more on the left base, rhonchi, No wheeze, No rales. Cardiovascular: Regular rate, Regular Rhythm, Normal S1, Normal S2, PMI Normal. Abdomen: Bowel Sounds Present, Soft, Non Tender, Non-Distended, No Hepato-splenomegaly. Extremities: No clubbing, No cyanosis, No edema Skin: No rashes, No breakdown Neurological: Neuro grossly intact Vital Signs are stable. Hospital course: The patient is a 62 year old M was referred to the emergency department from the radiation therapy department for elevated heart rate and he was found to have atrial flutter with RVR. This patient has a history of episode of paroxysmal atrial fibrillation in the past. During this admission, he was found to be in atrial flutter and his heart rate was in the 160s. He received 1 dose of IV Cardizem bolus in the ER and he converted back to sinus rhythm remained in sinus rhythm throughout admission. Also, started on Cardizem through the GT tube and he remained in sinus rhythm. His troponin was borderline elevated and flat which is attributed to the episode of the atrial flutter with RVR. She denies any chest pain throughout admission. Cardiology consulted and patient underwent stress echocardiogram that was normal, adequate treadmill echocardiogram and was negative for ischemia by EKG and echocardiographic criteria, ejection fraction was 75%. This patient had a history of chronic anemia secondary to cancer and chemotherapy but during this admission, hemoglobin came down to 6.6 g/dL which is attributed to chemotherapy. There was no evidence of active bleeding. Patient received 2 units of packed RBCs and his hemoglobin went up to 9.4 g/dL. Again, he remained in sinus rhythm and his blood pressure remained stable. We did not start him on anticoagulation because of his history of lung cancer, left hemothorax status post removal of left Pleurx catheter and acute on chronic anemia and he is at high risk for bleeding. She discharged home in a stable medical condition, discharged on Cardizem CD 120 mg p.o. daily for rate control, discharged on aspirin 81 mg p.o. daily, not a candidate for anticoagulation as mentioned above, discharged on iron supplement, continued on his other chronic home medication without any changes, plan to follow-up with cardiology in 2 weeks and recommended follow- up with PCP in 1 week. Discharge Activity: Return to Normal Activity Weight Bearing Status: Weight bearing as tolerated Call your doctor if you observe: Fever of 101 or Higher, Shortness of breath, Dizziness, Fainting spells, Chest pain, Increased palpitations (irregular heartbeat), Uncontrolled pain Home Medications: Medications to take at Discharge Dexamethasone [Decadron] 1 tablet PO DAILY@0800 11/10/17 Levothyroxine [Synthroid] 1 tablet PO DAILY 11/10/17 Ondansetron [Zofran Odt] 4 mg PO Q8H PRN PRN #30 tab 11/17/17 Polyethylene Glycol 3350 [Miralax] 17 gm PO DAILY #30 packet 11/17/17 Magic Mouth Wash 15 ml PO Q6H PRN PRN #240 ml 11/27/17 Omeprazole [Prilosec] 20 mg PO DAILY #30 cap 12/03/17 Albuterol IH (ProAir) [Proair Hfa] 2 puff INHALATION Q6H PRN #1 inhaler 12/18/17 Oxycodone HCl/Acetaminophen [Percocet 5-325] 1 tablet PO Q6H PRN #90 tablet 12/18/17 Lactose-Reduced Food/Fiber [Isosource 1.5 Magno Tube Feed Lq] 750 ml GT TID 12/25/17 Aspirin 81 mg GT DAILY #90 tab.chew 12/26/17 Diltiazem CD [Cardizem CD] 120 mg GT DAILY #90 cap 12/26/17 Ferrous Sulfate 325 mg GT BIDCM #90 tab 12/26/17 Following Prescrptions Were Given to Patient: Aspirin 81 mg GT DAILY #90 tab.chew Diltiazem CD [Cardizem CD] 120 mg GT DAILY #90 cap Ferrous Sulfate 325 mg GT BIDCM #90 tab Primary Care Physician: Alfred Sarmiento NP-C [Primary Care Provider] - Please follow up with your Primary Care Physician in: 1 week. Please Follow Up With: Kayode Arreaga MD When: 2 weeks. please call his office. Please Follow Up With: Alfred Sarmiento NP-C Disposition: Home Minutes spent on discharge:: 32 Patient Condition:: Stable Medical Necessity - Tobacco Use Smoking Status: Former smoker Meaningful Use Info Meaningful Use Diagnoses (Choose all that apply): None applicable Code Visit Inpatient E AND M: 81938 Disch Hosp 12/26/17 1303 <Electronically signed by Nadege Menon MD> Date Nadege Menon MD Cosigner Signature (if applicable): Date CC: CAD ENGINEER-C Alfred Sarmiento; Nadege Menon; Nino Leigh MD; Serina Hollingsworth MD; Kayode Arreaga MD Signed DISCHARGE INSTRUCTION Observed: 12/26/2017 Status: F Source: [place] 10:42 AM [facility] REPOSITORY [facility] Medical Records Department [address] [place] [address] [place] [address] Instructions for Home/Discharge Instructions 12/26/17 1041 MR#: [id number] Acct: [id number] Name: TOMY MUNSON Rep #: [id number] : 1955 62 From: Nadege Menon MD PCP: ROYCE Montero Status: ADM IN You will use the following diet at home:: Other - Continue tube feeds as usual. Discharge Activity: Return to Normal Activity Weight Bearing Status: Weight bearing as tolerated Call your doctor if you observe: Fever of 101 or Higher, Shortness of breath, Dizziness, Fainting spells, Chest pain, Increased palpitations (irregular heartbeat), Uncontrolled pain Allergies/Adverse Reactions: Allergies Iodinated Contrast- Oral and IV Dye [CT] Allergy (Mild, Verified 12/24/17 10:54) Rash Medications to take at Discharge Dexamethasone [Decadron] 1 tablet PO DAILY@0800 11/10/17 Levothyroxine [Synthroid] 1 tablet PO DAILY 11/10/17 Ondansetron [Zofran Odt] 4 mg PO Q8H PRN PRN #30 tab 11/17/17 Polyethylene Glycol 3350 [Miralax] 17 gm PO DAILY #30 packet 11/17/17 Magic Mouth Wash 15 ml PO Q6H PRN PRN #240 ml 11/27/17 Omeprazole [Prilosec] 20 mg PO DAILY #30 cap 12/03/17 Albuterol IH (ProAir) [Proair Hfa] 2 puff INHALATION Q6H PRN #1 inhaler 12/18/17 Oxycodone HCl/Acetaminophen [Percocet 5-325] 1 tablet PO Q6H PRN #90 tablet 12/18/17 Lactose-Reduced Food/Fiber [Isosource 1.5 Magno Tube Feed Lq] 750 ml GT TID 12/25/17 Aspirin 81 mg GT DAILY #90 tab.chew 12/26/17 Diltiazem CD [Cardizem CD] 120 mg GT DAILY #90 cap 12/26/17 Ferrous Sulfate 325 mg GT BIDCM #90 tab 12/26/17 The following prescriptions were given: Aspirin 81 mg GT DAILY #90 tab.chew Diltiazem CD [Cardizem CD] 120 mg GT DAILY #90 cap Ferrous Sulfate 325 mg GT BIDCM #90 tab Primary Care Physician: Alfred Sarmiento NP-C [Primary Care Provider] - Please follow up with your Primary Care Physician in: 1 week. Test Results: Test results from this visit will be discussed in further detail at your follow-up appointment, if applicable. Please Follow Up With: Kayode Arreaga MD When: 2 weeks. please call his office. 12/26/17 1042 <Electronically signed by Nadege Menon MD> Date Nadege Menon MD CC: CAD ENGINEER-C Alfred Arreaga MD STRESS TEST ECHO W/ Observed: 12/26/2017 Status: F Source: [place] CONTRAST 10:03 AM [facility] REPOSITORY [facility] Cardiovascular Services [address] [place] [address] Stress Test Echo w/o Contrast MR#: [id number] Acct: [id number] Name: TOMY MUNSON Rep #: [id number] : 1955 62 From: Nicolas Sherwood MD Primary Care: ROYCE Montero Status: ADM IN Ordering Dr: Nicolas Sherwood MD Sex: M C Reason For Study: AFIB Stress Results Protocol: Nitish Protocol Maximum Predicted HR: 158 bpm Target HR: 134 bpm% Max imum Predicted HR: 107 % DurationHeart Rate Stage (mm:ss) (bpm) BPCom ment Baseline 73 110/70 Stage 1 3:00 11 5 148/60 Stage 2 0:23 16 9 / SARAI B, Increased fatigue, SOB Recovery 77 130/62 Stress Duration: 3:23 mm:ss Maximum Stress HR: 169 bpm Baseline Echocardiogram Findings The estimated ejection fraction is 65 %. Stress Echo Wall motion Data Resting WMIntermediate WMStress WM Resting Wall Motion Wall Motion Stress No regional wall motion No regional wall motion abnormalities noted. abnormalities noted. EKG Data The baseline ECG demonstrates normal sinus rhythm with at rate of _ beats per minute. No clinical angina was noted. During dobutamine infusion, there were no ST or T wave changes noted to suggest ischemia. Interpretation Summary The estimated ejection fraction is 65 %. Normal, adequate, treadmill echocardiogram. Negative for ischemia by EKG and echocardiographic anterior. No anginal symptoms noted. Transient atrial fibrillation at peak exercise which reverted back to normal sinus rhythm. Rare PVC noted. Appropriate blood pressure response to exercise. Below average exercise capacity for age. Test terminated due to dyspnea and attainment of target heart rate. Final LVEF of 75%. No complications. Ordering Physician: Nicolas Sherwood Referring Physician: Vish Crespo Performed By: Laurie Johnson, NIKA, RVT 12/26/17 1002 Date Nicolas Sherwood MD CC: ROYCE Sarmiento; Nicolas Sherwood MD; Nadege Menon Date Dictated: 12/26/17 0834 Date Transcribed: 12/26/17 1002 [employer] Driver: Signed CBC W/DIFF, AUTOMATED Collected: 12/26/2017 Status: F Source: [place] 4:50 AM [facility] REPOSITORY Order Comment: SPECIMEN OBTAINED FROM LINE DRAW TYPE CODE TESTS RESULT OUT OF RANGE REFERENCE UNITS LAB L100.1000 4.4-11.0 K/mm3 Low WBC 3.0 LAB L100.1200 4.6-6.2 M/mm3 Low RBC 3.02 LAB L100.1300 13.0-16.5 g/dl Low HGB 9.2 LAB L100.1400 40-54 % Low HCT 27.3 LAB L100.1500 80-94 fL Normal MCV 90.4 LAB L100.1600 27.0-32.0 pg Normal MCH 30.5 LAB L100.1700 32-36 g/gl Normal MCHC 33.7 LAB L100.1810 11.6-14.6 % High RDW CV 19.9 LAB L100.1820 35.1-43.9 fl High RDW SD 54.3 LAB L100.1900 150-450 K/mm3 Normal PLT 381 LAB L100.2000 6.2-12.0 fl Normal MPV 8.4 LAB L100.2100 47-70 % High NEUT% 84.8 LAB L100.2200 19-41 % Low LY% 4.6 LAB L100.2300 0-10 % Normal MONO% 9.6 LAB L100.2400 0-5 % Normal EO% 0.0 LAB L100.2500 0-1 % Normal BASO% 0.3 LAB L100.2550 0.0-0.9 % Normal IM GRAN % 0.700 Result Comment: IG% - Immature Granulocytes (promyelocytes, myelocytes and metamyelocytes) > 1% indicates that a LEFT SHIFT is Present. LAB L100.2620 2.0-7.7 X10 3/uL Normal Absolute Neut 2.6 LAB L100.2720 0.83-4.51 X10 3/ul Low Absolute Lymph 0.14 LAB L100.4500 Normal SMEAR COMMENT SCANNED Result Comment: LYMPHOPENIA NOTED Performed By: #### L100.0100 #### [place] [facility] [address] [place] [id number] BASIC METABOLIC Collected: 12/26/2017 Status: F Source: [place] PROFILE (BMP) 4:50 AM [facility] REPOSITORY Order Comment: SPECIMEN OBTAINED FROM LINE DRAW TYPE CODE TESTS RESULT OUT OF RANGE REFERENCE UNITS LAB L501.0100 74-106 mg/dL Normal GLU 81 Result Comment: Please note revised GLUCOSE reference range effective 2017. LAB L501.1000 7-18 mg/dL High BUN 22 LAB L501.1100 0.70-1.30 mg/dL Normal CREAT,SERUM 0.72 Result Comment: The validity of the calculated GFR AND GFRAA in patients over 70 years has not been determined. Clinical correlation is essential. LAB L501.1110 >60 mL/min Normal EST GFR 118 Result Comment: Non- GFR Calc LAB L501.1115 >60 mL/min Normal EST GFR - AA 143 Result Comment: GFR Calc LAB L501.1255 ml/min Normal Estimated CRCL 83.36 LAB L501.1300 10-20 RATIO High BUN/CRE 30.6 LAB L501.2200 8.5-10 mg/dL Normal .1 CA 8.6 LAB L501.5300 136-14 mmol/L Normal 5 NA 137 LAB L501.5600 3.5-5. mmol/L Normal 1 K 4.2 LAB L501.5900 98-107 mmol/L Normal CL 99 LAB L501.6100 21.0-3 mmol/L Normal 2.0 CO2 29.0 LAB L501.6200 5-15 Normal GAP 9 Performed By: #### L500.2500 #### [facility] Laboratory [address] [place], [place], [id number] PROTHROMBIN TIME W/INR Collected: 12/26/2017 Status: F Source: GIANNA 4:50 AM [facility] REPOSITORY Order Comment: SPECIMEN OBTAINED FROM LINE DRAW TYPE CODE TESTS RESULT OUT OF RANGE REFERENCE UNITS LAB L300.4150 11.7-14.9 SECONDS Normal PROTIME 13.1 LAB L300.4200 Normal INR 1.0 Performed By: #### L300.3900, L300.4310 #### [facility] [address] [place], [place], [address] PARTIAL THROMBOPLAST Collected: 12/26/2017 Status: F Source: GIANNA TIME 4:50 AM [facility] REPOSITORY Order Comment: SPECIMEN OBTAINED FROM LINE DRAW TYPE CODE TESTS RESULT OUT OF RANGE REFERENCE UNITS LAB L300.4310 24.1-36.2 Seconds Normal PTT 30.3 Performed By: #### L300.3900, L300.4310 #### [facility] [address] [place], [place], [address] HH, HEMOGLOBIN AND Collected: 12/25/2017 Status: F Source: GIANNA HEMATOCRIT 9:25 PM [facility] REPOSITORY Order Comment: Comments: 1 hour after completing the blood transfusion PT IS A NURSE DRAW PT HAS PORT TYPE CODE TESTS RESULT OUT OF RANGE REFERENCE UNITS LAB L100.1300 13.0-16.5 g/dl Low HGB 9.4 LAB L100.1400 40-54 % Low HCT 28.9 Performed By: #### L100.0600 #### [facility] [address] [place], [place], [address] TYPE AND SCREEN Collected: 12/25/2017 Status: F Source: BEECHER 8:30 AM [facility] REPOSITORY Order Comment: CMV NEG? N Number of units to transfuse: 2 Is this product for anemia associated with hemoglobinopathy? N Is pt's Hgb is </= to 7.0 mg/dl or Hct </= 21%? Y Is there an orthostatic change in BP (SBP drop > 10mmHg)? N Is this for PREOP anemia correction prior to anesthesia? N Reason for Ordering Blood: Chronic Is there symptomatic anemia? N Are the blood/blood products to be transfused? Y Is the patient having/had surgery? N Give When? When Ready Irradiated? N Leukodepleted? Y TYPE CODE TESTS RESULT OUT OF RANGE REFERENCE UNITS LAB B10.0800 O Normal BLOOD TYPE GEL NEGATIVE LAB B100.4000 Normal Antibody NEGATIVE Screen Performed By: #### B101.7450 #### [facility] [address] [place], [address] RC Collected: 12/25/2017 Status: F Source: BEECHER 8:30 AM [facility] REPOSITORY TYPE CODE TESTS RESULT OUT OF REFERENCE UNITS RANGE LAB U100.0000 [id number] TRANSFUSED PRODUCT: T AND S with Crossmatch, Red Cells COUNT: 2 Performed By: #### U100.0000 #### [facility] - refer to report for specific site PROTHROMBIN TIME W/INR Collected: 12/25/2017 Status: F Source: BEECHER 4:15 AM [facility] REPOSITORY TYPE CODE TESTS RESULT OUT OF RANGE REFERENCE UNITS LAB L300.4150 11.7-14.9 SECONDS Normal PROTIME 13.5 LAB L300.4200 Normal INR 1.0 Performed By: #### L300.3900, L300.4310 #### [facility] [address] [place], [place], [address] PARTIAL THROMBOPLAST Collected: 12/25/2017 Status: F Source: BEECHER TIME 4:15 AM [facility] REPOSITORY TYPE CODE TESTS RESULT OUT OF RANGE REFERENCE UNITS LAB L300.4310 24.1-36.2 Seconds Normal PTT 28.6 Performed By: #### L300.3900, L300.4310 #### [facility] [address] [place], [place], [address] CBC W/DIFF, AUTOMATED Collected: 12/25/2017 Status: F Source: BEECHER 4:15 AM [facility] REPOSITORY TYPE CODE TESTS RESULT OUT OF RANGE REFERENCE UNITS LAB L100.1000 4.4-11.0 K/mm3 Low WBC 2.5 LAB L100.1200 4.6-6.2 M/mm3 Low RBC 2.31 LAB L100.1300 13.0-16.5 g/dl Low HGB 6.6 LAB L100.1400 40-54 % Low HCT 21.0 LAB L100.1500 80-94 fL Normal MCV 90.9 LAB L100.1600 27.0-32.0 pg Normal MCH 28.6 LAB L100.1700 32-36 g/gl Low MCHC 31.4 LAB L100.1810 11.6-14.6 % High RDW CV 22.5 LAB L100.1820 35.1-43.9 fl High RDW SD 65.6 LAB L100.1900 150-450 K/mm3 Normal PLT 302 LAB L100.2000 6.2-12.0 fl Normal MPV 8.2 LAB L100.2100 47-70 % High NEUT% 87.4 LAB L100.2200 19-41 % Low LY% 5.3 LAB L100.2300 0-10 % Normal MONO% 6.5 LAB L100.2400 0-5 % Normal EO% 0.0 LAB L100.2500 0-1 % Normal BASO% 0.4 LAB L100.2550 0.0-0.9 % Normal IM GRAN % 0.400 Result Comment: IG% - Immature Granulocytes (promyelocytes, myelocytes and metamyelocytes) > 1% indicates that a LEFT SHIFT is Present. LAB L100.2620 2.0-7.7 X10 3/uL Absolute Neut Normal 2.1 LAB L100.2720 0.83-4.51 X10 3/ul Low Absolute Lymph 0.13 LAB L100.4500 SMEAR COMMENT Normal SCAN LAB L100.7300 ANISO Normal 1+ LAB L100.7500 POLYCHROMASIA Normal 1+ LAB L100.7600 HYPOCHROMASIA Normal 1+ LAB L100.7700 MICROCYTES Normal 1+ Performed By: #### L100.0100 #### [facility] [address] [place], [address] BASIC METABOLIC Collected: 12/25/2017 Status: F Source: BEECHER PROFILE ([facility]) 4:15 AM [facility] REPOSITORY TYPE CODE TESTS RESULT OUT OF RANGE REFERENCE UNITS LAB L501.0100 74-106 mg/dL Low GLU 64 Result Comment: Please note revised GLUCOSE reference range effective 2017. LAB L501.1000 7-18 mg/dL High BUN 25 LAB L501.1100 0.70-1.30 mg/dL Normal CREAT,SERUM 0.71 Result Comment: The validity of the calculated GFR AND GFRAA in patients over 70 years has not been determined. Clinical correlation is essential. LAB L501.1110 >60 mL/min Normal EST GFR 119 Result Comment: Non- GFR Calc LAB L501.1115 >60 mL/min Normal EST GFR - AA 144 Result Comment: GFR Calc LAB L501.1255 ml/min Normal Estimated CRCL 84.53 LAB L501.1300 10-20 RATIO High BUN/CRE 35.1 LAB L501.2200 8.5-10 mg/dL Normal .1 CA 8.6 LAB L501.5300 136-14 mmol/L Normal 5 NA 138 LAB L501.5600 3.5-5. mmol/L Normal 1 K 4.2 LAB L501.5900 98-107 mmol/L Normal CL 100 LAB L501.6100 21.0-3 mmol/L Normal 2.0 CO2 29.0 LAB L501.6200 5-15 Normal GAP 9 Performed By: #### L500.2500 #### [facility] [address] [place], [address] CONSULTATION Observed: 12/24/2017 Status: F Source: BEECHER 9:20 PM [facility] REPOSITORY [facility] Medical Records Department [address] [place] [address] Consultation 12/24/172108 MR#: [id number] Acct: [id number] Name: TOMY MUNSON Rep #: [id number] : 1955 62 From: Kayode Arreaga MD PCP: ROYCE Montero Status: ADM IN Y [id number] Problem List (1) Atrial fibrillation and flutter Status: Acute (2) Non-small cell carcinoma of left lung, stage 3 Status: Chronic (3) Chronic anemia Status: Chronic Reason for Consult Date of Consultation: 12/24/17 History of Present Illness: The patient is a 62 year old white male with a history of paroxysmal atrial fibrillation/flutter who presents for recurrent atrial fibrillation/flutter and concerns of indeterminate troponin I levels superimposed upon a history of underlying lung carcinoma with ongoing chemotherapy and radiation therapy and pleural effusion status post placement of an subsequent removal (secondary to concerns of infection) of a Pleurx catheter. He states he was at radiation therapy today. During his evaluation he noted the medical team noted his heart rate was elevated. They referred him to the [facility] emergency department. There he was found to have recurrent paroxysmal atrial fibrillation/flutter. He was treated with IV diltiazem and regaining sinus rhythm. He states he did not sense his rapid rate. He had no ongoing concerns of chest discomfort or change in his respiratory status. There was no sensation of near syncope or syncope. He was hopeful to be released home for continued outpatient follow- up. However, a troponin I level was taken in the emergency department and was found to be indeterminate. Thus he was placed in the hospital for further evaluation and care. At the present time he is in sinus rhythm. He states he still has no concerns of chest discomfort or any change in his respiratory status. He has denied any obvious palpitations or sensations of near syncope or having any previous syncopal event. He states he cannot take oral medications well and thus his medications and his nourishment has to be placed through his PEG tube. He is also still in need of additional chemotherapy and radiation therapy. He notes his Pleurx catheter was removed secondary to concerns of infection.. [] Past Medical History Allergies/Adverse Reactions: Allergies Iodinated Contrast- Oral and IV Dye [CT] Allergy (Mild, Verified 12/24/17 10:54) Rash Home Medications: Ambulatory Orders Medication Instructions Recorded Dexamethasone [Decadron] 1 tablet PO DAILY@0800 11/10/17 Levothyroxine [Synthroid] 1 tablet PO DAILY 11/10/17 Ondansetron [Zofran Odt] 4 mg PO Q8H PRN PRN #30 tab 11/17/17 Past Medical History (Chronic Problems): Chronic Problems (Last Reviewed 12/24/17 @ 09:52 by Jania Vallejo) PEG (percutaneous endoscopic gastrostomy) status (Chronic) Tobacco dependence in remission (Chronic) Pulmonary nodule, left (Chronic) History of laryngeal cancer (Chronic) Non-small cell carcinoma of left lung, stage 3 (Chronic) Dysphagia (Chronic) Chronic anemia (Chronic) Pleural effusion (Chronic) Chemotherapy management, encounter for (Chronic) Surgical History: herniorrhaphy, - - PEG tube placement. Psychiatric History: Anxiety - *Family History Paternal Family History: Family History (Last Reviewed 12/24/17 @ 09:52 by Jania Vallejo) Father Heart disease History Items: Heart Disease - Maternal Family History: Family History (Last Reviewed 12/24/17 @ 09:52 by Jania Vallejo) Father Heart disease History Items: No pertinent history Lives: Alone Smoking Status: Former smoker Alcohol: None Drugs: None Review of Systems - Review of Systems General: Reports: Weight Loss. Denies: Fever, Fatigue, Night Sweats Cardiovascular: Denies: Chest Discomfort, Shortness of Breath, Orthopnea, PND, Peripheral Edema, Palpitations, Lightheadedness, Dizziness, Near Syncope, Syncope Respiratory: Denies: Cough, Sputum Production, Hemoptysis Gastrointestinal: Denies: Hematemesis, Hematochezia, Melena Genitourinary: Denies: Dysuria, Hematuria Skin: Denies: Rash Subjectve: This is a thin cachectic appearing 62-year-old white male who appears to be resting comfortably at the moment in no acute distress. Objective: Vital Signs Temp Pulse Resp BP Pulse Ox 97.9 F 79 16 97/50 L 100 12/24/17 18:53 12/24/17 19:00 12/24/17 18:53 12/24/17 18:53 12/24/17 18:53 Oxygen Flow Rate (L/min) 2 Oxygen Delivery Method Nasal Cannula Weight: 122 lb 2.177 oz Body Mass Index (BMI) 19.1 Intake and Output for Last 24 Hours Intake Total 133 / 133 Output Total 250 / 250 Balance -117 / -117 General: Awake, Alert, Oriented x 3, No Acute Distress Neck: No JVD Lungs: Diminished Reinaldo Bases Cardiovascular: Regular Rhythm, Normal S1, Normal S2 Abdomen: Bowel Sounds Present, Soft, Non Tender Extremities: No edema Neurological: No Focal Motor or Sensory Deficit Psych/Mental Status: Appropriate, Normal Affect 12/24/17 14:10: Magnesium 2.0 12/24/17 14:10: Troponin I 0.069 H 12/24/17 16:35: Troponin I 0.060 H Rhythm: Sinus rhythm EKG: Atrial flutter with nonspecific ST segment abnormality ECHO: 11/11/2017: Left ventricle normal with an LVEF of 55%; trivial MR/TR; mild diffuse aortic valve thickening; trivial OR; echolucency compatible with a pleural effusion; estimated RV systolic pressure of 31 mmHg; unable to assess diastolic dysfunction Chest x-ray: Preliminary evaluation: Right lung: Hyperinflated; left lung: Continued evidence of left pleural effusion: Please see official report Assessment/Plan 1. Paroxysmal atrial fibrillation/flutter The patient has had a recurrence of his paroxysmal atrial dysrhythmia with atrial flutter. He appeared without obvious symptoms or hemodynamic compromise. He was treated with IV diltiazem and regain sinus rhythm. At the present time he is being monitored in sinus rhythm. He is being assessed based upon an indeterminate troponin I level which upon repeat has remained indeterminant. His case was reviewed with him. At the present time the etiology of the indeterminate troponin I level may be secondary to a type II event with supply demand mismatch secondary to the underlying atrial dysrhythmia with rapid ventricular response versus a primary acute cardiovascular event without other associated symptoms or objective findings. At the same time other potential noncardiovascular etiologies cannot necessarily be excluded. From a cardiac standpoint he is going to be monitored. He is going to initiate medical management with diltiazem therapy as he has responded to this with respect to his atrial dysrhythmia. He has not been on anticoagulant therapy secondary to his underlying lung carcinoma, anemia, and his need for previous invasive evaluation and care. This could change depending upon his future clinical course. A discussion was held with him as to further evaluation care of his indeterminate troponin I level for the possibility of underlying CAD either noninvasively or invasively. At the present time he is willing to undergo a noninvasive evaluation such as a pharmacologic stress nuclear imaging study. He states that he has not sure at this time, and would have to give consideration to, if he would require further evaluation with a diagnostic cardiac catheterization as to whether or not he would want to do that noting his other medical conditions. 2. 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 It appears he requires continued chemotherapy and radiation therapy. 3. Anemia He remains anemic. This may be anemia of chronic disease if he has no obvious deficiencies or obvious hemorrhagic issues. Depending upon his H AND H he may eventually require PRBCs to increase his oxygen carrying capacity and assist with any underlying cardiovascular conditions. Comment: The patient's case has been discussed and reviewed with the patient and previously with the [facility] emergency department staff. 12/24/172119 <Electronically signed by Kayode Arreaga MD> Date Kayode Arreaga MD Cosigner Signature (if applicable): Date CC: ROYCE Sarmiento; Kayode Arreaga MD Signed TROPONIN-I Collected: 12/24/2017 Status: F Source: BEECHER 4:35 PM [facility] REPOSITORY Order Comment: 'TROP' Serial specimen #1, #2 or #3: 3 TYPE CODE TESTS RESULT OUT OF RANGE REFERENCE UNITS LAB L501.4010 <0.045 ng/mL High 0.060 TROPONIN-I Result Comment: TROPONIN-I EXPECTED VALUES <0.045 Negative 0.045 - 0.590 Consistent with Cardiac Damage > OR = 0.600 Critical Value Not every elevated troponin is indicative of PR. These values should be used with clinical judgement in examining the patient's clinical picture for diagnosis. To establish a diagnosis of PR versus myocardial injury, there must be a demonstrated rise and/or fall in the troponin values, in addition to ischemic symptoms, EKG changes, new regional wall motion abnormality, and/or angiographical evidence. PLEASE NOTE: REFERENCE RANGES EDITED 17 Performed By: #### L501.4010 #### [facility] [address] [place], [address] MAGNESIUM Collected: 12/24/2017 Status: F Source: BEECHER 2:10 PM [facility] REPOSITORY Order Comment: PT HAS PORT NURSE DRAW. TYPE CODE TESTS RESULT OUT OF RANGE REFERENCE UNITS LAB L501.5200 1.6-2.6 mg/dL Normal MG 2.0 Performed By: #### L501.5200 #### [facility] [address] [place], [address] TROPONIN-I Collected: 12/24/2017 Status: F Source: BEECHER 2:10 PM [facility] REPOSITORY Order Comment: 'TROP' Serial specimen #1, #2 or #3: 2 TYPE CODE TESTS RESULT OUT OF RANGE REFERENCE UNITS LAB L501.4010 <0.045 ng/mL High 0.069 TROPONIN-I Result Comment: TROPONIN-I EXPECTED VALUES <0.045 Negative 0.045 - 0.590 Consistent with Cardiac Damage > OR = 0.600 Critical Value Not every elevated troponin is indicative of PR. These values should be used with clinical judgement in examining the patient's clinical picture for diagnosis. To establish a diagnosis of PR versus myocardial injury, there must be a demonstrated rise and/or fall in the troponin values, in addition to ischemic symptoms, EKG changes, new regional wall motion abnormality, and/or angiographical evidence. PLEASE NOTE: REFERENCE RANGES EDITED 17 Performed By: #### L501.4010 #### [facility] [address] [place], [address] RADIATION ONCOLOGY Observed: 12/24/2017 Status: F Source: BEECHER VISIT 12:58 PM [facility] REPOSITORY [facility] [address] 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 Unfortunately due to treatment delays the lung cancer appears to have progressed and caused complete collapse of the left lung romeo and interventional pulmonology was unable to place stent. Plan was made to complete definitive chemoradiation therapy consisting of 6000 cGy in 30 fractions with concurrent Carbo/Taxol. Treatment Data: Treatment Site: Left lung and left hilar disease Current total dose/Total dose planned: 3400 cGy / 6000 cGy Fraction number: Chemotherapy: Weekly Carbo/Taxol Subjective: Patient reports doing well overall. Patient previously was draining Pleurx catheter daily and getting out about 200-400 cc per day. From 12/07-12/13 he was admitted to the hospital for neutropenia and diagnosed with MRSA infected chest tube which was removed. He reports increased fatigue but is improving since discharge. CT chest on 12/11 showed continued consolidation in the left lower hemithorax but improvement elsewhere. Radiation therapy was held from 12/08-12/12 due to the neutropenia. Nutrition: PEG tube dependent, reduced about a week ago due to dietary recommendation. weight stable this week. Only water by mouth Fatigue: moderate Pain: occasional CW pain, mild Resp: occasional SOB (mild), occasional cough, no hemoptysis. breathing improved some this week. Swallowing: just fluids since previous H AND N cancer chemoradiation. no pain with fluids. Denies Chest pain or worsened SOB Height/Weight/BMI: Height: 5 ft 7 in Weight: 56.608 kg; 11/26/17: 124.8 lbs, 12/03/17: 127.5 lbs, 12/15/17: 125.9 lbs, 12/17/17: 123.6 lbs, 12/24/17: 123.9 lbs Vital Signs BP: 118/73 T: 98.3 F P: 85 O2 sat: 96% RA Objective: Gen: NAD ENT: mouth dry, no thrush Resp: improved upper left lung sounds with good air movement. CTA on the right without w/r/r CV: tachycardia of about 160 bpm, sounds regular rhythm Abd: PEG tube and Pleurx Catheter in place Skin: no erythema Laboratory Tests WBC Hgb Plt Count Absolute Neuts (auto) 1.4 L 0.4 L 0.3 L WBC 5.8 Hgb 7.4 L Plt Count 102 L Absolute Neuts (auto) 0.1 L 1.4 L 4.7 Laboratory Tests Absolute Neuts (auto) 8.2 H 6.1 Troponin I < 0.015 Absolute Neuts (auto) Troponin I 0.057 H Assessment: Tolerating radiation therapy well overall. Left lung has re-expanded superiorly in the last couple days. GERD Breathing stable Neutropenia without fever: jennifer of 0.1, improved. Tachycardia: sent to ED and found to have Afib with RVR, Plan: Due to lung re-expansion, completed verification simulation re-plan was completed for the final 16 fractions. Discussed potential radiation toxicities and their timing Omeprazole through PEG tube neutropenia resolved. Admitted for Afib with RVR and has elevated troponin today after treatment, will monitor and evaluate for treatment tomorrow. Continue treatment as planned, follow-up next week or sooner if needed. Thank you for allowing me to participate in the management and care of your patient. If I may answer any questions in the interim, please do not hesitate to contact me at any time. Vish Crespo DO, MS [employer], Department of Radiation Oncology [facility] 12/24/17 1258 <Electronically signed by Vish Crespo DO> Date Vish Crespo DO Cosigner Signature: Date (if applicable) CC: HISTORY AND PHYSICAL Observed: 12/24/2017 Status: F Source: BEECHER EXAM 11:58 AM [facility] REPOSITORY [facility] Medical Records Department [address] [place] [address] History and Physical 12/24/17 1139 MR#: [id number] Acct: [id number] Name: TOMY MUNSON Rep #: [id number] : 1955 62 From: Nadege Menon MD PCP: ROYCE Montero Status: ADM IN Location: [place] [address] Problem List (1) PEG (percutaneous endoscopic gastrostomy) status Status: Chronic (2) History of laryngeal cancer Status: Chronic (3) Non-small cell carcinoma of left lung, stage 3 Status: Chronic (4) Dysphagia Status: Chronic (5) Chronic anemia Status: Chronic History of Present Illness Date of Admission: 12/24/17 Chief Complaint: Fast heart rate. The patient is a 62 year old M with past medical history as mentioned above was sent to the emergency department from radiotherapy department because of elevated heart rate. Today, patient came to the radiation treatment department for radiotherapy for non-small cell lung cancer and he was noted to have heart rate in the 160s. He was sent to ER for evaluation. The patient denied any symptoms. He denied chest pain, shortness of breath, palpitation, dizziness, lightheadedness, syncope or presyncope. Patient denies any history of atrial fibrillation or flutter, no history of CAD. In his chart, atrial flutter was listed. He has a history of non-small cell lung cancer, currently on chemotherapy and radiation and his last chemotherapy was last and he supposed to get radiation treatment today. He had history of chronic dysphagia status post PEG tube placement and patient has been on the drinking water by mouth and he takes most of his medications through the PEG tube. He has a history of chronic anemia, baseline hemoglobin has been around 8 g/dL since October, and it is normocytic anemia likely due to anemia of chronic disease secondary to cancer. He had history of hypothyroidism and he has been on levothyroxine. In the emergency room, patient was found to be in atrial flutter. He received 1 dose of IV Cardizem bolus and he converted back to sinus rhythm. At this time, heart rate has been in the 90s, blood pressure is borderline. Patient is asymptomatic. Routine blood work was remarkable for hemoglobin of 8.2 g/dL, sodium of 133, otherwise normal. Troponin is 0.057. EKG revealed atrial flutter with heart rates in the 160s, no acute ischemic changes. Chest x-ray showed left pleural thickening, no acute infiltrate or consolidation. He is being admitted for atrial flutter with RVR for evaluation. Past Medical History Past Medical History (Chronic Problems): Chronic Problems (Last Reviewed 12/24/17 @ 09:52 by Jania Vallejo) PEG (percutaneous endoscopic gastrostomy) status (Chronic) Tobacco dependence in remission (Chronic) Pulmonary nodule, left (Chronic) History of laryngeal cancer (Chronic) Non-small cell carcinoma of left lung, stage 3 (Chronic) Dysphagia (Chronic) Chronic anemia (Chronic) Pleural effusion (Chronic) Chemotherapy management, encounter for (Chronic) Medical History: Medical History (Last Reviewed 12/24/17 @ 09:52 by Jania Vallejo) Anemia D64.9 Chicken pox B01.9 Dysphagia R13.10 Hypernatremia E87.0 Hyponatremia E87.1 Hypothyroidism E03.9 LEFT WRIST SURGERY Laryngeal cancer C32.9 Lymphadenitis I88.9 Measles B05.9 Mumps B26.9 Status post insertion of percutaneous endoscopic gastrostomy (PEG) tube Z93.1 port placement Allergies Iodinated Contrast- Oral and IV Dye [CT] Allergy (Mild, Verified 12/24/17 10:54) Rash Home Medications: Ambulatory Orders Medication Instructions Recorded Dexamethasone [Decadron] 1 tablet PO DAILY@0800 11/10/17 Levothyroxine [Synthroid] 1 tablet PO DAILY 11/10/17 Ondansetron [Zofran Odt] 4 mg PO Q8H PRN PRN #30 tab 11/17/17 Surgical History: Surgical History (Last Reviewed 12/24/17 @ 09:52 by Jania Vallejo) History of hernia repair Z98.890, Z87.19 History of thoracentesis Z98.890 Surgical History: herniorrhaphy, - - PEG tube placement. Psychiatric History: Anxiety Lives: Alone Smoking Status: Former smoker - *Family History Paternal Family History: Family History (Last Reviewed 12/24/17 @ 09:52 by Jania Vallejo) Father Heart disease History Items: Heart Disease - Maternal Family History: Family History (Last Reviewed 12/24/17 @ 09:52 by Jania Vallejo) Father Heart disease History Items: No pertinent history Review of Systems Constitutional: Denies: Anorexia, Chills, Fever, Weakness Eyes: Denies: Blurred vision, Double vision, Drainage, Redness HEENT: Denies: Difficulty Hearing, Ear Pain, Eye Pain, Nasal Congestion, Sore Throat Cardiovascular: Denies: Chest Pain, Chest Pressure, Chest Tightness, Heaviness, Light Headedness, Palpitations, Syncope Respiratory: Denies: Cough, Pleuritic Pain, Shortness of Breath, Sputum production, Wheezing Gastrointestinal: Denies: Abdominal Pain, Constipation, Diarrhea, Nausea, Vomiting Genitourinary: Denies: Dysuria, Frequency, Hematuria Musculoskeletal: Denies: Arm Pain, Back Pain, Foot Pain Skin: Denies: Dryness, Rash Neurological: Denies: Balance problems, Double vision, Change in Speech, Slurred speech, Confusion, Focal weakness, Headaches, Incoordination Psychiatric: Denies: Anxiety, Depression Endocrine: Denies: Change in Body Habitus, Polydipsia VTE Information - Inpt Only VTE Present on Admission: No VTE Mechan Device Prophylaxis: None VTE Pharm Prophylaxis ordered?: Yes - Physical Exam General: Alert, Oriented x3, Cooperative, No apparent distress HEENT: Atraumatic, PERRLA, EOMI, Normocephalic Oral: Moist Mucosa, No Gingival or Mucosal Lesions/ Ulcerations Neck: Supple, No JVD, Negative Carotid Bruits, Trachea Midline, Thyroid Normal Size and Texture Lungs: No wheeze, No rales, Diminished, Rhonchi, - - Diminished breath sounds bilateral, more at the bases. Cardiovascular: Regular rate, Regular Rhythm, Normal S1, Normal S2, No murmurs, PMI Normal Abdomen: Bowel Sounds Present, Soft, Non Tender, Non-Distended, No Hepato-splenomegaly, - - PEG tube in place. Extremities: No clubbing, No cyanosis, No edema Skin: No rashes, No breakdown Lymphatic: No Cervical, Supraclavicular, or Inguinal Adenopathy Neurological: Cranial nerves II-XII grossly intact, Motor Exam 5/5 strength throughout Psych/Mental Status: Normal Affect, Appropriate, Alert and oriented to time, place, person, mood and affect Vital Signs Temp Pulse Resp BP Pulse Ox 98.2 F 87 14 98/70 99 12/24/17 09:36 12/24/17 11:25 12/24/17 11:25 12/24/17 11:25 12/24/17 11:25 Oxygen Flow Rate (L/min) 2 Oxygen Delivery Method Room Air Weight: 123 lb Body Mass Index (BMI) 19.3 Laboratory Tests Past 24 Hrs WBC 6.3 RBC 2.77 L Clinical Impression(s) from Imaging Studies Chest X-Ray 12/24/17 09:51 IMPRESSION: Continued pleural thickening or effusion at the left lung base. Removal of the previously seen left pleural tube. Electronically Signed: Steve Marquez DO at 10:47 EDT Tel , Service support , Assessment/Plan All Active Problems (Last Reviewed 12/24/17 @ 09:52 by Jania Vallejo) Atrial fibrillation and flutter (Resolved) This is a 62 years old male patient was sent to emergency department from the radiation therapy department for elevated heart rate, found to have atrial flutter with RVR and is being admitted for treatment and evaluation. #1 atrial flutter with RVR: Unclear of this is new onset or patient has a history of. In the ED, patient received dose of IV Cardizem and he converted back to sinus rhythm. EKG revealed atrial flutter with RVR, no acute ischemic changes. At this time, heart rate has been in the 90s, blood pressure is borderline, patient is asymptomatic. Troponin is borderline elevated. He had 2D echocardiogram back in October, that revealed ejection fraction of 55%, RVSP of 31 and no significant valvular heart disease. His TSH was normal on October,. Patient has no history of heart disease in the past. Plan: Admit to PCU, cardiac monitoring, serial cardiac enzymes, repeat EKG tomorrow morning, repeat CBC and BMP tomorrow, check serum magnesium, cardiology consult, PT OT evaluation and treatment. His [id number]- VASc score is 1 based on his age, he is at low to moderate risk of stroke and he is a candidate for antiplatelets only or anticoagulation. #2 non-small cell lung cancer: Currently on chemotherapy and radiation. Last chemotherapy was last and he was getting radiation treatment today. At this time, stable, recommend follow-up with oncology as outpatient. #3 recent history of MRSA infected/cellulitis of left Pleurx catheter site: Patient mentioned that he completed his antibiotics today morning. Incision site of the left Pleurx catheter is clean, dry, no erythema and no evidence of infection. #4 left pleural effusion: Status post removal of left Pleurx catheter, resolved. #5 chronic anemia: It is normocytic anemia due to anemia of chronic disease secondary to cancer. Baseline hemoglobin has been around 8 g/dL. Admission hemoglobin is 8.2 g/dL, stable at baseline. No indication for transfusion. #6 chronic dysphagia: Status post PEG tube placement, continue with tube feeds, nutrition consult. 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 #8 DVT prophylaxis: Subcu Lovenox. This note was generated with [employer] dictation software. It may contain incorrect words, spelling, and punctuation that were not noted in checking the note before signing. Code Visit Inpatient E AND M: 52762 Init Hosp L3 12/24/17 1158 <Electronically signed by Nadege Menon MD> Date Nadege Menon MD Cosigner Signature: Date (if applicable) CC: ROYCE Sarmiento; Roxyaraceli Menon Signed EMERGENCY DEPARTMENT Observed: 12/24/2017 Status: F Source: BEECHER SUMMARY 11:27 AM [facility] REPOSITORY [facility] Medical Records Department [address] [place] [address] Emergency Department Summary 12/24/17 1023 MR#: [id number] Acct: [id number] Name: TOMY MUNSON Rep #: [id number] : 1955 62 From: Bright Joseph MD PCP: ROYCE Montero Status: REG ER - ER Visit Summary Date of Service: 12/24/17 Chief Complaint: Elevated heart rate History of Present Illness: The patient is a 62 M who presents with an elevated heart rate. Patient was here getting radiation treatment for his non-small cell lung cancer. They noted that his heart rate was elevated. He has no chest pain, shortness of breath or feels any palpitations. He tells me he has no history of atrial fibrillation/flutter, however upon chart review he does have a diagnosis of this being resolved. This was entered by Dr. Arreaga. Patient was here last week for a infected Pleurx. It grew out MRSA. He states he took his last antibiotic last night. He denies any fevers or pain in that area. Physical Examination: Vital signs reviewed. HEENT exam unremarkable. Heart is tachycardic and at times irregular and at times regular rhythm without murmurs. Lungs are clear to auscultation. There is an old scar on the left side of the chest. It is not erythematous. No draining. Abdomen is soft and nontender. PEG tube in the left upper quadrant is unremarkable. Extremities reveal no edema. Skin exam normal. Neurologic exam normal. Test Results: EKG was atrial flutter with a rate of 166. Hemoglobin 8.2. Sodium 133, chloride 95. Troponin is 0.057. Chest x-ray reveals some chronic pleural thickening Emergency Department Course and Treatment: Patient was given Cardizem and afterwards he converted to a normal sinus rhythm. I discussed this with Dr. Arreaga, on-call for cardiology. He would recommend admission to the elevated troponin. This was discussed with hospitalist for admission Treatment Plan: [] Disposition: Admit Impression: [place] with RVR This note was generated with [employer] dictation software. It may contain incorrect words, spelling, and punctuation that were not noted in review of the chart prior to signing ED Disposition - Plan for ED Patient: Chief Complaint: Palpitations Referrals: Alfred Sarmiento, ROYCE [Primary Care Provider] - What to do if you have Problems For any increased pain, shortness of breath, bleeding, nausea or vomiting, chest pain, or any unexpected problems, contact your Primary Care Provider. Call [facility] ([phone]) or report to the closest Emergency Room. Call 911 if necessary. 12/24/17 1127 <Electronically signed by Bright Joseph MD> Date Bright Joseph MD Cosigner Signature (If Indicated): Date CC: ROYCE Sarmiento CBC W/DIFF, AUTOMATED Collected: 12/24/2017 Status: F Source: BEECHER 9:57 AM [facility] REPOSITORY TYPE CODE TESTS RESULT OUT OF RANGE REFERENCE UNITS LAB L100.1000 4.4-11.0 K/mm3 Normal WBC 6.3 LAB L100.1200 4.6-6.2 M/mm3 Low RBC 2.77 LAB L100.1300 13.0-16.5 g/dl Low HGB 8.2 LAB L100.1400 40-54 % Low HCT 25.4 LAB L100.1500 80-94 fL Normal MCV 91.7 LAB L100.1600 27.0-32.0 pg Normal MCH 29.6 LAB L100.1700 32-36 g/gl Normal MCHC 32.3 LAB L100.1810 11.6-14.6 % High RDW CV 22.4 LAB L100.1820 35.1-43.9 fl High RDW SD 62.1 LAB L100.1900 150-450 K/mm3 Normal PLT 444 LAB L100.2000 6.2-12.0 fl Normal MPV 8.2 LAB L100.2100 47-70 % High NEUT% 95.9 LAB L100.2200 19-41 % Low LY% 0.9 LAB L100.2300 0-10 % Normal MONO% 2.4 LAB L100.2400 0-5 % Normal EO% 0.0 LAB L100.2500 0-1 % Normal BASO% 0.3 LAB L100.2550 0.0-0.9 % Normal IM GRAN % 0.500 Result Comment: IG% - Immature Granulocytes (promyelocytes, myelocytes and metamyelocytes) > 1% indicates that a LEFT SHIFT is Present. LAB L100.2620 2.0-7.7 X10 3/uL Normal Absolute Neut 6.1 LAB L100.2720 0.83-4.51 X10 3/ul Low Absolute Lymph 0.06 LAB L100.4500 Normal SMEAR COMMENT COMMENT Result Comment: SLIDE SCANNED - LYMPHOPENIA, 1+ ANISO. Performed By: #### L100.0100 #### [facility] [address] [place], [place], [id number] PROTHROMBIN TIME W/INR Collected: 12/24/2017 Status: F Source: BEECHER 9:57 AM [facility] REPOSITORY TYPE CODE TESTS RESULT OUT OF RANGE REFERENCE UNITS LAB L300.4150 11.7-14.9 SECONDS Normal PROTIME 13.0 LAB L300.4200 Normal INR 1.0 Performed By: #### L300.3900 #### [facility] [address] [place], [address] BASIC METABOLIC Collected: 12/24/2017 Status: F Source: BEECHER PROFILE (BMP) 9:57 AM [facility] REPOSITORY TYPE CODE TESTS RESULT OUT OF RANGE REFERENCE UNITS LAB L501.0100 74-106 mg/dL High GLU 119 Result Comment: Fasting Glucose result from 100 to 125 mg/dL suggests IMPAIRED HOMEOSTASIS per A.D.A. criteria. Please note revised GLUCOSE reference range effective 2017. LAB L501.1000 7-18 mg/dL High BUN 29 LAB L501.1100 0.70-1.30 mg/dL Normal CREAT,SERUM 0.92 Result Comment: The validity of the calculated GFR AND GFRAA in patients over 70 years has not been determined. Clinical correlation is essential. LAB L501.1110 >60 mL/min Normal EST GFR 89 Result Comment: Non- GFR Calc LAB L501.1115 >60 mL/min Normal EST GFR - AA 107 Result Comment: GFR Calc LAB L501.1255 ml/min Normal Estimated CRCL 65.70 LAB L501.1300 10-20 RATIO High BUN/CRE 31.6 LAB L501.2200 8.5-10 mg/dL Normal .1 CA 8.7 LAB L501.5300 136-14 mmol/L Low 5 NA 133 LAB L501.5600 3.5-5. mmol/L Normal 1 K 4.4 LAB L501.5900 98-107 mmol/L Low CL 95 LAB L501.6100 21.0-3 mmol/L Normal 2.0 CO2 30.0 LAB L501.6200 5-15 Normal GAP 8 Performed By: #### L500.2500, L501.4010 #### [facility] [address] [place], [place], [id number] TROPONIN-I Collected: 12/24/2017 Status: F Source: [place]ER 9:57 AM [facility] REPOSITORY TYPE CODE TESTS RESULT OUT OF RANGE REFERENCE UNITS LAB L501.4010 <0.045 ng/mL High 0.057 TROPONIN-I Result Comment: TROPONIN-I EXPECTED VALUES <0.045 Negative 0.045 - 0.590 Consistent with Cardiac Damage > OR = 0.600 Critical Value Not every elevated troponin is indicative of PR. These values should be used with clinical judgement in examining the patient's clinical picture for diagnosis. To establish a diagnosis of PR versus myocardial injury, there must be a demonstrated rise and/or fall in the troponin values, in addition to ischemic symptoms, EKG changes, new regional wall motion abnormality, and/or angiographical evidence. PLEASE NOTE: REFERENCE RANGES EDITED 17 Performed By: #### L500.2500, L501.4010 #### [facility] [address] [place], [address] CHEST 1 VIEW Observed: 12/24/2017 Status: F Source: BEECHER (PORTABLE) 9:52 AM [facility] REPOSITORY [facility] Imaging [place] [address] Chest 1 View (Portable) MR#: [id number] Acct: [id number] Name: TOMY MUNSON Rep #: [id number] : 1955 M 62 From: Steve Marquez DO PCP: ROYCE Montero Status: REG ER Study: Chest 1 View (Portable) Date of Exam: 12/24/17 Exam# [id number] Ordering Dr: Bright Joseph MD STUDY: X-RAY CHEST REASON FOR EXAM: Male, 62 years old. Irregular heart rate, status post radiation treatment TECHNIQUE: Single AP portable view of the chest. COMPARISON: 12/07/2017 FINDINGS: Cardiac monitoring leads overlie the chest. Implanted central catheter is seen overlying the left chest with the tip in the SVC. The previously seen pleural catheter at the left lung base has been removed. The right lung is hyperinflated. There is volume loss within the left lung. There is left pleural thickening or left pleural effusion. Normal size heart. Normal mediastinum and tashia. Normal visualized pulmonary arteries. Normal visualized aortic arch and descending thoracic aorta. Normal visualized thoracic spine. Normal visualized ribs, clavicles, and shoulders. There is no demonstrated abnormality of the visualized soft tissue structures of the upper abdomen. RAD/Chest 1 View (Portable) IMPRESSION: Continued pleural thickening or effusion at the left lung base. Removal of the previously seen left pleural tube. Electronically Signed: Steve Marquez DO at 10:47 EDT Tel , Service support , CC: ROYCE Sarmiento; Bright Joseph MD [employer]: Signed ONCOLOGY VISIT REPORT Observed: 12/19/2017 Status: F Source: GIANNA 11:28 AM [facility] REPOSITORY [facility] [place] [address] OFFICE VISIT Date of Service: 12/18/17 1043 MR#: [id number] Acct: [id number] Name: TOMY MUNSON Rep #: [id number] : 1955 From: Nino Leigh MD Age/Sex: 62/M Location: [facility] Status: Signed Subjective - Date of Service Date of Service:: 12/18/17 - Chief Complaint F/u for NSCLC and chemotherapy. - History of Present Illness Mr. 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 He was treated with concurrent chemotherapy and Radiation. He received 3 cycles of Cisplatin 100mg/m2 from 07/04/2015-08/09/2015. He had a PET/CT done on 11/30/2015 which showed no hypermetabolic activity. PET/CT on 09/30/2016 demonstrated hypermetabolic activity within the left lower lobe and at the level of the laryngeal structures. Underwent biopsies of larynx on 11/15/16 under the care of Dr. Ascencio, pathology of which were negative. Had CT guided bx of LLL nodule on 01/02/[address] scan of chest on 09/16/2017 showed increasing Left lower lobe mass and new Left hilar mass. He was referred for EBUS + biopsy, it was done on 09/26/2017 and showed squamous cell cancer. MRI brain done on 10/14/2017 was negative for brain metastases. PET/CT on 10/16/2017 shows new hypermetabolic activity in left hemithorax with activity in precarinal area mediastinum, left perihilar area and pleural effusion. He had increase in Pleural fluid, thoracentesis showed no malignant cells. Pleurx cath was placed. He was transferred to [facility] for bronchial stenting but could not be done. He was staged as NSCLC stage IIIB. He started chemotherapy with Carboplatin and Taxol every 28 days on 11/20/2017 and Radiation therapy on 11/24/2017. He was admitted last week for sepsis and infected Pleurx catheter which was removed. Comes for C2 of Carboplatin and Taxol. Feels well. - Past Medical/Social History Past Medical History Past Medical History: Anemia Other Past Medical History: Hyponatremia Hypothyroidism Dysphagia Hypernatremia Lymphadenitis Measles Mumps Chicken Pox Cancer: Lung cancer,Oral cancer Other Cancer History: hx of laryngeal ca 06/21/15 treated w/chemo and radiation. Past Surgical History Surgical: Hernia repair Other Surgical History: Left Wrist surgery Peg Tube Family History Paternal Past Medical History: Heart disease Maternal Past Medical History: Unknown Social History Social History: No changes Smoking Status Former smoker Review of Systems Constitutional:: Reports: - - + hoarseness. Denies: Fever, Sweats, Weight loss, Appetite change, Chills Cardiovascular:: Denies: Chest pain, Palpitations, Dyspnea on exertion, Orthopnea, PND, Shortness of breath Respiratory: Denies: Cough, Hemoptysis, Shortness of Breath, Wheezing Gastrointestinal:: Denies: Abdominal pain, Nausea, Vomiting, Diarrhea, Constipation, Hematochezia Genitourinary: Denies: Dysuria, Hematuria, 15, Flank pain Musculoskeletal:: Denies: Back pain, Myalgia, Arthralgia Skin: Denies: Rash, Skin Changes, Wounds Neurological:: Denies: Headache, Dizziness, Visual changes, Tinnitus, Hearing loss Psychiatric: Denies: Anxiety, Depression, Homicidal Ideations, Suicidal Ideations Vital Signs Height 5 ft 7 in Weight: 55.021 kg Weight in Pounds 121.3 lbs BMI 20.7 Pulse Ox 94 - Physical Exam General: Alert, Oriented x3, No apparent distress, - - Port L IC area HEENT: Atraumatic, PERRLA, EOMI, Normocephalic, - - + hoarseness of voice. Oropharynx:: - - edentulous. Neck:: Supple, Trachea midline. Negative for: JVD, bilateral Cardiac:: Regular rate, Regular rhythm, Normal S1, Normal S2. Negative for: Murmur Lungs: Clear to auscultation, Excusion symmetrical. Negative for: Rhonchi, Wheezes Abdomen:: - - +PEG tube Extremities:: Negative for: Cyanosis, Edema Neurological: Neuro grossly intact Psychiatric:: Appropriate affect, Euthymic Lymphatics:: Negative for: Cervical lymphadenopathy, Supraclavicular lymphadenopathy, Axillary lymphadenopathy Laboratory Data: Laboratory Tests WBC 10.7 (4.4-11.0) K/mm3 Assessment and Plan Non small cell lung cancer, squamous cell type, T4 N2 M0-stage IIIB, Pleural fluid is negative for malignant cells, on Carboplatin and Taxol with Radiation. Compression of Left main bronchus and Pulmonary vessels. Pleural effusion, Pleurx catheter removed. History of Laryngeal CA stage TAWNY, S/P Chemoradiation therapy. Counts OK. Because of sepsis, will decrease Taxol dose to 80mg/m2. Plan is to proceed with C2D1 Carboplatin and Taxol today. Renew Percocet, use Miralax for constipation prophylaxis. Return to clinic 1 wk with CBC/CMP for C2D8 Taxol. Medications: Prescriptions This Visit Medication Instructions Recorded Ondansetron [Zofran Odt] 4 mg PO Q8H PRN PRN #30 tab 11/17/17 Oxycodone HCl/Acetaminophen 1 tablet PO Q6H PRN #90 tablet 11/17/17 [Percocet 5-325] Primary Care Provider: ROYCE Montero Referring Provider: - Problem List (1) History of laryngeal cancer Status: Chronic (2) Non-small cell carcinoma of left lung, stage 3 Status: Chronic (3) Chemotherapy management, encounter for Status: Chronic Code Visit Office Visits / Consults: 63880 OV L5 Est 12/19/17 1128 <Electronically signed by Nino Leigh MD> Date Nino Leigh MD Cosigner Signature: Date (if applicable) CC: CBC W/DIFF, AUTOMATED Collected: 12/18/2017 Status: C Source: GIANNA 9:15 AM [facility] REPOSITORY Order Comment: Reason for Laboratory Test . TYPE CODE TESTS RESULT OUT OF RANGE REFERENCE UNITS LAB L100.1000 4.4-11.0 K/mm3 Normal WBC 10.7 LAB L100.1200 4.6-6.2 M/mm3 Low RBC 3.12 LAB L100.1300 13.0-16.5 g/dl Low HGB 8.9 LAB L100.1400 40-54 % Low HCT 28.5 LAB L100.1500 80-94 fL Normal MCV 91.3 LAB L100.1600 27.0-32.0 pg Normal MCH 28.5 LAB L100.1700 32-36 g/gl Low MCHC 31.2 LAB L100.1810 11.6-14.6 % High RDW CV 22.1 LAB L100.1820 35.1-43.9 fl High RDW SD 57.8 LAB L100.1900 150-450 K/mm3 Normal PLT 299 LAB L100.2000 6.2-12.0 fl Normal MPV 9.6 LAB L100.3100 MANUAL DIFF Normal CELLS COUNTED 100 LAB L100.3200 47-70 % High 71 SEGS LAB L100.3300 0-5 % High 6 BAND LAB L100.3400 0-1 % High 3 META LAB L100.3500 0-0 High 1 MYELO LAB L100.3600 0-0 High 4 PROMYELO LAB L100.3800 19-41 % Low 6 LYMPH LAB L100.3900 0-10 % 7 Normal MONOCYTE LAB L100.4000 0-5 % 1 Normal EOS LAB L100.4100 0-1 % 1 Normal BASOPHIL LAB L100.5500 ADEQ Normal PLT EST ADEQUATE LAB L100.7000 NORM C AND C NORMAL N Normal RED CELL MORPH CHROM LAB L100.7300 1+ Normal ANISO LAB L100.2620 2.0-7.7 X10 3/uL High Absolute Neut 8.2 LAB L100.2720 0.83-4.51 X10 3/ul Low Absolute Lymph 0.64 LAB L100.9900 Normal PATH REV Reviewed Result Comment: Neutrophilic left shift. Normocytic anemia. Clinical correlation necessary. [place] M.D. 12/18/17 AMENDED REPORT 12/18/17 1357 PATH REV previously reported as: September ale Performed By: #### L100.0100 #### [facility] [address], [address] COMPREHENSIVE METABOLIC Collected: 12/18/2017 Status: F [facility] AM [facility] REPOSITORY Order Comment: Reason for Laboratory Test . TYPE CODE TESTS RESULT OUT OF RANGE REFERENCE UNITS LAB L501.0100 74-106 mg/dL Normal GLU 91 Result Comment: Please note revised GLUCOSE reference range effective 2017. LAB L501.1000 7-18 mg/dL High BUN 31 LAB L501.1100 0.70-1.30 mg/dL Normal CREAT,SERUM 1.12 Result Comment: The validity of the calculated GFR AND GFRAA in patients over 70 years has not been determined. Clinical correlation is essential. LAB L501.1110 >60 mL/min Normal EST GFR 71 Result Comment: Non- GFR Calc LAB L501.1115 >60 mL/min Normal EST GFR - AA 85 Result Comment: GFR Calc LAB L501.1255 ml/min Normal Estimated CRCL 53.22 LAB L501.1300 10-20 RATIO High BUN/CRE 27.7 LAB L501.1500 6.4-8. g/dL Normal 2 T PROT 6.8 LAB L501.1800 3.2-5. g/dL Low 0 ALB 2.9 LAB L501.1950 2.2-4. g/dL Normal 2 GLOB 3.9 LAB L501.2000 0.9-2. RATIO Low 4 A/G 0.7 LAB L501.2200 8.5-10 mg/dL Normal .1 CA 8.9 LAB L501.4100 15-37 U/L Normal AST 19 LAB L501.4305 45-117 U/L Normal ALK P 78 LAB L501.4405 16-61 U/L Normal ALT 39 LAB L501.4600 0.20-1 mg/dL Normal .00 T BILI 0.30 LAB L501.5300 136-14 mmol/L Low 5 NA 134 LAB L501.5600 3.5-5. mmol/L Normal 1 K 3.8 LAB L501.5900 98-107 mmol/L Low CL 97 LAB L501.6100 21.0-3 mmol/L Normal 2.0 CO2 31.0 LAB L501.6200 5-15 Normal GAP 6 Performed By: #### L500.4050 #### [facility] [address] [place], [place], [address] RADIATION ONCOLOGY Observed: 12/17/2017 Status: F Source: [place]CHER VISIT 4:38 PM [facility] REPOSITORY [facility] [address] [place] [address] OFFICE VISIT Date of Service: 12/17/17 1636 MR#: [id number] Acct: [id number] Name: TOMY MUNSON Rep #: [id number] : 1955 From: Vish Crespo Age/Sex: 62/M Location: [facility] Status: Signed Date of Service: 12/17/17 Diagnosis: Tomy Munson is a 61-year-old male previously treated for 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 Unfortunately due to treatment delays the lung cancer appears to have progressed and caused complete collapse of the left lung romeo and interventional pulmonology was unable to place stent. Plan was made to complete definitive chemoradiation therapy consisting of 6000 cGy in 30 fractions with concurrent Carbo/Taxol. He has a Pleurx catheter in the left lung remains completely deflated due to obstruction. Treatment Data: Treatment Site: Left lung and left hilar disease Current total dose/Total dose planned: 2400 cGy / 6000 cGy Fraction number: Chemotherapy: Weekly Carbo/Taxol Subjective: Patient reports doing well overall. Patient previously was draining Pleurx catheter daily and getting out about 200-400 cc per day. From 12/07-12/13 he was admitted to the hospital for neutropenia and diagnosed with MRSA infected chest tube which was removed. He reports increased fatigue but is improving since discharge. CT chest on 12/11 showed continued consolidation in the left lower hemithorax but improvement elsewhere. Radiation therapy was held from 12/08-12/12 due to the neutropenia. Nutrition: PEG tube dependent, reduced about a week ago due to dietary recommendation. Down 6 lbs this week. Only water by mouth Fatigue: moderate Pain: occasional CW pain, mild Resp: occasional SOB (mild), occasional cough, no hemoptysis. breathing improved some this week. Swallowing: just fluids since previous H AND N cancer chemoradiation. no pain with fluids. Height/Weight/BMI: Height: 5 ft 7 in Weight: 56.608 kg; 11/26/17: 124.8 lbs, 12/03/17: 127.5 lbs, 12/15/17: 125.9 lbs, Vital Signs BP: 118/73 T: 98.3 F P: 85 O2 sat: 96% RA Objective: Gen: NAD ENT: mouth dry, no thrush Resp: improved upper left lung sounds with good air movement. reduced air movement within the left lower lung romeo. CTA on the right without w/r/r CV: RRR Abd: PEG tube and Pleurx Catheter in place Skin: no erythema Laboratory Tests WBC Hgb Plt Count Absolute Neuts (auto) 1.4 L 0.4 L 0.3 L WBC 5.8 Hgb 7.4 L Plt Count 102 L Absolute Neuts (auto) 0.1 L 1.4 L 4.7 Assessment: Tolerating radiation therapy well overall. Left lung has re-expanded superiorly in the last couple days. GERD Improved breathing Neutropenia without fever: jennifer of 0.1, improved this week so resuming therapy. Plan: Due to lung re-expansion, completed verification simulation and current radiation delivery is adequate without re-plan. Discussed potential radiation toxicities and their timing Omeprazole through PEG tube Re-started RT today, neutropenia resolved, will resume chemotherapy this week. Continue treatment as planned, follow-up next week or sooner if needed. Thank you for allowing me to participate in the management and care of your patient. If I may answer any questions in the interim, please do not hesitate to contact me at any time. Vish Crespo DO, MS [employer]ide Tool Maker, Department of Radiation Oncology [facility] 12/17/17 1543 <Electronically signed by Vish Crespo DO> Date Vish Crespo DO Cosigner Signature: Date (if applicable) CC: PROGRESS Observed: 12/15/2017 Status: COMPLETED Source: [place] 9:30 PM [facility] REPOSITORY HNO ID: [id number] Author: Ron Padron Service: (none) Author Type: Physician Type: Progress Notes Filed: 12/15/2017 9:37 PM Note Text: OPERATIVE NOTATION FOR [facility] SURGICAL PROCEDURE. December 08, 2017 Tomy Munson 1955 [id number] male PROCEDURE: 93260 - removal Pleurex Catheter SURGEON: Boni Padron M.D. FACS SPECIAL INSPECTOR: None DEPT: WQ PROVIDER: [id number]=MrevwmuRon Padron MD POS: [id number] DIAGNOSIS: (C34.92) Malignant neoplasm of left lung, unspecified part of lung (HCC) (primary encounter diagnosis) (J91.0) Malignant pleural effusion ASA CLASS: 3 - Severe FINDINGS: COMPLICATIONS: None PMHx - PAST MEDICAL HISTORY Diagnosis Date - Anemia - Dysphagia - Hyponatremia - Malnutrition (HCC) - Squamous cell carcinoma head and neck - Xerostomia COMORBIDITIES - Smoking/Tobacco, Cancer Metastasis, Current Cancer Therapy, Chronic Pulmonary, COPD and Active Tx pulmonary Disease Post Op Occurrences - None Wound Classification - Contaminated Operative note dictated in the [facility] dictation system. Ron Padron MD RADIATION ONCOLOGY Observed: 12/15/2017 Status: F Source: [place] VISIT 2:41 PM [facility] REPOSITORY [facility] [address] [place] [id number] OFFICE VISIT Date of Service: 12/15/17 1243 MR#: [id number] Acct: [id number] Name: TOMY MUNSON Rep #: [id number] : 1955 From: Vish Crespo DO Age/Sex: 62/M Location: [facility] Status: Signed Date of Service: 12/15/17 Diagnosis: Tomy Munson is a 61-year-old male previously treated for 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 Unfortunately due to treatment delays the lung cancer appears to have progressed and caused complete collapse of the left lung romeo and interventional pulmonology was unable to place stent. Plan was made to complete definitive chemoradiation therapy consisting of 6000 cGy in 30 fractions with concurrent Carbo/Taxol. He has a Pleurx catheter in the left lung remains completely deflated due to obstruction. Treatment Data: Treatment Site: Left lung and left hilar disease Current total dose/Total dose planned: 2000 cGy / 6000 cGy Fraction number: Chemotherapy: Weekly Carbo/Taxol Subjective: Patient reports doing well overall. Patient previously was draining Pleurx catheter daily and getting out about 200-400 cc per day. From 12/07-12/13 he was admitted to the hospital for neutropenia and diagnosed with MRSA infected chest tube which was removed. He reports increased fatigue but is improving since discharge. CT chest on 12/11 showed continued consolidation in the left lower hemithorax but improvement elsewhere. Radiation therapy was held from 12/08-12/12 due to the neutropenia. Nutrition: PEG tube dependent, reduced about a week ago due to dietary recommendation. Down 6 lbs this week. Only water by mouth Fatigue: moderate Pain: occasional CW pain, mild Resp: occasional SOB (mild), occasional cough, no hemoptysis. breathing improved some this week. Swallowing: just fluids since previous H AND N cancer chemoradiation. no pain with fluids. Height/Weight/BMI: Height: 5 ft 7 in Weight: 56.608 kg; 11/26/17: 124.8 lbs, 12/03/17: 127.5 lbs, 12/15/17: 125.9 lbs, Vital Signs BP: 118/73 T: 98.3 F P: 85 O2 sat: 96% RA Objective: Gen: NAD ENT: mouth dry, no thrush Resp: improved upper left lung sounds with good air movement. reduced air movement within the left lower lung romeo. CTA on the right without w/r/r CV: RRR Abd: PEG tube and Pleurx Catheter in place Skin: no erythema Laboratory Tests WBC Hgb Plt Count Absolute Neuts (auto) 1.4 L 0.4 L 0.3 L WBC 5.8 Hgb 7.4 L Plt Count 102 L Absolute Neuts (auto) 0.1 L 1.4 L 4.7 Assessment: Tolerating radiation therapy well overall. Left lung has re-expanded superiorly in the last couple days. GERD Improved breathing Neutropenia without fever: jennifer of 0.1, improved this week so resuming therapy. Plan: Due to lung re-expansion, completed verification simulation and current radiation delivery is adequate without re-plan. Discussed potential radiation toxicities and their timing Omeprazole through PEG tube Re-started RT today, neutropenia resolved, will resume chemotherapy this week. Continue treatment as planned, follow-up next week or sooner if needed. Thank you for allowing me to participate in the management and care of your patient. If I may answer any questions in the interim, please do not hesitate to contact me at any time. Vish Crespo DO, MS Carbide Tool Maker, Department of Radiation Oncology [facility] 12/15/17 1441 <Electronically signed by Vish Crespo DO> Date Vish Crespo DO Cosigner Signature: Date (if applicable) CC: DISCHARGE SUMMARY Observed: 12/15/2017 Status: F Source: [place] 8:30 AM [facility] REPOSITORY [facility] Medical Records Department [address] [place] [address] Discharge Summary 12/15/1723 MR#: [id number] Acct: [id number] Name: TOMY MUNSON Rep #: [id number] : 1955 62 From: Antoine Hong DO PCP: ROYCE Montero Status: DIS IN Y Location: MS3 DI605-5 Discharge Date and Diagnosis Date of Admission: 12/07/17 Date of Discharge: 12/13/17 - Primary Discharge Diagnosis #1 infected left Pleurx catheter site- MRSA cellulitis- #2 pancytopenia-secondary to chemotherapy for non-small cell lung cancer #3 non-small cell lung cancer-squamous cell cancer #4 hyponatremia-corrected at this time #5 left hemithorax consolidation and effusion in the inferior half of the left hemithorax-possibly secondary to atelectasis and effects of radiation - Secondary Discharge Diagnosis Chronic Problems (Last Reviewed 11/27/17 @ 09:38 by Carlota Miguel) PEG (percutaneous endoscopic gastrostomy) status (Chronic) Tobacco dependence in remission (Chronic) Pulmonary nodule, left (Chronic) History of laryngeal cancer (Chronic) Non-small cell carcinoma of left lung, stage 3 (Chronic) Dysphagia (Chronic) Chronic anemia (Chronic) Pleural effusion (Chronic) Chemotherapy management, encounter for (Chronic) Hospital Course and Treatment Operations: None Procedures: - - Removal of Pleurx catheter Summary of Care Provided: The patient is a 62 year old M was seen in the emergency room at [facility] with complaints of discomfort over an area where a Pleurx catheter had been placed in the left chest wall. Patient had seen his general surgeon 2 days prior and was told the catheter was going to have to be removed soon. Evaluation included a CBC which showed a pancytopenia, chemistries were unremarkable, chest x-ray showed a decreased diffusion around the left lung and the presence of a left Pleurx catheter. Patient was given Zosyn in the emergency room, the case was discussed with general surgery and the hospitalist service admitted the patient to [place] [address] with his oncologist to consult. The Pleurx catheter was removed by general surgery, cultures of the area grew out methicillin resistant staph aureus, infectious diseases was consulted, patient was given Shad X during his hospitalization and his white blood cell count slowly increased. There were no complications during the hospitalization of this patient, on 12/13/17, patient was seen and examined and felt to be in stable condition for discharge home Discharge Activity: Return to Normal Activity Weight Bearing Status: Full weight bearing Home Medications: Medications to take at Discharge Albuterol IH (ProAir) [Proair Hfa] 2 puff INHALATION Q6H PRN 11/10/17 Dexamethasone [Decadron] 1 tablet PO DAILY@0800 11/10/17 Levothyroxine [Synthroid] 1 tablet PO DAILY 11/10/17 Ondansetron [Zofran Odt] 4 mg PO Q8H PRN PRN #30 tab 11/17/17 Oxycodone HCl/Acetaminophen [Percocet 5-325] 1 tablet PO Q6H PRN #90 tablet 11/17/17 Polyethylene Glycol 3350 [Miralax] 17 gm PO DAILY #30 packet 11/17/17 Magic Mouth Wash 15 ml PO Q6H PRN PRN #240 ml 11/27/17 Omeprazole [Prilosec] 20 mg PO DAILY #30 cap 12/03/17 Clonazepam [Klonopin] 0.5 mg PO TID 12/07/17 Bmx Liquid 15 ml PO Q6H PRN ml 12/13/17 Doxycycline [Vibramycin] 100 mg PO BID #20 cap 12/13/17 Following Prescrptions Were Given to Patient: Doxycycline [Vibramycin] 100 mg PO BID #20 cap Primary Care Physician: Alfred Sarmiento NP-C [Primary Care Provider] - Please follow up with your Primary Care Physician in: in 1- 2 weeks Please Follow Up With: Serina Hollingsworth MD When: next week Disposition: Home Minutes spent on discharge:: 32 Patient Condition:: Stable Medical Necessity - Tobacco Use Smoking Status: Former smoker - Quit 3 years ago. Had about a 37.5-pack-year smoking history. Meaningful Use Info Meaningful Use Diagnoses (Choose all that apply): None applicable Code Visit Inpatient E AND M: 49152 Disch Hosp 12/15/17 0830 <Electronically signed by Antoine Hong DO> Date Antoine Hong DO Cosigner Signature (if applicable): Date CC: ROYCE Sarmiento; Antoine Hong DO Signed DISCHARGE INSTRUCTION Observed: 12/13/2017 Status: F Source: [place] 10:15 AM [facility] REPOSITORY [facility] Medical Records Department [address] [place] [address] Instructions for Home/Discharge Instructions 12/13/17 1011 MR#: [id number] Acct: [id number] Name: TOMY MUNSON Rep #: [id number] : 1955 62 From: Antoine Hong DO PCP: ROYCE Montero Status: ADM IN - Discharge Diagnoses Current Active Problems: Current Active and Chronic Problems (Last Reviewed 11/27/17 @ 09:38 by Carlota Miguel) Pancytopenia (Acute) You will use the following diet at home:: No restrictions Your food should be the consistency of: Regular Your liquids should be the consistency of: Regular/Thin Discharge Activity: Return to Normal Activity Weight Bearing Status: Full weight bearing Allergies/Adverse Reactions: Allergies Iodinated Contrast- Oral and IV Dye [CT] Allergy (Mild, Verified 12/07/17 14:52) Rash Medications to take at Discharge Albuterol IH (ProAir) [Proair Hfa] 2 puff INHALATION Q6H PRN 11/10/17 Dexamethasone [Decadron] 1 tablet PO DAILY@0800 11/10/17 Levothyroxine [Synthroid] 1 tablet PO DAILY 11/10/17 Ondansetron [Zofran Odt] 4 mg PO Q8H PRN PRN #30 tab 11/17/17 Oxycodone HCl/Acetaminophen [Percocet 5-325] 1 tablet PO Q6H PRN #90 tablet 11/17/17 Polyethylene Glycol 3350 [Miralax] 17 gm PO DAILY #30 packet 11/17/17 Magic Mouth Wash 15 ml PO Q6H PRN PRN #240 ml 11/27/17 Omeprazole [Prilosec] 20 mg PO DAILY #30 cap 12/03/17 Clonazepam [Klonopin] 0.5 mg PO TID 12/07/17 Bmx Liquid 15 ml PO Q6H PRN ml 12/13/17 Doxycycline [Vibramycin] 100 mg PO BID #20 cap 12/13/17 The following prescriptions were given: Doxycycline [Vibramycin] 100 mg PO BID #20 cap Primary Care Physician: Alfred Sarmiento NP-C [Primary Care Provider] - Please follow up with your Primary Care Physician in: in 1- 2 weeks Test Results: Test results from this visit will be discussed in further detail at your follow-up appointment, if applicable. Please Follow Up With: Serina Hollingsworth MD When: next week 12/13/17 1015 <Electronically signed by Antoine Hong DO> Date Antoine Hong DO CC: ROYCE Laius, MD; Ron Padron MD; Marko Elliott MD CBC W/DIFF, AUTOMATED Collected: 12/13/2017 Status: C Source: [place] 5:08 AM [facility] REPOSITORY Order Comment: SPECIMEN OBTAINED FROM LINE DRAW TYPE CODE TESTS RESULT OUT OF RANGE REFERENCE UNITS LAB L100.1000 4.4-11.0 K/mm3 Normal WBC 5.8 LAB L100.1200 4.6-6.2 M/mm3 Low RBC 2.62 LAB L100.1300 13.0-16.5 g/dl Low HGB 7.4 LAB L100.1400 40-54 % Low HCT 23.4 LAB L100.1500 80-94 fL Normal MCV 89.3 LAB L100.1600 27.0-32.0 pg Normal MCH 28.2 LAB L100.1700 32-36 g/gl Low MCHC 31.6 LAB L100.1810 11.6-14.6 % High RDW CV 17.8 LAB L100.1820 35.1-43.9 fl High RDW SD 51.5 LAB L100.1900 150-450 K/mm3 Low PLT 102 LAB L100.2000 6.2-12.0 fl Normal MPV 10.1 LAB L100.3100 MANUAL DIFF Normal CELLS COUNTED 100 LAB L100.3200 47-70 % High 74 SEGS LAB L100.3300 0-5 % High 9 BAND LAB L100.3400 0-1 % 1 Normal META LAB L100.3800 19-41 % Low 13 LYMPH LAB L100.3900 0-10 % 3 Normal MONOCYTE LAB L100.5500 ADEQ Normal PLT EST ADEQUATE LAB L100.7000 NORM C AND C NORMAL Normal RED CELL MORPH NORM C+C LAB L100.2620 2.0-7.7 X10 3/uL Normal Absolute Neut 4.7 LAB L100.2720 0.83-4.51 X10 3/ul Low Absolute Lymph 0.74 LAB L100.9900 Normal PATH REV Reviewed Result Comment: Normocytic anemia. Thrombocytopenia. Clinical correlation necessary. Los Simental M.D. 12/15/17 AMENDED REPORT 12/15/17 1331 PATH REV previously reported as: May ale Performed By: #### L100.0100 #### [facility] [address] [place], [address] BASIC METABOLIC Collected: 12/12/2017 Status: F Source: [facility] PROFILE ([facility]) 5:20 AM [facility] REPOSITORY Order Comment: SPECIMEN OBTAINED FROM LINE DRAW TYPE CODE TESTS RESULT OUT OF RANGE REFERENCE UNITS LAB L501.0100 74-106 mg/dL Normal GLU 76 Result Comment: Please note revised GLUCOSE reference range effective 2017. LAB L501.1000 7-18 mg/dL High BUN 22 LAB L501.1100 0.70-1.30 mg/dL Normal CREAT,SERUM 0.74 Result Comment: The validity of the calculated GFR AND GFRAA in patients over 70 years has not been determined. Clinical correlation is essential. LAB L501.1110 >60 mL/min Normal EST GFR 113 Result Comment: Non- GFR Calc LAB L501.1115 >60 mL/min Normal EST GFR - AA 137 Result Comment: GFR Calc LAB L501.1255 ml/min Normal Estimated CRCL 83.59 LAB L501.1300 10-20 RATIO High BUN/CRE 29.6 LAB L501.2200 8.5-10 mg/dL Normal .1 CA 9.0 LAB L501.5300 136-14 mmol/L Normal 5 NA 136 LAB L501.5600 3.5-5. mmol/L Normal 1 K 3.8 LAB L501.5900 98-107 mmol/L Low CL 95 LAB L501.6100 21.0-3 mmol/L High 2.0 CO2 33.0 LAB L501.6200 5-15 Normal GAP 8 Performed By: #### L500.2500 #### [facility] [address] [facility] [place], [address] CBC W/DIFF, AUTOMATED Collected: 12/12/2017 Status: C Source: [place] 5:20 AM [facility] REPOSITORY Order Comment: SPECIMEN OBTAINED FROM LINE DRAW TYPE CODE TESTS RESULT OUT OF RANGE REFERENCE UNITS LAB L100.1000 4.4-11.0 K/mm3 Low WBC 2.0 LAB L100.1200 4.6-6.2 M/mm3 Low RBC 2.69 LAB L100.1300 13.0-16.5 g/dl Low HGB 7.6 LAB L100.1400 40-54 % Low HCT 23.8 LAB L100.1500 80-94 fL Normal MCV 88.5 LAB L100.1600 27.0-32.0 pg Normal MCH 28.3 LAB L100.1700 32-36 g/gl Low MCHC 31.9 LAB L100.1810 11.6-14.6 % High RDW CV 17.9 LAB L100.1820 35.1-43.9 fl High RDW SD 52.2 LAB L100.1900 150-450 K/mm3 Low PLT 85 LAB L100.2000 6.2-12.0 fl Normal MPV 10.2 LAB L100.2620 2.0-7.7 X10 3/uL Low Absolute Neut 1.4 Result Comment: AMENDED REPORT 12/12/17626 Absolute Neut previously reported as: 1.2 L X10^3/uL LAB L100.2720 0.83-4.51 X10 3/ul Low Absolute Lymph 0.15 Result Comment: AMENDED REPORT 12/12/17626 Absolute Lymph previously reported as: 0.25 L X10^3/ul LAB L100.3100 MANUAL DIFF 50 Normal CELLS COUNTED LAB L100.3200 47-70 % 54 Normal SEGS LAB L100.3300 0-5 % 16 High BAND LAB L100.3400 0-1 % 8 High META LAB L100.3800 19-41 % Low 8 LYMPH LAB L100.3900 0-10 % 14 High MONOCYTE LAB L100.4400 0-5 % 2 Normal NRBC,MANUAL CT LAB L100.4800 2+ Normal TOXIC GRAN LAB L100.5500 ADEQ Normal PLT EST SLT DEC LAB L100.7000 NORM C AND NORMAL C Normal RED CELL MORPH NORM C+C LAB L100.9900 Normal PATH REV Reviewed Result Comment: Pancytopenia. Clinical correlation necessary. Los Simental M.D. 12/12/17 AMENDED REPORT 12/12/17 0936 PATH REV previously reported as: Summer aguilera Performed By: #### L100.0100 #### [facility] [place], [address] Observed: 12/11/2017 Status: F Source: GIANNA CULTURE, BLOOD (WB) 12:05 PM [facility] REPOSITORY REGINALDO NADEEM ONE VENOUS. PT IS NURSE DRAW OTHER SET DRAW THROUGH LINE BY RN. BC No growth in 5 days. Performed By: #### M200.1000 #### [facility] [address] [place], [address] CHEST WITH CONTRAST Observed: 12/11/2017 Status: F Source: GIANNA 10:50 AM [facility] REPOSITORY [facility] Imaging Services [address] [place] [address] Chest WITH Contrast MR#: [id number] Acct: [id number] Name: TOMY MUNSON Rep #: [id number] : 1955 M 62 From: Charles Miramontes MD PCP: ROYCE Montero Status: ADM IN Study: Chest WITH Contrast Date of Exam: 12/11/17 Exam# [id number] Ordering Dr: Marko Elliott MD STUDY: CT CHEST WITH CONTRAST REASON FOR EXAM: Male, 62 years old. Fever, recent chest tube removal. RADIATION DOSAGE (If Supplied By Facility): CTDIvol = ( 8.11 ) mGy, DLP = ( 238.00 ) mGycm TECHNIQUE: Transaxial imaging was performed following intravenous administration of 100 ml of Isovue 300 contrast material. Individualized dose optimization techniques were used for this CT. COMPARISON: 11/12/2017 FINDINGS: Previous noted left-sided chest tube has been removed. The right lung is normally expanded without a superimposed process. There is no organized infiltrate, or suspicious noncalcified mass or nodule When compared to the previous study, there is been significant improvement in the left hemithorax but there remains a significant consolidation and effusion involving the inferior aspect of the left lower lobe. The upper half of the left lung shows some nonspecific pleural thickening and atelectatic changes. Normal heart and pericardium. Normal mediastinum. Normal hilar regions. Normal enhanced pulmonary arteries. Normal aorta arch and descending thoracic aorta. There are multi-level degenerative changes of the thoracic spine. Limited cuts through the upper abdomen suggests a PEG tube is placed CT/Chest WITH Contrast IMPRESSION: There is a combination of consolidation and effusion in the inferior half of the left hemithorax. This represents a significant improvement when compared to the previous study but follow-up is recommended to assure complete resolution. Right lung is clear and well expanded No suspicious axillary or mediastinal adenopathy Degenerative bony changes Electronically Signed: Nathaniel Miramontes MD at 13:36 EDT , Service support , CC: [facility] Alfred Sarmiento; Marko Elliott MD [employer]: Signed VANCOMYCIN, TROUGH Collected: 12/11/2017 Status: F Source: GIANNA LEVEL 5:36 AM [facility] REPOSITORY Order Comment: Comments: PLEASE DRAW 30MIN PRIOR TO DOSE ON 12/11 @0600 Time Medication is to be Given? 0600 TYPE CODE TESTS RESULT OUT OF REFERENCE UNITS RANGE LAB L501.8820 5.0-15.0 ug/mL High VANCO, TROUGH 15.4 Result Comment: VANCOMYCIN STANDARED DRUG THERAPY TROUGH LEVEL: 5.0 - 15.0 mg/L VANCOMYCIN HIGH INTENSITY THERAPY TROUGH LEVEL: 15.0 - 20.0 mg/L High Intensity therapy recommended for serious life threatening infections include: - Meningitis -Endocarditis -Pneumonia (Ventilator/Healtcare Associated) -Sepsis PLEASE CONTACT PHARMACY SERVICES (#[id number]) FOR INTERPRETATION OF RESULTS. Performed By: #### L501.8820 #### [facility] [address] [facility] [place], [address] CONSULTATION Observed: 12/10/2017 Status: F Source: [place] 1:19 PM [facility] REPOSITORY [facility] Medical Records Department [address] [facility] [place] [address] Consultation 12/10/17 1313 MR#: [id number] Acct: [id number] Name: MARNITOMY Tai Rep #: [id number] : 1955 62 From: Marko Elliott MD PCP: ROYCE Montero Status: ADM IN Y Location: MS3 [id number] Problem List (1) Cellulitis Status: Acute Reason for Consult: mrsa Consulted by: Dr. Hong History of Present Illness: The patient is a 62 year old M with NSCLC with malignant effusion, had L pleurx placed about [address] Padron. For past 2 weeks noticed some redness and pain around drain site. No drainage around the tube. No fever or chills. Some SOB. Output from tube was clear. Redness worsened, came to ED, cx (+) for MRSA and drain removed 12/08. Feeling better, abx narrowed to vanc. Full ROS performed and neg except as noted above. No issues with port. - Medical History Past Medical History (Chronic Problems): Chronic Problems (Last Reviewed 11/27/17 @ 09:38 by Carlota Miguel) PEG (percutaneous endoscopic gastrostomy) status (Chronic) Tobacco dependence in remission (Chronic) Pulmonary nodule, left (Chronic) History of laryngeal cancer (Chronic) Non-small cell carcinoma of left lung, stage 3 (Chronic) Dysphagia (Chronic) Chronic anemia (Chronic) Pleural effusion (Chronic) Chemotherapy management, encounter for (Chronic) Allergies/Adverse Reactions: Allergies Iodinated Contrast- Oral and IV Dye [CT] Allergy (Mild, Verified 12/07/17 14:52) Rash Home Medications: Ambulatory Orders Medication Instructions Recorded - Social History SMOKING STATUS:: Former smoker Vital Signs Temp Pulse Resp BP Pulse Ox 99.1 F 82 16 138/72 H 95 12/10/17 09:01 12/10/17 09:01 12/10/17 09:01 12/10/17 09:01 12/10/17 09:01 Oxygen Delivery Method Room Air Weight: 57.1 kg Body Mass Index (BMI) 19.7 Microbiology Past 72 Hours 12/08/17 09:26 Gram Stain - Final Incision/Surgical Site Wound Culture - Final Laboratory Tests Past 24 Hrs WBC 0.4 L* RBC 2.63 L Hgb 7.3 L - Other Studies Radiology: [] reviewed Other Studies: [] Route of nutrition/ use of supplements: [] Nutritional Intake: [] IV Site: [] Corcoran Catheter: [] - Physical Exam General: Alert, Oriented x3, Cooperative, No apparent distress HEENT: Atraumatic, PERRLA, EOMI Neck: Supple, No Nodes Lungs: Diminished Cardiovascular: Regular rate, Regular Rhythm Abdomen: Bowel Sounds Present, Soft, Non Tender, Non-Distended, - - PEG in place Extremities: No edema Skin: - - L chest former chest tube site with mild redness, no drainage IV Site: Central Line, without redness Musculoskeletal: No Tenderness to Palpation of Joints or Extremities Neurological: Cranial nerves II-XII grossly intact - Assessment/Plan Antibiotics: [] Assessment/Plan: [] Active and Suspected Problems (Last Reviewed 11/27/17 @ 09:38 by Carlota Miguel) Pancytopenia (Acute) MRSA infected chest tube - removed 12/08/[address] Padron. Cont iv vanc. Plan will be for him to go home on po abx. pancytopenia with NSCLC Will follow, thank you. 12/10/17 1319 <Electronically signed by Marko Elliott MD> Date Marko Elliott MD Cosigner Signature (if applicable): Date CC: CAD ENGINEER-C Alfred Sarmiento; Serina Hollingsworth MD; Ron Padron MD; Marko Elliott MD Signed CBC W/DIFF, AUTOMATED Collected: 12/10/2017 Status: C Source: [place] 6:20 AM [facility] REPOSITORY TYPE CODE TESTS RESULT OUT OF RANGE REFERENCE UNITS LAB L100.1000 4.4-11.0 K/mm3 Low alert WBC 0.4 Result Comment: CRITICAL VALUE VERIFIED. CALLED TO MARIO BALES MS3 12/10/17 0655 Yusra Judge. RESULTS READ BACK BY SAME . LAB L100.1200 4.6-6.2 M/mm3 Low RBC 2.63 LAB L100.1300 13.0-16.5 g/dl Low HGB 7.3 LAB L100.1400 40-54 % Low HCT 23.1 LAB L100.1500 80-94 fL Normal MCV 87.8 LAB L100.1600 27.0-32.0 pg Normal MCH 27.8 LAB L100.1700 32-36 g/gl Low MCHC 31.6 LAB L100.1810 11.6-14.6 % High RDW 17.9 CV LAB L100.1820 35.1-43.9 fl High RDW 52.5 SD LAB L100.1900 150-450 K/mm3 Low PLT 70 LAB L100.2000 6.2-12.0 fl Normal MPV 10.1 LAB L100.2100 47-70 % Low NEUT% 24.9 LAB L100.2200 19-41 % Normal LY% 27.8 LAB L100.2300 0-10 % High MONO% 16.7 LAB L100.2400 0-5 % Normal EO% 0.0 LAB L100.2500 0-1 % High BASO% 2.8 LAB L100.2550 0.0-0.9 % High IM GRAN % 27.800 Result Comment: IG% - Immature Granulocytes (promyelocytes, myelocytes and metamyelocytes) > 1% indicates that a LEFT SHIFT is Present. LAB L100.2620 2.0-7.7 X10 3/uL Low Absolute Neut 0.1 LAB L100.2720 0.83-4.51 X10 3/ul Low Absolute Lymph 0.10 LAB L100.4500 Normal SMEAR COMMENT SCANNED Result Comment: LEUKOCYTOPENIA NOTED LAB L100.8300 Normal 2+ [place] LAB L100.9900 Normal PATH REV Reviewed Result Comment: Pancytopenia. Clinical correlation necessary. Los Simental M.D. 12/10/17 AMENDED REPORT 12/10/17 1532 PATH REV previously reported as: September ale Performed By: #### L100.0100 #### [facility] [address] [place], [address] BASIC METABOLIC Collected: 12/10/2017 Status: F Source: GIANNA PROFILE ([facility]) 6:00 AM [facility] REPOSITORY TYPE CODE TESTS RESULT OUT OF RANGE REFERENCE UNITS LAB L501.0100 74-106 mg/dL Low GLU 70 Result Comment: Please note revised GLUCOSE reference range effective 2017. LAB L501.1000 7-18 mg/dL High BUN 24 LAB L501.1100 0.70-1.30 mg/dL Normal CREAT,SERUM 0.78 Result Comment: The validity of the calculated GFR AND GFRAA in patients over 70 years has not been determined. Clinical correlation is essential. LAB L501.1110 >60 mL/min Normal EST GFR 108 Result Comment: Non- GFR Calc LAB L501.1115 >60 mL/min Normal EST GFR - AA 131 Result Comment: GFR Calc LAB L501.1255 ml/min Normal Estimated CRCL 79.31 LAB L501.1300 10-20 RATIO High BUN/CRE 30.9 LAB L501.2200 8.5-10 mg/dL Low .1 CA 8.4 LAB L501.5300 136-14 mmol/L Normal 5 NA 136 LAB L501.5600 3.5-5. mmol/L Normal 1 K 3.8 LAB L501.5900 98-107 mmol/L Normal CL 98 LAB L501.6100 21.0-3 mmol/L Normal 2.0 CO2 31.0 LAB L501.6200 5-15 Normal GAP 7 Performed By: #### L500.2500 #### [facility] [address] [place], [address] OPERATIVE REPORT Observed: 12/09/2017 Status: F Source: [place] 1:28 PM [facility] REPOSITORY [facility] Medical Records Department [address] [place] [address] Operative Report 12/08/17 0928 MR#: [id number] Acct: [id number] Name: TOMY MUNSON Rep #: [id number] : 1955 62 From: Ron Padron MD PCP: ROYCE Montero Status: ADM IN Location: [place] [id number] Report of Operation Date of Procedure: 12/08/17 Pre-Operative Diagnosis: infected left tunneled pleural catheter Post-Operative Diagnosis: infected left tunneled pleural catheter Surgery/Procedure Performed:: removal of tunneled catheter steel fixer: None Type of Anesthesia:: MAC Anesthesiologist: Alejandro Banuelos Specimen's removed: catheter - tract culture, catheter tip for aerobic and anaerobic Description of Procedure: the patient was brought to the operative suite. Sign in was performed and the patient, site, position. The patient is currently on antibiotics. Following IV sedation, the chest tubes/Pleurx catheter insertion site was prepped and draped in the usual fashion with Betadine paint. Local anesthetic was injected in the skin. The suture securing the catheter was cut and the catheter was removed with gentle traction. There was a scant amount of pus that came out with the catheter. The skin tract was then culture swab and sent for culture. The tip of the catheter was cut, placed in a sterile container and sent for culture. a dressing was applied. The patient was taken to recovery in stable condition. 12/09/17 1328 <Electronically signed by Ron Padron MD> Date Ron Padron MD CC: ROYCE Sarmiento; Serina Hollingsworth MD; Ron Padron MD Signed CONSULTATION Observed: 12/09/2017 Status: F Source: [place] 1:03 PM [facility] REPOSITORY [facility] Medical Records Department [address] [place] [address] Consultation 12/07/17 1801 MR#: [id number] Acct: [id number] Name: TOMY MUNSON Rep #: [id number] : 1955 62 From: Ron Padron MD PCP: ROYCE Montero Status: ADM IN Location: [place] [id number] Reason for Consult Date of Consultation: 12/07/17 History of Present Illness: The patient is a 62 year old M who presents with leukopenia/neutropenia and pain and erythema at his chest insertion site of his pleurex catheter Tomy is a patient I am following for malignant left pleural effusion. I performed a left tunnel Pleurx catheter placement on November 11, 2017. The patient had significant locally advanced disease and after withdrawal of fluid from the left pleural space. The lung failed to expand significantly and actually had a degree of shifting in the mediastinum towards the side of the disease. The patient has since been getting his chemotherapy and also had bronchoscopy performed with attempt at opening some of the proximal airways. Overall, the patient notes improved shortness of breath and functional status. He had a CT scan within the last 2 weeks which demonstrated significant reexpansion and aeration of the upper left lobe. There is still a consolidated not expanded lower lobe with some pleural fluid still present around it. The patient currently notes that he gets a variable amount of fluid from the Pleurx catheter when he is draining it every few days. his appetite has been good. he denies fever, chills or abdominal pain. he does note some no significant incisional discomfort. I had seen the patient in the office on December 04 and he was doing well without erythema. He now presents to the emergency department with these complaints. Aside from his left-sided lung cancer ,he also has a previous history of floor of mouth cancer. He has a PEG tube where he gets most of his nutrition Past Medical History Past Medical History (Chronic Problems): Chronic Problems (Last Reviewed 11/27/17 @ 09:38 by Carlota Miguel) PEG (percutaneous endoscopic gastrostomy) status (Chronic) Tobacco dependence in remission (Chronic) Pulmonary nodule, left (Chronic) History of laryngeal cancer (Chronic) Dysphagia (Chronic) Chronic anemia (Chronic) Medical History: Medical History (Last Reviewed 11/27/17 @ 09:38 by Carlota Miguel) Anemia D64.9 Chicken pox B01.9 Dysphagia R13.10 Hypernatremia E87.0 Hyponatremia E87.1 Hypothyroidism E03.9 LEFT WRIST SURGERY Laryngeal cancer C32.9 Lymphadenitis I88.9 Measles B05.9 Mumps B26.9 Status post insertion of percutaneous endoscopic gastrostomy (PEG) tube Z93.1 Allergies Iodinated Contrast- Oral and IV Dye [CT] Allergy (Mild, Verified 12/07/17 14:52) Rash Home Medications: Ambulatory Orders Medication Instructions Recorded Surgical History: Surgical History (Last Reviewed 11/27/17 @ 09:38 by Carlota Miguel) History of hernia repair Z98.890, Z87.19 History of thoracentesis Z98.890 Surgical History: herniorrhaphy, - - PEG tube placement. Psychiatric History: Anxiety Lives: With Family Smoking Status: Former smoker - Quit 3 years ago. Had about a 37.5-pack-year smoking history. Alcohol: None - Quit 3 years ago - *Family History Paternal Family History: Family History (Last Reviewed 11/27/17 @ 09:38 by Carlota Miguel) Father Heart disease History Items: Heart Disease - Maternal Family History: Family History (Last Reviewed 11/27/17 @ 09:38 by Carlota Miguel) Father Heart disease History Items: No pertinent history Review of Systems Constitutional: Denies: Chills, Fever, Weight Change HEENT: Denies: Head Aches, Sinus Congestion, Sinus Drainage Cardiovascular: Denies: Chest Pain, Palpitations Respiratory: Denies: Cough, Shortness of breath at rest, Sputum production Gastrointestinal: Denies: Abdominal Pain, Nausea, Vomiting Genitourinary: Denies: Dysuria Musculoskeletal: Denies: Joint Pain, Joint Tenderness Skin: Denies: Rash, Wounds Neurological: Denies: Numbness, Tingling, Focal weakness Psychiatric: Denies: Anxiety, Depression, Homicidal Ideations, Suicidal Ideations Hematologic/ Lymphatic: Denies: Easy Bruising, Easy Bleeding Patient Problems: Active and Suspected Problems (Last Reviewed 11/27/17 @ 09:38 by Carlota Miguel) Pancytopenia (Acute) - Physical Exam General: Alert, Oriented x3 Lungs: Diminished - breath sounds at the left base and dullness to percussion at the left base, but overall vastly improved over the past month, - - insertion site at the left lateral chest or the Pleurx catheter inserts into the chest demonstrates some erythema without fluctuance. There is no significant erythema at the site where the tube exits the skin and no expressible purulence. At the site is tender Cardiovascular: Regular rate, Regular Rhythm Abdomen: Bowel Sounds Present, Soft, Non Tender Vital Signs Temp Pulse Resp BP Pulse Ox 99.3 F H 86 18 132/70 H 94 12/07/17 14:48 12/07/17 17:09 12/07/17 17:09 12/07/17 17:09 12/07/17 17:09 Oxygen Delivery Method Room Air Weight: 57.1 kg Body Mass Index (BMI) 19.7 Laboratory Tests Past 24 Hrs WBC 0.5 L* RBC 2.50 L Hgb 7.1 L Hct 22.1 L Assessment/Plan All Active Problems (Last Reviewed 11/27/17 @ 09:38 by Carlota Miguel) Non-small cell carcinoma of left lung, stage 3 (Acute) Atrial fibrillation and flutter (Acute) Pleural effusion (Acute) Chemotherapy management, encounter for (Acute) Cellulitis (Acute) Pancytopenia (Acute) cellulitis at chest insertion site, neutropenia, lung cancer. The patient will be admitted and started on IV antibiotics. Since there is no significant erythema at the catheter skin exit site, I am not sure if this is erythema from infection or fluid tracing out from the chest. Overall, the patient is responding to his treatment and the upper lung romeo are much better expanded, but there is still collapse of the lower lobe with fluid present in the pleural space. If the site fails to improve, I will plan for removal of the catheter. 12/09/17 1303 <Electronically signed by Ron Padron MD> Date Ron Padron MD Cosigner Signature (if applicable): Date CC: CAD ENGINEER-C Alfred Sarmiento; Serina Hollingsworth MD; Ron Padron MD Signed CBC W/DIFF, AUTOMATED Collected: 12/09/2017 Status: C Source: [place]IANNA 5:50 AM [facility] REPOSITORY Order Comment: SPECIMEN OBTAINED FROM LINE DRAW CRITICAL VALUE VERIFIED. CALLED TO ROXANNERN MS3 12/09/17 0708 Yusra Judge. RESULTS READ BACK BY SAME . TYPE CODE TESTS RESULT OUT OF RANGE REFERENCE UNITS LAB L100.1000 4.4-11.0 K/mm3 Low alert WBC 0.5 LAB L100.1200 4.6-6.2 M/mm3 Low RBC 2.61 LAB L100.1300 13.0-16.5 g/dl Low HGB 7.3 LAB L100.1400 40-54 % Low HCT 22.8 LAB L100.1500 80-94 fL Normal MCV 87.4 LAB L100.1600 27.0-32.0 pg Normal MCH 28.0 LAB L100.1700 32-36 g/gl Normal MCHC 32.0 LAB L100.1810 11.6-14.6 % High RDW CV 18.4 LAB L100.1820 35.1-43.9 fl High RDW SD 53.6 LAB L100.1900 150-450 K/mm3 Low PLT 76 LAB L100.2000 6.2-12.0 fl Normal MPV 8.6 LAB L100.2100 47-70 % High NEUT% 75.6 LAB L100.2200 19-41 % Low LY% 13.3 LAB L100.2300 0-10 % Normal MONO% 4.4 LAB L100.2400 0-5 % Normal EO% 0.0 LAB L100.2500 0-1 % Normal BASO% 0.0 LAB L100.2550 0.0-0.9 % High IM GRAN % 6.700 Result Comment: IG% - Immature Granulocytes (promyelocytes, myelocytes and metamyelocytes) > 1% indicates that a LEFT SHIFT is Present. LAB L100.2620 2.0-7.7 X10 3/uL Low Absolute Neut 0.3 LAB L100.2720 0.83-4.51 X10 3/ul Low Absolute Lymph 0.06 LAB L100.4500 Normal SMEAR COMMENT SCANNED Result Comment: LEUKOCYTOPENIA NOTED LAB L100.5500 ADEQ Normal SLT PLT DEC EST LAB L100.9900 Normal PATH Reviewed REV Result Comment: Pancytopenia. Clinical correlation necessary. Los Simental M.D. 12/09/17 AMENDED REPORT 12/09/17 1630 PATH REV previously reported as: September ale Performed By: #### L100.0100 #### [facility] [address] [place], [address] CONSULTATION Observed: 12/08/2017 Status: F Source: [place] 4:26 PM [facility] REPOSITORY [facility] Medical Records Department [address] [address] Consultation 12/08/17 1610 MR#: [id number] Acct: [id number] Name: TOMY MUNSON Rep #: [id number] : 1955 62 From: Serina Hollingsworth MD PCP: ROYCE Montero Status: ADM IN Y Location: MS3 [id number] - Problem List (1) Pancytopenia Status: Acute (2) Non-small cell carcinoma of left lung, stage 3 Status: Acute (3) Pleural effusion Status: Acute Consult Referring Physician: Hospitalist service Consult Results: Lung cancer, pleural effusion, pancytopenia Subjective Date of Service:: 12/08/17 Chief Complaint: infected chest tube History of Present Illness: Mr. Tomy Munson is a 62 y.o.man with stage IIIb non-small cell lung cancer recently diagnosed when a CT scan of chest on 09/16/2017 showed increasing Left lower lobe mass and new Left hilar mass. EBUS + biopsy, on 09/26/2017 and showed squamous cell cancer. MRI brain done on 10/14/2017 was negative for brain metastases. PET/CT on 10/16/2017 shows new hypermetabolic activity in left hemithorax with activity in precarinal area mediastinum, left perihilar area and pleural effusion. Thoracentesis showed no malignant cells. Pleurx cath was placed. He was staged as NSCLC stage IIIB. He started chemotherapy with weekly carboplatin and Taxol on 11/20/2017 with concomitant radiation therapy on 11/24/[address] Leigh and aSra. His last chemo was December 04, 2017. He was hospitalized on December 07 with increasing chest pain at the site of the Pleurx catheter associated with swelling and erythema. He was found to be profoundly pancytopenic with an absolute neutrophil count of 400. He was started on intravenous antibiotics, the Pleurx cath was removed December 08. Past Medical History: Chronic Problems (Last Reviewed 11/27/17 @ 09:38 by Carlota Miguel) PEG (percutaneous endoscopic gastrostomy) status (Chronic) Tobacco dependence in remission (Chronic) Pulmonary nodule, left (Chronic) History of laryngeal cancer (Chronic) Dysphagia (Chronic) Chronic anemia (Chronic) Past Medical/Surgical History: Past Medical History - Most Recent Inpatient Visit Past Medical History Start: 12/07/17 17:32 Text: Status: Complete Freq: ONCE Protocol: Document 12/07/17 17:32 TDW (Rec: 12/07/17 17:41 TDW [id number]) BMI Required to complete PMH What is Patient's BMI 19.7 Past Medical History Unable History Recalled No Query Text:Pt Unable/Family Not Present Neurologic Medical History Hx Stroke/TIA No Hx Dementia/Alzheimer's No Hx Parkinson's Disease No Hx Seizures No Hx Multiple Sclerosis No Hx Migraines No Cardiac Medical History VTE Present on Admission No Hx of Deep Vein Thrombosis/VTE/PE No Hx Hypertension No Hx Chest Pain/Angina Yes: from chest tube Hx Heart Attack No Hx Cardiac Surgery/Stents/Etc. No Hx Heart Failure No Hx Pacemaker/AICD No Hx Irregular Heartbeat and/or Afib Yes Hx Anticoagulant Therapy No Query Text:(Coumadin, Aspirin, Plavix, Xarelto, etc.) Hx Pain in Legs when Walking/Leg Cramps No Respiratory Medical History Hx COPD No Hx Emphysema No Hx Smoking Yes: SMOKED 25 YRS /PPD/QUIT SMOKING 2.5 YRS AGO Smoking Status Former smoker Hx Smoking Cessation Counseling Yes Hx Smoking Exposure Yes Hx Tobacco Use in last 12 months No Hx of Pipe Smoking No Hx Sleep Apnea No: . CPAP No BIPAP No Do you snore loudly (louder than talking No or can be heard through closed doors)? Do you often feel tired/ fatigued/ No sleepy during daytime? Has anyone observed you stop breathing No during sleep? STOP Results Negative GI Medical History Hx Ulcer No Hx Hepatitis No Hx Cirrhosis No Hx GI Bleed No: ESOPHAGUS STRETCHED Hx Unplanned Weight Loss Yes Genitourinary Medical History Indwelling Catheter in Place on Arrival/ No Admission Hx Renal Disease No Hx Dialysis No Musculoskeletal History Hx Arthritis Yes Hx Rheumatoid Arthritis No Endocrine Medical History Hx Diabetes No Hx Thyroid Disease Yes: ON MED Hematologic Medical History Hx of Blood Transfusion Yes Hx of Transfusion in last 3 Months No Ever experience any problems with No transfusion(s)? Hx of Preganancy in last 3 Months N/A Nurse Filling Out Transfusion AND TWOLF Questions: Date: 12/07/17 Time: 17:39 Psycho/Social Medical History Hx Depression No Hx Anxiety No Hx Behavior Disorder No Hx Alcohol Use Yes: 12 BEERS /DAY QUIT 2 YRS AGO Hx Substance Use No Other Medical History Hx Blood Disorders No Hx Anemia Yes Hx Cancer Yes: throat/neck cancer/ RADIATION [place] Hx Drug Resistant Organism No Wound/Pressure Injury Present on Arrival Yes /Admission Query Text:If yes, chart assessment in Shift/Clinical Findings Central Line/PICC/VAD Present on Arrival Yes /Admission Antibiotics within last 7 days? No Risk for Readmission Number of Risk Factors 7 At Risk for Readmission Patient is At Risk For Readmission Patient is eligible for Call Back Y Past Medical History (Last Reviewed 11/27/17 @ 09:38 by Carlota Miguel) Anemia (Acute) Chicken pox (Acute) Dysphagia (Acute) Hypernatremia (Acute) Hyponatremia (Acute) Hypothyroidism (Acute) LEFT WRIST SURGERY (Acute) Laryngeal cancer (Acute) Lymphadenitis (Acute) Measles (Acute) Mumps (Acute) Status post insertion of percutaneous endoscopic gastrostomy (PEG) tube (Acute) Past Surgical History (Last Reviewed 11/27/17 @ 09:38 by Carlota Miguel) History of hernia repair (Acute) History of thoracentesis (Acute) Paternal Family History: Family History (Last Reviewed 11/27/17 @ 09:38 by Carlota Miguel) Father Heart disease Family History: Heart Disease - Maternal Family History: Family History (Last Reviewed 11/27/17 @ 09:38 by Carlota Miguel) Father Heart disease Family History: No pertinent history - Social History Lives: With Family Smoking Status: Former smoker - Quit 3 years ago. Had about a 37.5-pack-year smoking history. Alcohol: None - Quit 3 years ago Allergies/Adverse Reactions: Allergy/AdvReac Type Severity Reaction Status Date / Time Iodinated Contrast- Oral and Allergy Mild Rash Verified 12/07/17 14:52 IV Dye [CT] Review of Systems Constitutional:: Reports: Weakness, Fatigue, Weight loss - Each. Denies: Fever, Sweats, Appetite change, Chills Cardiovascular:: Reports: Chest pain - Site of the Pleurx cath, Dyspnea on exertion. Denies: Palpitations, Orthopnea, PND, Shortness of breath Respiratory: Reports: Cough, Shortness of Breath, Shortness of breath upon exertion. Denies: Hemoptysis, Wheezing Gastrointestinal:: Denies: Abdominal pain, Nausea, Vomiting, Diarrhea, Constipation, Hematochezia Genitourinary: Denies: Dysuria, Hematuria, 15, Flank pain Musculoskeletal:: Denies: Back pain, Myalgia, Arthralgia Skin: Denies: Rash, Skin Changes, Wounds Neurological:: Denies: Headache, Dizziness, Visual changes, Tinnitus, Hearing loss Psychiatric: Denies: Anxiety, Depression, Homicidal Ideations, Suicidal Ideations Vital Signs Height 5 ft 7 in Weight: 57.1 kg Weight in Pounds 125.9 lbs Pulse Ox 92 - Physical Exam General: Alert, Oriented x3, No apparent distress, - - Frail, thin, hoarse HEENT: Atraumatic, PERRLA, EOMI, Normocephalic Oropharynx:: Dry mucosa Neck:: Supple, Trachea midline, - - Port okay. Negative for: JVD, bilateral Cardiac:: Regular rate, Regular rhythm, Normal S1, Normal S2. Negative for: Murmur Lungs: Clear to auscultation, Diminished, Excusion symmetrical. Negative for: Rhonchi, Wheezes Abdomen:: Soft, Non-tender, Non-distended, - - Feeding tube. Negative for: Hepatosplenomegaly Extremities:: Negative for: Cyanosis, Edema Neurological: Neuro grossly intact Skin:: Negative for: Lesions, Rash, Petechiae, Ecchymosis Psychiatric:: Appropriate affect, Euthymic Lymphatics:: Negative for: Cervical lymphadenopathy, Supraclavicular lymphadenopathy Laboratory Data: Microbiology 12/08/17 09:26 Gram Stain - Final Incision/Surgical Site Laboratory Tests WBC 0.7 L* (4.4-11.0) K/mm3 RBC 2.24 L (4.6-6.2) M/mm3 Hgb 6.4 L (13.0-16.5) g/dl Diagnostic Data: Diagnostic Data Chest X-Ray 12/07/17 15:07 IMPRESSION: Significantly decrease in size of the previous large left pleural effusion. Presently, there is a moderate amount of pleural fluid on the left side. Left chest tube in place. There is no pneumothorax. Right lung is clear. Electronically Signed: Jn Dubon MD at 16:00 EDT , Service support , ADDENDUM: 12/07/17 1607 IMPRESSION: Significantly decrease in size of the previous large left pleural effusion. Presently, there is a moderate amount of pleural fluid on the left side. Left chest tube in place. There is no pneumothorax. Right lung is clear. Electronically Signed: Jn Dubon MD at 16:00 EDT , Service support , Assessment and Plan 62-year-old male with: 1. Non-small cell lung cancer, clinical stage IIIB on combined modality chemoradiation. Will hold chemotherapy and radiation this week due to severe pancytopenia and left Pleurx cath infection. 2. Pancytopenia severe due to recent chemotherapy and radiation on top of anemia of chronic disease. Chemo and radiation will be held this week to allow for bone marrow recovery. A)Transfused with packed red blood cells to a target hemoglobin above 7-8 g per DL depending on symptomatology. B) Will start growth factor support with Granix (5 mg/kg body weight subcu daily) until neutrophil recovery above 1000 for 3 successive days. C) Prophylactic platelet transfusion if less than 10 K or active bleeding. 3. Broad-spectrum antibiotic cover as per primary service. 4. Continue tube feeds. 5. Venous thromboembolism prophylaxis, okay to use pharmacologic agent as long as platelet count above 50,000. Patient encouraged to ambulate. Thank you for involving me in his care, will follow-up during hospital stay and after discharge Medications: Prescriptions This Visit Medication Instructions Recorded Clonazepam [Klonopin] 0.5 mg PO TID 12/07/17 Medications Added to Medication List This Visit Dexamethasone [Decadron] Med 12/08/17 08:00 Active 4 mg GT DAILY@0800 Tbo-Filgrastim [Granix] Med 12/08/17 11:00 Active 300 mcg SC DAILY Primary Care Provider: ROYCE Montero Referring Provider: 12/08/17 1863 <Electronically signed by Serina Hollingsworth MD> Date Serina Hollingsworth MD Cosigner Signature (if applicable): Date CC: ROYCE Sarmiento; Serina Hollingsworth MD; Ron Padron MD Signed Observed: 12/08/2017 Status: F Source: GIANNA CULTURE, DEEP WOUND 9:26 AM [facility] REPOSITORY Order Date: 12/18/16 Comments: 2. swab from pleurex catheter site Gram Stain Gram Stain 1+ Gram positive cocci No White Blood Cells Wound Culture RESULTS CALLED TO ANITA/WIN 12/10/17 0803 Andreia Dc. REPORT READ BACK BY SAME. Copy of report sent to Infection Control Printer [id number] 12/10/17 0806 LISA. ORGANISM 1: Meth. resistant Staph. aureus Amount Growth 3+ Meth. resistant Staph. aureus: REACTION Benzylpenicillin NF 0.25 R Cefoxitin *NF + Clindamycin $$ <=0.25 R Inducable Clindamycin Resistan + Erythromycin $ >=8 R Gentamicin $ <=0.5 S Levofloxacin $ <=0.12 S Linezolid $$$$ 1 S Oxacillin NF 1 R Tigecycline $$$$ <=0.12 S Rifampin $$ <=0.5 S Tetracycline NF <=1 S Trimethoprim/Sulfametho $ <=10 S Vancomycin $ <=0.5 S (NF) indicates non-formulary drug at [facility]. Approval by Infectious Disease Specialist required before non-formulary drugs may be ordered and/or dispensed. * CLSI guidelines does not recommend testing of cephalosporins. This interpretation is deduced from Beta-lactam/penicillin results. Cult, Anaerobic No anaerobic bacteria isolated. Performed By: #### M100.1500 #### [facility] [address] [place], [place], [address] Observed: 12/08/2017 Status: F Source: BEECHER CULTURE, DEEP WOUND 9:26 AM [facility] REPOSITORY Order Date: 12/18/16 Comments: 1. Chest Tube Catheter Tip Gram Stain Gram Stain Rare White Blood Cells 3+ Gram positive cocci Wound Culture Copy of report sent to Infection Control Printer [id number] 12/11/17 0809 LISA. ORGANISM 1: Meth. resistant Staph. aureus Amount Growth Growth Meth. resistant Staph. aureus: REACTION Benzylpenicillin NF 0.25 R Cefoxitin *NF + Clindamycin $$ <=0.25 S Inducable Clindamycin Resistan - Erythromycin $ >=8 R Gentamicin $ <=0.5 S Levofloxacin $ 0.25 S Linezolid $$$$ 2 S Oxacillin NF 2 R Tigecycline $$$$ <=0.12 S Rifampin $$ <=0.5 S Tetracycline NF <=1 S Trimethoprim/Sulfametho $ <=10 S Vancomycin $ 1 S (NF) indicates non-formulary drug at [facility]. Approval by Infectious Disease Specialist required before non-formulary drugs may be ordered and/or dispensed. * CLSI guidelines does not recommend testing of cephalosporins. This interpretation is deduced from Beta-lactam/penicillin results. Cult, Anaerobic No anaerobic bacteria isolated. Performed By: #### M100.1500 #### [facility] [address] [place], [address] TYPE AND SCREEN Collected: 12/08/2017 Status: F Source: BEECHER 5:45 AM [facility] REPOSITORY Order Comment: CMV NEG? N Number of units to transfuse: 1 Reason for Ordering Blood: Acute Are the blood/blood products to be transfused? Y Is the patient having/had surgery? N Give When? When Ready Irradiated? Y Leukodepleted? Y TYPE CODE TESTS RESULT OUT OF RANGE REFERENCE UNITS LAB B10.0800 O Normal BLOOD TYPE GEL NEGATIVE LAB B100.4000 Normal Antibody NEGATIVE Screen Performed By: #### B101.7450 #### [facility] [address] [place], [address] RC Collected: 12/08/2017 Status: F Source: BEECHER 5:45 AM [facility] REPOSITORY TYPE CODE TESTS RESULT OUT OF REFERENCE UNITS RANGE LAB U100.0000 [id number] TRANSFUSED PRODUCT: T AND S with Crossmatch, Red Cells COUNT: 1 Performed By: #### U100.0000 #### [facility] - refer to report for specific site CBC-COMPLETE BLOOD CNT Collected: 12/08/2017 Status: C Source: BEECHER NO DIFF 4:40 AM [facility] REPOSITORY Order Comment: SPECIMEN OBTAINED FROM LINE DRAW TYPE CODE TESTS RESULT OUT OF RANGE REFERENCE UNITS LAB L100.1000 4.4-11.0 K/mm3 Low alert WBC 0.7 Result Comment: CRITICAL VALUE VERIFIED. CALLED TO MARIO CARROLL MS3 12/08/17 0517 Yusra Judge. RESULTS READ BACK BY SAME . LAB L100.1200 4.6-6.2 M/mm3 Low 2.24 RBC LAB L100.1300 13.0-16.5 g/dl Low 6.4 HGB LAB L100.1400 40-54 % Low 20.1 HCT LAB L100.1500 80-94 fL Normal 89.7 MCV LAB L100.1600 27.0-32.0 pg Normal 28.6 MCH LAB L100.1700 32-36 g/gl Low 31.8 MCHC LAB L100.1810 11.6-14.6 % High 17.7 RDW CV LAB L100.1820 35.1-43.9 fl High 52.8 RDW SD LAB L100.1900 150-450 K/mm3 Low 97 PLT LAB L100.2000 6.2-12.0 fl Normal 9.3 MPV LAB L100.9900 Normal Reviewed PATH REV Result Comment: Pancytopenia. Clinical correlation necessary. Los Simental M.D. 12/08/17 AMENDED REPORT 12/08/17 1417 PATH REV previously reported as: September Performed By: #### L100.0500, L100.4500 #### [facility] [address] [place], [place], [address] DIFFERENTIAL COMMENT Collected: 12/08/2017 Status: F Source: BEECHER 4:40 AM [facility] REPOSITORY Order Comment: SPECIMEN OBTAINED FROM LINE DRAW TYPE CODE TESTS RESULT OUT OF RANGE REFERENCE UNITS LAB L100.4500 Normal SMEAR COMMENT SCANNED Result Comment: LEUKOCYTOPENIA NOTED 2+ ROULEAUX NOTED Performed By: #### L100.0500, L100.4500 #### [facility] [address] [place], [address] SERUM CREATININE AND Collected: 12/08/2017 Status: F Source: BEECHER GFR 4:40 AM [facility] REPOSITORY Order Comment: SPECIMEN OBTAINED FROM LINE DRAW TYPE CODE TESTS RESULT OUT OF RANGE REFERENCE UNITS LAB L501.1100 0.70-1.30 mg/dL Normal 0.75 CREAT,SERUM Result Comment: The validity of the calculated GFR AND GFRAA in patients over 70 years has not been determined. Clinical correlation is essential. LAB L501.1110 >60 mL/min Normal EST GFR 112 Result Comment: Non- GFR Calc LAB L501.1115 >60 mL/min Normal EST GFR - AA 136 Result Comment: GFR Calc LAB L501.1255 ml/min Normal Estimated CRCL 82.48 Performed By: #### L501.1105 #### [facility] [address] [place], [address] CNOP Observed: 12/08/2017 Status: COMPLETED Source: SELMA 12:00 AM [facility] REPOSITORY Operative Note (Enc) (GENSWS) Progress Notes: oRn Padron MD 12/15/2017 9:37 PM Signed OPERATIVE NOTATION FOR [facility] SURGICAL PROCEDURE. December 08, 2017 Tomy Munson 1955 [id number] male PROCEDURE: 27297 - removal Pleurex Catheter SURGEON: Boni Padron M.D. FACS SPECIAL INSPECTOR: None DEPT: WQ PROVIDER: G30=RfnivquRon Padron MD POS: [id number] DIAGNOSIS: (C34.92) Malignant neoplasm of left lung, unspecified part of lung (HCC) (primary encounter diagnosis) (J91.0) Malignant pleural effusion ASA CLASS: 3 - Severe FINDINGS: COMPLICATIONS: None PMHx - PAST MEDICAL HISTORY Diagnosis Date - Anemia - Dysphagia - Hyponatremia - Malnutrition (HCC) - Squamous cell carcinoma head and neck - Xerostomia COMORBIDITIES - Smoking/Tobacco, Cancer Metastasis, Current Cancer Therapy, Chronic Pulmonary, COPD and Active Tx pulmonary Disease Post Op Occurrences - None Wound Classification - Contaminated Operative note dictated in the [facility] dictation system. Ron Padron MD Encounter Status:Closed by RON PADRON MD on 12/15/17 EMERGENCY DEPARTMENT Observed: 12/07/2017 Status: F Source: BEECHER SUMMARY 11:15 PM [facility] REPOSITORY [facility] Medical Records Department [address] [place] [address] Emergency Department Summary 12/07/17 1522 MR#: [id number] Acct: [id number] Name: TOMY MUNSON Rep #: [id number] : 1955 62 From: Helena River DO PCP: ROYCE Montero Status: ADM IN - ER Visit Summary Date of Service: 12/07/17 Chief Complaint: Concern for infection to pleural catheter site [] History of Present Illness: The patient is a 62 M [presents the emergency department with complaint of discomfort over the area of the pleural catheter with erythema to the chest wall. Patient states that he saw Dr. Ron Camp 2 days ago to have the pleural catheter evaluated and was told that he would have to have it removed soon. Patient states he has not been getting any drainage from the catheter. Patient denies any increasing shortness of breath. Patient has not had fever at home. He does describe increased fatigue. Patient's last chemotherapy was 3 days ago. Patient's last radiation was 2 days ago. Patient currently being treated for non-small cell carcinoma of the lung. Patient also with history of laryngeal cancer.] Physical Examination: HEENT-PERRLA, EOMI. Cranial nerves II through XII grossly intact. TMs clear. Mucous membranes moist. No adenopathy. Cardiovascular-regular rate and rhythm without murmur or ectopy Lungs-clear to auscultation, chest wall stable without crepitus or subcu emphysema. Patient does have a left pleural catheter coming from the left anterior chest and along the tract of it subcutaneously he is tender and he has erythema laterally. No fluctuance or definite abscess noted. Abdomen-normoactive bowel sounds, soft, nontender, no rebound or rigidity, no peritoneal signs. Extremities-intact 4, normal range of motion, normal pulses, atraumatic[] Test Results: [CBC with differential obtained showed a white blood cell count of 0.5, heme globin 7.1, hematocrit 22, platelets 79. Chemistries unremarkable. Lactate is pending. Blood cultures ordered and pending. Chest x-ray showed decreased effusion of the left chest and a left pleural catheter noted in left chest.] Emergency Department Course and Treatment: [Patient was started on Zosyn empirically in case was discussed with Dr. Ron Chaudhary who will evaluate patient in the department. Patient also discussed with hospitalist who will admit patient.] Given the fact the patient has low-grade temperature and is neutropenic with concern for chest wall infection I feel patient needed to be admitted for further management. Treatment Plan: Admit] Disposition: [Admit] Impression: [Pancytopenia Chest wall cellulitis] This note was generated with [employer] dictation software. It may contain incorrect words, spelling, and punctuation that were not noted in review of the chart prior to signing ED Disposition - Plan for ED Patient: Chief Complaint: Wound Referrals: Alfred Sarmiento NP-C [Primary Care Provider] - What to do if you have Problems For any increased pain, shortness of breath, bleeding, nausea or vomiting, chest pain, or any unexpected problems, contact your Primary Care Provider. Call [facility] ([phone]) or report to the closest Emergency Room. Call 911 if necessary. 12/07/17 1885 <Electronically signed by Helena River DO> Date Helena River DO Cosigner Signature (If Indicated): Date CC: CAD ENGINEER-Haja Sarmiento HISTORY AND PHYSICAL Observed: 12/07/2017 Status: F Source: BEECHER EXAM 5:45 PM [facility] REPOSITORY [facility] Medical Records Department [address] [place] [address] History and Physical 12/07/17 1709 MR#: [id number] Acct: [id number] Name: TOMY MUNSON Rep #: [id number] : 1955 62 From: Aminah Vaz MD PCP: ROYCE Montero Status: ADM IN Y Location: [facility] [place] Problem List (1) Cellulitis Status: Acute History of Present Illness Date of Admission: 12/07/17 Chief Complaint: redness over left flank The patient is a 62 year old M with a history of small cell lung cancer s/p left chest tube placement, laryngeal cancer was admitted via the ED on 12/07/2017 with a complaint of redness, minimal swelling and tenderness over the left chest wall, just over the area of the chest tube placement. Symptoms started just 2 days ago. According to patient, he saw Dr. Briones the surgeon in his office [place] he did not have these symptoms. Friday night he noted that he was having the symptoms and he denied any fever or chills. He has had minimal drainage from the chest tube over the past couple of days. In the ED vitals were stable, and CBC with differential showed white cell count of 0.5 with hemoglobin of 7.1 and platelets of 79. Chemistries were unremarkable. Blood cultures were ordered and pending. Chest x-ray showed a decreased effusion of the left chest and a left pleural catheter noted in the left chest. Patient was started on IV Zosyn. He has been admitted and managed for cellulitis of left chest wall. [] Past Medical History Past Medical History (Chronic Problems): Chronic Problems (Last Reviewed 11/27/17 @ 09:38 by Carlota Miguel) PEG (percutaneous endoscopic gastrostomy) status (Chronic) Tobacco dependence in remission (Chronic) Pulmonary nodule, left (Chronic) History of laryngeal cancer (Chronic) Non-small cell carcinoma of left lung, stage 3 (Chronic) Dysphagia (Chronic) Chronic anemia (Chronic) Medical History: Medical History (Last Reviewed 11/27/17 @ 09:38 by Carlota Miguel) Anemia D64.9 Chicken pox B01.9 Dysphagia R13.10 Hypernatremia E87.0 Hyponatremia E87.1 Hypothyroidism E03.9 LEFT WRIST SURGERY Laryngeal cancer C32.9 Lymphadenitis I88.9 Measles B05.9 Mumps B26.9 Status post insertion of percutaneous endoscopic gastrostomy (PEG) tube Z93.1 Allergies Iodinated Contrast- Oral and IV Dye [CT] Allergy (Mild, Verified 12/07/17 14:52) Rash Home Medications: Ambulatory Orders Medication Instructions Recorded Surgical History: Surgical History (Last Reviewed 11/27/17 @ 09:38 by Carlota Miguel) History of thoracentesis Z98.890 History of hernia repair Z98.890, Z87.19 Surgical History: herniorrhaphy, - - PEG tube placement. Psychiatric History: Anxiety Lives: With Family Smoking Status: Former smoker - Quit 3 years ago. Had about a 37.5-pack-year smoking history. Alcohol: None - Quit 3 years ago - *Family History Paternal Family History: Family History (Last Reviewed 11/27/17 @ 09:38 by Carlota Miguel) Father Heart disease History Items: Heart Disease - Maternal Family History: Family History (Last Reviewed 11/27/17 @ 09:38 by Carlota Miguel) Father Heart disease History Items: No pertinent history Review of Systems Constitutional: Denies: Chills, Fever, Weight Change Eyes: Reports: Blurred vision HEENT: Denies: Head Aches, Sinus Congestion, Sinus Drainage Cardiovascular: Denies: Chest Pain, Chest Pressure, Chest Tightness, Light Headedness, Palpitations, Paroxysmal Noc. Dyspnea Respiratory: Denies: Cough, Shortness of breath at rest, Shortness of breath upon exertion, Sputum production, Wheezing Gastrointestinal: Denies: Abdominal Pain, Nausea, Vomiting Genitourinary: Denies: Dysuria Musculoskeletal: Denies: Joint Pain, Joint Tenderness Skin: Reports: - - 10x8cm erythematous, warm area over left flank, over chest tube. Mild tenderness and minimal swelling on palpation Neurological: Denies: Numbness, Tingling, Focal weakness Psychiatric: Denies: Anxiety, Depression, Homicidal Ideations, Suicidal Ideations Hematologic/ Lymphatic: Denies: Easy Bruising, Easy Bleeding VTE Information - Inpt Only VTE Present on Admission: No VTE Mechan Device Prophylaxis: SCD's VTE Pharm Prophylaxis ordered?: No Reason prophylaxis not ordered:: Medical Contraindication - thrombocytopenia Patient Problems: Active and Suspected Problems (Last Reviewed 11/27/17 @ 09:38 by Carlota Miguel) Chemotherapy management, encounter for (Acute) Cellulitis (Acute) - Physical Exam General: Alert, Oriented x3, Cooperative, No apparent distress HEENT: Atraumatic, PERRLA, EOMI, Normocephalic Oral: Moist Mucosa Neck: Supple, No JVD, Negative Carotid Bruits Lungs: Normal air movement, No rhonchi, - - moderately decreased breath sounds in left lower lung romeo; no wheezing or crackles Cardiovascular: Regular rate, Regular Rhythm, Normal S1, Normal S2, No murmurs Abdomen: Bowel Sounds Present, Soft, Non Tender, Non-Distended, No Hepato-splenomegaly, - - PEG tube in place Extremities: No clubbing, No cyanosis, No edema, Capillary Refill Less than 3 Seconds Skin: - - erythematous, warm, mildly tender and swollen area over left flank, over the left chest tube Musculoskeletal: No Tenderness to Palpation of Joints or Extremities Lymphatic: No Cervical, Supraclavicular, or Inguinal Adenopathy Neurological: Cranial nerves II-XII grossly intact, Motor Exam 5/5 strength throughout Psych/Mental Status: Normal Affect, Alert and oriented to time, place, person, mood and affect Vital Signs Temp Pulse Resp BP Pulse Ox 99.3 F H 94 16 132/70 H 97 12/07/17 14:48 12/07/17 17:08 12/07/17 17:08 12/07/17 17:08 12/07/17 17:08 Oxygen Delivery Method Room Air Weight: 125 lb 3.561 oz Body Mass Index (BMI) 19.5 Laboratory Tests Past 24 Hrs WBC 0.5 L* RBC 2.50 L Hgb 7.1 L Hct 22.1 L Diagnostic Data Chest X-Ray 12/07/17 15:07 IMPRESSION: Significantly decrease in size of the previous large left pleural effusion. Presently, there is a moderate amount of pleural fluid on the left side. Left chest tube in place. There is no pneumothorax. Right lung is clear. Electronically Signed: Jn Dubon MD at 16:00 EDT , Service support , ADDENDUM: 12/07/17 1607 IMPRESSION: Significantly decrease in size of the previous large left pleural effusion. Presently, there is a moderate amount of pleural fluid on the left side. Left chest tube in place. There is no pneumothorax. Right lung is clear. Electronically Signed: Jn Dubon MD at 16:00 EDT , Service support , Assessment/Plan All Active Problems (Last Reviewed 11/27/17 @ 09:38 by Carlota Miguel) Atrial fibrillation and flutter (Acute) Pleural effusion (Acute) Chemotherapy management, encounter for (Acute) Cellulitis (Acute) 60-year-old male with a history of non-small cell lung cancer status post chest tube placement and laryngeal cancer admitted with a complaint of redness and swelling of his left chest wall, over site of chest tube. 1. Cellulitis over left chest wall (over site of left chest tube) * symptoms started 2 days ago. No associated fever or chills. Fever was however 99.3F on admission. * wbc is 0.2, likely due to chemo; last session of chemo was Friday. * will admit to med surg 3. * started on IV zosyn. will continue. Blood cultures taken in the ED. * dicussed with Dr Chaudhary; to continue IV zosyn. If there is no improvement tomorrow, will remove chest tube catheter, and tip will be cultured * general surgery consulted. * 2. 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 says he is now having minimal drainage from chest tube over the last few days * has had 3 sessions of chemotherapy, with last session being 1 week ago. Has had 7 sessions of radiotherapy. Sees Dr Leigh the oncologist * wbc is 0.5; likely due to chemo effect; will consult oncology. * will give sc granix 300mg once, in light of febrile neutropenia * oncology consult placed. * 3. History of laryngeal cancer * s/p radiation. * stable * 4. Anemia (normocytic, normochromic) * Hb is 7.1; baseline is around 8. * will monitor; if it falls below 7, will transfuse. * 5. Chronic hyponatremia: * Sodium is 130. however, Na has been within normal limits this year ranging between 135-138. This is likely due to lung cancer. Will monitor. 6. Thrombocytopenia: Platelets 79. Will monitor. This is likely due to chemotherapy as platelets on 12/04/2017 was 182. Will monitor closely. 7. DVT prophylaxis; * heparin. Given the platelets of 79, patient is a very high risk of DVT due to history of cancer. * Will level give subcut heparin 5000 every 12.. If platelets fall below 50,000. * SCDs * 8. Nutrition: patient unable to eat due to history of laryngeal cancer. Has a PEG tube in place. Says he takes Isosource tube feeding 3x daily. Discussed with pharmacy; we dont have Isosource in our fomulary, the equivalent is Osmolite 1.2. Will start Osmolite 1.2 240mls tid. Nutrition consult placed. 9. Code status: patient counselled extensively about different types of code status and their interpretation. Patient wants to be Full code. This note was generated with [employer] dictation software. It may contain incorrect words, spelling, and punctuation that were not noted in checking the note before signing. Code Visit Inpatient E AND M: 64321 Init Hosp L3 Procedures: 51442 Advncd Care Plan 30 Min 12/07/17 3555 <Electronically signed by Aminah Vaz MD> Date Aminah Vaz MD Cosigner Signature: Date (if applicable) CC: CAD ENGINEER-C Alfred Sarmiento; Aminah Vaz MD Signed LACTIC ACID Collected: 12/07/2017 Status: F Source: BEECHER 4:30 PM [facility] REPOSITORY Order Comment: Yes/No query for Sepsis Lactate Rule Y TYPE CODE TESTS RESULT OUT OF RANGE REFERENCE UNITS LAB L503.6005 0.4-2.0 mmol/L Normal LACTIC ACID 1.4 Performed By: #### L503.6005 #### [facility] [address] [place], [place], [address] Observed: 12/07/2017 Status: F Source: BEECHER CULTURE, BLOOD (WB) 4:15 PM [facility] REPOSITORY BC No growth in 5 days. Performed By: #### M200.1000 #### [facility] [address] [place], [address] CBC W/DIFF, AUTOMATED Collected: 12/07/2017 Status: C Source: GIANNA 4:05 PM [facility] REPOSITORY TYPE CODE TESTS RESULT OUT OF RANGE REFERENCE UNITS LAB L100.1000 4.4-11.0 K/mm3 Low alert WBC 0.5 Result Comment: RESULTS CALLED TO Boni SKINNER 12/07/17 Heavenly Blanton. REPORT READ BACK BY SAME. LAB L100.1200 4.6-6.2 M/mm3 Low RBC 2.50 LAB L100.1300 13.0-16.5 g/dl Low HGB 7.1 LAB L100.1400 40-54 % Low HCT 22.1 LAB L100.1500 80-94 fL Normal MCV 88.4 LAB L100.1600 27.0-32.0 pg Normal MCH 28.4 LAB L100.1700 32-36 g/gl Normal MCHC 32.1 LAB L100.1810 11.6-14.6 % High RDW 18.0 CV LAB L100.1820 35.1-43.9 fl High RDW 55.3 SD LAB L100.1900 150-450 K/mm3 Low PLT 79 LAB L100.2000 6.2-12.0 fl Normal MPV 8.8 LAB L100.2100 47-70 % High NEUT% 87.5 LAB L100.2200 19-41 % Low LY% 8.3 LAB L100.2300 0-10 % Normal MONO% 2.1 LAB L100.2400 0-5 % Normal EO% 0.0 LAB L100.2500 0-1 % Normal BASO% 0.0 LAB L100.2550 0.0-0.9 % High IM 2.100 GRAN % Result Comment: IG% - Immature Granulocytes (promyelocytes, myelocytes and metamyelocytes) > 1% indicates that a LEFT SHIFT is Present. LAB L100.2620 2.0-7.7 X10 3/uL Low Absolute Neut 0.4 LAB L100.2720 0.83-4.51 X10 3/ul Low Absolute Lymph 0.04 LAB L100.4500 Normal SMEAR COMMENT SCANNED LAB L100.5500 ADEQ Normal PLT EST MOD DEC LAB L100.9900 Normal PATH REV Reviewed Result Comment: Pancytopenia. Clinical correlation necessary. Los Simental M.D. 12/08/17 AMENDED REPORT 12/08/17 1415 PATH REV previously reported as: Summer aguilera Performed By: #### L100.0100 #### [facility] [address] [place], [address] BASIC METABOLIC Collected: 12/07/2017 Status: F Source: GIANNA PROFILE (BMP) 4:05 PM [facility] REPOSITORY TYPE CODE TESTS RESULT OUT OF RANGE REFERENCE UNITS LAB L501.0100 74-106 mg/dL High GLU 117 Result Comment: Fasting Glucose result from 100 to 125 mg/dL suggests IMPAIRED HOMEOSTASIS per A.D.A. criteria. Please note revised GLUCOSE reference range effective 2017. LAB L501.1000 7-18 mg/dL High BUN 27 LAB L501.1100 0.70-1.30 mg/dL Normal CREAT,SERUM 0.85 Result Comment: The validity of the calculated GFR AND GFRAA in patients over 70 years has not been determined. Clinical correlation is essential. LAB L501.1110 >60 mL/min Normal EST GFR 97 Result Comment: Non- GFR Calc LAB L501.1115 >60 mL/min Normal EST GFR - AA 117 Result Comment: GFR Calc LAB L501.1255 ml/min Normal Estimated CRCL 72.39 LAB L501.1300 10-20 RATIO High BUN/CRE 31.7 LAB L501.2200 8.5-10 mg/dL Normal .1 CA 8.6 LAB L501.5300 136-14 mmol/L Low 5 NA 130 LAB L501.5600 3.5-5. mmol/L Normal 1 K 4.5 LAB L501.5900 98-107 mmol/L Low CL 94 LAB L501.6100 21.0-3 mmol/L Normal 2.0 CO2 31.0 LAB L501.6200 5-15 Normal GAP 5 Performed By: #### L500.2500 #### [facility] [address] [place], [place], [address] Observed: 12/07/2017 Status: F Source: GIANNA CULTURE, BLOOD (WB) 4:05 PM [facility] REPOSITORY BC No growth in 5 days. Performed By: #### M200.1000 #### [facility] [address] [facility] [place], [place], [address] CHEST PA AND LATERAL Observed: 12/07/2017 Status: F Source: GIANNA 3:09 PM [facility] REPOSITORY [facility] Imaging Services [address] [place] [address] Chest PA and Lateral MR#: [id number] Acct: [id number] Name: TOMY MUNSON Rep #: [id number] : 1955 M 62 From: Jn Dubon MD PCP: ROYCE Montero Status: REG ER Study: Chest PA and Lateral Date of Exam: 12/07/17 Exam# [id number] Ordering Dr: Helena River DO ADDENDUM by Jn Dubon on 12/07/17 at 1600 RAD/Chest PA and Lateral IMPRESSION: Significantly decrease in size of the previous large left pleural effusion. Presently, there is a moderate amount of pleural fluid on the left side. Left chest tube in place. There is no pneumothorax. Right lung is clear. Electronically Signed: Jn Dubon MD at 16:00 EDT , Service support , 12/07/17 1607 Date cc: CAD ENGINEER-C Alfred Sarmiento; Helena River DO * Signed ADDENDUM by Jn Dubon on 12/07/17 at 1600 ADDENDUM Comparison date has been corrected STUDY: X-RAY CHEST REASON FOR EXAM: Male, 62 years old. PT STATED HX OF LUNG CANCER, CHEMO, AND A PLEURAL CATHETER INFECTION TECHNIQUE: Frontal and lateral views of the chest. COMPARISON: 11/21/2017 FINDINGS: Chronic appearing increased interstitial lung markings. There is a left Port-A-Cath and/or mediport in place. The tip is in the superior vena caval - atrial junction. Significantly decrease in size of the previous large left pleural effusion. Presently, there is a moderate amount of pleural fluid on the left side. Left chest tube in place. There is no pneumothorax. Right lung is clear. Normal heart size. Normal mediastinum and tashia. Normal visualized pulmonary arteries. There is atherosclerotic calcification of the aortic arch with tortuosity. There are diffuse degenerative changes of the visualized thoracic spine. There is degenerative osteoarthritis of the bilateral shoulders. There is no demonstrated abnormality of the visualized soft tissue structures of the upper abdomen. 12/07/17 1600 Date cc: ROYCE Sarmiento; Helena River DO * Signed STUDY: X-RAY CHEST REASON FOR EXAM: Male, 62 years old. PT STATED HX OF LUNG CANCER, CHEMO, AND A PLEURAL CATHETER INFECTION TECHNIQUE: Frontal and lateral views of the chest. COMPARISON: 12/11/2017 FINDINGS: Chronic appearing increased interstitial lung markings. There is a left Port-A-Cath and/or mediport in place. The tip is in the superior vena caval - atrial junction. Significantly decrease in size of the previous large left pleural effusion. Presently, there is a moderate amount of pleural fluid on the left side. Left chest tube in place. There is no pneumothorax. Right lung is clear. Normal heart size. Normal mediastinum and tashia. Normal visualized pulmonary arteries. There is atherosclerotic calcification of the aortic arch with tortuosity. There are diffuse degenerative changes of the visualized thoracic spine. There is degenerative osteoarthritis of the bilateral shoulders. There is no demonstrated abnormality of the visualized soft tissue structures of the upper abdomen. RAD/Chest PA and Lateral IMPRESSION: Significantly decrease in size of the previous large left pleural effusion. Presently, there is a moderate amount of pleural fluid on the left side. Left chest tube in place. There is no pneumothorax. Right lung is clear. Electronically Signed: Jn Dubon MD at 16:00 EDT , Service support , CC: ROYCE Sarmiento; Helena River DO [employer] Driver: Signed PROGRESS Observed: 12/06/2017 Status: COMPLETED Source: SELMA 8:03 AM [facility] REPOSITORY HNO ID: [id number] Author: Ron Padron Service: (none) Author Type: Physician Type: Progress Notes Filed: 12/06/2017 8:08 AM Note Text: FOLLOW UP VISIT - POST OP NAME: Tomy Munson [facility] NO.: [id number] DATE OF SERVICE: 12/04/2017 : 1955 REFERRING PHYSICIAN: Alfred Sarmiento CNP Tomy is a patient I am following for malignant left pleural effusion. I performed a left tunnel Pleurx catheter placement on November 11, 2017. The patient had significant locally advanced disease and after withdrawal of fluid from the left pleural space. The lung failed to expand significantly and actually had a degree of shifting in the mediastinum towards the side of the disease. The patient has since been getting his chemotherapy and also had bronchoscopy performed with attempt at opening some of the proximal airways. Overall, the patient notes improved shortness of breath and functional status. He had a CT scan within the last 2 weeks which demonstrated significant reexpansion and aeration of the upper left lobe. There is still a consolidated not expanded lower lobe with some pleural fluid still present around it. The patient currently notes that he gets a variable amount of fluid from the Pleurx catheter when he is draining it every few days. his appetite has been good. he denies fever, chills or abdominal pain. he does note some no significant incisional discomfort. VITALS: Blood pressure 108/58, pulse 87, SpO2 97 %. On examination, improved aeration of the left upper lobe, which still decreased breath sounds and dullness to percussion left base. The catheter site is intact Assessment IMPRESSION: Status post left Pleurx catheter placement PLAN: If the patient notes any problems or signs of wound infections, he should contact me immediately. I am hopeful that with continued treatment, his lower lobe also reexpand and the catheter will be able to drain the remaining pleural fluid that still seems to be present. I discussed with the patient that if it gets to the point that he has no continuous fluid output and, or a follow-up chest x-ray demonstrates better reexpansion of the lower lobe with no residual fluid in the chest space, then we can remove the Pleurx catheter in the office. Diagnoses: (C34.92) Malignant neoplasm of left lung, unspecified part of lung (HCC) (primary encounter diagnosis) (J91.0) Malignant pleural effusion Return to Clinic: The patient is instructed to follow- up with me as needed. Ron Padron MD CNOV Observed: 12/04/2017 Status: COMPLETED Source: SELMA 1:00 PM [facility] REPOSITORY Office Visit (GENSWS) MARNITOMY ([id number]) 1955 M Date Time Provider Department 12/04/17 1:00 PM RON PADRON During your visit today, we recorded the following information about you: Pulse Blood pressure 87/minute 108/58 Ron Padron MD 12/06/2017 8:08 AM Signed FOLLOW UP VISIT - POST OP NAME: Tomy [facility] NO.: [id number] DATE OF SERVICE: 12/04/2017 : 1955 REFERRING PHYSICIAN: Alfred Sarmiento CNP Tomy is a patient I am following for malignant left pleural effusion. I performed a left tunnel Pleurx catheter placement on November 11, 2017. The patient had significant locally advanced disease and after withdrawal of fluid from the left pleural space. The lung failed to expand significantly and actually had a degree of shifting in the mediastinum towards the side of the disease. The patient has since been getting his chemotherapy and also had bronchoscopy performed with attempt at opening some of the proximal airways. Overall, the patient notes improved shortness of breath and functional status. He had a CT scan within the last 2 weeks which demonstrated significant reexpansion and aeration of the upper left lobe. There is still a consolidated not expanded lower lobe with some pleural fluid still present around it. The patient currently notes that he gets a variable amount of fluid from the Pleurx catheter when he is draining it every few days. his appetite has been good. he denies fever, chills or abdominal pain. he does note some no significant incisional discomfort. VITALS: Blood pressure 108/58, pulse 87, SpO2 97 %. On examination, improved aeration of the left upper lobe, which still decreased breath sounds and dullness to percussion left base. The catheter site is intact Assessment IMPRESSION: Status post left Pleurx catheter placement PLAN: If the patient notes any problems or signs of wound infections, he should contact me immediately. I am hopeful that with continued treatment, his lower lobe also reexpand and the catheter will be able to drain the remaining pleural fluid that still seems to be present. I discussed with the patient that if it gets to the point that he has no continuous fluid output and, or a follow-up chest x-ray demonstrates better reexpansion of the lower lobe with no residual fluid in the chest space, then we can remove the Pleurx catheter in the office. Diagnoses: (C34.92) Malignant neoplasm of left lung, unspecified part of lung (HCC) (primary encounter diagnosis) (J91.0) Malignant pleural effusion Return to Clinic: The patient is instructed to follow- up with me as needed. Ron Padron MD Referring Provider: ALFRED SARMIENTO [[id number]] Allergies As of Date: 12/04/2017 (No Known Allergies) Date Reviewed: 12/04/2017 Reviewed by: Nino Gordon LPN - Fully Assessed Reason for Visit: Post Op [174] Cmt: post op Pleurex catheter Primary Visit Diagnosis:Malignant neoplasm of left lung, unspecified part of lung (HCC) [C34.92] Other Visit Diagnosis:Malignant pleural effusion [J91.0] Prescriptions as of 12/04/2017 Sig: DEXAMETHASONE 4 MG TABLET DAILY@0800 LEVOTHYROXINE 50 MCG TABLET 1 tablet once daily. PILOCARPINE 5 MG TABLET Take 5 mg by mouth three time* CLONAZEPAM 0.5 MG TABLET OMEPRAZOLE 20 MG CAPSULE,VINI* OXYCODONE-ACETAMINOPHEN 5 MG-* ALBUTEROL SULFATE 2.5 MG/3 ML* 2.5 mg. PROAIR HFA 90 MCG/ACTUATION A* Problem List As Of Date: 12/04/2017 (None) Letter Text Letter Text Letter Text Encounter Status:Closed by RON PADRON MD on 12/06/17 CBC W/DIFF, AUTOMATED Collected: 12/04/2017 Status: F Source: GIANNA 8:25 AM [facility] REPOSITORY TYPE CODE TESTS RESULT OUT OF RANGE REFERENCE UNITS LAB L100.1000 4.4-11.0 K/mm3 Low WBC 1.6 LAB L100.1200 4.6-6.2 M/mm3 Low RBC 3.23 LAB L100.1300 13.0-16.5 g/dl Low HGB 9.3 LAB L100.1400 40-54 % Low HCT 29.4 LAB L100.1500 80-94 fL Normal MCV 91.0 LAB L100.1600 27.0-32.0 pg Normal MCH 28.8 LAB L100.1700 32-36 g/gl Low MCHC 31.6 LAB L100.1810 11.6-14.6 % High RDW CV 17.4 LAB L100.1820 35.1-43.9 fl High RDW SD 53.8 LAB L100.1900 150-450 K/mm3 Normal PLT 182 LAB L100.2000 6.2-12.0 fl Normal MPV 8.2 LAB L100.2100 47-70 % High NEUT% 87.3 LAB L100.2200 19-41 % Low LY% 5.1 LAB L100.2300 0-10 % Normal MONO% 7.0 LAB L100.2400 0-5 % Normal EO% 0.0 LAB L100.2500 0-1 % Normal BASO% 0.0 LAB L100.2550 0.0-0.9 % Normal IM GRAN % 0.600 Result Comment: IG% - Immature Granulocytes (promyelocytes, myelocytes and metamyelocytes) > 1% indicates that a LEFT SHIFT is Present. LAB L100.2620 2.0-7.7 X10 3/uL Low Absolute Neut 1.4 LAB L100.2720 0.83-4.51 X10 3/ul Low Absolute Lymph 0.08 LAB L100.4500 Normal SMEAR COMMENT COMMENT Result Comment: SLIDE SCANNED - LYMPHOPENIA NOTED. Performed By: #### L100.0100, L500.4050, L501.5200 #### [facility] [address] [place], [address] COMPREHENSIVE METABOLIC Collected: 12/04/2017 Status: F Source: GIANNA [facility] 8:25 AM [facility] REPOSITORY Order Comment: Reason for Laboratory Test Chemotherapy TYPE CODE TESTS RESULT OUT OF RANGE REFERENCE UNITS LAB L501.0100 74-106 mg/dL Normal GLU 90 Result Comment: Please note revised GLUCOSE reference range effective 2017. LAB L501.1000 7-18 mg/dL High BUN 28 LAB L501.1100 0.70-1.30 mg/dL Normal CREAT,SERUM 1.04 Result Comment: The validity of the calculated GFR AND GFRAA in patients over 70 years has not been determined. Clinical correlation is essential. LAB L501.1110 >60 mL/min Normal EST GFR 77 Result Comment: Non- GFR Calc LAB L501.1115 >60 mL/min Normal EST GFR - AA 93 Result Comment: GFR Calc LAB L501.1255 ml/min Normal Estimated CRCL 60.24 LAB L501.1300 10-20 RATIO High BUN/CRE 26.9 LAB L501.1500 6.4-8. g/dL Normal 2 T PROT 7.0 LAB L501.1800 3.2-5. g/dL Low 0 ALB 2.9 LAB L501.1950 2.2-4. g/dL Normal 2 GLOB 4.1 LAB L501.2000 0.9-2. RATIO Low 4 A/G 0.7 LAB L501.2200 8.5-10 mg/dL Normal .1 CA 9.0 LAB L501.4100 15-37 U/L Low AST 14 LAB L501.4305 45-117 U/L Normal ALK P 61 LAB L501.4405 16-61 U/L Normal ALT 36 LAB L501.4600 0.20-1 mg/dL Normal .00 T BILI 0.60 LAB L501.5300 136-14 mmol/L Low 5 NA 131 LAB L501.5600 3.5-5. mmol/L Normal 1 K 3.7 LAB L501.5900 98-107 mmol/L Low CL 93 LAB L501.6100 21.0-3 mmol/L Normal 2.0 CO2 30.0 LAB L501.6200 5-15 Normal GAP 8 Performed By: #### L100.0100, L500.4050, L501.5200 #### [facility] [address] [place], [address] MAGNESIUM Collected: 12/04/2017 Status: F Source: [place] 8:25 AM [facility] REPOSITORY Order Comment: Reason for Laboratory Test Chemotherapy TYPE CODE TESTS RESULT OUT OF RANGE REFERENCE UNITS LAB L501.5200 1.6-2.6 mg/dL Normal MG 1.9 Performed By: #### L100.0100, L500.4050, L501.5200 #### [facility] [address] [place], [address] RADIATION ONCOLOGY Observed: 12/03/2017 Status: F Source: [place] VISIT 10:11 AM [facility] REPOSITORY [facility] [address] 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 Unfortunately due to treatment delays the lung cancer appears to have progressed and caused complete collapse of the left lung romeo and interventional pulmonology was unable to place stent. Plan was made to complete definitive chemoradiation therapy consisting of 6000 cGy in 30 fractions with concurrent Carbo/Taxol. He has a Pleurx catheter in the left lung remains completely deflated due to obstruction. Treatment Data: Treatment Site: Left lung and left hilar disease Current total dose/Total dose planned: 1400 cGy / 6000 cGy Fraction number: Chemotherapy: Weekly Carbo/Taxol Subjective: Patient reports doing well overall. Patient previously was draining Pleurx catheter daily and getting out about 200-400 cc per day. He has not drained in several days. Nutrition: PEG tube dependent, reduced about a week ago due to dietary recommendation. Down 6 lbs this week. Only water by mouth Fatigue: none Pain: occasional CW pain, mild Resp: occasional SOB (mild), occasional cough, no hemoptysis. breathing improved some this week. Swallowing: just fluids since previous H AND N cancer chemoradiation. no pain with fluids. Height/Weight/BMI: Height: 5 ft 7 in Weight: 56.608 kg; 11/26/17: 124.8 lbs, 12/03/17: 127.5 Vital Signs Stable Objective: Gen: NAD ENT: mouth dry, no thrush Resp: improved upper left lung sounds with good air movement. reduced air movement within the left lower lung romeo. CTA on the right without w/r/r CV: RRR Abd: PEG tube and Pleurx Catheter in place Skin: no erythema Laboratory Tests WBC 9.6 Hgb 8.7 L Plt Count 369 BUN 32 H Creatinine 0.92 Assessment: Tolerating radiation therapy well overall. Left lung has re-expanded superiorly in the last couple days. GERD Improved breathing Plan: Due to lung re-expansion, completed verification simulation today and may complete replan. Discussed potential radiation toxicities and their timing Recommended trying to drain Pleurx catheter as needed. Will follow up with surgery later this week. Start Omeprazole through PEG tube Continue treatment as planned, follow-up next week or sooner if needed. Thank you for allowing me to participate in the management and care of your patient. If I may answer any questions in the interim, please do not hesitate to contact me at any time. Vish Crespo DO, [employer] Tool Maker, Department of Radiation Oncology [facility] 12/03/17 1011 <Electronically signed by Vish Crespo DO> Date Vish Adan Signature: Date (if applicable) CC: ONCOLOGY VISIT REPORT Observed: 11/27/2017 Status: F Source: GIANNA 5:12 PM [facility] REPOSITORY [facility] [place] [address] OFFICE VISIT Date of Service: 11/27/17 1045 MR#: [id number] Acct: [id number] Name: TOMY MUNSON Rep #: [id number] : 1955 From: Nino Leigh MD Age/Sex: 61/M Location: ONC Status: Signed Subjective - Date of Service Date of Service:: 11/27/17 - Chief Complaint F/u for NSCLC management. - History of Present Illness Mr. 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 He was treated with concurrent chemotherapy and Radiation. He received 3 cycles of Cisplatin 100mg/m2 from 07/04/2015-08/09/2015. He had a PET/CT done on 11/30/2015 which showed no hypermetabolic activity. PET/CT on 09/30/2016 demonstrated hypermetabolic activity within the left lower lobe and at the level of the laryngeal structures. Underwent biopsies of larynx on 11/15/16 under the care of Dr. Ascencio, pathology of which were negative. Had CT guided bx of LLL nodule on 01/02/[address] scan of chest on 09/16/2017 showed increasing Left lower lobe mass and new Left hilar mass. He was referred for EBUS + biopsy, it was done on 09/26/2017 and showed squamous cell cancer. MRI brain done on 10/14/2017 was negative for brain metastases. PET/CT on 10/16/2017 shows new hypermetabolic activity in left hemithorax with activity in precarinal area mediastinum, left perihilar area and pleural effusion. He had increase in Pleural fluid, thoracentesis showed no malignant cells. Pleurx cath was placed. He was transferred to [facility] for bronchial stenting but could not be done. He was staged as NSCLC stage IIIB. He started chemotherapy with Carboplatin and Taxol every 28 days on 11/20/2017 and Radiation therapy on 11/24/2017. Comes in for Day 8 Taxol. Feels well. - Past Medical/Social History Past Medical History Past Medical History: Anemia Other Past Medical History: Hyponatremia Hypothyroidism Dysphagia Hypernatremia Lymphadenitis Measles Mumps Chicken Pox Cancer: Lung cancer,Oral cancer Other Cancer History: hx of laryngeal ca 06/21/15 treated w/chemo and radiation. Past Surgical History Surgical: Hernia repair Other Surgical History: Left Wrist surgery Peg Tube Family History Paternal Past Medical History: Heart disease Maternal Past Medical History: Unknown Social History Social History: No changes Smoking Status Former smoker Review of Systems Constitutional:: Denies: Fever, Sweats, Weight loss, Appetite change, Chills Cardiovascular:: Denies: Chest pain, Palpitations, Dyspnea on exertion, Orthopnea, PND, Shortness of breath Respiratory: Denies: Cough, Hemoptysis, Shortness of Breath, Wheezing Gastrointestinal:: Denies: Abdominal pain, Nausea, Vomiting, Diarrhea, Constipation, Hematochezia Genitourinary: Denies: Dysuria, Hematuria, 15, Flank pain Musculoskeletal:: Denies: Back pain, Myalgia, Arthralgia Skin: Denies: Rash, Skin Changes, Wounds Neurological:: Denies: Headache, Dizziness, Visual changes, Tinnitus, Hearing loss Psychiatric: Denies: Anxiety, Depression, Homicidal Ideations, Suicidal Ideations Vital Signs Height 5 ft 7 in Weight: 56.699 kg Weight in Pounds 125.0 lbs BMI 20.7 Pulse Ox 95 - Physical Exam General: Alert, Oriented x3, No apparent distress HEENT: Atraumatic, PERRLA, EOMI, Normocephalic Oropharynx:: - - edentulous Neck:: Supple, Trachea midline. Negative for: JVD, bilateral Cardiac:: Regular rate, Regular rhythm, Normal S1, Normal S2. Negative for: Murmur Lungs: Clear to auscultation, Excusion symmetrical, - - + L pleurx catheter.. Negative for: Rhonchi, Wheezes Abdomen:: - - + peg tube. Extremities:: Negative for: Cyanosis, Edema Neurological: Neuro grossly intact Skin:: Negative for: Lesions, Rash, Petechiae, Ecchymosis Psychiatric:: Appropriate affect, Euthymic Lymphatics:: Negative for: Cervical lymphadenopathy, Supraclavicular lymphadenopathy, Axillary lymphadenopathy Laboratory Data: Laboratory Tests WBC 9.6 (4.4-11.0) K/mm3 Assessment and Plan Non small cell lung cancer, squamous cell type, T4 N2 M0-stage IIIB as Pleural fluid is negative for malignant cells. Compression of Left main bronchus and Pulmonary vessels. Pleural effusion s/p Pleurx catheter. History of Laryngeal CA stage TAWNY, S/P Chemoradiation therapy. Counts OK. Plan is to proceed with C1D8 Taxol today, D15 next week. Renew Percocet, use Miralax for constipation prophylaxis, request Hospital bed. Return to clinic 3 wks with CBC/CMP for C2D1 Carboplatin/Taxol. Medications: Prescriptions This Visit Medication Instructions Recorded Ondansetron [Zofran Odt] 4 mg PO Q8H PRN PRN #30 tab 11/17/17 Primary Care Provider: ROYCE Montero Referring Provider: - Problem List (1) History of laryngeal cancer Status: Chronic (2) Non-small cell carcinoma of left lung, stage 3 Status: Chronic (3) Chemotherapy management, encounter for Status: Acute Code Visit Office Visits / Consults: [id number] OV L5 Est 11/27/17 1712 <Electronically signed by Nino Leigh MD> Date Nino Leigh MD Cosigner Signature: Date (if applicable) CC: CBC W/DIFF, AUTOMATED Collected: 11/27/2017 Status: F Source: GIANNA 9:20 AM [facility] REPOSITORY TYPE CODE TESTS RESULT OUT OF RANGE REFERENCE UNITS LAB L100.1000 4.4-11.0 K/mm3 Normal WBC 9.6 LAB L100.1200 4.6-6.2 M/mm3 Low RBC 3.09 LAB L100.1300 13.0-16.5 g/dl Low HGB 8.7 LAB L100.1400 40-54 % Low HCT 28.3 LAB L100.1500 80-94 fL Normal MCV 91.6 LAB L100.1600 27.0-32.0 pg Normal MCH 28.2 LAB L100.1700 32-36 g/gl Low MCHC 30.7 LAB L100.1810 11.6-14.6 % High RDW CV 16.1 LAB L100.1820 35.1-43.9 fl High RDW SD 53.4 LAB L100.1900 150-450 K/mm3 Normal PLT 369 LAB L100.2000 6.2-12.0 fl Normal MPV 8.9 LAB L100.2100 47-70 % High NEUT% 94.2 LAB L100.2200 19-41 % Low LY% 3.7 LAB L100.2300 0-10 % Normal MONO% 1.1 LAB L100.2400 0-5 % Normal EO% 0.5 LAB L100.2500 0-1 % Normal BASO% 0.1 LAB L100.2550 0.0-0.9 % Normal IM GRAN % 0.400 Result Comment: IG% - Immature Granulocytes (promyelocytes, myelocytes and metamyelocytes) > 1% indicates that a LEFT SHIFT is Present. LAB L100.2620 2.0-7.7 X10 3/uL Absolute Neut High 9.1 LAB L100.2720 0.83-4.51 X10 3/ul Low Absolute Lymph 0.36 LAB L100.5500 ADEQ PLT EST Normal ADEQUATE LAB L100.7600 HYPOCHROMASIA Normal 2+ Performed By: #### L100.0100, L500.4050, L501.5200, L503.6075, L503.6150, L503.6550 #### [facility] [address] [place], [address] COMPREHENSIVE METABOLIC Collected: 11/27/2017 Status: F Source: GIANNA JULIANA 9:20 AM [facility] REPOSITORY Order Comment: PLEASE ADD IRON TIBC JOHANA TO BLOOD FROM EARLIER TODAY Reason for Laboratory Test Chemotherapy TYPE CODE TESTS RESULT OUT OF RANGE REFERENCE UNITS LAB L501.0100 74-106 mg/dL High GLU 129 Result Comment: Fasting Glucose result greater than or equal to 126 mg/dL suggests DIABETES MELLITUS per A.D.A. criteria. Please note revised GLUCOSE reference range effective 2017. LAB L501.1000 7-18 mg/dL High BUN 32 LAB L501.1100 0.70-1.30 mg/dL Normal CREAT,SERUM 0.92 Result Comment: The validity of the calculated GFR AND GFRAA in patients over 70 years has not been determined. Clinical correlation is essential. LAB L501.1110 >60 mL/min Normal EST GFR 89 Result Comment: Non- GFR Calc LAB L501.1115 >60 mL/min Normal EST GFR - AA 108 Result Comment: GFR Calc LAB L501.1255 ml/min Normal Estimated CRCL 67.62 LAB L501.1300 10-20 RATIO High BUN/CRE 34.9 LAB L501.1500 6.4-8. g/dL Normal 2 T PROT 6.6 LAB L501.1800 3.2-5. g/dL Low 0 ALB 2.5 LAB L501.1950 2.2-4. g/dL Normal 2 GLOB 4.1 LAB L501.2000 0.9-2. RATIO Low 4 A/G 0.6 LAB L501.2200 8.5-10 mg/dL Normal .1 CA 8.8 LAB L501.4100 15-37 U/L Normal AST 16 LAB L501.4305 45-117 U/L Normal ALK P 61 LAB L501.4405 16-61 U/L Normal ALT 31 LAB L501.4600 0.20-1 mg/dL Normal .00 T BILI 0.30 LAB L501.5300 136-14 mmol/L Normal 5 NA 137 LAB L501.5600 3.5-5. mmol/L Normal 1 K 3.9 LAB L501.5900 98-107 mmol/L Low CL 97 LAB L501.6100 21.0-3 mmol/L High 2.0 CO2 33.0 LAB L501.6200 5-15 Normal GAP 7 Performed By: #### L100.0100, L500.4050, L501.5200, L503.6075, L503.6150, L503.6550 #### [facility] [place], [address] MAGNESIUM Collected: 11/27/2017 Status: F Source: [place] 9:20 AM [facility] REPOSITORY Order Comment: PLEASE ADD IRON TIBC JOHANA TO BLOOD FROM EARLIER TODAY Reason for Laboratory Test Chemotherapy TYPE CODE TESTS RESULT OUT OF RANGE REFERENCE UNITS LAB L501.5200 1.6-2.6 mg/dL Normal MG 1.6 Performed By: #### L100.0100, L500.4050, L501.5200, L503.6075, L503.6150, L503.6550 #### [facility] [address] [place], [place], [address] IRON BINDING Collected: 11/27/2017 Status: F Source: [facility] 9:20 AM [facility] REPOSITORY Order Comment: PLEASE ADD IRON TIBC JOHANA TO BLOOD FROM EARLIER TODAY Reason for Laboratory Test Chemotherapy TYPE CODE TESTS RESULT OUT OF RANGE REFERENCE UNITS LAB L503.6075 250-450 ug/dL Low TIBC 217 Performed By: #### L100.0100, L500.4050, L501.5200, L503.6075, L503.6150, L503.6550 #### [facility] [address] [place], [place], [id number] IRON Collected: 11/27/2017 Status: F Source: [place] 9:20 AM [facility] REPOSITORY Order Comment: PLEASE ADD IRON TIBC JOHANA TO BLOOD FROM EARLIER TODAY Reason for Laboratory Test Chemotherapy TYPE CODE TESTS RESULT OUT OF RANGE REFERENCE UNITS LAB L503.6150 65-175 ug/dL Low IRON 32 Performed By: #### L100.0100, L500.4050, L501.5200, L503.6075, L503.6150, L503.6550 #### [facility] [address] [place], [place], [id number] FERRITIN Collected: 11/27/2017 Status: F Source: [place] 9:20 AM [facility] REPOSITORY Order Comment: PLEASE ADD IRON TIBC JOHANA TO BLOOD FROM EARLIER TODAY Reason for Laboratory Test Chemotherapy TYPE CODE TESTS RESULT OUT OF REFERENCE UNITS RANGE LAB L503.6550 26-388 ng/mL High FERRITIN 1804 Performed By: #### L100.0100, L500.4050, L501.5200, L503.6075, L503.6150, L503.6550 #### [facility] [address] [place], [address] RADIATION ONCOLOGY Observed: 11/26/2017 Status: F Source: [place] VISIT 11:57 AM [facility] REPOSITORY [facility] [address] [place] [address] OFFICE VISIT Date of Service: 11/26/17 1147 MR#: [id number] Acct: [id number] Name: TOMY MUNSON Rep #: [id number] : 1955 From: Vish Crespo DO Age/Sex: 61/M Location: [facility] Status: Signed Date of Service: 11/26/17 Diagnosis: Tomy Munson is a 61-year-old male previously treated for 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 Unfortunately due to treatment delays the lung cancer appears to have progressed and caused complete collapse of the left lung ormeo and interventional pulmonology was unable to place stent. Plan was made to complete definitive chemoradiation therapy consisting of 6000 cGy in 30 fractions with concurrent Carbo/Taxol. He has a Pleurx catheter in the left lung remains completely deflated due to obstruction. Treatment Data: Treatment Site: Left lung and left hilar disease Current total dose/Total dose planned: 400 cGy / 6000 cGy Fraction number: Chemotherapy: Weekly Carbo/Taxol Subjective: Patient reports doing well overall. Patient drains Pleurx catheter daily and has gotten out up to 200-400 cc per day. Nutrition: PEG tube dependent, reduced about a week ago due to dietary recommendation. Down 6 lbs this week. Only water by mouth Fatigue: none Pain: occasional CW pain, mild Resp: occasional SOB (mild), occasional cough, no hemoptysis Height/Weight/BMI: Height: 5 ft 7 in Weight: 56.608 kg; 11/26/17: 124.8 lbs Vital Signs Temperature 99.1 F 11/26/17 08:52 Temperature Source Oral 11/26/17 08:52 Pulse Rate 96 11/26/17 08:52 Respiratory Rate 16 11/26/17 08:52 Objective: Gen: NAD ENT: mouth dry, no thrush Resp: no lung sounds on the left. CTA on the right without w/r/r CV: RRR Abd: PEG tube and Pleurx Catheter in place Skin: no irritation Laboratory Tests WBC 13.9 H Hgb 8.9 L Plt Count 506 H BUN 47 H Creatinine 1.34 H Assessment: Tolerating radiation therapy well overall. Left lung remains collapsed and imaging remains stable. No radiation associated toxicities noted at this time Plan: Discussed potential radiation toxicities and their timing Recommended trying to drain Pleurx catheter at the same time per day and keep it a fairly consistent volume in order to improve stability, if lung opens will need replanned Continue treatment as planned, follow-up next week or sooner if needed. Thank you for allowing me to participate in the management and care of your patient. If I may answer any questions in the interim, please do not hesitate to contact me at any time. Vish Crespo DO, MS [employer] Tool Maker, Department of Radiation Oncology [facility] 11/26/17 6728 <Electronically signed by Vish Crespo DO> Date Vish Crespo DO Cosigner Signature: Date (if applicable) CC: 12 LEAD ELECTROCARDIOGRAM Observed: 11/24/2017 Status: F Source: [place] 2:15 PM [facility] REPOSITORY [facility] Cardiovascular Services [address] [place] [address] 12 Lead EKG 11/21/17 1657 MR#: [id number] Acct: [id number] Name: TOMY MUNSON Rep #: [id number] : 1955 61 From: Neal Jaimes MD Attending Dr: Status: DEP ER Ordering Dr: Arya García MD Date: 11/21/17 Location: ED Sex: M C Admitted: Test Reason : CP Blood Pressure : / mmHG Vent. Rate : 100 BPM Atrial Rate : 100 BPM P-R Int : 124 ms QRS Dur : 086 ms QT Int : 346 ms P-R-T Axes : 099 100 081 degrees QTc Int : 446 ms Suspect arm lead reversal, interpretation assumes no reversal Normal sinus rhythm Right atrial enlargement Borderline ECG Confirmed by NEAL JAIMES MD ([id number]), editor in chief newspaper BLANCA NICOLAS ([id number]) on 11/24/2017 2:14:30 PM Referred By: Alfred Sarmiento Confirmed By:NEAL JAIMES MD 11/24/17 1414 Date Neal Jaimes MD CC: CAD ENGINEER-Haja Sarmiento; Arya García MD Signed EMERGENCY DEPARTMENT Observed: 11/21/2017 Status: F Source: [place] SUMMARY 11:46 PM [facility] REPOSITORY [facility] Medical Records Department [address] [place] [address] Emergency Department Summary 11/21/171999 MR#: [id number] Acct: [id number] Name: TOMY MUNSON Rep #: [id number] : 1955 61 From: Arya García MD PCP: ROYCE Montero Status: DEP ER - ER Visit Summary Date of Service: 11/21/17 Chief Complaint: Chest pain History of Present Illness: The patient is a [address] Leigh and Oanh Sarmiento. He has a history of non-small cell lung cancer that was recently diagnosed. He got his first dose of chemo yesterday. He was recently hospitalized and had a left Pleurx catheter placed for his pleural effusion. He was transferred to [facility] where he was seen by Dr. Denny and they were unable to stent his left mainstem bronchus which is a completely occluded. Patient reports that today the home health nurse came out and drained the left Pleurx catheter. States that she took off fluid much more quickly than usual and they got 250 mL off today. He states that on Friday only got 30 cc out. While she was doing this he had the onset of a sharp left-sided chest pain that is 10 at 10 worsening a 10 currently. Is worsened by deep breaths. Is relieved by nothing. He denies any ankle swelling or calf pain. Physical Examination: Vitals: Stable. Afebrile. General: Well-nourished and well-developed. Head: Normocephalic atraumatic. Neck: Supple, no lymphadenopathy. No JVD. Nontender. Cardiovascular: Regular rate and rhythm. No murmurs. Respiratory: No respiratory distress. Clear to auscultation bilaterally. Minimal erythema around the catheter site on the lower chest wall. No drainage or evidence of infection. Abdominal: Soft, nontender, nondistended, normal bowel sounds. No guarding, rebound, or peritoneal signs. Back: Nontender. Extremities: Nontender, no edema. Skin: Normal color, no rash. Neurologic: Alert and oriented 3. Cranial nerves II through XII are intact. Normal strength and sensation. Psych: Normal affect. Test Results: EKG is sinus at 100 and is unchanged from is negative. Chem-7 is more for chloride of 95, CO2 33, BUN 47, creatinine 1.34, glucose 127. CBC is more for white count 13.9 with an H AND H of 8.9-9.0, platelets of 506, 7 neutrophils 94, lymphocytes 2. Chest x-ray shows worsening opacification of left hemithorax with shift to the left. Emergency Department Course and Treatment: Patient had an IV placed. He was given Zofran IV and morphine IV. He is resting comfortably. Treatment Plan: Patient was discussed with Dr. Leigh. Given the onset of this it is likely that this is from the drainage of his pleural effusion. He will be discharged instructions to continue his Percocet for pain. He reports he has not had a bowel movement for 3 days. He is given a bottle of magnesium citrate. Instructed follow-up Dr. Leigh as previously scheduled. Return to the emergency department for any worsening symptoms. Disposition: To home in improved and stable condition. Impression: 1. Left pleural effusion. 2. Occlusion of left main stem bronchus. 3. Non-small cell lung cancer on chemotherapy. This note was generated with Dragon dictation software. It may contain incorrect words, spelling, and punctuation that were not noted in review of the chart prior to signing ED Disposition - Plan for ED Patient: Disposition: Home or Assisted Living Chief Complaint: Chest Pain Instructions: ED Effusion Pleural Referrals: Nino Leigh MD [NON-STAFF] - Keep Alexa appointment What to do if you have Problems For any increased pain, shortness of breath, bleeding, nausea or vomiting, chest pain, or any unexpected problems, contact your Primary Care Provider. Call [facility] ([phone]) or report to the closest Emergency Room. Call 911 if necessary. 11/21/17 0686 <Electronically signed by Arya García MD> Date Arya García MD Cosigner Signature (If Indicated): Date CC: ROYCE Sarmiento BASIC METABOLIC Collected: 11/21/2017 Status: F Source: [facility]IANNA PROFILE ([facility]) 6:00 PM [facility] REPOSITORY TYPE CODE TESTS RESULT OUT OF RANGE REFERENCE UNITS LAB L501.0100 74-106 mg/dL High GLU 127 Result Comment: Fasting Glucose result greater than or equal to 126 mg/dL suggests DIABETES MELLITUS per A.D.A. criteria. Please note revised GLUCOSE reference range effective 2017. LAB L501.1000 7-18 mg/dL High BUN 47 LAB L501.1100 0.70-1.30 mg/dL High CREAT,SERUM 1.34 Result Comment: The validity of the calculated GFR AND GFRAA in patients over 70 years has not been determined. Clinical correlation is essential. LAB L501.1110 >60 mL/min Low EST GFR 57 Result Comment: Non- GFR Calc LAB L501.1115 >60 mL/min Normal EST GFR - AA 70 Result Comment: GFR Calc LAB L501.1255 ml/min Normal Estimated CRCL 48.28 LAB L501.1300 10-20 RATIO High BUN/CRE 35.1 LAB L501.2200 8.5-10 mg/dL Normal .1 CA 9.8 LAB L501.5300 136-14 mmol/L Normal 5 NA 137 LAB L501.5600 3.5-5. mmol/L Normal 1 K 4.3 LAB L501.5900 98-107 mmol/L Low CL 95 LAB L501.6100 21.0-3 mmol/L High 2.0 CO2 33.0 LAB L501.6200 5-15 Normal GAP 9 Performed By: #### L500.2500, L501.4010 #### [facility] [address] [facility] [place], [address] TROPONIN-I Collected: 11/21/2017 Status: F Source: [place] 6:00 PM [facility] REPOSITORY TYPE CODE TESTS RESULT OUT OF RANGE REFERENCE UNITS LAB L501.4010 <0.045 ng/mL Normal < 0.015 TROPONIN-I Result Comment: TROPONIN-I EXPECTED VALUES <0.045 Negative 0.045 - 0.590 Consistent with Cardiac Damage > OR = 0.600 Critical Value Not every elevated troponin is indicative of PR. These values should be used with clinical judgement in examining the patient's clinical picture for diagnosis. To establish a diagnosis of PR versus myocardial injury, there must be a demonstrated rise and/or fall in the troponin values, in addition to ischemic symptoms, EKG changes, new regional wall motion abnormality, and/or angiographical evidence. PLEASE NOTE: REFERENCE RANGES EDITED 17 Performed By: #### L500.2500, L501.4010 #### [facility] [address] [facility] [place], [address] CBC W/DIFF, AUTOMATED Collected: 11/21/2017 Status: F Source: [place] 6:00 PM [facility] REPOSITORY TYPE CODE TESTS RESULT OUT OF RANGE REFERENCE UNITS LAB L100.1000 4.4-11.0 K/mm3 High WBC 13.9 LAB L100.1200 4.6-6.2 M/mm3 Low RBC 3.14 LAB L100.1300 13.0-16.5 g/dl Low HGB 8.9 LAB L100.1400 40-54 % Low HCT 29.0 LAB L100.1500 80-94 fL Normal MCV 92.4 LAB L100.1600 27.0-32.0 pg Normal MCH 28.3 LAB L100.1700 32-36 g/gl Low MCHC 30.7 LAB L100.1810 11.6-14.6 % High RDW CV 16.3 LAB L100.1820 35.1-43.9 fl High RDW SD 53.9 LAB L100.1900 150-450 K/mm3 High PLT 506 LAB L100.2000 6.2-12.0 fl Normal MPV 9.1 LAB L100.2100 47-70 % High NEUT% 93.8 LAB L100.2200 19-41 % Low LY% 1.5 LAB L100.2300 0-10 % Normal MONO% 4.4 LAB L100.2400 0-5 % Normal EO% 0.0 LAB L100.2500 0-1 % Normal BASO% 0.0 LAB L100.2550 0.0-0.9 % Normal IM GRAN % 0.300 Result Comment: IG% - Immature Granulocytes (promyelocytes, myelocytes and metamyelocytes) > 1% indicates that a LEFT SHIFT is Present. LAB L100.2620 2.0-7.7 X10 3/uL High Absolute Neut 13.1 LAB L100.2720 0.83-4.51 X10 3/ul Low Absolute Lymph 0.21 LAB L100.4500 Normal SMEAR COMMENT Result Comment: DIFF OK, LYMPHOPENIA NOTED Performed By: #### L100.0100 #### [facility] [address] [facility] [place], [address] CHEST 1 VIEW Observed: 11/21/2017 Status: F Source: GIANNA (PORTABLE) 5:49 PM [facility] REPOSITORY [facility] Imaging Services [address] [place] [address] Chest 1 View (Portable) MR#: [id number] Acct: [id number] Name: TOMY MUNSON Rep #: [id number] : 1955 M 61 From: Humberto Love MD PCP: ROYCE Montero Status: REG ER Study: Chest 1 View (Portable) Date of Exam: 11/21/17 Exam# [id number] Ordering Dr: Arya García MD STUDY: X-RAY CHEST REASON FOR EXAM: Male, 61 years old. Chest pain. Lung cancer. TECHNIQUE: Single AP portable view of the chest. COMPARISON: 11/12/2017. FINDINGS: Complete opacification of the left hemithorax and shift of mediastinum to the left. Worsening opacification since previous study. Stable appearance of a left Mediport catheter and left indwelling pleural drain. Hyperexpansion of the right lung which is clear. Normal size heart. Normal mediastinum and tashia. Normal visualized pulmonary arteries. Normal visualized aortic arch and descending thoracic aorta. Normal visualized thoracic spine. Normal visualized ribs, clavicles, and shoulders. There is no demonstrated abnormality of the visualized soft tissue structures of the upper abdomen. RAD/Chest 1 View (Portable) IMPRESSION: Worsening, complete opacification of the left hemithorax. Electronically Signed: Humberto Love MD at 18:17 EDT , Service support , CC: ROYCE Sarmiento; Arya García MD [employer] Driver: Signed CBC W/DIFF, AUTOMATED Collected: 11/20/2017 Status: F Source: [place] 8:44 AM [facility] REPOSITORY TYPE CODE TESTS RESULT OUT OF RANGE REFERENCE UNITS LAB L100.1000 4.4-11.0 K/mm3 High WBC 13.5 LAB L100.1200 4.6-6.2 M/mm3 Low RBC 3.00 LAB L100.1300 13.0-16.5 g/dl Low HGB 8.7 LAB L100.1400 40-54 % Low HCT 28.3 LAB L100.1500 80-94 fL High MCV 94.3 LAB L100.1600 27.0-32.0 pg Normal MCH 29.0 LAB L100.1700 32-36 g/gl Low MCHC 30.7 LAB L100.1810 11.6-14.6 % High RDW CV 15.9 LAB L100.1820 35.1-43.9 fl High RDW SD 51.4 LAB L100.1900 150-450 K/mm3 High PLT 528 LAB L100.2000 6.2-12.0 fl Normal MPV 8.5 LAB L100.2100 47-70 % High NEUT% 93.2 LAB L100.2200 19-41 % Low LY% 1.8 LAB L100.2300 0-10 % Normal MONO% 4.4 LAB L100.2400 0-5 % Normal EO% 0.1 LAB L100.2500 0-1 % Normal BASO% 0.0 LAB L100.2550 0.0-0.9 % Normal IM GRAN % 0.500 Result Comment: IG% - Immature Granulocytes (promyelocytes, myelocytes and metamyelocytes) > 1% indicates that a LEFT SHIFT is Present. LAB L100.2620 2.0-7.7 X10 3/uL High Absolute Neut 12.6 LAB L100.2720 0.83-4.51 X10 3/ul Low Absolute Lymph 0.24 LAB L100.4500 Normal SMEAR COMMENT SCANNED Performed By: #### L100.0100 #### [facility] [address] [place], [address] COMPREHENSIVE METABOLIC Collected: 11/20/2017 Status: F Source: GIANNA [facility] 8:44 AM [facility] REPOSITORY Order Comment: Reason for Laboratory Test Chemotherapy TYPE CODE TESTS RESULT OUT OF RANGE REFERENCE UNITS LAB L501.0100 74-106 mg/dL High GLU 122 Result Comment: Fasting Glucose result from 100 to 125 mg/dL suggests IMPAIRED HOMEOSTASIS per A.D.A. criteria. Please note revised GLUCOSE reference range effective 2017. LAB L501.1000 7-18 mg/dL High BUN 33 LAB L501.1100 0.70-1.30 mg/dL Normal CREAT,SERUM 0.94 Result Comment: The validity of the calculated GFR AND GFRAA in patients over 70 years has not been determined. Clinical correlation is essential. LAB L501.1110 >60 mL/min Normal EST GFR 86 Result Comment: Non- GFR Calc LAB L501.1115 >60 mL/min Normal EST GFR - AA 105 Result Comment: GFR Calc LAB L501.1255 ml/min Normal Estimated CRCL 69.68 LAB L501.1300 10-20 RATIO High BUN/CRE 35.1 LAB L501.1500 6.4-8. g/dL Normal 2 T PROT 6.9 LAB L501.1800 3.2-5. g/dL Low 0 ALB 2.6 LAB L501.1950 2.2-4. g/dL High 2 GLOB 4.3 LAB L501.2000 0.9-2. RATIO Low 4 A/G 0.6 LAB L501.2200 8.5-10 mg/dL Normal .1 CA 10.1 LAB L501.4100 15-37 U/L Normal AST 15 LAB L501.4305 45-117 U/L Normal ALK P 61 LAB L501.4405 16-61 U/L Normal ALT 28 LAB L501.4600 0.20-1 mg/dL Normal .00 T BILI 0.20 LAB L501.5300 136-14 mmol/L Normal 5 NA 138 LAB L501.5600 3.5-5. mmol/L Normal 1 K 4.7 LAB L501.5900 98-107 mmol/L Low CL 96 LAB L501.6100 21.0-3 mmol/L High 2.0 CO2 35.0 LAB L501.6200 5-15 Normal GAP 7 Performed By: #### L500.4050, L501.5200 #### [facility] [address] [place], [place], [id number] MAGNESIUM Collected: 11/20/2017 Status: F Source: GIANNA 8:44 AM [facility] REPOSITORY Order Comment: Reason for Laboratory Test Chemotherapy TYPE CODE TESTS RESULT OUT OF RANGE REFERENCE UNITS LAB L501.5200 1.6-2.6 mg/dL Normal MG 2.0 Performed By: #### L500.4050, L501.5200 #### [facility] [address] [place], [address] CREATININE FINGERSTICK Collected: 11/18/2017 Status: F Source: [place] 9:30 AM [facility] REPOSITORY TYPE CODE TESTS RESULT OUT OF RANGE REFERENCE UNITS LAB L9100.0210 0.70-1.30 mg/dL Low CREATININE WB < 0.6 LAB L9100.0220 >60 mL/min EGFR WB Normal > 60.0000 Performed By: #### L9100.0200 #### [facility] Point of Care [address] [place] [address] ONCOLOGY VISIT REPORT Observed: 11/17/2017 Status: F Source: [place] 4:27 PM [facility] REPOSITORY [facility] [address] [place] [address] OFFICE VISIT Date of Service: 11/17/17 1549 MR#: [id number] Acct: [id number] Name: TOMY MUNSON Rep #: [id number] : 1955 From: Nino Leigh MD Age/Sex: 61/M Location: OMD Status: Signed Subjective - Date of Service Date of Service:: 11/17/17 - Chief Complaint F/u for NSCLC management. - History of Present Illness Mr. 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 He was treated with concurrent chemotherapy and Radiation. He received 3 cycles of Cisplatin 100mg/m2 from 07/04/2015-08/09/2015. He had a PET/CT done on 11/30/2015 which showed no hypermetabolic activity. PET/CT on 09/30/2016 demonstrated hypermetabolic activity within the left lower lobe and at the level of the laryngeal structures. Underwent biopsies of larynx on 11/15/16 under the care of Dr. Ascencio, pathology of which were negative. Had CT guided bx of LLL nodule on 01/02/[address] scan of chest on 09/16/2017 showed increasing Left lower lobe mass and new Left hilar mass. He was referred for EBUS + biopsy, it was done on 09/26/2017 and showed squamous cell cancer. MRI brain done on 10/14/2017 was negative for brain metastases. PET/CT on 10/16/2017 shows new hypermetabolic activity in left hemithorax with activity in precarinal area mediastinum, left perihilar area and pleural effusion. He had increase in Pleural fluid, thoracentesis showed no malignant cells. Pleurx cath was placed. He was transferred to [facility] for bronchial stenting but could not be done. He comes in for follow up. - Past Medical/Social History Past Medical History Past Medical History: Anemia Other Past Medical History: Hyponatremia Hypothyroidism Dysphagia Hypernatremia Lymphadenitis Measles Mumps Chicken Pox Other Cancer History: Laryngeal Past Surgical History Surgical: Hernia repair Other Surgical History: Left Wrist surgery Peg Tube Family History Paternal Past Medical History: Heart disease Maternal Past Medical History: Unknown Social History Social History: No changes Smoking Status Former smoker Review of Systems Constitutional:: Reports: Fatigue, Pain - retrosternal area.. Denies: Fever, Sweats Cardiovascular:: Denies: Palpitations, Dyspnea on exertion, Orthopnea, PND, Shortness of breath Respiratory: Denies: Cough, Hemoptysis, Shortness of Breath, Wheezing Gastrointestinal:: Denies: Abdominal pain, Nausea, Vomiting, Diarrhea, Constipation, Hematochezia Genitourinary: Denies: Dysuria, Hematuria, 15, Flank pain Musculoskeletal:: Denies: Back pain, Myalgia, Arthralgia Vital Signs Height 5 ft 8 in Weight: 59.421 kg Weight in Pounds 131.0 lbs BMI 20.7 Pulse Ox 96 - Physical Exam General: Alert, Oriented x3, No apparent distress HEENT: Atraumatic, PERRLA, EOMI, Normocephalic Oropharynx:: - - edentulous. Neck:: Supple, Trachea midline. Negative for: JVD, bilateral Cardiac:: Regular rate, Regular rhythm, Normal S1, Normal S2. Negative for: Murmur Lungs: Diminished - L hemithorax., - - + L Pleurx cath. Neurological: Neuro grossly intact Skin:: Negative for: Lesions, Rash, Petechiae, Ecchymosis Psychiatric:: Appropriate affect, Euthymic Lymphatics:: Negative for: Cervical lymphadenopathy, Supraclavicular lymphadenopathy, Axillary lymphadenopathy Assessment and Plan Non small cell lung cancer, squamous cell type, T4 N2 M0-stage IIIB as Pleural fluid is negative for malignant cells. Compression of Left main bronchus and Pulmonary vessels. Pleural effusion s/p Pleurx catheter. History of Laryngeal CA stage TAWNY, S/P Chemoradiation therapy. Discussed treatment with combined chemotherapy and Radiation, risks, benefits and side effects again. Suggested starting chemotherapy with Taxol and Carboplatin and then RT to open compressed bronchus. He agrees to start therapy. Plan is to start Taxol + Carboplatin on 11/20/2017. Renew Percocet, use Miralax for constipation prophylaxis, request Hospital bed. Return to clinic 11/27/2017 Medications: Prescriptions This Visit Medication Instructions Recorded Ondansetron [Zofran Odt] 4 mg PO Q8H PRN PRN #30 tab 11/17/17 Primary Care Provider: ROYCE Montero Referring Provider: - Problem List (1) History of laryngeal cancer Status: Chronic (2) Non-small cell carcinoma of left lung, stage 3 Status: Chronic Code Visit Office Visits / Consults: [id number] OV L4 Est 11/17/17 1627 <Electronically signed by Nino Leigh MD> Date Nino Leigh MD Cosigner Signature: Date (if applicable) CC: ONCOLOGY FOLLOW-UP Observed: 11/17/2017 Status: F Source: [place] VISIT 3:03 PM [facility] [place]ORY [place] [facility] Medical Records Department [address] [facility] [place] [address] Oncology Follow-Up Visit 11/17/17 1430 MR#: [id number] Acct: [id number] Name: TOMY MUNSON Rep #: [id number] : 1955 61 From: Vish Crespo DO PCP: ROYCE Montero Status: REG RCR Y Location: [facility] Date of Service: 11/17/17 Diagnosis: Tomy Munson is a 61-year-old male previously treated for 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 Unfortunately due to treatment delays the lung cancer appears to have progressed and caused complete collapse of the left lung romeo and interventional pulmonology was unable to place stent. History of Present Illness: 06/19/2015: Patient underwent direct laryngoscopy with biopsy of the supraglottic mass which demonstrated invasive moderately differentiated squamous cell carcinoma (p16 negative). 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 From 07/04/15- 08/25/15 he received 7104 cGy in 36 fractions. Chemotherapy was given from 07/04/2015 through 08/09/2015 and consisted of 3 cycles of 100 mg/m cisplatin. 12/23/2016: CT chest with contrast was performed which demonstrated a 1.5 x 1.4 cm noncalcified nodule in the peripheral aspect of the superior segment of the left lower lobe as well as a 5.3 mm noncalcified nodule in the posterior medial segment of the left lower lobe. 01/02/2017: Patient underwent CT-guided biopsy of the left lower lung mass which demonstrated evidence for pneumocyte to hyperplasia with mild atypia but no evidence of malignancy in the submitted specimen. 04/07/2017: CT chest with contrast was performed which showed that the previously seen spiculated mass in left lower lobe had enlarged and now measures 2.04 x 1.72 cm, there is a slightly enlarged small indistinct nodular density in the right upper lobe medially posterior to the trachea which measures 0.46 cm and on the previous exam measured 0.3 cm, there is a lymph node anterior to the right mainstem bronchus which on short axis measures 0.95 cm and previously was 0.65 cm, enlarged left hilar lymph node measuring 1.1 cm is new. 07/07/2017: CT chest with contrast was performed which demonstrated a 2.4 x 1.2 cm lobulated irregular nodular density in the peripheral aspect of the left lower lobe which has increased in size from the previous study, a prominent left hilar lymph node is measured at 2.2 cm. 09/16/2017: CT chest with contrast was performed and demonstrated that the left lower lobe nodular density measuring 3.5 x 2.5 cm and previously measured 2.4 x 1.2 cm, there is a new left infrahilar mass measuring about 4.2 by 3.4 cm resulting in complete occlusion of the right lower lobe bronchus with extension into the segmental bronchi of the right lower lobe. 09/26/2017: Bronchoscopy with EBUS was performed. There was noted to be a large circumferential endobronchial lesion noted at the bifurcation of the left upper and left lower lobes and this lesion appeared to nearly completely obstructed orifice of the left lower lobe takeoff. On ultrasound this lesion measured at least 3.5 x 4.5 cm and several biopsies were obtained. Pathology demonstrated fragment of necrotic material with atypical squamous cells suspicious for carcinoma (CK7 weakly positive, CK20/TTF1/p16 all negative). 10/14/2017: MRI brain was completed which showed no evidence for intracranial metastatic disease. 10/16/2017: PET scan was performed which showed evidence for persistent and newly defined increased glucose concentration manifest in the left mid lower posterior, posterior lateral hemithorax pulmonary parenchyma with a calculated SUV of 12.7, newly defined increased glucose concentration manifest in the precarinal posterior mediastinum and left thoracic perihilum. There is interim metabolic resolution of the previously identified left lower lobe pulmonary parenchymal as well as laryngeal structure hypermetabolic abnormalities. 11/07/2017: Patient underwent ultrasound-guided thoracentesis and 530 mL of blood-tinged fluid was drained, there were no malignant cells identified in the retreat fluid. 11/10/2017: Patient was admitted after returning to the hospital with increasing shortness of breath over the weekend. 11/11/2017: Left tunneled Pleurx catheter was placed 11/12/2017: CT chest without contrast was performed which demonstrated progressive opacification of the left hemithorax with only a small amount of aeration within the left upper lobe, ill-defined hilar density consistent with the previously identified mass/adenopathy, volume loss within the left chest with mediastinal shift towards the left, small nodular density along the right side of the trachea which may represent adherent debris or mass, complete occlusion of the left mainstem bronchus, small left pleural effusion with pleural catheter in place. 11/13/2017: Due to the need for interventional pulmonology consultation the patient was transferred to [facility] to attempt bronchoscopy and stent placement. Mucous plugging and tumor were noted in the left mainstem bronchus, an endobronchial stent was placed but then removed due to suboptimal position and therefore he was sent back to the ICU and extubated and then discharged on 11/14/2017. Radiation Treatment History: 1) Patient was diagnosed with stage TAWNY (T3 N2c M0) supraglottic laryngeal squamous cell carcinoma and was treated with concurrent chemoradiation. From 07/04/15-08/25/15 he received 7104 cGy in 36 fractions. Chemotherapy was given from 07/04/2015 through 08/09/2015 and consisted of 3 cycles of 100 mg/m cisplatin. No pacemaker Interval History: Patient returns after attempted stent placement. He reports some increased pain that is relatively mild in the mid chest otherwise denies hemoptysis or other new complaints from last week. I have reviewed the medical, surgical, and other pertinent history in details and have updated medication and allergy information in the electronic medical record. Review of Systems: A 12-point review of systems was completed and was negative except for what is noted in the HPI/Interval History and by the nurse. Imaging: As per HPI Assessment: Tomy Munson is a 61-year-old male previously treated for 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 Unfortunately due to treatment delays the lung cancer appears to have progressed and caused complete collapse of the left lung romeo and interventional pulmonology was unable to place stent. Plan: I had a detailed discussion with the patient about treatment options for locally advanced non-small cell lung cancer. I discussed that unfortunately they were unable to get the mainstem bronchus open to reexpand his left lung romeo. However, I do believe that an option is to complete chemoradiation therapy utilizing the PET scan and best judgment to define gross disease but try to minimize dose to the lung. Given the very large tumor with associated large adenopathy in the hilum causing lung collapse as well as reduced KPS at baseline I think it would be reasonable to have the goals of aggressive palliation utilizing 10-15 fractions given with concurrent carbo/taxol. I reviewed the logistics of radiation therapy including CT simulation, treatment planning, and daily fractionated radiation therapy with weekly physician visits. I discussed the potential acute and chronic toxicities from lung radiation and this would include but is not limited to fatigue, skin irritation, pneumonitis/cough, hemoptysis given mainstem bronchus involvement, pericarditis/chest pain, esophagitis, nausea/weight loss, reduced blood counts, risk of esophageal stenosis, lung fibrosis/worsening lung function, nerve damage including brachial plexus or spinal cord, secondary cancer formation. Following our discussion the patient asked several questions which were answered and informed consent was obtained. He is planning to return tomorrow for CT simulation. He will call with any questions or concerns in the interim. Vish Crespo DO, MS [employer], Department of Radiation Oncology [facility] 11/17/17 2524 <Electronically signed by Vish Crespo DO> Date Vish Crespo DO CC: Signed PROGRESS Observed: 11/17/2017 Status: COMPLETED Source: [place] 7:[address] [facility] [place] [place] REPOSITORY HNO ID: [id number] Author: Ron Padron Service: (none) Author Type: Physician Type: Progress Notes Filed: 11/17/2017 7:20 AM Note Text: OPERATIVE NOTATION FOR [facility] SURGICAL PROCEDURE. November 11, 2017 Tomy Munson 1955 [id number] male PROCEDURE: 23850 - Insertion of Tunnelled Pleural Catheter - Left and 67333 - Ultrasound Guidance for Needle Placement SURGEON: Boni Padron M.D. FACS SPECIAL INSPECTOR: None DEPT: WQ PROVIDER: J76=UglondtRon Padron MD POS: 4M6=[id number] DIAGNOSIS: (C34.92) Malignant neoplasm of left lung, unspecified part of lung (HCC) (primary encounter diagnosis) (J91.0) Malignant pleural effusion ASA CLASS: 3 - Severe FINDINGS: COMPLICATIONS: None PMHx - PAST MEDICAL HISTORY Diagnosis Date - Anemia - Dysphagia - Hyponatremia - Malnutrition (HCC) - Squamous cell carcinoma head and neck - Xerostomia COMORBIDITIES - Smoking/Tobacco, Cancer Metastasis and Current Cancer Therapy Post Op Occurrences - None Wound Classification - Clean Operative note dictated in the [facility] dictation system. Ron Padron MD 12 LEAD ELECTROCARDIOGRAM Observed: 11/14/2017 Status: F Source: [place] 9:48 AM [facility] REPOSITORY [facility] Cardiovascular Services [address] [place] [address] 12 Lead EKG 11/11/17 0552 MR#: [id number] Acct: [id number] Name: TOMY MUNSON Rep #: [id number] : 1955 61 From: Neal Jaimes MD Attending Dr: Nadege Menon Status: DIS IN Ordering Dr: Nadege Menon MD Date: 11/11/17 Location: [facility] Sex: M C Admitted: 11/10/17 Test Reason : AM EKG Blood Pressure : / mmHG Vent. Rate : 103 BPM Atrial Rate : 103 BPM P-R Int : 120 ms QRS Dur : 080 ms QT Int : 312 ms P-R-T Axes : 078 065 054 degrees QTc Int : 408 ms Sinus tachycardia Otherwise normal ECG When compared with ECG of 10-NOV-2017 14:19, MANUAL COMPARISON REQUIRED, DATA IS UNCONFIRMED Confirmed by FIONA FERNANDEZ, NEAL ([id number]), editor in chief newspaper WILLIAM CARLSON ([id number]) on 11/14/2017 9:48:11 AM Referred By: ISIDRO Confirmed By:NEAL JAIMES MD 11/14/17 0948 Date Neal Jaimes MD CC: ROYCE Sarmiento; Nadege Menon Signed 12 LEAD ELECTROCARDIOGRAM Observed: 11/14/2017 Status: F Source: [place] 9:46 AM [facility] REPOSITORY [facility] Cardiovascular Services [address] [place] [address] 12 Lead EKG 11/12/17 0339 MR#: [id number] Acct: [id number] Name: TOMY MUNSON Rep #: [id number] : 1955 61 From: Neal Jaimes MD Attending Dr: Nadege Menon Status: DIS IN Ordering Dr: Kayode Arreaga MD Date: 11/12/17 Location: [facility] Sex: M C Admitted: 11/10/17 Test Reason : RHY CHANGE Blood Pressure : / mmHG Vent. Rate : 072 BPM Atrial Rate : 072 BPM P-R Int : 136 ms QRS Dur : 086 ms QT Int : 370 ms P-R-T Axes : 072 089 066 degrees QTc Int : 405 ms Normal sinus rhythm Normal ECG When compared with ECG of 11-NOV-2017 13:22, MANUAL COMPARISON REQUIRED, DATA IS UNCONFIRMED Confirmed by NEAL JAIMES MD ([id number]), editor in chief newspaper [employer]IAM CARLSON ([id number]) on 11/14/2017 9:45:59 AM Referred By: ISIDRO Confirmed By:NEAL JAIMES MD 11/14/17 0946 Date Neal Jaimes MD CC: ROYCE Sarmiento; Nadege Menon; Kayode Arreaga MD Signed 12 LEAD ELECTROCARDIOGRAM Observed: 11/14/2017 Status: F Source: [place] 9:46 AM [facility] REPOSITORY [facility] Cardiovascular Services [address] [place] [address] 12 Lead EKG 11/11/17 1322 MR#: [id number] Acct: [id number] Name: MARNITOMY Tai Rep #: [id number] : 1955 61 From: Neal Jaimes MD Attending Dr: Nadege Menon Status: DIS IN Ordering Dr: Nadege Menon MD Date: 11/11/17 Location: [facility] Sex: M C Admitted: 11/10/17 Test Reason : RHYTHM Blood Pressure : / mmHG Vent. Rate : 091 BPM Atrial Rate : 340 BPM P-R Int : 000 ms QRS Dur : 102 ms QT Int : 336 ms P-R-T Axes : -67 069 055 degrees QTc Int : 413 ms Atrial flutter with variable A-V block Abnormal ECG When compared with ECG of 11-NOV-2017 08:40, MANUAL COMPARISON REQUIRED, DATA IS UNCONFIRMED Confirmed by NEAL JAIMES MD ([id number]), editor in chief newspaper WILLIAM CARLSON ([id number]) on 11/14/2017 9:46:38 AM Referred By: KEVIN Confirmed By:NEAL JAIMES MD 11/14/17 0946 Date Neal Jaimes MD CC: ROYCE Sarmiento; Nadege Menon Signed CR CHEST PORTABLE Observed: 11/14/2017 Status: F Source: [employer] 8:45 AM SYSTEM REPOSITORY Patient Name: TOMY MUNSON Diagnostic Radiology Exam Date/Time 11/14/2017 05:24:28 EDT Exam CR Chest Portable Ordering Physician Christiano [facility] Accession Number [id number] CPT4 Codes 87934 () Reason For Exam dyspnea Report PORTABLE CHEST: INDICATION: Dyspnea COMPARISON: 11/13/2017 Obtained at 0507 hours. A single portable AP radiograph of the chest was obtained. The heart is normal in size. The mediastinal silhouette is normal. There is left-sided volume loss and opacification of the left hemithorax, likely reflecting effusion and atelectasis. The aeration of the left upper lung field has improved. A left-sided chest tube is again noted. There is biapical pleural thickening. The osseous structures are unremarkable. A left-sided Mediport catheter is present. The tip of the catheter overlies the superior vena cava. IMPRESSION: There has been improved aeration of the left upper lung field on the significant opacification of the left mid and lower lung field persists. There is left-sided volume loss with shift of the mediastinum to the left. Report Dictated on Final Dictated: 11/14/2017 8:45 am Dictating Physician: DO BOURGEOIS ALFRED Signed Date and Time: 11/14/2017 8:48 am Signed by: DO BOURGEOIS ALFRED Transcribed Date and Time: 11/14/2017 8:45 HEMOGRAM W/ AUTODIFF Collected: 11/14/2017 Status: F Source: [employer] 4:15 AM SYSTEM REPOSITORY TYPE CODE TESTS RESULT OUT OF REFERENCE UNITS RANGE LAB IWBC 3.6-10.7 10*3/uL WBC Normal 10.1 LAB RBC 4.40-5.90 10*6/uL Low RBC 3.13 LAB HGB 13.0-18.0 g/dL Low Hemoglobin 9.3 LAB HCT 40.0-52.0 % Low Hematocrit 28.4 LAB MCV 80.0-98.0 fL MCV Normal 90.8 LAB MCH 26.0-34.0 pg MCH Normal 29.6 LAB MCHC 32.0-36.0 % MCHC Normal 32.6 LAB RDW 11.5-14.5 % RDW High 16.4 LAB PLT 140-440 10*3/uL Platelet High 518 LAB MPV 7.4-10.4 fL Low MPV 7.3 LAB GRAN% 40.0-80.0 % Granulocytes High 95.4 LAB LYMP% 20.0-40.0 % Low Lymphocytes 1.7 LAB MONO% 2.0-10.0 % Monocytes Normal 2.8 LAB EOS% 1.0-6.0 % Low Eosinophils 0.1 LAB BAS% 0.0-2.0 % Basophils Normal 0.0 LAB ANC 1.8-7.0 10*3/uL Abs High Neutrophile Cnt 9.6 LAB ALC 1.0-4.3 10*3/uL Low Abs Lymph Cnt 0.2 LAB AMC 0.0-0.8 10*3/uL Abs Monocyte Normal Cnt 0.3 LAB AEC 0.0-0.5 10*3/uL Abs Eosin Cnt Normal 0.0 LAB ABC 0.0-0.2 10*3/uL Abs Baso Cnt Normal 0.0 Performed By: #### HEMDF, MG3, BMP3, PHOS3 #### [facility] [address] [place] [id number] MAGNESIUM Collected: 11/14/2017 Status: F Source: [employer] 4:15 AM SYSTEM REPOSITORY TYPE CODE TESTS RESULT OUT OF RANGE REFERENCE UNITS LAB MG3 1.6-2.3 mg/dL Normal Magnesium 2.1 Performed By: #### HEMDF, MG3, BMP3, PHOS3 #### [facility] [address] [place] [id number] BASIC METABOLIC PANEL Collected: 11/14/2017 Status: F Source: [employer] 4:15 AM SYSTEM REPOSITORY TYPE CODE TESTS RESULT OUT OF RANGE REFERENCE UNITS LAB NA3 137-145 mmol/L Sodium Normal 137 LAB K3 3.5-5.1 mmol/L Normal Potassium 4.9 LAB CL3 98-107 mmol/L Chloride Normal 98 LAB CO23 22-30 mmol/L High Carbon Dioxide 32 LAB ANIN3 NA Anion Gap 8 LAB GLUC3 70-100 mg/dL High Glucose 168 LAB BUN3 7-20 mg/dL High Urea Nitrogen 29 LAB CRET3 0.52-1.25 mg/dL Normal Creatinine 0.82 LAB GF3BR >60 mL/min eGFR > 60.0 LAB GF3WR >60 mL/min eGFR OTHER > 60.0 Result Comment: Source- MDRD equation with creatinine calibration to IDMS(NKDEP) eGFR not recommended for drug dose adjustment LAB CA3 8.4-10.4 mg/dL Normal Calcium 9.9 Performed By: #### HEMDF, MG3, BMP3, PHOS3 #### [facility] [address] [place] [address] PHOSPHORUS Collected: 11/14/2017 Status: F Source: [employer] 4:15 AM SYSTEM REPOSITORY TYPE CODE TESTS RESULT OUT OF RANGE REFERENCE UNITS LAB PHOS3 2.5-4.5 mg/dL Normal Phosphorus 3.4 Performed By: #### HEMDF, MG3, BMP3, PHOS3 #### [facility] [address] [place] [address] CR CHEST 1 VIEW Observed: 11/13/2017 Status: F Source: [employer] FRONTAL 3:58 PM SYSTEM REPOSITORY Patient Name: TOMY MUNSON Diagnostic Radiology Exam Date/Time 11/13/2017 15:14:38 EDT Exam CR Chest 1 View Frontal Ordering Physician MD ANA, ELY Lowery Accession Number [id number] CPT4 Codes 14335 () Reason For Exam bronch Report PORTABLE CHEST X-RAY CLINICAL INDICATION: Status post bronchoscopy A portable frontal view of the chest was obtained. COMPARISON: 11/13/2017 FINDINGS: The heart size is indeterminate. Left-sided Mediport catheter is again noted. A very large left-sided pleural effusion is again noted. There is a small amount of aerated lung within the left upper lobe, new when compared to the study from earlier in the day. Left-sided chest tube is unchanged in position. The right lung is clear. There is no evidence of pneumothorax. Bony structures are unremarkable. IMPRESSION: Large left pleural effusion. There is a small amount of aerated lung within the left upper lobe, improved when compared to the prior examination from earlier the day. Report Dictated on Final Dictated: 11/13/2017 3:58 pm Dictating Physician: JORGE ROA Signed Date and Time: 11/13/2017 4:00 pm Signed by: JORGE ROA Transcribed Date and Time: 11/13/2017 3:58 DISCHARGE SUMMARY Observed: 11/13/2017 Status: F Source: [place] 3:34 PM [facility] REPOSITORY [facility] Medical Records Department [address] [place] [address] Discharge Summary 11/12/17 1228 MR#: [id number] Acct: [id number] Name: TOMY MUNSON Rep #: [id number] : 1955 61 From: Nadege Menon MD PCP: ROYCE Montero Status: DIS IN Y Location: [place] [address] Discharge Date and Diagnosis Date of Admission: 11/10/17 Date of Discharge: 11/12/17 - Primary Discharge Diagnosis Active and Suspected Problems (Last Reviewed 11/06/17 @ 15:29 by Lotus Lemos, MARIO) #1 worsening left-sided pleural effusion. #2 newly diagnosed paroxysmal A. fib/flutter with RVR. #3 recent diagnosis of non-small cell lung cancer. #4 occlusion of the left main bronchus. - Secondary Discharge Diagnosis Chronic Problems (Last Reviewed 11/06/17 @ 15:29 by Lotus Lemos, RN) Chronic anemia (Chronic) Dysphagia (Chronic) Non-small cell carcinoma of left lung, stage 3 (Chronic) History of laryngeal cancer (Chronic) Pulmonary nodule, left (Chronic) Tobacco dependence in remission (Chronic) PEG (percutaneous endoscopic gastrostomy) status (Chronic) Hospital Course and Treatment Imaging Results: 11/12/17 05:00 CXR [Chest 1 View (Portable)] [RAD] Urgent 11/12/17 06:54 Chest without Contrast [CT] Urgent Clinical Impression(s) from Imaging Studies Chest X-Ray 11/10/17 09:38 IMPRESSION: Progressive pleural parenchymal changes at the left lung base with volume loss in the left hemithorax. Electronically Signed: Yosef Blevins MD at 10:26 EDT Tel [phone], Service support , Chest X-Ray 11/11/17 11:37 IMPRESSION: New left pleural catheter in place. No pneumothorax. There may be some increasing left upper lobe airspace disease. Electronically Signed: Steve DO Jimmy at 12:19 EDT Tel , Service support , Chest X-Ray 11/12/17 05:00 IMPRESSION: Increasing opacification of the left hemithorax, with evidence of some volume loss. This is likely a combination of atelectasis, consolidation, pleural effusion. Life support tubes and catheters, as detailed above. Electronically Signed: Steve Marquez DO at 8:10 EDT Tel , Service support , Chest CT 11/12/17 06:54 IMPRESSION: Progressive opacification of the left hemithorax with only a small amount of aeration within the left upper lobe. Ill-defined hilar density, consistent with mass/adenopathy. Volume loss within the left chest with mediastinal shift towards the left. Small nodular density along the right side of the trachea may represent adherent debris or a mass. Occlusion of the left mainstem bronchus. Small left pleural effusion with a pleural catheter in place. Electronically Signed: Stevetai Marquez DO at 9:51 EDT Tel , Service support , Dr. Chaudhary, general surgery. Dr. Arreaga, cardiology. Dr. Oliver, pulmonology. Dr. ascencio, ENT. Procedures: 2-D Echocardiogram, EKG, - - Insertion of left Pleurx catheter for left pleural effusion. Summary of Care Provided: The patient is a 61 year old M admitted because of anterior chest pain, left lateral chest pain or shortness of breath and he was found to have increasing left side pleural effusion in context of recent has diagnosis of non-small cell lung cancer. He had recent endoscopic endobronchial ultrasound with biopsies that revealed moderately differentiated non-small cell lung carcinoma in favor of squamous cell carcinoma. He had thoracentesis a few days before admission but he came in back because of worsening shortness of breath. Chest x-ray revealed significantly increasing left-sided pleural effusion. General surgery consulted and he underwent insertion of left Pleurx catheter for drainage of the left pleural effusion. After admission to the hospital, he went into A. fib with RVR, was started on IV Cardizem as well as IV amiodarone drip for rate control. He converted back to sinus rhythm and his rate was controlled. His 2D echocardiogram revealed ejection fraction of 55%, RVSP of 31 and no significant valvular heart disease. Initially and after incision of the left Pleurx catheter, 500 cc of blood-tinged fluid drained and then no more fluid came out. CT scan chest performed and revealed progressive opacification of the left hemithorax and occlusion of the left main bronchus. There was a concern that this new occlusion of the left main bronchus is due to tumor growth. Dr. Oliver spoke with Dr. Oliver Denny and decision was made to transfer the patient to [facility] for intervention regarding the occlusion of the left main bronchus. During this hospital stay, she complained of right ear pain. ENT consulted and stated that this is due to referred otalgia secondary to nonhealing mandible and there is no need for any interventions. Patient transferred to [facility] in a stable medical condition for further management and treatment regarding the complete occlusion of the right main bronchus as well as the left pleural effusion and A. fib with RVR. Home Medications: Medications to take at Discharge Albuterol IH (ProAir) [Proair Hfa] 2 puff INHALATION Q6H PRN 11/10/17 Dexamethasone [Decadron] 1 tablet PO DAILY@0800 11/10/17 Levothyroxine [Synthroid] 1 tablet PO DAILY 11/10/17 Lorazepam [Ativan] 1 tablet PO BID PRN 11/10/17 Oxycodone HCl/Acetaminophen [Percocet 5-325] 1 tablet PO Q6H PRN 11/10/17 Primary Care Physician: Alfred Sarmiento NP-C [Primary Care Provider] - Disposition: Acute care Hospital Minutes spent on discharge:: 36 Patient Condition:: Guarded Medical Necessity - Tobacco Use Smoking Status: Former smoker Tobacco Use: Cigarettes - [id number] history Meaningful Use Info Meaningful Use Diagnoses (Choose all that apply): None applicable Code Visit Inpatient E AND M: 22588 Disch Hosp 11/13/17 1534 <Electronically signed by Nadege Menon MD> Date Nadege Menon MD Cosigner Signature (if applicable): Date CC: CAD ENGINEER-C Alfred Sarmiento; Nitish Oliver MD; Nadege Menon; Ron Padron MD Signed CR CHEST PORTABLE Observed: 11/13/2017 Status: F Source: [employer] 6:25 AM SYSTEM REPOSITORY Patient Name: TOMY MUNSON Diagnostic Radiology Exam Date/Time 11/13/2017 06:21:27 EDT Exam CR Chest Portable Ordering Physician Christiano COX MELISSA Accession Number [id number] CPT4 Codes 76587 () Reason For Exam dyspnea Report Portable chest 11/13/2017: Clinical Information: Dyspnea. Findings: A single AP portable view of the chest was obtained at 619 hours. No prior studies for comparison. A left-sided chest tube and left-sided Oydzhb-b-Koff catheter are present. The trachea, heart and mediastinal structures are shifted to the left. There is complete opacification of the left hemithorax. Whether this is related to prior pneumonectomy or effusion and complete atelectasis is uncertain since no prior studies or prior clinical information is available. The right lung field is clear. Report Dictated on Final Dictated: 11/13/2017 6:25 am Dictating Physician: MD LAUREANO RISA Signed Date and Time: 11/13/2017 6:26 am Signed by: MD LAUREANO RISA Transcribed Date and Time: 11/13/2017 6:25 HEMOGRAM W/ AUTODIFF Collected: 11/13/2017 Status: F Source: [employer] 4:49 AM SYSTEM REPOSITORY TYPE CODE TESTS RESULT OUT OF REFERENCE UNITS RANGE LAB IWBC 3.6-10.7 10*3/uL WBC Normal 8.9 LAB RBC 4.40-5.90 10*6/uL Low RBC 2.86 LAB HGB 13.0-18.0 g/dL Low Hemoglobin 8.7 LAB HCT 40.0-52.0 % Low Hematocrit 26.0 LAB MCV 80.0-98.0 fL MCV Normal 91.0 LAB MCH 26.0-34.0 pg MCH Normal 30.5 LAB MCHC 32.0-36.0 % MCHC Normal 33.5 LAB RDW 11.5-14.5 % RDW High 16.4 LAB PLT 140-440 10*3/uL Platelet High 499 LAB MPV 7.4-10.4 fL Low MPV 6.6 LAB GRAN% 40.0-80.0 % Granulocytes High 81.0 LAB LYMP% 20.0-40.0 % Low Lymphocytes 4.2 LAB MONO% 2.0-10.0 % Monocytes Normal 9.3 LAB EOS% 1.0-6.0 % Eosinophils Normal 5.1 LAB BAS% 0.0-2.0 % Basophils Normal 0.4 LAB ANC 1.8-7.0 10*3/uL Abs High Neutrophile Cnt 7.2 LAB ALC 1.0-4.3 10*3/uL Low Abs Lymph Cnt 0.4 LAB AMC 0.0-0.8 10*3/uL Abs Monocyte Normal Cnt 0.8 LAB AEC 0.0-0.5 10*3/uL Abs Eosin Cnt Normal 0.5 LAB ABC 0.0-0.2 10*3/uL Abs Baso Cnt Normal 0.0 Performed By: #### HEMDF, PT, BMP3, MG3, PHOS3 #### [employer] [facility] [address] [place] [id number] PROTHROMBIN TIME Collected: 11/13/2017 Status: F Source: [employer] [facility] [facility] 4:49 AM SYSTEM REPOSITORY TYPE CODE TESTS RESULT OUT OF REFERENCE UNITS RANGE LAB PROTM 9.0-12.0 s Prothrombin Normal Time 10.3 Result Comment: . LAB INR 0.9-1.1 NA Normal INR 1.0 Result Comment: Recommended Anticoagulant Therapy: SEE BELOW ----- INR of 2.0 - 3.0 : - Prophylaxis of Venous Thrombosis (high-risk surgery) - Treatment of Venous Thrombosis - Treatment of Pulmonary Embolism (Includes tissue heart valves, Acute Myocardial Infarction to prevent systemic embolism, Valvular Heart Disease, and Atrial Fibrillation) ----- INR of 2.5 - 3.5 : - Mechanical Prosthetic Valves (high risk) - If oral anticoagulant therapy is used to prevent Myocardial Infarction Performed By: #### HEMDF, PT, BMP3, MG3, PHOS3 #### [facility] [address] [place] [phone] BASIC METABOLIC PANEL Collected: 11/13/2017 Status: F Source: [employer] [facility] [facility] 4:49 AM SYSTEM REPOSITORY TYPE CODE TESTS RESULT OUT OF RANGE REFERENCE UNITS LAB NA3 137-145 mmol/L Low Sodium 134 LAB K3 3.5-5.1 mmol/L Normal Potassium 4.9 LAB CL3 98-107 mmol/L Low Chloride 96 LAB CO23 22-30 mmol/L High Carbon Dioxide 32 LAB ANIN3 NA Anion Gap 6 LAB GLUC3 70-100 mg/dL High Glucose 107 LAB BUN3 7-20 mg/dL High Urea Nitrogen 24 LAB CRET3 0.52-1.25 mg/dL Normal Creatinine 0.79 LAB GF3BR >60 mL/min eGFR > 60.0 LAB GF3WR >60 mL/min eGFR OTHER > 60.0 Result Comment: Source- MDRD equation with creatinine calibration to IDMS(NKDEP) eGFR not recommended for drug dose adjustment LAB CA3 8.4-10.4 mg/dL Normal Calcium 9.7 Performed By: #### HEMDF, PT, BMP3, MG3, PHOS3 #### [facility] [address] [place] [phone] MAGNESIUM Collected: 11/13/2017 Status: F Source: [employer] [facility] [facility] 4:49 AM SYSTEM REPOSITORY TYPE CODE TESTS RESULT OUT OF RANGE REFERENCE UNITS LAB MG3 1.6-2.3 mg/dL Normal Magnesium 2.0 Performed By: #### HEMDF, PT, BMP3, MG3, PHOS3 #### [facility] [address] [place] [phone] PHOSPHORUS Collected: 11/13/2017 Status: F Source: [employer] [facility] [facility] 4:49 AM SYSTEM REPOSITORY TYPE CODE TESTS RESULT OUT OF REFERENCE UNITS RANGE LAB PHOS3 2.5-4.5 mg/dL High Phosphorus 4.6 Performed By: #### HEMDF, PT, BMP3, MG3, PHOS3 #### [facility] [facility] [address] [place] [address] CHEST WITHOUT Observed: 11/12/2017 Status: F Source: [facility] 6:55 AM [facility] REPOSITORY [facility] Imaging Services [address] [place] [address] Chest without Contrast MR#: [id number] Acct: [id number] Name: TOMY MUNSON Rep #: [id number] : 1955 M 61 From: Steve Marquez DO PCP: ROYCE Montero Status: ADM IN Study: Chest without Contrast Date of Exam: 11/12/17 Exam# [id number] Ordering Dr: Ron Padron MD STUDY: CT CHEST WITHOUT CONTRAST REASON FOR EXAM: Male, 61 years old. Pleural effusion, non-small cell lung cancer, laryngeal cancer RADIATION DOSAGE (If Supplied By Facility): CTDIvol = ( 7.56 ) mGy, DLP = ( 295.48 ) mGycm TECHNIQUE: Transaxial imaging was performed without the administration of intravenous contrast material. Multiplanar coronal and sagittal images were reformatted. Individualized dose optimization techniques were used for this CT. COMPARISON: Chest x-ray 11/12/2017, PET/CT 65 07/17/2017, CT chest 09/16/2017 FINDINGS: A pleural catheter is seen with the tip directed medially near the left lung apex. An implanted central catheter is seen with the tip in the SVC. There is diffuse opacification of the majority of the left hemithorax, with mild sparing of the left lung apex. There is a small left pleural effusion, seen predominantly at the left lung base in a subpulmonic location and laterally. There is some volume loss within the left lung. There has been significant progression from the previous CT of 09/16/2017. Mild emphysematous changes are seen within the right lung. Normal heart and pericardium. Mild coronary artery calcifications are present. There is continued fullness in the left hilum, difficult to measure accurately due to adjacent lung consolidation, which appears more prominent than on comparison study. Hilar and mediastinal structures are not well delineated in the absence of intravenous contrast. There is a small nodular density within the upper trachea towards the right. This may represent a mass or adherent debris. There is occlusion of the left mainstem bronchus. Normal unenhanced pulmonary arteries. There is mild calcification of the aortic arch. Normal osseous structures. A G-tube is partially visualized. CT/Chest without Contrast IMPRESSION: Progressive opacification of the left hemithorax with only a small amount of aeration within the left upper lobe. Ill-defined hilar density, consistent with mass/adenopathy. Volume loss within the left chest with mediastinal shift towards the left. Small nodular density along the right side of the trachea may represent adherent debris or a mass. Occlusion of the left mainstem bronchus. Small left pleural effusion with a pleural catheter in place. Electronically Signed: Steve Marquez DO at 9:51 EDT Tel , Service support , CC: ROYCE Sarmiento; Ron Padron MD [employer] Driver: Signed HH, HEMOGLOBIN AND Collected: 11/12/2017 Status: F Source: [employer] 4:35 AM [facility] REPOSITORY TYPE CODE TESTS RESULT OUT OF RANGE REFERENCE UNITS LAB L100.1300 13.0-16.5 g/dl Low HGB 8.0 LAB L100.1400 40-54 % Low HCT 25.9 Performed By: #### L100.0600 #### [facility] [address] [place], [address] CHEST 1 VIEW Observed: 11/12/2017 Status: F Source: [facility] (PORTABLE) 12:00 AM [facility] REPOSITORY [facility] Imaging Services [address] [place] [address] Chest 1 View (Portable) MR#: [id number] Acct: [id number] Name: TOMY MUNSON Rep #: [id number] : 1955 M 61 From: Steve Marquez DO PCP: ROYCE Montero Status: ADM IN Study: Chest 1 View (Portable) Date of Exam: 11/12/17 Exam# [id number] Ordering Dr: Ron Padron MD STUDY: X-RAY CHEST REASON FOR EXAM: Male, 61 years old. Pleural effusion TECHNIQUE: Single AP portable view of the chest. COMPARISON: 11/10/2017, 11/11/2017 FINDINGS: Left pleural catheter is unchanged. The tip projects near the left lung apex. Implanted left central catheter is seen with the tip in the SVC. Cardiac monitoring leads overlie the chest. The right lung is slightly hyperinflated. There is near complete opacification of the left hemithorax with evidence of some volume loss and mediastinal shift towards the left. There is some minimal aeration at the left lung apex. Heart size is difficult to evaluate due to adjacent left lung consolidation. There is mediastinal shift towards the left. Normal visualized pulmonary arteries. Normal visualized aortic arch and descending thoracic aorta. Normal visualized thoracic spine. Normal visualized ribs, clavicles, and shoulders. There is subcutaneous emphysema along the left lateral chest wall. RAD/Chest 1 View (Portable) IMPRESSION: Increasing opacification of the left hemithorax, with evidence of some volume loss. This is likely a combination of atelectasis, consolidation, pleural effusion. Life support tubes and catheters, as detailed above. Electronically Signed: Steve Marquez DO at 8:10 EDT Tel , Service support , CC: ROYCE Sarmiento; Ron Padron MD [employer]: Signed OPERATIVE REPORT Observed: 11/11/2017 Status: F Source: [facility] 5:52 PM [facility] REPOSITORY [facility] Medical Records Department [address] [place] [id number] Operative Report 11/11/17 1135 MR#: [id number] Acct: [id number] Name: TOMY MUNSON Rep #: [id number] : 1955 61 From: Ron Padron MD PCP: ROYCE Montero Status: ADM IN Y Location: [place] [address] Report of Operation Date of Procedure: 11/11/17 Pre-Operative Diagnosis: LEFT RECURRENT PLUERAL EFFUSION Post-Operative Diagnosis: LEFT RECURRENT PLUERAL EFFUSION - Surgery/Procedure Performed:: LEFT TUNNELED PLEURAL/PLEUREX CATHETER WITH ULTRASOUND GUIDANCE steel fixer: None Type of Anesthesia:: MAC Anesthesiologist: Yoko Velasquez - ASA3 Specimen's removed: pleural fluid for culture Drains: LEFT PLEUREX DRAIN - 300CC - GELATINOUS Estimated Blood Loss (mL): MINIMAL Fluids Replaced: 150 Description of Procedure: The patient was brought to the operating suite. The left chest site was marked in the holding area and the patient concurred this was the planned operative site. Sign was performed verifying patient, site, position, skip antibiotic prophylaxis- 2 g of Ancef and DVT prophylaxis with SCDs. Ultrasound was used to evaluate the left thoracic space and pleural fluid was noted to be at the planned site which was marked on the skin Following IV sedation, left chest and upper lateral abdomen were prepped and draped in the usual fashion. Timeout was performed verifying patient, site, position. Local anesthetic was injected and a Seldinger needle was used to access the left pleural space without difficulty. a guidewire was inserted and advanced into the pleural space. Local anesthetic was injected and incision made for the catheter exit site. Next the catheter was tunneled from the skin exit site to the wire. Dilators were placed over the wire until the largest dilator with introducer sheath were placed. The wire and dilator removed. The catheter was fed through the introducer suture sheath and adjusted to the edge of the pleural surface with the fenestrations . There was good return of pleural fluid. The Pleurx catheter was affixed to an adapter and attached to a Pleur-evac at 25 cm suction. A total of approximately 400 cc of fluid was drained. The catheter was secured with a 3-0 silk suture at the skin exit site. The thoracic site. Skin was closed with 4-0 Biosyn interrupted subcuticular sutures. Dermabond was applied to the thoracic site. A dressing was applied. The joints were taped and a large dressing placed over the drain exit site. The patient was brought to recovery room in stable condition with plans for a postprocedure chest x-ray. - Admit VTE Documentation VTE Present on Admission: No 11/11/17 1752 <Electronically signed by Ron Padron MD> Date Ron Padron MD CC: CAD ENGINEERWin Sarmiento; Nitish Oliver MD; Hai Ascencio MD; Kayode Arreaga MD; Ron Padron MD Signed CONSULTATION Observed: 11/11/2017 Status: F Source: [facility] 5:50 PM [facility] REPOSITORY [facility] Medical Records Department [address] [address] Consultation 11/11/171739 MR#: [id number] Acct: [id number] Name: TOMY MUNSON Rep #: [id number] : 1955 61 From: Kayode Arreaga MD PCP: ROYCE Montero Status: ADM IN Y Location: [place] [id number] Problem List (1) Atrial fibrillation and flutter Status: Acute (2) Pleural effusion Status: Acute (3) Non-small cell carcinoma of left lung, stage 3 Status: Chronic (4) Chronic anemia Status: Chronic Reason for Consult Date of Consultation: 11/11/17 History of Present Illness: The patient is a 61 year old white male who is referred for evaluation of paroxysmal atrial fibrillation/flutter with rapid ventricular response. The patient has been undergoing evaluation care for underlying lung carcinoma with concerns of metastatic pleural effusion. He is pending upcoming repeat thoracentesis/Pleurx catheter placement. In the interim he has been noted to have intermittent episodes of rapid heart rates which based on his cardiac rhythm strips appear compatible with episodes of paroxysmal atrial fibrillation/flutter. He has required treatment with IV diltiazem. He has been not thought to be an ideal candidate for systemic anticoagulation at this time based upon the need for upcoming further invasive evaluation/therapy. He denies any obvious palpitations. He has had intermittent vague left-sided chest discomfort she has been attributed to his left sided pleural effusion. This has not radiated. He has had progressive shortness of breath and dyspnea which has been attributed to his underlying pulmonary disease process. There has been no acute orthopnea, PND, peripheral pitting edema. There has been no near syncope or syncope. He denies any previous cardiovascular history or undergoing previous cardiovascular diagnostic studies. [] Past Medical History Allergies/Adverse Reactions: Allergies Iodinated Contrast- Oral and IV Dye [CT] Allergy (Mild, Verified 11/10/17 09:26) Rash Home Medications: Ambulatory Orders Medication Instructions Recorded Albuterol IH (ProAir) [Proair Hfa] 2 puff INHALATION Q6H PRN 11/10/17 Dexamethasone [Decadron] 1 tablet PO DAILY@0800 11/10/17 Past Medical History (Chronic Problems): Chronic Problems (Last Reviewed 11/06/17 @ 15:29 by Lotus Lemos RN) Chronic anemia (Chronic) Dysphagia (Chronic) Non-small cell carcinoma of left lung, stage 3 (Chronic) History of laryngeal cancer (Chronic) Pulmonary nodule, left (Chronic) Tobacco dependence in remission (Chronic) PEG (percutaneous endoscopic gastrostomy) status (Chronic) Surgical History: herniorrhaphy, - - PEG tube placement. Psychiatric History: Anxiety - *Family History Paternal Family History: Family History (Last Reviewed 11/06/17 @ 15:29 by Lotus Lemos RN) Father Heart disease History Items: Heart Disease - Maternal Family History: Family History (Last Reviewed 11/06/17 @ 15:29 by Lotus Lemos RN) Father Heart disease History Items: No pertinent history Lives: With Family Smoking Status: Former smoker Tobacco Use: Cigarettes - 75-ynbd-munu history Alcohol: None Drugs: None Review of Systems - Review of Systems General: Denies: Fever, Night Sweats, Fatigue Cardiovascular: Reports: Chest Discomfort, Shortness of Breath. Denies: Orthopnea, PND, Peripheral Edema, Palpitations, Lightheadedness, Dizziness, Near Syncope, Syncope Respiratory: Reports: Shortness of Breath Gastrointestinal: Denies: Hematemesis, Hematochezia, Melena Genitourinary: Denies: Dysuria, Hematuria Subjectve: This is a cachectic appearing 61-year-old white male who appears to be resting comfortably at the moment in no acute distress. Objective: Vital Signs Temp Pulse Resp BP Pulse Ox 99.1 F 84 24 H 103/55 L 94 11/11/17 13:00 11/11/17 17:00 11/11/17 17:00 11/11/17 17:00 11/11/17 17:00 Oxygen Flow Rate (L/min) 2 Oxygen Delivery Method Room Air Weight: 121 lb 0.54 oz Body Mass Index (BMI) 18.9 Intake and Output for Last 24 Hours Intake Total 243 / 243 2433 / 2433 Output Total 1130 / 1130 Balance 243 / 243 1303 / 1303 General: Awake, Alert, Oriented x 3, Cooperative, No Acute Distress HEENT: Atraumatic, Normocephalic, PERRL, EOMI, Sclera Non Icteric Oral: Moist Mucosa Neck: Supple, Good ROM, No JVD Lungs: Diminished Left Base Cardiovascular: Irregular Rhythm, Normal S1, Normal S2 Vascular: No Carotid Bruits Abdomen: Bowel Sounds Present, Soft, Non Tender Extremities: No edema Psych/Mental Status: Appropriate, Normal Affect 11/10/17 17:10: Troponin I < 0.015 11/11/17 04:20: Sodium 138, Potassium 4.5, Chloride 99, Carbon Dioxide 31.0, Anion Gap 8, BUN 23 H, Creatinine 0.74, Est GFR (MDRD) Af Amer 137, Est GFR (MDRD) Non-Af 114, BUN/Creatinine Ratio 31.0 H, Glucose 96, Calcium 8.8 11/11/17 04:20: WBC 7.9, RBC 2.76 L, Hgb 8.1 L, Hct 26.2 L, MCV 94.9 H, MCH 29.3, MCHC 30.9 L, RDW 15.3 H, RDW Differential 50.4 H, Plt Count 436, MPV 8.4, Immature Gran % (Auto) 0.400, Neut % (Auto) 81.6 H, Lymph % (Auto) 4.2 L, [place] % (Auto) 11.7 H, Eos % (Auto) 1.8, Baso % (Auto) 0.3, Absolute Neuts (auto) 6.4, Total Counted Not Reportable 11/11/17 04:50: Magnesium 2.0 Rhythm: Atrial fibrillation/flutter with rapid ventricular response EKG: Atrial flutter; poor R-wave progression ECHO: 11/11/2017: LV considered normal with an estimated LVEF 55%; echolucency compatible with a pleural effusion; please see official report CXR: Please see official report Assessment/Plan 1. Paroxysmal atrial fibrillation/flutter The patient has demonstrated evidence of paroxysmal atrial fibrillation/flutter. The etiology may be multifactorial. This may be related to a combination of the patient's age, underlying pulmonary disease process, however, at the same time he needs to be monitored for other obvious etiologies. At the present time he is being treated with rate control therapy. It would be reasonable to consider an attempt at regaining sinus rhythm as this recently occurred. An attempt will be made to use IV amiodarone. At the moment he is not an ideal candidate for systemic anticoagulation therapy secondary to his need to undergo continued invasive evaluation care. However, depending upon his clinical course, if this changes, he may become a candidate for systemic oral anticoagulant therapy. Also depending upon his clinical course, if he is able to undergo systemic oral anticoagulation, that he may be considered for a future attempt, if he remains in atrial fibrillation/flutter, with synchronized biphasic DC cardioversion. He has undergone noninvasive studies with a transthoracic echocardiogram. He may eventually need further cardiovascular studies either noninvasive or invasive to evaluate his cardiovascular status as deemed appropriate going forward with respect to his pulmonary condition, etc. 2. Pleural effusion He does have a pleural effusion. Hopefully by placement of his upcoming catheter this will minimize his pleural effusion. This may help with respect any contribution to his atrial dysrhythmias. 3. Lung carcinoma He is pending further evaluation care by hematology oncology with chemotherapy. 4. Anemia The patient does appear to have anemia. This may be anemia of chronic disease. He will need to be monitored for other etiologies. In the meantime depending upon his H AND H, if it declines, he may need PRBCs to assist in his oxygen carrying capacity. Comment: The patient's case has been discussed and reviewed with patient and Dr. Oliver of the [facility] pulmonology/critical care medicine staff. This note was generated with [employer] software. It may contain incorrect words, spelling, and punctuation that were not noted in checking the note before signing. 11/11/17 5160 <Electronically signed by Kayode Arreaga MD> Date Kayode Arreaga MD Cosigner Signature (if applicable): Date CC: ROYCE Sarmiento; Nitish Oliver MD; Hai Ascencio MD; Kayode Arreaga MD; Ron Padron MD Signed ECHOCARDIOGRAM COMPLETE Observed: 11/11/2017 Status: F Source: [facility] 4:43 PM [facility] REPOSITORY [facility] Cardiovascular Services [address] [place] [address] Echo Complete 11/11/17 1437 MR#: [id number] Acct: [id number] Name: TOMY MUNSON Rep #: [id number] : 1955 61 From: Kayode Arreaga MD Attending Dr: Nadege Menon Status: ADM IN Ordering Dr: Nadege Menon MD Date: 11/11/17 Location: [facility] Sex: M C Admitted: 11/10/17 Reason For Study: AFIB/FLUTTER Procedure This was a 2D Doppler, Color Flow transthoracic echocardiogram. The study was technically difficult. Due to PT sitting supine for exam, off axis apical views due to bandages (unable to remove), no subcostal view due to PEG. Exam performed portable in patient room. Left Ventricle Normal LV size. Left ventricular systolic function is normal. The estimated ejection fraction is 55 %. Unable to assess diastolic dysfunction. No regional wall motion abnormalities noted. Right Ventricle Normal RV size. Normal systolic function. Atria Normal left atrium. Normal right atrium. No doppler evidence for ASD. Mitral Valve There is no mitral annular calcification. Normal mitral valve. Trivial mitral valve insufficiency. Tricuspid Valve Normal tricuspid valve. Trivial tricuspid valve insufficiency. Right ventricular systolic pressure estimated to be 31 mmHg. Aortic Valve Trisinus/trileaflet aortic valve. Mild diffuse aortic valve thickening. Pulmonic Valve The pulmonic valve is not well visualized. Trivial pulmonic valve insufficiency. Great Vessels Normal sized aortic root. Pericardium/Pleural No pericardial effusion. Echolucency c/w a pleural effusion. MMode/2D Measurements AND Calculations LVIDd: 4.2 cm IVSd: 1.0 cm Ao root diam: 3.3 cm LVIDs: 2.5 cm LVPWd: 1.0 cm LA dimension: 2.9 cm RVDd: 3.3 cm FS: 40.5 % LAV(MOD-sp4): 47.4 ml LA A4 area: 18.2 cm2 RA A4 area: 16.2 cm2 Doppler Measurements AND Calculations MV E max leigh ann: 79.1 cm/sec Ao V2 max: 110.2 cm/sec LV V1 max: 89.0 cm/sec MV A max leigh ann: 38.5 cm/sec Ao max P.9 mmHg LV V1 max P.2 mmHg MV E/A: 2.1 PA V2 max: 98.2 cm/sec TR max leigh ann: 263.0 cm/sec TR max P.7 mmHg Interpretation Summary The study was technically difficult. Left ventricular systolic function is normal. The estimated ejection fraction is 55 %. Trivial mitral valve insufficiency. Trivial tricuspid valve insufficiency. Mild diffuse aortic valve thickening. Trivial pulmonic valve insufficiency. Echolucency c/w a pleural effusion. Right ventricular systolic pressure estimated to be 31 mmHg. Unable to assess diastolic dysfunction. Ordering Physician: Nadege Menon Referring Physician: Vish Crespo Performed By: January Storey, NIKA, RVT 11/11/171642 Date Kayode Arreaga MD CC: CAD ENGINEER-C Alfred Sarmiento; Nadege Menon Date Dictated: 11/11/17 1437 Date Transcribed: 11/11/171642 [employer]: Signed CHEST 1 VIEW Observed: 11/11/2017 Status: F Source: [facility] (PORTABLE) 11:38 AM [facility] REPOSITORY [facility] Imaging Services [address] [place] [id number] Chest 1 View (Portable) MR#: [id number] Acct: [id number] Name: TOMY MUNSON Rep #: [id number] : 1955 61 From: Steve Marquez DO PCP: ROYCE Montero Status: ADM IN Study: Chest 1 View (Portable) Date of Exam: 11/11/17 Exam# [id number] Ordering Dr: Ron Padron MD STUDY: X-RAY CHEST REASON FOR EXAM: Male, 61 years old. Pleural effusion TECHNIQUE: Single AP portable view of the chest. COMPARISON: 11/10/2017 FINDINGS: Implanted central catheter seen overlying the left chest with the tip in the SVC. There is a new left pleural catheter, with the tip projecting near the left lung apex. The right lung is expanded and clear. There is a posteriorly layering left pleural effusion. This is very similar to the prior study. There is left lower lobe opacification. There may be slightly increasing left upper lobe airspace disease. No pneumothorax. Normal size heart. Normal mediastinum and tashia. Normal visualized pulmonary arteries. Normal visualized aortic arch and descending thoracic aorta. Normal visualized thoracic spine. Normal visualized ribs, clavicles, and shoulders. There is no demonstrated abnormality of the visualized soft tissue structures of the upper abdomen. There is a small amount of subcutaneous emphysema at the left lateral chest wall. RAD/Chest 1 View (Portable) IMPRESSION: New left pleural catheter in place. No pneumothorax. There may be some increasing left upper lobe airspace disease. Electronically Signed: Steve Marquez DO at 12:19 EDT Tel , Service support , CC: ROYCE Sarmiento; Ron Padron MD [employer] Driver: Signed 12 LEAD ELECTROCARDIOGRAM Observed: 11/11/2017 Status: F Source: [place] 10:49 AM [facility] REPOSITORY [facility] Cardiovascular Services [address] [place] [address] 93167 12 Lead EKG 11/10/17 1419 MR#: [id number] Acct: [id number] Name: TOMY MUNSON Rep #: [id number] : 1955 61 From: Neal Jaimes MD Attending Dr: Nadege Menon Status: ADM IN Ordering Dr: Nadege Menon MD Date: 11/10/17 Location: [facility] Sex: M C Admitted: 11/10/17 Test Reason : Blood Pressure : / mmHG Vent. Rate : 094 BPM Atrial Rate : 094 BPM P-R Int : 122 ms QRS Dur : 086 ms QT Int : 328 ms P-R-T Axes : 069 061 052 degrees QTc Int : 410 ms Normal sinus rhythm Normal ECG When compared with ECG of 08-NOV-2016 09:54, No significant change was found Confirmed by NEAL JAIMES MD ([id number]), editor in chief newspaper WILLIAM CARLSON ([id number]) on 11/11/2017 10:48:59 AM Referred By: KEVIN Confirmed By:NEAL JAIMES MD 11/11/17 1049 Date Neal Jaimes MD CC: ROYCE Sarmiento; Nadege Menon Signed 12 LEAD ELECTROCARDIOGRAM Observed: 11/11/2017 Status: F Source: GIANNA 9:57 AM [facility] REPOSITORY [facility] Cardiovascular Services [address] [place] [address] 12 Lead EKG 11/10/17 0951 MR#: [id number] Acct: [id number] Name: TOMY MUNSON Rep #: [id number] : 1955 61 From: Neal Jaimes MD Attending Dr: Nadege Menon Status: ADM IN Ordering Dr: Billy Roland MD Date: 11/10/17 Location: [facility] Sex: M C Admitted: 11/10/17 Test Reason : SOB Blood Pressure : / mmHG Vent. Rate : 100 BPM Atrial Rate : 100 BPM P-R Int : 116 ms QRS Dur : 078 ms QT Int : 308 ms P-R-T Axes : 070 055 051 degrees QTc Int : 397 ms Normal sinus rhythm Normal ECG Confirmed by FIONA FERNANDEZ, NEAL ([id number]), editor in chief newspaper WILLIAM CARLSON ([id number]) on 11/11/2017 9:56:50 AM Referred By: Vish Crespo Confirmed By:NEAL JAIMES MD 11/11/17 0956 Date Neal Jaimes MD CC: ROYCE Sarmiento; Nicola Roland MD; Nadege Menon Signed MAGNESIUM Collected: 11/11/2017 Status: F Source: GIANNA 4:50 AM [facility] REPOSITORY TYPE CODE TESTS RESULT OUT OF RANGE REFERENCE UNITS LAB L501.5200 1.6-2.6 mg/dL Normal MG 2.0 Performed By: #### L501.5200 #### [facility] [address] [place], [address] BASIC METABOLIC Collected: 11/11/2017 Status: F Source: GIANNA PROFILE ([facility]) 4:20 AM [facility] REPOSITORY Order Comment: SPECIMEN OBTAINED FROM LINE DRAW TYPE CODE TESTS RESULT OUT OF RANGE REFERENCE UNITS LAB L501.0100 74-106 mg/dL Normal GLU 96 Result Comment: Please note revised GLUCOSE reference range effective 2017. LAB L501.1000 7-18 mg/dL High BUN 23 LAB L501.1100 0.70-1.30 mg/dL Normal CREAT,SERUM 0.74 Result Comment: The validity of the calculated GFR AND GFRAA in patients over 70 years has not been determined. Clinical correlation is essential. LAB L501.1110 >60 mL/min Normal EST GFR 114 Result Comment: Non- GFR Calc LAB L501.1115 >60 mL/min Normal EST GFR - AA 137 Result Comment: GFR Calc LAB L501.1255 ml/min Normal Estimated CRCL 81.40 LAB L501.1300 10-20 RATIO High BUN/CRE 31.0 LAB L501.2200 8.5-10 mg/dL Normal .1 CA 8.8 LAB L501.5300 136-14 mmol/L Normal 5 NA 138 LAB L501.5600 3.5-5. mmol/L Normal 1 K 4.5 LAB L501.5900 98-107 mmol/L Normal CL 99 LAB L501.6100 21.0-3 mmol/L Normal 2.0 CO2 31.0 LAB L501.6200 5-15 Normal GAP 8 Performed By: #### L500.2500 #### [facility] [address] [facility] [place], [address] CBC W/DIFF, AUTOMATED Collected: 11/11/2017 Status: F Source: [place] 4:20 AM [facility] REPOSITORY Order Comment: SPECIMEN OBTAINED FROM LINE DRAW TYPE CODE TESTS RESULT OUT OF RANGE REFERENCE UNITS LAB L100.1000 4.4-11.0 K/mm3 Normal WBC 7.9 LAB L100.1200 4.6-6.2 M/mm3 Low RBC 2.76 LAB L100.1300 13.0-16.5 g/dl Low HGB 8.1 LAB L100.1400 40-54 % Low HCT 26.2 LAB L100.1500 80-94 fL High MCV 94.9 LAB L100.1600 27.0-32.0 pg Normal MCH 29.3 LAB L100.1700 32-36 g/gl Low MCHC 30.9 LAB L100.1810 11.6-14.6 % High RDW CV 15.3 LAB L100.1820 35.1-43.9 fl High RDW SD 50.4 LAB L100.1900 150-450 K/mm3 Normal PLT 436 LAB L100.2000 6.2-12.0 fl Normal MPV 8.4 LAB L100.2100 47-70 % High NEUT% 81.6 LAB L100.2200 19-41 % Low LY% 4.2 LAB L100.2300 0-10 % High MONO% 11.7 LAB L100.2400 0-5 % Normal EO% 1.8 LAB L100.2500 0-1 % Normal BASO% 0.3 LAB L100.2550 0.0-0.9 % Normal IM GRAN % 0.400 Result Comment: IG% - Immature Granulocytes (promyelocytes, myelocytes and metamyelocytes) > 1% indicates that a LEFT SHIFT is Present. LAB L100.2620 2.0-7.7 X10 3/uL Normal Absolute Neut 6.4 LAB L100.2720 0.83-4.51 X10 3/ul Low Absolute Lymph 0.33 LAB L100.4500 Normal SMEAR COMMENT SCANNED Result Comment: LYMPHOPENIA NOTED Performed By: #### L100.0100 #### [facility] [address] [facility] [place], [place], [address] Observed: 11/11/2017 Status: F Source: GIANNA CULTURE, DEEP WOUND 12:00 AM [facility] REPOSITORY Order Date: 12/18/16 Comments: LEFT PLEURAL FLUID Gram Stain Gram Stain 4+ Red Blood Cells 3+ White Blood Cells No organisms seen Wound Culture No growth aerobically. Cult, Anaerobic No growth in 5 days. Performed By: #### M100.1500 #### [facility] [address] [place], [address] Observed: 11/11/2017 Status: F Source: GIANNA CULTURE, JUAN DANIEL W/ 12:00 AM [facility] [id number] REPOSITORY Comments: LEFT PLEURAL FLUID Is this test to exclude patient from TB Isolation? Melia Gilbert,[id number] TESTING PERFORMED AT [facility]. ORIGINAL REPORT ON FILE IN LAB CONTAINS ADDITIONAL TEST SITE INFORMATION. CUF No yeast or mold isolated after [address]136 TESTING PERFORMED AT [facility]. ORIGINAL REPORT ON FILE IN LAB CONTAINS ADDITIONAL TEST SITE INFORMATION. Fungus Stain No yeast or mold observed. Performed By: #### M600.1900 #### [facility] [address] [place], [address] CNOP Observed: 11/11/2017 Status: COMPLETED Source: DAMEON 12:00 AM [facility] REPOSITORY Operative Note (Enc) (GENSWS) Progress Notes: Ron Padron MD 11/17/2017 7:20 AM Signed OPERATIVE NOTATION FOR [facility] SURGICAL PROCEDURE. November 11, 2017 Tomy Munson 1955 [id number] male PROCEDURE: 17749 - Insertion of Tunnelled Pleural Catheter - [place] [address] - Ultrasound Guidance for Needle Placement SURGEON: Boni Padron M.D. FACS SPECIAL INSPECTOR: None DEPT: PROVIDER: [id number] Padron MD POS: [id number] DIAGNOSIS: (C34.92) Malignant neoplasm of left lung, unspecified part of lung (HCC) (primary encounter diagnosis) (J91.0) Malignant pleural effusion ASA CLASS: 3 - Severe FINDINGS: COMPLICATIONS: None PMHx - PAST MEDICAL HISTORY Diagnosis Date - Anemia - Dysphagia - Hyponatremia - Malnutrition (HCC) - Squamous cell carcinoma head and neck - Xerostomia COMORBIDITIES - Smoking/Tobacco, Cancer Metastasis and Current Cancer Therapy Post Op Occurrences - None Wound Classification - Clean Operative note dictated in the [facility] dictation system. Ron Padron MD Encounter Status:Closed by RON PADRON MD on 11/17/17 Observed: 11/10/2017 Status: F Source: [place] CULTURE, SPUTUM 7:42 PM [facility] REPOSITORY RESULTS CALLED TO [facility] 11/14/17 0858 Ernestine Chung. REPORT READ BACK BY SAME. Gram Stain Acceptable Specimen? Yes (<25 Epithelial cells per/lpf) Gram Stain 2+ White Blood Cells 2+ Epithelial cells 3+ Gram positive cocci in chains and clusters Resp. Culture Mixed normal respiratory iraj. No Haemophilus, Streptococcus pneumoniae or beta-hemolytic Streptococcus isolated. Copy of report sent to Infection Control Printer [id number] 11/13/17 6012 CLAY. ORGANISM 1: Meth. resistant Staph. aureus Amount Growth 3+ Meth. resistant Staph. aureus: REACTION Benzylpenicillin NF >=0.5 R Cefoxitin *NF + Clindamycin $$ <=0.25 R Inducable Clindamycin Resistan + Erythromycin $ >=8 R Gentamicin $ <=0.5 S Levofloxacin $ 0.25 S Linezolid $$$$ 2 S Oxacillin NF 2 R Tigecycline $$$$ <=0.12 S Rifampin $$ <=0.5 S Tetracycline NF <=1 S Trimethoprim/Sulfametho $ <=10 S Vancomycin $ <=0.5 S (NF) indicates non-formulary drug at [facility]. Approval by Infectious Disease Specialist required before non-formulary drugs may be ordered and/or dispensed. * CLSI guidelines does not recommend testing of cephalosporins. This interpretation is deduced from Beta-lactam/penicillin results. Performed By: #### M100.0800 #### [facility] [address] [place], [address] CONSULTATION Observed: 11/10/2017 Status: F Source: [place] 7:21 PM [facility] REPOSITORY [facility] Medical Records Department [address] [place] [address] Consultation 11/10/171917 MR#: [id number] Acct: [id number] Name: TOMY MUNSON Rep #: [id number] : 1955 61 From: Ron Padron MD PCP: ROYCE Montero Status: ADM IN Location: [address] Reason for Consult Date of Consultation: 11/10/17 History of Present Illness: The patient is a 61 year old M with a recently diagnosed left lung cancer. He has a left malignant pleural effusion. He had thoracentesis of this left pleural fluid performed on Friday. He is noted increasing shortness of breath. Chest x-ray today demonstrates significant reaccumulation of the left pleural fluid now about half the lung field. I was contacted for Pleurx catheter placement. Past Medical History Past Medical History (Chronic Problems): Chronic Problems (Last Reviewed 11/06/17 @ 15:29 by Lotus Lemos RN) Chronic anemia (Chronic) Dysphagia (Chronic) Non-small cell carcinoma of left lung, stage 3 (Chronic) History of laryngeal cancer (Chronic) Pulmonary nodule, left (Chronic) Tobacco dependence in remission (Chronic) PEG (percutaneous endoscopic gastrostomy) status (Chronic) Medical History: Medical History (Last Reviewed 11/06/17 @ 15:29 by Lotus Lemos RN) Anemia D64.9 Chicken pox B01.9 Dysphagia R13.10 Hypernatremia E87.0 Hyponatremia E87.1 Hypothyroidism E03.9 LEFT WRIST SURGERY Laryngeal cancer C32.9 Lymphadenitis I88.9 Measles B05.9 Mumps B26.9 Status post insertion of percutaneous endoscopic gastrostomy (PEG) tube Z93.1 Allergies Iodinated Contrast- Oral and IV Dye [CT] Allergy (Mild, Verified 11/10/17 09:26) Rash Home Medications: Ambulatory Orders Medication Instructions Recorded Albuterol IH (ProAir) [Proair Hfa] 2 puff INHALATION Q6H PRN 11/10/17 Dexamethasone [Decadron] 1 tablet PO DAILY@0800 11/10/17 Surgical History: Surgical History (Last Reviewed 11/06/17 @ 15:29 by Lotus Lemos, RN) History of hernia repair Z98.890, Z87.19 Surgical History: herniorrhaphy, - - PEG tube placement. Psychiatric History: Anxiety Lives: With Family Smoking Status: Former smoker Tobacco Use: Cigarettes - 21-ugus-wulx history Alcohol: None Drugs: None - *Family History Paternal Family History: Family History (Last Reviewed 11/06/17 @ 15:29 by Lotus Lemos, RN) Father Heart disease History Items: Heart Disease - Maternal Family History: Family History (Last Reviewed 11/06/17 @ 15:29 by Lotus Lemos, RN) Father Heart disease History Items: No pertinent history Review of Systems Constitutional: Reports: Anorexia, Malaise, Weakness. Denies: Chills, Fever, Weight Change HEENT: Reports: - - mouth pain on the right side of his mouth Cardiovascular: Denies: Chest Pain, Palpitations Respiratory: Reports: Cough. Denies: Shortness of breath at rest, Sputum production Gastrointestinal: Denies: Abdominal Pain, Nausea, Vomiting Genitourinary: Denies: Dysuria Musculoskeletal: Denies: Joint Pain, Joint Tenderness Skin: Denies: Rash, Wounds Neurological: Denies: Numbness, Tingling, Focal weakness Psychiatric: Denies: Anxiety, Depression, Homicidal Ideations, Suicidal Ideations Hematologic/ Lymphatic: Denies: Easy Bruising, Easy Bleeding - Physical Exam General: Alert, Oriented x3, Cooperative HEENT: - Oral: Ulcerations Present - with visible bone in the right lower jaw Lungs: Diminished - left to mid base with dullness to percussion on the left hemithorax bottom half consistent with recurring effusion Cardiovascular: Tachycardic Abdomen: Bowel Sounds Present, Soft, Non Tender Vital Signs Temp Pulse Resp BP Pulse Ox 99.5 F H 97 16 112/50 L 94 11/10/17 16:45 11/10/17 16:45 11/10/17 16:45 11/10/17 16:45 11/10/17 16:45 Oxygen Delivery Method Room Air Weight: 54.9 kg Body Mass Index (BMI) 18.9 Intake and Output for Last 24 Hours Intake Total 243 / 243 Balance 243 / 243 Laboratory Tests Past 24 Hrs PT 14.6 INR 1.1 APTT 33.7 Troponin I 0.016 Urine Color Yellow Urine Clarity Clear Urine pH 7.0 Ur Specific Guin 1.010 PT INR APTT Troponin I < 0.015 Urine Color Urine Clarity Urine pH Ur Specific Guin Urine Protein Urine Glucose (UA) Urine Ketones Assessment/Plan recurring left pleural effusion-need for tunneled pleural catheter I plan to perform a left tunneled thoracic catheter/Pleurx catheter. The patient understands the risks, benefits, possible complications and alternatives. The patient consents to the procedure. We'll make the patient nothing by mouth. We'll hold Lovenox tomorrow. We will plan for 2 g of Ancef on-call to the operating suite. 11/10/171920 <Electronically signed by Ron Padron MD> Date Ron Padron MD Cosigner Signature (if applicable): Date CC: CAD ENGINEER-C Alfred Sarmiento; Nitish Oliver MD; Hai Ascencio MD; Ron Padron MD Signed TROPONIN-I Collected: 11/10/2017 Status: F Source: GIANNA 5:10 PM [facility] REPOSITORY Order Comment: 'TROP' Serial specimen #1, #2 or #3: 3 TYPE CODE TESTS RESULT OUT OF RANGE REFERENCE UNITS LAB L501.4010 <0.045 ng/mL Normal < 0.015 TROPONIN-I Result Comment: TROPONIN-I EXPECTED VALUES <0.045 Negative 0.045 - 0.590 Consistent with Cardiac Damage > OR = 0.600 Critical Value Not every elevated troponin is indicative of PR. These values should be used with clinical judgement in examining the patient's clinical picture for diagnosis. To establish a diagnosis of PR versus myocardial injury, there must be a demonstrated rise and/or fall in the troponin values, in addition to ischemic symptoms, EKG changes, new regional wall motion abnormality, and/or angiographical evidence. PLEASE NOTE: REFERENCE RANGES EDITED 17 Performed By: #### L501.4010 #### [facility] [address] [place], [address] CONSULTATION Observed: 11/10/2017 Status: F Source: [place] 4:04 PM [facility] REPOSITORY [facility] Medical Records Department [address] [place] [address] Consultation 11/10/17 1445 MR#: [id number] Acct: [id number] Name: TOMY MUNSON Rep #: [id number] : 1955 61 From: Ban CRANE PCP: ROYCE Montero Status: ADM IN Y Location: [address] ADDENDUM by Nitish Oliver MD on 11/10/17 at 1603 Code Visit Patient seen and examined independently in conjunction with nurse practitioner. All data, including note below, was personally reviewed and I agree with the added comments. In brief, patient is known to our practice and was recently diagnosed with lung cancer by Dr. Robles. Patient presented to [facility] on 11/10/2017 secondary to progressive shortness of breath. Patient had received a left-sided thoracentesis just 3 days prior to presentation and stated that he felt this was similar. At that time, patient had 530 cc of blood-tinged fluid removed. Patient did report discomfort at the time of drainage. In the emergency room, patient had a chest x-ray showing no pneumothorax, but significant reaccumulation of left-sided pleural effusion. Patient is saturating well on room air does not have any significant leukocytosis on laboratory workup. Physical exam was independently performed and I agree as listed below. Patient did have dullness to percussion proximally residential up on the left chest. No palpable lymphadenopathy was appreciated. No murmurs were appreciated. Patient was able to ambulate under his own power. Coagulation studies have been ordered, but have not resulted at this time. Assessment and plan Clinical concern for rapid reaccumulation of malignant pleural effusion. Do not believe that diagnostic studies are necessary, but patient likely should be evaluated for a Pleurx catheter. Patient does have a PEG tube to provide nutrition. Patient okay to proceed with chemotherapy from my perspective. Patient did have an office visit scheduled for Friday to follow up with Dr. Robles. This will be delayed. Await surgery recommendations. No steroids or antibiotics are likely indicated. Inpatient E AND M: 83590 Init Hosp L2 11/10/17 1604 <Electronically signed by Nitish Oliver MD> Date Nitish Oliver MD cc: CAD ENGINEER-C Alfred Sarmiento; Nitish Oliver MD; Hai Ascencio MD; Ron Padron MD * Signed Problem List (1) Non-small cell carcinoma of left lung, stage 3 Status: Chronic (2) History of laryngeal cancer Status: Chronic (3) Pulmonary nodule, left Status: Chronic (4) Chronic anemia Status: Chronic (5) Dysphagia Status: Chronic (6) Tobacco dependence in remission Status: Chronic (7) PEG (percutaneous endoscopic gastrostomy) status Status: Chronic Reason for Consult Date of Consultation: 11/10/17 Reason for Consultation: worsening L pleural effusion, recent diagnosis lung CA History of Present Illness: The patient is a 61 year old M with a past medical history as below, last seen by Dr. Robles on 10/01/17 secondary to hilar mass s/p EBUS 09/26, diagnosis of non-small cell carcinoma, favor squamous cell, presented to the ED on 11/10/17 with complaints of progressive shortness of breath since Friday. The patient underwent a left-sided thoracentesis on Friday and has developed worsening shortness of breath and chest discomfort since then. There was approximately 530 mL of blood-tinged fluid drained. A chest x-ray was performed postprocedure and showed no pneumothorax. The patient's chest discomfort does worsen with deep inspiration and with exertion. He has tried using his albuterol inhaler with some improvement in his pain and breathing. The patient has an occasional productive cough of yellow sputum, was green a couple of days ago. Denies any epistaxis or hemoptysis. Denies any fever or chills. Also complains of inability to pass much food down his esophagus, has been losing weight. He has been having nausea and vomiting as well. The patient does have a PEG tube for nutrition. Complains of night sweats. Patient also has a history of laryngeal cancer status post chemoradiation in 2016 with subsequent dysphagia. Not on a modified diet. Significant past smoking history, quit in 2016. A CT of the chest was performed on September 16 that showed increased size in the left lower lobe lung nodule along with a new infrahilar mass, which appeared to cause compression/obstruction of the left lower lobe mainstem bronchus. However, the distal lung remained aerated indicating that the obstruction was not complete. Initial vitals BP 136/76, pulse 103, RR 20, 98.8 F, 97% on room air. Blood work revealed no leukocytosis, hemoglobin of 8.6, was 12.8 on September 23, 2017. Coags were normal. Chemistry remarkable for chloride of 95 and serum bicarb of 34. BUN was 28 and creatinine 0.94. Troponin and BNP were negative. EKG sinus rhythm with no acute changes. Chest x-ray showing progressive pleural parenchymal changes at the left lung base with volume loss in the left hemithorax. Right lung was clear. The patient was transitioned to the progressive care unit for further evaluation and management, with plans for probable Pleurx catheter insertion. Past Medical History Past Medical History (Chronic Problems): Chronic Problems (Last Reviewed 11/06/17 @ 15:29 by Lotus Lemos RN) Chronic anemia (Chronic) Dysphagia (Chronic) Non-small cell carcinoma of left lung, stage 3 (Chronic) History of laryngeal cancer (Chronic) Pulmonary nodule, left (Chronic) Tobacco dependence in remission (Chronic) PEG (percutaneous endoscopic gastrostomy) status (Chronic) Medical History: Medical History (Last Reviewed 11/06/17 @ 15:29 by Lotus Lemos RN) Anemia D64.9 Chicken pox B01.9 Dysphagia R13.10 Hypernatremia E87.0 Hyponatremia E87.1 Hypothyroidism E03.9 LEFT WRIST SURGERY Laryngeal cancer C32.9 Lymphadenitis I88.9 Measles B05.9 Mumps B26.9 Status post insertion of percutaneous endoscopic gastrostomy (PEG) tube Z93.1 Allergies Iodinated Contrast- Oral and IV Dye [CT] Allergy (Mild, Verified 11/10/17 09:26) Rash Home Medications: Ambulatory Orders Medication Instructions Recorded Albuterol IH (ProAir) [Proair Hfa] 2 puff INHALATION Q6H PRN 11/10/17 Dexamethasone [Decadron] 1 tablet PO DAILY@0800 11/10/17 Surgical History: Surgical History (Last Reviewed 11/06/17 @ 15:29 by Lotus Lemos, RN) History of hernia repair Z98.890, Z87.19 Surgical History: herniorrhaphy, - - PEG tube placement. Psychiatric History: Anxiety Lives: With Family Smoking Status: Former smoker Tobacco Use: Cigarettes - 58-btrz-giwu history Alcohol: None Drugs: None - *Family History Paternal Family History: Family History (Last Reviewed 11/06/17 @ 15:29 by Lotus Lemos RN) Father Heart disease History Items: Heart Disease - Maternal Family History: Family History (Last Reviewed 11/06/17 @ 15:29 by Lotus Lemos RN) Father Heart disease History Items: No pertinent history Review of Systems Constitutional: Reports: Anorexia, Night Sweats, Weakness, Weight Change, Fatigue. Denies: Chills, Fever Eyes: Denies: Vision Change HEENT: Reports: Difficulty Swallowing, - - Throat feels tight. Denies: Head Aches, Nasal bleeding, Nasal Congestion, Post Nasal Drip, Sinus Congestion, Sinus Drainage, Sore Throat Cardiovascular: Reports: Chest Pain, Chest Tightness, Orthopnea. Denies: Edema, Light Headedness, Palpitations, Paroxysmal Noc. Dyspnea, Syncope Respiratory: Reports: Cough, Pleuritic Pain, Shortness of breath upon exertion, Sputum production. Denies: Hemoptysis, Wheezing Gastrointestinal: Reports: Nausea, Vomiting. Denies: Abdominal Pain, Constipation, Diarrhea, Dyspepsia, Hematemesis, Hematochezia, Melena Genitourinary: Denies: Dysuria, Frequency, Hematuria, Nocturia, Retention Musculoskeletal: Denies: Leg Pain, Neck Pain Skin: Denies: Rash, Wounds Neurological: Reports: Difficulty swallowing. Denies: Balance problems, Change in Speech, Confusion, Focal weakness, Numbness, Tingling, Tremor, Seizures Psychiatric: Reports: Anxiety, Depression. Denies: Suicidal Ideations Endocrine: Reports: Change in Body Habitus - Losing weight, inability to eat Hematologic/ Lymphatic: Reports: Anemia, Easy Bruising, Easy Bleeding. Denies: Adenopathy, Hx of blood clot Subjective: The patient was seen and examined. Denies any shortness of breath per se, however feels like he just cannot take a deep breath. He is maintaining appropriate saturations on room air. Denies any fever or chills. No current cough or sputum production. His chest pain is waxing and waning, typically increases with activity or deep breath. Objective: Clinical Impression(s) from Imaging Studies Chest X-Ray 11/10/17 09:38 IMPRESSION: Progressive pleural parenchymal changes at the left lung base with volume loss in the left hemithorax. Electronically Signed: Yosef Blevins MD at 10:26 EDT Tel [phone], Service support , - Physical Exam General: Alert, Oriented x3, Cooperative, No apparent distress, - - Cachectic, appears older than stated age HEENT: Atraumatic, PERRLA, Normocephalic Oral: No Gingival or Mucosal Lesions/ Ulcerations, Dry Mucosa Neck: Supple, No Nodes, No Nuchal Rigidity, Trachea Midline, - - no overt masses palpated but evidence of radiation w/areas of firmness Lungs: No rhonchi, - - Diminished on the left with some dullness to percussion, no rhonchi wheezes or rales. Right lung clear. Cardiovascular: Regular rate, Regular Rhythm, Normal S1, Normal S2, No murmurs, No rub noted, No Gallop Abdomen: Bowel Sounds Present, Soft, Non Tender, Non-Distended Extremities: No clubbing, No cyanosis, No edema Skin: No rashes, No breakdown Musculoskeletal: No Tenderness to Palpation of Joints or Extremities, Arthritic Changes, Cachexia, Muscle Wasting Lymphatic: No Cervical, Supraclavicular, or Inguinal Adenopathy Neurological: Cranial nerves II-XII grossly intact, Neuro grossly intact, Motor Exam 5/5 strength throughout Psych/Mental Status: Alert and oriented to time, place, person, mood and affect Vital Signs Temp Pulse Resp BP Pulse Ox 98.2 F 98 18 104/52 L 96 11/10/17 14:05 11/10/17 14:05 11/10/17 14:05 11/10/17 14:05 11/10/17 14:05 Oxygen Delivery Method Room Air Weight: 121 lb 0.54 oz Body Mass Index (BMI) 18.9 Laboratory Tests Past 24 Hrs PT Pending INR Pending APTT Pending Troponin I Pending Assessment/Plan RECOMMENDATIONS 1. Oxygen supplementation to keep saturations greater than 90% 2. Encourage incentive spirometer 3. Increase activity as tolerated 4. Continue PRN aerosols 5. Consult surgery, plan for Pleurx catheter placement 6. Continue nutrition through PEG tube IMPRESSIONS 1. Newly diagnosed left lung cancer, hilar mass Follows with Dr. Robles, had an endobronchial ultrasound guided biopsy in September 2017 with diagnosis of non-small cell lung cancer. Patient with recent thoracentesis on 11/06 and removal of approximate 530 mL of bloody fluid. Current imaging showing rapid reaccumulation of the fluid, highly suspicious for recurrent malignant effusion. Would recommend placement of Pleurx cath to facilitate drainage. The indications, risks, and benefits were reviewed with the patient and he is agreeable to proceed with procedure. Coags were normal. Consult placed to surgery. 2. Chronic anemia/dysphagia/history of laryngeal cancer status post radiation/tobacco dependence in remission Complicates care, management, recovery, and prognosis. May benefit from a swallowing evaluation. Encouraged ongoing smoking cessation. Check a CBC in the morning as hemoglobin is significantly lower than last month. No evidence of acute bleed at this time. Thank you for the opportunity to participate in this patient's care, please do not hesitate contact us with any further questions or concerns. This note was generated with [employer] dictation software. It may contain incorrect words, spelling, and punctuation that were not noted in checking the note before signing. 11/10/17 1550 <Electronically signed by Ban CRANE> Date Ban CRANE Cosigner Signature (if applicable): Date CC: CAD ENGINEER-C Alfred Sarmiento; Nitish Oliver MD; Hai Ascencio MD; Ron Padron MD Signed PROTHROMBIN TIME W/INR Collected: 11/10/2017 Status: F Source: [place] 2:15 PM [facility] REPOSITORY TYPE CODE TESTS RESULT OUT OF RANGE REFERENCE UNITS LAB L300.4150 11.7-14.9 SECONDS Normal PROTIME 14.6 LAB L300.4200 Normal INR 1.1 Performed By: #### L300.3900, L300.4310 #### [facility] [address] [place], [address] PARTIAL THROMBOPLAST Collected: 11/10/2017 Status: F Source: [place] TIME 2:15 PM [facility] REPOSITORY TYPE CODE TESTS RESULT OUT OF RANGE REFERENCE UNITS LAB L300.4310 24.1-36.2 Seconds Normal PTT 33.7 Performed By: #### L300.3900, L300.4310 #### [facility] [address] [place], [address] HISTORY AND PHYSICAL Observed: 11/10/2017 Status: F Source: [place] EXAM 2:12 PM [facility] REPOSITORY [facility] Medical Records Department [address] [place] [id number] History and Physical 11/10/17 1319 MR#: [id number] Acct: [id number] Name: MARNITOMY Tai Rep #: [id number] : 1955 61 From: Nadege Menon MD PCP: ROYCE Montero Status: ADM IN Y Location: [place] [address] Problem List (1) Chronic anemia Status: Chronic (2) Dysphagia Status: Chronic (3) Non-small cell carcinoma of left lung, stage 3 Status: Chronic (4) History of laryngeal cancer Status: Chronic (5) Pulmonary nodule, left Status: Chronic (6) Tobacco dependence in remission Status: Chronic (7) PEG (percutaneous endoscopic gastrostomy) status Status: Chronic History of Present Illness Date of Admission: 11/10/17 Chief Complaint: Chest pain, shortness of breath. The patient is a 61 year old M with past medical history as mentioned above presented to the emergency room because of chest pain and shortness of breath. This patient had left thoracentesis for left-sided pleural effusion this past Friday, November 07, 2017 and later on that date, he started having chest pain and shortness of breath. The chest pain is both on the anterior chest as well as left lateral chest, pressure-like pain, 6 out of 10 in severity, goes across the left lateral chest, associated with shortness of breath as well as productive cough with small amount of yellow to green sputum, aggravated by taking a deep breath, intermittent pain without relieving factors. He has been more short of breath since he had the thoracentesis which comes mainly on exertion but has been progressively increasing since Friday. He denied fever chills. He denies dizziness or lightheadedness. He denies syncope or presyncope. Also, he complained of right ear pain that has been going on for 3 months, dull aching pain, associated with mild decreasing hearing on the right ear, aggravated by moving his right jaw. On September 26, 2017, he underwent endoscopic endobronchial ultrasound with transbronchial needle aspiration and endobronchial biopsies for left hilar mass and histopathology of that mass revealed moderately differentiated non-small cell carcinoma in favor of squamous cell carcinoma. He is supposed to start chemotherapy tomorrow. In the emergency department, his vital signs were stable and his pulse ox was normal on room air. His routine blood work is remarkable for hemoglobin of 8.6 g/dL, otherwise normal. EKG revealed normal sinus rhythm, normal OR interval, normal QRS, normal QTC and no acute ischemic changes. His troponin is negative. Chest x-ray revealed worsening left-sided pleural effusion. He is being admitted for chest pain, worsening left sided pleural effusion, shortness of breath and right ear pain with questionable tympanic membrane rupture. Past Medical History Past Medical History (Chronic Problems): Chronic Problems (Last Reviewed 11/06/17 @ 15:29 by Lotus Lemos RN) Chronic anemia (Chronic) Dysphagia (Chronic) Non-small cell carcinoma of left lung, stage 3 (Chronic) History of laryngeal cancer (Chronic) Pulmonary nodule, left (Chronic) Tobacco dependence in remission (Chronic) PEG (percutaneous endoscopic gastrostomy) status (Chronic) Medical History: Medical History (Last Reviewed 11/06/17 @ 15:29 by Lotus Lemos RN) Anemia D64.9 Chicken pox B01.9 Dysphagia R13.10 Hypernatremia E87.0 Hyponatremia E87.1 Hypothyroidism E03.9 LEFT WRIST SURGERY Laryngeal cancer C32.9 Lymphadenitis I88.9 Measles B05.9 Mumps B26.9 Status post insertion of percutaneous endoscopic gastrostomy (PEG) tube Z93.1 Allergies Iodinated Contrast- Oral and IV Dye [CT] Allergy (Mild, Verified 11/10/17 09:26) Rash Home Medications: Ambulatory Orders Medication Instructions Recorded Albuterol IH (ProAir) [Proair Hfa] 2 puff INHALATION Q6H PRN 11/10/17 Dexamethasone [Decadron] 1 tablet PO DAILY@0800 11/10/17 Surgical History: Surgical History (Last Reviewed 11/06/17 @ 15:29 by Lotus Lemos, RN) History of hernia repair Z98.890, Z87.19 Surgical History: herniorrhaphy, - - PEG tube placement. Psychiatric History: Anxiety Lives: With Family Smoking Status: Former smoker Alcohol: None Drugs: None - *Family History Paternal Family History: Family History (Last Reviewed 11/06/17 @ 15:29 by Lotus Lemos, MARIO) Father Heart disease History Items: Heart Disease - Maternal Family History: Family History (Last Reviewed 11/06/17 @ 15:29 by Lotus Lemos RN) Father Heart disease History Items: No pertinent history Review of Systems Constitutional: Reports: Anorexia, Weakness. Denies: Chills, Fever Eyes: Denies: Blurred vision, Double vision, Drainage, Redness HEENT: Reports: Ear Pain - Right ear pain., Hearing Changes. Denies: Difficulty Hearing, Eye Pain, Nasal Congestion, Sore Throat Cardiovascular: Reports: Chest Pain. Denies: Edema, Heaviness, Light Headedness, Orthopnea, Paroxysmal Noc. Dyspnea, Syncope Respiratory: Reports: Shortness of Breath, Shortness of breath upon exertion. Denies: Cough, Hemoptysis, Pleuritic Pain, Sputum production, Wheezing Gastrointestinal: Denies: Abdominal Pain, Constipation, Diarrhea, Nausea, Vomiting Genitourinary: Denies: Dysuria, Frequency, Hematuria Musculoskeletal: Denies: Arm Pain, Back Pain, Foot Pain Skin: Denies: Dryness, Rash Neurological: Denies: Balance problems, Change in Speech, Confusion, Focal weakness, Headaches, Incoordination, Numbness Psychiatric: Reports: Anxiety. Denies: Depression Endocrine: Denies: Change in Body Habitus, Polydipsia VTE Information - Inpt Only VTE Present on Admission: No VTE Mechan Device Prophylaxis: SCD's VTE Pharm Prophylaxis ordered?: No - Physical Exam General: Alert, Oriented x3, Cooperative, No apparent distress HEENT: Atraumatic, PERRLA, EOMI, Normocephalic, - - Tympanic membrane on the right: 2 red spots, questionable perforated tympanic membrane. Oral: Moist Mucosa, No Gingival or Mucosal Lesions/ Ulcerations Neck: Supple, No JVD, Negative Carotid Bruits, Trachea Midline, Thyroid Normal Size and Texture Lungs: Clear to auscultation, No rhonchi, No wheeze, No rales, Diminished Cardiovascular: Regular rate, Regular Rhythm, Normal S1, Normal S2, PMI Normal Abdomen: Bowel Sounds Present, Soft, Non Tender, Non-Distended, No Hepato-splenomegaly, - - PEG tube in place. Extremities: No clubbing, No cyanosis, No edema Skin: No rashes, No breakdown Lymphatic: No Cervical, Supraclavicular, or Inguinal Adenopathy Neurological: Cranial nerves II-XII grossly intact, Motor Exam 5/5 strength throughout Psych/Mental Status: Normal Affect, Appropriate, Alert and oriented to time, place, person, mood and affect Vital Signs Temp Pulse Resp BP Pulse Ox 98.8 F 90 25 H 102/55 L 95 11/10/17 09:24 11/10/17 12:20 11/10/17 12:20 11/10/17 12:20 11/10/17 12:20 Oxygen Delivery Method Room Air Weight: 160 lb Body Mass Index (BMI) 25.0 Laboratory Tests Past 24 Hrs WBC 9.4 RBC 2.95 L Hgb 8.6 L Hct 27.3 L MCV 92.5 Clinical Impression(s) from Imaging Studies Chest X-Ray 11/10/17 09:38 IMPRESSION: Progressive pleural parenchymal changes at the left lung base with volume loss in the left hemithorax. Electronically Signed: Yosef Blevins MD at 10:26 EDT Tel [phone], Service support , Assessment/Plan This is a 61 years old male patient presented to the emergency room because of anterior chest pain, left lateral chest pain and shortness of breath, found to have worsening left side pleural effusion in context of recent diagnosis of non-small cell lung cancer and also complains of right ear pain with change in hearing and questionable perforated right tympanic membrane. #1 worsening left pleural effusion: Status post recent left thoracentesis on November 07, 2017, 530 mL of blood-tinged fluid was drained. Pleural fluid analysis reviewed, no pleural fluid protein, albumin or LDH performed. Chest x-ray from today reviewed, revealed worsening left sided pleural effusion. Vital signs are stable, pulse ox is maintained on room air. Plan: Admit to PCU, cardiac monitoring, serial cardiac enzymes, IV morphine as needed for pain, OxyIR as needed for pain, IV fluids, IV antiemetics, pulmonology consult, PT, PTT and INR, PT OT evaluation and treatment. #2 recent diagnosis of non-small cell lung cancer: Status post endoscopic endobronchial ultrasound with biopsies, biopsy revealed moderately differentiated non-small cell lung carcinoma, in favor of squamous cell carcinoma. The plan was to start him on chemotherapy today, now would be postponed. Plan as above. #3 chest pain: Seems to be atypical, it is on both anterior chest and left lateral chest. EKG revealed normal sinus rhythm, no acute ischemic changes. First troponin is negative. Plan: Cardiac monitoring, serial cardiac enzymes, repeat EKG tomorrow morning. #4 right ear pain/questionable perforated right tympanic membrane: This has been going on for 3 months. Right ear examination revealed 2 red spots on the tympanic membrane, questionable perforation. Plan for ENT consult. #5 acute on chronic anemia: It is normocytic anemia, likely because of anemia chronic disease secondary to cancer. Baseline hemoglobin has been fluctuating around 11-12 g/dL. Admission hemoglobin is 8.6 g/dL, it is the first time has been this low. At this time, no evidence of active bleeding. Pleural effusion could be hemorrhagic. At this time, noted indication for blood transfusion. Plan to repeat CBC tomorrow morning. #6 history of laryngeal cancer: Status post chemotherapy and radiation, in remission. #7 chronic dysphagia: Status post PEG tube placement, on tube feeds. #8 DVT prophylaxis: SCDs. This note was generated with Dragon dictation software. It may contain incorrect words, spelling, and punctuation that were not noted in checking the note before signing. Code Visit Inpatient E AND M: 19962 Init Hosp L3 11/10/17 1412 <Electronically signed by Nadege Menon MD> Date Nadege Menon MD Cosigner Signature: Date (if applicable) CC: ROYCE Sarmiento; Nadege Menon Signed EMERGENCY DEPARTMENT Observed: 11/10/2017 Status: F Source: [place] SUMMARY 1:20 PM [facility] REPOSITORY [facility] Medical Records Department [address] [place] [address] Emergency Department Summary 11/10/17 1146 MR#: [id number] Acct: [id number] Name: TOMY MUNSON Rep #: [id number] : 1955 61 From: Billy Roland MD PCP: ROYCE Montero Status: REG ER - ER Visit Summary Date of Service: 11/10/17 Chief Complaint: [shortness of breath, chest pain] History of Present Illness: The patient is a 61 M [the presents with worsening shortness of breath over the last 2 days. He has a history of recently diagnosed left-sided lung cancer and had thoracentesis this past Friday. He states he initially felt better then began to feel progressively short of breath again over the last 2 days. He also describes intermittent chest pain and right-sided jaw pain. No diaphoresis or exertional symptoms. He is scheduled to start chemotherapy tomorrow. He has a history of past smoking. He appears in no acute distress. He has no other complaints.] Physical Examination: [General: The patient appears well and in no apparent distress. Patient is resting comfortably on cart. Skin: Warm, dry, no pallor noted. No rash. Left anterior chest port site benign. Head: Normocephalic, atraumatic Neck: Supple, nontender. No JVD. Eye: PERRLA, EOMI ENT: Moist mucus membranes, pharynx within normal limits. Cardiovascular: Regular Rate and Rhythm, no gallups or rubs Respiratory: Patient is in no distress, no accessory muscle use, lungs are clear to auscultation on the right side, diminished at the left base, no wheezing, rales or rhonchi Musculoskeletal: normal ROM, no deformity, no tenderness, no swelling. 2+ radial and DP pulses symmetric. GI: No tenderness to palpation, no masses appreciated. No rebound, guarding, or rigidity noted. Neurological: A AND O, normal strength and sensation. GCS 15. Psychiatric: Cooperative] Test Results: [EKG shows sinus rhythm with a rate of 100, no acute ischemic changes or arrhythmia, overall unchanged from prior EKG. Hemoglobin is 8.6. CO2 is 34 and BUN is 28. Troponin and BNP are negative. Chest x-ray shows increased left-sided parenchymal changes from recent prior study.] Emergency Department Course and Treatment: [Patient was given albuterol breathing treatment without significant improvement of his symptoms. Chest x- ray finds reaccumulated and worsened left-sided pleural effusion. Patient is not hypoxic and appears in no respiratory distress. On reevaluation at 1140 pulse oximetry 95% on room air. His blood pressure is about 100 systolic which he states is normal for him. He has no fever. Given patient's chest pain and dyspnea I feel he requires admission to the hospital for further evaluation of his chest pain as well as possible repeat thoracentesis or placement of a drain for his left-sided pleural effusion that is making him symptomatically dyspneic. Given his cancer he may need evaluation for possible PE. CTA imaging not able to be performed in the emergency department due to IV dye allergy. Patient would possibly be a candidate for a VQ scan upon admission if indicated. This was discussed with patient and family who are agreeable. Patient's Heart Score is 4. Patient discussed with hospitalist, Dr. Menon, who is agreeable with admission. Patient admitted to PCU in stable condition. ] Treatment Plan: [see above] Disposition: [admission] Impression: [Dyspnea, Chest Pain, Recurrent Pleural Effusion] This note was generated with [employer] software. It may contain incorrect words, spelling, and punctuation that were not noted in review of the chart prior to signing ED Disposition - Plan for ED Patient: Chief Complaint: Shortness of Breath Referrals: Alfred Sarmiento, [facility] [Primary Care Provider] - What to do if you have Problems For any increased pain, shortness of breath, bleeding, nausea or vomiting, chest pain, or any unexpected problems, contact your Primary Care Provider. Call [facility] ([phone]) or report to the closest Emergency Room. Call 911 if necessary. 11/10/17 1320 <Electronically signed by Billy Roland MD> Date Billy Roland MD Cosigner Signature (If Indicated): Date CC: ROYCE Sarmiento URINALYSIS, COMPLETE Collected: 11/10/2017 Status: F Source: [place] 1:15 PM [facility] REPOSITORY Order Comment: How was Urine Obtained? CLEAN CATCH TYPE CODE TESTS RESULT OUT OF RANGE REFERENCE UNITS LAB L400.3000 Yellow COLOR Normal Yellow LAB L400.3050 Clear Normal CLARITY Clear LAB L400.3200 Normal mg/dl Normal GLUCOSE, UR Normal LAB L400.3300 Negative mg/dL Normal BILIRUBIN URINE Negative LAB L400.3400 Negative mg/dl Normal KETONE UR Negative LAB L400.3465 1.002-1.030 Normal SP.GR. DIPSTX 1.010 LAB L400.3550 5.0 - 8.0 pH UR Normal 7.0 LAB L400.3600 Negative mg/dl High PROT 15 DIPSTX LAB L400.3700 Normal mg/dl Normal UROBILI Normal LAB L400.3750 Negative Normal NITRITE UR Negative LAB L400.3780 Negative /ul Normal OCCULT BLOOD-UR Negative LAB L400.3800 Negative /ul LEUK Normal ESTERASE Negative LAB L400.4050 0-5 /hpf WBC 0 Normal SEEN LAB L400.4100 0-5 /hpf 0 Normal RBC-UA SEEN LAB L400.4150 0-5 /hpf SQUAM 0 Normal EPI SEEN LAB L400.4300 None Seen /hpf Normal BACTERIA RARE LAB L400.4350 <or=2+ /hpf 0 Normal MUCUS, URINE SEEN Performed By: #### L400.0001 #### [facility] [address] [place], [address] CBC W/DIFF, AUTOMATED Collected: 11/10/2017 Status: F Source: [place] 10:53 AM [facility] REPOSITORY TYPE CODE TESTS RESULT OUT OF RANGE REFERENCE UNITS LAB L100.1000 4.4-11.0 K/mm3 Normal WBC 9.4 LAB L100.1200 4.6-6.2 M/mm3 Low RBC 2.95 LAB L100.1300 13.0-16.5 g/dl Low HGB 8.6 LAB L100.1400 40-54 % Low HCT 27.3 LAB L100.1500 80-94 fL Normal MCV 92.5 LAB L100.1600 27.0-32.0 pg Normal MCH 29.2 LAB L100.1700 32-36 g/gl Low MCHC 31.5 LAB L100.1810 11.6-14.6 % High RDW CV 15.3 LAB L100.1820 35.1-43.9 fl High RDW SD 52.5 LAB L100.1900 150-450 K/mm3 Normal PLT 358 LAB L100.2000 6.2-12.0 fl Normal MPV 8.1 LAB L100.2100 47-70 % High NEUT% 88.1 LAB L100.2200 19-41 % Low LY% 7.9 LAB L100.2300 0-10 % Normal MONO% 3.1 LAB L100.2400 0-5 % Normal EO% 0.5 LAB L100.2500 0-1 % Normal BASO% 0.2 LAB L100.2550 0.0-0.9 % Normal IM GRAN % 0.200 Result Comment: IG% - Immature Granulocytes (promyelocytes, myelocytes and metamyelocytes) > 1% indicates that a LEFT SHIFT is Present. LAB L100.2620 2.0-7.7 X10 3/uL High Absolute Neut 8.3 LAB L100.2720 0.83-4.51 X10 3/ul Low Absolute Lymph 0.74 LAB L100.5500 ADEQ Normal PLT EST ADEQUATE Result Comment: RARE GIANT PLATELET NOTED LAB L100.7500 Normal POLYCHROMASIA 1+ LAB L100.7600 Normal HYPOCHROMASIA 2+ Performed By: #### L100.0100 #### [facility] [address] [place], [address] BASIC METABOLIC Collected: 11/10/2017 Status: F Source: [place] PROFILE (BMP) 10:53 AM [facility] REPOSITORY TYPE CODE TESTS RESULT OUT OF RANGE REFERENCE UNITS LAB L501.0100 74-106 mg/dL High GLU 137 Result Comment: Fasting Glucose result greater than or equal to 126 mg/dL suggests DIABETES MELLITUS per A.D.A. criteria. Please note revised GLUCOSE reference range effective 2017. LAB L501.1000 7-18 mg/dL High BUN 28 LAB L501.1100 0.70-1.30 mg/dL Normal CREAT,SERUM 0.94 Result Comment: The validity of the calculated GFR AND GFRAA in patients over 70 years has not been determined. Clinical correlation is essential. LAB L501.1110 >60 mL/min Normal EST GFR 87 Result Comment: Non- GFR Calc LAB L501.1115 >60 mL/min Normal EST GFR - AA 105 Result Comment: GFR Calc LAB L501.1255 ml/min Normal Estimated CRCL 77.16 LAB L501.1300 10-20 RATIO High BUN/CRE 29.8 LAB L501.2200 8.5-10 mg/dL Normal .1 CA 9.3 LAB L501.5300 136-14 mmol/L Normal 5 NA 136 LAB L501.5600 3.5-5. mmol/L Normal 1 K 4.1 LAB L501.5900 98-107 mmol/L Low CL 95 LAB L501.6100 21.0-3 mmol/L High 2.0 CO2 34.0 LAB L501.6200 5-15 Normal GAP 7 Performed By: #### L500.2500, L501.4010 #### [facility] [address] [place], [address] TROPONIN-I Collected: 11/10/2017 Status: F Source: [place] 10:53 AM [facility] REPOSITORY TYPE CODE TESTS RESULT OUT OF RANGE REFERENCE UNITS LAB L501.4010 <0.045 ng/mL Normal 0.018 TROPONIN-I Result Comment: TROPONIN-I EXPECTED VALUES <0.045 Negative 0.045 - 0.590 Consistent with Cardiac Damage > OR = 0.600 Critical Value Not every elevated troponin is indicative of PR. These values should be used with clinical judgement in examining the patient's clinical picture for diagnosis. To establish a diagnosis of PR versus myocardial injury, there must be a demonstrated rise and/or fall in the troponin values, in addition to ischemic symptoms, EKG changes, new regional wall motion abnormality, and/or angiographical evidence. PLEASE NOTE: REFERENCE RANGES EDITED 17 Performed By: #### L500.2500, L501.4010 #### [facility] [address] [place], [address] BNP,B-TYPE NATRIURETIC Collected: 11/10/2017 Status: F Source: BEECHER PEPTIDE 10:53 AM [facility] REPOSITORY TYPE CODE TESTS RESULT OUT OF RANGE REFERENCE UNITS LAB L503.6620 0-100 pg/mL Normal B-TYPE 32.0 YUAN PEP Performed By: #### L503.6620 #### [facility] [address] [place], [address] CHEST 1 VIEW Observed: 11/10/2017 Status: F Source: GIANNA (PORTABLE) 9:39 AM [facility] REPOSITORY [facility] Imaging Services [address] [place] [address] Chest 1 View (Portable) MR#: [id number] Acct: [id number] Name: MARNITOMY Tai Rep #: [id number] : 1955 M 61 From: Yosef Blevins MD PCP: ROYCE Montero Status: PRE ER Study: Chest 1 View (Portable) Date of Exam: 11/10/17 Exam# [id number] Ordering Dr: Billy Roland MD STUDY: X-RAY CHEST REASON FOR EXAM: Male, 61 years old. Dyspnea and shortness of breath. History of pleural effusion. TECHNIQUE: Single AP portable view of the chest. COMPARISON: Comparison is made with prior study dated November 07, 2017. FINDINGS: A left-sided portacatheter is seen with the tip at the junction of the superior cava and right atrium. Since prior study, there is increasing pleural parenchymal changes at the left lung base with loss of volume in the left hemithorax. The right lung is hyperexpanded and clear. Normal size heart. Normal mediastinum and tashia. Normal visualized pulmonary arteries. Normal visualized aortic arch and descending thoracic aorta. Normal visualized thoracic spine. Normal visualized ribs, clavicles, and shoulders. There is no demonstrated abnormality of the visualized soft tissue structures of the upper abdomen. RAD/Chest 1 View (Portable) IMPRESSION: Progressive pleural parenchymal changes at the left lung base with volume loss in the left hemithorax. Electronically Signed: Yosef Blevins MD at 10:26 EDT Tel [phone], Service support , CC: ROYCE Sarmiento; Nicola Roland MD [employer]: Signed CHEST INSP/EXP 2 VIEW Observed: 11/07/2017 Status: F Source: BEECHER 3:03 PM [facility] REPOSITORY [facility] Imaging Services [address] [place] [address] Chest Insp/Exp 2 View MR#: [id number] Acct: [id number] Name: TOMY MUNSON Rep #: [id number] : 1955 M 61 From: Yosef Blevins MD PCP: ROYCE Montero Status: REG CLI Study: Chest Insp/Exp 2 View Date of Exam: 11/07/17 Exam# [id number] Ordering Dr: Yosef Blevins MD STUDY: X-RAY CHEST REASON FOR EXAM: Male, 61 years old. The patient is status post left thoracentesis. TECHNIQUE: PA expiration and inspiration chest radiographs. COMPARISON: None. FINDINGS: The patient is status post left thoracentesis. No evidence of pneumothorax. Residual pleural parenchymal changes at the left lung base. RAD/Chest Insp/Exp 2 View IMPRESSION: There is no evidence of pneumothorax following the left thoracentesis. Electronically Signed: Yosef Blevins MD at 15:49 EDT Tel [phone], Service support , CC: ROYCE Sarmiento; Yosef Blevins MD [employer]: Signed BODY FLUID CELL Collected: 11/07/2017 Status: C Source: GIANNA COUNT+DIFF 2:45 PM [facility] REPOSITORY Order Comment: DR CRESPO IS LOOKING SPECIFICALLY FOR MALIGNANT CELLS The reference range and other method performance specifications have not been established for this body fluid. The test must be integrated into the clinical context for interpretation. Specimen Source: LT THORACENTESIS TYPE CODE TESTS RESULT OUT OF RANGE REFERENCE UNITS LAB L200.3380 10 3/ul Normal BFTC# 0.859 Result Comment: This is the Total Number of Nucleated Cell Types in the Body Fluid. LAB L200.3400 10 6/ul Normal RBC/BF 0.85648 LAB L200.3500 10 3/uL Normal 0.795 WBC/BF LAB L200.3510 % Normal 34.8 BF PMN WBC% LAB L200.3515 % Normal 65.2 BF MN WBC% LAB L200.3520 10 3/uL Normal 0.518 BF MN WBC# LAB L200.3525 10 3/uL Normal 0.277 BF PMN WBC# LAB L200.4400 Normal PATH COMM/BF Reviewed Result Comment: Negative for malignant cells Please also correlate with cytology report [id number] [place] M.D. 11/11/17 Pathologist comment added AMENDED REPORT 11/11/17 1122 PATH COMM/BF previously reported as: May follow LAB L200.3600 % PMN 44 Normal LAB L200.3700 % LYMPH 17 Normal LAB L200.3800 % MONO/BF 7 Normal LAB L200.3900 % MESOTHELIAL 20 Normal LAB L200.3950 % MACROPHAGES 12 Normal LAB L200.3100 SOURCE/BF THORACENTESIS Normal LAB L200.3200 COLOR/BF PINK Normal LAB L200.3300 APPEAR/BF CLOUDY Normal LAB L200.4420 BFM 2ND SEE COMMENT Normal SPEC Result Comment: . INTERPRETATION OF RESULTS: Differentiation of transudate and exudate fluid: TRANSUDATE EXUDATE Color- Clear,straw colored Clear,turbid,bloody,purulent RBCs- Usually none to few Often present in high numbers WBCs- Usually none to few Often present in high numbers DIFF Few lymphocytes or Lymphocytes, neutrophils, and Count- mesothelial cells. polymorphonuclear cells . Performed By: #### L200.0200 #### [facility] [address] [facility] [address] [place], [place], [id number] Observed: 11/07/2017 Status: F Source: GIANNA CULTURE, BODY FLUID 2:45 PM [facility] REPOSITORY List Antibiotics Last 48 Hours? UNK List Antibiotics to be Started? UNK Gram Stain * This is an amended result. * A prior result that was reported as final has been changed. 11/08/17 1448 by SHAHBAZ Previously reported as: ACC SPEC COMMENT NOT ON BF Gram Stain Rare White Blood Cells 4+ Red Blood Cells No organisms seen Body Fluid Cult Culture exhibits no growth. Cult, Anaerobic No anaerobic bacteria isolated. Performed By: #### M100.1300 #### [facility] [address] [facility]. [place], [place], [address] CYTOLOGY, BODY FLUID / Collected: 11/07/2017 Status: F Source: GIANNA CSF 2:45 PM [facility] REPOSITORY Order Comment: DR CRESPO IS LOOKING SPECIFICALLY FOR MALIGNANT CELLS Specimen Source: LT THORACENTESIS TYPE CODE TESTS RESULT OUT OF RANGE REFERENCE UNITS LAB L350.1000 SEE Normal PATHOLOGY CYTOLOGY,BF REPORT /CSF Result Comment: Specimen submitted to Anatomical Pathology Department for testing. Performed By: #### L350.1000 #### [facility] [address] [place], [address] THORACENTESIS W US Observed: 11/07/2017 Status: F Source: BEECHER 2:18 PM [facility] REPOSITORY [facility] Imaging Services [address] [place] [address] Thoracentesis W US MR#: [id number] Acct: [id number] Name: TOMY MUNSON Rep #: [id number] : 1955 M 61 From: Yosef Blevins MD PCP: ROYCE Montero Status: REG CLI Study: Thoracentesis W US Date of Exam: 11/07/17 Exam# [id number] Ordering Dr: Vish Crespo DO PROCEDURE: ULTRASOUND GUIDED THORACENTESIS. DATE: November 07, 2017.. INDICATION: Male, 61 years old. Left pleural effusion PHYSICIAN: Yosef Blevins M.D. PROCEDURE: The risks, benefits, and alternatives to the procedure were explained to the patient. The specific risks of bleeding, infection, and pneumothorax requiring chest tube insertion were discussed and accepted. Written informed consent was obtained. Ultrasonographic evaluation of the left lower pleural space was carried out. An adequate pocket was identified. The patient was placed in the sitting, upright position. The overlying skin was prepped and draped in sterile fashion. 1% lidocaine was administered subcutaneously for local anesthesia. Under ultrasound guidance, a 5French thoracentesis needle/catheter system was advanced into the left posterior lower pleural fluid collection. Approximately 530 mL of blood tinged fluid was drained. The catheter was removed, and a sterile dressing was applied. A specimen was collected and sent to the laboratory for analysis, as requested by the referring clinician. The patient tolerated the procedure well. A chest x-ray was ordered. US/Thoracentesis W US IMPRESSION: Ultrasound-guided left thoracentesis. Electronically Signed: Yosef Blevins MD at 15:56 EDT Tel [phone], Service support , CC: ROYCE Sarmiento; Vish Crespo DO [employer]: Signed ONCOLOGY VISIT REPORT Observed: 11/07/2017 Status: F Source: GIANNA 9:53 AM [facility] REPOSITORY [facility] [address] [place] [address] OFFICE VISIT Date of Service: 11/06/17 1646 MR#: [id number] Acct: [id number] Name: TOMY MUNSON Rep #: [id number] : 1955 From: Nino Leigh MD Age/Sex: 61/M Location: ONC Status: Signed Subjective - Date of Service Date of Service:: 11/06/17 - Chief Complaint F/u for NSCLC management. - History of Present Illness Mr. 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 He was treated with concurrent chemotherapy and Radiation. He received 3 cycles of Cisplatin 100mg/m2 from 07/04/2015-08/09/2015. He had a PET/CT done on 11/30/2015 which showed no hypermetabolic activity. PET/CT on 09/30/2016 demonstrated hypermetabolic activity within the left lower lobe and at the level of the laryngeal structures. Underwent biopsies of larynx on 11/15/16 under the care of Dr. Ascencio, pathology of which were negative. Had CT guided bx of LLL nodule on 01/02/[address] scan of chest on 09/16/2017 showed increasing Left lower lobe mass and new Left hilar mass. He was referred for EBUS + biopsy, it was done on 09/26/2017 and showed squamous cell cancer. MRI brain done on 10/14/2017 was negative for brain metastases. PET/CT on 10/16/2017 shows new hypermetabolic activity in left hemithorax with activity in precarinal area mediastinum, left perihilar area and pleural effusion. Comes for follow up to discuss treatment options. - Past Medical/Social History Past Medical History Past Medical History: Anemia Other Past Medical History: Hyponatremia Hypothyroidism Dysphagia Hypernatremia Lymphadenitis Measles Mumps Chicken Pox Other Cancer History: Laryngeal Past Surgical History Surgical: Hernia repair Other Surgical History: Left Wrist surgery Peg Tube Family History Paternal Past Medical History: Heart disease Maternal Past Medical History: Unknown Social History Social History: No changes Smoking Status Former smoker Review of Systems Constitutional:: Denies: Fever, Sweats, Weight loss, Appetite change, Chills Cardiovascular:: Denies: Chest pain, Palpitations, Dyspnea on exertion, Orthopnea, PND, Shortness of breath Respiratory: Denies: Cough, Hemoptysis, Shortness of Breath, Wheezing Gastrointestinal:: Denies: Abdominal pain, Nausea, Vomiting, Diarrhea, Constipation, Hematochezia Genitourinary: Denies: Dysuria, Hematuria, 15, Flank pain Musculoskeletal:: Denies: Back pain, Myalgia, Arthralgia Skin: Denies: Rash, Skin Changes, Wounds Neurological:: Denies: Headache, Dizziness, Visual changes, Tinnitus, Hearing loss Psychiatric: Denies: Anxiety, Depression, Homicidal Ideations, Suicidal Ideations Vital Signs Height 5 ft 8 in Weight: 62.006 kg Weight in Pounds 136.7 lbs BMI 20.7 Pulse Ox 96 - Physical Exam General: Alert, Oriented x3, No apparent distress Assessment and Plan Non small cell lung cancer, squamous cell type, T4 N2 M0/M1a- stage IIIB/IV. Compression of Left main bronchus and Pulmonary vessels. History of Laryngeal CA stage TAWNY, S/P Chemoradiation therapy. Discussed treatment with combined chemotherapy and Radiation, chemotherapy alone.risks, benefits and side effects. Suggested starting chemotherapy with Taxol and Carboplatin. He agrees to start therapy Plan is to start Taxol + Carboplatin next week. Return to clinic 1 wk. Medications: Prescriptions This Visit Medication Instructions Recorded Levothyroxine [Synthroid] 150 mcg GT DAILY 08/14/16 Dexamethasone [Decadron] 4 mg PO DAILY@0800 #30 tab 10/29/17 Primary Care Provider: ROYCE Montero Referring Provider: - Problem List (1) History of laryngeal cancer Status: Chronic (2) Non-small cell carcinoma of left lung, stage 3 Status: Chronic Code Visit Office Visits / Consults: 21715 OV L4 Est 11/07/17 0953 <Electronically signed by Nino Leigh MD> Date Nino Leigh MD Cosigner Signature: Date (if applicable) CC: IMMUNOHISTOCHEMISTRY Observed: 11/07/2017 Status: F Source: BEECHER 12:00 AM [facility] REPOSITORY Patient: TOMY MUNSON : 1955 (61/M) Acct Num: [id number] Phys: Vish Crespo DO Unit Num: [id number] Loc: Specimen: [id number] Received: 11/11/17 - 1100 Spec Type: IMMUNO TISSUES TISSUES: THORACIC FLUID SPECIMEN INFORMATION: Tissue Source: Thoracic fluid Clinical Info: Pleural effusion Specimen Number: [id number] CPT code: 62026, 84950 x13 METHODOLOGY: Deparaffinized sections of prefer/formalin-fixed tissue or PAP/DQ stained slides are incubated with monoclonal/polyclonal antibodies/oligonucleotide probes. Localization is made via biotin free immunoperoxidase method. Appropriate controls are performed and reacted as expected. Results on target cell population are indicated in the following table: RESULTS: ANTIBODY / CLONE RESULT Vimentin (V9) negative * AE1-3 (AE1/AE3/PCK26) negative * CK7 (OV-TL12/30) negative * CK8 (55bhtvB53) negative * CK20 (KS20.8) negative TTF-1 (8G7G3/1) negative Napsin A (Rabbit Polyclonal) negative HepPar (OCh1E5) negative RCC (PN-15) negative PSA (ER-PR8) negative Macro (HAM-56) negative CK5-6 (D5 AND 1684) negative * CALRET (polyclonal) negative * P40 (BC28) negative * - Positive in mesothelial cells - Positive in the macrophages These tests were developed and their performance characteristics determined by [facility]. They may not have been cleared or approved by the U.S. Food and Drug Administration. The FDA has determined that such clearance or approval is not necessary. INTERPRETATION: Thoracentesis fluid: Negative for malignant cells. SJ:mona 11/11/17 PHYSICIAN AND INSTITUTION [address] [address] Signed [place] 11/12/17 <signature on file> Performed By: #### PIMM #### [facility] [address] [place] [address]. [place], [place], [id number] FLUID/WASHING Observed: 11/07/2017 Status: F Source: BEECHER 12:00 AM [facility] REPOSITORY Patient: TOMY MUNSON : 1955 (61/M) Acct Num: [id number] Phys: Vish Crespo, DO Unit Num: [id number] Loc: US Specimen: [id number] Received: 11/07/17 - 1650 Spec Type: Fluid TISSUES TISSUES: THORACIC FLUID COMMENT Immunohistochemistry ([id number]) supports the above diagnosis. Please make reference to previous specimen cytology [id number] Left hilar mass fluid (cell block) with diagnosis of malignant cells present derived from moderately differentiated non-small cell carcinoma, favor squamous cell carcinoma. Correlation with clinical findings and appropriate followup are necessary. Case has been reviewed in consultation with Dr. Maldonado who concurs with the above diagnosis. IDC:AM CYTOLOGY GROSS Received is 50 ml of red cloudy fluid labeled with the patient's name and and designated per the requisition as left thoracentesis. Submitted for cytology preparation including cell block. / 11/10/17 TC: 5 CPT: 00681, 42382 CYTOLOGY STUDY Slides are reviewed. DIAGNOSIS CYTOLOGY Thoracentesis (Cytospin and cell block): Negative for malignant cells. See comment. MC:leandro 11/11/17 HEADER OPERATION: Ultrasound-guided left thoracentesis PRE-OP DIAGNOSIS: Pleural effusion TISSUE SUBMITTED: Thoracentesis fluid for cytology Signed [place] S[place] 11/12/17 <signature on file> Performed By: #### PFLU #### [facility] [address] [place], [address] CONSULTATION Observed: 11/06/2017 Status: F Source: BEECHER 4:50 PM [facility] REPOSITORY [facility] Medical Records Department [address] [place] [address] Consultation 11/06/17 1611 MR#: [id number] Acct: [id number] Name: TOMY MUNSON Rep #: [id number] : 1955 61 From: Vish Crespo DO PCP: ROYCE Montero Status: REG RCR Y Location: ONC Date of Service: 11/06/17 Referring Provider: Dr. 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 History of Present Illness: 06/19/2015: Patient underwent direct laryngoscopy with biopsy of the supraglottic mass which demonstrated invasive moderately differentiated squamous cell carcinoma (p16 negative). 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 From 07/04/15- 08/25/15 he received 7104 cGy in 36 fractions. Chemotherapy was given from 07/04/2015 through 08/09/2015 and consisted of 3 cycles of 100 mg/m cisplatin. 12/23/2016: CT chest with contrast was performed which demonstrated a 1.5 x 1.4 cm noncalcified nodule in the peripheral aspect of the superior segment of the left lower lobe as well as a 5.3 mm noncalcified nodule in the posterior medial segment of the left lower lobe. 01/02/2017: Patient underwent CT-guided biopsy of the left lower lung mass which demonstrated evidence for pneumocyte to hyperplasia with mild atypia but no evidence of malignancy in the submitted specimen. 04/07/2017: CT chest with contrast was performed which showed that the previously seen spiculated mass in left lower lobe had enlarged and now measures 2.04 x 1.72 cm, there is a slightly enlarged small indistinct nodular density in the right upper lobe medially posterior to the trachea which measures 0.46 cm and on the previous exam measured 0.3 cm, there is a lymph node anterior to the right mainstem bronchus which on short axis measures 0.95 cm and previously was 0.65 cm, enlarged left hilar lymph node measuring 1.1 cm is new. 07/07/2017: CT chest with contrast was performed which demonstrated a 2.4 x 1.2 cm lobulated irregular nodular density in the peripheral aspect of the left lower lobe which has increased in size from the previous study, a prominent left hilar lymph node is measured at 2.2 cm. 09/16/2017: CT chest with contrast was performed and demonstrated that the left lower lobe nodular density measuring 3.5 x 2.5 cm and previously measured 2.4 x 1.2 cm, there is a new left infrahilar mass measuring about 4.2 by 3.4 cm resulting in complete occlusion of the right lower lobe bronchus with extension into the segmental bronchi of the right lower lobe. 09/26/2017: Bronchoscopy with EBUS was performed. There was noted to be a large circumferential endobronchial lesion noted at the bifurcation of the left upper and left lower lobes and this lesion appeared to nearly completely obstructed orifice of the left lower lobe takeoff. On ultrasound this lesion measured at least 3.5 x 4.5 cm and several biopsies were obtained. Pathology demonstrated fragment of necrotic material with atypical squamous cells suspicious for carcinoma (CK7 weakly positive, CK20/TTF1/p16 all negative). 10/14/2017: MRI brain was completed which showed no evidence for intracranial metastatic disease. 10/16/2017: PET scan was performed which showed evidence for persistent and newly defined increased glucose concentration manifest in the left mid lower posterior, posterior lateral hemithorax pulmonary parenchyma with a calculated SUV of 12.7, newly defined increased glucose concentration manifest in the precarinal posterior mediastinum and left thoracic perihilum. There is interim metabolic resolution of the previously identified left lower lobe pulmonary parenchymal as well as laryngeal structure hypermetabolic abnormalities. Radiation Treatment History: 1) Patient was diagnosed with stage TAWNY (T3 N2c M0) supraglottic laryngeal squamous cell carcinoma and was treated with concurrent chemoradiation. From 07/04/15-08/25/15 he received 7104 cGy in 36 fractions. Chemotherapy was given from 07/04/2015 through 08/09/2015 and consisted of 3 cycles of 100 mg/m cisplatin. Denies having a pacemaker Interval History: Patient presents for initial consultation. He reports doing fairly well overall. He is PEG dependent for food but can drink liquids, this is related to the previous radiation therapy to the larynx. He denies having any new worsening shortness of breath which is intermittent with activity but usually very mild. He reports having some increase in cough over the last couple of months and denies having any hemoptysis. He denies having any unexpected weight loss or fatigue. He does report some pain with palpation involving the left lateral mid back but denies having pain anywhere else. He has persistent taste abnormality and xerostomia related to the previous radiation. He denies having any other problems or concerns at this time. Family History (Last Reviewed 11/06/17 @ 15:29 by Lotus Lemos RN) Father Heart disease Medical History (Last Reviewed 11/06/17 @ 15:29 by Lotus Lemos, RN) Anemia (Acute) Chicken pox (Acute) Dysphagia (Acute) Hypernatremia (Acute) Hyponatremia (Acute) Hypothyroidism (Acute) LEFT WRIST SURGERY (Acute) Laryngeal cancer (Acute) Lymphadenitis (Acute) Measles (Acute) Mumps (Acute) Status post insertion of percutaneous endoscopic gastrostomy (PEG) tube (Acute) Surgical History (Last Reviewed 11/06/17 @ 15:29 by Lotus Lemos, RN) History of hernia repair (Acute) Social History - Tobacco Smoking Status Former smoker Type of tobacco: Cigarettes Smokeless tobacco usage: Never Years used: 25 Passive smoke exposure: No Social History - Substance Drug use: No Caffeine use [drinks/day]: 1 Alcohol use: No Type of alcohol: Beer Comments: every other day Social History - Living Arrangements Patients Living Arrangements Alone Home Medications Medication Instructions Recorded Levothyroxine [Synthroid] 150 mcg GT DAILY 08/14/16 Dexamethasone [Decadron] 4 mg PO DAILY@0800 #30 tab 10/29/17 Allergy/AdvReac Type Severity Reaction Status Date / Time Iodinated Contrast- Oral and Allergy Mild Rash Verified 11/06/17 15:16 IV Dye [CT] Health Maintenance Do you regularly see your Yes primary care physician? Have you ever had a No colonoscopy? Date of last colonoscopy: 02/01/16 I have reviewed the medical, surgical, and other pertinent history in details and have updated medication and allergy information in the electronic medical record. Review of Systems: A 12-point review of systems was completed and was negative except for what is noted in the HPI/Interval History and by the nurse. Height/Weight/BMI: Height: 5 ft 8 in Weight: 62.006 kg BMI: 20.7 Vital Signs Temperature 98.7 F 11/06/17 15:18 Temperature Source Oral 11/06/17 15:18 Pulse Rate 99 11/06/17 15:18 Respiratory Rate 16 11/06/17 15:18 Physical Exam: ECO KARNOFSKY SCORE: 80% CONSTITUTIONAL: Well-developed, well-nourished, and in no apparent distress. HEENT: Mucous membranes dry. No evidence of thrush or lesions within the visualized oropharynx or oral cavity. No trismus. Pupils are equal, round, and reactive to light and accommodation. Extraocular movements are intact. Sclerae are anicteric. NECK: Skin fibrosis noted. Trachea midline. No cervical or supraclavicular adenopathy noted. CARDIAC: Regular rate and rhythm. Normal S1, S2. No murmurs, rubs, or gallops. PULMONARY/CHEST: Reduced lung sounds noted in the mid and lower left lung with rhonchi noted. Left upper lobe and right lung is clear to auscultation with diffuse rhonchi, no wheezing or rales were noted. No increased work of breathing. ABDOMINAL: Abdomen soft, non-tender, non-distended. PEG tube in place. No hepatomegaly. Normoactive bowel sounds in all four quadrants. No guarding, rebound. BACK: Straight and aligned. No CVA tenderness. Axial skeleton non-tender to percussion. Pain with palpation was appreciated in a small area in the lateral left middle back. EXTREMITIES: Full range of motion in all four extremities, with normal strength equally and symmetrically. No evidence of edema. No clubbing. SKIN: Skin is warm and dry. No rashes or lesions evident. NEUROLOGICAL EXAM: Alert and oriented x 3. Cranial nerves II through XII are grossly intact. No focal neurological deficit. Speech is fluent. There is no upper or lower extremity sensory deficit or motor deficit. Muscle strength is 5/5 in all muscle groups. Gait and posture are steady. PSYCHIATRIC: Appropriate mood and affect for the clinical situation. Imaging: As per HPI Laboratory Data: CBC 09/23/2017 unremarkable. 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 I reviewed the most recent imaging including the CT chest from 09/16/2017 and the PET scan from 10/16/2017 with the patient. The CT chest shows a peripheral lung mass and large hilar adenopathy in 4 weeks later the PET scan shows hypermetabolic activity for both of these regions with a primary tumor measured at over 8 cm. New on the PET scan is a large left lower lobe pleural effusion/atelectasis with some scattered hypermetabolic activity throughout this area extending down to the most inferior extent of the left lower lobe. Clinically the patient has a good performance status and is relatively asymptomatic with mild increase in cough, mild shortness of breath on exertion, and a focal area of pain in the mid lateral back likely associated with the position of the peripheral lung lesion, possibly chest wall invasion. He is still PEG dependent. I had a detailed discussion with the patient regarding potential treatment options for stage IIIB non-small cell lung cancer. I reviewed options including definitive concurrent chemoradiation therapy, radiation therapy for palliation of disease, and chemotherapy alone. I discussed the need to further assess if there is pleural fluid and determine if it contains malignant disease as this would change stage and treatment goals. He is scheduled for ultrasound and potential thoracentesis tomorrow. If fluid is attainable and positive with malignant disease then I would recommend initiation with systemic therapy alone. If they are unable to obtain pleural fluid or if the fluid does not contain malignant cells then it would be reasonable to consider definitive chemoradiation therapy. However, I do think that it is difficult to definitively delineate the extent of disease within the chest on the PET scan given the large area of low-level activity more diffusely spread throughout the left lower lobe. I will follow-up on thoracentesis results and have the patient return early next week to further discuss treatment recommendations. Thank you for allowing me to participate in the management and care of your patient. If I may answer any questions in the interim, please do not hesitate to contact me at any time. Vish Crespo DO, MS [employer], Department of Radiation Oncology [facility] 11/06/17 1650 <Electronically signed by Vish Crespo DO> Date Vish Crespo DO Cosigner Signature (if applicable): Date CC: ROYCE Sarmiento; Nino Leigh MD Signed PROTHROMBIN TIME W/INR Collected: 11/06/2017 Status: F Source: GIANNA 4:30 PM [facility] REPOSITORY TYPE CODE TESTS RESULT OUT OF RANGE REFERENCE UNITS LAB L300.4150 11.7-14.9 SECONDS Normal PROTIME 14.3 LAB L300.4200 Normal INR 1.1 Performed By: #### L300.3900 #### [facility] [address] [place], [place], [address] THYROID STIM HORMONE Collected: 11/06/2017 Status: F Source: GIANNA (TSH) 4:20 PM [facility] REPOSITORY TYPE CODE TESTS RESULT OUT OF RANGE REFERENCE UNITS LAB L501.9520 0.358-3.74 uIU/mL Normal TSH 0.97 Performed By: #### L501.9520, L506.0400 #### [facility] [address] [place], [address] T4 FREE DIRECT Collected: 11/06/2017 Status: F Source: GIANNA 4:20 PM [facility] REPOSITORY TYPE CODE TESTS RESULT OUT OF RANGE REFERENCE UNITS LAB L506.0400 0.76-1.46 ng/dL Normal T4 FREE 1.45 DIRECT Performed By: #### L501.9520, L506.0400 #### [facility] [address] [place], [address] ONCOLOGY VISIT REPORT Observed: 10/29/2017 Status: F Source: GIANNA 5:06 PM [facility] REPOSITORY [facility] [address] [place] [address] OFFICE VISIT Date of Service: 10/29/17 1644 MR#: [id number] Acct: [id number] Name: TOMY MUNSON Rep #: [id number] : 1955 From: Nino Leigh MD Age/Sex: 61/M Location: [facility] Status: Signed Subjective - Date of Service Date of Service:: 10/29/17 - Chief Complaint F/u for PET/CT results. - History of Present Illness Mr. 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 He was treated with concurrent chemotherapy and Radiation. He received 3 cycles of Cisplatin 100mg/m2 from 07/04/2015-08/09/2015. He had a PET/CT done on 11/30/2015 which showed no hypermetabolic activity. PET/CT on 09/30/2016 demonstrated hypermetabolic activity within the left lower lobe and at the level of the laryngeal structures. Underwent biopsies of larynx on 11/15/16 under the care of Dr. Ascencio, pathology of which were negative. Had CT guided bx of LLL nodule on 01/02/[address] scan of chest on 09/16/2017 showed increasing Left lower lobe mass and new Left hilar mass. He was referred for EBUS + biopsy, it was done on 09/26/2017 and showed squamous cell cancer. He had PET/CT and MRI brain done and comes for follow up. - Past Medical/Social History Past Medical History Past Medical History: Anemia Other Past Medical History: Hyponatremia Hypothyroidism Dysphagia Hypernatremia Lymphadenitis Measles Mumps Chicken Pox Other Cancer History: Laryngeal Past Surgical History Surgical: Hernia repair Other Surgical History: Left Wrist surgery Peg Tube Family History Paternal Past Medical History: Heart disease Maternal Past Medical History: Unknown Social History Social History: No changes Smoking Status Former smoker Review of Systems Constitutional:: Denies: Fever, Sweats, Weight loss, Appetite change, Chills Cardiovascular:: Denies: Chest pain, Palpitations, Dyspnea on exertion, Orthopnea, PND, Shortness of breath Respiratory: Denies: Cough, Hemoptysis, Shortness of Breath, Wheezing Gastrointestinal:: Denies: Abdominal pain, Nausea, Vomiting, Diarrhea, Constipation, Hematochezia Genitourinary: Denies: Dysuria, Hematuria, 15, Flank pain Musculoskeletal:: Denies: Back pain, Myalgia, Arthralgia Skin: Denies: Rash, Skin Changes, Wounds Neurological:: Denies: Headache, Dizziness, Visual changes, Tinnitus, Hearing loss Psychiatric: Denies: Anxiety, Depression, Homicidal Ideations, Suicidal Ideations Vital Signs Height 5 ft 8 in Weight: 61.235 kg Weight in Pounds 135.0 lbs Pulse Ox 97 - Physical Exam General: Alert, Oriented x3, No apparent distress, - - thin. Abdomen:: - - + peg tube. Diagnostic Data: 10/14/2017 MRI brain reviewed shows no evidence of intracranial metastatic disease, chronic ischemic changes. 10/16/2017 PET/CT reviewed, left perihilar extending into mediastinum mass 6 cm, + subcarinal adenopathy, left posterior lower lung mass 8 cm. Assessment and Plan Non small cell lung cancer, squamous cell type, T4 N2 M0-stage IIIB. Compression of Left main bronchus and Pulmonary vessels. History of Laryngeal CA stage TAWNY, S/P Chemoradiation therapy. Discussed treatment with combined chemotherapy and Radiation, risks, benefits and side effects. He wants to think about it.. Plan is to obtain Radiation Oncology consult. Return to clinic 1 wk. Medications: Prescriptions This Visit Medication Instructions Recorded Levothyroxine [Synthroid] 150 mcg GT DAILY 08/14/16 Dexamethasone [Decadron] 4 mg PO DAILY@0800 #30 tab 10/29/17 Primary Care Provider: ROYCE Montero Referring Provider: - Problem List (1) History of laryngeal cancer Status: Chronic (2) Non-small cell carcinoma of left lung, stage 3 Status: Chronic Code Visit Office Visits / Consults: 31216 OV L5 Est 10/29/17 1706 <Electronically signed by Nino Leigh MD> Date Nino Leigh MD Cosigner Signature: Date (if applicable) CC: PET/CT TUMOR BASE Observed: 10/15/2017 Status: F Source: GIANNA -THIGH SUBS 2:06 PM [facility] REPOSITORY [facility] Imaging Services [address] [place] [address] PET/CT Tumor Base -Thigh Subs MR#: [id number] Acct: [id number] Name: TOMY MUNSON Rep #: [id number] : 1955 M 61 From: Ron Pat DO PCP: ROYCE Montero Status: REG CLI Study: PET/CT Tumor Base -Thigh Subs Date of Exam: 10/16/17 Exam# [id number] Ordering Dr: Nino Leigh MD EXAMINATION: FDG PET CT INDICATIONS: A 61-year-old male with reported history of primary head and neck and lung carcinoma presenting for restaging examination. COMPARISON EXAMINATION: Prior FDG PET study dated 09/30/16. INDEX LESION SIZE SUV INTERPRETATION PERSISTENT and NEW: Left mid posterolateral hemithorax pulmonary parenchyma, left lower posterior lung zone 8.1 cm x 4.5 cm (frame 150) compared to 11.5 mm, 09/30/16 12.7 compared to 2.9, 09/30/16 Fulfills quantitative criteria for viable neoplasm, interim metabolic progression NEW: Left thoracic perihilum, precarinal posterior mediastinum 51.9 mm x 48.2 mm 14.3 Fulfills quantitative criteria for viable neoplasm PREVIOUS: Left mid posterolateral hemithorax, left lower lobe, laryngeal structures Demonstrate metabolic resolution on the current examination TECHNIQUE: Following the intravenous administration of 14.84 mCi of F-18 deoxyglucose via the right antecubital fossa, multiplanar image acquisitions of the neck, chest, abdomen and pelvis to level of mid thigh, obtained at one hour post radiopharmaceutical administration contemporaneously interpreted with the current CT of the neck, chest, abdomen and pelvis to level of mid thigh, dated 10/16/17 via coregistration and prior FDG PET study dated 09/30/16 reveal: SERUM GLUCOSE LEVEL: 116 mg/dl. HEIGHT: 68 inches. WEIGHT: 130 lbs. FINDINGS: 1. Persistent and newly defined increased glucose concentration is manifest in the left mid-lower posterior, posterolateral hemithorax pulmonary parenchyma. The calculated maximum standard uptake value is 12.7 compared to 2.9 defined on the FDG PET study dated 09/30/16. The maximal axial diameter of the corresponding metabolic, morphologic abnormality on review of CT of the thorax dated 10/16/17 is 8.1 cm (transverse) x 4.5 cm (AP). 2. Newly defined increased glucose concentration is manifest in the left thoracic perihilum and subcarinal mediastinum, precarinal posterior mediastinum, retroesophageal in location generating a calculated maximum standard uptake value of 14.3. The maximal axial diameter of the largest metabolic, morphologic abnormality on review of CT of the thorax dated 10/16/17 is 51.9 mm (transverse) x 48.2 mm (AP). 3. Normal physiologic distribution of the radiopharmaceutical is apparent in the hepatic (1.5) and splenic parenchyma, both renal units, bladder and visualized intestinal tract. There is uniform distribution of the radiopharmaceutical concentration compared on the cerebellar hemispheres and cerebral cortex. Diffuse intestinal tract activity is noted throughout all four quadrants of the abdominal-pelvic retroperitoneum, mesentery consistent with normal physiologic distribution of the radiopharmaceutical. Prominent glucose metabolism is manifest within the oral cavity without definitive soft tissue abnormalities noted on review of CT of the head and neck dated 10/16/17. There is prominent glucose metabolism observed in the right-left atrial and ventricular myocardium. The previously identified left mid posterolateral hemithorax pulmonary parenchyma, left lower lobe, as well as laryngeal structure hypermetabolic foci noted on the FDG PET study dated 09/30/16 are not apparent on the current examination. Pertinent CT findings are as follows. CHEST: Bvtj-R-Mmzl-MediPort placement is noted. Atherosclerotic calcification is defined in the thoracic aorta without evidence of dilatation, aneurysm formation. Coronary arterial calcification is observed. There are no parenchymal densities-nodules in noted the right-left hemithorax manifesting quantitatively significant increased glucose metabolism. Interstitial changes defined in the left mid-lower posterior lung zone demonstrate no evidence of facilitated glucose metabolism. A left hemithorax pleural effusion demonstrates no evidence of facilitated glucose metabolism. ABDOMEN AND PELVIS: Atherosclerotic calcification is defined in the abdominal aorta without evidence of dilatation, aneurysm formation. Pelvic arterial calcification is observed. Dystrophic calcification is manifest within the prostate gland without evidence of quantitatively significant enhanced glucose metabolism. Right-left inguinal soft tissue densities with fatty hilus formation are non-glucose avid. SKELETAL: Degenerative changes defined in the cervical, thoracic and lumbar spine demonstrate no evidence for glucose hypermetabolism. PET/PET/CT Tumor Base -Thigh Subs IMPRESSION: 1. ABNORMAL EXAMINATION INDICATIVE OF MALIGNANT VIABLE NEOPLASM. 2. Redefined and newly apparent increased glucose metabolism manifest in the left hemithorax pulmonary parenchyma fulfills quantitative criteria for viable neoplasm. (Rose et al, Annals of Internal Medicine, 138:724, 2003). 3. Facilitated radiopharmaceutical concentration noted in the precarinal posterior mediastinum and left thoracic perihilum fulfills quantitative criteria for viable neoplasm. (Ximena silva al, Journal of Clinical Oncology 16:2142, 1998). 4. There is interim metabolic resolution of the previously identified left lower lobe pulmonary parenchymal, as well as laryngeal structure hypermetabolic abnormalities. 5. Overall, compared to the prior FDG PET study dated 09/30/16, there is apparent current expression of defined viable neoplastic disease within the context of the left lower hemithorax pulmonary parenchyma, as well as left thoracic perihilum, precarinal posterior mediastinum. Electronic Signature Ron Pat D.O. Electronically Signed: Ron Pat DO at 23:50 EDT Tel , Service support , CC: ROYCE Sarmiento; Nino Leigh MD [employer] Driver: Signed BRAIN W/WO CONTRAST Observed: 10/14/2017 Status: F Source: GIANNA 4:41 PM [facility] REPOSITORY [facility] Imaging Services [facility] [place] [address] Brain W/WO Contrast MR#: [id number] Acct: [id number] Name: TOMY MUNSON Rep #: [id number] : 1955 M 61 From: Blanca Davila MD PCP: ROYCE Montero Status: REG CLI Study: Brain W/WO Contrast Date of Exam: 10/14/17 Exam# [id number] Ordering Dr: Nino Leigh MD MR Brain WO/W Contrast INDICATION: New Lung Ca diagnosis. No complaints from patient COMPARISON: None TECHNIQUE: Multiplanar multisequence MRI examination of the brain without and with IV contrast. 6 mL of Gadavist given intravenously. FINDINGS: There is no evidence of restricted diffusion. The ventricular system is normal in size. Cortical sulci and basal cisterns are well seen. Minimal periventricular and few patchy subcortical T2/FLAIR signal hyperintensities are seen, compatible with very mild early chronic ischemic microvascular white matter changes. There is no evidence of parenchymal hemorrhage, mass effect, midline shift, or abnormal extra-axial collection. After contrast administration, there is no abnormal enhancement identified. Flow voids of the [place] vascularity are present. Paranasal sinuses and mastoid air cells are clear. MRI/Brain W/WO Contrast IMPRESSION: No evidence of intracranial metastatic disease. Minimal chronic ischemic microvascular white matter changes, otherwise unremarkable study. at 2329 Reported and signed by: Blanca Davila MD Electronically Signed: Blanca Davila MD at 23:27 EDT Tel , Service support , CC: ROYCE Sarmiento; Nino Leigh MD [employer] Driver: Signed ONCOLOGY VISIT REPORT Observed: 10/06/2017 Status: F Source: [place] 4:54 PM [facility] REPOSITORY [facility] [address] [place] [address] OFFICE VISIT Date of Service: 10/06/17 1615 MR#: [id number] Acct: [id number] Name: TOMY MUNSON Rep #: [id number] : 1955 From: Nino Leigh MD Age/Sex: 61/M Location: [facility] Status: Signed Subjective - Date of Service Date of Service:: 10/06/17 - Chief Complaint F/u for biopsy results. - History of Present Illness Mr. 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 He was treated with concurrent chemotherapy and Radiation. He received 3 cycles of Cisplatin 100mg/m2 from 07/04/2015-08/09/2015. He had a PET/CT done on 11/30/2015 which showed no hypermetabolic activity. PET/CT on 09/30/2016 demonstrated hypermetabolic activity within the left lower lobe and at the level of the laryngeal structures. Underwent biopsies of larynx on 11/15/16 under the care of Dr. Ascencio, pathology of which were negative. Had CT guided bx of LLL nodule on 01/02/[address] scan of chest on 09/16/2017 showed increasing Left lower lobe mass and new Left hilar mass. He was referred for EBUS + biopsy. He had it done on 09/26/2017 and comes for follow up. - Past Medical/Social History Past Medical History Past Medical History: Anemia Other Past Medical History: Hyponatremia Hypothyroidism Dysphagia Hypernatremia Lymphadenitis Measles Mumps Chicken Pox Other Cancer History: Laryngeal Past Surgical History Surgical: Hernia repair Other Surgical History: Left Wrist surgery Peg Tube Family History Paternal Past Medical History: Heart disease Maternal Past Medical History: Unknown Social History Social History: No changes Smoking Status Former smoker Review of Systems Constitutional:: Denies: Fever, Sweats, Weight loss, Appetite change, Chills Cardiovascular:: Denies: Chest pain, Palpitations, Dyspnea on exertion, Orthopnea, PND, Shortness of breath Respiratory: Denies: Cough, Hemoptysis, Shortness of Breath, Wheezing Gastrointestinal:: Denies: Abdominal pain, Nausea, Vomiting, Diarrhea, Constipation, Hematochezia Genitourinary: Denies: Dysuria, Hematuria, 15, Flank pain Musculoskeletal:: Denies: Back pain, Myalgia, Arthralgia Skin: Denies: Rash, Skin Changes, Wounds Neurological:: Denies: Headache, Dizziness, Visual changes, Tinnitus, Hearing loss Psychiatric: Denies: Anxiety, Depression, Homicidal Ideations, Suicidal Ideations Vital Signs Height 5 ft 8 in Weight: 61.235 kg Weight in Pounds 135.0 lbs Pulse Ox 100 - Physical Exam General: Alert, Oriented x3, No apparent distress Abdomen:: Soft, - - + peg tube. Pathology Data: 09/26/2017 E bus plus biopsy left hilar mass mixed necrotic inflammatory cells suspicious of squamous cell carcinoma. P 16 negative TTF-1 negative CK 7 positive. Assessment and Plan Laryngeal CA stage TAWNY, S/P Chemoradiation therapy. Left lung nodule which has increased slightly, CT guided biopsy on January 02, 2017 showed benign tissue. New left lung mass, biopsy shows squamous cell carcinoma. This could be metastatic disease vs new lung primary. Needs restaging with PET/CT. Does not want to consider therapy till after . Plan is to obtain PET/CT and MRI brain to complete staging work up. Return to clinic 3 wks. Medications: Prescriptions This Visit Medication Instructions Recorded Levothyroxine [Synthroid] 150 mcg GT DAILY 08/14/16 Primary Care Provider: ROYCE Montero Referring Provider: - Problem List (1) Pulmonary nodule, left Status: Chronic (2) History of laryngeal cancer Status: Chronic Code Visit Office Visits / Consults: 16025 OV L4 Est 10/06/17 1654 <Electronically signed by Nino Leigh MD> Date Nino Leigh MD Cosigner Signature: Date (if applicable) CC: PULMONARY VISIT REPORT Observed: 10/02/2017 Status: F Source: BEE[place] 7:42 AM [facility] REPOSITORY [facility] [address] [place] [address] OFFICE VISIT Date of Service: 10/02/17 MR#: [id number] Acct: [id number] Name: TOMY MUNSON Rep #: [id number] : 1955 Provider: Carlos Robles D.O. Age/Sex: 61/M [place] [facility] Status: Signed Assessment AND Plan 1. Hilar mass R91.8 Plan The patient recently underwent an EBUS procedure with TBNA and EBBx obtained on the patient's left hilar mass. Pathology results were consistent with non- small cell carcinoma, favor squamous cell. The pathology results were personally reviewed with the patient and his son at today's office visit. Options for treatment moving forward will need to be discussed with the patient's primary oncologist, Dr. Leigh. If the patient does not elect for any form of treatment, there is high probability that the mass, which is already nearly completely obstructing the left lower lobe takeoff, will likely continue to progress and eventually cause distal airway collapse due to obstruction. If this occurs, the patient may be a candidate for referral to interventional pulmonology at the [facility] for potential tumor debulking and stent placement. I will place a call to the office of Dr. Leigh today to ensure that the patient has a follow-up appointment scheduled with him as soon as possible. Plan Detail Follow Up As Scheduled in October HPI Comments Details: The patient is a 61-year-old male who presents to the clinic today in referral for evaluation of a lung mass. The patient's son is present at today's office visit. 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 As part of the patient's routine follow-up a PET CT was completed in September 2016 which revealed hypermetabolic activity within the left lower lobe and within the laryngeal structures. The patient underwent biopsies of his larynx in October 2016 which were negative. He also had a CT- guided lung biopsy completed of the left lower lobe lung nodule in December 2016 which was also negative. He then followed up with Dr. Leigh of oncology on September 18, 2017, after having undergone a follow-up chest CT with contrast, dated September 16. That imaging study demonstrated increased size in the left lower lobe lung nodule, along with a new infrahilar mass, which appeared to cause compression/obstruction of the left lower lobe mainstem bronchus. However, the distal lung remains aerated indicating that the obstruction was not complete. The patient reports a history of smoking that includes 2 packs per day 20 years, having quit completely in 2014. He reports no significant shortness of breath, chest tightness or wheezing. He currently has a PEG tube in place that he receives his nutrition through. On September 26, 2017, the patient underwent EBUS with TBNA of the identified left hilar mass and EBBx of the endobronchial lesion identified. Pathology was consistent with moderately differentiated non-small cell carcinoma, favor squamous cell carcinoma. Evaluation of the right-sided lymph node stations was largely unremarkable. The subcarinal region was clear of significant adenopathy. The upper and lower paratracheal regions were unable to be evaluated due to the presence of an endotracheal tube. Intake Vital Signs10/02/17 Height 5 ft 8 in 10/02/17 Weight: 131 lb Intake Visit Reasons: EBUS RESULTS Chief Complaint: F/u for CT results. Allergies Iodinated Contrast- Oral and IV Dye [CT] Allergy (Mild, Verified 09/23/17 09:28) Rash Medications Levothyroxine [Synthroid] 150 mcg GT DAILY 08/14/16 [History Confirmed 09/23/17] PFS Medical History Anemia (Acute) Chicken pox (Acute) Dysphagia (Acute) Hypernatremia (Acute) Hyponatremia (Acute) Hypothyroidism (Acute) LEFT WRIST SURGERY (Acute) Laryngeal cancer (Acute) Lymphadenitis (Acute) Measles (Acute) Mumps (Acute) Status post insertion of percutaneous endoscopic gastrostomy (PEG) tube (Acute) Surgical History History of hernia repair (Acute) Family History Father Heart disease Social History Smoking Status: Former smoker quit date: 05/19/14 pack-years: 30 second hand exposure: No alcohol intake: never substance use type: does not use Review of Systems Const CONSTITUTIONAL: Negative anorexia, body ache, chills, daytime sleepiness, fever(s), night sweats, oral thrush, stops breathing during sleep, weight loss, sleeping in chair, fatigue, weight loss, weight gain, frequent colds, seasonal allergies, other, headache(s) or orthopnea EETM Ear Nose Throat Mouth: Positive hearing normal; negative hard of hearing, hoarseness, dry mouth in morning, change in vision, itchy eyes, eye pain, swallowing Difficulty, ear pain, nose bleed, headache(s), mouth pain, nasal congestion, nasal discharge, post nasal drip, sinus pain, sinus pressure, sore throat or other Cardio Cardiovascular: Negative chest pain, chest pain at rest, chest pain with activity, irregular heart rhythm, edema, shortness of breath when lying down, palpitations, murmur or other Resp Respiratory: Positive as per HPI; negative shortness of breath, pain with cough, wheezing, chest congestion, cough, chest tightness, pain on inspiration, inhalers, increase use of rescue inhalers, snoring, apnea or other Gastro Gastrointestional: Negative bloody stools, change in appetite, difficulty swallowing, reflux, hematemesis, melena stool, loose stool, constipation or other Genitourinary: Negative blood in urine, nocturia, pain with urination or other Musc Musculoskeletal: Negative body pain, back pain, neck pain or other Skin/Breast Skin/Breast: Negative dry skin, itching, rash, unusual bruising, breast lump or other Neuro Neurological: Negative restless legs, confusion, weakness or other Psych Psychocological: Negative abnormal sleep pattern, anxiety, thoughts of hurting self/others, hopelessness or other Lymph Lymphatic: Negative easy bleeding, easy bruising, swollen lymph nodes or other Exam Const Constitutional: Positive conversant, cooperative, in no acute respiratory distress, well developed, well nourished, good hygiene, thin and cachectic Head Head: Positive normocephalic and atraumatic; negative cyanosis of lips/distal nose Eyes Eye: Positive clear conjunctiva; negative nystagmus or scleral abnormality Ears Ear: Positive hearing normal and external ears normal; negative hard of hearing Nose Nose: Positive external nose normal; negative epistaxis Mouth Mouth: Positive oral mucosae normal and posterior oropharynx is adequate; negative no lesions or post nasal drip Neck Neck: Positive normal visual inspection and trachea midline; negative lymphadenopathy Chest Wall Chest: Positive symmetric chest movement Normal AP diameter. Resp lung sounds: Positive diminished diminished: Positive bialteral; negative wheezes, rhonchi or rales Cardio Cardiac: Positive regular rate, regular rhythm, S1 normal and S2 normal; negative rub, gallop or murmur GI GI: Positive normal bowel sounds Soft without distention. +PEG tube Genitourinary: Positive deferred Musc Musculoskeletal: Positive steady gait Skin Pulmonary Skin Exam: Positive intact; negative lesion, ulcers, dermal atrophy or rash Pulses Pulse: Yes Pedal pulses present: Extremities Extremities: No clubbing, No cyanosis, No edema Neuro Neurologic: Yes conversant, Yes no focal neuro deficits, Yes cooperative Lymph Lymphatic: No lymphadenopathy Psych Appearance: Positive grossly normal Mental Status: Positive mental status grossly normal Mood: Positive congruent mood Affect: Positive normal affect Coding Level of Care Code Off vis,est,level 3 Diagnoses Hilar mass R91.8 10/02/17 0742 <Electronically signed by Carlos Robles DO> Date Carlos Robles DO Cosigner Signature: Date (if applicable) CC: ROYCE Sarmiento; Nino Leigh MD OPERATIVE REPORT Observed: 09/26/2017 Status: F Source: [place] 2:32 PM [facility] REPOSITORY [facility] Medical Records Department [address] [facility] [place] [address] Operative Report 09/26/17 1420 MR#: [id number] Acct: [id number] Name: TOMY MUNSON Rep #: [id number] : 1955 61 From: Carlos Robles DO PCP: ROYCE Montero Status: [facility] Location: [place] [address] Operative Report Date of Procedure: 09/26/17 BRONCHOSCOPY (EBUS) PROCEDURE REPORT DATE OF SERVICE: September 26, 2017 BRIEF HISTORY: 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 As part of the patient's routine follow-up a PET CT was completed in September 2016 which revealed hypermetabolic activity within the left lower lobe and within the laryngeal structures. The patient underwent biopsies of his larynx in October 2016 which were negative. He also had a CT- guided lung biopsy completed of the left lower lobe lung nodule in December 2016 which was also negative. He then followed up with Dr. Leigh of oncology on September 18, 2017, after having undergone a follow-up chest CT with contrast, dated September 16. That imaging study demonstrated increased size in the left lower lobe lung nodule, along with a new infrahilar mass, which appeared to cause compression/obstruction of the left lower lobe mainstem bronchus. Therefore, the patient was referred to undergo bronchoscopy in order to obtain tissue biopsies. PROCEDURE: Bronchoscopy with endoscopic endobronchial ultrasound (EBUS), transbronchial needle aspiration, endobronchial biopsies INDICATION: Left hilar mass PHYSICIAN: Carlos Robles DO ANESTHETIC: This procedure was completed under the supervision of anesthesia. Please refer to their documentation accordingly. COMPLICATIONS: No immediate complications noted. DESCRIPTION OF PROCEDURE: A history and physical has been performed. Please see outpatient pulmonary clinic note. The patient's medications and allergies have been reviewed. The risks and benefits of the procedure and sedation options and risks were discussed with the patient at length. All questions were answered and informed consent was obtained. The patient's identification and proposed procedure were verified prior to the procedure by the physician. ASA GRADE ASSESSMENT: II After obtaining informed consent, the bronchoscope was introduced through the mouth, via the endotracheal tube and advanced to the tracheal bronchial tree bilaterally. The procedure was accomplished without difficulty. The patient tolerated the procedure well. FINDINGS: The trachea was of normal caliber. The carroll is sharp. The tracheal bronchial trees of the left and right lungs were examined to at least the first subsegmental level. The right tracheal bronchial tree was grossly normal in appearance. There was a large circumferential endobronchial lesion noted at the bifurcation of the left upper and left lower lobes. The lesion appeared to nearly completely obstruct the orifice of the left lower lobe takeoff. Once the airway inspection was completed, the standard bronchoscope was withdrawn and a convex probe endobronchial ultrasound (EBUS) bronchoscope was inserted through the same route. The endobronchial ultrasound endoscope was then utilized to systematically examine the superior/inferior mediastinal and hilar lymph nodes to assist with fine-needle aspiration. In total, 3 transbronchial needle aspirations were completed within the identified left hilar mass. On ultrasound, the mass measured at least 3.5 x 4.5 cm. Rapid on-site evaluation (LOPEZ): Preliminary cytology was suggestive of atypical squamous cells. Final pathology results are pending. Following this, the EBUS endoscope was subsequently withdrawn from the patient's airway through the endotracheal tube. A conventional bronchoscope was then reinserted into the patient's airway, at which time, a total of 4 endobronchial biopsies were obtained from the endobronchial lesion noted at the bifurcation of the left upper and left lower lobes. Following this, cold saline was instilled to assist with hemostasis. Any retained secretions and/or blood was subsequently cleared. The bronchoscope was then withdrawn without complication. The patient was then transferred to the PACU, where they recovered in the usual fashion. IMPRESSION: 1. Large left hilar mass. Transbronchial needle aspiration was completed with preliminary cytology suggestive of atypical squamous cells. 2. Large endobronchial lesion noted at the bifurcation of the left upper and left lower lobes. 4 endobronchial biopsies were completed here. RECOMMENDATIONS: 1. Await final pathology results. 2. Follow-up in the pulmonary medicine clinic as scheduled. Code Visit 9xxxx: Other Procedure See Report - [id number] 09/26/17 1432 <Electronically signed by Carlos Robles DO> Date Carlos Robles DO CC: CAD ENGINEER-C Alfred Sarmiento; Carlos Robles D.O. Signed LUNG, BIOPSY Observed: 09/26/2017 Status: F Source: GIANNA 12:00 AM [facility] REPOSITORY Patient: TOMY MUNSON : 1955 (61/M) Acct Num: [id number] Phys: Carlos Robles D.O. Unit Num: [id number] Loc: EN Specimen: [id number] Received: 09/26/17 1458 Spec Type: LUNG BX TISSUES TISSUES: Lung, NOS COMMENT Please correlate with corresponding EBUS, FNA, cytology ([id number]) with diagnosis of moderately differentiated non-small cell carcinoma, favor squamous cell carcinoma. GROSS DESCRIPTION Received in fixative is one container labeled with the patient's name and designated endobronchial biopsy, endobronchial lesion. The specimen consists of two irregular fragments of britt soft tissue that in aggregate measure 0.4 x 0.2 x 0.1 cm. The specimen is totally submitted in one cassette. / MC:angelia 09/26 TC:5 CPT: 10475 HEADER OPERATION: EBUS with TBNA and endobronchial biopsy PRE-OP DIAGNOSIS: Hilar mass TISSUE SUBMITTED: Endobronchial biopsy, endobronchial lesion LUNG CULTURE RESULTS Date Time Procedure Status Specimen Description 09/26/15 1113 Gram Stain FINAL Gram Stain: Rare Gram positive cocci in clusters MICROSCOPIC DESCRIPTION Slides are reviewed. MICROSCOPIC DIAGNOSIS Endobronchial lesion, endobronchial biopsy: A fragment of necrotic material with atypical squamous cells, suspicious for carcinoma. Fragments of benign bronchial mucosa with chronic inflammation. See comment. MC:angelia 09/29/17 Signed [place] S[place] 09/30/17 <signature on file> Performed By: #### MOUSTAPHA #### [facility] [address] [place], [address] FLUID/WASHING Observed: 09/26/2017 Status: F Source: [place] 12:00 AM [facility] REPOSITORY Patient: TOMY MUNSON : 1955 (61/M) Acct Num: [id number] Phys: Carlos Robles D.O. Unit Num: [id number] Loc: EN Specimen: [id number] Received: 09/26/171456 Spec Type: Fluid TISSUES TISSUES: A. Lung, NOS B. Lung, NOS C. Lung, NOS D. Lung, NOS COMMENT The specimen is evaluated at the time of procedure by Dr. Simental. Immediate evaluation: A. EBUS, FNA, left hilar mass, aspiration #1: Atypical squamous mixed with inflammation. Adequate. Reported to Dr. Robles at 1:55 p.m. B. EBUS, FNA, left hilar mass, aspiration #2: A few atypical squamous cells noted. Reported to Dr. Robles at 2:00 p.m. C. EBUS, FNA, left hilar mass, aspiration #3: Atypical squamous mixed with inflammation. Adequate. Reported to Dr. Robles at 2:00 p.m. D. Immunohistochemistry ([id number]) supports the above diagnosis. CYTOLOGY GROSS A Received labeled with the patient s name, and designated EBUS FNA left hilar mass. The specimen consists of two smears that are submitted for immediate cytologic evaluation (wet read). B - Received labeled with the patient s name, and designated EBUS FNA left hilar mass. The specimen consists of two smears that are submitted for immediate cytologic evaluation (wet read). C - Received labeled with the patient s name, and designated EBUS FNA left hilar mass. The specimen consists of two smears that are submitted for immediate cytologic evaluation (wet read). D - Received labeled with the patient's name and and designated per the requisition as left hilar mass. Submitted for cytology preparation including cell block. / 09/26/17 TC:0 CPT: 35577, 33329, 38465 x2, 96641 CYTOLOGY STUDY Slides are reviewed. DIAGNOSIS CYTOLOGY A. EBUS, left hilar mass, FNA, aspiration #1 (smears): Malignant cells present mixed with necrotic cells and inflammation, suspicious for squamous cell carcinoma. B. EBUS, left hilar mass, FNA, aspiration #2 (smears): A few atypical squamous cells noted, suspicious for carcinoma. C. EBUS, left hilar mass, FNA, aspiration #3 (smears): Malignant cells present mixed with necrotic cells and inflammation, suspicious for squamous cell carcinoma. D. Left hilar mass fluid (cell block): Malignant cells present derived from moderately differentiated non-small cell carcinoma, favor squamous cell carcinoma. See comment. SJ:angelia 09/29/17 HEADER OPERATION: EBUS with TBNA and endobronchial biopsy PRE-OP DIAGNOSIS: Hilar mass TISSUE SUBMITTED: A-C - EBUS FNA left hilar mass, D Left hilar mass fluid for cytology SPUTUM CULTURE RESULTS Date Time Procedure Status Specimen Description 09/26/15 1113 Gram Stain FINAL Gram Stain: Rare Gram positive cocci in clusters Signed [place] S[place] 09/30/17 <signature on file> Performed By: #### PFLU #### [facility] [address] [place] [address]. [place], [place], [address] IMMUNOHISTOCHEMISTRY Observed: 09/26/2017 Status: F Source: [place] 12:00 AM [facility] REPOSITORY Patient: TOMY MUNSON : 1955 (61/M) Acct Num: [id number] Phys: Carlos Robles D.O. Unit Num: [id number] Loc: EN Specimen: [id number] Received: 09/29/17 - 1159 Spec Type: IMMUNO TISSUES TISSUES: D. Lung, NOS SPECIMEN INFORMATION: Tissue Source: D Left hilar mass fluid Clinical Info: Hilar mass Specimen Number: [id number] CPT code: 67391, 38526 x9 METHODOLOGY: Deparaffinized sections of prefer/formalin-fixed tissue or PAP/DQ stained slides are incubated with monoclonal/polyclonal antibodies/oligonucleotide probes. Localization is made via biotin free immunoperoxidase method. Appropriate controls are performed and reacted as expected. Results on target cell population are indicated in the following table: RESULTS: ANTIBODY / CLONE RESULT Block D AE1-3 (AE1/AE3/PCK26) positive CK7 (OV-TL12/30) positive, weak CK8 (28lusiS23) positive, weak CK20 (KS20.8) negative CK5-6 (D5 AND 1684) positive P16 (E6H4) negative Ki-67 (30-9) positive, moderate P53 (DO-7) positive, moderate P40 (BC28) positive TTF-1 (8G7G3/1) negative These tests were developed and their performance characteristics determined by [facility]. They may not have been cleared or approved by the U.S. Food and Drug Administration. The FDA has determined that such clearance or approval is not necessary. INTERPRETATION: D. Left hilar mass fluid: Moderately differentiated non- small cell carcinoma, favor squamous cell carcinoma. SJ:angelia 09/30/17 PHYSICIAN AND INSTITUTION [address] [address] Signed [place] S[place] 09/30/17 <signature on file> Performed By: #### PIMM #### [facility] [address] [place] [address]. [place], [place], [id number] CBC-COMPLETE BLOOD CNT Collected: 09/23/2017 Status: F Source: [place] NO DIFF 12:26 PM [facility] REPOSITORY TYPE CODE TESTS RESULT OUT OF RANGE REFERENCE UNITS LAB L100.1000 4.4-11.0 K/mm3 Normal WBC 5.1 LAB L100.1200 4.6-6.2 M/mm3 Low RBC 3.81 LAB L100.1300 13.0-16.5 g/dl Low HGB 12.8 LAB L100.1400 40-54 % Low HCT 38.3 LAB L100.1500 80-94 fL High MCV 100.5 LAB L100.1600 27.0-32.0 pg High MCH 33.6 LAB L100.1700 32-36 g/gl Normal MCHC 33.4 LAB L100.1810 11.6-14.6 % Normal RDW CV 13.4 LAB L100.1820 35.1-43.9 fl High RDW SD 47.7 LAB L100.1900 150-450 K/mm3 Normal PLT 255 LAB L100.2000 6.2-12.0 fl Normal MPV 9.5 Performed By: #### L100.0500, L300.3900 #### [facility] [address] [place], [address] PROTHROMBIN TIME W/INR Collected: 09/23/2017 Status: F Source: [place] 12:26 PM [facility] REPOSITORY TYPE CODE TESTS RESULT OUT OF RANGE REFERENCE UNITS LAB L300.4150 11.7-14.9 SECONDS Normal PROTIME 13.1 LAB L300.4200 Normal INR 1.0 Performed By: #### L100.0500, L300.3900 #### [facility] [address] [place], [address] PULMONARY VISIT REPORT Observed: 09/19/2017 Status: F Source: [place] 10:05 AM [facility] REPOSITORY [facility] [place] [id number] [facility] [address] [place], [place] [address] OFFICE VISIT Date of Service: 09/19/17 MR#: [id number] Acct: [id number] Name: TOMY MUNSON Rep #: [id number] : 1955 Provider: Carlos Robles D.O. Age/Sex: 61/M [place] [facility] Status: Signed Assessment AND Plan 1. Lung mass R91.8 Plan The patient's recent CT scan revealed an enlarging left lower lobe pulmonary nodule along with a new infrahilar mass and likely a component of extrinsic compression versus endobronchial lesion involving the left lower lobe takeoff. Following a discussion regarding the patient's CT findings, along with an explanation of the risks and benefits, the patient has agreed to proceed with bronchoscopy/EBUS. The patient will need to obtain a CBC and PT/INR prior to the procedure. He is not currently on any blood thinners and/or aspirin containing products the need to be held. He will be scheduled for FridaySeptember 26. Orders have been placed accordingly. Orders Orders: 2. History of laryngeal cancer Z85.21 Plan The patient was initially diagnosed with supraglottic laryngeal cancer in June 2015 and was treated with concurrent chemotherapy and radiation. He follows with Dr. Leigh of Oncology accordingly. 3. Tobacco dependence in remission F17.201 Plan Ongoing tobacco cessation advisable. Plan Detail Other Orders Orders: Follow Up 1 Month (DMB) HPI HPI Comments Details: The patient is a 61-year-old male who presents to the clinic today in referral for evaluation of a lung mass. 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 As part of the patient's routine follow-up a PET CT was completed in September 2016 which revealed hypermetabolic activity within the left lower lobe and within the laryngeal structures. The patient underwent biopsies of his larynx in October 2016 which were negative. He also had a CT- guided lung biopsy completed of the left lower lobe lung nodule in December 2016 which was also negative. He then followed up with Dr. Leigh of oncology on September 18, 2017, after having undergone a follow-up chest CT with contrast, dated September 16. That imaging study demonstrated increased size in the left lower lobe lung nodule, along with a new infrahilar mass, which appeared to cause compression/obstruction of the left lower lobe mainstem bronchus. However, the distal lung remains aerated indicating that the obstruction was not complete. The patient reports a history of smoking that includes 2 packs per day 20 years, having quit completely in 2014. He reports no significant shortness of breath, chest tightness or wheezing. He currently has a PEG tube in place that he receives his nutrition through. The patient does not currently utilize any blood thinners and/or aspirin containing products. The patient's CT scan findings were personally discussed with him at today's office visit. I explained to him the options for moving forward including proceeding with direct tissue biopsy/mediastinal lymph node sampling via EBUS. Following a discussion regarding the risks and benefits, the patient is in agreement to proceed with the procedure accordingly. Intake Vital Signs09/19/17 Height 5 ft 8 in 09/19/17 Weight: 134 lb Intake Visit Reasons: Lung Mass Chief Complaint: F/u for CT results. Director Of Logistics Required: No Accompanied by: Self Is patient in pain?: No Allergies Iodinated Contrast- Oral and IV Dye [CT] Allergy (Mild, Verified 09/19/17 09:37) Rash Medications Levothyroxine [Synthroid] 0.3 mg GT DAILY 08/14/16 [History Confirmed 09/19/17] [facility] Medical History Anemia (Acute) Chicken pox (Acute) Dysphagia (Acute) Hypernatremia (Acute) Hyponatremia (Acute) Hypothyroidism (Acute) LEFT WRIST SURGERY (Acute) Laryngeal cancer (Acute) Lymphadenitis (Acute) Measles (Acute) Mumps (Acute) Status post insertion of percutaneous endoscopic gastrostomy (PEG) tube (Acute) Surgical History History of hernia repair (Acute) Family History Father Heart disease Social History Smoking Status: Former smoker quit date: 05/19/14 pack-years: 30 second hand exposure: No alcohol intake: never substance use type: does not use Review of Systems Const CONSTITUTIONAL: Positive fatigue; negative anorexia, body ache, chills, daytime sleepiness, fever(s), night sweats, oral thrush, stops breathing during sleep, weight loss, sleeping in chair, weight loss, weight gain, frequent colds, seasonal allergies, other, headache(s) or orthopnea EETM Ear Nose Throat Mouth: Positive hearing normal; negative hard of hearing, hoarseness, dry mouth in morning, change in vision, itchy eyes, eye pain, swallowing Difficulty, ear pain, nose bleed, headache(s), mouth pain, nasal congestion, nasal discharge, post nasal drip, sinus pain, sinus pressure, sore throat or other Cardio Cardiovascular: Negative chest pain, chest pain at rest, chest pain with activity, irregular heart rhythm, edema, shortness of breath when lying down, palpitations, murmur or other Resp Respiratory: Positive as per HPI; negative shortness of breath, pain with cough, wheezing, chest congestion, cough, chest tightness, pain on inspiration, inhalers, increase use of rescue inhalers, snoring, apnea or other Gastro Gastrointestional: Negative bloody stools, change in appetite, difficulty swallowing, reflux, hematemesis, melena stool, loose stool, constipation or other Genitourinary: Negative blood in urine, nocturia, pain with urination or other Musc Musculoskeletal: Negative body pain, back pain, neck pain or other Skin/Breast Skin/Breast: Negative dry skin, itching, rash, unusual bruising, breast lump or other Neuro Neurological: Negative restless legs, confusion, weakness or other Psych Psychocological: Positive anxiety; negative abnormal sleep pattern, thoughts of hurting self/others, hopelessness or other Lymph Lymphatic: Negative easy bleeding, easy bruising, swollen lymph nodes or other Exam Const Constitutional: Positive conversant, cooperative, in no acute respiratory distress, well developed, good hygiene and thin Head Head: Positive normocephalic and atraumatic; negative cyanosis of lips/distal nose Eyes Eye: Positive clear conjunctiva; negative nystagmus or scleral abnormality Ears Ear: Positive hearing normal and external ears normal; negative hard of hearing Nose Nose: Positive external nose normal; negative epistaxis Mouth Mouth: Positive oral mucosae normal and posterior oropharynx is adequate; negative no lesions or post nasal drip Mallampati Score: I: Mallampati Score Neck Neck: Positive normal visual inspection and trachea midline; negative lymphadenopathy Chest Wall Chest: Positive symmetric chest movement Normal AP diameter. Resp lung sounds: Positive diminished diminished: Positive bialteral; negative wheezes, rhonchi or rales Cardio Cardiac: Positive regular rate, regular rhythm, S1 normal and S2 normal; negative rub, gallop or murmur GI GI: Positive normal bowel sounds Soft without distention. PEG tube in place Genitourinary: Positive deferred [facility] Musculoskeletal: Positive steady gait Skin Pulmonary Skin Exam: Positive intact; negative lesion, ulcers, dermal atrophy or rash Pulses Pulse: Yes Pedal pulses present: Extremities Extremities: No clubbing, No cyanosis, No edema Neuro Neurologic: Yes conversant, Yes no focal neuro deficits, Yes cooperative Lymph Lymphatic: No lymphadenopathy Psych Appearance: Positive grossly normal Mental Status: Positive mental status grossly normal Mood: Positive congruent mood Affect: Positive normal affect Coding Level of Care Code Off vis,new,level 5 Diagnoses Lung mass R91.8 History of laryngeal cancer Z85.21 Tobacco dependence in remission F17.201 09/19/17 1005 <Electronically signed by Carlos Brown DO> Date Carlos Halligneliza Signature: Date (if applicable) CC: CAD ENGINEER-Haja Sarmiento; Nino Leigh MD ONCOLOGY VISIT REPORT Observed: 09/18/2017 Status: F Source: GIANNA 10:09 AM [facility] REPOSITORY [facility] [place] [address] OFFICE VISIT Date of Service: 09/18/17 1002 MR#: [id number] Acct: [id number] Name: TOMY MUNSON Rep #: [id number] : 1955 From: Nino Leigh MD Age/Sex: 61/M Location: [facility] Status: Signed Subjective - Date of Service Date of Service:: 09/18/17 - Chief Complaint F/u for CT results. - History of Present Illness Mr. 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 He was treated with concurrent chemotherapy and Radiation. He received 3 cycles of Cisplatin 100mg/m2 from 07/04/2015-08/09/2015. He had a PET/CT done on 11/30/2015 which showed no hypermetabolic activity. PET/CT on 09/30/2016 demonstrated hypermetabolic activity within the left lower lobe and at the level of the laryngeal structures. Underwent biopsies of larynx on 11/15/16 under the care of Dr. Ascencio, pathology of which were negative. Had CT guided bx of LLL nodule on 01/02/2017 which was negative. He elected observation, comes in for follow up after CT scan of chest. - Past Medical/Social History Past Medical History Past Medical History: Anemia Other Past Medical History: Hyponatremia Hypothyroidism Dysphagia Hypernatremia Lymphadenitis Measles Mumps Chicken Pox Other Cancer History: Laryngeal Past Surgical History Surgical: Hernia repair Other Surgical History: Left Wrist surgery Peg Tube Family History Paternal Past Medical History: Heart disease Maternal Past Medical History: Unknown Social History Social History: No changes Smoking Status Former smoker Review of Systems Constitutional:: Denies: Fever, Sweats, Weight loss, Appetite change, Chills Cardiovascular:: Denies: Chest pain, Palpitations, Dyspnea on exertion, Orthopnea, PND, Shortness of breath Respiratory: Denies: Cough, Hemoptysis, Shortness of Breath, Wheezing Gastrointestinal:: Denies: Abdominal pain, Nausea, Vomiting, Diarrhea, Constipation, Hematochezia Genitourinary: Denies: Dysuria, Hematuria, 15, Flank pain Musculoskeletal:: Denies: Back pain, Myalgia, Arthralgia Skin: Denies: Rash, Skin Changes, Wounds Neurological:: Denies: Headache, Dizziness, Visual changes, Tinnitus, Hearing loss Psychiatric: Denies: Anxiety, Depression, Homicidal Ideations, Suicidal Ideations Vital Signs Height 5 ft 8 in Weight: 60.781 kg Weight in Pounds 134.0 lbs Pulse Ox 98 - Physical Exam General: Alert, Oriented x3, No apparent distress HEENT: Atraumatic, PERRLA, EOMI, Normocephalic Oropharynx:: Dry mucosa, - - edentulous Cardiac:: Regular rate, Regular rhythm, Normal S1, Normal S2. Negative for: Murmur Lungs: Clear to auscultation, Excusion symmetrical. Negative for: Rhonchi, Wheezes Lymphatics:: Negative for: Cervical lymphadenopathy, Supraclavicular lymphadenopathy, Axillary lymphadenopathy Diagnostic Data: 09/16/2017 CT reviewed, increasing Left lower mass, new left hilar mass. Assessment and Plan Laryngeal CA stage TAWNY, S/P Chemoradiation therapy. Left lung nodule which has increased slightly, CT guided biopsy on January 02, 2017 showed benign tissue. New L hilar mass. Plan is to obtain Pulmonary consult for EBUS and biopsy. Return to clinic 2 wks. Medications: Prescriptions This Visit Medication Instructions Recorded Levothyroxine [Synthroid] 0.3 mg GT DAILY 08/14/16 Primary Care Provider: ROYCE Montero Referring Provider: - Problem List (1) Pulmonary nodule, left Status: Chronic (2) History of laryngeal cancer Status: Chronic 09/18/17 1009 <Electronically signed by Nino Leigh MD> Date Nino Leigh MD [facility] Signature: Date (if applicable) CC: CREATININE FINGERSTICK Collected: 09/16/2017 Status: F Source: BEECHER 6:57 AM [facility] REPOSITORY TYPE CODE TESTS RESULT OUT OF RANGE REFERENCE UNITS LAB L9100.0210 0.70-1.30 mg/dL Low CREATININE WB < 0.6 LAB L9100.0220 >60 mL/min EGFR WB Normal > 60.0000 Performed By: #### L9100.0200 #### [facility] Point of Care [address] [place] [address] CHEST WITH CONTRAST Observed: 09/16/2017 Status: F Source: BEECHER 6:52 AM [facility] REPOSITORY [facility] Imaging Services [address] [place] [address] Chest WITH Contrast MR#: [id number] Acct: [id number] Name: TOMY MUNSON Rep #: [id number] : 1955 M 61 From: Nando Angela MD PCP: ROYCE Montero Status: REG CLI Study: Chest WITH Contrast Date of Exam: 09/16/17 Exam# [id number] Ordering Dr: Nino Leigh MD STUDY: CT CHEST WITH CONTRAST REASON FOR EXAM: Male, 61 years old. Pulmonary nodule- FOLLOW-UP. THROAT CANCER WITH CHEMO AND RADIATION RADIATION DOSAGE (If Supplied By Facility): CTDIvol = ( 10.16 ) mGy, DLP = ( 299.60 ) mGycm TECHNIQUE: Transaxial imaging was performed following intravenous administration of 100 ml of Isovue 300 contrast material. Individualized dose optimization techniques were used for this CT. COMPARISON: None. FINDINGS: The previously described subpleural nodule has increased in size since the previous study now measures 3.5 x 2.5 cm it measured previously 2.4 x 1.2 cm. There is a new left infrahilar mass measures approximately 4.2 x 3.4 cm resulted in complete occlusion of the right lower lobe bronchus with extension in the segmental bronchi of the right lower lobe. There is no demonstrated pleural abnormality. Normal heart and pericardium. Normal mediastinum. Normal hilar regions. Normal enhanced pulmonary arteries. Normal aorta arch and descending thoracic aorta. Normal osseous structures. There is no demonstrated abnormality of the visualized upper abdomen. CT/Chest WITH Contrast IMPRESSION: Findings are consistent with disease progression the previously described metastatic lesion in the left lung lower lobe has increased in size now measures 3.5 x 2.5 cm. There is a new left hilar mass measures 4.2 x 3.4 cm. Electronically Signed: Nando Angela MD at 12:54 EDT Tel , Service support , CC: ROYCE Sarmiento; Nino Leigh MD [employer] Driver: Signed THYROID STIM HORMONE Collected: 08/22/2017 Status: F Source: GIANNA (TSH) 1:26 PM [facility] REPOSITORY TYPE CODE TESTS RESULT OUT OF RANGE REFERENCE UNITS LAB L501.9520 0.358-3.74 uIU/mL Low TSH < 0.01 Performed By: #### L501.9520, L506.0400 #### [facility] [address] [place], [place], [address] T4 FREE DIRECT Collected: 08/22/2017 Status: F Source: GIANNA 1:26 PM [facility] REPOSITORY TYPE CODE TESTS RESULT OUT OF REFERENCE UNITS RANGE LAB L506.0400 0.76-1.46 ng/dL High T4 FREE 1.85 DIRECT Performed By: #### L501.9520, L506.0400 #### [facility] [address] [place], [address] CBC W/DIFF, AUTOMATED Collected: 07/10/2017 Status: F Source: GIANNA 10:52 AM [facility] REPOSITORY Order Comment: Reason for Laboratory Test OV TYPE CODE TESTS RESULT OUT OF RANGE REFERENCE UNITS LAB L100.1000 4.4-11.0 K/mm3 Low WBC 3.8 LAB L100.1200 4.6-6.2 M/mm3 Low RBC 3.82 LAB L100.1300 13.0-16.5 g/dl Normal HGB 13.0 LAB L100.1400 40-54 % Low HCT 38.7 LAB L100.1500 80-94 fL High MCV 101.3 LAB L100.1600 27.0-32.0 pg High MCH 34.0 LAB L100.1700 32-36 g/gl Normal MCHC 33.6 LAB L100.1810 11.6-14.6 % Normal RDW CV 13.9 LAB L100.1820 35.1-43.9 fl High RDW SD 50.2 LAB L100.1900 150-450 K/mm3 Normal PLT 200 LAB L100.2000 6.2-12.0 fl Normal MPV 10.1 LAB L100.2100 47-70 % High NEUT% 76.0 LAB L100.2200 19-41 % Low LY% 8.1 LAB L100.2300 0-10 % Normal MONO% 9.9 LAB L100.2400 0-5 % High EO% 5.2 LAB L100.2500 0-1 % Normal BASO% 0.5 LAB L100.2550 0.0-0.9 % Normal IM GRAN % 0.300 Result Comment: IG% - Immature Granulocytes (promyelocytes, myelocytes and metamyelocytes) > 1% indicates that a LEFT SHIFT is Present. LAB L100.2620 2.0-7.7 X10 3/uL Normal Absolute Neut 2.9 LAB L100.2720 0.83-4.51 X10 3/ul Low Absolute Lymph 0.31 Performed By: #### L100.0100, L500.4050 #### [facility] [address] [place], [address] COMPREHENSIVE METABOLIC Collected: 07/10/2017 Status: F Source: GIANNA ANDREWS 10:52 AM [facility] REPOSITORY Order Comment: Reason for Laboratory Test OV TYPE CODE TESTS RESULT OUT OF RANGE REFERENCE UNITS LAB L501.0100 74-106 mg/dL Normal GLU 98 Result Comment: Please note revised GLUCOSE reference range effective 2017. LAB L501.1000 7-18 mg/dL High BUN 31 LAB L501.1100 0.70-1.30 mg/dL Normal CREAT,SERUM 0.94 Result Comment: The validity of the calculated GFR AND GFRAA in patients over 70 years has not been determined. Clinical correlation is essential. LAB L501.1110 >60 mL/min Normal EST GFR 86 Result Comment: Non- GFR Calc LAB L501.1115 >60 mL/min Normal EST GFR - AA 104 Result Comment: GFR Calc LAB L501.1255 ml/min Normal Estimated CRCL 70.42 LAB L501.1300 10-20 RATIO High BUN/CRE 32.9 LAB L501.1500 6.4-8. g/dL Normal 2 T PROT 7.0 LAB L501.1800 3.2-5. g/dL Normal 0 ALB 3.9 LAB L501.1950 2.2-4. g/dL Normal 2 GLOB 3.1 LAB L501.2000 0.9-2. RATIO Normal 4 A/G 1.3 LAB L501.2200 8.5-10 mg/dL Normal .1 CA 9.3 LAB L501.4100 15-37 U/L Normal AST 16 LAB L501.4305 45-117 U/L Normal ALK P 86 LAB L501.4405 16-61 U/L Normal ALT 31 Result Comment: Please note revised ALT reference range effective 2017. LAB L501.4600 0.20-1.00 mg/dL Normal T BILI 0.40 LAB L501.5300 136-145 mmol/L Normal NA 138 LAB L501.5600 3.5-5.1 mmol/L Normal K 4.3 LAB L501.5900 98-107 mmol/L Normal CL 99 LAB L501.6100 21.0-32.0 mmol/L High CO2 33.0 LAB L501.6200 5-15 Normal GAP 6 Performed By: #### L100.0100, L500.4050 #### [facility] [place], [address] CREATININE FINGERSTICK Collected: 07/07/2017 Status: F Source: BEECHER 6:48 AM [facility] REPOSITORY TYPE CODE TESTS RESULT OUT OF RANGE REFERENCE UNITS LAB L9100.0210 0.70-1.30 mg/dL Low CREATININE WB < 0.6 LAB L9100.0220 >60 mL/min EGFR WB Normal > 60.0000 Performed By: #### L9100.0200 #### [facility] Point of Care [address] [place] [place] [address] CHEST WITH CONTRAST Observed: 07/07/2017 Status: F Source: BEECHER 6:42 AM [facility] REPOSITORY [facility] Imaging Services [address] [place] [address] Chest WITH Contrast MR#: [id number] Acct: [id number] Name: TOMY MUNSON Rep #: [id number] : 1955 M 61 From: Yosef Blevins MD PCP: Alfred Sarmiento CAD ENGINEERWin Status: REG CLI Study: Chest WITH Contrast Date of Exam: 07/07/17 Exam# [id number] Ordering Dr: Nino Leigh MD STUDY: CT CHEST WITH CONTRAST REASON FOR EXAM: Male, 61 years old. History of pulmonary nodule. The patient has a history of a cervical cancer. The patient has a history of radiation chemotherapy. RADIATION DOSAGE (If Supplied By Facility): CTDIvol = ( 8.18 ) mGy, DLP = ( 282.72 ) mGycm TECHNIQUE: Transaxial imaging was performed following intravenous administration of 100 ml of Isovue 300 contrast material. Multiplanar coronal and sagittal images were reformatted. Individualized dose optimization techniques were used for this CT. COMPARISON: Comparison is made with prior study dated April 07, 2017. FINDINGS: A left-sided terry catheter is in situ. Emphysematous changes. There is a lobulated irregular nodular density in the peripheral aspect of the left lower lobe as seen on axial images 73 through 81. It presently measures 2.4 cm x 1.2 cm. This has increased in size as compared to prior study. A faint nodule measuring 5 mm is seen in the anterior aspect of the lingular segment of the left upper lobe anterior to the heart as seen on axial image #99. This may represent a focal area of scarring. Stable emphysematous changes. There is no demonstrated pleural abnormality. Normal heart and pericardium. Prominent left hilar lymph node measuring 2.2 cm. Normal hilar regions. Normal enhanced pulmonary arteries. Normal aorta arch and descending thoracic aorta. Normal osseous structures. A gastrostomy tube is seen within the stomach. CT/Chest WITH Contrast IMPRESSION: Increased size of the nodular density in the peripheral aspect of the left lower lobe. Enlargement of the left hilar lymph node. Electronically Signed: Yosef Blevins MD at 10:40 EST Tel [phone], Service support , CC: Alfred Sarmiento; Nino Leigh MD [employer]: Signed ALLERGIES ALLERGIES DATE TYPE / CODE NAME / CODE REACTION SEVERITY SOURCE 05/05/2018 Drug Iodinated Rash PR [place] Allergy/324214534(S Contrast- [facility] NOM[facility] CT) and IV Hospital Dye/[id number]( Repository RXNORM) 01/09/2018 Drug IODINATED RASH Low Luciano Class/089391073(SNO CONTRAST- [facility] Clinic Other MED CT) AND IV DYE [place] Repository NG/444134965(SNOMED IODINATED [facility]) CONTRAST- [facility] AND IV DYE Repository Miscellaneous No Known Drug Moderate Eder Pomerene Allergy/353340567(S Allergies ([facility]) Modifier) [facility] (Qualifier Repository Value) Drug NO KNOWN Luciano Class/829894651(SNO ALLERGIES Clinic Main MED CT) [place] Repository ENCOUNTERS ENCOUNTERS ADMIT/DISCHARGE ACCOUNT NUMBER ADMITTING ENCOUNTER LOCATION SOURCE CLASS 05/06/2018 [id number] Inpatient [address] [place] [address] Encounter 7ERoom: System [id number]: Repository [id number] 05/05/2018/05/05/20 [id number] Emergency [place] Gianna 18 [facility] ding:ED Repository 04/29/2018 [id number] Ambulatory [facility] Repository 04/24/2018 [id number] Ambulatory [facility] Repository 04/21/2018 [id number] Ambulatory [facility] Repository 04/16/2018 [id number] Ambulatory BMSBuilding: [facility] BMS.CF[facility] Repository 04/16/2018 [id number] Ambulatory [facility] ding:OMD Repository 04/07/2018/04/08/20 [id number] Unknown Inpatient JULIO Tyler [address] MEDICAL Repository CENTERBuildi nRoom: 5410Bed: 01 04/07/2018/04/08/20 [id number] EMILY, Inpatient [address] Other [place] Repository 04/06/2018 [id number] Anu, Ambulatory BMSBuilding: [place] BMS.[facility] Repository 04/06/2018 [id number] Anu, Ambulatory BMSBuilding: [facility] [place] BMS.CF.[facility] Repository 04/06/2018/04/07/20 [id number] Anu, Inpatient [address] ding:VZ8Fqpt Repository : KI735Eeq: 1 04/06/2018 [id number] Ambulatory BMSBuilding: [facility]MS[facility] Repository 03/29/2018 [id number] Ambulatory [facility] ding:NS Repository 03/12/2018 [id number] Ambulatory BMSBuilding: [place] BMS.CF[facility] Repository 03/04/2018/03/08/20 [id number] Ambulatory [address] Main [place] Repository 02/26/2018/03/18/20 [id number] Ambulatory [address] ding:NS Repository 02/26/2018 [id number] Ambulatory BMSBuilding: [place] BMS.CF.[facility] Repository 02/12/2018 [id number] Ambulatory BMSBuilding: [place] BMS.CF.[facility] Repository 02/12/2018 [id number] Ambulatory BMSBuilding: [place] [facility]MS.[facility] Repository 02/12/2018/02/16/20 [id number] Ambulatory [facility] [address] ding:NS Repository 01/22/2018 [id number] Ambulatory BMSBuilding: [place] BMS.CF.[facility] Repository 01/20/2018 [id number] ALFRED SARMIENTO Ambulatory [facility] Repository 01/14/2018 [id number] Ambulatory BMSBuilding: [place] BMS.CF[facility] Repository 01/12/2018/01/14/20 [id number] Aminah Vaz [facility] Repository : NHA271Xie: 1 01/12/2018 [id number] Aminah Vaz Ambulatory BMSBuilding: [place] Mar[place] BMS.[facility] Repository 01/12/2018 [id number] Aminah Vaz Ambulatory BMSBuilding: [place] BMS.[facility] Repository 01/12/2018 [id number] Aminah Vaz Ambulatory BMSBuilding: [place] BMS.CF.[facility] Repository 01/12/2018 [id number] Ambulatory BMSBuilding: [facility] Repository 01/09/2018/01/10/20 [id number] Ambulatory BMSBuilding: [place] 18 BMS.[facility] Repository 01/08/2018 [id number] Ambulatory BMSBuilding: [place] BMS.CF.[facility] Repository 01/07/2018 [id number] Ambulatory BMSBuilding: [place] BMS.CF.[facility] Repository 01/01/2018 [id number] Ambulatory BMSBuilding: [place] BMS.[facility] Repository 12/31/2017 [id number] Ambulatory BMSBuilding: [place] BMS.CF.[facility] Repository 12/26/2017/01/14/20 [id number] Ambulatory BMSBuilding: [place] 18 [facility] Repository 12/24/2017 [id number] Ashelf, Ambulatory BMSBuilding: [place] Ghasem BMS.[facility] Repository 12/24/2017 [id number] Ashelfah, Ambulatory BMSBuilding: [place] Ghasem BMS.[facility] Repository 12/24/2017 [id number] Ashelf, Ambulatory BMSBuilding: [place] Ghasem BMS.CF.[facility] Repository 12/24/2017 [id number] Ashelfah, Ambulatory BMSBuilding: [place] Ghasem BMS.[facility] Repository 12/24/2017/12/27/19 [id number] Ashelf, Inpatient [facility] 18 Ghasem Encounter [facility] ding:PCURoom Repository : FAA832Pol: 1 12/24/2017/12/27/19 [id number] Ambulatory BMSBuilding: [place] 18 [facility] Repository 12/24/2017 [id number] Ashelfah, Ambulatory BMSBuilding: [place] Ghasem BMS.CF.[facility] Repository 12/24/2017 [id number] Ambulatory BMSBuilding: [place] BMS.CF.[facility] Repository 12/19/2017 [id number] Ambulatory BMSBuilding: Gianna [facility] Repository 12/18/2017 [id number] Ambulatory BMSBuilding: [place] BMS.CF[facility] Repository 12/15/2017 [id number] Ambulatory BMSBuilding: [place] BMS.CF.[facility] Repository 12/07/2017 [id number] Koram, Aminah Ambulatory BMSBuilding: [place] Maricruz BMS.[facility] Repository 12/07/2017 [id number] Koram, Aminah Ambulatory BMSBuilding: [place] Maricruz BMS.[facility] Repository 12/07/2017 [id number] Koram, Aminah Ambulatory BMSBuilding: [place] Maricruz BMS.[facility] Repository 12/07/2017 [id number] Koram, Aminah Ambulatory BMSBuilding: [place] Maricruz BMS.[facility] Repository 12/07/2017 [id number] Koram, Aminah Ambulatory BMSBuilding: [place] Maricruz BMS.[facility] Repository 12/07/2017 [id number] Koram, Aminah Ambulatory BMSBuilding: [place] Maricruz BMS.CF.[facility] Repository 12/07/2017 [id number] Koram, Aminah Ambulatory BMSBuilding: [place] Maricruz BMS.[facility] Repository 12/07/2017/12/14/19 [id number] Aminah Vaz Inpatient [address] Encounter [facility] ding:LH6Eodd Repository : AF383Apd: 1 12/07/2017 [id number] Aminah Vaz Ambulatory BMSBuilding: [place] Maricruz BMS.[facility] Repository 12/04/2017/12/09/19 [id number] Ambulatory [address] Repository 12/03/2017 [id number] Ambulatory BMSBuilding: [place] BMS.CF.[facility] Repository 11/27/2017 [id number] Ambulatory BMSBuilding: [place] BMS.CF.[facility] Repository 11/26/2017 [id number] Ambulatory BMSBuilding: [place] BMS.CFCount includes the [facility] Repository 11/24/2017 [id number] Ambulatory BMSBuilding: [facility] Repository 11/21/2017/11/22/19 [id number] Emergency [address] ding:ED Repository 11/21/2017 [id number] Ambulatory BMSBuilding: [facility] Repository 11/18/2017 [id number] Ambulatory BMSBuilding: [facility] Repository 11/17/2017 [id number] Ambulatory BMSBuilding: [place] BMS..[facility] Repository 11/12/2017 [id number] Inpatient [address] [place] [address] Encounter HLURoom: 1A System HLUBed: Repository [id number] 11/12/2017 [id number] Ambulatory BMSBuilding: [place] BMS.[facility] Repository 11/10/2017/11/13/19 [id number] Ambulatory BMSBuilding: [place] [address] [place] [address] Repository 11/10/2017 [id number] Ashelfah, Ambulatory BMSBuilding: [place] Ghasem BMS.CF.[facility] Repository 11/10/2017 [id number] Ashelfah, Ambulatory BMSBuilding: [place] [facility] 11/10/2017 [id number] Ashelfah, Ambulatory BMSBuilding: [place] Ghasem [facility] Repository 11/10/2017 [id number] [place]helf, Ambulatory BMSBuilding: [place] Ghasem BMS.[facility] Repository 11/10/2017 [id number] Ashelfah, Ambulatory BMSBuilding: [place] Ghasem BMS.CF.[facility] Repository 11/10/2017 [id number] Ashelf, Ambulatory BMSBuilding: [place] Ghasem BMS.[facility] Repository 11/10/2017 [id number] Ashelf, Ambulatory BMSBuilding: [place] Ghasem BMS.CF.[facility] Repository 11/10/2017 [id number] [place]helf, Ambulatory BMSBuilding: [place] Ghasem [facility] Repository 11/10/2017 [id number] Ashelf, Ambulatory BMSBuilding: [place] Ghasem BMS.[facility] Repository 11/10/2017/11/13/19 [id number] [place]helf, Inpatient Gianna Gianna 18 [facility] ding:PCURoom Repository : [id number]: 1 11/10/2017/11/13/19 [id number] Ambulatory BMSBuilding: [place] 18 [facility] Repository 11/07/2017 [id number] Ambulatory [facility] ding:US Repository 11/06/2017 [id number] Ambulatory BMSBuilding: [place] BMS.CF.[facility] Repository 11/06/2017 [id number] Ambulatory BMSBuilding: [place] BMS.CF.[facility] Repository 10/29/2017 [id number] Ambulatory BMSBuilding: [place] BMS.CF.[facility] Repository 10/22/2017 [id number] Ambulatory BMSBuilding: [place] BMS.[facility] Repository 10/16/2017 [id number] Ambulatory [facility] ding:ONC Repository 10/14/2017 [id number] Ambulatory [facility] ding:MRI Repository 10/06/2017 [id number] Ambulatory BMSBuilding: [place] BMS.CF.[facility] Repository 10/02/2017/10/03/19 [id number] Ambulatory BMSBuilding: [place] 18 BMS.[facility] Repository 09/26/2017 [id number] Ambulatory BMSBuilding: [place] BMS.CF.[facility] Repository 09/26/2017/09/27/19 [id number] Ambulatory [address] ding:ENRoom: Repository AC10 09/19/2017/09/20/19 [id number] Ambulatory BMSBuilding: [place] 18 BMS.[facility] Repository 09/18/2017 [id number] Ambulatory BMSBuilding: [place] BMS.CF.[facility] Repository 09/16/2017 [id number] Ambulatory [facility] ding:CT Repository 08/22/2017 [id number] Ambulatory [facility] ding:LAB.FUT Repository URE 07/10/2017 [id number] Ambulatory BMSBuilding: [place] BMS.[facility] Repository 07/07/2017 [id number] Ambulatory [facility] ding:CT Repository PAYERS PAYERS ENCOUNTER GUARANTOR PAYER SUBSCRIBER SOURCE 05/06/2018 [facility] [id number] Box y Number: Effective [id number] Repository [address] [place] [address] Date: 12418Ilu: () 05/06/[address] [facility] Insurance:MedicarePol La CosteDOB: System icy Number: Effective [id number] Repository Date: 05/05/2018 TOMY A Primary TOMY Tai Thompson [id number] TR Insurance:HUMANA TULSADOB: [facility] [address] MEDICARE PPOPolicy [id number] Number: Repository [address]Suc: (138) [id number] [phone] (HP) Date:5464-98-20UV [address] [place] [address]UZ: 05/05/2018 Secondary NOT GIVENUNK Bigelow Insurance:SELF PAY [facility] Number: Effective Repository Date:2018-05-05 04/29/2018 Tomy A Primary Tomy A [facility] MartinDOB: Insurance:HumanaPolic MartinDOB: System [id number] Box y Number: Effective [id number] [facility] [place] Date: [address]Zxv: (HP) 04/24/2018 Tomy A Primary Tomy A [facility] MartinDOB: Insurance:HumanaPolic MartinDOB: System [id number] Box y Number: Effective [id number] [facility] [place] Date: [address]Jdp: (HP) 04/21/2018 Tomy A Primary Tomy A [facility] MartinDOB: Insurance:HumanaPolic MartinDOB: System [id number] Box y Number: Effective [id number] [facility] [place] Date: [address]Txj: (HP) 04/16/2018 TOMY A Primary TOMY A Gianna [id number] TR Insurance:HUMANA MARTINDOB: Community [address]ICARE [facility] [id number], [place] Number: Repository [address]Jpg: (412) [id number] [phone] (HP) Date:6041-29-90SG [address] [place] [address]OO: 04/16/2018 Secondary NOT GIVENUNK Gianna Insurance:SELF PAY [facility] Number: Effective Repository Date:2018-04-16 04/16/2018 TOMY A Primary TOMY A Gianna [id number] TR Insurance:HUMANA MARTINDOB: Community [address] MEDICARE [facility] [id number], [place] Number: Repository [address]Gnj: (409) [id number] [phone] (HP) Date:4189-69-17ZH [address] [place] [address]HS: 04/16/2018 Secondary NOT GIVENUNK Bigelow Insurance:SELF PAY [facility] Number: Effective Repository Date:2016-08-05 04/07/2018 TOMY MARTINDOB: Primary TOMY MARNIDOB: [facility] [id number] BOX Insurance:HUMANA [id number] [address] [place] [address] [facility] Repository [address]Hjv: (330) Number: [id number] () [id number] Date: 04/06/2018 TOMY A Primary TOMY [id number] TR Insurance:HUMANA MARNIDOB: Community [address]ICARE [facility] [id number] Number: Repository [address]Slj: 330 [id number] [phone] (HP) Date:0058-78-06AP [address] [address]GB: 04/06/2018 Secondary NOT GIVENUNK [place]elow Insurance:SELF PAY [facility] Number: Effective Repository Date:2018-04-06 04/06/2018 TOMY A Primary TOMY A Gianna [id number] TR Insurance:HUMANA MARNIDOB: Community [address] MEDICARE [facility] [id number] Number: Repository [address]Hwj: 330 [id number] [phone] () Date:8718-67-04WY [address] [address]AE: 04/06/2018 Secondary NOT GIVENUNK [place]elow Insurance:SELF PAY [facility] Number: Effective Repository Date:2018-04-06 04/06/2018 TOMY A Primary TOMY A Bigelow [id number] TR Insurance:HUMANA MARNIDOB: Community [address] MEDICARE [facility] [id number] Number: Repository [address]Lmn: 330 [id number] [phone] () Date:9510-49-62QU [address] [place] [address]VT: 04/06/2018 Secondary NOT GIVENUNK [place]elow Insurance:SELF PAY [facility] Number: Effective Repository Date:2018-04-06 04/06/2018 TOMY A Primary TOMY A Gianna [id number] TR Insurance:HUMANA MARTINDOB: Community [address] MEDICARE [facility] [id number] [place] Number: Repository [address]Nqo: (330 [id number] [phone] (HP) Date:6139-49-35YJ [address] [address]WJ: 04/06/2018 Secondary NOT GIVENUNK Gianna Insurance:SELF PAY [facility] Number: Effective Repository Date:2018-04-06 03/29/2018 TOMY A Primary TOMY A Gianna [id number] TR Insurance:HUMANA MARTINDOB: Community [address] MEDICARE [facility] [id number] [place] Number: Repository [address]Vbj: (330 [id number] [phone] (HP) Date:6174-08-40LO [address] [address]FH: 03/29/2018 Secondary NOT GIVENUNK [place]elow Insurance:SELF PAY [facility] Number: Effective Repository Date:2018-03-19 03/12/2018 TOMY A Primary TOMY A Bigelow [id number] TR Insurance:HUMANA MARNIDOB: Community [address]IC[address] [facility] [id number] Number: Repository [address]Yrq: (330 [id number] [phone] (HP) Date:5060-36-00ZW [address] [address]UC: 03/12/2018 Secondary NOT GIVENUNK Gianna Insurance:SELF PAY [facility] Number: Effective Repository Date:2018-03-12 02/26/2018 TOMY A Primary TOMY A Bigelow [id number] TR Insurance:HUMANA MARNIDOB: Community [address] MEDIC[address] [facility] [id number] [place] Number: Repository [address]Jux: (330 [id number] [phone] (HP) Date:2044-57-63RH [address] [address]LR: 02/26/2018 Secondary NOT GIVENUNK Gianna Insurance:SELF PAY [facility] Number: Effective Repository Date:2018-02-16 02/26/2018 TOMY A Primary TOMY Lujan Bigelow [id number] TR Insurance:HUMANA MARTINDOB: Community [address] MEDIC[address] [facility] [id number] Number: Repository [address]Ish: (330) [id number] [phone]) Date:1963-76-03QQELIZABETH [place] [address]12[address]WP: 02/26/2018 Secondary NOT GIVENUNK [place]elow Insurance:SELF PAY [facility] Number: Effective Repository Date:2018-02-26 02/12/2018 TOMY A Primary TOMY Lujan Gianna [id number] TR Insurance:HUMANA MARTINDOB: Community [address] MEDIC[address] [facility] [id number] Number: Repository [address]Wta: (330) [id number] [phone] (HP) Date:3122-93-34JFELIZABETH VILLE 69[address]12[address]WP: 02/12/2018 Secondary NOT GIVENUNK Gianna Insurance:SELF PAY [facility] Number: Effective Repository Date:2018-02-12 02/12/2018 TOMY A Primary TOMY Lujan Bigelow [id number] TR Insurance:HUMANA MARTINDOB: Community [address] MEDIC[address] [facility] [id number] Number: Repository [address]Cno: (330) [id number] [phone] (HP) Date:4223-42-32QR[address] [address]FO: 02/12/2018 Secondary NOT GIVENUNK [place]elow Insurance:SELF PAY [facility] Number: Effective Repository Date:2018-02-12 02/12/2018 TOMY A Primary TOMY Colemanoster [id number] TR Insurance:HUMANA MARTINDOB: Community [address] MEDICARE [facility] [id number] Number: Repository [address]Lbr: (330) [id number] [phone] (HP) Date:7898-21-53ZM [address] [place] [address]HL: 02/12/2018 Secondary NOT GIVENUNK Gianna Insurance:SELF PAY [facility] Number: Effective Repository Date:2018-02-11 01/22/2018 TOMY A Primary TOMY A Gianna [id number] TR Insurance:HUMANA TULSADOB: [facility] [address] [facility] [id number] [place] [address] Number: Repository [address]Kpe: (123) [id number] (HP) Date:7822-92-53WU[address] [address]EY: 01/22/2018 Secondary TOMY A Gianna Insurance:MED MUTUAL TULSADOB: [facility] Number: [id number] Hospital [id number] Repository Date:6288-49-55Gu [address]Dkpzbmwov, [place] [address]HU: CHECK WEBSITE 01/22/2018 Tertiary NOT GIVENUNK Bigelow Insurance:SELF PAY [facility] Number: Effective Repository Date:2018-01-22 01/20/2018 TOMY A Primary TOMY Lujan Eder Dwayne VASQUEZB: Insurance:MEDICAL MARTINDOB: [facility] [id number] Number: [id number] Hospital [id number] [facility] [id number] [address] Repository [place], [place] Date:Plan Name:LUCY LAWLER, [address]Cph: (330 [place] [phone] () 01/14/2018 TOMY A Primary TOMY A Gianna [id number] TR Insurance:MEDICARE TULSADOB: [facility] [address] PART A BPolicy [id number] Hospital [place] Number: Repository [address]Nbc: (413) [id number] (HP) Date:2016-08-05 01/14/2018 Secondary TOMY A Bigelow Insurance:MED MUTUAL [facility] Number: [id number] Hospital [id number] Repository Date:2520-94-74Ww [address] [address]wv, [place] [address]OC: CHECK WEBSITE 01/14/2018 Tertiary NOT GIVENUNK [place]elow Insurance:SELF PAY [facility] Number: Effective Repository Date:2018-01-14 01/12/2018 TOMY A Primary TOMY A Bigelowmelany [id number] TR Insurance:MEDICARE MARTINDOB: Community [address] PART A [facility] [id number] Number: Repository [id number]: 330 [id number] [phone] () Date:2018-01-12 01/12/2018 Secondary TOMY A Gianna Insurance:MED MUTUAL [facility]ADOB[facility]: [id number] Hospital [id number] Repository Date:8442-13-59Hp [address], [place] [address]VP: CHECK WEBSITE 01/12/2018 Tertiary NOT GIVENUNK Gianna Insurance:SELF PAY [facility] Number: Effective Repository Date:2018-01-12 01/12/2018 TOMY A Primary TOMY A Bigelow [id number] TR Insurance:MEDICARE MARTINDOB: Community [address] PART A [facility] [id number] Number: Repository [address]Uev: 330 [id number] [phone] () Date:2018-01-12 01/12/2018 Secondary TOMY A Gianna Insurance:MED MUTUAL TULSADOB[facility] [id number] Hospital [id number] Repository Date:1335-53-10Fl [address]Ipmqbmqyq, [place] [address]WF: CHECK WEBSITE 01/12/2018 Tertiary NOT GIVENUNK [place]elow Insurance:SELF PAY [facility] Number: Effective Repository Date:2018-01-12 01/12/2018 TOMY A Primary TOMY A Gianna [id number] TR Insurance:MEDICARE MARTINDOB: Community [address] PART A [facility] [id number] Number: Repository [address]Ard: (387) [id number] [phone] () Date:2018-01-12 01/12/2018 Secondary TOMY A Bigelow Insurance:MED MUTUAL MARTINDOB: Community TPAPolicy Number: [id number] Hospital [id number] Repository Date:3053-91-46So [address] [address]Txmzrdkgr, [place] [address]FT: CHECK WEBSITE 01/12/2018 Tertiary NOT GIVENUNK Gianna Insurance:SELF PAY [facility] Number: Effective Repository Date:2018-01-12 01/12/2018 TOMY A Primary Insurance:MED TOMY A Giannamelany [id number] TR [facility] [address] Number: [id number] [id number] Repository [address]Kbz: (330) Date:4069-09-66Qv [phone] () [address]Xxwcndsje, [place] [address]AA: CHECK WEBSITE 01/12/2018 Secondary TOMY A Bigelow Insurance:MEDICARE TULSADOB: Community PART A [facility] [id number] Hospital Number: Repository [id number] Date:2018-01-12 01/12/2018 Tertiary NOT GIVENUNK [place]elow Insurance:SELF PAY [facility] Number: Effective Repository Date:2018-01-12 01/12/2018 TOMY A Primary TOMY A Bigelow [id number] TR Insurance:MEDICARE MARTINDOB: Community [address] PART A [facility] [id number] Number: Repository [address]Hau: 330) [id number] [phone] () Date:2018-01-12 01/12/2018 Secondary TOMY A Gianna Insurance:MED MUTUAL MARTINDOB: Community TPAPolicy Number: [id number] Hospital [id number] Repository Date:1171-01-97UX [address] [address]AY, [place] [address]US: CHECK WEBSITE 01/12/2018 Tertiary NOT GIVENUNK Gianna Insurance:SELF PAY [facility] Number: Effective Repository Date:2018-01-12 01/09/2018 TOMY A Primary TOMY A Gianna [id number] TR Insurance:MEDICARE TULSADOB: Community [address] PART A [facility] [id number] Number: Repository [address]Jlr: (330 [id number] [phone] () Date:2017-12-26 01/09/2018 Secondary TOMY A Bigelow Insurance:MED MUTUAL MARTINDOB: Community TPAPolicy Number: [id number] Hospital [id number] Repository Date:3513-71-41Ud [address]Jbbjdnggp, [place] [address]DE: CHECK WEBSITE 01/09/2018 Tertiary NOT GIVENUNK Gianna Insurance:SELF PAY [facility] Number: Effective Repository Date:2018-01-09 01/08/2018 TOMY A Primary Insurance:MED TOMY A [place]elow [id number] [facility] [address] Number: [id number] [id number] Repository [address]Oxk: 330) Date:2084-48-62Rk [phone] () [address]Pzlbtqwsj, [place] [address]MU: CHECK WEBSITE 01/08/2018 Secondary TOMY A Bigelow Insurance:MEDICARE MARTINDOB: Community PART A [facility] [id number] Hospital Number: Repository [id number] Date:2016-08-05 01/08/2018 Tertiary NOT GIVENUNK [place]elow Insurance:SELF PAY [facility] Number: Effective Repository Date:2018-01-08 01/07/2018 TOMY A Primary Insurance:MED TOMY A Gianna [id number] [facility] [address] Number: [id number] [id number] Repository [address]Ybz: (330) Date:3128-12-80Eg [phone] () [address]Ucifsmnkq, [place] [address]JQ: CHECK WEBSITE 01/07/2018 Secondary TOMY A Gianna Insurance:MEDICARE MARTINDOB: Community PART A olic [id number] Hospital Number: Repository [id number] Date:2016-08-05 01/07/2018 Tertiary NOT GIVENUNK Gianna Insurance:SELF PAY [facility] Number: Effective Repository Date:2018-01-07 01/01/2018 TOMY A Primary Insurance:MED TOMY A Gianna [id number] TR [facility] TULSADOB: Community [address] Number: [id number] [id number] Repository [address]Crl: (330) Date:0791-17-31Ka [phone] (HP) [address]Rnydhhyyq, [place] [address]NC: CHECK WEBSITE 01/01/2018 Secondary TOMY A Gianna Insurance:MEDICARE MARTINDOB: Community PART A [facility] [id number] Hospital Number: Repository [id number] Date:2016-08-05 01/01/2018 Tertiary NOT GIVENUNK Gianna Insurance:SELF PAY [facility] Number: Effective Repository Date:2018-01-01 12/31/2017 TOMY A Primary Insurance:MED TOMY A Bigelow [id number] TR [facility] TULSADOB: Community [address] Number: [id number] [id number] Repository [address]Ohj: (330) Date:6800-09-78Bh [phone] () [address]Dvdbdbmii, [place] [address]TU: CHECK WEBSITE 12/31/2017 Secondary TOMY A Bigelow Insurance:MEDICARE MARTINDOB: Community PART A [facility] [id number] Hospital Number: Repository [id number] Date:2016-08-05 12/31/2017 Tertiary NOT GIVENUNK Gianna Insurance:SELF PAY [facility] Number: Effective Repository Date:2017-12-31 12/26/2017 TOMY A Primary TOMY A Giannamelany [id number] TR Insurance:MEDICARE MARTINDOB: Community [address] PART A [facility] [id number] Number: Repository [address]Rti: 330) [id number] [phone] () Date:2018-01-12 12/26/2017 Secondary TOMY A Bigelow Insurance:MED MUTUAL MARTINDOB: Community [facility] Number: [id number] Hospital [id number] Repository Date:2230-94-64Gz [address]Ihyfmqbrb, [place] [address]HV: CHECK WEBSITE 12/26/2017 Tertiary NOT GIVENUNK Gianna Insurance:SELF PAY [facility] Number: Effective Repository Date:2017-12-26 12/24/2017 TOMY A Primary Insurance:MED TOMY A Gianna [id number] TR MUTUAL TPAPolicy MARTINDOB: Community [address] Number: [id number] [id number] Repository [address]Odr: (330) Date:9569-95-75Qc [phone] (HP) [address]Ihaiijwyj, [place] [address]GX: CHECK WEBSITE 12/24/2017 Secondary TOMY A Bigelow Insurance:MEDICARE MARTINDOB: Community PART A [facility] [id number] Hospital Number: Repository [id number] Date:2017-12-24 12/24/2017 Tertiary NOT GIVENUNK Gianna Insurance:SELF PAY [facility] Number: Effective Repository Date:2017-12-24 12/24/2017 TOMY A Primary Insurance:MED TOMY A Gianna [id number] TR MUTUAL TPAPolicy TULSADOB: Community [address] Number: [id number] [id number] Repository [address]Gzd: (330) Date:3380-52-56Pz [phone] (HP) [address]Wblbggpjo, [place] [address]QX: CHECK WEBSITE 12/24/2017 Secondary TOMY A Gianna Insurance:MEDICARE MARTINDOB: Community PART A [facility] [id number] Hospital Number: Repository [id number] Date:2017-12-24 12/24/2017 Tertiary NOT GIVENUNK [place] Insurance:SELF PAY [facility] Number: Effective Repository Date:2017-12-24 12/24/2017 TOMY A Primary Insurance:MED TOMY A Bigelow [id number] TR MUTUAL TPAPolicy MARTINDOB: Community [address] Number: [id number] [id number] Repository [address]Bvf: (330) Date:0773-20-28Kk [phone] (HP) [address]Euldzumcu, [place] [address]TU: CHECK WEBSITE 12/24/2017 Secondary TOMY A Bigelow Insurance:MEDICARE MARTINDOB: Community PART A [facility] [id number] Hospital Number: Repository [id number] Date:2017-12-24 12/24/2017 Tertiary NOT GIVENUNK [place] Insurance:SELF PAY [facility] Number: Effective Repository Date:2017-12-24 12/24/2017 TOMY A Primary Insurance:MED TOMY A Bigelow [id number] TR [facility] TULSADOB: Community [address] Number: [id number] [id number] Repository [address]Iws: (330) Date:5913-55-17Ua [phone] (HP) [address]Fgigimqrf, [place] [address]RR: CHECK WEBSITE 12/24/2017 Secondary TOMY A Bigelow Insurance:MEDICARE MARTINDOB: Community PART A [facility] [id number] Hospital Number: Repository [id number] Date:2017-12-24 12/24/2017 Tertiary NOT GIVENUNK [place]elow Insurance:SELF PAY [facility] Number: Effective Repository Date:2017-12-24 12/24/2017 TOMY A Primary Insurance:MED TOMY A Gianna [id number] TR [facility] TULSADOB: Community [address] Number: [id number] [id number] Repository [address]Pop: (330) Date:5377-71-73Aw [phone] (HP) [address]Yrbblmajw, [place] [address]HY: CHECK WEBSITE 12/24/2017 Secondary TOMY A Gianna Insurance:MEDICARE MARTINDOB: Community PART A [facility] [id number] Hospital Number: Repository [id number] Date:2017-12-24 12/24/2017 Tertiary NOT GIVENUNK Gianna Insurance:SELF PAY [facility] Number: Effective Repository Date:2017-12-24 12/24/2017 TOMY A Primary Insurance:MED TOMY A Gianna [id number] TR MUTUAL TPAPolicy MARTINDOB: Community [address] Number: [id number] [id number] Repository [address]Zwb: (330) Date:9315-08-12Ts [phone] (HP) [address]Xqjoklbmo, [place] [address]XP: CHECK WEBSITE 12/24/2017 Secondary TOMY A Gianna Insurance:MEDICARE MARTINDOB: Community PART A olicy [id number] Hospital Number: Repository [id number] Date:2017-12-24 12/24/2017 Tertiary NOT GIVENUNK [place]elow Insurance:SELF PAY [facility] Number: Effective Repository Date:2017-12-24 12/24/2017 TOMY A Primary Insurance:MED TOMY A Gianna [id number] TR MUTUAL TPAPolicy MARTINDOB: Community [address] Number: [id number] [id number] Repository [address]Iop: (330) Date:3103-84-45Ot [phone] () [address]Wxffxbeoh, [place] [address]RG: CHECK WEBSITE 12/24/2017 Secondary TOMY A Gianna Insurance:MEDICARE MARTINDOB: Community PART A [facility] [id number] Hospital Number: Repository [id number] Date:2017-12-24 12/24/2017 Tertiary NOT GIVENUNK Gianna Insurance:SELF PAY [facility] Number: Effective Repository Date:2017-12-24 12/24/2017 TOMY A Primary Insurance:MED TOMY A Gianna [id number] TR MUTUAL TPAPolicy MARTINDOB: Community [address] Number: [id number] [id number] Repository [address]Xnr: (330) Date:5256-85-51Nd [phone] () [address]rp[place], [place] [address]IE: CHECK WEBSITE 12/24/2017 Secondary TOMY A Bigelow Insurance:MEDICARE MARTINDOB: Community PART A [facility] [id number] Hospital Number: Repository [id number] Date:2016-08-05 12/24/2017 Tertiary NOT GIVENUNK Gianna Insurance:SELF PAY [facility] Number: Effective Repository Date:2017-12-24 12/19/2017 TOMY A Primary TOMY A Gianna [id number] TR Insurance:MEDICARE MARTINDOB: Community [address] PART A [facility] [id number] Number: Repository [address]Twh: 330 [id number] () Date:2016-08-05 12/19/2017 Secondary TOMY A Gianna Insurance:MED MUTUAL MARTINDOB: Community TPAPolicy Number: [id number] Hospital [id number] Repository Date:5907-79-09Vt [address] [address]Ghtqohoui, [place] [address]TE: CHECK WEBSITE 12/19/2017 Tertiary NOT GIVENUNK Gianna Insurance:SELF PAY [facility] Hospital Number: Effective Repository Date:2017-12-19 12/18/2017 TOMY A Primary Insurance:MED TOMY A Gianna [id number] [facility] [address] Number: [id number] [id number] Repository [address]Djf: 330) Date:7529-18-81Xy [phone] () [address]azpiughi, [place] [address]ZB: CHECK WEBSITE 12/18/2017 Secondary TOMY A Bigelow Insurance:MEDICARE MARTINDOB: Community PART A [facility] [id number] Hospital Number: Repository [id number] Date:2016-08-05 12/18/2017 Tertiary NOT GIVENUNK Gianna Insurance:SELF PAY [facility] Number: Effective Repository Date:2017-12-18 12/15/2017 TOMY A Primary Insurance:MED TOMY A Gianna [id number] [facility] [address] Number: [id number] [id number] Repository [address]Azk: (330) Date:8365-60-53Px [phone] () [address]Ojxazuzpc, [place] [address]MT: CHECK WEBSITE 12/15/2017 Secondary TOMY A Gianna Insurance:MEDICARE MARTINDOB: Community PART A [facility] [id number] Hospital Number: Repository [id number] Date:2016-08-05 12/15/2017 Tertiary NOT GIVENUNK Gianna Insurance:SELF PAY [facility] Hospital Number: Effective Repository Date:2017-12-15 12/07/2017 TOMY A Primary TOMY A Gianna [id number] Insurance:MEDICAL MARTINDOB: Community [address] [facility] [id number] Number: Repository [id number]: [id number] [phone] (HP) Date:[id number] [address]AM: 12/07/2017 Secondary TOMY A Bigelow Insurance:MEDICARE [place]ART[place]OB: Community PART A [facility] [id number] Hospital Number: Repository [id number] Date:2017-12-07 12/07/2017 Tertiary NOT GIVENUNK [place] Insurance:SELF PAY [facility] Hospital Number: Effective Repository Date:2017-12-07 12/07/2017 TOMY A Primary TOMY A Gianna [id number] Insurance:MEDICAL MART[place]OB: Community [address] [facility] [id number] Number: Repository [id number]: [id number] [phone] (HP) Date:[id number] [address] [address]RV: 12/07/2017 Secondary TMOY A Bigelow Insurance:MEDICARE MART[place]OB: Community PART A [facility] [id number] Hospital Number: Repository [id number] Date:2017-12-07 12/07/2017 Tertiary NOT GIVENUNK Gianna Insurance:SELF PAY [facility] Number: Effective Repository Date:2017-12-07 12/07/2017 TOMY A Primary TOMY A Gianna [id number] TR Insurance:MEDICAL MARTINDOB: Community [address] [facility] [id number] Number: Repository [address]Wsp: 330 [id number] [phone] (HP) Date:0896-75-28BY[address] [address]XX: 12/07/2017 Secondary TOMY A Gianna Insurance:MEDICARE TULSADOB: Community PART A [facility] [id number] Hospital Number: Repository [id number] Date:2017-12-07 12/07/2017 Tertiary NOT GIVENUNK Gianna Insurance:SELF PAY [facility] Number: Effective Repository Date:2017-12-07 12/07/2017 TOMY A Primary TOMY A Gianna [id number] TR Insurance:MEDICAL MARTINDOB: Community [address] [facility] [id number] Number: Repository 18964Kdh: 330 [id number] [phone] (HP) Date:8506-50-91CA [address] [address]PE: 12/07/2017 Secondary TOMY A Bigelow Insurance:MEDICARE TULSADOB: Community PART A [facility] [id number] Hospital Number: Repository [id number] Date:2017-12-07 12/07/2017 Tertiary NOT GIVENUNK Gianna Insurance:SELF PAY [facility] Number: Effective Repository Date:2017-12-07 12/07/2017 TOMY A Primary TOMY A Bigelow [id number] TR Insurance:MEDICAL MARTINDOB: Community [address] [facility] [id number] Number: Repository [id number]: 330 [id number] [phone]) Date:4493-21-80JJ [address] [address]EV: 12/07/2017 Secondary TOMY A Bigelow Insurance:MEDICARE TULSADOB: Community PART A [facility] [id number] Hospital Number: Repository [id number] Date:2017-12-07 12/07/2017 Tertiary NOT GIVENUNK Gianna Insurance:SELF PAY [facility] Number: Effective Repository Date:2017-12-07 12/07/2017 TOMY A Primary TOMY A Bigelow [id number] TR Insurance:MEDICAL MARTINDOB: Community [address] [facility] [id number] Number: Repository [address]Ecn: (241) [id number] [phone] (HP) Date:5560-41-06FW [address] [address]ZD: 12/07/2017 Secondary TOMY A Bigelow Insurance:MEDICARE MARTINDOB: Community PART A [facility] [id number] Hospital Number: Repository [id number] Date:2017-12-07 12/07/2017 Tertiary NOT GIVENUNK Bigelow Insurance:SELF PAY [facility] Number: Effective Repository Date:2017-12-07 12/07/2017 TOMY A Primary Insurance:MED TOMY A Gianna [id number] TR [facility] [address] Number: [id number] [id number] Repository [address]Rry: 330) Date:2337-93-16Qh [phone] () [place], [place] [address]NO: CHECK WEBSITE 12/07/2017 Secondary TOMY A Gianna Insurance:MEDICARE TULSADOB: Community PART A [facility] [id number] Hospital Number: Repository [id number] Date:2017-12-07 12/07/2017 Tertiary NOT GIVENUNK Gianna Insurance:SELF PAY [facility] Number: Effective Repository Date:2017-12-07 12/07/2017 TOMY A Primary TOMY A Gianna [id number] TR Insurance:MEDICAL MARTINDOB: Community [address] [facility] [id number] Number: Repository [address]Vyi: 330 [id number] [phone] () Date:1672-44-19MD [address], [place] [address]UB: 12/07/2017 Secondary TOMY A Bigelow Insurance:MEDICARE TULSADOB: Community PART A [facility] [id number] Hospital Number: Repository [id number] Date:2017-12-07 12/07/2017 Tertiary NOT GIVENUNK Bigelow Insurance:SELF PAY [facility] Number: Effective Repository Date:2017-12-07 12/07/2017 TOMY A Primary TOMY A Gianna [id number] TR Insurance:MEDICAL TULSADOB: Community [address] [facility] [id number] Number: Repository [address]Ltb: 330 [id number] [phone] () Date:6943-85-05AP [address], [place] [address]WW: 12/07/2017 Secondary TOMY A Gianna Insurance:MEDICARE MARTINDOB: Community PART A [facility] [id number] Hospital Number: Repository [id number] Date:2017-12-07 12/07/2017 Tertiary NOT GIVENUNK Bigelow Insurance:SELF PAY [facility] Number: Effective Repository Date:2017-12-07 12/03/2017 TOMY A Primary Insurance:MED TOMY A Gianna [id number] TR [facility] [address] Number: [id number] [id number] Repository [address]Fjg: 330) Date:7633-70-71Vw [phone] () [address], [place] [address]QR: CHECK WEBSITE 12/03/2017 Secondary TOMY A Gianna Insurance:MEDICARE MARTINDOB: Community PART A [facility] [id number] Hospital Number: Repository [id number] Date:2016-08-05 12/03/2017 Tertiary NOT GIVENUNK Gianna Insurance:SELF PAY [facility] Number: Effective Repository Date:2017-12-03 11/27/2017 TOMY A Primary TOMY A Gianna [id number] TR Insurance:MEDICARE MARTINDOB: Community [address] PART A [facility] [id number] Number: Repository [address]Ngy: 330 [id number] [phone] () Date:2017-11-27 11/27/2017 Secondary TOMY A Bigelow Insurance:MED MUTUAL MARTINDOB: Community [facility] Number: [id number] Hospital [id number] Repository Date:5347-46-17Ny [address]ybrft, [place] [address]EY: CHECK WEBSITE 11/27/2017 Tertiary NOT GIVENUNK Gianna Insurance:SELF PAY [facility] Number: Effective Repository Date:2017-11-27 11/26/2017 TOMY A Primary TOMY A Gianna [id number] TR Insurance:MEDICARE MARTINDOB: Community [address] PART A [facility] [id number] Number: Repository [address]Yrm: 330 [id number] [phone] () Date:2017-11-27 11/26/2017 Secondary TOMY A Bigelow Insurance:MED [facility] Number: [id number] Hospital [id number] Repository Date:6270-04-16Il [address] [address], [place] [address]DR: CHECK WEBSITE 11/26/2017 Tertiary NOT GIVENUNK Gianna Insurance:SELF PAY [facility] Number: Effective Repository Date:2017-11-26 11/24/2017 TOMY A Primary Insurance:MED TOMY A Bigelow [id number] TR [facility] Community [address] Number: [id number] [id number] Repository [address]Tzk: 330) Date:9951-58-37Oo [phone] () [address]usnxmat, [place] [address]KS: CHECK WEBSITE 11/24/2017 Secondary TOMY A Bigelow Insurance:MEDICARE MARTINDOB: Community PART A [facility] [id number] Hospital Number: Repository [id number] Date:2016-08-05 11/24/2017 Tertiary NOT GIVENUNK Bigelow Insurance:SELF PAY [facility] Number: Effective Repository Date:2017-11-24 11/21/2017 TOMY A Primary TOMY A Gianna [id number] TR Insurance:MEDICAL MARTINDOB: Community [address] [facility] [id number] Number: Repository [address]Hhv: 330 [id number] [phone] () Date:3362-72-00KI [address], [place] [address]ID: 11/21/2017 Secondary TOMY A Bigelow Insurance:MEDICARE TULSADOB: Community PART A [facility] [id number] Hospital Number: Repository [id number] Date:2017-11-21 11/21/2017 Tertiary NOT GIVENUNK Gianna Insurance:SELF PAY [facility] Number: Effective Repository Date:2017-11-21 11/21/2017 TOMY A Primary Insurance:MED TOMY A Bigelow [id number] TR MUTUAL TPAPolicy MARTINDOB: Community [address] Number: [id number] [id number] Repository [address]Tku: (330) Date:5623-06-78Ns [phone] () 330[address]Qzkbqqgsn, [place] [address]CA: CHECK WEBSITE 11/21/2017 Secondary TOMY A Bigelow Insurance:MEDICARE MARTINDOB: Community PART A [facility] [id number] Hospital Number: Repository [id number] Date:2016-08-05 11/21/2017 Tertiary NOT GIVENUNK Gianna Insurance:SELF PAY [facility] Number: Effective Repository Date:2017-11-21 11/18/2017 TOMY A Primary Insurance:MED TOMY A Bigelow [id number] TR MUTUAL TPAPolicy MARTINDOB: Community [address] Number: [id number] [id number] Repository [address]Wyf: (330) Date:3683-47-38Dd [phone] () [address]rn, [place] [address]FZ: CHECK WEBSITE 11/18/2017 Secondary TOMY A Bigelow Insurance:MEDICARE MARTINDOB: Community PART A [facility] [id number] Hospital Number: Repository [id number] Date:2016-08-05 11/18/2017 Tertiary NOT GIVENUNK Gianna Insurance:SELF PAY [facility] Number: Effective Repository Date:2017-11-18 11/17/2017 TOMY A Primary TOMY A Bigelow [id number] TR Insurance:MEDICARE MARTINDOB: Community [address] PART A [facility] [id number] Number: Repository [address]Lfr: 330) [id number] [phone] () Date:2017-11-27 11/17/2017 Secondary TOMY A Bigelow Insurance:MED MUTUAL MARTINDOB: Community TPAPolicy Number: [id number] Hospital [id number] Repository Date:7049-19-66Gs [address] [address]az[place]p, [place] [address]LL: CHECK WEBSITE 11/17/2017 Tertiary NOT GIVENUNK Gianna Insurance:SELF PAY [facility] Number: Effective Repository Date:2017-11-17 11/12/2017 Tomy A Primary [facility]:Medical MartinDOB: System [id number] Box [facility] [id number] Repository [address] [place] [address] Number: Effective 399[address]Ivv: (330) Date: () 11/12/2017 Secondary Tomy A [facility] Insurance:MedicarePol La CosteDOB: System icy Number: Effective [id number] Repository Date: 11/12/2017 Tertiary [facility]omy A [facility] icy Number: Effective [id number] Repository Date: 11/12/2017 TOMY A Primary NOT GIVENUNK Bigelow [id number] TR Insurance:SELF PAY [address] Number: Effective Repository [address]Mut: 330) Date:2017-09-19 () 11/10/2017 TOMY A Primary TOMY A Gianna [id number] TR Insurance:MEDICAL MARTINDOB: [facility] [address] General acute hospital [id number] Number: Repository [address]Fim: 330 [id number] () Date:8286-36-00DU [address], [place] [address]KY: 11/10/2017 Secondary TOMY A Gainna Insurance:MEDICARE TULSADOB: Community PART A [facility] [id number] Hospital Number: Repository [id number] Date:2017-11-10 11/10/2017 Tertiary NOT GIVENUNK Gianna Insurance:SELF PAY [facility] Number: Effective Repository Date:2017-11-10 11/10/2017 TOMY A Primary TOMY A Gianna [id number] TR Insurance:MEDICAL TULSADOB: Community [address] [facility] acute [facility] [id number] Number: Repository [address]Auc: 330 [id number] [phone] (HP) Date:6398-51-53PO[address] [address]IR: 11/10/2017 Secondary TOMY A Bigelow Insurance:MEDICARE MARTINDOB: Community PART A [facility] [id number] Hospital Number: Repository [id number] Date:2017-11-10 11/10/2017 Tertiary NOT GIVENUNK Gianna Insurance:SELF PAY [facility] Number: Effective Repository Date:2017-11-10 11/10/2017 TOMY A Primary TOMY A Gianna [id number] TR Insurance:MEDICAL MARTINDOB: Community [address] [facility] [id number] Number: Repository [address]Xww: 330 [id number] [phone] (HP) Date:0135-08-10SI [address] [address]XF: 11/10/2017 Secondary TOMY A Bigelow Insurance:MEDICARE MARTINDOB: Community PART A [facility] [id number] Hospital Number: Repository [id number] Date:2017-11-10 11/10/2017 Tertiary NOT GIVENUNK Bigelow Insurance:SELF PAY [facility] Number: Effective Repository Date:2017-11-10 11/10/2017 TOMY A Primary TOMY A Gianna [id number] TR Insurance:MEDICAL MARTINDOB: Community [address] [facility] [id number] Number: Repository [address]Qpv: 330 [id number] [phone] (HP) Date:2949-22-22VQ[address] [address]GA: 11/10/2017 Secondary TOMY A Gianna Insurance:MEDICARE MARTINDOB: Community PART A [facility] [id number] Hospital Number: Repository [id number] Date:2017-11-10 11/10/2017 Tertiary NOT GIVENUNK Gianna Insurance:SELF PAY [facility] Number: Effective Repository Date:2017-11-10 11/10/2017 TOMY A Primary TOMY A Bigelow [id number] TR Insurance:MEDICAL MARTINDOB: Community [address] [facility] [id number] Number: Repository [address]Nwi: 330 [id number] [phone] (HP) Date:8174-63-60GX [address] [address]CP: 11/10/2017 Secondary TOMY A Bigelow Insurance:MEDICARE TULSADOB: Community PART A [facility] [id number] Hospital Number: Repository [id number] Date:2017-11-10 11/10/2017 Tertiary NOT GIVENUNK Gianna Insurance:SELF PAY [facility] Hospital Number: Effective Repository Date:2017-11-10 11/10/2017 TOMY A Primary TOMY A Gianna [id number] TR Insurance:MEDICARE TULSADOB: [facility] [address] PART A [facility] [id number] Number: Repository [address]23[address]Dqx: 330 [id number] [phone] (HP) Date:2017-11-10 11/10/2017 Secondary TOMY A Bigelow Insurance:MEDICAL MARTINDOB: [facility] [id number] Hospital Number: Repository [id number] Date:1709-63-06OR [address] [address]ZH: 11/10/2017 Tertiary NOT GIVENUNK Bigelow Insurance:SELF PAY [facility] Hospital Number: Effective Repository Date:2017-11-10 11/10/2017 TOMY A Primary TOMY A Gianna [id number] TR Insurance:MEDICAL TULSADOB: [facility] [address] [facility] [id number] Number: Repository [address]Bvy: 330 [id number] [phone] (HP) Date:8707-53-95QQ [address] [address]OQ: 11/10/2017 Secondary TOMY A Gianna Insurance:MEDICARE TULSADOB: Community PART A [facility] [id number] Hospital Number: Repository [id number] Date:2017-11-10 11/10/2017 Tertiary NOT GIVENUNK Gianna Insurance:SELF PAY [facility] Hospital Number: Effective Repository Date:2017-11-10 11/10/2017 TOMY A Primary Insurance:MED TOMY A Bigelow [id number] TR [facility] [address] Number: [id number] [id number] Repository [address]Dio: (330) Date:2889-37-83En [phone] (HP) [address], [place] [address]NX: CHECK WEBSITE 11/10/2017 Secondary TOMY A Gianna Insurance:MEDICARE MARTINDOB: Community PART A [facility] [id number] Hospital Number: Repository [id number] Date:2017-11-10 11/10/2017 Tertiary NOT GIVENUNK Bigelow Insurance:SELF PAY [facility] Number: Effective Repository Date:2017-11-10 11/10/2017 TOMY A Primary Insurance:MED TOMY A Gianna [id number] TR [facility] [address] Number: [id number] [id number] Repository [address]Pdo: (330) Date:1472-56-51Go [phone] (HP) [address]ven, [place] [address]WO: CHECK WEBSITE 11/10/2017 Secondary TOMY A Bigelow Insurance:MEDICARE MARTINDOB: Community PART A [facility] [id number] Hospital Number: Repository [id number] Date:2017-11-10 11/10/2017 Tertiary NOT GIVENUNK Bigelow Insurance:SELF PAY [facility] Hospital Number: Effective Repository Date:2017-11-10 11/10/2017 TOMY A Primary TOMY A Bigelow [id number] TR Insurance:MEDICAL MARTINDOB: Community [address] [facility] [id number] Number: Repository [address]Jbp: 330 [id number] [phone]) Date:0578-48-86OU[address] [address]VF: 11/10/2017 Secondary TOMY A Gianna Insurance:MEDICARE MARTINDOB: Community PART A [facility] [id number] Hospital Number: Repository [id number] Date:2017-11-10 11/10/2017 Tertiary NOT GIVENUNK Gianna Insurance:SELF PAY [facility] Number: Effective Repository Date:2017-11-10 11/10/2017 TOMY A Primary TOMY A Gianna [id number] TR Insurance:MEDICAL MARTINDOB: Community [address] [facility] [id number] Number: Repository [address]Oxt: (639) [id number] [phone] () Date:5543-87-40NX[address] [address]DU: 11/10/2017 Secondary TOMY A Gianna Insurance:MEDICARE MARTINDOB: Community PART A [facility] [id number] Hospital Number: Repository [id number] Date:2017-11-10 11/10/2017 Tertiary NOT GIVENUNK Gianna Insurance:SELF PAY [facility] Number: Effective Repository Date:2017-11-10 11/10/2017 TOMY A Primary TOMY A Bigelow [id number] TR Insurance:MEDICAL MARTINDOB: Community [address] [facility] [id number] Number: Repository [address]Wds: (223) [id number] [phone] () Date:1694-03-62JM[address] [address]AQ: 11/10/2017 Secondary TOMY A Gianna Insurance:MEDICARE MARTINDOB: Community PART A [facility] [id number] Hospital Number: Repository [id number] Date:2017-11-10 11/10/2017 Tertiary NOT GIVENUNK [place]ow Insurance:SELF PAY [facility] Number: Effective Repository Date:2017-11-10 11/07/2017 TOMY A Primary TOMY A Gianna [id number] TR Insurance:MEDICARE MARTINDOB: Community [address] PART A [facility] [id number] Number: Repository [address]Yzg: 330 [id number] [phone] (HP) Date:2017-11-06 11/07/2017 Secondary TOMY A Bigelow Insurance:MED MUTUAL TULSADOB: Community TPAPolicy Number: [id number] Hospital [id number] Repository Date:7916-84-35Qw [address] [address], [place] [address]VC: CHECK WEBSITE 11/07/2017 Tertiary NOT GIVENUNK Gianna Insurance:SELF PAY [facility] Hospital Number: Effective Repository Date:2017-11-06 11/06/2017 TOMY A Primary TOMY A Gianna [id number] TR Insurance:MEDICARE MARTINDOB: Community [address] PART A [facility] [id number] Number: Repository [address]Bjs: 330 [id number] [phone] () Date:2017-11-27 11/06/2017 Secondary TOMY A Bigelow Insurance:MED MUTUAL TULSADOB: [facility] Number: [id number] Hospital [id number] Repository Date:1309-07-56Ov [address] [address], [place] [address]RF: CHECK WEBSITE 11/06/2017 Tertiary NOT GIVENUNK Bigelow Insurance:SELF PAY [facility] Hospital Number: Effective Repository Date:2017-11-06 11/06/2017 TOMY A Primary TOMY A Bigelow [id number] TR Insurance:MEDICAL MARTINDOB: Community [address] [facility] [id number], [place] Number: Repository [address]Pnr: 330 [id number] [phone] (HP) Date:9067-53-28PD [address], [place] [address]ZK: 11/06/2017 Secondary TOMY A Bigelow Insurance:MEDICARE MARTINDOB: Community PART A [facility] [id number] Hospital Number: Repository [id number] Date:2017-11-18 11/06/2017 Tertiary NOT GIVENUNK [place]elow Insurance:SELF PAY [facility] Hospital Number: Effective Repository Date:2017-11-06 10/29/2017 TOMY A Primary TOMY A Gianna [id number] TR Insurance:MEDICARE MARTINDOB: Community [address] PART A [facility] [id number] Number: Repository [address]Ajz: 330 [id number] [phone] (HP) Date:2017-09-16 10/29/2017 Secondary TOMY A Bigelow Insurance:MED MUTUAL MARTINDOB: [facility]: [id number] [id number] Repository Date:7260-82-78[address] [address], [place] [address]PW: CHECK WEBSITE 10/29/2017 Tertiary NOT GIVENUNK Bigelow Insurance:SELF PAY [facility] Number: Effective Repository Date:2017-10-29 10/22/2017 TOMY A Primary Insurance:MED TOMY A Bigelow [id number] TR [facility] Community [address] Number: [id number] [id number] Repository [address]Feo: 330) Date:7524-77-53Tq [phone] () [address]jpiufqwv, [place] [address]XG: CHECK WEBSITE 10/22/2017 Secondary TOMY A Bigelow Insurance:MEDICARE MARTINDOB: Community PART A [facility] [id number] Hospital Number: Repository [id number] Date:2017-11-06 10/22/2017 Tertiary NOT GIVENUNK Gianna Insurance:SELF PAY [facility] Number: Effective Repository Date:2017-10-22 10/16/2017 TOMY A Primary TOMY A Bigelow [id number] TR Insurance:MEDICARE MARTINDOB: Community [address] PART A [facility] [id number] Number: Repository [address]Cll: 330 [id number] [phone] () Date:2017-10-15 10/16/2017 Secondary TOMY A Bigelow Insurance:MED MUTUAL MARTINDOB: [facility]: [id number] Hospital [id number] Repository Date:0740-38-30Bn [address] [address]Xzo[place]ymtr, [place] [address]BY: CHECK WEBSITE 10/16/2017 Tertiary NOT GIVENUNK Gianna Insurance:SELF PAY [facility] Hospital Number: Effective Repository Date:2017-10-15 10/14/2017 TOMY A Primary TOMY A Gianna [id number] TR Insurance:MEDICARE MARTINDOB: Community [address] PART A BPolicy [id number] Number: Repository [address]Trg: 330 [id number] [phone] (HP) Date:2017-10-06 10/14/2017 Secondary TOMY A Gianna Insurance:MED MUTUAL MARTINDOB: Community TPAPolicy Number: [id number] Hospital [id number] Repository Date:5193-96-32Xu [address] [address], [place] [address]YY: CHECK WEBSITE 10/14/2017 Tertiary NOT GIVENUNK [place] Insurance:SELF PAY [facility] Number: Effective Repository Date:2017-10-06 10/06/2017 TOMY A Primary Insurance:MED TOMY A Gianna [id number] TR MUTUAL TPAPolicy MARTINDOB: Community [address] Number: [id number] [id number] Repository [address]Yvr: (330) Date:7995-50-38Tb [phone] () [address]Vexeprqfx, [place] [address]OQ: CHECK WEBSITE 10/06/2017 Secondary NOT GIVENUNK Bigelow Insurance:SELF PAY [facility] Number: Effective Repository Date:2017-10-06 10/02/2017 TOMY A Primary Insurance:MED TOMY A Gianna [id number] TR MUTUAL TPAPolicy MARTINDOB: Community [address] Number: [id number] [id number] Repository [address]Tyv: (330) Date:7386-64-73Qi [phone] (HP) [address]Zsutqmxyg, [place] [address]OZ: CHECK WEBSITE 10/02/2017 Secondary NOT GIVENUNK Gianna Insurance:SELF PAY [facility] Number: Effective Repository Date:2017-09-30 09/26/2017 Tomy A Primary Insurance:MED Tomy A Gianna [id number] Tr MUTUAL [facility] Community [address] Box Number: [id number] [id number] Repository [address]Xsz: (330) Date:4910-44-30Eg [phone] (HP) [address]Movszqasb, [place] [address]KE: CHECK WEBSITE 09/26/2017 Secondary NOT GIVENUNK Gianna Insurance:SELF PAY [facility] Number: Effective Repository Date:2017-09-26 09/26/2017 Tomy Lujan Primary Insurance:MED Tomy A Gianna [id number] [address] [facility] [address] Box Number: [id number] [id number] Repository [address]Dpo: (330) Date:4781-71-79Yh [phone] (HP) [address]Jrmcigrem, [place] [address]AT: CHECK WEBSITE 09/26/2017 Secondary NOT GIVENUNK Gianna Insurance:SELF PAY [facility] Number: Effective Repository Date:2017-09-19 09/19/2017 Tomy Lujan Primary Insurance:MED Tomy [id number] [facility] [address] Box Number: [id number] [id number] Repository [id number]: ([phone]) Date:[id number] [phone] (HP) [address], [place] [address]KQ: CHECK WEBSITE 09/19/2017 Secondary NOT GIVENUNK Gianna Insurance:SELF PAY [facility] Number: Effective Repository Date:2017-09-19 09/18/2017 Tomy Lujan Primary Insurance:MED Tomy A Gianna [id number] [facility] [address] Box Number: [id number] [id number] Repository [address]Qqk: (330) Date:4047-77-69Sf [phone] (HP) [address], [place] [address]CP: CHECK WEBSITE 09/18/2017 Secondary NOT GIVENUNK [place] Insurance:SELF PAY [facility] Number: Effective Repository Date:2017-09-18 09/16/2017 Tomy A Primary Insurance:MED Tomy A Gianna [id number] MUT[employer] TPAPolicy MartinDOB: Community [address]Po Box Number: [id number] [id number] Repository [address]Ule: ([phone]) Date:0640-26-67Wk [phone] () [address], [place] [address]OI: CHECK WEBSITE 09/16/2017 Secondary NOT GIVENUNK Gianna Insurance:SELF PAY [facility] Number: Effective Repository Date:2017-07-10 08/22/2017 Tomy A Primary Insurance:MED Tomy A [place] [id number] Tr [facility] [place] Cost[place]DOB: Community [address] Box Number: [id number] [id number] Repository [address]Uib: (330) Date:1796-95-45Eq [phone] () [address], [place] [address]KY: CHECK WEBSITE 08/22/2017 Secondary NOT GIVENUNK Gianna Insurance:SELF PAY [facility] Number: Effective Repository Date:2017-08-19 07/10/2017 Tomy A Primary Insurance:MED Tomy A Gianna [id number] Tr [facility] [place] Cost[place]DOB: Community [address] Box Number: [id number] [id number] Repository [address]Tib: (330) Date:8481-98-04Nc [phone] () [address], [place] [address]IS: CHECK WEBSITE 07/10/2017 Secondary NOT GIVENUNK Gianna Insurance:SELF PAY [facility] Number: Effective Repository Date:2017-07-10 07/07/2017 Tomy A Primary Insurance:MED Tomy [id number] Tr [facility]olicHoly [facility] CenterD[facility] [address] Box Number: [id number] [id number] Repository [address]Fsi: (330) Date:9595-91-08JV [phone] () [address], [place] [address]AJ: CHECK WEBSITE 07/07/2017 Secondary NOT GIVENUNK Gianna Insurance:SELF PAY [facility] Effective Repository Date:2017-04-09
== END 2018-05-05 23:44 | disposition short-term general hospital (02) ==
LOC: ED 18:47
PROVIDERS: Emergency Provider Emergency Medicine; Family Provider Nurse Practitioner Family; PCP Nurse Practitioner Family
DX: C15.9 Malignant neoplasm of esophagus, unspecified (principal); C34.90 Malignant neoplasm of unspecified part of unspecified bronchus or lung; J18.9 Pneumonia, unspecified organism; C79.31 Secondary malignant neoplasm of brain; R53.1 Weakness; I48.91 Unspecified atrial fibrillation; I48.92 Unspecified atrial flutter; G40.909 Epilepsy, unspecified, not intractable, without status epilepticus; Z79.899 Other long term (current) drug therapy; Z87.891 Personal history of nicotine dependence
CPT/HCPCS: 36415; 36591; 70450; 71045; 80048; 80076; 83605; 85025; 85610; 85730; 87040; 93005; 96365; 96367; 96375; 99285; J7030; J7050; A4216